=== PATIENT | female | born 1960 | race Caucasian/White ===

== ENCOUNTER 2016-07-17 14:18 | Emergency (ER) | payer OTHER ==
[2016-07-17 14:46] VITALS: BMI 25.0
--- NOTE | 2016-07-17 14:46 | PDOC ---
Attending Attestation - Medical Decision Making 07/17/16 15:02 Dr. Connell paged via phone answering service at 3:[address] Jones irrigation engineer for Dr. Connell. Dr. Jones responded to the page and the patients case was discussed at 3:[address] Jones <Lien Mascorro - Last Filed: 07/17/16 16:10> - Resident Resident Name: Saud Holland - ED Attending Attestation I have performed the following: I have examined & evaluated the patient, The case was reviewed & discussed with the resident, I agree w/resident's findings & plan, Exceptions are as noted - HPI HPI: 07/17/16 14:57 The patient is a 56-year-old female with a significant past medical history of diabetes, who presents to the emergency department with left eye pain. She was in her usual state of health until she "fell out of bed" last night." She states that she does not recall the details of the event, but woke up on the floor, with left eye pain. Since that time, the eye has been swollen and painful. The pain is of the eye itself and is worse with opening and closing. She states that she is unable to see out of that eye. She states that at best, she is able to differentiate between darkness and light. She denies any pain or suspected injury elsewhere. She denies headache, nausea/vomiting, focal weakness or paresthesias. 07/17/16 15:08 07/17/16 16:17 07/17/16 16:17 - Physicial Exam PE: 07/17/16 14:54 Vitals noted No facial bone tenderness The left eye has periorbital edema, but no evidence of proptosis There is considerable subconjunctival hemorrhage, especially inferior to the iris PERRLA, EOMI No hyphema Anterior chamber slightly cloudy Negative Kamar's sign Abrasion seen on Flourescein, overlying pupil and iris 07/17/16 15:06 07/17/16 15:08 07/17/16 16:17 - Medical Decision Making 07/17/16 15:00 The patient is well appearing and in no acute distress I am concerned for possible retrobulbar hematoma Paging ophthalmology Will CT head and facial bones 07/17/16 15:06 Case discussed with ophthalmology Will await CT scan and discuss with results 07/17/16 16:08 CT scans reviewed with radiologist, Dr. Dr. Kam No evidence of intracranial pathology No evidence of facial bone fracture, retrobulbar hematoma, optic nerve trauma The patient's pain has completely resolved She would like to go home Her daughter can assist her tonight and help her get to the naval inspector's office tomorrow Clinical impression: Facial contusion Corneal abrasion Case discussed with ophthalmology again He will see her in follow-up tomorrow morning I discussed the physical exam findings, ancillary test results and final diagnoses with the patient. I answered all of the patient's questions. The patient was satisfied with the care received and felt comfortable with the discharge plan and treatment plan. The patient will call their primary care physician within 24 hours to arrange follow-up and will return to the Emergency Department with any new, persistent or worsening symptoms. <Rickie Londono - Last Filed: 07/17/16 16:18> Discharge Disposition <Lien Mascorro - Last Filed: 07/17/16 16:10> - Discharge Dispostion Last Admission D/C Date: 01/27/16 <Rickie Londono - Last Filed: 07/17/16 16:18> - Diagnosis Facial contusion, Corneal abrasion, left - Discharge Dispostion Disposition: HOME Condition at time of disposition: Improved - Prescriptions Prescriptions: Erythromycin 0.5% Eye Ointment [Erythromycin 0.5% Eye Ointment -] 1 applic OD 5XD #1 tube Oxycodone HCl/Acetaminophen [Percocet 5-325 mg Tablet] 1 - 2 combo PO Q4H PRN # 9 tablet MDD 4 PRN Reason: Pain - Referrals Referrals: Flex Starr MD [Primary Care Provider] - Jaswant Jones MD [Staff Physician] - (See him tomorrow at either 9am or 1pm He is aware of your ER visit today) - Patient Instructions Printed Discharge Instructions: DI for Corneal Abrasion, DI for Closed Head Injury, DI for Contusion Additional Instructions: The pain in her left eye seems secondary to a scratch, which we call a corneal abrasion. It is important that you follow-up with the naval inspector tomorrow morning at 9 AM or tomorrow afternoon at 1 PM. He is aware of your emergency department visit and is expecting you. Use the medications as prescribed. Return to the emergency department immediately with ANY new, persistent or worsening symptoms. You MUST call and follow up with your doctor tomorrow. Please make sure your doctor reviews the results of your emergency department evaluation.
[2016-07-17] MEDS ORDERED: FLUORESCEIN NA 1 EA STRIP ONE (15:01)
[2016-07-17] MEDS ORDERED: TETRACAINE 0.5% OPHTH SOLN 2 ML BOTTLE ONE (15:02)
[2016-07-17 15:24] LABS: BASOPHIL 0.7 % (0-2.0); EOSINOPHIL 5.8 % (0-4.5); MCH 33.6 pg (25.7-33.7); MEAN CELL VOLUME 101.8 fl (80-96); MEAN PLT VOLUME 8.2 fl (7.5-11.1); NEUTROPHILS 65.3 % (42.8-82.8); PLATELET COUNT 286 K/MM3 (134-434); RDW 12.9 % (11.6-15.6); WHITE BLOOD COUNT 9.5 K/mm3 (4.0-10.0)
--- NOTE | 2016-07-17 15:47 | PDOC ---
History of Present Illness - General Chief Complaint: Injury Stated Complaint: EYE INJURY Time Seen by Provider: 07/17/16 14:46 - History of Present Illness Initial Comments: 07/17/16 15:07 56 yo F with significant PMHx of CAD (s/p stents on ASA and plavix),IDDM, and depression presents s/p fall and eye injury. She states that last night she fell out of bed unsure how. She remembers waking up and her son and daughter were there. She had eye pain and went back to sleep. When she woke she could not see out of eye and prompted trip to ED. She can not see out of left eye at all. Her right eye she is having difficulty see. Denies CP, SOB, abd. pain, N/V. Past History - Past Medical History Allergies/Adverse Reactions: Allergies Allergy/AdvReac Type Severity Reaction Status Date / Time No Known Drug Allergies Allergy Verified 07/17/16 14:32 Home Medications: Ambulatory Orders Aspirin [ASA -] 81 mg PO DAILY 01/23/16 Clopidogrel Bisulfate [Clopidogrel] 75 mg PO DAILY 01/23/16 Duloxetine HCl [Cymbalta -] 90 mg PO DAILY 01/23/16 Lovastatin [Altoprev] 40 mg PO BID 01/23/16 Insulin Sliding Scale [Novolog Vial Sliding Scale -] 1 vial SQ ACHS units 01/26 Erythromycin 0.5% Eye Ointment [Erythromycin 0.5% Eye Ointment -] 1 applic OD 5XD #1 tube 07/17/16 Insulin (Novolog 70/30) [Novolog Mix 70/30 Vial -] 32 units SQ BID 07/17/16 Oxycodone HCl/Acetaminophen [Percocet 5-325 mg Tablet] 1 - 2 combo PO Q4H PRN # 9 tablet MDD 4 07/17/16 Primidone [Mysoline] 750 mg PO DAILY 07/17/16 Anemia: No Asthma: No Cancer: Yes (VAGINAL/CERVICAL CANCER- S/P LASAR SURGERY) Cardiac Disorders: Yes (ASHD, TRIPLE BYPASS, S/P [place] X1 in 2004,STENT X'S 3) CVA: No COPD: No CHF: No Dementia: No Diabetes: Yes (IDDM) GI Disorders: No Disorders: No HTN: Yes Hypercholesterolemia: Yes Liver Disease: No Suicide Attempt (Hx): No Seizures: No Thyroid Disease: No - Surgical History Abdominal Surgery: No Appendectomy: No Cardiac Surgery: Yes (THREE STENTS 2006) Cholecystectomy: No Lung Surgery: No Neurologic Surgery: No Orthopedic Surgery: Yes (BILATERAL CTR) - Immunization History Td Vaccination: No TDAP Vaccination: No Immunization Up to Date: No - Psycho/Social/Smoking Cessation Hx Anxiety: No Suicidal Ideation: No Smoking Status: Yes Smoking History: Never smoked Years of Tobacco Use: 15 Have you smoked in the past 12 months: No Number of Cigarettes Smoked Daily: 4 Cigars Per Day: 10 Information on smoking cessation initiated: No 'Breaking Loose' booklet given: 01/24/16 Hx Alcohol Use: No Drug/Substance Use Hx: No Substance Use Type: None Hx Substance Use Treatment: No Review of Systems - Review of Systems HEENTM: Yes: Eye Pain, Blurred Vision, Tearing, Recent change in vision All Other Systems: Reviewed and Negative *Physical Exam - Vital Signs Last Vital Signs Temp Pulse Resp BP Pulse Ox 98.2 F 72 17 131/56 99 07/17/16 14:32 07/17/16 14:32 07/17/16 14:32 07/17/16 14:32 07/17/16 14:32 - Physical Exam General Appearance: Yes: Moderate Distress HEENT: positive: Photophobia, Lesions (left eye shows subconjuctival hemorrhage. Pupil is reactive. ) ED Treatment Course - LABORATORY CBC & Chemistry Diagram: 07/17/16 14:56 07/17/16 14:56 - RADIOLOGY Radiograph Interpretation: 07/17/16 16:47 EXAM#: TYPE/EXAM: RESULT: [id number] CT/HEAD CT WITHOUT CONTRAST [id number] CT/ FACIAL BONES CT W/O CONTRAST Status post trauma CT scan of the brain without intravenous contrast Since 06/07/2015, there remains mild volume loss, ventricular dilatation and probable minimal periventricular chronic microvascular ischemic changes. No mass lesion, focal acute infarct or intracranial hemorrhage is identified. There is no shift of the midline structures. The calvarium is intact. Mild mucosal thickening in the ethmoid air cells. Minimal mucosal thickening and probable tiny air-fluid level in the left maxillary antrum. Calcification of the cavernous carotid arteries are present. Mild left periorbital soft tissue swelling. IMPRESSION: Volume loss without evidence of acute intracranial pathology. Mild left periorbital soft tissue swelling. Correlate clinically. CT scan of the facial bones without intravenous contrast. Coronal and sagittal reconstruction images were obtained. No gross fracture is identified. Both orbits are intact . There is mild left periorbital soft tissue swelling. Both TM joints are intact. Mild mucosal thickening in the ethmoid air cells and minimal air-fluid level in the left maxillary antrum, posteriorly Mucosal thickening is obstructing the left maxillary ostium and ethmoid infundibulum. Bilateral upper neck and submandibular subcentimeter lymph nodes are present which are nonspecific Visualized intracranial contents appear unremarkable. IMPRESSION: Mild left periorbital soft tissue swelling. No gross fracture is identified. No retrobulbar abnormal attenuation is identified. Mild ethmoid chronic sinusitis and suggestion of minimal acute sinusitis in the left maxillary antrum. Obstruction of the left maxillary ostium and ethmoidal infundibulum. Reported By: Dafne Kam MD 07/17/16 1609 Medical Decision Making - Medical Decision Making 07/17/16 16:15 A:56 yo F with significant PMHx of CAD (s/p stents on ASA and plavix),IDDM, and depression presents s/p fall and eye injury. P: * CBC, CMP. * Fluorsciene test reveals corneal abrasion * Will consult Opthalmology *DC/Admit/Observation/Transfer Diagnosis at time of Disposition: Facial contusion Qualifiers: Encounter type: initial encounter Qualified Code(s): S00.83XA - Contusion of other part of head, initial encounter Corneal abrasion, left Qualifiers: Encounter type: initial encounter Qualified Code(s): S05.02XA - Injury of conjunctiva and corneal abrasion without foreign body, left eye, initial encounter - Discharge Dispostion Disposition: HOME Condition at time of disposition: Improved - Prescriptions Prescriptions: Erythromycin 0.5% Eye Ointment [Erythromycin 0.5% Eye Ointment -] 1 applic OD 5XD #1 tube Oxycodone HCl/Acetaminophen [Percocet 5-325 mg Tablet] 1 - 2 combo PO Q4H PRN # 9 tablet MDD 4 PRN Reason: Pain - Referrals Referrals: Flex Starr MD [Primary Care Provider] - Jaswant Jones MD [Staff Physician] - (See him tomorrow at either 9am or 1pm He is aware of your ER visit today) - Patient Instructions Printed Discharge Instructions: DI for Corneal Abrasion, DI for Contusion, DI for Closed Head Injury Additional Instructions: The pain in her left eye seems secondary to a scratch, which we call a corneal abrasion. It is important that you follow-up with the bingo caller tomorrow morning at 9 AM or tomorrow afternoon at 1 PM. He is aware of your emergency department visit and is expecting you. Use the medications as prescribed. Return to the emergency department immediately with ANY new, persistent or worsening symptoms. You MUST call and follow up with your doctor tomorrow. Please make sure your doctor reviews the results of your emergency department evaluation.
[2016-07-17 16:19] LABS: INR 0.94 (0.82-1.09); PROTHROMBIN TIME (PATIENT) 10.3 SEC (9.98-11.88)
[2016-07-17 16:21] LABS: ACTIVATED PTT 30.5 SECONDS (26.9-34.4)
[2016-07-17 17:07] VITALS: BP 126/58; PULSE 75; TEMP 98.6
== END 2016-07-17 17:07 | disposition home or self-care (01) ==
LOC: JER 14:18
DX: S00.83XA Contusion of other part of head, initial encounter (principal); S05.02XA Injury of conjunctiva and corneal abrasion without foreign body, left eye, initial encounter; H11.32 Conjunctival hemorrhage, left eye; I25.2 Old myocardial infarction; I25.10 Atherosclerotic heart disease of native coronary artery without angina pectoris; I10 Essential (primary) hypertension; Z95.5 Presence of coronary angioplasty implant and graft; E11.9 Type 2 diabetes mellitus without complications; Z79.4 Long term (current) use of insulin; E78.00 Pure hypercholesterolemia, unspecified; W06.XXXA Fall from bed, initial encounter; Y93.89 Activity, other specified; Y92.032 Bedroom in apartment as the place of occurrence of the external cause
CPT/HCPCS: 36415; 70450-TC; 70486-TC; 71010-TC; 85025; 85610; 85730; 99284-25

== ENCOUNTER 2016-07-27 05:45 | Emergency (ER) | payer OTHER ==
[2016-07-27 06:16] VITALS: BMI 23.3
[2016-07-27 07:30] LABS: BASOPHIL 0.4 % (0-2.0); EOSINOPHIL 0.8 % (0-4.5); MCH 33.7 pg (25.7-33.7); MCHC 33.1 g/dl (32.0-36.0); MEAN CELL VOLUME 101.7 fl (80-96); MEAN PLT VOLUME 7.9 fl (7.5-11.1); NEUTROPHILS 81.6 % (42.8-82.8); PLATELET COUNT 255 K/MM3 (134-434); WHITE BLOOD COUNT 12.9 K/mm3 (4.0-10.0)
[2016-07-27 08:09] LABS: ALBUMIN 3.5 g/dl (3.4-5.0); ANION GAP 7 (8-16); CALCIUM 8.7 mg/dL (8.5-10.1); CO2 28 mmol/L (21-32); CREATININE 0.8 mg/dL (0.55-1.02); SGOT/AST 42 U/L (15-37); SGPT/ALT 49 U/L (12-78); TOT PROT 6.7 g/dl (6.4-8.2)
[2016-07-27 08:13] LABS: ALK PHOS 102 U/L (45-117); BILIRUBIN,TOTAL 0.2 mg/dL (0.2-1.0)
--- NOTE | 2016-07-27 08:20 | PDOC ---
History of Present Illness - General Chief Complaint: Blood Sugar Problem Stated Complaint: BLOOD SUGAR PROBLEM Time Seen by Provider: 07/27/16 07:11 - History of Present Illness Initial Comments: 08/08/16 10:18 56 yo here with hypoglycemia, Past History - Past Medical History Allergies/Adverse Reactions: Allergies Allergy/AdvReac Type Severity Reaction Status Date / Time No Known Drug Allergies Allergy Verified 07/27/16 06:03 Home Medications: Ambulatory Orders Aspirin [ASA -] 81 mg PO DAILY 01/23/16 Clopidogrel Bisulfate [Clopidogrel] 75 mg PO DAILY 01/23/16 Duloxetine HCl [Cymbalta -] 90 mg PO DAILY 01/23/16 Lovastatin [Altoprev] 40 mg PO BID 01/23/16 Insulin Sliding Scale [Novolog Vial Sliding Scale -] 1 vial SQ ACHS units 01/26 Insulin (Novolog 70/30) [Novolog Mix 70/30 Vial -] 32 units SQ BID 07/17/16 Oxycodone HCl/Acetaminophen [Percocet 5-325 mg Tablet] 1 - 2 combo PO Q4H PRN # 9 tablet MDD 4 07/17/16 Primidone [Mysoline] 750 mg PO DAILY 07/17/16 Dextrose Tablet [Glucose Tablet -] 4 gm PO PRN PRN #30 tab.chew 07/27/16 Anemia: No Asthma: No Cancer: Yes (VAGINAL/CERVICAL CANCER- S/P LASAR SURGERY) Cardiac Disorders: Yes (ASHD, TRIPLE BYPASS, S/P CT X1 in 2004,STENT X'S 3) CVA: No COPD: No CHF: No Dementia: No Diabetes: Yes (IDDM) GI Disorders: No Disorders: No HTN: Yes Hypercholesterolemia: Yes Liver Disease: No Suicide Attempt (Hx): No Seizures: No Thyroid Disease: No - Surgical History Abdominal Surgery: No Appendectomy: No Cardiac Surgery: Yes (THREE STENTS 2006) Cholecystectomy: No Lung Surgery: No Neurologic Surgery: No Orthopedic Surgery: Yes (BILATERAL CTR) - Immunization History Td Vaccination: No TDAP Vaccination: No Immunization Up to Date: No - Psycho/Social/Smoking Cessation Hx Anxiety: No Suicidal Ideation: No Smoking Status: Yes Smoking History: Current every day smoker Years of Tobacco Use: 15 Have you smoked in the past 12 months: No Number of Cigarettes Smoked Daily: 4 Cigars Per Day: 10 Information on smoking cessation initiated: No 'Breaking Loose' booklet given: 01/24/16 Hx Alcohol Use: No Drug/Substance Use Hx: No Substance Use Type: None Hx Substance Use Treatment: No *Physical Exam - Vital Signs Last Vital Signs Temp Pulse Resp BP Pulse Ox 97.8 F 75 20 104/50 98 07/27/16 06:04 07/27/16 06:04 07/27/16 06:04 07/27/16 06:04 07/27/16 06:04 ED Treatment Course - LABORATORY CBC & Chemistry Diagram: 07/27/16 07:24 07/27/16 07:24 Medical Decision Making - Medical Decision Making 08/08/16 10:17 56 yo F here with episode of hypoglycemia, treated. now asymptomatic. no cp no sob. case discussed with PA and agree with assessement and plan. short observation , if remains normoglycemia dc home. ensure tolerating po. *DC/Admit/Observation/Transfer Diagnosis at time of Disposition: Hypoglycemia - Discharge Dispostion Disposition: HOME - Prescriptions Prescriptions: Dextrose Tablet [Glucose Tablet -] 4 gm PO PRN PRN #30 tab.chew PRN Reason: low blood sugar - Referrals Referrals: Flex Starr MD [Primary Care Provider] - - Patient Instructions Printed Discharge Instructions: DI for Hypoglycemia Additional Instructions: Continue all of your prescribed medications. Use glucose tablets as prescribed in a hypoglycemic (low blood sugar) emergency. Return here for low blood sugar, dizziness, lightheadedness, sweating, or any other concerning symptoms. Follow up with Dr. Starr as scheduled next week.
[2016-07-27 08:34] LABS: GLUCOSE,RANDOM 342 mg/dL (74-106)
--- NOTE | 2016-07-27 08:37 | PDOC ---
History of Present Illness - General Chief Complaint: Blood Sugar Problem Stated Complaint: BLOOD SUGAR PROBLEM Time Seen by Provider: 07/27/16 07:11 - History of Present Illness Initial Comments: 07/27/16 10:27 CHIEF COMPLAINT: Hypoglycemia HISTORY OF PRESENT ILLNESS: This is a 56 year old female with a history of CAD s /p CABG, COPD, and IDDM (on 70/30 32 units in morning and 12 in evening) brought in by ambulance for hypoglycemia. The patient reports that she gave herself 14 units instead of 12 last night after a big meal. This morning, her daughter had difficulty waking her up and activated EMS. Fingerstick on their arrival was reported to be 40. She was given oral glucose and then juice. On arrival to the ED, she is alert and oriented and denies all complaints. Vital signs are within normal limits. Fingerstick is 200. REVIEW OF SYSTEMS: GENERAL/CONSTITUTIONAL: No fever or chills. No weakness. No weight change. HEAD, EYES, EARS, NOSE AND THROAT: No change in vision. No ear pain or discharge. No sore throat. CARDIOVASCULAR: No chest pain or palpitations. RESPIRATORY: No cough, wheezing, or shortness of breath. GASTROINTESTINAL: No nausea, vomiting, diarrhea or constipation. GENITOURINARY: No dysuria, frequency, or change in urination. MUSCULOSKELETAL: No joint or muscle swelling or pain. No neck or back pain. SKIN: No rash or easy bruising. NEUROLOGIC: No headache, vertigo, loss of consciousness, or loss of sensation. PSYCHIATRIC: No depression or anxiety. ENDOCRINE: See HPI. HEMATOLOGIC/LYMPHATIC: No anemia, easy bleeding, or history of blood clots. ALLERGIC/IMMUNOLOGIC: No hives or skin allergy. No latex allergy. PHYSICAL EXAM: GENERAL: The patient is awake, alert, and fully oriented, in no acute distress. HEAD: Normal with no signs of trauma. ENT: Pupils equal, round and reactive to light, extraocular movements intact, sclera anicteric, conjunctiva clear. Neck supple. LUNGS: Clear to auscultation bilaterally. Normal excursion. No respiratory distress or use of accessory muscles. CV: RRR, S1/S2, no MRG. Cap refill < 2 sec. ABDOMEN: Soft, non-distended, non-tender. EXTREMITIES: Normal range of motion, no edema. NEUROLOGICAL: Normal speech, normal gait. CN II-XII grossly intact. Mild tremor (baseline per patient). PSYCH: Normal mood, normal affect. SKIN: Warm, dry, normal turgor, no rashes or lesions noted. Past History - Past Medical History Allergies/Adverse Reactions: Allergies Allergy/AdvReac Type Severity Reaction Status Date / Time No Known Drug Allergies Allergy Verified 07/27/16 06:03 Home Medications: Ambulatory Orders Aspirin [ASA -] 81 mg PO DAILY 01/23/16 Clopidogrel Bisulfate [Clopidogrel] 75 mg PO DAILY 01/23/16 Duloxetine HCl [Cymbalta -] 90 mg PO DAILY 01/23/16 Lovastatin [Altoprev] 40 mg PO BID 01/23/16 Insulin Sliding Scale [Novolog Vial Sliding Scale -] 1 vial SQ ACHS units 01/26 Insulin (Novolog 70/30) [Novolog Mix 70/30 Vial -] 32 units SQ BID 07/17/16 Oxycodone HCl/Acetaminophen [Percocet 5-325 mg Tablet] 1 - 2 combo PO Q4H PRN # 9 tablet MDD 4 07/17/16 Primidone [Mysoline] 750 mg PO DAILY 07/17/16 Dextrose Tablet [Glucose Tablet -] 4 gm PO PRN PRN #30 tab.chew 07/27/16 Anemia: No Asthma: No Cancer: Yes (VAGINAL/CERVICAL CANCER- S/P LASAR SURGERY) Cardiac Disorders: Yes (ASHD, TRIPLE BYPASS, S/P [place] X1 in 2004,STENT X'S 3) CVA: No COPD: No CHF: No Dementia: No Diabetes: Yes (IDDM) GI Disorders: No Disorders: No HTN: Yes Hypercholesterolemia: Yes Liver Disease: No Suicide Attempt (Hx): No Seizures: No Thyroid Disease: No - Surgical History Abdominal Surgery: No Appendectomy: No Cardiac Surgery: Yes (THREE STENTS 2006) Cholecystectomy: No Lung Surgery: No Neurologic Surgery: No Orthopedic Surgery: Yes (BILATERAL CTR) - Immunization History Td Vaccination: No TDAP Vaccination: No Immunization Up to Date: No - Psycho/Social/Smoking Cessation Hx Anxiety: No Suicidal Ideation: No Smoking Status: Yes Smoking History: Current every day smoker Years of Tobacco Use: 15 Have you smoked in the past 12 months: No Number of Cigarettes Smoked Daily: 4 Cigars Per Day: 10 Information on smoking cessation initiated: No 'Breaking Loose' booklet given: 01/24/16 Hx Alcohol Use: No Drug/Substance Use Hx: No Substance Use Type: None Hx Substance Use Treatment: No *Physical Exam - Vital Signs Last Vital Signs Temp Pulse Resp BP Pulse Ox 97.8 F 75 20 104/50 98 07/27/16 06:04 07/27/16 06:04 07/27/16 06:04 07/27/16 06:04 07/27/16 06:04 ED Treatment Course - LABORATORY CBC & Chemistry Diagram: 07/27/16 07:24 07/27/16 07:24 - ADDITIONAL ORDERS Additional order review: Laboratory Results 07/27/16 07:24 Sodium 137 Potassium 5.0 D Chloride 102 Carbon Dioxide 28 Anion Gap 7 L BUN 14 D Creatinine 0.8 D Creat Clearance w eGFR > 60 Random Glucose 342 H* D Calcium 8.7 Total Bilirubin 0.2 D AST 42 H D ALT 49 Alkaline Phosphatase 102 Total Protein 6.7 Albumin 3.5 D 07/27/16 07:24 RBC 4.04 MCV 101.7 H MCHC 33.1 RDW 13.0 MPV 7.9 Neutrophils % 81.6 D Lymphocytes % 12.0 D Monocytes % 5.2 Eosinophils % 0.8 D Basophils % 0.4 Medical Decision Making - Medical Decision Making 07/27/16 10:33 A/P: 56 year old female with hypoglycemic episode after self-administering additional insulin last night. -Basic labs sent; glucose is 342 without elevated AG -Patient re-evaluated and again denies all complaints -Has been observed for 4 hours in ED -Will dc home with followup instructions and return precautions *DC/Admit/Observation/Transfer Diagnosis at time of Disposition: Hypoglycemia - Discharge Dispostion Admit: No - Prescriptions Prescriptions: Dextrose Tablet [Glucose Tablet -] 4 gm PO PRN PRN #30 tab.chew PRN Reason: low blood sugar - Referrals Referrals: Flex Starr MD [Primary Care Provider] - - Patient Instructions Printed Discharge Instructions: DI for Hypoglycemia Additional Instructions: Continue all of your prescribed medications. Use glucose tablets as prescribed in a hypoglycemic (low blood sugar) emergency. Return here for low blood sugar, dizziness, lightheadedness, sweating, or any other concerning symptoms. Follow up with Dr. Starr as scheduled next week.
[2016-07-27 10:42] VITALS: BP 115/63; PULSE 76; TEMP 98.6
[2016-07-27 10:47] LABS: URINE APPEARANCE CLEAR; URINE BILIRUBIN NEGATIVE (NEGATIVE); URINE BLOOD NEGATIVE (NEGATIVE); URINE COLOR STRAW; URINE GLUCOSE (UA) 3+ (NEGATIVE); URINE KETONE NEGATIVE (NEGATIVE); URINE LEUK ESTERASE NEGATIVE (NEGATIVE); URINE NITRITE NEGATIVE (NEGATIVE); URINE PROTEIN NEGATIVE (NEGATIVE); URINE UROBILINOGEN NEGATIVE E.U./dl (0.2-1.0)
== END 2016-07-27 10:43 | disposition home or self-care (01) ==
LOC: JER 05:45
DX: E11.649 Type 2 diabetes mellitus with hypoglycemia without coma (principal); Z79.4 Long term (current) use of insulin; I25.10 Atherosclerotic heart disease of native coronary artery without angina pectoris; I10 Essential (primary) hypertension; F17.210 Nicotine dependence, cigarettes, uncomplicated; Z95.1 Presence of aortocoronary bypass graft; Z95.5 Presence of coronary angioplasty implant and graft; I25.2 Old myocardial infarction; E78.00 Pure hypercholesterolemia, unspecified
CPT/HCPCS: 36415; 80053; 81003; 85025; 99282-25

== ENCOUNTER 2016-08-24 18:06 | Emergency (ER) | payer OTHER ==
[2016-08-24 18:25] VITALS: TEMP 97.6; BMI 21.6
[2016-08-24 19:37] VITALS: BP 106/50; PULSE 64
--- NOTE | 2016-08-24 21:14 | PDOC ---
History of Present Illness - General History Source: Patient Exam Limitations: No Limitations - History of Present Illness Initial Comments: 08/24/16 21:37 The patient is a 56 year old female, with a significant past medical history of IDDM, CAD s/p CABG, COPD, previous head trauma with residual resting tremor and neuropathy, who presents to the emergency room today via ambulance after being found in her bed by her daughter unresponsive with a blood glucose of 11. Dextrose IV was administered in field and blood glucose marta to 151 upon arrival to the ER. The patient states that she was sleeping in bed when her daughter found her after 6:30pm. The patient notes that she usually makes sure she eats dinner around 6:00pm so that her sugar doesnt drop. The patient has no complaints at this time. Denies falling, head trauma. Denies chest pain, SOB, cough. Allergies: none reported Social Hx: tobacco use (3 packs every 9 or 10 days) PCP: Dr. Flex Starr <Mary Ring - Last Filed: 08/24/16 21:37> <Alice Barnett - Last Filed: 08/26/16 16:52> - General Chief Complaint: Blood Sugar Problem Stated Complaint: LOW SUGAR Time Seen by Provider: 08/24/16 18:36 Past History <Mary Ring - Last Filed: 08/24/16 21:37> - Past Medical History Anemia: No Asthma: No Cancer: Yes (VAGINAL/CERVICAL CANCER- S/P LASAR SURGERY) Cardiac Disorders: Yes (ASHD, TRIPLE BYPASS, S/P [place] X1 in 2004,STENT X'S 3) CVA: No COPD: No CHF: No Dementia: No Diabetes: Yes (IDDM) GI Disorders: No Disorders: No HTN: Yes Hypercholesterolemia: Yes Liver Disease: No Suicide Attempt (Hx): No Seizures: No Thyroid Disease: No - Surgical History Abdominal Surgery: No Appendectomy: No Cardiac Surgery: Yes (THREE STENTS 2006) Cholecystectomy: No Lung Surgery: No Neurologic Surgery: No Orthopedic Surgery: Yes (BILATERAL CTR) - Immunization History Td Vaccination: No TDAP Vaccination: No Immunization Up to Date: No - Psycho/Social/Smoking Cessation Hx Anxiety: No Suicidal Ideation: No Smoking Status: Yes Smoking History: Never smoked Years of Tobacco Use: 15 Have you smoked in the past 12 months: No Number of Cigarettes Smoked Daily: 4 Cigars Per Day: 10 Information on smoking cessation initiated: No 'Breaking Loose' booklet given: 01/24/16 Hx Alcohol Use: No Drug/Substance Use Hx: No Substance Use Type: None Hx Substance Use Treatment: No <Alice Barnett - Last Filed: 08/26/16 16:52> - Past Medical History Allergies/Adverse Reactions: Allergies Allergy/AdvReac Type Severity Reaction Status Date / Time No Known Drug Allergies Allergy Verified 08/24/16 18:24 Home Medications: Ambulatory Orders Aspirin [ASA -] 81 mg PO DAILY 01/23/16 Clopidogrel Bisulfate [Clopidogrel] 75 mg PO DAILY 01/23/16 Duloxetine HCl [Cymbalta -] 90 mg PO DAILY 01/23/16 Lovastatin [Altoprev] 40 mg PO BID 01/23/16 Insulin Sliding Scale [Novolog Vial Sliding Scale -] 1 vial SQ ACHS units 01/26 Insulin (Novolog 70/30) [Novolog Mix 70/30 Vial -] 32 units SQ BID 07/17/16 Oxycodone HCl/Acetaminophen [Percocet 5-325 mg Tablet] 1 - 2 combo PO Q4H PRN # 9 tablet MDD 4 07/17/16 Primidone [Mysoline] 750 mg PO DAILY 07/17/16 Dextrose Tablet [Glucose Tablet -] 4 gm PO PRN PRN #30 tab.chew 07/27/16 Review of Systems - Review of Systems Able to Perform ROS?: Yes Comments:: 08/24/16 21:38 CONSTITUTIONAL: Absent: fever, chills, diaphoresis, generalized weakness, malaise, loss of appetite HEENT: Absent: rhinorrhea, nasal congestion, throat pain, throat swelling, difficulty swallowing, mouth swelling, ear pain, eye pain, visual Changes CARDIOVASCULAR: Absent: chest pain, syncope, palpitations, irregular heart rate, lightheadedness , peripheral edema RESPIRATORY: Absent: cough, shortness of breath, dyspnea with exertion, orthopnea, wheezing, stridor, hemoptysis GASTROINTESTINAL: Absent: abdominal pain, abdominal distension, nausea, vomiting, diarrhea, constipation, melena, hematochezia GENITOURINARY: Absent: dysuria, frequency, urgency, hesitancy, hematuria, flank pain, genital pain MUSCULOSKELETAL: Absent: myalgia, arthralgia, joint swelling SKIN: Absent: rash, itching, pallor HEMATOLOGIC/IMMUNOLOGIC: Absent: easy bleeding, easy bruising, lymphadenopathy, frequent infections ENDOCRINE: Absent: unexplained weight gain, unexplained weight loss, heat intolerance, cold intolerance NEUROLOGIC: Absent: headache, focal weakness or paresthesias, dizziness, unsteady gait, seizure, mental status changes, bladder or bowel incontinence PSYCHIATRIC: Absent: anxiety, depression, suicidal or homicidal ideation, hallucinations. <Mary Ring - Last Filed: 08/24/16 21:37> *Physical Exam - Vital Signs Last Vital Signs Temp Pulse Resp BP Pulse Ox 97.6 F 64 17 106/50 100 08/24/16 18:22 08/24/16 19:36 08/24/16 19:36 08/24/16 19:36 08/24/16 19:36 - Physical Exam Comments: 08/24/16 21:38 GENERAL: Well developed, well nourished. Awake and alert. No acute distress. HEENT: Normocephalic, atraumatic. PERRLA, EOMI. No conjunctival pallor. Sclera are non- icteric. Moist mucous membranes. Oropharynx is clear. NECK: Supple. Full ROM. No JVD. Carotid pulses 2+ and symmetric, without bruits. No thyromegaly. No lymphadenopathy. CARDIOVASCULAR: Regular rate and rhythm. No murmurs, rubs, or gallops. Distal pulses are 2+ and symmetric. PULMONARY: No evidence of respiratory distress. Lungs clear to auscultation bilaterally. No wheezing, rales or rhonchi. ABDOMINAL: Soft. Non-tender. Non-distended. No rebound or guarding. No organomegaly. Normoactive bowel sounds. MUSCULOSKELETAL Normal range of motion at all joints. No bony deformities or tenderness. No CVA tenderness. EXTREMITIES: No cyanosis. No clubbing. No edema. No calf tenderness. SKIN: +scars from orthopedic surgery on the lateral to the front of the left leg. Warm and dry. Normal capillary refill. No rashes. No jaundice. NEUROLOGICAL: +resting tremor from previous head trauma. Alert, awake, appropriate. Cranial nerves 2-12 intact. No deficits to light touch and temperature in face, upper extremities and lower extremities. No motor deficits in the in face, upper extremities and lower extremities. Normoreflexic in the upper and lower extremities. Normal speech. Toes are down-going bilaterally. PSYCHIATRIC: Cooperative. Good eye contact. Appropriate mood and affect. <Mary Ring - Last Filed: 08/24/16 21:37> - Vital Signs Last Vital Signs Temp Pulse Resp BP Pulse Ox 97.6 F 64 17 106/50 100 08/24/16 18:22 08/24/16 19:36 08/24/16 19:36 08/24/16 19:36 08/24/16 19:36 <Alice Barnett - Last Filed: 08/26/16 16:52> ED Treatment Course - ADDITIONAL ORDERS Additional order review: Laboratory Results 08/24/16 18:57 POC Glucometer [id number] 08/24/16 18:57 POC Glucometer [id number] <Mary Ring - Last Filed: 08/24/16 21:37> - ADDITIONAL ORDERS Additional order review: Laboratory Results 08/24/16 18:57 POC Glucometer [id number] 08/24/16 18:57 POC Glucometer [id number] <Alice Barnett - Last Filed: 08/26/16 16:52> Medical Decision Making - Medical Decision Making 08/24/16 22:15 56-year-old female found to be hypoglycemic at home . She is insulin-dependent diabetic and had not had any supper when she was found unresponsive. After dextrose given an saline. She became alert. She has no gross focal neuro deficits that are new. 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 She is alert and oriented 3. She refused. Her blood work. She does have a significant history of coronary artery disease. An EKG was done that showed no changes from her prior. There is no signs of any acute ischemia and she denies any acute chest pain, shortness of breath, nausea or vomiting. She said that she felt well earlier in the day. She uses a walker because she had a severe fracture of her left leg about 8 months ago and has some persistent pain and difficulties ambulating. -sHe is afebrile, normotensive -pt refused blood work and wanted to take a cab home. repeat bgm>[id number] She lives w her daughter. She ate dinner in ER 08/26/16 16:51 <Alice Barnett - Last Filed: 08/26/16 16:52> *DC/Admit/Observation/Transfer - Attestations Scribe Attestion: 08/24/16 21:38 Documentation prepared by TED Knott, acting as pediatric medical assistant for Alice Barnett MD. <Mary Ring - Last Filed: 08/24/16 21:37> <Alice Barnett - Last Filed: 08/26/16 16:52> Diagnosis at time of Disposition: Essential tremor, Hypoglycemia - Discharge Dispostion Condition at time of disposition: Stable - Referrals Referrals: Flex Starr MD [Primary Care Provider] - - Patient Instructions Printed Discharge Instructions: DI for Hypoglycemia Additional Instructions: Please make sure you eat and check your blood sugar frequently tonight
--- NOTE | 2016-08-25 14:06 | EKG ---
Test Reason : Blood Pressure : / mmHG Vent. Rate : 068 BPM Atrial Rate : 068 BPM P-R Int : 156 ms QRS Dur : 068 ms QT Int : 408 ms P-R-T Axes : 072 056 049 degrees QTc Int : 433 ms NORMAL SINUS RHYTHM NORMAL ECG WHEN COMPARED WITH ECG OF 23-JAN-2016 19:02, NO SIGNIFICANT CHANGE WAS FOUND Confirmed by SAMI MUNROE MD ([id number]) on 08/25/2016 2:05:51 PM Referred By: Confirmed By:SAMI MUNROE MD
== END 2016-08-24 22:48 | disposition home or self-care (01) ==
LOC: JER 18:06
DX: E16.2 Hypoglycemia, unspecified (principal); E11.9 Type 2 diabetes mellitus without complications; G25.0 Essential tremor; E78.00 Pure hypercholesterolemia, unspecified; I10 Essential (primary) hypertension; I25.10 Atherosclerotic heart disease of native coronary artery without angina pectoris; I25.2 Old myocardial infarction; J44.9 Chronic obstructive pulmonary disease, unspecified; G62.9 Polyneuropathy, unspecified; Z95.1 Presence of aortocoronary bypass graft; Z95.5 Presence of coronary angioplasty implant and graft; Z79.4 Long term (current) use of insulin; Z79.82 Long term (current) use of aspirin; Z85.41 Personal history of malignant neoplasm of cervix uteri
CPT/HCPCS: 93005; 93010; 99281-25

== ENCOUNTER 2016-08-30 03:44 | Observation (INO) | payer OTHER ==
--- NOTE | 2016-08-30 03:51 | PDOC ---
History of Present Illness - General History Source: Patient Exam Limitations: No Limitations - History of Present Illness Initial Comments: 08/30/16 06:36 The patient is a 56 year old female, with a significant past medical history of HTN, HLD, IDDM, CAD s/p CABG, COPD, [place](2004), previous head trauma with residual resting tremor and neuropathy, who presents to the emergency department complaining of low blood glucose last night. The patient reports her blood glucose was 70 last night. However, per EMS the patients blood sugar was 40 when they arrived on scene. EMS administered D10, which elevated her sugar to 80. Patient reports she takes 14 units of BPH BID and she uses a novopen as needed. Patient reports she has been eating normally, and does not know why her blood sugar keeps dropping. Patient reports she lives at home with daughter. Patient states she feels fine now and is ready to go home. She denies any dysuria, hematuria, frequency, or urgency. She denies any abdominal pain, nausea , vomiting, diarrhea, or constipation. She denies any fever, chills, headache, or dizziness. Per records, the patient was here on 08/23/16 with similar symptoms. Past Surgical History: Cardiac Stents(X3), triple bypass, Social History: Current everyday smoker. No ETOH or drug use PCP: Dr. Flex Starr <Rd Santamaria - Last Filed: 08/30/16 07:01> <Roxie Hughes - Last Filed: 08/30/16 20:34> - General Stated Complaint: HIGH BLOOD SUGAR Time Seen by Provider: 08/30/16 03:50 Past History <Rd Santamaria - Last Filed: 08/30/16 07:01> - Past Medical History Anemia: No Asthma: No Cancer: Yes (VAGINAL/CERVICAL CANCER- S/P LASAR SURGERY) Cardiac Disorders: Yes (ASHD, TRIPLE BYPASS, S/P [place] X1 in 2004,STENT X'S 3) CVA: No COPD: No CHF: No Dementia: No Diabetes: Yes (IDDM) GI Disorders: No Disorders: No HTN: Yes Hypercholesterolemia: Yes Liver Disease: No Suicide Attempt (Hx): No Seizures: No Thyroid Disease: No - Surgical History Abdominal Surgery: No Appendectomy: No Cardiac Surgery: Yes (THREE STENTS 2006) Cholecystectomy: No Lung Surgery: No Neurologic Surgery: No Orthopedic Surgery: Yes (BILATERAL CTR) - Immunization History Td Vaccination: No TDAP Vaccination: No Immunization Up to Date: No - Psycho/Social/Smoking Cessation Hx Anxiety: No Suicidal Ideation: No Smoking Status: Yes Smoking History: Current every day smoker Years of Tobacco Use: 15 Have you smoked in the past 12 months: No Number of Cigarettes Smoked Daily: 4 Cigars Per Day: 10 'Breaking Loose' booklet given: 01/24/16 Hx Alcohol Use: No Drug/Substance Use Hx: No Substance Use Type: None Hx Substance Use Treatment: No <Roxie Hughes - Last Filed: 08/30/16 20:34> - Past Medical History Allergies/Adverse Reactions: Allergies Allergy/AdvReac Type Severity Reaction Status Date / Time No Known Drug Allergies Allergy Verified 08/30/16 03:53 Home Medications: Ambulatory Orders Aspirin [ASA -] 81 mg PO DAILY 01/23/16 Clopidogrel Bisulfate [Clopidogrel] 75 mg PO DAILY 01/23/16 Duloxetine HCl [Cymbalta -] 90 mg PO DAILY 01/23/16 Lovastatin [Altoprev] 40 mg PO BID 01/23/16 Insulin Sliding Scale [Novolog Vial Sliding Scale -] 1 vial SQ ACHS units 01/26 Insulin (Novolog 70/30) [Novolog Mix 70/30 Vial -] 32 units SQ AM 07/17/16 Primidone [Mysoline] 750 mg PO DAILY 07/17/16 Insulin (Novolog 70/30) [Novolog Mix 70/30 Flexpen -] 12 units SQ HS 08/30/16 Review of Systems - Review of Systems Able to Perform ROS?: Yes Comments:: 08/30/16 06:36 GENERAL/CONSTITUTIONAL: Yes: +low blood glucose. No fever or chills. No weakness. HEAD, EYES, EARS, NOSE AND THROAT: No change in vision. No ear pain or discharge. No sore throat. CARDIOVASCULAR: No chest pain or shortness of breath. RESPIRATORY: No cough, wheezing, or hemoptysis. GASTROINTESTINAL: No nausea, vomiting, diarrhea or constipation. GENITOURINARY: No dysuria, frequency, or change in urination. MUSCULOSKELETAL: No joint or muscle swelling or pain. No neck or back pain. SKIN: No rash NEUROLOGIC: No headache, vertigo, loss of consciousness, or change in strength/ sensation. ENDOCRINE: No increased thirst. No abnormal weight change. HEMATOLOGIC/LYMPHATIC: No anemia, easy bleeding, or history of blood clots. ALLERGIC/IMMUNOLOGIC: No hives or skin allergy. <RosalioDeisyjoseph - Last Filed: 08/30/16 07:01> *Physical Exam - Vital Signs Last Vital Signs Temp Pulse Resp BP Pulse Ox 98.1 F 74 18 157/69 100 08/30/16 03:50 08/30/16 03:50 08/30/16 03:50 08/30/16 03:50 08/30/16 03:50 - Physical Exam Comments: 08/30/16 06:36 GENERAL: Awake, alert, and fully oriented, in no acute distress HEAD: No signs of trauma EYES: PERRLA, EOMI, sclera anicteric, conjunctiva clear ENT: Auricles normal inspection, hearing grossly normal, nares patent, oropharynx clear without exudates. Moist mucosa NECK: Normal ROM, supple, no lymphadenopathy, JVD, or masses LUNGS: Breath sounds equal, clear to auscultation bilaterally. No wheezes, and no crackles HEART: Regular rate and rhythm, normal S1 and S2, no murmurs, rubs or gallops ABDOMEN: Soft, nontender, normoactive bowel sounds. No guarding, no rebound. No masses EXTREMITIES: Normal range of motion, no edema. No clubbing or cyanosis. No cords , erythema, or tenderness NEUROLOGICAL: Fine resting tremor. Cranial nerves II through XII grossly intact. Normal speech, normal gait SKIN: Warm, Dry, normal turgor, no rashes or lesions noted. <Rd Santamaria - Last Filed: 08/30/16 07:01> Heart Score/ECG Review - ECG Intrepretation Comment:: 08/30/16 07:01 Vent Rate: 71 bpm IMPRESSION: Normal Sinus rhythm <Rd Santamaria - Last Filed: 08/30/16 07:01> ED Treatment Course - LABORATORY CBC & Chemistry Diagram: 08/30/16 06:30 08/30/16 06:30 - ADDITIONAL ORDERS Additional order review: Laboratory Results 08/30/16 03:49 POC Glucometer [id number] 08/30/16 03:49 POC Glucometer [id number] <Rd Santamaria - Last Filed: 08/30/16 07:01> - LABORATORY CBC & Chemistry Diagram: 08/30/16 06:30 08/30/16 06:30 <Roxie Hughes - Last Filed: 08/30/16 20:34> Medical Decision Making - Medical Decision Making 08/30/16 06:22 First call placed to Dr. Flex Starr at 06:22. Awaiting call back. Case discussed with Dr. Starr at 06:30. <Rd Santamaria - Last Filed: 08/30/16 07:01> - Medical Decision Making 08/30/16 06:21 Pt states that her blood sugar dropped to 70 last night so she came to the ER. EMS brought her in and stated that she has a blood sugar of 40 and that they gave her D10 and it came up to 80 in the ER. SHe states that she takes 14 U of her insulin BID every day and that she has a novopen to use as needed. Yesterday, pt claims that she ate well. She doesn't know why her blood sugar fell. Pt lives with her daughter and she feels fine now. She wants to go home. We will check CBC and Comp chemistry. I will speak to her PMD Ro and discuss her plan. 08/30/16 06:28 Pt was here 6 days ago for a similar episode. At that time, she signed AMA and went home by cab. Today we will check labs. 08/30/16 06:40 Case d/w Dr. Starr and he wants us to admit the patient to observation status as she has been dangerously hypoglycemic twice in a 1 week period. Pt will be admitted. She is in agreement. <Roxie Hughes - Last Filed: 08/30/16 20:34> *DC/Admit/Observation/Transfer - Attestations Scribe Attestion: 08/30/16 06:37 [address]ation prepared by [address] Santamaria, acting as medical services assistant for Roxie Hughes MD. <Rd Santamaria - Last Filed: 08/30/16 07:01> - Discharge Dispostion Admit: Yes <Roxie Hughes - Last Filed: 08/30/16 20:34> Diagnosis at time of Disposition: Hypoglycemia due to insulin
--- NOTE | 2016-08-30 06:24 | PDOC ---
History of Present Illness - General Chief Complaint: Blood Sugar Problem Stated Complaint: HIGH BLOOD SUGAR Time Seen by Provider: 08/30/16 03:50 Past History - Past Medical History Allergies/Adverse Reactions: Allergies Allergy/AdvReac Type Severity Reaction Status Date / Time No Known Drug Allergies Allergy Verified 08/30/16 03:53 Home Medications: Ambulatory Orders Aspirin [ASA -] 81 mg PO DAILY 01/23/16 Clopidogrel Bisulfate [Clopidogrel] 75 mg PO DAILY 01/23/16 Duloxetine HCl [Cymbalta -] 90 mg PO DAILY 01/23/16 Lovastatin [Altoprev] 40 mg PO BID 01/23/16 Insulin Sliding Scale [Novolog Vial Sliding Scale -] 1 vial SQ ACHS units 01/26 Insulin (Novolog 70/30) [Novolog Mix 70/30 Vial -] 32 units SQ BID 07/17/16 Oxycodone HCl/Acetaminophen [Percocet 5-325 mg Tablet] 1 - 2 combo PO Q4H PRN # 9 tablet MDD 4 07/17/16 Primidone [Mysoline] 750 mg PO DAILY 07/17/16 Dextrose Tablet [Glucose Tablet -] 4 gm PO PRN PRN #30 tab.chew 07/27/16 Anemia: No Asthma: No Cancer: Yes (VAGINAL/CERVICAL CANCER- S/P LASAR SURGERY) Cardiac Disorders: Yes (ASHD, TRIPLE BYPASS, S/P CT X1 in 2004,STENT X'S 3) CVA: No COPD: No CHF: No Dementia: No Diabetes: Yes (IDDM) GI Disorders: No Disorders: No HTN: Yes Hypercholesterolemia: Yes Liver Disease: No Suicide Attempt (Hx): No Seizures: No Thyroid Disease: No - Surgical History Abdominal Surgery: No Appendectomy: No Cardiac Surgery: Yes (THREE STENTS 2006) Cholecystectomy: No Lung Surgery: No Neurologic Surgery: No Orthopedic Surgery: Yes (BILATERAL CTR) - Immunization History Td Vaccination: No TDAP Vaccination: No Immunization Up to Date: No - Psycho/Social/Smoking Cessation Hx Anxiety: No Suicidal Ideation: No Smoking Status: Yes Smoking History: Current every day smoker Years of Tobacco Use: 15 Have you smoked in the past 12 months: No Number of Cigarettes Smoked Daily: 4 Cigars Per Day: 10 Information on smoking cessation initiated: No 'Breaking Loose' booklet given: 01/24/16 Hx Alcohol Use: No Drug/Substance Use Hx: No Substance Use Type: None Hx Substance Use Treatment: No *Physical Exam - Vital Signs Last Vital Signs Temp Pulse Resp BP Pulse Ox 98.1 F 74 18 157/69 100 08/30/16 03:50 08/30/16 03:50 08/30/16 03:50 08/30/16 03:50 08/30/16 03:50 ED Treatment Course - ADDITIONAL ORDERS Additional order review: Laboratory Results 08/30/16 03:49 POC Glucometer [id number] 08/30/16 03:49 POC Glucometer [id number] Medical Decision Making - Medical Decision Making 08/30/16 06:21 Pt states that her blood sugar dropped to 70 last night so she came to the ER. EMS brought her in and stated that she has a blood sugar of 40 and that they gave her D10 and it came up to 80 in the ER. SHe states that she takes 14 U of her insulin BID every day and that she has a novopen to use as needed. Yesterday, pt claims that she ate well. She doesn't know why her blood sugar fell. Pt lives with her daughter and she feels fine now. She wants to go home. We will check CBC and Comp chemistry. I will speak to her PMD Ro and discuss her plan.
[2016-08-30] MEDS ORDERED: DEXTROSE 5%-NORMAL SALINE 500 ML IV ONE (06:37)
[2016-08-30 06:49] LABS: BASOPHIL 0.4 % (0-2.0); EOSINOPHIL 2.8 % (0-4.5); MCH 33.1 pg (25.7-33.7); MCHC 33.1 g/dl (32.0-36.0); MEAN CELL VOLUME 100.1 fl (80-96); MEAN PLT VOLUME 8.2 fl (7.5-11.1); PLATELET COUNT 305 K/MM3 (134-434)
[2016-08-30 07:13] LABS: ALBUMIN 3.2 g/dl (3.4-5.0); ANION GAP 8 (8-16); BILIRUBIN,TOTAL 0.3 mg/dL (0.2-1.0); CALCIUM 8.3 mg/dL (8.5-10.1); CO2 28 mmol/L (21-32); CREATININE 0.6 mg/dL (0.55-1.02); GLUCOSE,RANDOM 88 mg/dL (74-106); SGOT/AST 28 U/L (15-37); SGPT/ALT 37 U/L (12-78)
[2016-08-30 07:15] LABS: ALK PHOS 104 U/L (45-117); TOT PROT 6.4 g/dl (6.4-8.2)
--- NOTE | 2016-08-30 09:53 | EKG ---
Test Reason : Blood Pressure : / mmHG Vent. Rate : 071 BPM Atrial Rate : 071 BPM P-R Int : 152 ms QRS Dur : 070 ms QT Int : 396 ms P-R-T Axes : 061 051 050 degrees QTc Int : 430 ms NORMAL SINUS RHYTHM NORMAL ECG WHEN COMPARED WITH ECG OF 24-AUG-2016 22:10, NO SIGNIFICANT CHANGE WAS FOUND Confirmed by MARIAH CONDON MD ([id number]) on 08/30/2016 9:53:45 AM Referred By: Confirmed By:MARIAH CONDON MD
--- NOTE | 2016-08-30 11:07 | HP ---
Admitting History and Physical - Primary Care Physician PCP: Flex Starr - Admission Chief Complaint: unresponsive History of Present Illness: Pt. was BIBEMS for low glucose at home. Pt states that last night before dinner her glucose was 70, eat ice cream and sugar became 170; then gave her night insuline and had dinner, later she fell a sleep. She woke up with EMS around her. Pt signs of infection over the last few days.. 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 Hypoglicemia) - Past Surgical History Past Surgical History: Yes: CABG (3 stents) - Smoking History Smoking history: Current every day smoker Have you smoked in the past 12 months: No Aproximately how many cigarettes per day: 4 - Alcohol/Substance Use Hx Alcohol Use: No - Social History ADL: Independent History of Recent Travel: No Home Medications - Allergies Allergies/Adverse Reactions: Allergies Allergy/AdvReac Type Severity Reaction Status Date / Time No Known Drug Allergies Allergy Verified 08/30/16 03:53 - Home Medications Home Medications: Ambulatory Orders Aspirin [ASA -] 81 mg PO DAILY 01/23/16 Clopidogrel Bisulfate [Clopidogrel] 75 mg PO DAILY 01/23/16 Duloxetine HCl [Cymbalta -] 90 mg PO DAILY 01/23/16 Lovastatin [Altoprev] 40 mg PO BID 01/23/16 Insulin Sliding Scale [Novolog Vial Sliding Scale -] 1 vial SQ ACHS units 01/26 Insulin (Novolog 70/30) [Novolog Mix 70/30 Vial -] 32 units SQ AM 07/17/16 Primidone [Mysoline] 750 mg PO DAILY 07/17/16 Insulin (Novolog 70/30) [Novolog Mix 70/30 Flexpen -] 12 units SQ HS 08/30/16 Family Disease History - Family Disease History Family Disease History: Heart Disease: Mother, Respiratory: Sister (asthma), Other: Father (volvulus) Review of Systems - Review of Systems Constitutional: denies: Chills, Fever Eyes: denies: Blind Spots, Blurred Vision, Double Vision HENT: denies: Difficult Swallowing, Ear Discharge, Nasal Congestion, Throat Pain Neck: denies: Decreased ROM, Stiffness Cardiovascular: denies: Chest Pain, Edema, Palpitations, Shortness of Breath Respiratory: denies: Cough, SOB, SOB on Exertion, Wheezing Gastrointestinal: denies: Abdominal Pain, Diarrhea, Nausea, Vomiting Genitourinary: denies: Burning, Discharge, Dysuria, Flank Pain, Frequency, Incontinence Musculoskeletal: denies: Back Pain, Muscle Pain Integumentary: denies: Blister, Bruising, Eczema, Rash Neurological: denies: Change in Speech, Confusion, Dizziness, Incoordination, Unsteady Gait, Weakness Endocrine: denies: Excessive Sweating, Intolerance to Cold Hematology/Lymphatic: denies: Easily Bruised, Excessive Bleeding Psychiatric: denies: Anxiety, Depression Physical Examination Vital Signs: Vital Signs Temperature 98.4 F 08/30/16 11:04 Pulse Rate 80 08/30/16 11:04 Respiratory Rate 16 08/30/16 11:04 Blood Pressure 137/57 08/30/16 11:04 O2 Sat by Pulse Oximetry (%) 95 08/30/16 11:04 Constitutional: Yes: No Distress, Calm Eyes: Yes: Conjunctiva Clear, EOM Intact, PERRL HENT: Yes: Normocephalic. No: Epistaxis, Rhinnorhea Neck: Yes: Trachea Midline. No: Lymphadenopathy Cardiovascular: Yes: Regular Rate and Rhythm, S1, S2 Respiratory: Yes: Regular, CTA Bilaterally. No: Rales Gastrointestinal: Yes: Normal Bowel Sounds, Soft. No: Palpable Mass, Tenderness ...Rectal Exam: Yes: Deferred Breast(s): Yes: Other (deferred) Musculoskeletal: No: Back Pain, Joint Stiffness, Joint Swelling, Muscle Pain Extremities: No: Cold, Cool Edema: No Integumentary: No: Bruising, Erythema Neurological: Yes: Oriented, Tremors (chronic), Other (motor and sensory examination is symmetric in UE/ LE/ face) Psychiatric: Yes: Alert, Oriented Labs: reviewed Imaging - Results Chest X-ray: Report Reviewed Problem List - Problems (1) Hypoglycemia Code(s): E16.2 - HYPOGLYCEMIA, UNSPECIFIED (2) Diabetes Code(s): E11.9 - TYPE 2 DIABETES MELLITUS WITHOUT COMPLICATIONS Qualifiers: Diabetes mellitus type: type 2 Diabetes mellitus complication status: with hypoglycemia Diabetes mellitus complication detail: without coma (3) CAD (coronary artery disease) Code(s): I25.10 - ATHSCL HEART DISEASE OF [place] CORONARY ARTERY W/O ANG PCTRS (4) COPD (chronic obstructive pulmonary disease) Code(s): J44.9 - CHRONIC OBSTRUCTIVE PULMONARY DISEASE, UNSPECIFIED (5) History of [place] (myocardial infarction) Code(s): I25.2 - OLD MYOCARDIAL INFARCTION Assessment/Plan Monitor BGM Insuline 70/30 on hold resume other meds
[2016-08-30 11:53] LABS: URINE APPEARANCE CLEAR; URINE BILIRUBIN NEGATIVE (NEGATIVE); URINE COLOR STRAW; URINE GLUCOSE (UA) 3+ (NEGATIVE); URINE KETONE NEGATIVE (NEGATIVE); URINE LEUK ESTERASE NEGATIVE (NEGATIVE); URINE NITRITE NEGATIVE (NEGATIVE); URINE PROTEIN NEGATIVE (NEGATIVE); URINE UROBILINOGEN NEGATIVE E.U./dl (0.2-1.0)
[2016-08-30 11:55] LABS: URINE BLOOD 1+ (NEGATIVE)
[2016-08-30 11:56] LABS: URINE MUCUS RARE; URINE RBC 1 /hpf (0-3); URINE WBC 1 /hpf (3-5)
[2016-08-30 14:08] VITALS: BMI 22.6
[2016-08-30] MEDS: ASPIRIN 81 MG CHEWABLE TABLETS PO SCH (14:21)
[2016-08-30] MEDS: CLOPIDOGREL BISULFATE 75 MG TABLET (FP) PO SCH (14:21)
[2016-08-30] MEDS: DULoxetine HCL 30 MG CAPSULE.DR (FP) PO SCH (14:21)
[2016-08-30] MEDS: INSULIN SLIDING SCALE (NOVOLOG) 1 VIAL SQ SCH ×2 (17:27→21:11)
[2016-08-30] MEDS ORDERED: INSULIN (NOVOLOG MIX 70/30) 100 UNITS/ML MDV SQ SCH (18:00)
[2016-08-30] MEDS ORDERED: INSULIN (NOVOLOG) ASPART 100 UNITS/ML 10ML VIAL SQ ONE (18:00)
[2016-08-30] MEDS ORDERED: INSULIN (NOVOLOG) ASPART 100 UNITS/ML 10ML VIAL ONE (21:10)
[2016-08-30] MEDS: ATORVASTATIN CA 10 MG TABLET (FP) PO SCH (21:11)
[2016-08-30] MEDS ORDERED: LOVASTATIN 40 MG PO SCH (22:00)
[2016-08-30] MEDS ORDERED: DEXTROSE 50%-WATER 50 ML DISP.SYRIN ONE (23:34)
[2016-08-30] MEDS ORDERED: DEXTROSE 50%-WATER 50 ML DISP.SYRIN IVPUSH ONE (23:45)
[2016-08-31] MEDS: DEXTROSE 5%-NORMAL SALINE 1,000 ML IV SCH ×2 (02:25→18:02)
[2016-08-31] MEDS ORDERED: DEXTROSE 50%-WATER 50 ML VIAL IVPUSH PRN (03:00)
[2016-08-31] MEDS ORDERED: DEXTROSE 50%-WATER 50 ML DISP.SYRIN IVPUSH PRN (03:00)
[2016-08-31] MEDS: INSULIN SLIDING SCALE (NOVOLOG) 1 VIAL SQ SCH ×5 (06:17→21:20)
[2016-08-31] MEDS ORDERED: INSULIN (NOVOLOG) ASPART 100 UNITS/ML 10ML VIAL ONE ×3 (06:17→21:20)
[2016-08-31] MEDS ORDERED: INSULIN (NOVOLOG MIX 70/30) 100 UNITS/ML MDV SQ SCH (07:00)
[2016-08-31 07:49] LABS: MCH 33.8 pg (25.7-33.7); MCHC 33.7 g/dl (32.0-36.0); MEAN CELL VOLUME 100.1 fl (80-96); MEAN PLT VOLUME 7.9 fl (7.5-11.1); PLATELET COUNT 252 K/MM3 (134-434); RDW 12.9 % (11.6-15.6); WHITE BLOOD COUNT 8.2 K/mm3 (4.0-10.0)
[2016-08-31 08:18] LABS: ALBUMIN 2.8 g/dl (3.4-5.0); ANION GAP 7 (8-16); BILIRUBIN,TOTAL 0.3 mg/dL (0.2-1.0); CALCIUM 8.3 mg/dL (8.5-10.1); CO2 27 mmol/L (21-32); CREATININE 0.6 mg/dL (0.55-1.02); GLUCOSE,RANDOM 224 mg/dL (74-106); SGOT/AST 18 U/L (15-37); SGPT/ALT 30 U/L (12-78); TOT PROT 5.9 g/dl (6.4-8.2)
[2016-08-31 08:19] LABS: ALK PHOS 95 U/L (45-117)
[2016-08-31] MEDS ORDERED: PT OWN MED DRAWER 7, Y5N ONE (09:36)
[2016-08-31] MEDS: PRIMIDONE 250 MG TABLET PO SCH (09:39)
[2016-08-31] MEDS: ASPIRIN 81 MG CHEWABLE TABLETS PO SCH (09:39)
[2016-08-31] MEDS: DULoxetine HCL 30 MG CAPSULE.DR (FP) PO SCH (09:39)
[2016-08-31] MEDS: CLOPIDOGREL BISULFATE 75 MG TABLET (FP) PO SCH (09:39)
[2016-08-31] MEDS ORDERED: ARTIFICIAL TEARS (POLYVINYL ALCOHOL 1.4%) OPTH DROPS OU PRN (19:05)
--- NOTE | 2016-08-31 19:07 | PN ---
Progress Note, Physician History of Present Illness: Pt. w/o fever, chills, sore throat, cough, diarrhea, frequency, dysuria - Current Medication List Current Medications: Active Medications Artificial Tears (Artificial Tears) 1 drop OU QID PRN PRN Reason: DRY EYES Aspirin (Asa -) 81 mg PO DAILY [facility] Last Admin: 08/31/16 09:39 Dose: 81 mg Atorvastatin Calcium (Lipitor -) 10 mg PO HS [facility] Last Admin: 08/30/16 21:11 Dose: 10 mg Clopidogrel Bisulfate (Plavix -) 75 mg PO DAILY [facility] Last Admin: 08/31/16 09:39 Dose: 75 mg Dextrose (D50w (Syringe) -) 50 ml IVPUSH Q1H PRN PRN Reason: FOR BGM < 50 Dextrose (D50w (Vial) -) 25 ml IVPUSH Q1H PRN PRN Reason: FOR BGM 50-69 Duloxetine HCl (Cymbalta -) 90 mg PO DAILY [facility] Last Admin: 08/31/16 09:39 Dose: 90 mg Dextrose/Sodium Chloride (D5-Ns -) 1,000 mls @ 65 mls/hr IV ASDIR [facility] Last Admin: 08/31/16 18:02 Dose: 65 mls/hr Insulin Aspart (Novolog Vial Sliding Scale -) 1 vial SQ ACHS [facility] PRN Reason: Protocol Last Admin: 08/31/16 16:34 Dose: Not Given Insulin Aspart (Novolog Mix 70/30 Vial) 16 units SQ ACBK [facility] Primidone (Mysoline -) 750 mg PO DAILY [facility] Last Admin: 08/31/16 09:39 Dose: 750 mg - Objective Vital Signs: Vital Signs Temperature 98.4 F 08/31/16 18:00 Pulse Rate 77 08/31/16 18:00 Respiratory Rate 19 08/31/16 18:00 Blood Pressure 139/70 08/31/16 18:00 O2 Sat by Pulse Oximetry (%) 97 08/31/16 14:00 Constitutional: Yes: No Distress, Calm Cardiovascular: Yes: Regular Rate and Rhythm, S1, S2 Respiratory: Yes: Regular, CTA Bilaterally. No: Rales Gastrointestinal: Yes: Normal Bowel Sounds, Soft. No: Tenderness, Tenderness, Rebound Edema: No Neurological: Yes: Alert, Oriented (X 3) Labs: CBC, BMP 08/31/16 06:45 08/31/16 06:45 Problem List - Problems (1) Hypoglycemia Assessment/Plan: [place] source. I know about last night events (as I coordinated care) Code(s): E16.2 - HYPOGLYCEMIA, UNSPECIFIED (2) Diabetes Code(s): E11.9 - TYPE 2 DIABETES MELLITUS WITHOUT COMPLICATIONS Qualifiers: Diabetes mellitus type: type 2 Diabetes mellitus complication status: with hypoglycemia Diabetes mellitus complication detail: without coma (3) CAD (coronary artery disease) Code(s): I25.10 - ATHSCL HEART DISEASE OF [place] CORONARY ARTERY W/O ANG PCTRS (4) COPD (chronic obstructive pulmonary disease) Code(s): J44.9 - CHRONIC OBSTRUCTIVE PULMONARY DISEASE, UNSPECIFIED (5) History of [place] (myocardial infarction) Code(s): I25.2 - OLD MYOCARDIAL INFARCTION Assessment/Plan Monitor BGM Trial of Insuline 70/30, half dose only in AM Continue other medications
[2016-08-31] MEDS: ATORVASTATIN CA 10 MG TABLET (FP) PO SCH (21:20)
[2016-09-01] MEDS: DEXTROSE 5%-NORMAL SALINE 1,000 ML IV SCH ×3 (02:15→21:24)
[2016-09-01] MEDS: INSULIN SLIDING SCALE (NOVOLOG) 1 VIAL SQ SCH ×3 (06:39→21:24)
[2016-09-01] MEDS: INSULIN (NOVOLOG MIX 70/30) 100 UNITS/ML MDV SQ SCH (06:40)
[2016-09-01 08:07] LABS: MCH 34.1 pg (25.7-33.7); MCHC 33.8 g/dl (32.0-36.0); MEAN CELL VOLUME 100.8 fl (80-96); MEAN PLT VOLUME 8.1 fl (7.5-11.1); PLATELET COUNT 261 K/MM3 (134-434); RDW 12.9 % (11.6-15.6); WHITE BLOOD COUNT 8.7 K/mm3 (4.0-10.0)
[2016-09-01 08:31] LABS: ALBUMIN 2.9 g/dl (3.4-5.0); ANION GAP 8 (8-16); CALCIUM 8.6 mg/dL (8.5-10.1); CO2 27 mmol/L (21-32); CREATININE 0.8 mg/dL (0.55-1.02); GLUCOSE,RANDOM 273 mg/dL (74-106); SGOT/AST 17 U/L (15-37); SGPT/ALT 29 U/L (12-78)
[2016-09-01 08:33] LABS: ALK PHOS 95 U/L (45-117); BILIRUBIN,TOTAL 0.4 mg/dL (0.2-1.0); TOT PROT 5.7 g/dl (6.4-8.2)
[2016-09-01] MEDS ORDERED: PT OWN MED DRAWER 7, Y5N ONE (11:00)
[2016-09-01] MEDS ORDERED: INSULIN (NOVOLOG) ASPART 100 UNITS/ML 10ML VIAL ONE ×2 (11:00→21:23)
[2016-09-01] MEDS: DULoxetine HCL 30 MG CAPSULE.DR (FP) PO SCH (11:08)
[2016-09-01] MEDS: ASPIRIN 81 MG CHEWABLE TABLETS PO SCH (11:08)
[2016-09-01] MEDS: CLOPIDOGREL BISULFATE 75 MG TABLET (FP) PO SCH (11:08)
[2016-09-01] MEDS: PRIMIDONE 250 MG TABLET PO SCH (11:09)
[2016-09-01] MEDS: ATORVASTATIN CA 10 MG TABLET (FP) PO SCH (21:24)
--- NOTE | 2016-09-01 21:35 | PN ---
Progress Note, Physician History of Present Illness: Pt. w/o fever, chills, sore throat, cough, diarrhea, frequency, dysuria, syncope , pre-syncope. - Current Medication List Current Medications: Active Medications Artificial Tears (Artificial Tears) 1 drop OU QID PRN PRN Reason: DRY EYES Aspirin (Asa -) 81 mg PO DAILY [facility] Last Admin: 09/01/16 11:08 Dose: 81 mg Atorvastatin Calcium (Lipitor -) 10 mg PO HS [facility] Last Admin: 09/01/16 21:24 Dose: 10 mg Clopidogrel Bisulfate (Plavix -) 75 mg PO DAILY [facility] Last Admin: 09/01/16 11:08 Dose: 75 mg Dextrose (D50w (Syringe) -) 50 ml IVPUSH Q1H PRN PRN Reason: FOR BGM < 50 Dextrose (D50w (Vial) -) 25 ml IVPUSH Q1H PRN PRN Reason: FOR BGM 50-69 Duloxetine HCl (Cymbalta -) 90 mg PO DAILY [facility] Last Admin: 09/01/16 11:08 Dose: 90 mg Dextrose/Sodium Chloride (D5-Ns -) 1,000 mls @ 65 mls/hr IV ASDIR [facility] Last Admin: 09/01/16 21:24 Dose: 65 mls/hr Insulin Aspart (Novolog Vial Sliding Scale -) 1 vial SQ ACHS [facility] PRN Reason: Protocol Last Admin: 09/01/16 21:24 Dose: 10 units Insulin Aspart (Novolog Mix 70/30 Vial) 16 units SQ ACBK [facility] Last Admin: 09/01/16 06:40 Dose: 16 units Primidone (Mysoline -) 750 mg PO DAILY [facility] Last Admin: 09/01/16 11:09 Dose: 750 mg - Objective Vital Signs: Vital Signs Temperature 98.3 F 09/01/16 14:47 Pulse Rate 68 09/01/16 14:47 Respiratory Rate 20 09/01/16 09:00 Blood Pressure 127/54 09/01/16 14:47 O2 Sat by Pulse Oximetry (%) 97 09/01/16 09:00 Constitutional: Yes: No Distress, Calm Cardiovascular: Yes: Regular Rate and Rhythm, S1, S2 Respiratory: Yes: Regular, Other (coarse BS). No: Rales Gastrointestinal: Yes: Normal Bowel Sounds, Soft. No: Palpable Mass, Tenderness Edema: No Neurological: Yes: Alert, Oriented Labs: CBC, BMP 09/01/16 07:20 09/01/16 07:20 Problem List - Problems (1) Hypoglycemia Code(s): E16.2 - HYPOGLYCEMIA, UNSPECIFIED (2) Diabetes Code(s): E11.9 - TYPE 2 DIABETES MELLITUS WITHOUT COMPLICATIONS Qualifiers: Diabetes mellitus type: type 2 Diabetes mellitus complication status: with hypoglycemia Diabetes mellitus complication detail: without coma (3) CAD (coronary artery disease) Code(s): I25.10 - ATHSCL HEART DISEASE OF [place] CORONARY ARTERY W/O ANG PCTRS (4) COPD (chronic obstructive pulmonary disease) Code(s): J44.9 - CHRONIC OBSTRUCTIVE PULMONARY DISEASE, UNSPECIFIED (5) History of [place] (myocardial infarction) Code(s): I25.2 - OLD MYOCARDIAL INFARCTION Assessment/Plan Monitor BGM Trial of Insuline 70/30, half dose only (16 units) in AM; to monitor BGM early AM- to r/o hypoglicemia. was d/w pt.'s nurse. Continue other medications
[2016-09-02] MEDS: INSULIN SLIDING SCALE (NOVOLOG) 1 VIAL SQ SCH ×2 (06:05→12:00)
[2016-09-02] MEDS: INSULIN (NOVOLOG MIX 70/30) 100 UNITS/ML MDV SQ SCH (06:19)
[2016-09-02 08:12] LABS: ANION GAP 5 (8-16); CALCIUM 8.2 mg/dL (8.5-10.1); CO2 29 mmol/L (21-32); CREATININE 0.5 mg/dL (0.55-1.02); GLUCOSE,RANDOM 137 mg/dL (74-106)
[2016-09-02] MEDS ORDERED: PT OWN MED DRAWER 7, Y5N ONE (09:55)
[2016-09-02] MEDS: ASPIRIN 81 MG CHEWABLE TABLETS PO SCH (09:57)
[2016-09-02] MEDS: CLOPIDOGREL BISULFATE 75 MG TABLET (FP) PO SCH (09:57)
[2016-09-02] MEDS: DULoxetine HCL 30 MG CAPSULE.DR (FP) PO SCH (09:57)
[2016-09-02] MEDS: PRIMIDONE 250 MG TABLET PO SCH (09:58)
[2016-09-02 14:08] VITALS: BP 114/59; PULSE 72; TEMP 98.2
--- NOTE | 2016-09-02 14:56 | DS ---
Physical Examination Vital Signs: Vital Signs Temperature 98.2 F 09/02/16 14:07 Pulse Rate 72 09/02/16 14:07 Respiratory Rate 20 09/02/16 05:49 Blood Pressure 114/59 09/02/16 14:07 O2 Sat by Pulse Oximetry (%) 96 09/02/16 00:28 Findings/Remarks: Pt w/o weakness, syncope, pre-syncope, fever, chills, sore throat, nasal DC, cough, SOB, abd pain, dysuria, frequency. Constitutional: Yes: No Distress, Calm Cardiovascular: Yes: Regular Rate and Rhythm, S1, S2 Respiratory: Yes: Regular, CTA Bilaterally, Rales Gastrointestinal: Yes: Normal Bowel Sounds, Soft. No: Tenderness Edema: No Labs: CBC, BMP 09/01/16 07:20 09/02/16 06:35 Discharge Summary Reason For Visit: HYPOGLYCEMIA DUE TO INSULIN Current Active Problems Asthma (Acute) CAD (coronary artery disease) (Acute) Diabetic autonomic neuropathy associated with diabetes mellitus due to underlying condition (Acute) Elevated LFTs (Acute) Fever (Acute) Hypoglycemia due to insulin (Acute) Lethargy (Acute) Procedures: Principal: CXR Hospital Course: Pt was BIBEMS with severe hypoglicemia. Pt w/o source for hypoglicemia (blood work, urine test, CXR were negative for infection). Pt's insulin dose was changed. I spoke with pt about managing her BGM at home, change in insulin dose , the need for better monitoring of BGM at night for the next several nights, keeping a written record of BGM values and return them at next office visits. Pt agrees with the plan and to call me at any time if needed. Pt to be DC'ed home today. Condition: Good - Instructions Diet, Activity, Other Instructions: Resume ADA, low Cholesterol diet Keep BGM records all the time and return them at office visits. Check BGM at 10 or 11 PM and 2 or 3 AM untill next office visit. Call me any time if nedded. Return for office visit or Thursday (call for appointment). Referrals: Felx Starr MD [Primary Care Provider] - ( or Thursday- call for appointment) Kel Darden MD [Staff Physician] - (within a week- call for appointment) Disposition: HOME - Home Medications Comprehensive Discharge Medication List: Ambulatory Orders Aspirin [ASA -] 81 mg PO DAILY 01/23/16 Clopidogrel Bisulfate [Clopidogrel] 75 mg PO DAILY 01/23/16 Duloxetine HCl [Cymbalta -] 90 mg PO DAILY 01/23/16 Lovastatin [Altoprev] 40 mg PO BID 01/23/16 Insulin Sliding Scale [Novolog Vial Sliding Scale -] 1 vial SQ ACHS units 01/26 Insulin (Novolog 70/30) [Novolog Mix 70/30 Vial -] 32 units SQ AM 07/17/16 Primidone [Mysoline] 750 mg PO DAILY 07/17/16 Insulin (Novolog 70/30) [Novolog Mix 70/30 Flexpen -] 12 units SQ HS 08/30/16
== END 2016-09-02 18:46 | disposition home or self-care (01) ==
LOC: JER 03:44 → JERBED 06:38 → UNDOADMOB 06:42 → J6S 13:48
PROVIDERS: ADMIT Specialist; ATTEND Specialist
PROC: 3E0337Z Introduction of Electrolytic and Water Balance Substance into Peripheral Vein, Percutaneous Approach (ICD-10-PCS; principal; 2016-08-30)
PROC: 3E033VG Introduction of Insulin into Peripheral Vein, Percutaneous Approach (ICD-10-PCS; 2016-08-30)
DX: E11.649 Type 2 diabetes mellitus with hypoglycemia without coma (principal); E11.40 Type 2 diabetes mellitus with diabetic neuropathy, unspecified; Z79.4 Long term (current) use of insulin; I10 Essential (primary) hypertension; I25.2 Old myocardial infarction; I25.10 Atherosclerotic heart disease of native coronary artery without angina pectoris; E78.5 Hyperlipidemia, unspecified; G62.9 Polyneuropathy, unspecified; G25.0 Essential tremor; Z85.41 Personal history of malignant neoplasm of cervix uteri; Z95.1 Presence of aortocoronary bypass graft; Z95.5 Presence of coronary angioplasty implant and graft; Z79.82 Long term (current) use of aspirin; J45.909 Unspecified asthma, uncomplicated
CPT/HCPCS: 36415; 71010-TC; 80048; 80053; 81003; 81015; 82947; 85025; 85027; 93005; 93010; 99283-25; G0378

== ENCOUNTER 2017-01-16 15:26 | Inpatient (IN) | payer OTHER ==
[2017-01-16] MEDS ORDERED: morphine CARPU-JECT 4 MG/1 ML DISP.SYRIN IVPUSH ONE ×2 (16:21→20:51)
--- NOTE | 2017-01-16 16:21 | PDOC ---
Attending Attestation - Resident Resident Name: FragosoShekhar - ED Attending Attestation I have performed the following: I have examined & evaluated the patient, The case was reviewed & discussed with the resident, I agree w/resident's findings & plan, Exceptions are as noted - HPI HPI: 01/16/17 16:23 Chief complaint: Hip pain History of present illness: This is a 56-year-old woman with past medical history significant for essential tremor, coronary artery disease, [place] with stents, COPD, diabetes, presents to the emergency department after a fall on Thursday. Patient states she was bending over trying to pick something up fell landed on her left hip adamantly denies any head trauma it was no loss of consciousness no prodrome of dizziness lightheadedness chest pain shortness of breath prior to the fall. She has had significant difficulty ambulating since the fall and has been unable to get out of bed since the fall. - Physicial Exam PE: 01/16/17 16:23 Vitals: Triage Vital signs reviewed General Appearance: no acute distress, well nourished well developed, Head: Atraumatic, Eyes: Pupils equal reactive round, extraocular movement intact Neck: Supple;No Nucal rigidity Chest Wall: Nontender Cardiac: Regular rate and rhythym, no murmurs, no rubs, no gallops, Lungs: Clear to auscultation bilateral, good air movement bilaterally, Abdomen: Soft, non distended, normal bowel sounds, non tender to palpation Extremities: Tenderness to palpation over the left hip, neurovascularly intact distally Skin: Warm and dry, no rashes or lesions, no rash, no petechiae Neuro:Cranial Nerves 2-12 grossly intact, Strength intact to all extremities, Sensation intact to all extremities, Psych: normal mood, normal affect - Medical Decision Making 01/17/17 00:57 Mild distress patient with fall and left hip pain. X-ray demonstrates a left femoral neck fracture. Patient's primary care provider aware. He will consult orthopedics. Patient given morphine for pain and admitted further management.
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
[2017-01-16] MEDS ORDERED: morphine SULFATE 4 MG/ML VIAL ONE ×2 (16:48→20:54)
[2017-01-16 16:54] LABS: BASOPHIL 0.7 % (0-2.0); EOSINOPHIL 1.9 % (0-4.5); MCH 33.2 pg (25.7-33.7); MCHC 33.3 g/dl (32.0-36.0); MEAN CELL VOLUME 99.8 fl (80-96); MEAN PLT VOLUME 8.3 fl (7.5-11.1); NEUTROPHILS 79.1 % (42.8-82.8); PLATELET COUNT 313 K/MM3 (134-434); RDW 13.7 % (11.6-15.6)
[2017-01-16 17:08] LABS: INR 1.08 (0.82-1.09); PROTHROMBIN TIME (PATIENT) 12.2 SEC (9.98-11.88)
[2017-01-16 17:10] LABS: ACTIVATED PTT 26.1 SECONDS (26.9-34.4)
[2017-01-16 17:47] LABS: ALK PHOS 117 U/L (45-117); ANION GAP 10 (8-16); BILIRUBIN,TOTAL 0.4 mg/dL (0.2-1.0); CALCIUM 8.3 mg/dL (8.5-10.1); CO2 24 mmol/L (21-32); CREATININE 0.6 mg/dL (0.55-1.02); GLUCOSE,RANDOM 87 mg/dL (74-106); SGOT/AST 12 U/L (15-37); SGPT/ALT 20 U/L (12-78); TOT PROT 6.6 g/dl (6.4-8.2)
[2017-01-16] MEDS ORDERED: HEPARIN NA (PORCINE) 5,000 UNITS/ML 1ML VIAL SQ SCH (22:00)
[2017-01-16] MEDS ORDERED: INSULIN SLIDING SCALE (NOVOLOG) 1 VIAL SQ SCH (22:00)
[2017-01-16] MEDS ORDERED: DEXTROSE 50%-WATER 25 GM/50 ML DISP.SYRIN ONE (22:08)
[2017-01-16] MEDS: ATORVASTATIN CA 20 MG TABLET (FP) PO SCH (22:18)
[2017-01-16] MEDS ORDERED: DEXTROSE 5%-NORMAL SALINE 1,000 ML IV SCH (22:30)
[2017-01-16 23:49] VITALS: BMI 22.3
[2017-01-17] MEDS: INSULIN SLIDING SCALE (NOVOLOG) 1 VIAL SQ SCH ×5 (00:55→22:06)
--- NOTE | 2017-01-17 00:58 | HP ---
Admitting History and Physical - Primary Care Physician PCP: Flex Starr - Admission Chief Complaint: left hip pain History of Present Illness: I saw patient in ER ( after her hip XR, on 01/16/2017, but her disposition in the computer was not yet "admitted" at that time and I couldn't start the note) . Pt states that fell 2 days ago, at home, while bending forward; she states that lost her balance and fell on her left hip. Today I spoke with patient ( she called my office requesting refill for Insulin) and I recommended to her to come to ER for evaluation of fall, especially that on the phone she seems confused about her insulin dose (was asking her daughter about the dose and time of administration). Pt states that didn't hit her head and she even manage to walk on her left leg (with pain). 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 Hypoglicemia) - Past Surgical History Past Surgical History: Yes: CABG (3 stents) Additional Past Surgical History: Left leg surgery, after fall. - Smoking History Smoking history: Current every day smoker (5-10 ciggarets/day) Have you smoked in the past 12 months: No Aproximately how many cigarettes per day: 4 - Alcohol/Substance Use Hx Alcohol Use: No - Social History ADL: Independent History of Recent Travel: No Home Medications - Allergies Allergies/Adverse Reactions: Allergies Allergy/AdvReac Type Severity Reaction Status Date / Time No Known Drug Allergies Allergy Verified 01/16/17 16:18 - Home Medications Home Medications: Ambulatory Orders Aspirin [ASA -] 81 mg PO DAILY 01/23/16 Clopidogrel Bisulfate [Clopidogrel] 75 mg PO DAILY 01/23/16 Duloxetine HCl [Cymbalta -] 90 mg PO DAILY 01/23/16 Lovastatin [Altoprev] 40 mg PO BID 01/23/16 Primidone [Mysoline] 750 mg PO DAILY 07/17/16 Insulin (Novolog 70/30) [Novolog Mix 70/30 Vial -] 16 units SQ ACBK #1 vial NS MDD 1 09/02/16 Insulin Sliding Scale [Novolog Vial Sliding Scale -] 1 vial SQ ACHS units 09/02 Family Disease History - Family Disease History Family Disease History: Heart Disease: Mother, Respiratory: Sister (asthma), Other: Father (volvulus) Review of Systems Findings/Remarks: No head trauma. - Review of Systems Constitutional: denies: Chills, Fever Eyes: denies: Blind Spots, Blurred Vision, Double Vision HENT: denies: Ear Discharge, Ear Pain, Nasal Congestion, Throat Pain Neck: denies: Pain on Movement, Stiffness, Tenderness Cardiovascular: denies: Chest Pain, Edema, Palpitations, Shortness of Breath Respiratory: denies: Cough, SOB, SOB on Exertion, Wheezing Gastrointestinal: denies: Abdominal Pain, Diarrhea, Nausea, Vomiting Genitourinary: denies: Burning, Discharge, Dysuria, Flank Pain, Frequency Musculoskeletal: reports: Extremity Pain (left hip pain with walking). denies: Back Pain, Joint Swelling Integumentary: denies: Bruising, Rash Neurological: denies: Change in LOC, Change in Speech, Confusion, Dizziness Endocrine: denies: Excessive Sweating, Intolerance to Cold Hematology/Lymphatic: denies: Easily Bruised, Excessive Bleeding Psychiatric: denies: Anxiety, Depression Physical Examination Vital Signs: Vital Signs Temperature 98.7 F 01/16/17 19:37 Pulse Rate 87 01/16/17 20:50 Respiratory Rate 20 01/16/17 23:53 Blood Pressure 139/60 01/16/17 20:50 O2 Sat by Pulse Oximetry (%) 95 01/16/17 23:53 Constitutional: Yes: No Distress, Calm, Other (resting tremor- old) Eyes: Yes: Conjunctiva Clear, EOM Intact, PERRL HENT: No: Drooling, Epistaxis, Pharyngeal Erythema, Rhinnorhea Neck: Yes: Trachea Midline. No: Lymphadenopathy Cardiovascular: Yes: Regular Rate and Rhythm, S1, S2 Respiratory: Yes: Regular, CTA Bilaterally, Other (coarse bilat) Gastrointestinal: Yes: Normal Bowel Sounds, Soft. No: Tenderness ...Rectal Exam: Yes: Deferred Breast(s): Yes: Other (deferred) Musculoskeletal: Yes: Muscle Weakness (of left leg while trying to lifting it up in the bed.). No: Joint Stiffness, Joint Swelling Extremities: No: Cold, Cool Edema: No Neurological: Yes: Alert, Oriented, Other (motor and sensory is symmetric in UE / LE/ face except no motor in left leg-secondary to pain.) Psychiatric: Yes: Alert, Oriented Labs: reviewed. Imaging - Results X-ray: Image Reviewed (My interpretention: left neck femural fracture) Problem List - Problems (1) Closed left hip fracture Code(s): S72.002A - FRACTURE OF UNSP PART OF NECK OF LEFT FEMUR, INIT (2) CAD (coronary artery disease) Code(s): I25.10 - ATHSCL HEART DISEASE OF [place] CORONARY ARTERY W/O ANG PCTRS (3) Diabetes Code(s): E11.9 - TYPE 2 DIABETES MELLITUS WITHOUT COMPLICATIONS Qualifiers: Diabetes mellitus type: type 2 Diabetes mellitus complication status: with hypoglycemia Diabetes mellitus complication detail: without coma Assessment/Plan Pain control Ortho consult cardio consult AM labs
[2017-01-17] MEDS ORDERED: INSULIN (NOVOLOG) ASPART 100 UNITS/ML 10ML VIAL SQ ONE ×2 (01:15→02:30)
[2017-01-17] MEDS: morphine SULFATE 4 MG/ML VIAL IVPUSH PRN ×3 (02:19→19:09)
[2017-01-17] MEDS: PRIMIDONE 250 MG TABLET PO SCH ×3 (06:37→22:05)
--- NOTE | 2017-01-17 07:02 | CON.CARD ---
Consult Consult Specialty:: Cardiology for Dr. Mancia Referred by:: Dr. Starr Reason for Consultation:: Preop cardiac evaluation for likely hip surgery - History of Present Illness Chief Complaint: L hip pain History of Present Illness: 56 year old woman with a history of HTN, HLD, DMII, multivessel CAD s/p MARGARITO x 3 2005 LAD/RCA/LCx, mult episodes of hypoglycemia in the past admitted with a L hip fracture planned for likely surgery. Pt was seen and examined today in nad. States she has significant pain on and off from her hip fracture. Denies any chest pain or sob episodes recently. states that prior to her injury she would walk a lot without limitation to her exercise tolerance and without chest pain or sob either with rest or with exertion. Her last nuclear stress test was 2013 and showed no ischemia and last echo 04/2016 was reportedly overall normal. No palpitations, pnd, orthopnea, LE edema. no syncope or near syncope. 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 Hypoglicemia) Additional Medical History: neuropathy, tremors - Past Surgical History Past Surgical History: Yes: Stent - Alcohol/Substance Use Hx Alcohol Use: No - Smoking History Smoking history: Current every day smoker Have you smoked in the past 12 months: No Aproximately how many cigarettes per day: 4 - Social History Usual Living Arrangement: With Child ADL: Independent History of Recent Travel: No Home Medications - Allergies Allergies/Adverse Reactions: Allergies Allergy/AdvReac Type Severity Reaction Status Date / Time No Known Drug Allergies Allergy Verified 01/16/17 16:18 - Home Medications Home Medications: Ambulatory Orders Aspirin [ASA -] 81 mg PO DAILY 01/23/16 Clopidogrel Bisulfate [Clopidogrel] 75 mg PO DAILY 01/23/16 Duloxetine HCl [Cymbalta -] 90 mg PO DAILY 01/23/16 Lovastatin [Altoprev] 40 mg PO BID 01/23/16 Primidone [Mysoline] 750 mg PO DAILY 07/17/16 Insulin (Novolog 70/30) [Novolog Mix 70/30 Vial -] 16 units SQ ACBK #1 vial NS MDD 1 09/02/16 Insulin Sliding Scale [Novolog Vial Sliding Scale -] 1 vial SQ ACHS units 09/02 Family Disease History - Family Disease History Family Disease History: Heart Disease: Mother, Respiratory: Sister (asthma), Other: Father (volvulus) Review of Systems - Review of Systems Constitutional: denies: No Symptoms, Chills, Diaphoresis, Fever, Lethargy, Loss of Appetite, Malaise, Night Sweats, Unintentional Wgt. Loss, Weakness, Other Eyes: denies: No Symptoms, Blind Spots, Blurred Vision, Double Vision, Eye Pain , Floaters, Photophobia, Recent Change in Vision, Other HENT: denies: No Symptoms, Difficult Swallowing, Ear Discharge, Ear Pain, Epistaxis, Gingival Bleeding, Hearing Loss, Mouth Swelling, Nasal Congestion, Ocular Prosthesis, Throat Pain, Toothache, Ringing in Ears, Other Neck: denies: No Symptoms, Decreased ROM, Lumps, Pain on Movement, Stiffness, Swollen Glands, Tenderness, Other Cardiovascular: denies: No Symptoms, Chest Pain, Edema, Palpitations, Shortness of Breath, Other Respiratory: denies: No Symptoms, Cough, Exercise Intolerance, Hemoptysis, Orthopnea, PND, Snoring, SOB, SOB on Exertion, Wheezing, Other Gastrointestinal: denies: No Symptoms, Abdominal Pain, Bloating, Constipation, Diarrhea, Dysphagia, Indigestion, Melena, Nausea, Rectal Bleeding, Vomiting, Vomiting Blood, Other Genitourinary: denies: No Symptoms, Burning, Discharge, Dysuria, Flank Pain, Frequency, Hematuria, Incontinence, Lesions, Menses, Pain, Testicular Mass, Testicular Pain, Testicular Swelling, Urgency, Vaginal Bleeding, Other Breasts: denies: No Symptoms Reported, See HPI, Breast Implants, Discharge from Nipple, Lumps, Pain, Skin Changes, Other Musculoskeletal: reports: Extremity Pain, Joint Pain Integumentary: denies: No Symptoms, Blister, Bruising, Change in Color, Eczema, Erythema, Incision, Lesions, Lump, Pallor, Pruritis, Rash, Wound, Other Neurological: reports: Tremors Hematology/Lymphatic: reports: No Symptoms Psychiatric: reports: No Symptoms - Risk Factors Known Risk Factors: Yes: Diabetes Mellitus, Hypercholesterolemia, Hypertension Vital Signs: Vital Signs Temperature 98.9 F 01/17/17 06:00 Pulse Rate 83 11/04/17 06:00 Respiratory Rate 20 01/17/17 06:00 Blood Pressure 121/52 01/17/17 06:00 O2 Sat by Pulse Oximetry (%) 95 01/16/17 23:53 Constitutional: Yes: Well Nourished, No Distress, Calm Eyes: Yes: WNL, Conjunctiva Clear, EOM Intact, PERRL HENT: Yes: WNL, Atraumatic, Normocephalic Neck: Yes: WNL, Supple, Trachea Midline Respiratory: Yes: WNL, Regular, CTA Bilaterally. No: Rales, Rhonchi, Wheezes Gastrointestinal: Yes: WNL, Normal Bowel Sounds, Soft. No: Distention, Tenderness Renal/: Yes: WNL Cardiovascular: Yes: Regular Rate and Rhythm. No: Bradycardia, Tachycardia, Pulse Irregular, Gallop, Rub, Varicosities JVD: No Carotid Bruit: No PMI: Non-Displaced Heart Sounds: Yes: S1, S2. No: Split S2, S3, S4, Clicks, Gallop, Rub, Bruit Murmur: No: Systolic Murmur, Diastolic Murmur Musculoskeletal: Yes: Other (pain from L hip fracture) Extremities: Yes: Internal Rotation Edema: No Peripheral Pulses WNL: Yes Peripheral Pulses: 2+ Left Doralis Pedis, 2+ Right Dorsalis Pedis Integumentary: Yes: WNL Neurological: Yes: Alert, Oriented, Tremors Psychiatric: Yes: Alert, Oriented - Other Data Labs, Other Data: INR, PTT INR 1.08 (0.82-1.09) 01/16/17 16:40 EKG-NSR 87bpm, nonspecific ST abnl Prior Cardiac Procedures: PTCA with Stent Imaging - Results Chest X-ray: Report Reviewed, Image Reviewed EKG: Report Reviewed, Image Reviewed Other: Report Reviewed, Image Reviewed Assessment/Plan 56 year old woman with a history of HTN, HLD, DMII, multivessel CAD s/p MARGARITO x 3 2005 LAD/RCA/LCx, mult episodes of hypoglycemia in the past admitted with a L hip fracture planned for likely surgery. Pt was seen and examined today in nad. States she has significant pain on and off from her hip fracture. Denies any chest pain or sob episodes recently. states that prior to her injury she would walk a lot without limitation to her exercise tolerance and without chest pain or sob either with rest or with exertion. Her last nuclear stress test was 2013 and showed no ischemia and last echo 04/2016 was reportedly overall normal. No palpitations, pnd, orthopnea, LE edema. no syncope or near syncope. Perioperative cardiac risk assessment -at this time there is no cardiac contraindications to planned hip surgery -pt does have known multivessel CAD with multiple stents last in 2005 but denies any recent chest pain or sob. As per reports from outpatient office no ischemia on last nuclear stress test and overall normal structural heart on last echo. -surgery would be considered urgent due to pain and immobility and further risk if delayed thus would recc to proceed without delay for additional cardiac work up. -pt is on aspirin and plavix due to history of multivessel stents, would prefer to continue at least 1 anti-platelet throughout the perioperative period but if needed (at the discretion of the surgeon) 1 or both can be held until can be resumed todd post op. -cont statin -on review of prior admission, pt is not on a bblocker, will clarify why ( possibly due to history of mult episodes of hypoglycemia), would not start now given normal BP off meds and insufficient time prior to surgery to titrate to tolerated dose CAD-prior stents as above -cont ASA and Plavix for now -cont statin HTN-adequately controlled -does not require anti-htn meds at this time HLD -cont statin
[2017-01-17 07:37] LABS: ALBUMIN 2.8 g/dl (3.4-5.0); ALK PHOS 102 U/L (45-117); ANION GAP 9 (8-16); BILIRUBIN,TOTAL 0.2 mg/dL (0.2-1.0); CO2 25 mmol/L (21-32); CREATININE 0.7 mg/dL (0.55-1.02); GLUCOSE,RANDOM 128 mg/dL (74-106); SGOT/AST 11 U/L (15-37); SGPT/ALT 16 U/L (12-78); TOT PROT 5.9 g/dl (6.4-8.2)
[2017-01-17 08:06] LABS: MCH 33.9 pg (25.7-33.7); MCHC 34.2 g/dl (32.0-36.0); PLATELET COUNT 278 K/MM3 (134-434); RDW 13.1 % (11.6-15.6); WHITE BLOOD COUNT 9.7 K/mm3 (4.0-10.0)
[2017-01-17] MEDS ORDERED: CLOPIDOGREL BISULFATE 75 MG TABLET (FP) PO SCH (10:00)
[2017-01-17] MEDS ORDERED: ASPIRIN 81 MG CHEWABLE TABLETS PO SCH (10:00)
[2017-01-17] MEDS ORDERED: DULoxetine HCL 60 MG CAPSULE.DR PO SCH (10:00)
[2017-01-17] MEDS ORDERED: DULOXETINE HCL PO SCH (10:00)
[2017-01-17] MEDS ORDERED: POTASSIUM CHLORIDE TABS 20 MEQ TABLET.ER (FP) PO ONE (10:03)
[2017-01-17] MEDS: DULoxetine HCL 30 MG CAPSULE.DR (FP) PO SCH (10:45)
--- NOTE | 2017-01-17 11:54 | PN ---
Progress Note, Physician History of Present Illness: Pt with significant Hypoglicemia last night( I was in direct contact with pt's night nurse and directly involved in her care); hypoglicemia possible secondary to pt missing lunch and dinner. Pt w/o fever, chills, new/ change in cough (pt is a chronic smoker), CP, abd pain, N, V, dysuria. Pt tolerates food well. - Current Medication List Current Medications: Active Medications Aspirin (Asa -) 81 mg PO DAILY [facility] Last Admin: 01/17/17 10:28 Dose: 81 mg Atorvastatin Calcium (Lipitor -) 20 mg PO HS [facility] Last Admin: 01/16/17 22:18 Dose: 20 mg Clopidogrel Bisulfate (Plavix -) 75 mg PO DAILY [facility] Last Admin: 01/17/17 10:46 Dose: 75 mg Duloxetine HCl (Cymbalta -) 90 mg PO DAILY [facility] Last Admin: 01/17/17 10:45 Dose: 90 mg Insulin Aspart (Novolog Vial Sliding Scale -) 1 vial SQ ACHS [facility] PRN Reason: Protocol Last Admin: 01/17/17 06:36 Dose: Not Given Morphine Sulfate (Morphine Sulfate) 2 mg IVPUSH Q3H PRN PRN Reason: PAIN Last Admin: 01/17/17 10:28 Dose: 2 mg Primidone (Mysoline -) 250 mg PO TID [facility] Last Admin: 01/17/17 06:37 Dose: Not Given - Objective Vital Signs: Vital Signs Temperature 98.9 F 01/17/17 06:00 Pulse Rate 83 01/17/17 06:00 Respiratory Rate 20 01/17/17 06:00 Blood Pressure 121/52 01/17/17 06:00 O2 Sat by Pulse Oximetry (%) 95 01/16/17 23:53 Constitutional: Yes: No Distress, Calm Cardiovascular: Yes: Regular Rate and Rhythm, S1, S2 Respiratory: Yes: Regular, CTA Bilaterally, Other (coarse BS). No: Rales Gastrointestinal: Yes: Normal Bowel Sounds, Soft. No: Tenderness Edema: No Neurological: Yes: Alert, Oriented Labs: CBC, BMP 01/17/17 06:30 01/17/17 06:30 INR, PTT INR 1.08 (0.82-1.09) 01/16/17 16:40 Problem List - Problems (1) Closed left hip fracture Code(s): S72.002A - FRACTURE OF UNSP PART OF NECK OF LEFT FEMUR, INIT (2) CAD (coronary artery disease) Code(s): I25.10 - ATHSCL HEART DISEASE OF [place] CORONARY ARTERY W/O ANG PCTRS (3) Diabetes Code(s): E11.9 - TYPE 2 DIABETES MELLITUS WITHOUT COMPLICATIONS Qualifiers: Diabetes mellitus type: type 2 Diabetes mellitus complication status: with hypoglycemia Diabetes mellitus complication detail: without coma (4) Diabetic hypoglycemia Code(s): E11.649 - TYPE 2 DIABETES MELLITUS WITH HYPOGLYCEMIA WITHOUT COMA (5) Hypokalemia Code(s): E87.6 - HYPOKALEMIA Assessment/Plan Pain control Ortho consult Cardio consult appreciated; Pt is cleared for OR. pt on ASA and Plavix. Hypolglicemia improved; to add NPH starting tonight; monitor BGM. AM labs
--- NOTE | 2017-01-17 15:27 | PN ---
Progress Note (short form) - Note Progress Note: Pt seen and examined. She is 56 yo F with IDDM, and CAD who takes ASA and Plavix every day, and last took both today. She fell 1 day ago, c/o pain in the left hip. PE LLE held in flexion at the hip and the knee. LLE grossly NVI. No Diabetic neuropathy. Good ROM at the knee, ankle, foot, toes. + pain at the left hip with any motion of the LLE Xrays Show a nondisplaced Left Femoral neck fracture Imp L femoral neck fracture Rec Surgery, Hip ORIF with Cannulated Screws. Details of the surgery discussed with the patient. She last took both ASA and Plavix today, therefore the surgery is delayed until atleast Thursday. We will monitor and plan surgery with the PMD.
[2017-01-17] MEDS: ATORVASTATIN CA 20 MG TABLET (FP) PO SCH (22:05)
[2017-01-17 22:21] LABS: URINE APPEARANCE SLCLOUDY; URINE BILIRUBIN NEGATIVE (NEGATIVE); URINE BLOOD 1+ (NEGATIVE); URINE COLOR YELLOW; URINE GLUCOSE (UA) 3+ (NEGATIVE); URINE KETONE 1+ (NEGATIVE); URINE NITRITE NEGATIVE (NEGATIVE); URINE PROTEIN NEGATIVE (NEGATIVE); URINE UROBILINOGEN NEGATIVE mg/dL (0.2-1.0)
[2017-01-17 22:28] LABS: URINE BACTERIA RARE /hpf (NONE SEEN); URINE HYALINE CAST 5 /lpf; URINE MUCUS RARE; URINE RBC 9; URINE WBC 44
[2017-01-17 22:36] LABS: URINE MARIJUANA THC POSITIVE ng/ml (CUTOFF=50)
[2017-01-18] MEDS: PRIMIDONE 250 MG TABLET PO SCH ×3 (06:24→21:45)
[2017-01-18] MEDS: INSULIN SLIDING SCALE (NOVOLOG) 1 VIAL SQ SCH ×4 (06:24→21:46)
[2017-01-18] MEDS ORDERED: INSULIN (NOVOLOG) ASPART 100 UNITS/ML 10ML VIAL ONE (06:48)
[2017-01-18] MEDS ORDERED: PT OWN MED DRAWER 7, Y5N ONE ×2 (09:03→14:09)
[2017-01-18 09:07] LABS: MCH 33.2 pg (25.7-33.7); MCHC 33.3 g/dl (32.0-36.0); MEAN CELL VOLUME 99.7 fl (80-96); MEAN PLT VOLUME 9.1 fl (7.5-11.1); PLATELET COUNT 293 K/MM3 (134-434); RDW 13.1 % (11.6-15.6); WHITE BLOOD COUNT 9.3 K/mm3 (4.0-10.0)
[2017-01-18] MEDS: DULoxetine HCL 30 MG CAPSULE.DR (FP) PO SCH (09:25)
[2017-01-18 09:34] LABS: ALK PHOS 109 U/L (45-117); BILIRUBIN,TOTAL 0.3 mg/dL (0.2-1.0); CREATININE 0.5 mg/dL (0.55-1.02); SGOT/AST 12 U/L (15-37); SGPT/ALT 16 U/L (12-78)
[2017-01-18 09:41] LABS: ALBUMIN 2.6 g/dl (3.4-5.0); ANION GAP 11 (8-16); CALCIUM 8.5 mg/dL (8.5-10.1); CO2 23 mmol/L (21-32); GLUCOSE,RANDOM 222 mg/dL (74-106)
[2017-01-18 10:18] LABS: URINE LEUK ESTERASE 1+ (NEGATIVE)
--- NOTE | 2017-01-18 11:29 | PN ---
Progress Note, Physician History of Present Illness: seen and examined today in nad. pain adequately controlled currently. no new complaints. - Current Medication List Current Medications: Active Medications Atorvastatin Calcium (Lipitor -) 20 mg PO HS [facility] Last Admin: 01/17/17 22:05 Dose: 20 mg Duloxetine HCl (Cymbalta -) 90 mg PO DAILY [facility] Last Admin: 01/18/17 09:25 Dose: 90 mg Insulin Aspart (Novolog Vial Sliding Scale -) 1 vial SQ ACHS [facility] PRN Reason: Protocol Last Admin: 01/18/17 06:24 Dose: 6 units Morphine Sulfate (Morphine Sulfate) 2 mg IVPUSH Q3H PRN PRN Reason: PAIN Last Admin: 01/17/17 19:09 Dose: 2 mg Primidone (Mysoline -) 250 mg PO TID [facility] Last Admin: 01/18/17 06:24 Dose: 250 mg - Objective Vital Signs: Vital Signs Temperature 98.2 F 01/18/17 09:25 Pulse Rate 84 01/18/17 09:25 Respiratory Rate 17 01/18/17 09:25 Blood Pressure 108/52 01/18/17 09:25 O2 Sat by Pulse Oximetry (%) 96 01/17/17 21:00 Constitutional: Yes: No Distress, Calm Eyes: Yes: Conjunctiva Clear, EOM Intact, PERRL HENT: Yes: Atraumatic, Normocephalic Neck: Yes: Supple, Trachea Midline Cardiovascular: Yes: Regular Rate and Rhythm, S1, S2. No: Bradycardia, Tachycardia, Pulse Irregular, Bruit, JVD, Gallop, Murmur, Rub, S3, S4, Varicosities Respiratory: Yes: Regular, CTA Bilaterally. No: Rales, Rhonchi, Wheezes Gastrointestinal: Yes: Normal Bowel Sounds, Soft. No: Distention, Tenderness Musculoskeletal: Yes: Joint Stiffness Extremities: Yes: Internal Rotation Edema: No Peripheral Pulses WNL: Yes Peripheral Pulses: Left Doralis Pedis: 2+, Right Dorsalis Pedis: 2+ Neurological: Yes: Alert, Oriented Psychiatric: Yes: Alert, Oriented Labs: CBC, BMP 01/18/17 08:00 01/18/17 08:00 INR, PTT INR 1.08 (0.82-1.09) 01/16/17 16:40 - ....Imaging Chest X-ray: Report Reviewed, Image Reviewed EKG: Report Reviewed, Image Reviewed Other: Report Reviewed, Image Reviewed Assessment/Plan 56 year old woman with a history of HTN, HLD, DMII, multivessel CAD s/p MARGARITO x 3 2005 LAD/RCA/LCx, mult episodes of hypoglycemia in the past admitted with a L hip fracture planned for likely surgery. Pt was seen and examined today in nad. States she has significant pain on and off from her hip fracture. Denies any chest pain or sob episodes recently. states that prior to her injury she would walk a lot without limitation to her exercise tolerance and without chest pain or sob either with rest or with exertion. Her last nuclear stress test was 2013 and showed no ischemia and last echo 04/2016 was reportedly overall normal. No palpitations, pnd, orthopnea, LE edema. no syncope or near syncope. Perioperative cardiac risk assessment -see my note from yesterday for preop reccs -ortho saw pt yesterday, stated surgery would need to wait until at least thursday as she received ASA and Plavix yesterday -would clarify with ortho if both ASA and Plavix need to be held for procedure, if not would prefer to continue at least 1 of them -for now will dc both until this is clarified CAD-prior stents as above -resume ASA and Plavix as soon as possible -cont statin HTN-adequately controlled -does not require anti-htn meds at this time HLD -cont statin
--- NOTE | 2017-01-18 13:47 | PN ---
Progress Note, Physician History of Present Illness: Pt w/o fever, chills, cough, CP, abd pain, N, V, dysuria. Leg pain is well controlled with medication. Pt tolerates food well. - Current Medication List Current Medications: Active Medications Atorvastatin Calcium (Lipitor -) [address] [facility] Last Admin: 01/17/17 22:05 Dose: 20 mg Duloxetine HCl (Cymbalta -) [address] [facility] Last Admin: 01/18/17 09:25 Dose: 90 mg Insulin Aspart (Novolog Vial Sliding Scale -) [address] [facility] PRN Reason: Protocol Last Admin: 01/18/17 12:35 Dose: 6 units Morphine Sulfate (Morphine Sulfate) 2 mg IVPUSH Q3H PRN PRN Reason: PAIN Last Admin: 01/17/17 19:09 Dose: 2 mg Primidone (Mysoline -) [address] [facility] Last Admin: 01/18/17 06:24 Dose: 250 mg - Objective Vital Signs: Vital Signs Temperature 98.2 F 01/18/17 09:25 Pulse Rate 84 01/18/17 09:25 Respiratory Rate 17 01/18/17 09:25 Blood Pressure 108/52 01/18/17 09:25 O2 Sat by Pulse Oximetry (%) 96 01/17/17 21:00 Constitutional: Yes: No Distress, Calm Cardiovascular: Yes: Regular Rate and Rhythm, S1, S2 Respiratory: Yes: Regular, Other (coarse). No: Rales Gastrointestinal: Yes: Normal Bowel Sounds, Soft. No: Tenderness Edema: No Neurological: Yes: Alert, Oriented Labs: CBC, BMP 01/18/17 08:00 01/18/17 08:00 INR, PTT INR 1.08 (0.82-1.09) 01/16/17 16:40 Problem List - Problems (1) Closed left hip fracture Code(s): S72.002A - FRACTURE OF UNSP PART OF NECK OF LEFT FEMUR, INIT (2) CAD (coronary artery disease) Code(s): I25.10 - ATHSCL HEART DISEASE OF [place] CORONARY ARTERY W/O ANG PCTRS (3) Diabetes Code(s): E11.9 - TYPE 2 DIABETES MELLITUS WITHOUT COMPLICATIONS Qualifiers: Diabetes mellitus type: type 2 Diabetes mellitus complication status: with hypoglycemia Diabetes mellitus complication detail: without coma (4) Diabetic hypoglycemia Code(s): E11.649 - TYPE 2 DIABETES MELLITUS WITH HYPOGLYCEMIA WITHOUT COMA (5) Hypokalemia Code(s): E87.6 - HYPOKALEMIA Assessment/Plan Pain control Ortho consult appreciated; case was d/w Dr. Oates: pt needs to be art least 3 days off ASA and Plavix for ORIF Cardio consult appreciated AM labs DVT proph Consider restarting Insulin 70/30
[2017-01-18] MEDS: morphine SULFATE 4 MG/ML VIAL IVPUSH PRN (20:21)
[2017-01-18] MEDS: HEPARIN NA (PORCINE) 5,000 UNITS/ML 1ML VIAL SQ SCH (21:45)
[2017-01-18] MEDS: ATORVASTATIN CA 20 MG TABLET (FP) PO SCH (21:47)
[2017-01-19] MEDS ORDERED: PT OWN MED DRAWER 7, Y5N ONE ×3 (05:58→22:35)
[2017-01-19] MEDS: INSULIN SLIDING SCALE (NOVOLOG) 1 VIAL SQ SCH ×4 (06:24→22:38)
[2017-01-19] MEDS: PRIMIDONE 250 MG TABLET PO SCH ×3 (06:25→22:37)
[2017-01-19] MEDS ORDERED: INSULIN (NOVOLOG MIX 70/30) 100 UNITS/ML MDV SQ SCH (07:00)
[2017-01-19] MEDS: morphine SULFATE 4 MG/ML VIAL IVPUSH PRN ×2 (07:08→18:25)
[2017-01-19 07:42] LABS: MCH 33.3 pg (25.7-33.7); MCHC 33.5 g/dl (32.0-36.0); MEAN CELL VOLUME 99.4 fl (80-96); MEAN PLT VOLUME 9.1 fl (7.5-11.1); PLATELET COUNT 283 K/MM3 (134-434); WHITE BLOOD COUNT 7.2 K/mm3 (4.0-10.0)
[2017-01-19 08:28] LABS: ANION GAP 10 (8-16); CALCIUM 8.1 mg/dL (8.5-10.1); CO2 26 mmol/L (21-32); CREATININE 0.5 mg/dL (0.55-1.02); GLUCOSE,RANDOM 232 mg/dL (74-106)
[2017-01-19] MEDS: HEPARIN NA (PORCINE) 5,000 UNITS/ML 1ML VIAL SQ SCH ×2 (09:21→22:38)
[2017-01-19] MEDS: DULoxetine HCL 30 MG CAPSULE.DR (FP) PO SCH (09:21)
--- NOTE | 2017-01-19 10:33 | PN ---
Progress Note, Physician History of Present Illness: 56 year old woman with a history of HTN, HLD, DMII, multivessel CAD s/p MARGARITO x 3 2005 LAD/RCA/LCx, mult episodes of hypoglycemia in the past admitted with a L hip fracture planned for likely surgery. Pt was seen and examined today in [facility]. States she has significant pain on and off from her hip fracture. Denies any chest pain or sob episodes recently. states that prior to her injury she would walk a lot without limitation to her exercise tolerance and without chest pain or sob either with rest or with exertion. Her last nuclear stress test was 2013 and showed no ischemia and last echo 04/2016 was reportedly overall normal. No palpitations, pnd, orthopnea, LE edema. no syncope or near syncope. - Current Medication List Current Medications: Active Medications Atorvastatin Calcium (Lipitor -) 20 mg PO HS [facility]ES [facility] Last Admin: 01/18/17 21:47 Dose: 20 mg Duloxetine HCl (Cymbalta -) 90 mg PO DAILY [facility] Last Admin: 01/19/17 09:21 Dose: 90 mg Heparin Sodium (Porcine) (Heparin -) 5,000 unit SQ BID [facility] Last Admin: 01/19/17 09:21 Dose: 5,000 unit Insulin Aspart (Novolog Vial Sliding Scale -) 1 vial SQ ACHS COUNT INCLUDES [facility] PRN Reason: Protocol Last Admin: 01/19/17 06:24 Dose: 4 units Insulin Aspart (Novolog Mix 70/30 Vial) 7 units SQ ACBK COUNT [facility]CLUDES [facility] Last Admin: 01/19/17 06:25 Dose: 7 units Morphine Sulfate (Morphine Sulfate) 2 mg IVPUSH Q3H PRN PRN Reason: PAIN Last Admin: 01/19/17 07:08 Dose: 2 mg Primidone (Mysoline -) 250 mg PO TID [facility] Last Admin: 01/19/17 06:25 Dose: 250 mg - Objective Vital Signs: Vital Signs Temperature 97.6 F 01/19/17 05:44 Pulse Rate 75 01/19/17 05:44 Respiratory Rate 20 01/19/17 05:44 Blood Pressure 124/70 01/19/17 05:44 O2 Sat by Pulse Oximetry (%) 98 01/18/17 21:00 Eyes: Yes: WNL, Conjunctiva Clear, EOM Intact HENT: Yes: WNL, Atraumatic, Normocephalic Neck: Yes: WNL, Supple, Trachea Midline Cardiovascular: Yes: WNL, Regular Rate and Rhythm Respiratory: Yes: WNL, Regular, CTA Bilaterally Gastrointestinal: Yes: WNL, Normal Bowel Sounds Genitourinary: Yes: WNL Musculoskeletal: Yes: WNL Extremities: Yes: WNL Edema: No Integumentary: Yes: WNL Neurological: Yes: WNL, Alert, Oriented ...Motor Strength: WNL Psychiatric: Yes: WNL Labs: CBC, BMP 01/19/17 05:45 01/19/17 05:45 INR, PTT INR 1.08 (0.82-1.09) 01/16/17 16:40 Problem List - Problems (1) Asthma Code(s): J45.909 - UNSPECIFIED ASTHMA, UNCOMPLICATED (2) Closed left hip fracture Code(s): S72.002A - FRACTURE OF UNSP PART OF NECK OF LEFT FEMUR, INIT (3) Diabetic hypoglycemia Code(s): E11.649 - TYPE 2 DIABETES MELLITUS WITH HYPOGLYCEMIA WITHOUT COMA (4) Elevated LFTs Code(s): R79.89 - OTHER SPECIFIED ABNORMAL FINDINGS OF BLOOD CHEMISTRY (5) Fever Code(s): R50.9 - FEVER, UNSPECIFIED (6) Hypokalemia Code(s): E87.6 - HYPOKALEMIA (7) Lethargy Code(s): R53.83 - OTHER FATIGUE (8) CAD (coronary artery disease) Code(s): I25.10 - ATHSCL HEART DISEASE OF [place] CORONARY ARTERY W/O ANG PCTRS (9) Diabetic autonomic neuropathy associated with diabetes mellitus due to underlying condition Code(s): E08.43 - DIAB DUE TO UNDRL COND W DIABETIC AUTONM (POLY)NEUROPATHY (10) Anemia Code(s): D64.9 - ANEMIA, UNSPECIFIED (11) Corneal abrasion, left Code(s): S05.02XA - INJ CONJUNCTIVA AND CORNEAL ABRASION W/O FB, LEFT EYE, INIT Qualifiers: Encounter type: initial encounter Qualified Code(s): S05.02XA - Injury of conjunctiva and corneal abrasion without foreign body, left eye, initial encounter; S05.02XA - Injury of conjunctiva and corneal abrasion without foreign body, left eye, initial encounter (12) Diabetes Code(s): E11.9 - TYPE 2 DIABETES MELLITUS WITHOUT COMPLICATIONS Qualifiers: Diabetes mellitus type: type 2 Diabetes mellitus complication status: with hypoglycemia Diabetes mellitus complication detail: without coma (13) Diarrhea Code(s): R19.7 - DIARRHEA, UNSPECIFIED (14) Essential tremor Code(s): G25.0 - ESSENTIAL TREMOR (15) Facial contusion Code(s): S00.83XA - CONTUSION OF OTHER PART OF HEAD, INITIAL ENCOUNTER Qualifiers: Encounter type: initial encounter Qualified Code(s): S00.83XA - Contusion of other part of head, initial encounter; S00.83XA - Contusion of other part of head, initial encounter (16) Finger pain, left Code(s): M79.645 - PAIN IN LEFT FINGER(S) (17) Fracture of left tibia and fibula Code(s): S82.202A - UNSP FRACTURE OF SHAFT OF LEFT TIBIA, INIT FOR CLOS FX S82.402A - UNSP FRACTURE OF SHAFT OF LEFT FIBULA, INIT FOR CLOS FX Qualifiers : Encounter type: initial encounter Fracture type: closed Qualified Code(s): S82.202A - Unspecified fracture of shaft of left tibia, initial encounter for closed fracture; S82.202A - Unspecified fracture of shaft of left tibia, initial encounter for closed fracture; S82.402A - Unspecified fracture of shaft of left fibula, initial encounter for closed fracture; S82.402A - Unspecified fracture of shaft of left fibula, initial encounter for closed fracture (18) History of [place] (myocardial infarction) Code(s): I25.2 - OLD MYOCARDIAL INFARCTION (19) Hypoglycemia Code(s): E16.2 - HYPOGLYCEMIA, UNSPECIFIED (20) Hypoglycemia due to insulin Code(s): E16.0 - DRUG-INDUCED HYPOGLYCEMIA WITHOUT COMA T38.3X5A - ADVERSE EFFECT OF INSULIN AND ORAL HYPOGLYCEMIC DRUGS, INIT (21) Hypothermia Code(s): T68.XXXA - HYPOTHERMIA, INITIAL ENCOUNTER (22) Lactic acidosis Code(s): E87.2 - ACIDOSIS (23) Seizure Code(s): R56.9 - UNSPECIFIED CONVULSIONS (24) Systemic inflammatory response syndrome (SIRS) Code(s): R65.10 - SIRS OF NON-INFECTIOUS ORIGIN W/O ACUTE ORGAN DYSFUNCTION (25) UTI (urinary tract infection) Code(s): N39.0 - URINARY TRACT INFECTION, SITE NOT SPECIFIED Qualifiers: Urinary tract infection type: site unspecified Hematuria presence: without hematuria Qualified Code(s): N39.0 - Urinary tract infection, site not specified; N39.0 - Urinary tract infection, site not specified; R31.9 - Hematuria, unspecified; R31.9 - Hematuria, unspecified (26) COPD (chronic obstructive pulmonary disease) Code(s): J44.9 - CHRONIC OBSTRUCTIVE PULMONARY DISEASE, UNSPECIFIED (27) Humeral head fracture Code(s): S42.293A - OTH DISP FX OF UPPER END OF UNSP HUMERUS, INIT FOR CLOS FX (28) Knee fracture, left Code(s): [id number] - (29) Smoker Code(s): F17.200 - NICOTINE DEPENDENCE, UNSPECIFIED, UNCOMPLICATED Assessment/Plan Perioperative cardiac risk assessment -no absolute contraindications to ORIF cleared for the procedure, mild to moderate risks for perioperative complications due to coomorbidities, cardiac polanco optimized, needs to be monitor on telemetry post op -would clarify with ortho if both ASA and Plavix need to be held for procedure, if not would prefer to continue at least 1 of them -for now will dc both until this is clarified CAD-prior stents 2005 Neg stress MIBI 2013 asymptomatic normal echo and carotids 2016 -resume ASA and Plavix as soon as possible -cont statin HTN-adequately controlled -does not require anti-htn meds at this time HLD -cont statin not on bb due to severe hypoglycemic episodes.
[2017-01-19] MEDS ORDERED: INSULIN (NOVOLOG) ASPART 100 UNITS/ML 10ML VIAL ONE ×2 (11:45→22:36)
--- NOTE | 2017-01-19 11:50 | PN ---
Progress Note (short form) - Note Progress Note: Pt seen and examined. She last took ASA and Plavix 2 days ago, Thursday. Therefore the left hip surgery is delayed. I will put her on the OR schedule for Thursday 8am. NPO after midnight Thursday. Medical clearance.
--- NOTE | 2017-01-19 14:34 | PN ---
Progress Note, Physician History of Present Illness: Pt w/o fever, chills, cough, CP, abd pain, N, V, dysuria. - Current Medication List Current Medications: Active Medications Atorvastatin Calcium (Lipitor -) 20 mg PO HS [facility] Last Admin: 01/18/17 21:47 Dose: 20 mg Duloxetine HCl (Cymbalta -) 90 mg PO DAILY [facility] Last Admin: 01/19/17 09:21 Dose: 90 mg Heparin Sodium (Porcine) (Heparin -) 5,000 unit SQ BID [facility] Last Admin: 01/19/17 09:21 Dose: 5,000 unit Insulin Aspart (Novolog Vial Sliding Scale -) 1 vial SQ ACHS [facility] PRN Reason: Protocol Last Admin: 01/19/17 11:47 Dose: 10 units Insulin Aspart (Novolog Mix 70/30 Vial) 7 units SQ ACBK [facility] Last Admin: 01/19/17 06:25 Dose: 7 units Morphine Sulfate (Morphine Sulfate) 2 mg IVPUSH Q3H PRN PRN Reason: PAIN Last Admin: 01/19/17 07:08 Dose: 2 mg Primidone (Mysoline -) 250 mg PO TID [facility] Last Admin: 01/19/17 14:00 Dose: 250 mg - Objective Vital Signs: Vital Signs Temperature 98.6 F 01/19/17 10:00 Pulse Rate 70 01/19/17 10:00 Respiratory Rate 20 01/19/17 10:00 Blood Pressure 115/51 01/19/17 10:00 O2 Sat by Pulse Oximetry (%) 98 01/18/17 21:00 Constitutional: Yes: No Distress, Calm Cardiovascular: Yes: Regular Rate and Rhythm, S1, S2 Respiratory: Yes: Regular, CTA Bilaterally. No: Rales Gastrointestinal: Yes: Normal Bowel Sounds, Soft, Tenderness Edema: No Neurological: Yes: Alert, Oriented Labs: CBC, BMP 01/19/17 05:45 01/19/17 05:45 INR, PTT INR 1.08 (0.82-1.09) 01/16/17 16:40 Problem List - Problems (1) Closed left hip fracture Code(s): S72.002A - FRACTURE OF UNSP PART OF NECK OF LEFT FEMUR, INIT (2) CAD (coronary artery disease) Code(s): I25.10 - ATHSCL HEART DISEASE OF [place] CORONARY ARTERY W/O ANG PCTRS (3) Diabetes Code(s): E11.9 - TYPE 2 DIABETES MELLITUS WITHOUT COMPLICATIONS Qualifiers: Diabetes mellitus type: type 2 Diabetes mellitus complication status: with hypoglycemia Diabetes mellitus complication detail: without coma (4) Diabetic hypoglycemia Code(s): E11.649 - TYPE 2 DIABETES MELLITUS WITH HYPOGLYCEMIA WITHOUT COMA (5) Hypokalemia Code(s): E87.6 - HYPOKALEMIA Assessment/Plan Pain control Ortho consult appreciated; pt for OR on Thursday (waiting for ASA and Plavix effect to wear off) Cardio consult appreciated AM labs DVT proph Pt was restarted on Insulin 70/30. to monitor BGM.
[2017-01-19] MEDS: ATORVASTATIN CA 20 MG TABLET (FP) PO SCH (22:37)
[2017-01-20] MEDS: PRIMIDONE 250 MG TABLET PO SCH ×3 (06:27→21:47)
[2017-01-20] MEDS: INSULIN SLIDING SCALE (NOVOLOG) 1 VIAL SQ SCH ×4 (06:29→21:59)
[2017-01-20] MEDS ORDERED: INSULIN (NOVOLOG MIX 70/30) 100 UNITS/ML MDV SQ SCH (07:00)
--- NOTE | 2017-01-20 08:59 | EKG ---
Test Reason : Blood Pressure : / mmHG Vent. Rate : 087 BPM Atrial Rate : 087 BPM P-R Int : 140 ms QRS Dur : 070 ms QT Int : 432 ms P-R-T Axes : 071 062 048 degrees QTc Int : 519 ms POOR DATA QUALITY, INTERPRETATION MAY BE ADVERSELY AFFECTED NORMAL SINUS RHYTHM WHEN COMPARED WITH ECG OF 30-AUG-2016 06:58, NO SIGNIFICANT CHANGE WAS FOUND Confirmed by EMILEE HUTCHINS, ZOHRA (2016) on 01/20/2017 8:58:55 AM Referred By: Confirmed By:ZOHRA HEBERT MD
[2017-01-20] MEDS: DULoxetine HCL 30 MG CAPSULE.DR (FP) PO SCH (09:59)
[2017-01-20] MEDS: HEPARIN NA (PORCINE) 5,000 UNITS/ML 1ML VIAL SQ SCH ×2 (10:01→21:47)
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
[2017-01-20] MEDS ORDERED: PT OWN MED DRAWER 7, Y5N ONE ×2 (12:38→21:40)
[2017-01-20] MEDS: morphine SULFATE 4 MG/ML VIAL IVPUSH PRN ×3 (12:42→21:50)
--- NOTE | 2017-01-20 14:59 | PN ---
Progress Note (short form) - Note Progress Note: Pt to go to the OR tomorrow morning for left Hip surgery. Final Medical clearance NPO after midnight
--- NOTE | 2017-01-20 15:56 | PN ---
Progress Note, Physician History of Present Illness: Pt w/o fever, chills, cough, CP, abd pain, N, V, dysuria. - Current Medication List Current Medications: Active Medications Atorvastatin Calcium (Lipitor -) 20 mg PO HS [facility] Last Admin: 01/19/17 22:37 Dose: 20 mg Duloxetine HCl (Cymbalta -) 90 mg PO DAILY [facility] Last Admin: 01/20/17 09:59 Dose: 90 mg Heparin Sodium (Porcine) (Heparin -) 5,000 unit SQ BID [facility] Last Admin: 01/20/17 10:01 Dose: 5,000 unit Insulin Aspart (Novolog Vial Sliding Scale -) 1 vial SQ ACHS [facility] PRN Reason: Protocol Last Admin: 01/20/17 11:59 Dose: 2 units Insulin Aspart (Novolog Mix 70/30 Vial) 12 units SQ ACBK [facility] Last Admin: 01/20/17 06:27 Dose: 12 units Morphine Sulfate (Morphine Sulfate) 2 mg IVPUSH Q3H PRN PRN Reason: PAIN Last Admin: 01/20/17 12:42 Dose: 2 mg Primidone (Mysoline -) 250 mg PO TID [facility] Last Admin: 01/20/17 13:51 Dose: 250 mg - Objective Vital Signs: Vital Signs Temperature 97.9 F 01/20/17 15:00 Pulse Rate 73 01/20/17 15:00 Respiratory Rate 18 01/20/17 15:00 Blood Pressure 118/76 01/20/17 15:00 O2 Sat by Pulse Oximetry (%) 98 01/18/17 21:00 Constitutional: Yes: No Distress, Calm Neck: Yes: Trachea Midline Cardiovascular: Yes: Regular Rate and Rhythm, S1, S2 Respiratory: Yes: Regular, CTA Bilaterally. No: Rales Gastrointestinal: Yes: Normal Bowel Sounds, Soft. No: Tenderness Edema: No Neurological: Yes: Alert, Oriented Labs: CBC, BMP 01/19/17 05:45 01/19/17 05:45 INR, PTT INR 1.08 (0.82-1.09) 01/16/17 16:40 Problem List - Problems (1) Closed left hip fracture Code(s): S72.002A - FRACTURE OF UNSP PART OF NECK OF LEFT FEMUR, INIT (2) CAD (coronary artery disease) Code(s): I25.10 - ATHSCL HEART DISEASE OF [place] CORONARY ARTERY W/O ANG PCTRS (3) Diabetes Code(s): E11.9 - TYPE 2 DIABETES MELLITUS WITHOUT COMPLICATIONS Qualifiers: Diabetes mellitus type: type 2 Diabetes mellitus complication status: with hypoglycemia Diabetes mellitus complication detail: without coma (4) Diabetic hypoglycemia Code(s): E11.649 - TYPE 2 DIABETES MELLITUS WITH HYPOGLYCEMIA WITHOUT COMA (5) Hypokalemia Code(s): E87.6 - HYPOKALEMIA Assessment/Plan Pain control Ortho consult appreciated; pt for OR on Thursday (waiting for ASA and Plavix effect to wear off) Cardio consult appreciated, cleared for surgery. AM labs DVT proph Pt was restarted on Insulin 70/30. to monitor BGM. Pt is cleared for Surgery.
[2017-01-20] MEDS: ATORVASTATIN CA 20 MG TABLET (FP) PO SCH (21:48)
[2017-01-21] MEDS ORDERED: BUPIVACAINE HCL/PF 0.5% (5MG/ML) 10 ML VIAL ONE (07:00)
[2017-01-21] MEDS ORDERED: MIDAZOLAM HCL 2 MG/2 ML SINGLE DOSE VIAL ONE (07:12)
[2017-01-21] MEDS ORDERED: SUCCINYLCHOLINE CHLORIDE 200 MG/10 ML VIAL ONE (07:12)
[2017-01-21] MEDS ORDERED: PROPOFOL 20 ML ONE ×3 (07:12)
[2017-01-21] MEDS ORDERED: ePHEDrine SULFATE 50 MG/1 ML AMPULE ONE (07:12)
[2017-01-21] MEDS ORDERED: PHENYLEPHRINE HCL 10 MG/1 ML SINGLE DOSE VIAL ONE (07:12)
[2017-01-21 08:22] LABS: MCH 33.1 pg (25.7-33.7); MCHC 33.2 g/dl (32.0-36.0); MEAN CELL VOLUME 99.5 fl (80-96); MEAN PLT VOLUME 9.4 fl (7.5-11.1); PLATELET COUNT 285 K/MM3 (134-434); RDW 13.1 % (11.6-15.6); WHITE BLOOD COUNT 7.3 K/mm3 (4.0-10.0)
[2017-01-21] MEDS ORDERED: ceFAZolin SODIUM 1 GM VIAL IVPB ONE (08:38)
[2017-01-21] MEDS ORDERED: PT OWN MED DRAWER 7, Y5N ONE ×3 (09:19→20:50)
[2017-01-21 09:20] LABS: ANION GAP 16 (8-16); CO2 22 mmol/L (21-32); CREATININE 0.5 mg/dL (0.55-1.02)
--- NOTE | 2017-01-21 09:29 | OP ---
Operative Note - Note: Operative Date: 01/21/17 Pre-Operative Diagnosis: left femoral neck fracture Operation: left hip ORIF with cannulated screws Implants: Etta Asnis-III 6.0 cannulated screws x 3, 80mm Surgeon: Wilmar Oates Anesthesiologist/MACHINE STRIPER: Dmitry Clayton Anesthesia: General Estimated Blood Loss (mls): 10 Blood Volume Replaced (mls): 0 Fluid Volume Replaced (mls): 500 Operative Report Dictated: Yes
--- NOTE | 2017-01-21 10:38 | PN ---
Progress Note, Physician History of Present Illness: 56 year old woman with a history of HTN, HLD, DMII, multivessel CAD s/p MARGARITO x 3 2005 LAD/RCA/LCx, mult episodes of hypoglycemia in the past admitted with a L hip fracture planned for likely surgery. Pt was seen and examined today in [facility]. States she has significant pain on and off from her hip fracture. Denies any chest pain or sob episodes recently. states that prior to her injury she would walk a lot without limitation to her exercise tolerance and without chest pain or sob either with rest or with exertion. Her last nuclear stress test was 2013 and showed no ischemia and last echo 04/2016 was reportedly overall normal. No palpitations, pnd, orthopnea, LE edema. no syncope or near syncope. - Current Medication List Current Medications: Active Medications Atorvastatin Calcium (Lipitor -) 20 mg PO HS [facility] Duloxetine HCl (Cymbalta -) 90 mg PO DAILY [facility] Heparin Sodium (Porcine) (Heparin -) 5,000 unit SQ BID [facility] Insulin Aspart (Novolog Mix 70/30 Vial) 12 units SQ ACBK [facility] Insulin Aspart (Novolog Vial Sliding Scale -) 1 vial SQ ACHS [facility] PRN Reason: Protocol Morphine Sulfate (Morphine Sulfate) 2 mg IVPUSH Q3H PRN PRN Reason: PAIN Primidone (Mysoline -) 250 mg PO TID [facility] - Objective Vital Signs: Vital Signs Temperature 98.3 F 01/21/17 09:39 Pulse Rate 86 01/21/17 10:20 Respiratory Rate 16 01/21/17 10:20 Blood Pressure 101/52 01/21/17 10:20 O2 Sat by Pulse Oximetry (%) 98 01/21/17 10:20 Eyes: Yes: WNL, Conjunctiva Clear, EOM Intact HENT: Yes: WNL, Atraumatic, Normocephalic Neck: Yes: WNL, Supple, Trachea Midline Cardiovascular: Yes: WNL, Regular Rate and Rhythm Respiratory: Yes: WNL, Regular, CTA Bilaterally Gastrointestinal: Yes: WNL, Normal Bowel Sounds Genitourinary: Yes: WNL Musculoskeletal: Yes: WNL Extremities: Yes: WNL Edema: No Integumentary: Yes: WNL Neurological: Yes: WNL, Alert, Oriented ...Motor Strength: WNL Psychiatric: Yes: WNL Labs: CBC, BMP 01/21/17 06:20 INR, PTT INR 1.08 (0.82-1.09) 01/16/17 16:40 Problem List - Problems (1) Seizure Code(s): R56.9 - UNSPECIFIED CONVULSIONS (2) Hypoglycemia Code(s): E16.2 - HYPOGLYCEMIA, UNSPECIFIED (3) Hypothermia Code(s): T68.XXXA - HYPOTHERMIA, INITIAL ENCOUNTER (4) Lactic acidosis Code(s): E87.2 - ACIDOSIS (5) Systemic inflammatory response syndrome (SIRS) Code(s): R65.10 - SIRS OF NON-INFECTIOUS ORIGIN W/O ACUTE ORGAN DYSFUNCTION (6) Diabetes Code(s): E11.9 - TYPE 2 DIABETES MELLITUS WITHOUT COMPLICATIONS Qualifiers: Diabetes mellitus type: type 2 Diabetes mellitus complication status: with hypoglycemia Diabetes mellitus complication detail: without coma (7) Humeral head fracture Code(s): S42.293A - OTH DISP FX OF UPPER END OF UNSP HUMERUS, INIT FOR CLOS FX (8) CAD (coronary artery disease) Code(s): I25.10 - ATHSCL HEART DISEASE OF [place] CORONARY ARTERY W/O ANG PCTRS (9) Asthma Code(s): J45.909 - UNSPECIFIED ASTHMA, UNCOMPLICATED (10) Diabetic autonomic neuropathy associated with diabetes mellitus due to underlying condition Code(s): E08.43 - DIAB DUE TO UNDRL COND W DIABETIC AUTONM (POLY)NEUROPATHY (11) Elevated LFTs Code(s): R79.89 - OTHER SPECIFIED ABNORMAL FINDINGS OF BLOOD CHEMISTRY (12) Lethargy Code(s): R53.83 - OTHER FATIGUE (13) Fever Code(s): R50.9 - FEVER, UNSPECIFIED (14) Fracture of left tibia and fibula Code(s): S82.202A - UNSP FRACTURE OF SHAFT OF LEFT TIBIA, INIT FOR CLOS FX; S82.402A - UNSP FRACTURE OF SHAFT OF LEFT FIBULA, INIT FOR CLOS FX Qualifiers: Encounter type: initial encounter Fracture type: closed Qualified Code(s) : S82.202A - Unspecified fracture of shaft of left tibia, initial encounter for closed fracture (15) Knee fracture, left Code(s): [id number] - (16) Finger pain, left Code(s): M79.645 - PAIN IN LEFT FINGER(S) (17) Anemia Code(s): D64.9 - ANEMIA, UNSPECIFIED (18) History of [place] (myocardial infarction) Code(s): I25.2 - OLD MYOCARDIAL INFARCTION (19) COPD (chronic obstructive pulmonary disease) Code(s): J44.9 - CHRONIC OBSTRUCTIVE PULMONARY DISEASE, UNSPECIFIED (20) Smoker Code(s): F17.200 - NICOTINE DEPENDENCE, UNSPECIFIED, UNCOMPLICATED (21) Essential tremor Code(s): G25.0 - ESSENTIAL TREMOR (22) UTI (urinary tract infection) Code(s): N39.0 - URINARY TRACT INFECTION, SITE NOT SPECIFIED Qualifiers: Urinary tract infection type: site unspecified Hematuria presence: without hematuria Qualified Code(s): N39.0 - Urinary tract infection, site not specified (23) Diarrhea Code(s): R19.7 - DIARRHEA, UNSPECIFIED (24) Facial contusion Code(s): S00.83XA - CONTUSION OF OTHER PART OF HEAD, INITIAL ENCOUNTER Qualifiers: Encounter type: initial encounter Qualified Code(s): S00.83XA - Contusion of other part of head, initial encounter (25) Corneal abrasion, left Code(s): S05.02XA - INJ CONJUNCTIVA AND CORNEAL ABRASION W/O FB, LEFT EYE, INIT Qualifiers: Encounter type: initial encounter Qualified Code(s): S05.02XA - Injury of conjunctiva and corneal abrasion without foreign body, left eye, initial encounter (26) Hypoglycemia due to insulin Code(s): E16.0 - DRUG-INDUCED HYPOGLYCEMIA WITHOUT COMA; T38.3X5A - ADVERSE EFFECT OF INSULIN AND ORAL HYPOGLYCEMIC DRUGS, INIT (27) Closed left hip fracture Code(s): S72.002A - FRACTURE OF UNSP PART OF NECK OF LEFT FEMUR, INIT (28) Diabetic hypoglycemia Code(s): E11.649 - TYPE 2 DIABETES MELLITUS WITH HYPOGLYCEMIA WITHOUT COMA (29) Hypokalemia Code(s): E87.6 - HYPOKALEMIA Assessment/Plan CAD-prior stents 2005 Neg stress MIBI 2013 asymptomatic normal echo and carotids 2017 -resume ASA and Plavix as soon as possible -cont statin HTN-adequately controlled -does not require anti-htn meds at this time HLD -cont statin not on bb due to severe hypoglycemic episodes. stable post op restart asa/plavix as soon as possible and cleared by ortho
--- NOTE | 2017-01-21 10:52 | OP ---
DATE OF OPERATION: 01/21/2017 PREOPERATIVE DIAGNOSIS: Left femoral neck fracture. POSTOPERATIVE DIAGNOSIS: Left femoral neck fracture. PROCEDURE: Left hip cannulated screws. SURGEON: Miguelito Cardoza MD LIVESTOCK FEEDER: None. ANESTHESIA: Dmitry Clayton MD, general anesthesia. DRAINS: None. COMPLICATIONS: None. SPECIMEN: None. BLOOD LOSS: 10 mL. BLOOD GIVEN: None. FLUID REPLACEMENT: 500 mL. INDICATIONS: This patient is a 56-year-old female who is a marginal household ambulator who fell and broke her left hip. She sustained a nondisplaced left femoral neck fracture. After understanding the potential risks, complications, alternatives, and benefits to surgery versus nonsurgical treatment, the patient elected to undergo this procedure. DESCRIPTION OF PROCEDURE: The patient was brought to the operating room. Peripheral IV placed. IV sedation given. Then 1 g of IV Ancef was given. Ample Webril was placed around both ankles and the perineal post. She was placed onto the fracture table in a stable position. X-rays were taken showing anatomic reduction of the femoral neck fracture. The left lower extremity was prepped and draped in the usual sterile fashion. C-arm was used to determine the starting point. Lateral incision was made with a No. 10 scalpel blade. Subcutaneous hemostasis was achieved with a Bovie cautery. Dissection was done down through the lateral fascia. Weitlaner retractor was placed into the wound. A partially threaded guidewire was placed into the femoral neck slightly posterior slightly inferior. X-rays were taken in the AP and lateral planes. Next, the triangulating guide was used to put in 2 other guidewires making it a triangular configuration. X-rays were taken in the AP and lateral planes documenting excellent position of the femoral neck. Next, I just overdrove the lateral cortex and under hand power put in three 80-mm 6.0 cannulated Anis 3 [place] stainless steel screws. Got good fixation. Tension had been taken off. It looked to be in anatomic reduction. The area was copiously irrigated and washed out. The guidewire was removed. The final x-rays were taken. The deep fascia was closed with 0 Vicryl suture, the deep dermal layer closed with 2-0 Vicryl suture, and final skin reapproximation was done with eulogio. The area was then washed and dried, covered with a 6-inch Aquacel dressing. She was taken down out of the fracture table onto the stretcher. There were no complications during the case. She was stable throughout the case. Total operative time was about 40 minutes. She was brought to the regular recovery room in stable condition. MIGUELITO CARDOZA M.D. [id number]
[2017-01-21 11:09] LABS: GLUCOSE,RANDOM 353 mg/dL (74-106)
[2017-01-21] MEDS ORDERED: INSULIN (NOVOLOG) ASPART 100 UNITS/ML 10ML VIAL ONE ×2 (11:16→21:04)
--- NOTE | 2017-01-21 11:19 | PN ---
Progress Note, Physician History of Present Illness: Pt w/o fever, chills, cough, CP, abd pain, N, V, dysuria. Pt just return from post op. - Current Medication List Current Medications: Active Medications Atorvastatin Calcium (Lipitor -) 20 mg PO HS [facility] Duloxetine HCl (Cymbalta -) 90 mg PO DAILY [facility] Heparin Sodium (Porcine) (Heparin -) 5,000 unit SQ BID [facility] Insulin Aspart (Novolog Mix 70/30 Vial) 12 units SQ ACBK [facility] Insulin Aspart (Novolog Vial Sliding Scale -) 1 vial SQ ACHS [facility] PRN Reason: Protocol Morphine Sulfate (Morphine Sulfate) 2 mg IVPUSH Q3H PRN PRN Reason: PAIN Primidone (Mysoline -) 250 mg PO TID [facility]AY[facility] - Objective Vital Signs: Vital Signs Temperature 97.8 F 01/21/17 10:35 Pulse Rate 92 H 01/21/17 10:35 Respiratory Rate 15 01/21/17 10:35 Blood Pressure 104/46 01/21/17 10:35 O2 Sat by Pulse Oximetry (%) 98 01/21/17 10:20 Constitutional: Yes: No Distress, Calm Cardiovascular: Yes: Regular Rate and Rhythm, S1, S2 Respiratory: Yes: Regular, CTA Bilaterally. No: Rales Gastrointestinal: Yes: Normal Bowel Sounds, Soft. No: Tenderness Edema: No Neurological: Yes: Alert, Oriented Labs: CBC, BMP 01/21/17 06:20 01/21/17 06:20 INR, PTT INR 1.08 (0.82-1.09) 01/16/17 16:40 Problem List - Problems (1) Diabetes Code(s): E11.9 - TYPE 2 DIABETES MELLITUS WITHOUT COMPLICATIONS Qualifiers: Diabetes mellitus type: type 2 Diabetes mellitus complication status: with hypoglycemia Diabetes mellitus complication detail: without coma (2) CAD (coronary artery disease) Code(s): I25.10 - ATHSCL HEART DISEASE OF [place] CORONARY ARTERY W/O ANG PCTRS (3) Closed left hip fracture Code(s): S72.002A - FRACTURE OF UNSP PART OF NECK OF LEFT FEMUR, INIT (4) Diabetic hypoglycemia Code(s): E11.649 - TYPE 2 DIABETES MELLITUS WITH HYPOGLYCEMIA WITHOUT COMA (5) Hypokalemia Code(s): E87.6 - HYPOKALEMIA Assessment/Plan Pain control Ortho consult appreciated; s/o ORIF today Cardio consult appreciated, cleared for surgery. AM labs DVT proph Pt was restarted on Insulin 70/30. To monitor BGM.
[2017-01-21] MEDS: INSULIN SLIDING SCALE (NOVOLOG) 1 VIAL SQ SCH ×3 (11:38→21:11)
[2017-01-21] MEDS: HEPARIN NA (PORCINE) 5,000 UNITS/ML 1ML VIAL SQ SCH ×2 (11:46→21:11)
[2017-01-21] MEDS: DULoxetine HCL 30 MG CAPSULE.DR (FP) PO SCH (11:46)
[2017-01-21] MEDS: PRIMIDONE 250 MG TABLET PO SCH ×2 (14:45→21:11)
[2017-01-21] MEDS: morphine SULFATE 4 MG/ML VIAL IVPUSH PRN ×4 (14:45→23:53)
[2017-01-21] MEDS: ATORVASTATIN CA 20 MG TABLET (FP) PO SCH (21:11)
[2017-01-22] MEDS: morphine SULFATE 4 MG/ML VIAL IVPUSH PRN ×3 (03:54→15:51)
[2017-01-22] MEDS ORDERED: PT OWN MED DRAWER 7, Y5N ONE ×4 (05:06→23:18)
[2017-01-22] MEDS: PRIMIDONE 250 MG TABLET PO SCH ×3 (06:05→21:18)
[2017-01-22] MEDS: INSULIN SLIDING SCALE (NOVOLOG) 1 VIAL SQ SCH ×4 (06:38→21:19)
[2017-01-22] MEDS ORDERED: INSULIN (NOVOLOG MIX 70/30) 100 UNITS/ML MDV SQ SCH ×2 (07:00→22:00)
[2017-01-22] MEDS: DULoxetine HCL 30 MG CAPSULE.DR (FP) PO SCH (09:18)
[2017-01-22] MEDS: HEPARIN NA (PORCINE) 5,000 UNITS/ML 1ML VIAL SQ SCH ×2 (09:18→21:18)
[2017-01-22 09:46] LABS: MCH 33.5 pg (25.7-33.7); MCHC 33.4 g/dl (32.0-36.0); MEAN CELL VOLUME 100.3 fl (80-96); MEAN PLT VOLUME 9.4 fl (7.5-11.1); PLATELET COUNT 325 K/MM3 (134-434); RDW 13.3 % (11.6-15.6); WHITE BLOOD COUNT 10.6 K/mm3 (4.0-10.0)
--- NOTE | 2017-01-22 10:15 | PN ---
Progress Note, Physician History of Present Illness: Pt w/o fever, chills, cough, CP, abd pain, dysuria. Pt states that she vomited twice and is nauseated- pt's nurse not aware as pt didn't report it. - Current Medication List Current Medications: Active Medications Atorvastatin Calcium (Lipitor -) 20 mg PO HS [facility] Last Admin: 01/21/17 21:11 Dose: 20 mg Duloxetine HCl (Cymbalta -) 90 mg PO DAILY [facility] Last Admin: 01/22/17 09:18 Dose: 90 mg Heparin Sodium (Porcine) (Heparin -) 5,000 unit SQ BID [facility] Last Admin: 01/22/17 09:18 Dose: 5,000 unit Insulin Aspart (Novolog Vial Sliding Scale -) 1 vial SQ ACHS [facility] PRN Reason: Protocol Last Admin: 01/22/17 06:38 Dose: 10 units Morphine Sulfate (Morphine Sulfate) 2 mg IVPUSH Q3H PRN PRN Reason: PAIN Last Admin: 01/22/17 09:18 Dose: 2 mg Ondansetron HCl (Zofran Injection) 4 mg IVPUSH ONCE ONE Stop: 01/22/17 09:27 Primidone (Mysoline -) 250 mg PO TID [facility] Last Admin: 01/22/17 06:05 Dose: 250 mg - Objective Vital Signs: Vital Signs Temperature 97.9 F 01/22/17 08:00 Pulse Rate 94 H 01/22/17 08:00 Respiratory Rate 18 01/22/17 08:00 Blood Pressure 129/54 01/22/17 08:00 O2 Sat by Pulse Oximetry (%) 99 01/21/17 20:38 Constitutional: Yes: No Distress, Calm Cardiovascular: Yes: Regular Rate and Rhythm, S1, S2 Respiratory: Yes: Regular, CTA Bilaterally Gastrointestinal: Yes: Normal Bowel Sounds, Soft. No: Tenderness Edema: No Neurological: Yes: Alert, Oriented Labs: CBC, BMP 01/22/17 06:00 01/21/17 06:20 INR, PTT INR 1.08 (0.82-1.09) 01/16/17 16:40 Problem List - Problems (1) Diabetes Code(s): E11.9 - TYPE 2 DIABETES MELLITUS WITHOUT COMPLICATIONS Qualifiers: Diabetes mellitus type: type 2 Diabetes mellitus complication status: with hypoglycemia Diabetes mellitus complication detail: without coma (2) CAD (coronary artery disease) Code(s): I25.10 - ATHSCL HEART DISEASE OF [place] CORONARY ARTERY W/O ANG PCTRS (3) Closed left hip fracture Code(s): S72.002A - FRACTURE OF UNSP PART OF NECK OF LEFT FEMUR, INIT (4) Diabetic hypoglycemia Code(s): E11.649 - TYPE 2 DIABETES MELLITUS WITH HYPOGLYCEMIA WITHOUT COMA (5) Hypokalemia Code(s): E87.6 - HYPOKALEMIA Assessment/Plan Pain control. Ortho consult appreciated; s/o ORIF yesterday Cardio consult appreciated. Zofran PRN; to monitor for further episodes of vomiting. Case was d/w pt's nurse. AM labs DVT proph Insulin 70/30 in AM only for now. To monitor BGM.
[2017-01-22] MEDS ORDERED: ONDANSETRON 4 MG/2 ML VIAL IVPUSH ONE (10:45)
--- NOTE | 2017-01-22 10:56 | PN ---
Progress Note (short form) - Note Progress Note: Pt doing wellon POD #1 s/p hip screws. AVSS H/H stable LLE NVI Rec P.T. for ambulation, TTWB if possible for 3 weeks, then PWB. PT with assistance and walker. Can DC/transfer from an ortho pov.
[2017-01-22] MEDS ORDERED: INSULIN (NOVOLOG) ASPART 100 UNITS/ML 10ML VIAL ONE (11:04)
[2017-01-22] MEDS: POLYETHYLENE GLYCOL 3350 119 GM BTL PO SCH (11:07)
[2017-01-22 11:26] LABS: ALBUMIN 2.7 g/dl (3.4-5.0); ALK PHOS 123 U/L (45-117); ANION GAP 19 (8-16); BILIRUBIN,TOTAL 0.4 mg/dL (0.2-1.0); CALCIUM 8.2 mg/dL (8.5-10.1); CO2 18 mmol/L (21-32); CREATININE 0.8 mg/dL (0.55-1.02); GLUCOSE,RANDOM 276 mg/dL (74-106); SGOT/AST 13 U/L (15-37); SGPT/ALT 19 U/L (12-78); TOT PROT 6.3 g/dl (6.4-8.2)
[2017-01-22] MEDS ORDERED: ONDANSETRON 4 MG/2 ML VIAL IVPUSH PRN ×2 (12:23→13:39)
--- NOTE | 2017-01-22 13:06 | PN ---
Progress Note (short form) - Note Progress Note: ANESTHESIOLOGY POST-OP CHECK 56F S/P left hip cannulated screws under general anesthesia POD #1. C/o nausea and dec appetite. Pain 8/10 down to 5/10 with pain meds. Vital Signs Temperature 97.9 F 01/22/17 08:00 Pulse Rate 94 H 01/22/17 08:00 Respiratory Rate 18 01/22/17 08:00 Blood Pressure 129/54 01/22/17 08:00 O2 Sat by Pulse Oximetry (%) 96 01/22/17 09:00 Active Medications Atorvastatin Calcium (Lipitor -) 20 mg PO HS [facility] Last Admin: 01/21/17 21:11 Dose: 20 mg Duloxetine HCl (Cymbalta -) 90 mg PO DAILY [facility] Last Admin: 01/22/17 09:18 Dose: 90 mg Heparin Sodium (Porcine) (Heparin -) 5,000 unit SQ BID [facility] Last Admin: 01/22/17 09:18 Dose: 5,000 unit Insulin Aspart (Novolog Vial Sliding Scale -) 1 vial SQ ACHS [facility] PRN Reason: Protocol Last Admin: 01/22/17 11:11 Dose: 6 units Insulin Aspart (Novolog Mix 70/30 Vial) 4 units SQ HS [facility] Insulin Aspart (Novolog Mix 70/30 Vial) 18 units SQ ACBK [facility] Morphine Sulfate (Morphine Sulfate) 2 mg IVPUSH Q3H PRN PRN Reason: PAIN Last Admin: 01/22/17 09:18 Dose: 2 mg Ondansetron HCl (Zofran Injection) 4 mg IVPUSH Q6H PRN PRN Reason: NAUSEA Polyethylene Glycol (Miralax (For Daily Use) -) 17 gm PO DAILY [facility] Last Admin: 01/22/17 11:07 Dose: 17 grams Primidone (Mysoline -) 250 mg PO TID [facility] Last Admin: 01/22/17 06:05 Dose: 250 mg Gen: Awake ,alert Pt with post-op N/V. Ordered zofran and communicated to nurse. Pain controlled. Continue management as per primary team.
--- NOTE | 2017-01-22 14:41 | PN ---
Progress Note (short form) - Note Progress Note: ID Consult dictated RLL pneumonia Possible sepsis secondary to pneumonia UTI Azotemia Uncontrolled DM
--- NOTE | 2017-01-22 15:09 | CONS ---
INFECTIOUS DISEASE CONSULTATION DATE OF CONSULTATION: DATE OF DICTATION: 01/22/2017 REASON FOR CONSULTATION: The patient is a 56-year-old diabetic female who was evaluated for pneumonia. HISTORY OF PRESENT ILLNESS: She was admitted from the skilled nursing with failure to thrive. According to the note, she had had worsening oral intake over the past several days to weeks. She was noted at the skilled nursing to have elevated blood sugars as well as worsening azotemia and leukocytosis. She had apparently been treated with ciprofloxacin for a urinary tract infection at the skilled nursing. She was evaluated in the emergency room where her blood sugar was over 600. Chest x-ray shows a right lower lobe pneumonia. She is awake and alert. She denies any chest pain, shortness of breath, cough, or sputum production. She denies any dysuria or hematuria. PAST MEDICAL HISTORY: Positive for diabetes mellitus, coronary artery disease, congestive heart failure, hypertension, chronic kidney disease, hyperlipidemia, pulmonary hypertension, asthma, osteoarthritis, hypothyroidism, history of methicillin-sensitive Staphylococcus aureus bacteremia in May of 2015. ALLERGIES: KAYEXALATE. MEDICATIONS: Plavix, Synthroid, Namenda, Norvasc, Coreg, Colace, Levemir, aspirin, hydrochlorothiazide, insulin. SOCIAL HISTORY: She is a skilled nursing resident. She is a nonsmoker, nondrinker. SYSTEMS REVIEW: Neurologic: No loss of consciousness, seizure activity, or focal weakness. Cardiac: Negative chest pain and palpitations. Respiratory: As per HPI. Gastrointestinal: Negative vomiting or diarrhea. Genitourinary: Positive for urinary tract infection. LABORATORY DATA: White count on admission 15.1, hematocrit 26.6, platelet count 152. BUN 35, creatinine 3.5, glucose 407. Urinalysis: White cells 5-10. Chest x-ray shows a right lower lobe infiltrate. PHYSICAL EXAMINATION: General: She is awake and alert. She is not acutely toxic appearing. Vital Signs: Temperature 97.8; blood pressure 145/70; pulse 67, regular; respirations 18 per minute. HEENT: Sclerae are anicteric. Heart: Sounds S1, S2 with a 2/6 pansystolic murmur. Lungs: Scattered rhonchi bilaterally. Abdomen: Obese, soft. No tenderness elicited. No mass, rebound, or rigidity. Extremities: Positive for edema. IMPRESSION: 1. Right lower lobe pneumonia. 2. Possible sepsis secondary to pneumonia. 3. Urinary tract infection. 4. Azotemia. 5. Uncontrolled diabetes mellitus. PLAN: Pending cultures, empiric antibiotic coverage with ceftriaxone and Zithromax. I will obtain sputum culture, urine legionella and pneumococcal antigen. Will follow. Thank you for the kind referral. MARIAH SYLVESTER M.D. [id number]
[2017-01-22] MEDS: ATORVASTATIN CA 20 MG TABLET (FP) PO SCH (21:18)
[2017-01-23] MEDS: morphine SULFATE 4 MG/ML VIAL IVPUSH PRN (01:11)
[2017-01-23] MEDS: PRIMIDONE 250 MG TABLET PO SCH ×3 (06:06→21:16)
[2017-01-23] MEDS: INSULIN (NOVOLOG MIX 70/30) 100 UNITS/ML MDV SQ SCH (06:37)
[2017-01-23] MEDS: INSULIN SLIDING SCALE (NOVOLOG) 1 VIAL SQ SCH ×4 (06:37→21:15)
[2017-01-23] MEDS ORDERED: INSULIN (NOVOLOG) ASPART 100 UNITS/ML 10ML VIAL ONE ×2 (06:42→21:03)
[2017-01-23 07:02] LABS: MCH 33.3 pg (25.7-33.7); MCHC 33.2 g/dl (32.0-36.0); MEAN CELL VOLUME 100.3 fl (80-96); MEAN PLT VOLUME 9.1 fl (7.5-11.1); PLATELET COUNT 302 K/MM3 (134-434); RDW 13.4 % (11.6-15.6); WHITE BLOOD COUNT 10.4 K/mm3 (4.0-10.0)
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
[2017-01-23 07:58] LABS: ALBUMIN 2.6 g/dl (3.4-5.0); ANION GAP 23 (8-16); CALCIUM 8.2 mg/dL (8.5-10.1); CO2 13 mmol/L (21-32)
[2017-01-23 08:00] LABS: ALK PHOS 112 U/L (45-117); BILIRUBIN,TOTAL 0.5 mg/dL (0.2-1.0); CREATININE 0.7 mg/dL (0.55-1.02); SGOT/AST 12 U/L (15-37); SGPT/ALT 14 U/L (12-78)
[2017-01-23 08:23] LABS: GLUCOSE,RANDOM 366 mg/dL (74-106)
[2017-01-23] MEDS ORDERED: SODIUM POLYSTYRENE SULFONATE 15 GM/60 ML BOTTLE PO ONE (10:28)
--- NOTE | 2017-01-23 10:29 | PN ---
Progress Note, Physician History of Present Illness: Pt w/o fever, chills, cough, CP, abd pain, dysuria. Pt still nauseated, no V; decreased PO intake.. - Current Medication List Current Medications: Active Medications Atorvastatin Calcium (Lipitor -) 20 mg PO HS [facility] Last Admin: 01/22/17 21:18 Dose: 20 mg Duloxetine HCl (Cymbalta -) 90 mg PO DAILY [facility] Last Admin: 01/22/17 09:18 Dose: 90 mg Heparin Sodium (Porcine) (Heparin -) 5,000 unit SQ BID [facility] Last Admin: 01/22/17 21:18 Dose: 5,000 unit Hydromorphone HCl (Dilaudid -) 2 mg PO Q6H PRN PRN Reason: PAIN Insulin Aspart (Novolog Vial Sliding Scale -) 1 vial SQ ACHS [facility] PRN Reason: Protocol Last Admin: 01/23/17 06:37 Dose: 8 units Insulin Aspart (Novolog Mix 70/30 Vial) 18 units SQ ACBK [facility] Last Admin: 01/23/17 06:37 Dose: 18 units Lisinopril (Prinivil) 2.5 mg PO DAILY [facility] Ondansetron HCl (Zofran -) 4 mg PO TID ONE Stop: 01/23/17 10:28 Polyethylene Glycol (Miralax (For Daily Use) -) 17 gm PO DAILY [facility] Last Admin: 01/22/17 11:07 Dose: 17 grams Primidone (Mysoline -) 250 mg PO TID [facility] Last Admin: 01/23/17 06:06 Dose: 250 mg Sodium Polystyrene Sulfonate (Kayexalate -) 15 gm PO ONCE ONE Stop: 01/23/17 10:29 - Objective Vital Signs: Vital Signs Temperature 98.3 F 01/23/17 08:43 Pulse Rate 97 H 01/23/17 08:43 Respiratory Rate 18 01/23/17 08:43 Blood Pressure 134/87 01/23/17 08:43 O2 Sat by Pulse Oximetry (%) 96 01/22/17 21:00 Constitutional: Yes: No Distress, Calm Cardiovascular: Yes: Regular Rate and Rhythm, S1, S2 Respiratory: Yes: Regular, CTA Bilaterally. No: Rales Gastrointestinal: Yes: Normal Bowel Sounds, Soft. No: Tenderness Edema: No Neurological: Yes: Alert, Oriented Labs: CBC, BMP 01/23/17 06:10 01/23/17 06:10 INR, PTT INR 1.08 (0.82-1.09) 01/16/17 16:40 Problem List - Problems (1) Diabetes Code(s): E11.9 - TYPE 2 DIABETES MELLITUS WITHOUT COMPLICATIONS Qualifiers: Diabetes mellitus type: type 2 Diabetes mellitus complication status: with hypoglycemia Diabetes mellitus complication detail: without coma (2) CAD (coronary artery disease) Code(s): I25.10 - ATHSCL HEART DISEASE OF [place] CORONARY ARTERY W/O ANG PCTRS (3) Closed left hip fracture Code(s): S72.002A - FRACTURE OF UNSP PART OF NECK OF LEFT FEMUR, INIT (4) Diabetic hypoglycemia Code(s): E11.649 - TYPE 2 DIABETES MELLITUS WITH HYPOGLYCEMIA WITHOUT COMA (5) Hypokalemia Code(s): E87.6 - HYPOKALEMIA (6) Hyperkalemia Code(s): E87.5 - HYPERKALEMIA Assessment/Plan Pain control. Ortho consult appreciated; s/o ORIF of left hip. Cardio consult appreciated. Trial of Zofran TAYLA; to monitor for further episodes of vomiting. Pt used IVP Morphine 4 times in the last 24 hours. Morphine might contibute to nausea. Change Pain medication to PO. Kayexalate DVT proph Insulin 70/30 in AM only for now. To monitor BGM. Case was d/w pt's nurse. AM labs
[2017-01-23] MEDS ORDERED: PT OWN MED DRAWER 7, Y5N ONE ×2 (10:44→21:04)
[2017-01-23] MEDS: ONDANSETRON 4 MG TABLET PO SCH ×2 (11:00→21:16)
[2017-01-23] MEDS: HYDROmorphone HCL 2 MG TABLET PO PRN ×2 (11:00→18:00)
[2017-01-23] MEDS: LISINOPRIL 5 MG TABLET (FP) PO SCH (11:04)
[2017-01-23] MEDS: DULoxetine HCL 30 MG CAPSULE.DR (FP) PO SCH (11:04)
[2017-01-23] MEDS: HEPARIN NA (PORCINE) 5,000 UNITS/ML 1ML VIAL SQ SCH ×2 (11:05→21:15)
[2017-01-23] MEDS: POLYETHYLENE GLYCOL 3350 119 GM BTL PO SCH (11:09)
--- NOTE | 2017-01-23 15:14 | PN ---
Progress Note, Physician History of Present Illness: 56 year old woman with a history of HTN, HLD, DMII, multivessel CAD s/p MARGARITO x 3 2005 LAD/RCA/LCx, mult episodes of hypoglycemia in the past admitted with a L hip fracture planned for likely surgery. Pt was seen and examined today in [facility]. States she has significant pain on and off from her hip fracture. Denies any chest pain or sob episodes recently. states that prior to her injury she would walk a lot without limitation to her exercise tolerance and without chest pain or sob either with rest or with exertion. Her last nuclear stress test was 2013 and showed no ischemia and last echo 04/2016 was reportedly overall normal. No palpitations, pnd, orthopnea, LE edema. no syncope or near syncope. - Current Medication List Current Medications: Active Medications Atorvastatin Calcium (Lipitor -) 20 mg PO HS [facility] Last Admin: 01/22/17 21:18 Dose: 20 mg Duloxetine HCl (Cymbalta -) 90 mg PO DAILY [facility] Last Admin: 01/23/17 11:04 Dose: 90 mg Heparin Sodium (Porcine) (Heparin -) 5,000 unit SQ BID [facility] Last Admin: 01/23/17 11:05 Dose: 5,000 unit Hydromorphone HCl (Dilaudid -) 2 mg PO Q6H PRN PRN Reason: PAIN Last Admin: 01/23/17 11:00 Dose: 2 mg Insulin Aspart (Novolog Vial Sliding Scale -) 1 vial SQ ACHS [facility] PRN Reason: Protocol Last Admin: 01/23/17 12:27 Dose: Not Given Insulin Aspart (Novolog Mix 70/30 Vial) 18 units SQ ACBK [facility] Last Admin: 01/23/17 06:37 Dose: 18 units Lisinopril (Prinivil) 2.5 mg PO DAILY [facility] Last Admin: 01/23/17 11:04 Dose: 2.5 mg Ondansetron HCl (Zofran -) 4 mg PO TID [facility] Last Admin: 01/23/17 11:00 Dose: 4 mg Polyethylene Glycol (Miralax (For Daily Use) -) 17 gm PO DAILY [facility] Last Admin: 01/23/17 11:09 Dose: 17 grams Primidone (Mysoline -) 250 mg PO TID [facility] Last Admin: 01/23/17 13:48 Dose: 250 mg - Objective Vital Signs: Vital Signs Temperature 97.6 F 11/10/17 14:55 Pulse Rate 81 01/23/17 14:55 Respiratory Rate 18 01/23/17 14:55 Blood Pressure 135/61 01/23/17 14:55 O2 Sat by Pulse Oximetry (%) 96 01/23/17 09:00 Eyes: Yes: WNL, Conjunctiva Clear, EOM Intact HENT: Yes: WNL, Atraumatic, Normocephalic Neck: Yes: WNL, Supple, Trachea Midline Cardiovascular: Yes: WNL, Regular Rate and Rhythm Respiratory: Yes: WNL, Regular, CTA Bilaterally Gastrointestinal: Yes: WNL, Normal Bowel Sounds Genitourinary: Yes: WNL Musculoskeletal: Yes: WNL Extremities: Yes: WNL Edema: No Integumentary: Yes: WNL Neurological: Yes: WNL, Alert, Oriented ...Motor Strength: WNL Psychiatric: Yes: WNL Labs: CBC, BMP 01/23/17 06:10 01/23/17 06:10 INR, PTT INR 1.08 (0.82-1.09) 01/16/17 16:40 Problem List - Problems (1) Seizure Code(s): R56.9 - UNSPECIFIED CONVULSIONS (2) Hypoglycemia Code(s): E16.2 - HYPOGLYCEMIA, UNSPECIFIED (3) Hypothermia Code(s): T68.XXXA - HYPOTHERMIA, INITIAL ENCOUNTER (4) Lactic acidosis Code(s): E87.2 - ACIDOSIS (5) Systemic inflammatory response syndrome (SIRS) Code(s): R65.10 - SIRS OF NON-INFECTIOUS ORIGIN W/O ACUTE ORGAN DYSFUNCTION (6) Diabetes Code(s): E11.9 - TYPE 2 DIABETES MELLITUS WITHOUT COMPLICATIONS Qualifiers: Diabetes mellitus type: type 2 Diabetes mellitus complication status: with hypoglycemia Diabetes mellitus complication detail: without coma (7) Humeral head fracture Code(s): S42.293A - OTH DISP FX OF UPPER END OF UNSP HUMERUS, INIT FOR CLOS FX (8) CAD (coronary artery disease) Code(s): I25.10 - ATHSCL HEART DISEASE OF [place] CORONARY ARTERY W/O ANG PCTRS (9) Asthma Code(s): J45.909 - UNSPECIFIED ASTHMA, UNCOMPLICATED (10) Diabetic autonomic neuropathy associated with diabetes mellitus due to underlying condition Code(s): E08.43 - DIAB DUE TO UNDRL COND W DIABETIC AUTONM (POLY)NEUROPATHY (11) Elevated LFTs Code(s): R79.89 - OTHER SPECIFIED ABNORMAL FINDINGS OF BLOOD CHEMISTRY (12) Lethargy Code(s): R53.83 - OTHER FATIGUE (13) Fever Code(s): R50.9 - FEVER, UNSPECIFIED (14) Fracture of left tibia and fibula Code(s): S82.202A - UNSP FRACTURE OF SHAFT OF LEFT TIBIA, INIT FOR CLOS FX; S82.402A - UNSP FRACTURE OF SHAFT OF LEFT FIBULA, INIT FOR CLOS FX Qualifiers: Encounter type: initial encounter Fracture type: closed Qualified Code(s) : S82.202A - Unspecified fracture of shaft of left tibia, initial encounter for closed fracture (15) Knee fracture, left Code(s): [id number] - (16) Finger pain, left Code(s): M79.645 - PAIN IN LEFT FINGER(S) (17) Anemia Code(s): D64.9 - ANEMIA, UNSPECIFIED (18) History of [place] (myocardial infarction) Code(s): I25.2 - OLD MYOCARDIAL INFARCTION (19) COPD (chronic obstructive pulmonary disease) Code(s): J44.9 - CHRONIC OBSTRUCTIVE PULMONARY DISEASE, UNSPECIFIED (20) Smoker Code(s): F17.200 - NICOTINE DEPENDENCE, UNSPECIFIED, UNCOMPLICATED (21) Essential tremor Code(s): G25.0 - ESSENTIAL TREMOR (22) UTI (urinary tract infection) Code(s): N39.0 - URINARY TRACT INFECTION, SITE NOT SPECIFIED Qualifiers: Urinary tract infection type: site unspecified Hematuria presence: without hematuria Qualified Code(s): N39.0 - Urinary tract infection, site not specified (23) Diarrhea Code(s): R19.7 - DIARRHEA, UNSPECIFIED (24) Facial contusion Code(s): S00.83XA - CONTUSION OF OTHER PART OF HEAD, INITIAL ENCOUNTER Qualifiers: Encounter type: initial encounter Qualified Code(s): S00.83XA - Contusion of other part of head, initial encounter (25) Corneal abrasion, left Code(s): S05.02XA - INJ CONJUNCTIVA AND CORNEAL ABRASION W/O FB, LEFT EYE, INIT Qualifiers: Encounter type: initial encounter Qualified Code(s): S05.02XA - Injury of conjunctiva and corneal abrasion without foreign body, left eye, initial encounter (26) Hypoglycemia due to insulin Code(s): E16.0 - DRUG-INDUCED HYPOGLYCEMIA WITHOUT COMA; T38.3X5A - ADVERSE EFFECT OF INSULIN AND ORAL HYPOGLYCEMIC DRUGS, INIT (27) Closed left hip fracture Code(s): S72.002A - FRACTURE OF UNSP PART OF NECK OF LEFT FEMUR, INIT (28) Diabetic hypoglycemia Code(s): E11.649 - TYPE 2 DIABETES MELLITUS WITH HYPOGLYCEMIA WITHOUT COMA (29) Hypokalemia Code(s): E87.6 - HYPOKALEMIA Assessment/Plan CAD-prior stents 2005 Neg stress MIBI 2013 asymptomatic normal echo and carotids 2017 -resume ASA and Plavix as soon as possible -cont statin HTN-adequately controlled -does not require anti-htn meds at this time HLD -cont statin not on bb due to severe hypoglycemic episodes. stable post op restart asa/plavix as soon as possible and cleared by ortho
[2017-01-23] MEDS: ACETAMINOPHEN 325 MG TABLET (FP) PO PRN (20:40)
[2017-01-23] MEDS: ATORVASTATIN CA 20 MG TABLET (FP) PO SCH (21:16)
[2017-01-24] MEDS ORDERED: PT OWN MED DRAWER 7, Y5N ONE ×2 (06:07→13:19)
[2017-01-24] MEDS: PRIMIDONE 250 MG TABLET PO SCH ×3 (06:14→21:26)
[2017-01-24] MEDS: INSULIN (NOVOLOG MIX 70/30) 100 UNITS/ML MDV SQ SCH (06:14)
[2017-01-24] MEDS: HYDROmorphone HCL 2 MG TABLET PO PRN ×3 (06:14→18:44)
[2017-01-24] MEDS: ONDANSETRON 4 MG TABLET PO SCH ×3 (06:14→21:26)
[2017-01-24] MEDS: INSULIN SLIDING SCALE (NOVOLOG) 1 VIAL SQ SCH ×4 (06:15→21:26)
[2017-01-24 08:31] LABS: MCH 33.1 pg (25.7-33.7); MCHC 33.2 g/dl (32.0-36.0); MEAN PLT VOLUME 8.7 fl (7.5-11.1); PLATELET COUNT 321 K/MM3 (134-434); RDW 13.2 % (11.6-15.6); WHITE BLOOD COUNT 7.7 K/mm3 (4.0-10.0)
[2017-01-24 08:54] LABS: ANION GAP 18 (8-16); CO2 18 mmol/L (21-32); CREATININE 0.7 mg/dL (0.55-1.02); GLUCOSE,RANDOM 206 mg/dL (74-106)
--- NOTE | 2017-01-24 08:56 | PN ---
Progress Note, Physician Chief Complaint: no chest pain or SOB - Current Medication List Current Medications: Active Medications Acetaminophen (Tylenol -) 650 mg PO Q6H PRN PRN Reason: PAIN Last Admin: 01/23/17 20:40 Dose: 650 mg Atorvastatin Calcium (Lipitor -) 20 mg PO HS [facility] Last Admin: 01/23/17 21:16 Dose: 20 mg Duloxetine HCl (Cymbalta -) 90 mg PO DAILY [facility] Last Admin: 01/23/17 11:04 Dose: 90 mg Heparin Sodium (Porcine) (Heparin -) 5,000 unit SQ BID [facility] Last Admin: 01/23/17 21:15 Dose: 5,000 unit Hydromorphone HCl (Dilaudid -) 2 mg PO Q6H PRN PRN Reason: PAIN Last Admin: 01/24/17 06:14 Dose: 2 mg Insulin Aspart (Novolog Vial Sliding Scale -) 1 vial SQ ACHS [facility] PRN Reason: Protocol Last Admin: 01/24/17 06:15 Dose: 6 units Insulin Aspart (Novolog Mix 70/30 Vial) 18 units SQ ACBK [facility] Last Admin: 01/24/17 06:14 Dose: 18 units Lisinopril (Prinivil) 2.5 mg PO DAILY [facility] Last Admin: 01/23/17 11:04 Dose: 2.5 mg Ondansetron HCl (Zofran -) 4 mg PO TID [facility] Last Admin: 01/24/17 06:14 Dose: 4 mg Polyethylene Glycol (Miralax (For Daily Use) -) 17 gm PO DAILY [facility] Last Admin: 01/23/17 11:09 Dose: 17 grams Primidone (Mysoline -) 250 mg PO TID [facility] Last Admin: 01/24/17 06:14 Dose: 250 mg - Objective Vital Signs: Vital Signs Temperature 98.7 F 01/24/17 05:43 Pulse Rate 88 01/24/17 05:43 Respiratory Rate 18 01/24/17 05:43 Blood Pressure 115/58 01/24/17 05:43 O2 Sat by Pulse Oximetry (%) 96 01/23/17 09:00 Constitutional: Yes: No Distress Cardiovascular: Yes: Regular Rate and Rhythm Respiratory: Yes: CTA Bilaterally Gastrointestinal: Yes: Soft Edema: No Neurological: Yes: Alert, Oriented, Tremors Labs: CBC, BMP 01/24/17 07:00 INR, PTT INR 1.08 (0.82-1.09) 01/16/17 16:40 Laboratory Tests 01/24/17 01/24/17 07:00 07:00 WBC 7.7 Hgb 10.2 L Plt Count 321 Sodium Pending Potassium Pending Chloride Pending Carbon Dioxide Pending Anion Gap Pending BUN Pending Creatinine Pending Assessment/Plan Assessment/Plan CAD-prior stents 2005 Neg stress MIBI 2013 asymptomatic normal echo and carotids 2016 -resume ASA and Plavix as soon as possible -cont statin HTN-adequately controlled -does not require anti-htn meds at this time HLD -cont statin not on bb due to severe hypoglycemic episodes. stable post op restart asa/plavix as soon as possible and cleared by ortho
[2017-01-24] MEDS: LISINOPRIL 5 MG TABLET (FP) PO SCH (10:02)
[2017-01-24] MEDS: POLYETHYLENE GLYCOL 3350 119 GM BTL PO SCH ×2 (10:02→10:14)
[2017-01-24] MEDS: HEPARIN NA (PORCINE) 5,000 UNITS/ML 1ML VIAL SQ SCH ×2 (10:03→21:26)
[2017-01-24] MEDS: DULoxetine HCL 30 MG CAPSULE.DR (FP) PO SCH (10:03)
[2017-01-24] MEDS ORDERED: INSULIN (NOVOLOG) ASPART 100 UNITS/ML 10ML VIAL ONE (11:47)
--- NOTE | 2017-01-24 13:03 | PN ---
Progress Note, Physician History of Present Illness: Pt w/o fever, chills, cough, CP, abd pain, dysuria. Pt nausea improved, no V; better PO intake.. - Current Medication List Current Medications: Active Medications Acetaminophen (Tylenol -) 650 mg PO Q6H PRN PRN Reason: PAIN Last Admin: 01/23/17 20:40 Dose: 650 mg Atorvastatin Calcium (Lipitor -) 20 mg PO HS [facility] Last Admin: 01/23/17 21:16 Dose: 20 mg Duloxetine HCl (Cymbalta -) 90 mg PO DAILY [facility] Last Admin: 01/24/17 10:03 Dose: 90 mg Heparin Sodium (Porcine) (Heparin -) 5,000 unit SQ BID [facility] Last Admin: 01/24/17 10:03 Dose: 5,000 unit Hydromorphone HCl (Dilaudid -) 2 mg PO Q6H PRN PRN Reason: PAIN Last Admin: 01/24/17 11:49 Dose: 2 mg Insulin Aspart (Novolog Vial Sliding Scale -) 1 vial SQ ACHS [facility] PRN Reason: Protocol Last Admin: 01/24/17 11:49 Dose: 8 units Insulin Aspart (Novolog Mix 70/30 Vial) 18 units SQ ACBK [facility] Last Admin: 01/24/17 06:14 Dose: 18 units Lisinopril (Prinivil) 2.5 mg PO DAILY [facility] Last Admin: 01/24/17 10:02 Dose: 2.5 mg Ondansetron HCl (Zofran -) 4 mg PO TID [facility] Last Admin: 01/24/17 06:14 Dose: 4 mg Polyethylene Glycol (Miralax (For Daily Use) -) 17 gm PO DAILY [facility] Last Admin: 01/24/17 10:14 Dose: Not Given Primidone (Mysoline -) 250 mg PO TID [facility] Last Admin: 01/24/17 06:14 Dose: 250 mg - Objective Vital Signs: Vital Signs Temperature 98.7 F 01/24/17 09:00 Pulse Rate 88 01/24/17 09:00 Respiratory Rate 18 01/24/17 09:00 Blood Pressure 120/70 01/24/17 09:00 O2 Sat by Pulse Oximetry (%) 97 01/24/17 09:00 Constitutional: Yes: No Distress, Calm Cardiovascular: Yes: Regular Rate and Rhythm, S1, S2 Respiratory: Yes: Regular, CTA Bilaterally Gastrointestinal: Yes: Normal Bowel Sounds, Soft. No: Tenderness Edema: No Neurological: Yes: Alert, Oriented Labs: CBC, BMP 01/24/17 07:00 01/24/17 07:00 INR, PTT INR 1.08 (0.82-1.09) 01/16/17 16:40 Problem List - Problems (1) Diabetes Code(s): E11.9 - TYPE 2 DIABETES MELLITUS WITHOUT COMPLICATIONS Qualifiers: Diabetes mellitus type: type 2 Diabetes mellitus complication status: with hypoglycemia Diabetes mellitus complication detail: without coma (2) CAD (coronary artery disease) Code(s): I25.10 - ATHSCL HEART DISEASE OF [place] CORONARY ARTERY W/O ANG PCTRS (3) Closed left hip fracture Code(s): S72.002A - FRACTURE OF UNSP PART OF NECK OF LEFT FEMUR, INIT (4) Diabetic hypoglycemia Code(s): E11.649 - TYPE 2 DIABETES MELLITUS WITH HYPOGLYCEMIA WITHOUT COMA (5) Hypokalemia Code(s): E87.6 - HYPOKALEMIA (6) Hyperkalemia Code(s): E87.5 - HYPERKALEMIA Assessment/Plan Pain control. Ortho consult appreciated; s/o ORIF of left hip. Cardio consult appreciated. Trial of Zofran TAYLA; to monitor for further episodes of vomiting. Pt used IVP Morphine 4 times in the last 24 hours. Morphine might contibute to nausea. Change Pain medication to PO -per pt is better. Kayexalate DVT proph Insulin 70/30 in AM only for now. To monitor BGM. Case was d/w pt's nurse. AM labs
[2017-01-24] MEDS: ATORVASTATIN CA 20 MG TABLET (FP) PO SCH (21:26)
[2017-01-25] MEDS: INSULIN SLIDING SCALE (NOVOLOG) 1 VIAL SQ SCH ×4 (06:34→21:40)
[2017-01-25] MEDS: INSULIN (NOVOLOG MIX 70/30) 100 UNITS/ML MDV SQ SCH (06:34)
[2017-01-25] MEDS: PRIMIDONE 250 MG TABLET PO SCH ×3 (06:34→21:40)
[2017-01-25] MEDS: ONDANSETRON 4 MG TABLET PO SCH ×3 (06:34→21:40)
[2017-01-25] MEDS ORDERED: INSULIN (NOVOLOG) ASPART 100 UNITS/ML 10ML VIAL ONE ×3 (06:58→21:19)
[2017-01-25] MEDS: HEPARIN NA (PORCINE) 5,000 UNITS/ML 1ML VIAL SQ SCH ×2 (09:25→21:40)
[2017-01-25] MEDS: DULoxetine HCL 30 MG CAPSULE.DR (FP) PO SCH (09:25)
[2017-01-25] MEDS: POLYETHYLENE GLYCOL 3350 119 GM BTL PO SCH (09:29)
[2017-01-25] MEDS: LISINOPRIL 5 MG TABLET (FP) PO SCH (09:30)
[2017-01-25] MEDS: HYDROmorphone HCL 2 MG TABLET PO PRN ×3 (09:31→23:28)
[2017-01-25] MEDS ORDERED: INSULIN (NOVOLOG MIX 70/30) 100 UNITS/ML MDV SQ SCH ×2 (10:00→12:31)
[2017-01-25 10:09] LABS: CREATININE 0.7 mg/dL (0.55-1.02); GLUCOSE,RANDOM 219 mg/dL (74-106)
[2017-01-25 10:20] LABS: ANION GAP 8 (8-16); CALCIUM 8.1 mg/dL (8.5-10.1); CO2 26 mmol/L (21-32)
[2017-01-25] MEDS: ASPIRIN 81 MG CHEWABLE TABLETS PO SCH (11:52)
--- NOTE | 2017-01-25 12:11 | PN ---
Progress Note, Physician History of Present Illness: Pt w/o fever, chills, cough, CP, abd pain, dysuria. Pt nausea improved, no V; better PO intake. - Current Medication List Current Medications: Active Medications Acetaminophen (Tylenol -) 650 mg PO Q6H PRN PRN Reason: PAIN Last Admin: 01/23/17 20:40 Dose: 650 mg Aspirin (Asa -) 81 mg PO DAILY [facility] Last Admin: 01/25/17 11:52 Dose: 81 mg Atorvastatin Calcium (Lipitor -) 20 mg PO HS [facility] Last Admin: 01/24/17 21:26 Dose: 20 mg Duloxetine HCl (Cymbalta -) 90 mg PO DAILY [facility] Last Admin: 01/25/17 09:25 Dose: 90 mg Heparin Sodium (Porcine) (Heparin -) 5,000 unit SQ BID [facility] Last Admin: 01/25/17 09:25 Dose: 5,000 unit Hydromorphone HCl (Dilaudid -) 2 mg PO Q6H PRN PRN Reason: PAIN Last Admin: 01/25/17 09:31 Dose: 2 mg Insulin Aspart (Novolog Vial Sliding Scale -) 1 vial SQ ACHS [facility] PRN Reason: Protocol Last Admin: 01/25/17 11:51 Dose: 4 units Insulin Aspart (Novolog Mix 70/30 Vial) 18 units SQ ACBK [facility] Last Admin: 01/25/17 06:34 Dose: 18 units Insulin Aspart (Novolog Mix 70/30 Vial) 5 units SQ DAILY [facility] Last Admin: 01/25/17 09:26 Dose: 5 units Lisinopril (Prinivil) 2.5 mg PO DAILY [facility] Last Admin: 01/25/17 09:30 Dose: 2.5 mg Ondansetron HCl (Zofran -) 4 mg PO TID [facility] Last Admin: 01/25/17 06:34 Dose: 4 mg Polyethylene Glycol (Miralax (For Daily Use) -) 17 gm PO DAILY [facility] Last Admin: 01/25/17 09:29 Dose: Not Given Primidone (Mysoline -) 250 mg PO TID [facility] Last Admin: 01/25/17 06:34 Dose: 250 mg - Objective Vital Signs: Vital Signs Temperature 96.8 F L 01/25/17 05:42 Pulse Rate 86 01/25/17 05:42 Respiratory Rate 20 01/25/17 05:42 Blood Pressure 118/54 01/25/17 05:42 O2 Sat by Pulse Oximetry (%) 97 01/24/17 21:00 Constitutional: Yes: No Distress, Calm Cardiovascular: Yes: Regular Rate and Rhythm, S1, S2 Respiratory: Yes: Regular, CTA Bilaterally. No: Rales Gastrointestinal: Yes: Normal Bowel Sounds, Soft. No: Tenderness Edema: No Labs: CBC, BMP 01/24/17 07:00 01/25/17 09:00 INR, PTT INR 1.08 (0.82-1.09) 01/16/17 16:40 Problem List - Problems (1) Closed left hip fracture Code(s): S72.002A - FRACTURE OF UNSP PART OF NECK OF LEFT FEMUR, INIT (2) Diabetes Code(s): E11.9 - TYPE 2 DIABETES MELLITUS WITHOUT COMPLICATIONS Qualifiers: Diabetes mellitus type: type 2 Diabetes mellitus complication status: with hypoglycemia Diabetes mellitus complication detail: without coma (3) CAD (coronary artery disease) Code(s): I25.10 - ATHSCL HEART DISEASE OF [place] CORONARY ARTERY W/O ANG PCTRS (4) Diabetic hypoglycemia Code(s): E11.649 - TYPE 2 DIABETES MELLITUS WITH HYPOGLYCEMIA WITHOUT COMA (5) Hypokalemia Code(s): E87.6 - HYPOKALEMIA (6) Hyperkalemia Code(s): E87.5 - HYPERKALEMIA Assessment/Plan Pain control. Ortho consult appreciated; s/o ORIF of left hip. Cardio consult appreciated. Trial of Zofran TAYLA improved PO intake, no nausea; to change it to PRN. Pt states that PO Diluadid is better than Morphine; Change Pain medication to PO -per pt is better. DVT proph Insulin 70/30 in AM and PM; I d/w pt's nurse. To monitor BGM. AM labs
[2017-01-25] MEDS ORDERED: PT OWN MED DRAWER 7, Y5N ONE ×3 (14:27→21:19)
[2017-01-25] MEDS ORDERED: INSULIN (NOVOLOG MIX 70/30) 100 UNITS/ML MDV SQ ONE (18:07)
[2017-01-25] MEDS: ATORVASTATIN CA 20 MG TABLET (FP) PO SCH (21:40)
[2017-01-26] MEDS: ONDANSETRON 4 MG TABLET PO SCH ×3 (06:33→21:00)
[2017-01-26] MEDS: PRIMIDONE 250 MG TABLET PO SCH ×3 (06:34→21:00)
[2017-01-26] MEDS: INSULIN (NOVOLOG MIX 70/30) 100 UNITS/ML MDV SQ SCH (06:34)
[2017-01-26] MEDS: INSULIN SLIDING SCALE (NOVOLOG) 1 VIAL SQ SCH ×4 (06:34→21:00)
[2017-01-26] MEDS ORDERED: INSULIN (NOVOLOG) ASPART 100 UNITS/ML 10ML VIAL ONE ×2 (06:43→12:18)
--- NOTE | 2017-01-26 08:08 | PN ---
Progress Note (short form) - Note Progress Note: Ortho Pt seen and examined s/p left hip cannulated screws Selected Entries 01/26/17 06:00 Temperature 97.9 F Pulse Rate 79 Respiratory 16 Rate Blood Pressure 121/53 Laboratory Tests 01/24/17 07:00 WBC 7.7 Hgb 10.2 L Hct 30.6 L Plt Count 321 dressing with slight drainage but not to borders, decr ttp, nvi a/p PT TTWB dvt ppx pain control d/c planning
[2017-01-26 08:22] LABS: ANION GAP 16 (8-16); CO2 21 mmol/L (21-32); CREATININE 0.5 mg/dL (0.55-1.02)
[2017-01-26 09:08] LABS: GLUCOSE,RANDOM 319 mg/dL (74-106)
[2017-01-26] MEDS ORDERED: PT OWN MED DRAWER 7, Y5N ONE ×2 (09:58→23:54)
[2017-01-26] MEDS: HYDROmorphone HCL 2 MG TABLET PO PRN (10:22)
[2017-01-26] MEDS: DULoxetine HCL 30 MG CAPSULE.DR (FP) PO SCH (10:23)
[2017-01-26] MEDS: ASPIRIN 81 MG CHEWABLE TABLETS PO SCH (10:23)
[2017-01-26] MEDS: LISINOPRIL 5 MG TABLET (FP) PO SCH (10:23)
[2017-01-26] MEDS: HEPARIN NA (PORCINE) 5,000 UNITS/ML 1ML VIAL SQ SCH ×2 (10:23→21:00)
[2017-01-26] MEDS: POLYETHYLENE GLYCOL 3350 119 GM BTL PO SCH (10:27)
[2017-01-26] MEDS ORDERED: INSULIN (NOVOLOG MIX 70/30) 100 UNITS/ML MDV SQ SCH ×2 (10:31→16:30)
[2017-01-26] MEDS ORDERED: SENNOSIDES/DOCUSATE COMBO (SENNA PLUS) TABLET (UD) PO ONE (11:05)
--- NOTE | 2017-01-26 13:07 | PN ---
Progress Note, Physician History of Present Illness: 56 year old woman with a history of HTN, HLD, DMII, multivessel CAD s/p MARGARITO x 3 2005 LAD/RCA/LCx, mult episodes of hypoglycemia in the past admitted with a L hip fracture planned for likely surgery. Pt was seen and examined today in [facility]. States she has significant pain on and off from her hip fracture. Denies any chest pain or sob episodes recently. states that prior to her injury she would walk a lot without limitation to her exercise tolerance and without chest pain or sob either with rest or with exertion. Her last nuclear stress test was 2013 and showed no ischemia and last echo 04/2016 was reportedly overall normal. No palpitations, pnd, orthopnea, LE edema. no syncope or near syncope. - Current Medication List Current Medications: Active Medications Acetaminophen (Tylenol -) 650 mg PO Q6H PRN PRN Reason: PAIN Last Admin: 01/23/17 20:40 Dose: 650 mg Aspirin (Asa -) 81 mg PO DAILY [facility] Last Admin: 01/26/17 10:23 Dose: 81 mg Atorvastatin Calcium (Lipitor -) 20 mg PO HS [facility] Last Admin: 01/25/17 21:40 Dose: 20 mg Duloxetine HCl (Cymbalta -) 90 mg PO DAILY [facility] Last Admin: 01/26/17 10:23 Dose: 90 mg Heparin Sodium (Porcine) (Heparin -) 5,000 unit SQ BID [facility] Last Admin: 01/26/17 10:23 Dose: 5,000 unit Insulin Aspart (Novolog Vial Sliding Scale -) 1 vial SQ ACHS [facility] PRN Reason: Protocol Last Admin: 01/26/17 12:19 Dose: 6 units Insulin Aspart (Novolog Mix 70/30 Vial) 22 units SQ ACBK [facility] Insulin Aspart (Novolog Mix 70/30 Vial) 8 units SQ ACDIN [facility] Lisinopril (Prinivil) 2.5 mg PO DAILY [facility] Last Admin: 01/26/17 10:23 Dose: 2.5 mg Ondansetron HCl (Zofran -) 4 mg PO TID [facility] Last Admin: 01/26/17 06:33 Dose: 4 mg Polyethylene Glycol (Miralax (For Daily Use) -) 17 gm PO DAILY [facility] Last Admin: 01/26/17 10:27 Dose: Not Given Primidone (Mysoline -) 250 mg PO TID [facility] Last Admin: 01/26/17 06:34 Dose: 250 mg - Objective Vital Signs: Vital Signs Temperature 98.0 F 01/26/17 08:18 Pulse Rate 85 01/26/17 08:18 Respiratory Rate 18 01/26/17 08:18 Blood Pressure 100/60 01/26/17 08:18 O2 Sat by Pulse Oximetry (%) 96 01/26/17 08:48 Eyes: Yes: WNL, Conjunctiva Clear, EOM Intact HENT: Yes: WNL, Atraumatic, Normocephalic Neck: Yes: WNL, Supple, Trachea Midline Cardiovascular: Yes: WNL, Regular Rate and Rhythm Respiratory: Yes: WNL, Regular, CTA Bilaterally Gastrointestinal: Yes: WNL, Normal Bowel Sounds Genitourinary: Yes: WNL Musculoskeletal: Yes: WNL Extremities: Yes: WNL Edema: No Integumentary: Yes: WNL Neurological: Yes: WNL, Alert, Oriented ...Motor Strength: WNL Psychiatric: Yes: WNL Labs: CBC, BMP 01/24/17 07:00 01/26/17 06:20 INR, PTT INR 1.08 (0.82-1.09) 01/16/17 16:40 Problem List - Problems (1) Seizure Code(s): R56.9 - UNSPECIFIED CONVULSIONS (2) Hypoglycemia Code(s): E16.2 - HYPOGLYCEMIA, UNSPECIFIED (3) Hypothermia Code(s): T68.XXXA - HYPOTHERMIA, INITIAL ENCOUNTER (4) Lactic acidosis Code(s): E87.2 - ACIDOSIS (5) Systemic inflammatory response syndrome (SIRS) Code(s): R65.10 - SIRS OF NON-INFECTIOUS ORIGIN W/O ACUTE ORGAN DYSFUNCTION (6) Diabetes Code(s): E11.9 - TYPE 2 DIABETES MELLITUS WITHOUT COMPLICATIONS Qualifiers: Diabetes mellitus type: type 2 Diabetes mellitus complication status: with hypoglycemia Diabetes mellitus complication detail: without coma (7) Humeral head fracture Code(s): S42.293A - OTH DISP FX OF UPPER END OF UNSP HUMERUS, INIT FOR CLOS FX (8) CAD (coronary artery disease) Code(s): I25.10 - ATHSCL HEART DISEASE OF [place] CORONARY ARTERY W/O ANG PCTRS (9) Asthma Code(s): J45.909 - UNSPECIFIED ASTHMA, UNCOMPLICATED (10) Diabetic autonomic neuropathy associated with diabetes mellitus due to underlying condition Code(s): E08.43 - DIAB DUE TO UNDRL COND W DIABETIC AUTONM (POLY)NEUROPATHY (11) Elevated LFTs Code(s): R79.89 - OTHER SPECIFIED ABNORMAL FINDINGS OF BLOOD CHEMISTRY (12) Lethargy Code(s): R53.83 - OTHER FATIGUE (13) Fever Code(s): R50.9 - FEVER, UNSPECIFIED (14) Fracture of left tibia and fibula Code(s): S82.202A - UNSP FRACTURE OF SHAFT OF LEFT TIBIA, INIT FOR CLOS FX; S82.402A - UNSP FRACTURE OF SHAFT OF LEFT FIBULA, INIT FOR CLOS FX Qualifiers: Encounter type: initial encounter Fracture type: closed Qualified Code(s) : S82.202A - Unspecified fracture of shaft of left tibia, initial encounter for closed fracture (15) Knee fracture, left Code(s): [id number] - (16) Finger pain, left Code(s): M79.645 - PAIN IN LEFT FINGER(S) (17) Anemia Code(s): D64.9 - ANEMIA, UNSPECIFIED (18) History of [place] (myocardial infarction) Code(s): I25.2 - OLD MYOCARDIAL INFARCTION (19) COPD (chronic obstructive pulmonary disease) Code(s): J44.9 - CHRONIC OBSTRUCTIVE PULMONARY DISEASE, UNSPECIFIED (20) Smoker Code(s): F17.200 - NICOTINE DEPENDENCE, UNSPECIFIED, UNCOMPLICATED (21) Essential tremor Code(s): G25.0 - ESSENTIAL TREMOR (22) UTI (urinary tract infection) Code(s): N39.0 - URINARY TRACT INFECTION, SITE NOT SPECIFIED Qualifiers: Urinary tract infection type: site unspecified Hematuria presence: without hematuria Qualified Code(s): N39.0 - Urinary tract infection, site not specified (23) Diarrhea Code(s): R19.7 - DIARRHEA, UNSPECIFIED (24) Facial contusion Code(s): S00.83XA - CONTUSION OF OTHER PART OF HEAD, INITIAL ENCOUNTER Qualifiers: Encounter type: initial encounter Qualified Code(s): S00.83XA - Contusion of other part of head, initial encounter (25) Corneal abrasion, left Code(s): S05.02XA - INJ CONJUNCTIVA AND CORNEAL ABRASION W/O FB, LEFT EYE, INIT Qualifiers: Encounter type: initial encounter Qualified Code(s): S05.02XA - Injury of conjunctiva and corneal abrasion without foreign body, left eye, initial encounter (26) Hypoglycemia due to insulin Code(s): E16.0 - DRUG-INDUCED HYPOGLYCEMIA WITHOUT COMA; T38.3X5A - ADVERSE EFFECT OF INSULIN AND ORAL HYPOGLYCEMIC DRUGS, INIT (27) Closed left hip fracture Code(s): S72.002A - FRACTURE OF UNSP PART OF NECK OF LEFT FEMUR, INIT (28) Diabetic hypoglycemia Code(s): E11.649 - TYPE 2 DIABETES MELLITUS WITH HYPOGLYCEMIA WITHOUT COMA (29) Hypokalemia Code(s): E87.6 - HYPOKALEMIA Assessment/Plan CAD-prior stents 2005 Neg stress MIBI 2013 asymptomatic normal echo and carotids 2017 -resume ASA and Plavix as soon as possible -cont statin HTN-adequately controlled -does not require anti-htn meds at this time HLD -cont statin not on bb due to severe hypoglycemic episodes. stable post op restart asa/plavix as soon as possible and cleared by ortho
--- NOTE | 2017-01-26 13:16 | PN ---
Progress Note, Physician History of Present Illness: Pt w/o fever, chills, cough, CP, abd pain, dysuria. Pt nausea improved, no V; better PO intake. Pt wants to go home not to rehab although she admits that is nobody home to help her; instead she would try to help her daughter that is in wheelchair. - Current Medication List Current Medications: Active Medications Acetaminophen (Tylenol -) 650 mg PO Q6H PRN PRN Reason: PAIN Last Admin: 01/23/17 20:40 Dose: 650 mg Aspirin (Asa -) 81 mg PO DAILY [facility] Last Admin: 01/26/17 10:23 Dose: 81 mg Atorvastatin Calcium (Lipitor -) 20 mg PO HS [facility] Last Admin: 01/25/17 21:40 Dose: 20 mg Duloxetine HCl (Cymbalta -) 90 mg PO DAILY [facility] Last Admin: 01/26/17 10:23 Dose: 90 mg Heparin Sodium (Porcine) (Heparin -) 5,000 unit SQ BID [facility] Last Admin: 01/26/17 10:23 Dose: 5,000 unit Insulin Aspart (Novolog Vial Sliding Scale -) 1 vial SQ ACHS [facility] PRN Reason: Protocol Last Admin: 01/26/17 12:19 Dose: 6 units Insulin Aspart (Novolog Mix 70/30 Vial) 22 units SQ ACBK [facility] Insulin Aspart (Novolog Mix 70/30 Vial) 8 units SQ ACDIN [facility] Lisinopril (Prinivil) 2.5 mg PO DAILY [facility] Last Admin: 01/26/17 10:23 Dose: 2.5 mg Ondansetron HCl (Zofran -) 4 mg PO TID [facility] Last Admin: 01/26/17 06:33 Dose: 4 mg Polyethylene Glycol (Miralax (For Daily Use) -) 17 gm PO DAILY [facility] Last Admin: 01/26/17 10:27 Dose: Not Given Primidone (Mysoline -) 250 mg PO TID [facility] Last Admin: 01/26/17 06:34 Dose: 250 mg - Objective Vital Signs: Vital Signs Temperature 98.0 F 01/26/17 08:18 Pulse Rate 85 01/26/17 08:18 Respiratory Rate 18 01/26/17 08:18 Blood Pressure 100/60 01/26/17 08:18 O2 Sat by Pulse Oximetry (%) 96 01/26/17 08:48 Constitutional: Yes: No Distress, Calm Cardiovascular: Yes: Regular Rate and Rhythm, S1, S2 Respiratory: Yes: Regular, CTA Bilaterally. No: Rales Gastrointestinal: Yes: Normal Bowel Sounds, Soft. No: Tenderness Neurological: Yes: Alert, Oriented, Other (generalizer tremor) Labs: CBC, BMP 01/24/17 07:00 01/26/17 06:20 INR, PTT INR 1.08 (0.82-1.09) 01/16/17 16:40 Problem List - Problems (1) Closed left hip fracture Code(s): S72.002A - FRACTURE OF UNSP PART OF NECK OF LEFT FEMUR, INIT (2) Diabetes Code(s): E11.9 - TYPE 2 DIABETES MELLITUS WITHOUT COMPLICATIONS Qualifiers: Diabetes mellitus type: type 2 Diabetes mellitus complication status: with hypoglycemia Diabetes mellitus complication detail: without coma (3) CAD (coronary artery disease) Code(s): I25.10 - ATHSCL HEART DISEASE OF [place] CORONARY ARTERY W/O ANG PCTRS (4) Diabetic hypoglycemia Code(s): E11.649 - TYPE 2 DIABETES MELLITUS WITH HYPOGLYCEMIA WITHOUT COMA (5) Hypokalemia Code(s): E87.6 - HYPOKALEMIA (6) Hyperkalemia Code(s): E87.5 - HYPERKALEMIA Assessment/Plan Pain control. Ortho consult appreciated; s/o ORIF of left hip. Cardio consult appreciated. Trial of Zofran TAYLA improved PO intake, no nausea; to change it to PRN. Pt states that PO Diluadid is better than Morphine; Change Pain medication to PO -per pt is better. DVT proph Insulin 70/30 in AM and PM; I d/w pt's nurse. To monitor BGM. AM labs. I explained to pt (pt's nurse, Latrice, at bedside) that to be DC'ed home she needs to be independent in the minimum activities required by PT. I made again pt aware of risks of falling and possible new fracture (and possible bed bound for the rest of her life). I spoke with CM and 6-th floor inpatient nursing aide.
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
[2017-01-26] MEDS: ACETAMINOPHEN 325 MG TABLET (FP) PO PRN (20:45)
[2017-01-26] MEDS: ATORVASTATIN CA 20 MG TABLET (FP) PO SCH (21:00)
[2017-01-27 05:52] VITALS: TEMP 98.8
[2017-01-27] MEDS: PRIMIDONE 250 MG TABLET PO SCH ×2 (05:52→15:03)
[2017-01-27] MEDS: ONDANSETRON 4 MG TABLET PO SCH ×2 (05:52→15:04)
[2017-01-27] MEDS: INSULIN SLIDING SCALE (NOVOLOG) 1 VIAL SQ SCH ×2 (06:40→11:31)
[2017-01-27 06:43] VITALS: BP 110/61; PULSE 90
[2017-01-27] MEDS ORDERED: INSULIN (NOVOLOG MIX 70/30) 100 UNITS/ML MDV SQ ONE (06:58)
[2017-01-27] MEDS ORDERED: INSULIN (NOVOLOG) ASPART 100 UNITS/ML 10ML VIAL ONE ×2 (06:59→11:29)
[2017-01-27] MEDS: ASPIRIN 81 MG CHEWABLE TABLETS PO SCH (09:49)
[2017-01-27] MEDS: LISINOPRIL 5 MG TABLET (FP) PO SCH (09:49)
[2017-01-27] MEDS: DULoxetine HCL 30 MG CAPSULE.DR (FP) PO SCH (09:49)
[2017-01-27] MEDS: HEPARIN NA (PORCINE) 5,000 UNITS/ML 1ML VIAL SQ SCH (09:50)
--- NOTE | 2017-01-27 09:52 | PN ---
Progress Note, Physician History of Present Illness: I am aware off last night event (pt fell). Pt w/o fever, chills, cough, CP, abd pain, dysuria. PT at bedside; pt cannot function independently, needs at least one person help.. Pt still wants to go home not to rehab although she admits that is nobody home to help her. - Current Medication List Current Medications: Active Medications Acetaminophen (Tylenol -) 650 mg PO Q6H PRN PRN Reason: PAIN Last Admin: 01/26/17 20:45 Dose: 650 mg Aspirin (Asa -) 81 mg PO DAILY [facility] Last Admin: 01/27/17 09:49 Dose: 81 mg Atorvastatin Calcium (Lipitor -) 20 mg PO HS [facility] Last Admin: 01/26/17 21:00 Dose: 20 mg Duloxetine HCl (Cymbalta -) 90 mg PO DAILY [facility] Last Admin: 01/27/17 09:49 Dose: 90 mg Heparin Sodium (Porcine) (Heparin -) 5,000 unit SQ BID [facility] Last Admin: 01/27/17 09:50 Dose: 5,000 unit Insulin Aspart (Novolog Vial Sliding Scale -) 1 vial SQ ACHS [facility] PRN Reason: Protocol Last Admin: 01/27/17 06:40 Dose: 6 units Insulin Aspart (Novolog Mix 70/30 Vial) 22 units SQ ACBK [facility] Last Admin: 01/27/17 06:39 Dose: 22 units Insulin Aspart (Novolog Mix 70/30 Vial) 8 units SQ ACDIN [facility] Last Admin: 01/26/17 17:11 Dose: 8 units Lisinopril (Prinivil) 2.5 mg PO DAILY [facility] Last Admin: 01/27/17 09:49 Dose: 2.5 mg Ondansetron HCl (Zofran -) 4 mg PO TID [facility] Last Admin: 01/27/17 05:52 Dose: 4 mg Polyethylene Glycol (Miralax (For Daily Use) -) 17 gm PO DAILY [facility] Last Admin: 01/26/17 10:27 Dose: Not Given Primidone (Mysoline -) 250 mg PO TID [facility] Last Admin: 01/27/17 05:52 Dose: 250 mg - Objective Vital Signs: Vital Signs Temperature 98.8 F 01/27/17 05:55 Pulse Rate 90 01/27/17 05:55 Respiratory Rate 20 01/27/17 05:55 Blood Pressure 110/61 01/27/17 05:55 O2 Sat by Pulse Oximetry (%) 98 01/26/17 21:00 Constitutional: Yes: No Distress, Calm Cardiovascular: Yes: Regular Rate and Rhythm, S1, S2 Respiratory: Yes: Regular, CTA Bilaterally. No: Rales Gastrointestinal: Yes: Normal Bowel Sounds, Soft. No: Tenderness Edema: No Neurological: Yes: Alert, Oriented Labs: CBC, BMP 01/24/17 07:00 01/26/17 06:20 INR, PTT INR 1.08 (0.82-1.09) 01/16/17 16:40 Problem List - Problems (1) Closed left hip fracture Code(s): S72.002A - FRACTURE OF UNSP PART OF NECK OF LEFT FEMUR, INIT (2) Diabetes Code(s): E11.9 - TYPE 2 DIABETES MELLITUS WITHOUT COMPLICATIONS Qualifiers: Diabetes mellitus type: type 2 Diabetes mellitus complication status: with hypoglycemia Diabetes mellitus complication detail: without coma (3) CAD (coronary artery disease) Code(s): I25.10 - ATHSCL HEART DISEASE OF [place] CORONARY ARTERY W/O ANG PCTRS (4) Diabetic hypoglycemia Code(s): E11.649 - TYPE 2 DIABETES MELLITUS WITH HYPOGLYCEMIA WITHOUT COMA (5) Hypokalemia Code(s): E87.6 - HYPOKALEMIA (6) Hyperkalemia Code(s): E87.5 - HYPERKALEMIA (7) Fall Assessment/Plan: secondary to weakness. Code(s): W19.XXXA - UNSPECIFIED FALL, INITIAL ENCOUNTER Assessment/Plan Pain control. Ortho consult appreciated; s/o ORIF of left hip. Cardio consult appreciated. Trial of Zofran TAYLA improved PO intake, no nausea; to change it to PRN. Pt states that PO Diluadid is better than Morphine; Change Pain medication to PO -per pt is better. DVT proph Insulin 70/30 in AM and PM; I d/w pt's nurse. To monitor BGM. AM labs. I recommended to pt to strongly consider Rehab (last night fall shows that she needs to get stronger, to prevent further injuries). Case was d/w pt's nurse and 6 S professional nursing assistant.
[2017-01-27] MEDS: POLYETHYLENE GLYCOL 3350 119 GM BTL PO SCH (09:57)
[2017-01-27] MEDS: ACETAMINOPHEN 325 MG TABLET (FP) PO PRN (10:42)
--- NOTE | 2017-01-27 11:47 | PN ---
Progress Note, Physician History of Present Illness: 56 year old woman with a history of HTN, HLD, DMII, multivessel CAD s/p MARGARITO x 3 2005 LAD/RCA/LCx, mult episodes of hypoglycemia in the past admitted with a L hip fracture planned for likely surgery. Pt was seen and examined today in nad. States she has significant pain on and off from her hip fracture. Denies any chest pain or sob episodes recently. states that prior to her injury she would walk a lot without limitation to her exercise tolerance and without chest pain or sob either with rest or with exertion. Her last nuclear stress test was 2013 and showed no ischemia and last echo 04/2016 was reportedly overall normal. No palpitations, pnd, orthopnea, LE edema. no syncope or near syncope. - Current Medication List Current Medications: Active Medications Acetaminophen (Tylenol -) 650 mg PO Q6H PRN PRN Reason: PAIN Last Admin: 01/27/17 10:42 Dose: 650 mg Aspirin (Asa -) 81 mg PO DAILY [facility] Last Admin: 01/27/17 09:49 Dose: 81 mg Atorvastatin Calcium (Lipitor -) 20 mg PO HS [facility] Last Admin: 01/26/17 21:00 Dose: 20 mg Duloxetine HCl (Cymbalta -) 90 mg PO DAILY [facility] Last Admin: 01/27/17 09:49 Dose: 90 mg Heparin Sodium (Porcine) (Heparin -) 5,000 unit SQ BID [facility] Last Admin: 01/27/17 09:50 Dose: 5,000 unit Insulin Aspart (Novolog Vial Sliding Scale -) 1 vial SQ ACHS [facility] PRN Reason: Protocol Last Admin: 01/27/17 11:31 Dose: 4 units Insulin Aspart (Novolog Mix 70/30 Vial) 22 units SQ ACBK [facility] Last Admin: 01/27/17 06:39 Dose: 22 units Insulin Aspart (Novolog Mix 70/30 Vial) 8 units SQ ACDIN [facility] Last Admin: 01/26/17 17:11 Dose: 8 units Lisinopril (Prinivil) 2.5 mg PO DAILY [facility] Last Admin: 01/27/17 09:49 Dose: 2.5 mg Ondansetron HCl (Zofran -) 4 mg PO TID [facility] Last Admin: 01/27/17 05:52 Dose: 4 mg Polyethylene Glycol (Miralax (For Daily Use) -) 17 gm PO DAILY [facility] Last Admin: 01/27/17 09:57 Dose: 17 grams Primidone (Mysoline -) 250 mg PO TID [facility] Last Admin: 01/27/17 05:52 Dose: 250 mg - Objective Vital Signs: Vital Signs Temperature 98.8 F 01/27/17 05:55 Pulse Rate 90 01/27/17 05:55 Respiratory Rate 20 01/27/17 05:55 Blood Pressure 110/61 01/27/17 05:55 O2 Sat by Pulse Oximetry (%) 98 01/26/17 21:00 Eyes: Yes: WNL, Conjunctiva Clear, EOM Intact HENT: Yes: WNL, Atraumatic, Normocephalic Neck: Yes: WNL, Supple, Trachea Midline Cardiovascular: Yes: WNL, Regular Rate and Rhythm Respiratory: Yes: WNL, Regular, CTA Bilaterally Gastrointestinal: Yes: WNL, Normal Bowel Sounds Genitourinary: Yes: WNL Musculoskeletal: Yes: WNL Extremities: Yes: WNL Edema: No Integumentary: Yes: WNL Neurological: Yes: Alert, Oriented, Tremors ...Motor Strength: WNL Psychiatric: Yes: WNL Labs: CBC, BMP 01/24/17 07:00 01/26/17 06:20 INR, PTT INR 1.08 (0.82-1.09) 01/16/17 16:40 Problem List - Problems (1) Seizure Code(s): R56.9 - UNSPECIFIED CONVULSIONS (2) Hypoglycemia Code(s): E16.2 - HYPOGLYCEMIA, UNSPECIFIED (3) Hypothermia Code(s): T68.XXXA - HYPOTHERMIA, INITIAL ENCOUNTER (4) Lactic acidosis Code(s): E87.2 - ACIDOSIS (5) Systemic inflammatory response syndrome (SIRS) Code(s): R65.10 - SIRS OF NON-INFECTIOUS ORIGIN W/O ACUTE ORGAN DYSFUNCTION (6) Diabetes Code(s): E11.9 - TYPE 2 DIABETES MELLITUS WITHOUT COMPLICATIONS Qualifiers: Diabetes mellitus type: type 2 Diabetes mellitus complication status: with hypoglycemia Diabetes mellitus complication detail: without coma (7) Humeral head fracture Code(s): S42.293A - OTH DISP FX OF UPPER END OF UNSP HUMERUS, INIT FOR CLOS FX (8) CAD (coronary artery disease) Code(s): I25.10 - ATHSCL HEART DISEASE OF [place] CORONARY ARTERY W/O ANG PCTRS (9) Asthma Code(s): J45.909 - UNSPECIFIED ASTHMA, UNCOMPLICATED (10) Diabetic autonomic neuropathy associated with diabetes mellitus due to underlying condition Code(s): E08.43 - DIAB DUE TO UNDRL COND W DIABETIC AUTONM (POLY)NEUROPATHY (11) Elevated LFTs Code(s): R79.89 - OTHER SPECIFIED ABNORMAL FINDINGS OF BLOOD CHEMISTRY (12) Lethargy Code(s): R53.83 - OTHER FATIGUE (13) Fever Code(s): R50.9 - FEVER, UNSPECIFIED (14) Fracture of left tibia and fibula Code(s): S82.202A - UNSP FRACTURE OF SHAFT OF LEFT TIBIA, INIT FOR CLOS FX; S82.402A - UNSP FRACTURE OF SHAFT OF LEFT FIBULA, INIT FOR CLOS FX Qualifiers: Encounter type: initial encounter Fracture type: closed Qualified Code(s) : S82.202A - Unspecified fracture of shaft of left tibia, initial encounter for closed fracture (15) Knee fracture, left Code(s): BSS3203 - (16) Finger pain, left Code(s): M79.645 - PAIN IN LEFT FINGER(S) (17) Anemia Code(s): D64.9 - ANEMIA, UNSPECIFIED (18) History of ID (myocardial infarction) Code(s): I25.2 - OLD MYOCARDIAL INFARCTION (19) COPD (chronic obstructive pulmonary disease) Code(s): J44.9 - CHRONIC OBSTRUCTIVE PULMONARY DISEASE, UNSPECIFIED (20) Smoker Code(s): F17.200 - NICOTINE DEPENDENCE, UNSPECIFIED, UNCOMPLICATED (21) Essential tremor Code(s): G25.0 - ESSENTIAL TREMOR (22) UTI (urinary tract infection) Code(s): N39.0 - URINARY TRACT INFECTION, SITE NOT SPECIFIED Qualifiers: Urinary tract infection type: site unspecified Hematuria presence: without hematuria Qualified Code(s): N39.0 - Urinary tract infection, site not specified (23) Diarrhea Code(s): R19.7 - DIARRHEA, UNSPECIFIED (24) Facial contusion Code(s): S00.83XA - CONTUSION OF OTHER PART OF HEAD, INITIAL ENCOUNTER Qualifiers: Encounter type: initial encounter Qualified Code(s): S00.83XA - Contusion of other part of head, initial encounter (25) Corneal abrasion, left Code(s): S05.02XA - INJ CONJUNCTIVA AND CORNEAL ABRASION W/O FB, LEFT EYE, INIT Qualifiers: Encounter type: initial encounter Qualified Code(s): S05.02XA - Injury of conjunctiva and corneal abrasion without foreign body, left eye, initial encounter (26) Hypoglycemia due to insulin Code(s): E16.0 - DRUG-INDUCED HYPOGLYCEMIA WITHOUT COMA; T38.3X5A - ADVERSE EFFECT OF INSULIN AND ORAL HYPOGLYCEMIC DRUGS, INIT (27) Closed left hip fracture Code(s): S72.002A - FRACTURE OF UNSP PART OF NECK OF LEFT FEMUR, INIT (28) Diabetic hypoglycemia Code(s): E11.649 - TYPE 2 DIABETES MELLITUS WITH HYPOGLYCEMIA WITHOUT COMA (29) Hypokalemia Code(s): E87.6 - HYPOKALEMIA Assessment/Plan CAD-prior stents 2005 Neg stress MIBI 2013 asymptomatic normal echo and carotids 2017 -resume ASA and Plavix as soon as possible -cont statin HTN-adequately controlled -does not require anti-htn meds at this time HLD -cont statin not on bb due to severe hypoglycemic episodes. stable post op restart asa/plavix as soon as possible and cleared by ortho
[2017-01-27] MEDS ORDERED: ONDANSETRON 4 MG TABLET PO PRN (14:59)
[2017-01-27] MEDS ORDERED: PT OWN MED DRAWER 7, Y5N ONE (14:59)
[2017-01-27] MEDS ORDERED: SENNOSIDES/DOCUSATE COMBO (SENNA PLUS) TABLET (UD) PO SCH (15:00)
--- NOTE | 2017-01-27 15:10 | DS ---
Physical Examination Vital Signs: Vital Signs Temperature 98.8 F 01/27/17 05:55 Pulse Rate 90 01/27/17 05:55 Respiratory Rate 20 01/27/17 05:55 Blood Pressure 110/61 01/27/17 05:55 O2 Sat by Pulse Oximetry (%) 98 01/26/17 21:00 Findings/Remarks: See today progress note for HPI and PE and Dg. Labs: CBC, BMP 01/24/17 07:00 01/26/17 06:20 Discharge Summary Reason For Visit: LEFT HIP FRACTURE Current Active Problems Closed left hip fracture (Acute) Diabetic hypoglycemia (Acute) Fall (Acute) Hyperkalemia (Acute) Hypokalemia (Acute) Hypothyroid (Acute) Hospital Course: Pt came to ER after a mechanical fall at home (2 days prior to ER visit); in ER it was noticed to have left hip FX. Pt was seen by Cardio ( Blanche) for clearance, Ortho ( Dr. Underwood). Pt went to OR, had ORIF to left hip. Pt with decreased appetite and vomiting after surgery, Insulin dose was decreased to prevent hypoglycemia. Pt was noticed to have low sodium, improving. Pt had a fall (assisted to the floor by her nurse) last night, without body injury. Pt to be DC'ed to Rehab; to repeat labs every week, readjust Insulin dose for glucose control. Condition: Fair - Instructions Diet, Activity, Other Instructions: Diet: ADA, low cholesterol. TTWB for 3 weeks, then PWB Referrals: Flex Starr MD [Primary Care Provider] - (in 1-2 weeks after DC from Rehab.) Wilmar Oates MD [Staff Physician] - (with in 1 week after rehab DC) Disposition: ALF FACILITY - Home Medications Comprehensive Discharge Medication List: Ambulatory Orders this list might NOT be accurate. Aspirin [ASA -] 81 mg PO DAILY 01/23/16 Clopidogrel Bisulfate [Clopidogrel] 75 mg PO DAILY 01/23/16 Duloxetine HCl [Cymbalta -] 90 mg PO DAILY 01/23/16 Lovastatin [Altoprev] 40 mg PO BID 01/23/16 Primidone [Mysoline] 750 mg PO DAILY 07/17/16 Insulin (Novolog 70/30) [Novolog Mix 70/30 Vial -] 16 units SQ ACBK #1 vial NS MDD 1 06/20/17 Insulin Sliding Scale [Novolog Vial Sliding Scale -] 1 vial SQ ACHS units 09/02
--- NOTE | 2017-01-27 16:15 | PN ---
Progress Note (short form) - Note Progress Note: Ortho Pt seen and examined s/p left hip cannulated screws Selected Entries 01/27/17 05:55 Temperature 98.8 F Pulse Rate 90 Respiratory 20 Rate Blood Pressure 110/61 Laboratory Tests 01/24/17 07:00 WBC 7.7 Hgb 10.2 L Hct 30.6 L Plt Count 321 dressing with slight drainage but not to borders, decr ttp, nvi a/p PT TTWB for 3 weeks then transition to PWB dvt ppx pain control d/c to snf today
[2017-01-28] MEDS ORDERED: CLOPIDOGREL BISULFATE 75 MG TABLET (FP) PO SCH (10:00)
== END 2017-01-27 18:26 | DRG 481 ==
LOC: JER 15:26 → JERBED 19:37 → J6S 21:19
PROVIDERS: ADMIT Specialist; ATTEND Specialist
PROC: 0QS704Z Reposition Left Upper Femur with Internal Fixation Device, Open Approach (ICD-10-PCS; principal; 2017-01-21 08:00)
DX: S72.002A Fracture of unspecified part of neck of left femur, initial encounter for closed fracture (principal); E87.1 Hypo-osmolality and hyponatremia; W19.XXXA Unspecified fall, initial encounter; Y93.9 Activity, unspecified; Y92.098 Other place in other non-institutional residence as the place of occurrence of the external cause; Y99.9 Unspecified external cause status; E03.9 Hypothyroidism, unspecified; E11.649 Type 2 diabetes mellitus with hypoglycemia without coma; E78.5 Hyperlipidemia, unspecified; I25.10 Atherosclerotic heart disease of native coronary artery without angina pectoris; Z98.61 Coronary angioplasty status; F17.210 Nicotine dependence, cigarettes, uncomplicated; E87.6 Hypokalemia; E87.5 Hyperkalemia
CPT/HCPCS: 36415; 70450-TC; 71010-TC; 73523-TC; 74020-TC; 76000-TC; 80048; 80053; 80061; 80307; 81003; 81015; 82947; 83721; 84439; 84443; 85025; 85027; 85610; 85730; 93005; 93010; 93306-TC; 94760; 97116-GP; 97162-GP; 99284-25; J1644

== ENCOUNTER 2017-02-16 17:46 | Inpatient (IN) | payer OTHER ==
[2017-02-16] MEDS ORDERED: SODIUM CHLORIDE 1,000 ML IV STA ×2 (18:08→21:33)
[2017-02-16] MEDS ORDERED: ONDANSETRON 4 MG/2 ML VIAL IVPUSH ONE (18:26)
[2017-02-16 18:32] LABS: ARTERIAL BLD GAS O2 SATURATION 97.5 % (90-98.9); ARTERIAL BLOOD GAS BASE EXCESS -13.6 meq/l (-2-2); ARTERIAL BLOOD GAS PCO2 24.8 mmHg (35-45); ARTERIAL BLOOD GAS pH 7.29 (7.35-7.45)
[2017-02-16 18:35] LABS: ALLENS TEST POSITIVE
[2017-02-16 18:37] LABS: CARBOXYHEMOGLOBIN 2.2 gm% (0.5-2.0)
[2017-02-16 19:10] LABS: BASO % 0.5 % (0-2.0); EOS % 0.4 % (0-4.5); HEMATOCRIT 39.5 % (32.4-45.2); HEMOGLOBIN 12.6 GM/dL (10.7-15.3); LYMPH % 10.8 % (8-40); MCH 33.7 pg (25.7-33.7); MCHC 31.8 g/dl (32.0-36.0); MEAN CELL VOLUME 106.1 fl (80-96); MEAN PLT VOLUME 8.8 fl (7.5-11.1); MONO % 4.6 % (3.8-10.2); NEUT % 83.7 % (42.8-82.8); PLATELET COUNT 389 K/MM3 (134-434); RBC 3.73 M/mm3 (3.60-5.2); RDW 14.5 % (11.6-15.6); WHITE BLOOD COUNT 13.4 K/mm3 (4.0-10.0)
[2017-02-16 19:28] LABS: INR 1.11 (0.82-1.09); PROTHROMBIN TIME (PATIENT) 12.5 SEC (9.98-11.88)
--- NOTE | 2017-02-16 20:02 | PDOC ---
History of Present Illness - General History Source: Patient Exam Limitations: No Limitations - History of Present Illness Initial Comments: 02/16/17 20:09 The patient is a 56 year old female, with a significant past medical history of essential tremor s/p traumatic brain injury, coronary artery disease, [place] with stents, COPD, diabetes who presents to the emergency department with elevated blood glucose today. Patient reports sudden onset of nausea and vomiting with associated diffuse abdominal cramping. Patient reports she is unable to eat however took her daily insulin today. Patient reports her insulin medications recently changed last week. Patient called EMS and upon arrival BG was 399. Patient was recently admitted to [facility] for L hip fracture and was discharged on 01/27/2017. Patient denies chest pain, headache or dizziness. Patient denies fever, chills, diarrhea or constipation. Patient denies dysuria, frequency, urgency or hematuria. Patient denies sick contacts or recent travel. PCP: Dr. Mae Starr Endo: Katalina. <Lien Mascorro - Last Filed: 02/16/17 22:58> <Alice Barnett - Last Filed: 02/18/17 01:13> - General Chief Complaint: Blood Sugar Problem Stated Complaint: Blood Sugar Problem Time Seen by Provider: 02/16/17 18:03 Past History <Lien Mascorro - Last Filed: 02/16/17 22:58> - Past Medical History Anemia: No Asthma: No Cancer: Yes (VAGINAL/CERVICAL CANCER- S/P LASAR SURGERY) Cardiac Disorders: Yes (ASHD, TRIPLE BYPASS, S/P [place] X1 in 2004,STENT X'S 3) CVA: No COPD: No CHF: No Dementia: No Diabetes: Yes (IDDM) GI Disorders: No Disorders: No HTN: Yes Hypercholesterolemia: Yes Liver Disease: No Seizures: No Thyroid Disease: No - Surgical History Abdominal Surgery: No Appendectomy: No Cardiac Surgery: Yes (THREE STENTS 2006) Cholecystectomy: No Lung Surgery: No Neurologic Surgery: No Orthopedic Surgery: Yes (BILATERAL CTR) - Immunization History Td Vaccination: No TDAP Vaccination: No Immunization Up to Date: No - Suicide/Smoking/Psychosocial Hx Smoking Status: Yes Smoking History: Unknown if ever smoked Years of Tobacco Use: 15 Have you smoked in the past 12 months: No Number of Cigarettes Smoked Daily: 4 Cigars Per Day: 10 Information on smoking cessation initiated: No 'Breaking Loose' booklet given: 01/24/16 Hx Alcohol Use: No Drug/Substance Use Hx: No Substance Use Type: None Hx Substance Use Treatment: No <Alice Barnett - Last Filed: 02/18/17 01:13> - Past Medical History Allergies/Adverse Reactions: Allergies Allergy/AdvReac Type Severity Reaction Status Date / Time No Known Drug Allergies Allergy Verified 02/16/17 19:59 Home Medications: Ambulatory Orders Aspirin [ASA -] 81 mg PO DAILY 01/23/16 Clopidogrel Bisulfate [Clopidogrel] 75 mg PO DAILY 01/23/16 Primidone [Mysoline] 750 mg PO DAILY 07/17/16 Acetaminophen [Tylenol .Regular Strength -] 650 mg PO Q6H PRN tablet 01/27/17 Hydromorphone [Dilaudid -] 2 mg PO Q6H PRN #28 tablet MDD 4 01/27/17 Insulin (Novolog 70/30) [Novolog Mix 70/30 Vial -] 8 units SQ ACDIN vial Lisinopril [Prinivil] 2.5 mg PO DAILY tablet 01/27/17 Insulin (Novolog 70/30) [Novolog Mix 70/30 Vial -] 28 units SQ ACBK 02/16/17 Review of Systems - Review of Systems Able to Perform ROS?: Yes Comments:: 02/16/17 20:09 CONSTITUTIONAL: Absent: fever, chills, diaphoresis, generalized weakness, malaise, loss of appetite HEENT: Absent: rhinorrhea, nasal congestion, throat pain, throat swelling, difficulty swallowing, mouth swelling, ear pain, eye pain, visual Changes CARDIOVASCULAR: Absent: chest pain, syncope, palpitations, irregular heart rate, lightheadedness , peripheral edema RESPIRATORY: Absent: cough, shortness of breath, dyspnea with exertion, orthopnea, wheezing, stridor, hemoptysis GASTROINTESTINAL: + nausea, vomiting, abdominal pain. Absent: abdominal distension,, diarrhea, constipation, melena, hematochezia GENITOURINARY: Absent: dysuria, frequency, urgency, hesitancy, hematuria, flank pain, genital pain MUSCULOSKELETAL: Absent: myalgia, arthralgia, joint swelling SKIN: Absent: rash, itching, pallor HEMATOLOGIC/IMMUNOLOGIC: Absent: easy bleeding, easy bruising, lymphadenopathy, frequent infections ENDOCRINE: Absent: unexplained weight gain, unexplained weight loss, heat intolerance, cold intolerance NEUROLOGIC: Absent: headache, focal weakness or paresthesias, dizziness, unsteady gait, seizure, mental status changes, bladder or bowel incontinence PSYCHIATRIC: Absent: anxiety, depression, suicidal or homicidal ideation, hallucinations. <Lien Mascorro - Last Filed: 02/16/17 22:58> *Physical Exam - Vital Signs Last Vital Signs Temp Pulse Resp BP Pulse Ox 98.7 F 80 18 146/63 99 02/16/17 17:46 02/16/17 17:46 02/16/17 17:46 02/16/17 17:46 02/16/17 17:46 - Physical Exam Comments: 02/16/17 20:09 GENERAL: + Resting tremor Well developed, well nourished. Awake and alert. No acute distress. HEENT: Normocephalic, atraumatic. PERRLA, EOMI. No conjunctival pallor. Sclera are non- icteric. Moist mucous membranes. Oropharynx is clear. NECK: Supple. Full ROM. No JVD. Carotid pulses 2+ and symmetric, without bruits. No thyromegaly. No lymphadenopathy. CARDIOVASCULAR: Regular rate and rhythm. No murmurs, rubs, or gallops. Distal pulses are 2+ and symmetric. PULMONARY: No evidence of respiratory distress. Lungs clear to auscultation bilaterally. No wheezing, rales or rhonchi. ABDOMINAL: Soft. Non-tender. Non-distended. No rebound or guarding. No organomegaly. Normoactive bowel sounds. MUSCULOSKELETAL Normal range of motion at all joints. No bony deformities or tenderness. No CVA tenderness. EXTREMITIES: No cyanosis. No clubbing. No edema. No calf tenderness. SKIN: Dry skin. Warm. Normal capillary refill. No rashes. No jaundice. NEUROLOGICAL: +Cogwheeling. Alert, awake, appropriate. Cranial nerves 2-12 intact. No deficits to light touch and temperature in face, upper extremities and lower extremities. No motor deficits in the in face, upper extremities and lower extremities. Normoreflexic in the upper and lower extremities. Normal speech. Toes are down-going bilaterally. Gait is normal without ataxia. PSYCHIATRIC: Cooperative. Good eye contact. Appropriate mood and affect. <Lien Mascorro - Last Filed: 02/16/17 22:58> - Vital Signs Last Vital Signs Temp Pulse Resp BP Pulse Ox 98.7 F 80 18 146/63 99 02/16/17 17:46 02/16/17 17:46 02/16/17 17:46 02/16/17 17:46 02/16/17 17:46 <Alice Barnett - Last Filed: 02/18/17 01:13> ED Treatment Course - LABORATORY CBC & Chemistry Diagram: 02/16/17 18:50 02/16/17 18:50 - ADDITIONAL ORDERS Additional order review: Laboratory Results 02/16/17 02/16/17 02/16/17 18:50 18:22 18:22 PT with INR 12.50 H INR 1.11 Puncture Site Right radial ABG pH 7.29 L ABG pCO2 at Pt Temp 24.8 L ABG pO2 at Pt Temp 97.0 D ABG HCO3 11.4 L* ABG O2 Sat (Measured) 97.5 ABG O2 Content 16.1 ABG Base Excess -13.6 L* You Test Positive Carboxyhemoglobin 2.2 H Methemoglobin 1.0 O2 Delivery Device Room air 02/16/17 18:50 RBC 3.73 D MCV 106.1 H D MCHC 31.8 L RDW 14.5 MPV 8.8 Neutrophils % 83.7 H Lymphocytes % 10.8 Monocytes % 4.6 Eosinophils % 0.4 Basophils % 0.5 <Lien Mascorro - Last Filed: 02/16/17 22:58> - LABORATORY CBC & Chemistry Diagram: 02/17/17 05:00 02/17/17 20:20 - ADDITIONAL ORDERS Additional order review: Laboratory Results 02/16/17 02/16/17 02/16/17 18:50 18:22 18:22 PT with INR 12.50 H INR 1.11 Puncture Site Right radial ABG pH 7.29 L ABG pCO2 at Pt Temp 24.8 L ABG pO2 at Pt Temp 97.0 D ABG HCO3 11.4 L* ABG O2 Sat (Measured) 97.5 ABG O2 Content 16.1 ABG Base Excess -13.6 L* You Test Positive Carboxyhemoglobin 2.2 H Methemoglobin 1.0 O2 Delivery Device Room air 02/16/17 18:50 RBC 3.73 D MCV 106.1 H D MCHC 31.8 L RDW 14.5 MPV 8.8 Neutrophils % 83.7 H Lymphocytes % 10.8 Monocytes % 4.6 Eosinophils % 0.4 Basophils % 0.5 <Alice Barnett - Last Filed: 02/18/17 01:13> Medical Decision Making - Medical Decision Making 02/16/17 21:39 Dr. Darden paged via phone answering service Awaiting call back. 02/16/17 21:48 Dr. Mae Starr paged. Awaiting called back. 02/16/17 21:56 Mae Starr returned the page and the patients case was discussed. 02/16/17 22:50 Patient vomitted coffee ground emesis. <Lien Mascorro - Last Filed: 02/16/17 22:58> - Medical Decision Making this pt admitted for DKA, pt is IDDM and p/w nausea and vomiting, she denies any abdominal pain + large ketones , glucose>400 pt started on insulin gtt and went to ICU <Alice Barnett - Last Filed: 02/18/17 01:13> *DC/Admit/Observation/Transfer - Attestations Scribe Attestion: 02/16/17 20:10 Documentation prepared by Lien Mascorro, acting as paramedical aide for Alice Barnett MD <Lien Mascorro - Last Filed: 02/16/17 22:58> - Discharge Dispostion Admit: Yes <Alice Barnett - Last Filed: 02/18/17 01:13> Diagnosis at time of Disposition: Hyperkalemia, Lactic acidosis DKA (diabetic ketoacidoses) Qualifiers: Diabetes mellitus type: type 1 Diabetes mellitus complication detail: without coma Qualified Code(s): E10.10 - Type 1 diabetes mellitus with ketoacidosis without coma
[2017-02-16 20:23] LABS: ALBUMIN 3.3 g/dl (3.4-5.0); ANION GAP 25 (8-16); BLOOD UREA NITROGEN 16 mg/dL (7-18); CALCIUM 9.7 mg/dL (8.5-10.1); CHLORIDE 92 mmol/L (98-107); CO2 15 mmol/L (21-32); CREATININE 0.9 mg/dL (0.55-1.02); POTASSIUM 5.7 mmol/L (3.5-5.1); SGOT/AST 17 U/L (15-37); SODIUM 132 mmol/L (136-145); TOT PROT 7.3 g/dl (6.4-8.2)
[2017-02-16 20:37] LABS: ALK PHOS 209 U/L (45-117); BILIRUBIN,TOTAL 0.6 mg/dL (0.2-1.0); SGPT/ALT 20 U/L (12-78)
[2017-02-16 20:40] LABS: GLUCOSE,RANDOM 432 mg/dL (74-106)
[2017-02-16 21:37] LABS: URINE APPEARANCE SLCLOUDY; URINE BILIRUBIN NEGATIVE (NEGATIVE); URINE BLOOD 1+ (NEGATIVE); URINE COLOR STRAW; URINE GLUCOSE (UA) 3+ (NEGATIVE); URINE KETONE 2+ (NEGATIVE); URINE NITRITE NEGATIVE (NEGATIVE); URINE PROTEIN NEGATIVE (NEGATIVE); URINE UROBILINOGEN NEGATIVE mg/dL (0.2-1.0)
[2017-02-16 21:44] LABS: EPI CELLS RARE /HPF (FEW); URINE BACTERIA RARE /hpf (NONE SEEN); URINE MUCUS RARE
[2017-02-16] MEDS ORDERED: INSULIN REGULAR 100 UNITS in SODIUM CHLORIDE 99 ML IVPB SCH (21:45)
[2017-02-16] MEDS ORDERED: INSULIN REGULAR HUMAN 100 UNITS/ML *VIAL IVPUSH STA (23:09)
[2017-02-16] MEDS ORDERED: INSULIN REGULAR HUMAN 100 UNITS/ML *VIAL ONE (23:32)
[2017-02-17] MEDS ORDERED: ACETAMINOPHEN 1000 MG/100 ML VIAL (NON FORMULARY) IVPB ONE (00:21)
[2017-02-17] MEDS ORDERED: HYDROmorphone HCL CARPU-JECT 1 MG/1 ML DISP.SYRIN IVPB ONE (00:41)
[2017-02-17 01:37] VITALS: BMI 20.8
--- NOTE | 2017-02-17 02:00 | CONSULT ---
Consult Consult Specialty:: PULM/CCM Reason for Consultation:: DKA - History of Present Illness Chief Complaint: DKA History of Present Illness: Ms. Mendoza is a 56 y/o woman, w/ CAD, [place] (w/ stents), COPD, DM, & essential tremor s/p TBI. Pt presents to the ED c/o sudden onset N/V w/ assoc diffuse abd cramping & decreased PO intake. Of note: Pt was most recently admitted to [facility] for L hip fracture and was (wa'ed on 01/27/2017). Also to note: the reports that her insulin meds recently changed last week. Patient denies chest pain, headache or dizziness. Patient denies fever, chills, diarrhea or constipation. Patient denies dysuria, frequency, urgency or hematuria. Patient denies sick contacts or recent travel. In ED pt remark for a BGL > 400, a GAP of 25, & + ketones in urine. Pt admitted to the ICU for DKA. - History Source History Provided By: Patient, Medical Record Limitations to Obtaining History: No Limitations - Past Medical History [employer]: Yes: Other (Essential tremor) Cardio/Vascular: Yes: CAD (with stents), [place] Pulmonary: Yes: COPD, Other (Smoker) Endocrine: Yes: Diabetes Mellitus (since age 3), Other (DKA. Hypoglicemia) Additional Medical History: neuropathy, tremors - Past Surgical History Past Surgical History: Yes: CABG (3 stents) - Alcohol/Substance Use Hx Alcohol Use: No - Smoking History Smoking history: Unknown if ever smoked Have you smoked in the past 12 months: No Aproximately how many cigarettes per day: 4 - Social History Usual Living Arrangement: With Child ADL: Independent History of Recent Travel: No Home Medications - Allergies Allergies/Adverse Reactions: Allergies Allergy/AdvReac Type Severity Reaction Status Date / Time No Known Drug Allergies Allergy Verified 02/16/17 19:59 - Home Medications Home Medications: Ambulatory Orders Aspirin [ASA -] 81 mg PO DAILY 01/23/16 Clopidogrel Bisulfate [Clopidogrel] 75 mg PO DAILY 01/23/16 Primidone [Mysoline] 750 mg PO DAILY 07/17/16 Acetaminophen [Tylenol .Regular Strength -] 650 mg PO Q6H PRN tablet 01/27/17 Hydromorphone [Dilaudid -] 2 mg PO Q6H PRN #28 tablet MDD 4 01/27/17 Insulin (Novolog 70/30) [Novolog Mix 70/30 Vial -] 8 units SQ ACDIN vial Lisinopril [Prinivil] 2.5 mg PO DAILY tablet 01/27/17 Insulin (Novolog 70/30) [Novolog Mix 70/30 Vial -] 28 units SQ ACBK 02/16/17 Family Disease History - Family Disease History Family Disease History: Heart Disease: Mother, Respiratory: Sister (asthma), Other: Father (volvulus) Review of Systems - Review of Systems Constitutional: reports: No Symptoms Eyes: reports: No Symptoms HENT: reports: No Symptoms Neck: reports: No Symptoms Cardiovascular: reports: No Symptoms Gastrointestinal: reports: Abdominal Pain, Diarrhea, Nausea, Vomiting Genitourinary: reports: No Symptoms Breasts: reports: No Symptoms Reported Musculoskeletal: reports: No Symptoms Integumentary: reports: No Symptoms Neurological: reports: No Symptoms Endocrine: reports: No Symptoms Hematology/Lymphatic: reports: No Symptoms Psychiatric: reports: No Symptoms Pain Intensity: 9 Physical Exam Vital Signs: Vital Signs Temperature 98.9 F 02/16/17 21:47 Pulse Rate 111 H 02/16/17 21:47 Respiratory Rate 20 02/16/17 21:47 Blood Pressure 146/63 02/16/17 17:46 O2 Sat by Pulse Oximetry (%) 99 02/16/17 17:46 Constitutional: Yes: Well Nourished, No Distress, Calm Eyes: Yes: WNL, Conjunctiva Clear, EOM Intact HENT: Yes: WNL, Atraumatic, Normocephalic Neck: Yes: WNL, Supple, Trachea Midline Cardiovascular: Yes: WNL, Regular Rate and Rhythm Respiratory: Yes: WNL, Regular, CTA Bilaterally Gastrointestinal: Yes: WNL ...Rectal Exam: Yes: Deferred Renal/: Yes: WNL Breast(s): Yes: WNL Musculoskeletal: Yes: WNL Extremities: Yes: WNL Edema: No Peripheral Pulses WNL: Yes Integumentary: Yes: WNL Neurological: Yes: WNL, Alert, Oriented Psychiatric: Yes: WNL, Alert, Oriented Labs: CBC, BMP 02/16/17 18:50 02/16/17 18:50 Abnormal Lab Results 02/16/17 02/16/17 02/16/17 18:22 18:22 18:50 WBC 13.4 H D MCV 106.1 H D MCHC 31.8 L Neutrophils % 83.7 H PT with INR ABG pH 7.29 L ABG pCO2 at Pt Temp 24.8 L ABG HCO3 11.4 L* ABG Base Excess -13.6 L* Carboxyhemoglobin 2.2 H Sodium Potassium Chloride Carbon Dioxide Anion Gap Random Glucose Alkaline Phosphatase Albumin Urine Glucose (UA) Urine Ketones Urine Blood Acetone, Qual 02/16/17 02/16/17 02/16/17 18:50 18:50 18:50 WBC MCV MCHC Neutrophils % PT with INR 12.50 H ABG pH ABG pCO2 at Pt Temp ABG HCO3 ABG Base Excess Carboxyhemoglobin Sodium 132 L Potassium 5.7 H D Chloride 92 L Carbon Dioxide 15 L D Anion Gap 25 H Random Glucose 432 H* D Alkaline Phosphatase 209 H D Albumin 3.3 L D Urine Glucose (UA) Urine Ketones Urine Blood Acetone, Qual Positive large 3+ H 02/16/17 21:40 WBC MCV MCHC Neutrophils % PT with INR ABG pH ABG pCO2 at Pt Temp ABG HCO3 ABG Base Excess Carboxyhemoglobin Sodium Potassium Chloride Carbon Dioxide Anion Gap Random Glucose Alkaline Phosphatase Albumin Urine Glucose (UA) 3+ H Urine Ketones 2+ H Urine Blood 1+ H Acetone, Qual Imaging - Results Chest X-ray: Image Reviewed (Clear (My Read).) Problem List - Problems (1) DKA (diabetic ketoacidoses) Code(s): E13.10 - OTH DIABETES MELLITUS WITH KETOACIDOSIS WITHOUT COMA Qualifiers: Diabetes mellitus type: type 1 Diabetes mellitus complication detail: without coma Qualified Code(s): E10.10 - Type 1 diabetes mellitus with ketoacidosis without coma (2) Diabetes Code(s): E11.9 - TYPE 2 DIABETES MELLITUS WITHOUT COMPLICATIONS Qualifiers: Diabetes mellitus type: type 2 Diabetes mellitus complication status: with hypoglycemia Diabetes mellitus complication detail: without coma Assessment/Plan ASSESS: This is a 56 y/o woman, w/ CAD, [place] (w/ stents), COPD, DM, & essential tremor s/p TBI who presents now w/ DKA in the setting of changing her DM meds. PLAN: -[facility] Clxr -Insulin gtt (DKA protocol) -DO NOT shut off gtt until pt has resumed eating -Start D5 prn -ENDO -IVFs -Strict I's & O's -Replete e-lytes prn -Transfer to Med Surg as soon as pt resumes eating. DGL, ACNP-BC [facility] ICU PULM/CCM
[2017-02-17] MEDS ORDERED: SODIUM CHLORIDE 1,000 ML IV ONE (03:00)
[2017-02-17 06:07] LABS: BASO % 0.5 % (0-2.0); EOS % 0.3 % (0-4.5); HEMATOCRIT 29.5 % (32.4-45.2); HEMOGLOBIN 9.9 GM/dL (10.7-15.3); LYMPH % 19.3 % (8-40); MCH 34.3 pg (25.7-33.7); MCHC 33.7 g/dl (32.0-36.0); MEAN CELL VOLUME 101.9 fl (80-96); MEAN PLT VOLUME 8.5 fl (7.5-11.1); MONO % 7.8 % (3.8-10.2); NEUT % 72.1 % (42.8-82.8); PLATELET COUNT 321 K/MM3 (134-434); RBC 2.89 M/mm3 (3.60-5.2); RDW 13.9 % (11.6-15.6); WHITE BLOOD COUNT 14.4 K/mm3 (4.0-10.0)
[2017-02-17 06:26] LABS: ALBUMIN 2.4 g/dl (3.4-5.0); ANION GAP 14 (8-16); BLOOD UREA NITROGEN 15 mg/dL (7-18); CALCIUM 8.2 mg/dL (8.5-10.1); CHLORIDE 106 mmol/L (98-107); CO2 18 mmol/L (21-32); GLUCOSE,RANDOM 152 mg/dL (74-106); MAGNESIUM 1.7 mg/dL (1.8-2.4); POTASSIUM 4.2 mmol/L (3.5-5.1); SODIUM 138 mmol/L (136-145)
[2017-02-17 06:29] LABS: ALK PHOS 144 U/L (45-117); BILIRUBIN,TOTAL 0.4 mg/dL (0.2-1.0); CREATININE 0.8 mg/dL (0.55-1.02); PHOSPHOROUS 1.6 mg/dL (2.5-4.9); SGOT/AST 8 U/L (15-37); SGPT/ALT 16 U/L (12-78); TOT PROT 5.3 g/dl (6.4-8.2)
[2017-02-17] MEDS ORDERED: SODIUM CHLORIDE 0.9% 1000 ML INFUS.BAG IV ONE ×3 (06:29→09:25)
[2017-02-17] MEDS ORDERED: DEXTROSE 5%-0.45% SALINE 1,000 ML IV SCH ×2 (06:30→18:16)
[2017-02-17] MEDS ORDERED: FLU VACCINE QUAD 60 MCG/0.5 ML (MDV 17-18) IM ONE (09:00)
[2017-02-17] MEDS ORDERED: SODIUM CHLORIDE 500 ML IV STA (09:24)
--- NOTE | 2017-02-17 10:06 | HP ---
Admitting History and Physical - Primary Care Physician PCP: Flex Starr - Admission Chief Complaint: High Glucose History of Present Illness: Pt came to ER with high glucose on BGM at home. Pt states that BGM at home varies from 300 to 500, for the last couple of days; pt also developed nausea and yesterday couldn't eat much and vomited twice. Pt also reports that she self adjusted her Insulin 70/30 to: 38 units AC breakfast (from 28 units) and 20 units AC dinner(from 8 units). 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 Hypoglicemia) Additional Past Medical History: Gastroparesis, Diabetic Neuropathy. DKA Hypoglicemic State - Past Surgical History Past Surgical History: Yes: CABG (3 stents) Additional Past Surgical History: Left Knee FX Left hip FX, s/p ORIF - Smoking History Smoking history: Unknown if ever smoked Have you smoked in the past 12 months: No Aproximately how many cigarettes per day: 4 - Alcohol/Substance Use Hx Alcohol Use: No - Social History ADL: Independent History of Recent Travel: No Home Medications - Allergies Allergies/Adverse Reactions: Allergies Allergy/AdvReac Type Severity Reaction Status Date / Time No Known Drug Allergies Allergy Verified 02/16/17 19:59 - Home Medications Home Medications: Ambulatory Orders RX: Aspirin [ASA -] 81 mg PO DAILY 01/23/16 RX: Clopidogrel Bisulfate [Clopidogrel] 75 mg PO DAILY 01/23/16 RX: Primidone [Mysoline] 750 mg PO DAILY 07/17/16 RX: Acetaminophen [Tylenol .Regular Strength -] 650 mg PO Q6H PRN tablet RX: Hydromorphone [Dilaudid -] 2 mg PO Q6H PRN #28 tablet MDD 4 01/27/17 RX: Insulin (Novolog 70/30) [Novolog Mix 70/30 Vial -] 8 units SQ ACDIN vial RX: Lisinopril [Prinivil] 2.5 mg PO DAILY tablet 01/27/17 RX: Insulin (Novolog 70/30) [Novolog Mix 70/30 Vial -] 28 units SQ ACBK Family Disease History - Family Disease History Family Disease History: Heart Disease: Mother, Respiratory: Sister (asthma), Other: Father (volvulus) Review of Systems - Review of Systems Constitutional: denies: Chills, Fever Eyes: denies: Blurred Vision, Recent Change in Vision HENT: denies: Difficult Swallowing, Ear Discharge, Ear Pain, Nasal Congestion, Throat Pain Neck: denies: Decreased ROM, Stiffness Cardiovascular: reports: Edema, Palpitations. denies: Chest Pain Respiratory: denies: Cough, Hemoptysis, SOB, Wheezing Gastrointestinal: reports: Nausea. denies: Abdominal Pain, Diarrhea Genitourinary: denies: Burning, Discharge, Dysuria, Frequency Musculoskeletal: denies: Back Pain, Joint Swelling, Muscle Pain Integumentary: denies: Blister, Eczema, Rash Neurological: denies: Change in Speech, Confusion, Numbness Endocrine: denies: Excessive Sweating, Intolerance to Cold Hematology/Lymphatic: denies: Easily Bruised, Excessive Bleeding Psychiatric: denies: Anxiety, Hallucinations Physical Examination Vital Signs: Vital Signs Temperature 99.7 F H 02/17/17 07:25 Pulse Rate 92 H 02/17/17 09:45 Respiratory Rate 20 02/17/17 09:45 Blood Pressure 108/47 02/17/17 09:45 O2 Sat by Pulse Oximetry (%) 97 02/17/17 07:48 Constitutional: Yes: No Distress, Calm Eyes: Yes: Conjunctiva Clear, EOM Intact, PERRL HENT: Yes: Normocephalic. No: Epistaxis, Pharyngeal Erythema, Rhinnorhea, Thrush Neck: Yes: Trachea Midline. No: Lymphadenopathy Cardiovascular: Yes: Regular Rate and Rhythm, S1, S2 Respiratory: Yes: Regular, Other (coarse BS). No: Rales Gastrointestinal: Yes: Normal Bowel Sounds, Soft. No: Palpable Mass, Tenderness ...Rectal Exam: Yes: Deferred Breast(s): Yes: Other (deferred) Musculoskeletal: No: Back Pain, Joint Swelling Edema: No Neurological: Yes: Alert, Oriented, Tremors (of head, extremities- old), Other Psychiatric: Yes: Alert, Oriented Labs: CBC, BMP 02/17/17 05:00 02/17/17 05:00 Imaging - Results Chest X-ray: Report Reviewed Problem List - Problems (1) DKA (diabetic ketoacidoses) Code(s): E13.10 - OTH DIABETES MELLITUS WITH KETOACIDOSIS WITHOUT COMA Qualifiers: Diabetes mellitus type: type 1 Diabetes mellitus complication detail: without coma Qualified Code(s): E10.10 - Type 1 diabetes mellitus with ketoacidosis without coma (2) Nausea and vomiting Code(s): R11.2 - NAUSEA WITH VOMITING, UNSPECIFIED (3) Diabetes mellitus Code(s): E11.9 - TYPE 2 DIABETES MELLITUS WITHOUT COMPLICATIONS (4) Diabetic gastroparesis Code(s): E11.43 - TYPE 2 DIABETES W DIABETIC AUTONOMIC (POLY)NEUROPATHY; K31.84 - GASTROPARESIS (5) Leukocytosis Code(s): D72.829 - ELEVATED WHITE BLOOD CELL COUNT, UNSPECIFIED (6) Hypomagnesemia Code(s): E83.42 - HYPOMAGNESEMIA (7) Hypophosphatasia Code(s): E83.39 - OTHER DISORDERS OF PHOSPHORUS METABOLISM (8) Essential tremor Code(s): G25.0 - ESSENTIAL TREMOR (9) CAD (coronary artery disease) Code(s): I25.10 - ATHSCL HEART DISEASE OF [place] CORONARY ARTERY W/O ANG PCTRS (10) COPD (chronic obstructive pulmonary disease) Code(s): J44.9 - CHRONIC OBSTRUCTIVE PULMONARY DISEASE, UNSPECIFIED Assessment/Plan Admit to ICU Insulin Drip, now off (secondary to decrease in Glc level) IVF (NS) Monitor BGM DKA protocol CCM Comsult Endo Consult Replete electrolytes Repeat labs Case was d/w pt's nurse. AM labs Prognosis: reserved. Time spent for managing pt's care: 55 minutes.
[2017-02-17] MEDS ORDERED: ONDANSETRON 4 MG/2 ML VIAL IVPB PRN ×2 (10:26→18:16)
[2017-02-17] MEDS ORDERED: INSULIN (NOVOLOG) ASPART 100 UNITS/ML 10ML VIAL ONE (10:36)
[2017-02-17] MEDS: INSULIN SLIDING SCALE (NOVOLOG) 1 VIAL SQ SCH ×3 (10:37→21:31)
[2017-02-17 11:18] LABS: URINE LEUK ESTERASE TRACE (NEGATIVE)
[2017-02-17 11:33] LABS: ANION GAP 13 (8-16); BLOOD UREA NITROGEN 11 mg/dL (7-18); CALCIUM 7.5 mg/dL (8.5-10.1); CHLORIDE 105 mmol/L (98-107); CO2 19 mmol/L (21-32); CREATININE 0.8 mg/dL (0.55-1.02); GLUCOSE,RANDOM 250 mg/dL (74-106); MAGNESIUM 1.7 mg/dL (1.8-2.4); POTASSIUM 4.2 mmol/L (3.5-5.1); SODIUM 137 mmol/L (136-145)
[2017-02-17] MEDS ORDERED: METOCLOPRAMIDE HCL INJECTION 10 MG/2 ML VIAL IVPUSH PRN ×2 (12:19→18:16)
--- NOTE | 2017-02-17 13:41 | PN ---
Physical Exam: SUBJECTIVE: The patient is a 56F with a PMH of DM, CAD, MS s/p stents, and essential tremor s/p TBI who presented to the ER with nausea, vomiting, with associated abdominal pain. The aptient was found to be in DKA with a BG >400, AG of 25, and positive ketones in her urine. She was started on fluids and an insulin drip. The patient has no acute events overnight. She became hypoglycemic to 66 this morning and insulin was d/c-ed and continues to be discontinued. Fluids are continuous. The patient denies fever, chills, nausea, vomiting, CP, SOB. OBJECTIVE: Vital Signs Period Temp Pulse Resp BP Sys/Chen Pulse Ox Last 24 Hr 98.7 F-99.7 F 80-111 16-22 97-146/33-73 96-99 GENERAL: The patient is awake, alert, and fully oriented, in no acute distress. HEAD: Normal with no signs of trauma. EYES: PERRL, extraocular movements intact, sclera anicteric, conjunctiva clear. No ptosis. NECK: Trachea midline, full range of motion, supple. LUNGS: Breath sounds equal, clear to auscultation bilaterally, no wheezes, no crackles, no accessory muscle use. HEART: Regular rate and rhythm, S1, S2 without murmur, rub or gallop. ABDOMEN: Soft, nontender, nondistended, normoactive bowel sounds, no guarding, no rebound, no hepatosplenomegaly, no masses. EXTREMITIES: 2+ pulses, warm, well-perfused, no edema. NEUROLOGICAL: Cranial nerves II through XII grossly intact. Normal speech, gait not observed. PSYCH: Normal mood, normal affect. SKIN: Warm, dry, normal turgor, no rashes or lesions noted Laboratory Results - last 24 hr 02/16/17 02/16/17 02/16/17 18:22 18:22 18:50 WBC 13.4 H D RBC 3.73 D Hgb 12.6 D Hct 39.5 D MCV 106.1 H D MCH 33.7 MCHC 31.8 L RDW 14.5 Plt Count 389 D MPV 8.8 Neutrophils % 83.7 H Lymphocytes % 10.8 Monocytes % 4.6 Eosinophils % 0.4 Basophils % 0.5 PT with INR INR Puncture Site Right radial ABG pH 7.29 L ABG pCO2 at Pt Temp 24.8 L ABG pO2 at Pt Temp 97.0 D ABG HCO3 11.4 L* ABG O2 Sat (Measured) 97.5 ABG O2 Content 16.1 ABG Base Excess -13.6 L* You Test Positive Carboxyhemoglobin 2.2 H Methemoglobin 1.0 O2 Delivery Device Room air Sodium Potassium Chloride Carbon Dioxide Anion Gap BUN Creatinine Creat Clearance w eGFR POC Glucometer Random Glucose Calcium Phosphorus Magnesium Total Bilirubin AST ALT Alkaline Phosphatase Total Protein Albumin Urine Color Urine Appearance Urine pH Ur Specific [place] Urine Protein Urine Glucose (UA) Urine Ketones Urine Blood Urine Nitrite Urine Bilirubin Urine Urobilinogen Ur Leukocyte Esterase Urine WBC (Auto) Urine RBC (Auto) Ur Epithelial Cells Urine Bacteria Urine Mucus Acetone, Qual 02/16/17 02/16/17 02/16/17 18:50 18:50 18:50 WBC RBC Hgb Hct MCV MCH MCHC RDW Plt Count MPV Neutrophils % Lymphocytes % Monocytes % Eosinophils % Basophils % PT with INR 12.50 H INR 1.11 Puncture Site ABG pH ABG pCO2 at Pt Temp ABG pO2 at Pt Temp ABG HCO3 ABG O2 Sat (Measured) ABG O2 Content ABG Base Excess You Test Carboxyhemoglobin Methemoglobin O2 Delivery Device Sodium 132 L Potassium 5.7 H D Chloride 92 L Carbon Dioxide 15 L D Anion Gap 25 H BUN 16 D Creatinine 0.9 D Creat Clearance w eGFR > 60 POC Glucometer Random Glucose 432 H* D Calcium 9.7 D Phosphorus Magnesium Total Bilirubin 0.6 AST 17 D ALT 20 D Alkaline Phosphatase 209 H D Total Protein 7.3 D Albumin 3.3 L D Urine Color Urine Appearance Urine pH Ur Specific [place] Urine Protein Urine Glucose (UA) Urine Ketones Urine Blood Urine Nitrite Urine Bilirubin Urine Urobilinogen Ur Leukocyte Esterase Urine WBC (Auto) Urine RBC (Auto) Ur Epithelial Cells Urine Bacteria Urine Mucus Acetone, Qual Positive large 3+ H 02/16/17 02/17/17 02/17/17 21:40 01:15 02:35 WBC RBC Hgb Hct MCV MCH MCHC RDW Plt Count MPV Neutrophils % Lymphocytes % Monocytes % Eosinophils % Basophils % PT with INR INR Puncture Site ABG pH ABG pCO2 at Pt Temp ABG pO2 at Pt Temp ABG HCO3 ABG O2 Sat (Measured) ABG O2 Content ABG Base Excess You Test Carboxyhemoglobin Methemoglobin O2 Delivery Device Sodium Potassium Chloride Carbon Dioxide Anion Gap BUN Creatinine Creat Clearance w eGFR POC Glucometer 310.67283 269.06234 Random Glucose Calcium Phosphorus Magnesium Total Bilirubin AST ALT Alkaline Phosphatase Total Protein Albumin Urine Color Straw Urine Appearance Slcloudy Urine pH 5.0 Ur Specific [place] 1.021 Urine Protein Negative Urine Glucose (UA) 3+ H Urine Ketones 2+ H Urine Blood 1+ H Urine Nitrite Negative Urine Bilirubin Negative Urine Urobilinogen Negative Ur Leukocyte Esterase Trace H Urine WBC (Auto) 9 Urine RBC (Auto) 1 Ur Epithelial Cells Rare Urine Bacteria Rare Urine Mucus Rare Acetone, Qual 02/17/17 02/17/17 02/17/17 04:06 05:00 05:00 WBC 14.4 H RBC 2.89 L D Hgb 9.9 L D Hct 29.5 L D MCV 101.9 H MCH 34.3 H MCHC 33.7 RDW 13.9 Plt Count 321 MPV 8.5 Neutrophils % 72.1 Lymphocytes % 19.3 D Monocytes % 7.8 Eosinophils % 0.3 Basophils % 0.5 PT with INR INR Puncture Site ABG pH ABG pCO2 at Pt Temp ABG pO2 at Pt Temp ABG HCO3 ABG O2 Sat (Measured) ABG O2 Content ABG Base Excess You Test Carboxyhemoglobin Methemoglobin O2 Delivery Device Sodium 138 Potassium 4.2 D Chloride 106 D Carbon Dioxide 18 L Anion Gap 14 BUN 15 Creatinine 0.8 Creat Clearance w eGFR > 60 POC Glucometer 133.00913 Random Glucose 152 H D Calcium 8.2 L Phosphorus 1.6 L D Magnesium 1.7 L D Total Bilirubin 0.4 D AST 8 L D ALT 16 Alkaline Phosphatase 144 H D Total Protein 5.3 L D Albumin 2.4 L D Urine Color Urine Appearance Urine pH Ur Specific [place] Urine Protein Urine Glucose (UA) Urine Ketones Urine Blood Urine Nitrite Urine Bilirubin Urine Urobilinogen Ur Leukocyte Esterase Urine WBC (Auto) Urine RBC (Auto) Ur Epithelial Cells Urine Bacteria Urine Mucus Acetone, Qual 02/17/17 02/17/17 02/17/17 05:25 06:50 07:55 WBC RBC Hgb Hct MCV MCH MCHC RDW Plt Count MPV Neutrophils % Lymphocytes % Monocytes % Eosinophils % Basophils % PT with INR INR Puncture Site ABG pH ABG pCO2 at Pt Temp ABG pO2 at Pt Temp ABG HCO3 ABG O2 Sat (Measured) ABG O2 Content ABG Base Excess You Test Carboxyhemoglobin Methemoglobin O2 Delivery Device Sodium Potassium Chloride Carbon Dioxide Anion Gap BUN Creatinine Creat Clearance w eGFR POC Glucometer 162.11891 113.89400 62.98750 Random Glucose Calcium Phosphorus Magnesium Total Bilirubin AST ALT Alkaline Phosphatase Total Protein Albumin Urine Color Urine Appearance Urine pH Ur Specific [place] Urine Protein Urine Glucose (UA) Urine Ketones Urine Blood Urine Nitrite Urine Bilirubin Urine Urobilinogen Ur Leukocyte Esterase Urine WBC (Auto) Urine RBC (Auto) Ur Epithelial Cells Urine Bacteria Urine Mucus Acetone, Qual 02/17/17 02/17/17 02/17/17 08:33 10:17 10:55 WBC RBC Hgb Hct MCV MCH MCHC RDW Plt Count MPV Neutrophils % Lymphocytes % Monocytes % Eosinophils % Basophils % PT with INR INR Puncture Site ABG pH ABG pCO2 at Pt Temp ABG pO2 at Pt Temp ABG HCO3 ABG O2 Sat (Measured) ABG O2 Content ABG Base Excess You Test Carboxyhemoglobin Methemoglobin O2 Delivery Device Sodium 137 Potassium 4.2 Chloride 105 Carbon Dioxide 19 L Anion Gap 13 BUN 11 D Creatinine 0.8 Creat Clearance w eGFR POC Glucometer 119.02122 255.82995 Random Glucose 250 H D Calcium 7.5 L Phosphorus 2.0 L D Magnesium 1.7 L Total Bilirubin AST ALT Alkaline Phosphatase Total Protein Albumin Urine Color Urine Appearance Urine pH Ur Specific [place] Urine Protein Urine Glucose (UA) Urine Ketones Urine Blood Urine Nitrite Urine Bilirubin Urine Urobilinogen Ur Leukocyte Esterase Urine WBC (Auto) Urine RBC (Auto) Ur Epithelial Cells Urine Bacteria Urine Mucus Acetone, Qual 02/17/17 12:05 WBC RBC Hgb Hct MCV MCH MCHC RDW Plt Count MPV Neutrophils % Lymphocytes % Monocytes % Eosinophils % Basophils % PT with INR INR Puncture Site ABG pH ABG pCO2 at Pt Temp ABG pO2 at Pt Temp ABG HCO3 ABG O2 Sat (Measured) ABG O2 Content ABG Base Excess You Test Carboxyhemoglobin Methemoglobin O2 Delivery Device Sodium Potassium Chloride Carbon Dioxide Anion Gap BUN Creatinine Creat Clearance w eGFR POC Glucometer 232.95036 Random Glucose Calcium Phosphorus Magnesium Total Bilirubin AST ALT Alkaline Phosphatase Total Protein Albumin Urine Color Urine Appearance Urine pH Ur Specific [place] Urine Protein Urine Glucose (UA) Urine Ketones Urine Blood Urine Nitrite Urine Bilirubin Urine Urobilinogen Ur Leukocyte Esterase Urine WBC (Auto) Urine RBC (Auto) Ur Epithelial Cells Urine Bacteria Urine Mucus Acetone, Qual Active Medications Generic Name Dose Route Start Last Admin Trade Name Freq PRN Reason Stop Dose Admin Heparin Sodium (Porcine) 5,000 unit 02/17/17 12:30 Heparin - SQ BID TAYLA Dextrose/Sodium Chloride 1,000 mls @ 42 mls/hr 02/17/17 06:30 02/17/17 06:51 D5-1/2ns - IV 42 mls/hr ASDIR TAYLA Administration Insulin Aspart 1 vial 02/17/17 14:00 Novolog Vial Sliding Scale - SQ Q2H TAYLA Protocol Metoclopramide HCl 10 mg 02/17/17 12:19 Reglan Injection - IVPUSH Q6H PRN NAUSEA AND/OR VOMITING Ondansetron HCl 4 mg 02/17/17 10:26 02/17/17 10:41 Zofran Injection IVPB 4 mg Q6H PRN Administration NAUSEA ASSESSMENT/PLAN: The patient is a 56F with a PMH of DM, CAD, MS w/ stents who presented to the ED in DKA and is now stable. Neuro: - Essential tremors s/p TBI - At baseline CV: CAD - ASA and Plavix now on board Pulm: COPD - Will add PRN nebs Renal: - : - GI: - ID: - Hem/Onc: - Endocrine: - MSK: - PPX: - FEN (Fluids, electrolytes, nutrition): - Dispo: - Visit type - Emergency Visit Emergency Visit: Yes ED Registration Date: 02/16/17 Care time: The patient presented to the Emergency Department on the above date and was hospitalized for further evaluation of their emergent condition. - New Patient This patient is new to me today: Yes Date on this admission: 02/17/17 - Critical Care Critical Care patient: Yes Total Critical Care Time (in minutes): 45 Critical Care Statement: The care of this patient involved high complexity decision making to prevent further life threatening deterioration of the patient 's condition and/or to evaluate & treat vital organ system(s) failure or risk of failure.
[2017-02-17] MEDS: HEPARIN NA (PORCINE) 5,000 UNITS/ML 1ML VIAL SQ SCH ×2 (13:46→14:30)
[2017-02-17] MEDS ORDERED: MAGNESIUM SULF 50% (8.12 MEQ/2 ML-1 GM VIAL) IVPB ONE (13:48)
[2017-02-17] MEDS ORDERED: ALBUTEROL SO4 2.5/IPRATROPIUM 0.5 INH SOL 3 ML VIAL.NEB. NEB PRN ×2 (13:48→18:16)
[2017-02-17] MEDS ORDERED: MAGNESIUM SULF 50% (8.12 MEQ/2 ML-1 GM VIAL) ONE (13:52)
[2017-02-17] MEDS ORDERED: CLOPIDOGREL BISULFATE 75 MG TABLET (FP) PO SCH (14:00)
[2017-02-17] MEDS ORDERED: INSULIN SLIDING SCALE (NOVOLOG) 1 VIAL SQ SCH ×2 (14:00→18:00)
[2017-02-17] MEDS ORDERED: ASPIRIN COATED 81 MG TABLET.EC PO SCH (14:00)
[2017-02-17] MEDS: CALCIUM ACETATE 667 MG CAPSULE (FP) PO SCH ×2 (14:56→16:43)
[2017-02-17] MEDS ORDERED: INSULIN DETEMIR 100 UNITS/ML MDV SQ ONE (19:00)
[2017-02-17 21:05] LABS: URINE APPEARANCE CLEAR; URINE BILIRUBIN NEGATIVE (NEGATIVE); URINE BLOOD 1+ (NEGATIVE); URINE COLOR LTYELLOW; URINE GLUCOSE (UA) 3+ (NEGATIVE); URINE KETONE 1+ (NEGATIVE); URINE NITRITE NEGATIVE (NEGATIVE); URINE PROTEIN NEGATIVE (NEGATIVE); URINE UROBILINOGEN NEGATIVE mg/dL (0.2-1.0)
[2017-02-17 21:08] LABS: EPI CELLS RARE /HPF (FEW); URINE MUCUS RARE
[2017-02-17 21:22] LABS: ANION GAP 11 (8-16); BLOOD UREA NITROGEN 8 mg/dL (7-18); CALCIUM 7.5 mg/dL (8.5-10.1); CHLORIDE 105 mmol/L (98-107); CO2 20 mmol/L (21-32); CREATININE 0.6 mg/dL (0.55-1.02); GLUCOSE,RANDOM 225 mg/dL (74-106); POTASSIUM 4.3 mmol/L (3.5-5.1); SODIUM 136 mmol/L (136-145)
[2017-02-17] MEDS ORDERED: HEPARIN NA (PORCINE) 5,000 UNITS/ML 1ML VIAL SQ SCH (22:00)
[2017-02-17 22:58] LABS: URINE LEUK ESTERASE Negative (NEGATIVE)
[2017-02-17] MEDS ORDERED: PANTOPRAZOLE SODIUM 40 MG VIAL IVPUSH ONE (23:00)
[2017-02-17] MEDS: NAPH,MB-DB/K PH,MBDB POWDER PACKET PO SCH (23:02)
[2017-02-18] MEDS: INSULIN SLIDING SCALE (NOVOLOG) 1 VIAL SQ SCH ×3 (01:37→13:12)
[2017-02-18] MEDS ORDERED: PANTOPRAZOLE SODIUM 40 MG VIAL IVPUSH SCH (06:00)
[2017-02-18 07:30] LABS: BASO % 0.6 % (0-2.0); EOS % 4.2 % (0-4.5); HEMATOCRIT 31.9 % (32.4-45.2); HEMOGLOBIN 10.5 GM/dL (10.7-15.3); LYMPH % 37.7 % (8-40); MCH 33.4 pg (25.7-33.7); MCHC 32.9 g/dl (32.0-36.0); MEAN CELL VOLUME 101.7 fl (80-96); MEAN PLT VOLUME 8.3 fl (7.5-11.1); MONO % 5.4 % (3.8-10.2); NEUT % 52.1 % (42.8-82.8); PLATELET COUNT 288 K/MM3 (134-434); RBC 3.14 M/mm3 (3.60-5.2); RDW 13.9 % (11.6-15.6); WHITE BLOOD COUNT 9.4 K/mm3 (4.0-10.0)
[2017-02-18 07:48] LABS: ALBUMIN 2.2 g/dl (3.4-5.0); ANION GAP 8 (8-16); BILIRUBIN,TOTAL 0.2 mg/dL (0.2-1.0); BLOOD UREA NITROGEN 4 mg/dL (7-18); CALCIUM 8.2 mg/dL (8.5-10.1); CHLORIDE 108 mmol/L (98-107); CO2 25 mmol/L (21-32); CREATININE 0.6 mg/dL (0.55-1.02); GLUCOSE,RANDOM 94 mg/dL (74-106); MAGNESIUM 2.1 mg/dL (1.8-2.4); PHOSPHOROUS 2.4 mg/dL (2.5-4.9); POTASSIUM 3.8 mmol/L (3.5-5.1); SGOT/AST 13 U/L (15-37); SGPT/ALT 14 U/L (12-78); SODIUM 141 mmol/L (136-145); TOT PROT 5.3 g/dl (6.4-8.2)
[2017-02-18 07:49] LABS: ALK PHOS 137 U/L (45-117)
--- NOTE | 2017-02-18 07:52 | EKG ---
Test Reason : Blood Pressure : / mmHG Vent. Rate : 097 BPM Atrial Rate : 097 BPM P-R Int : 176 ms QRS Dur : 070 ms QT Int : 404 ms P-R-T Axes : 076 046 068 degrees QTc Int : 513 ms POOR DATA QUALITY, INTERPRETATION MAY BE ADVERSELY AFFECTED Poor baseline Probably NORMAL SINUS RHYTHM NONSPECIFIC ST ABNORMALITY PROLONGED QT ABNORMAL ECG WHEN COMPARED WITH ECG OF 16-JAN-2017 16:58, ST NO LONGER DEPRESSED IN LATERAL LEADS Confirmed by MD Lazcano Daniel ([id number]) on 02/17/2017 2:52:22 PM Also confirmed by MD Lazcano Daniel ([id number]), website/blog editor NYA LIGHT ([id number]) on 02/18/2017 7:52:20 AM Referred By: Confirmed By:Nya Lazcano MD
[2017-02-18] MEDS ORDERED: CALCIUM ACETATE 667 MG CAPSULE (FP) PO SCH (08:00)
[2017-02-18] MEDS ORDERED: INSULIN (NOVOLOG MIX 70/30) 100 UNITS/ML MDV SQ ONE (09:00)
[2017-02-18] MEDS ORDERED: INSULIN (NOVOLOG) ASPART 100 UNITS/ML 10ML VIAL SQ ONE ×2 (09:00→11:30)
[2017-02-18] MEDS ORDERED: CLOPIDOGREL BISULFATE 75 MG TABLET (FP) PO SCH (10:00)
[2017-02-18] MEDS ORDERED: ASPIRIN COATED 81 MG TABLET.EC PO SCH (10:00)
[2017-02-18] MEDS: NAPH,MB-DB/K PH,MBDB POWDER PACKET PO SCH (10:30)
[2017-02-18 11:37] VITALS: BP 119/61
--- NOTE | 2017-02-18 11:50 | PN ---
Progress Note, Physician History of Present Illness: Pt w/o fever, chills, cough, sore throat, abd pain, discomfort with urination. - Current Medication List Current Medications: Active Medications Albuterol/Ipratropium (Duoneb -) 1 amp NEB Q4H PRN PRN Reason: SHORTNESS OF BREATH Aspirin (Ecotrin -) 81 mg PO DAILY [facility] Last Admin: 02/18/17 10:30 Dose: 81 mg Calcium Acetate (Phoslo -) 667 mg PO TIDCM [facility] Last Admin: 02/18/17 08:51 Dose: 667 mg Clopidogrel Bisulfate (Plavix -) 75 mg PO DAILY [facility] Last Admin: 02/18/17 10:30 Dose: 75 mg Heparin Sodium (Porcine) (Heparin -) 5,000 unit SQ BID [facility] Last Admin: 02/17/17 21:28 Dose: 5,000 unit Dextrose/Sodium Chloride (D5-1/2ns -) 1,000 mls @ 42 mls/hr IV ASDIR [facility] Last Admin: 02/17/17 21:26 Dose: Not Given Insulin Aspart (Novolog Vial Sliding Scale -) 1 vial SQ Q4HPO [facility] PRN Reason: Protocol Last Admin: 02/18/17 06:00 Dose: Not Given Metoclopramide HCl (Reglan Injection -) 10 mg IVPUSH Q6H PRN PRN Reason: NAUSEA AND/OR VOMITING Ondansetron HCl (Zofran Injection) 4 mg IVPB Q6H PRN PRN Reason: NAUSEA Pantoprazole Sodium (Protonix Iv) 40 mg IVPUSH DAILY@0600 [facility] Last Admin: 02/18/17 05:23 Dose: 40 mg Potassium Phos/Sodium Phos (Phos-Nak Packet -) 1 packet PO BID [facility] Last Admin: 02/18/17 10:30 Dose: 1 packet - Objective Vital Signs: Vital Signs Temperature 98.3 F 02/18/17 09:00 Pulse Rate 78 02/18/17 09:00 Respiratory Rate 20 02/18/17 09:00 Blood Pressure 119/61 02/18/17 09:00 O2 Sat by Pulse Oximetry (%) 97 02/18/17 09:00 Constitutional: Yes: No Distress, Calm Cardiovascular: Yes: Regular Rate and Rhythm, S1, S2 Respiratory: Yes: Regular, CTA Bilaterally, Other (coarse BS) Gastrointestinal: Yes: Normal Bowel Sounds, Soft. No: Tenderness Edema: No Neurological: Yes: Alert, Oriented Labs: CBC, BMP 02/18/17 06:00 02/18/17 06:00 INR, PTT INR 1.11 (0.82-1.09) 02/16/17 18:50 Problem List - Problems (1) DKA (diabetic ketoacidoses) Code(s): E13.10 - OTH DIABETES MELLITUS WITH KETOACIDOSIS WITHOUT COMA Qualifiers: Diabetes mellitus type: type 1 Diabetes mellitus complication detail: without coma Qualified Code(s): E10.10 - Type 1 diabetes mellitus with ketoacidosis without coma (2) Nausea and vomiting Code(s): R11.2 - NAUSEA WITH VOMITING, UNSPECIFIED (3) Diabetes mellitus Code(s): E11.9 - TYPE 2 DIABETES MELLITUS WITHOUT COMPLICATIONS (4) Diabetic gastroparesis Code(s): E11.43 - TYPE 2 DIABETES W DIABETIC AUTONOMIC (POLY)NEUROPATHY; K31.84 - GASTROPARESIS (5) Leukocytosis Code(s): D72.829 - ELEVATED WHITE BLOOD CELL COUNT, UNSPECIFIED (6) Hypomagnesemia Code(s): E83.42 - HYPOMAGNESEMIA (7) Hypophosphatasia Code(s): E83.39 - OTHER DISORDERS OF PHOSPHORUS METABOLISM (8) Essential tremor Code(s): G25.0 - ESSENTIAL TREMOR (9) CAD (coronary artery disease) Code(s): I25.10 - ATHSCL HEART DISEASE OF [place] CORONARY ARTERY W/O ANG PCTRS (10) COPD (chronic obstructive pulmonary disease) Code(s): J44.9 - CHRONIC OBSTRUCTIVE PULMONARY DISEASE, UNSPECIFIED Assessment/Plan Admitted to ICU, now transferred to medical floor Off Insulin Drip. IVF (NS) Monitor BGM CCM Consult appreciated Endo Consult appreciated- Insulin per Dr. Darden Replete electrolytes Case was d/w pt's nurse. AM labs Prognosis: improved.
[2017-02-18 15:20] VITALS: PULSE 85; TEMP 99.2
== END 2017-02-18 15:21 | disposition left against medical advice (07) | DRG 639 ==
LOC: JER 17:46 → JERBED 21:47 → JICU 02-17 01:19 → J7W 02-18 00:14
PROVIDERS: ADMIT Specialist; ATTEND Specialist
DX: E10.10 Type 1 diabetes mellitus with ketoacidosis without coma (principal); I25.10 Atherosclerotic heart disease of native coronary artery without angina pectoris; I25.2 Old myocardial infarction; J44.9 Chronic obstructive pulmonary disease, unspecified; E10.43 Type 1 diabetes mellitus with diabetic autonomic (poly)neuropathy; K31.84 Gastroparesis; E78.00 Pure hypercholesterolemia, unspecified; G25.0 Essential tremor; E83.39 Other disorders of phosphorus metabolism; D72.829 Elevated white blood cell count, unspecified; F17.210 Nicotine dependence, cigarettes, uncomplicated; Z85.41 Personal history of malignant neoplasm of cervix uteri; Z95.1 Presence of aortocoronary bypass graft; Z95.5 Presence of coronary angioplasty implant and graft
CPT/HCPCS: 36415; 36600; 71010-TC; 80048; 80053; 81003; 81015; 82009; 82375; 82803; 83050; 83735; 84100; 85025; 85610; 90688; 93005; 93010; 97116-GP; 97161-GP; 99284-25; G0008; J1644

== ENCOUNTER 2017-03-06 17:37 | Inpatient (IN) | payer OTHER ==
--- NOTE | 2017-03-06 19:32 | PDOC ---
History of Present Illness - General History Source: Patient Exam Limitations: No Limitations - History of Present Illness Initial Comments: 03/06/17 20:51 The patient is a 56-year-old female living at home with daughter, with a significant past medical history of coronary artery disease, MS with stents, COPD, insulin-dependent diabetes, who presents to the ED s/p fall today. Pt states that was trying to get up using her walker to balance herself but the brakes were not on. She slid onto the floor and landed on her left shoulder. She denies any loss of consciousness or head trauma. Pt was able to call the ambulance. She is now complaining of left shoulder pain. She denies having any other injuries or symptoms. PCP: Dr. Flex Starr <Becca Raya - Last Filed: 03/06/17 20:51> <Roxie Hughes - Last Filed: 03/07/17 01:32> - General Chief Complaint: Pain, Acute Stated Complaint: SHOULDER PAIN Time Seen by Provider: 03/06/17 19:03 Past History <Becca Raya - Last Filed: 03/06/17 20:51> - Past Medical History Anemia: No Asthma: No Cancer: Yes (VAGINAL/CERVICAL CANCER- S/P LASAR SURGERY) Cardiac Disorders: Yes (ASHD, TRIPLE BYPASS, S/P MS X1 in 2004,STENT X'S 3) CVA: No COPD: No CHF: No Dementia: No Diabetes: Yes (IDDM) GI Disorders: No Disorders: No HTN: Yes Hypercholesterolemia: Yes Liver Disease: No Seizures: No Thyroid Disease: No - Surgical History Abdominal Surgery: No Appendectomy: No Cardiac Surgery: Yes (THREE STENTS 2006) Cholecystectomy: No Lung Surgery: No Neurologic Surgery: No Orthopedic Surgery: Yes (BILATERAL CTR) - Immunization History Td Vaccination: No TDAP Vaccination: No Immunization Up to Date: No - Suicide/Smoking/Psychosocial Hx Smoking Status: Yes Smoking History: Unknown if ever smoked Years of Tobacco Use: 15 Have you smoked in the past 12 months: No Number of Cigarettes Smoked Daily: 4 Cigars Per Day: 10 'Breaking Loose' booklet given: 01/24/16 Hx Alcohol Use: No Drug/Substance Use Hx: No Substance Use Type: None Hx Substance Use Treatment: No <Roxie Hughes - Last Filed: 03/07/17 01:32> - Past Medical History Allergies/Adverse Reactions: Allergies Allergy/AdvReac Type Severity Reaction Status Date / Time No Known Drug Allergies Allergy Verified 02/16/17 19:59 Home Medications: Ambulatory Orders Aspirin [ASA -] 81 mg PO DAILY 01/23/16 Clopidogrel Bisulfate [Clopidogrel] 75 mg PO DAILY 01/23/16 Primidone [Mysoline] 750 mg PO DAILY 07/17/16 Acetaminophen [Tylenol .Regular Strength -] 650 mg PO Q6H PRN tablet 01/27/17 Hydromorphone [Dilaudid -] 2 mg PO Q6H PRN #28 tablet MDD 4 01/27/17 Insulin (Novolog 70/30) [Novolog Mix 70/30 Vial -] 8 units SQ ACDIN vial Lisinopril [Prinivil] 2.5 mg PO DAILY tablet 01/27/17 Insulin (Novolog 70/30) [Novolog Mix 70/30 Vial -] 28 units SQ ACBK 02/16/17 Review of Systems - Review of Systems Able to Perform ROS?: Yes Comments:: 03/06/17 20:53 CONSTITUTIONAL: Absent: fever, no chills, no fatigue EYES: Absent: visual changes ENT: Absent: ear pain, no sore throat CARDIOVASCULAR: Absent: chest pain, no palpitations RESPIRATORY: Absent: cough, no SOB GI: Absent: abdominal pain, no nausea, no vomiting, no constipation, no diarrhea GENITOURINARY: Absent: dysuria, no frequency, no hematuria MUSKULOSKELETAL: Present: left shoulder pain Absent: back pain, no arthralgia SKIN: Absent: rash NEURO: Absent: headache <Becca Raya - Last Filed: 03/06/17 20:51> *Physical Exam - Vital Signs Last Vital Signs Temp Pulse Resp BP Pulse Ox 98.5 F 83 18 122/87 100 03/06/17 17:54 03/06/17 17:54 03/06/17 17:54 03/06/17 17:54 03/06/17 17:54 - Physical Exam Comments: 03/06/17 20:55 GENERAL: Well developed, well nourished. Awake and alert. No acute distress. Afebrile HEENT: (+)Tongue appears to be dry. Normocephalic, atraumatic. PERRLA, EOMI. No conjunctival pallor. Sclera are non-icteric. Moist mucous membranes. Oropharynx is clear. NECK: Supple. Full ROM. No JVD. Carotid pulses 2+ and symmetric, without bruits. No thyromegaly. No lymphadenopathy. CARDIOVASCULAR: Regular rate and rhythm. No murmurs, rubs, or gallops. Distal pulses are 2+ and symmetric. PULMONARY: No evidence of respiratory distress. Lungs clear to auscultation bilaterally. No wheezing, rales or rhonchi. ABDOMINAL: Soft. Non-tender. Non-distended. No rebound or guarding. No organomegaly. Normoactive bowel sounds. MUSCULOSKELETAL Normal range of motion at all joints. No bony deformities or tenderness. No CVA tenderness. EXTREMITIES: (+)Lt shoulder ecchymosis and swelling, tenderness at the proximal humerus, unable to reach across to other shoulder, Resting tremors of her upper body, wasting of her legs bilaterally. Pt was able to able to supinate and pronate her left arm. No cyanosis. No clubbing. No edema. No calf tenderness. SKIN: (+)Strength 4/5 in the lower extremities, strength 3+ in the upper extremities. Reflexes good throughout. Warm and dry. Normal capillary refill. No rashes. No jaundice. NEUROLOGICAL: Alert, awake, appropriate. PSYCHIATRIC: Cooperative. Good eye contact. Appropriate mood and affect. <Becca Raya - Last Filed: 03/06/17 20:51> - Vital Signs Last Vital Signs Temp Pulse Resp BP Pulse Ox 98.5 F 83 18 122/87 100 03/06/17 17:54 03/06/17 17:54 03/06/17 17:54 03/06/17 17:54 03/06/17 17:54 <Roxie Hughes - Last Filed: 03/07/17 01:32> ED Treatment Course - Medications Given in the ED: ED Medications Discontinued Medications Generic Name Dose Route Start Last Admin Trade Name Freq PRN Reason Stop Dose Admin Oxycodone/Acetaminophen 2 combo 03/06/17 19:32 03/06/17 19:45 Percocet 5/325 - PO 03/06/17 19:33 2 combo ONCE ONE Administration <Becca Raya - Last Filed: 03/06/17 20:51> - LABORATORY CBC & Chemistry Diagram: 03/06/17 22:34 03/06/17 22:34 <Roxie Hughes - Last Filed: 03/07/17 01:32> Medical Decision Making - Medical Decision Making 03/06/17 20:47 Dr. Flex Starr was paged and notified via phone service. <Becca Raya - Last Filed: 03/06/17 20:51> - Medical Decision Making 03/06/17 22:37 Pt has an impacterd fracture of the left proximal humerus. Pt has a normal EKG Labs are pending. Pt agrees that she cannot walk at home with her walker as she has one broken arms now, and she will be admitted to the hospital and will ultimately require NH placement <Roxie Hughes - Last Filed: 03/07/17 01:32> *DC/Admit/Observation/Transfer - Attestations Scribe Attestion: 03/06/17 21:01 Documentation prepared by Becca Raya, acting as senior medical billing specialist for Roxie Hughes MD. <Becca Raya - Last Filed: 03/06/17 20:51> - Discharge Dispostion Admit: Yes <Roxie Hughes - Last Filed: 03/07/17 01:32> Diagnosis at time of Disposition: Unable to ambulate, Proximal humerus fracture - Discharge Dispostion Disposition: LEFT BEFORE [facility] Condition at time of disposition: Guarded
[2017-03-06 23:45] LABS: BASO # 0.1 # (0.1-1); BASO % 0.5 % (0-2.0); EOS # 0.1 # (0-4.5); EOS % 1.2 % (0-4.5); MCHC 32.9 g/dl (32.0-36.0); MEAN CELL VOLUME 100.1 fl (80-96); MEAN PLT VOLUME 8.1 fl (7.5-11.1); MONO # 0.8 # (3.8-10.2); NEUT # 8.4 # (42.8-82.8); NEUT % 73.1 % (42.8-82.8); PLATELET COUNT 375 K/MM3 (134-434); RDW 13.5 % (11.6-15.6); WHITE BLOOD COUNT 11.4 K/mm3 (4.0-10.0)
[2017-03-07 00:15] LABS: ALK PHOS 151 U/L (45-117); ANION GAP 13 (8-16); BILIRUBIN,TOTAL 0.4 mg/dL (0.2-1.0); CALCIUM 8.8 mg/dL (8.5-10.1); CO2 23 mmol/L (21-32); CREATININE 0.7 mg/dL (0.55-1.02); GLUCOSE,RANDOM 192 mg/dL (74-106); SGPT/ALT 22 U/L (12-78)
[2017-03-07 00:29] LABS: SGOT/AST 28 U/L (15-37)
[2017-03-07] MEDS: oxyCODONE HCL 5 MG TABLET PO PRN ×3 (03:07→18:40)
[2017-03-07] MEDS: ACETAMINOPHEN 325 MG TABLET (FP) PO PRN ×3 (03:07→18:39)
[2017-03-07 03:55] VITALS: BMI 19.8
[2017-03-07] MEDS ORDERED: INSULIN (NOVOLOG) ASPART 100 UNITS/ML 10ML VIAL ONE ×2 (06:20→16:37)
[2017-03-07] MEDS: INSULIN (NOVOLOG MIX 70/30) 100 UNITS/ML MDV SQ SCH ×2 (06:29→16:42)
[2017-03-07] MEDS: INSULIN SLIDING SCALE (NOVOLOG) 1 VIAL SQ SCH ×4 (06:30→21:31)
--- NOTE | 2017-03-07 07:27 | HP ---
Admitting History and Physical - Primary Care Physician PCP: Katarzyna Starr S - Admission Chief Complaint: L shoulder pain History of Present Illness: The patient is a 56-year-old female living at home with daughter, with a significant past medical history of coronary artery disease, [place] with stents, COPD, insulin-dependent diabetes, who presents to the ED s/p fall today. Pt states that was trying to get up using her walker to balance herself but the brakes were not on. She slid onto the floor and landed on her left shoulder. She denies any loss of consciousness or head trauma. Pt was able to call the ambulance. She is complaining of left shoulder pain. She denies having any other injuries or symptoms. pt is seen outpt by neurology for tremors and endocrine for diabetes, was supposed to see ortho for L hip surgery f/u but did not, will call in consult here History Source: Patient, Medical Record Limitations to Obtaining History: Clinical Condition - Past Medical History PAYABLE PROCESSOR: Yes: Seizure, Other (Essential tremor) Cardiovascular: Yes: CAD (with stents), [place] Pulmonary: Yes: COPD, Other (Smoker) Endocrine: Yes: Diabetes Mellitus (since age 3), Other (DKA. Hypoglicemia) - Past Surgical History Past Surgical History: Yes: CABG (3 stents) - Smoking History Smoking history: Unknown if ever smoked Have you smoked in the past 12 months: No Aproximately how many cigarettes per day: 4 - Alcohol/Substance Use Hx Alcohol Use: No History of Substance Use: reports: Marijuana - Social History Usual Living Arrangement: Yes: With Child ADL: Independent History of Recent Travel: No Home Medications - Allergies Allergies/Adverse Reactions: Allergies Allergy/AdvReac Type Severity Reaction Status Date / Time No Known Drug Allergies Allergy Verified 02/16/17 19:59 - Home Medications Home Medications: Ambulatory Orders Aspirin [ASA -] 81 mg PO DAILY 01/23/16 Clopidogrel Bisulfate [Clopidogrel] 75 mg PO DAILY 01/23/16 Primidone [Mysoline] 750 mg PO DAILY 07/17/16 Acetaminophen [Tylenol .Regular Strength -] 650 mg PO Q6H PRN tablet 01/27/17 Hydromorphone [Dilaudid -] 2 mg PO Q6H PRN #28 tablet MDD 4 01/27/17 Insulin (Novolog 70/30) [Novolog Mix 70/30 Vial -] 8 units SQ ACDIN vial 11/14/ 17 Lisinopril [Prinivil] 2.5 mg PO DAILY tablet 01/27/17 Insulin (Novolog 70/30) [Novolog Mix 70/30 Vial -] 28 units SQ ACBK 02/16/17 Family Disease History - Family Disease History Family Disease History: Heart Disease: Mother, Respiratory: Sister (asthma), Other: Father (volvulus) Review of Systems - Review of Systems Constitutional: denies: Chills, Fever Eyes: denies: Blind Spots, Recent Change in Vision HENT: denies: Difficult Swallowing, Epistaxis Neck: denies: Stiffness, Tenderness Cardiovascular: denies: Chest Pain, Shortness of Breath Respiratory: denies: Cough, SOB Gastrointestinal: denies: Abdominal Pain, Constipation, Rectal Bleeding, Vomiting Genitourinary: denies: Dysuria, Flank Pain Musculoskeletal: reports: Extremity Pain (L shoulder). denies: Back Pain Neurological: reports: Tremors (chronic), Unsteady Gait. denies: Change in LOC , Change in Speech, Confusion Hematology/Lymphatic: denies: Easily Bruised, Excessive Bleeding Psychiatric: denies: Anxiety, Depression, Suicidal Physical Examination Vital Signs: Vital Signs Temperature 98.1 F 03/07/17 06:00 Pulse Rate 94 H 03/07/17 06:00 Respiratory Rate 18 03/07/17 06:00 Blood Pressure 116/66 03/07/17 06:00 O2 Sat by Pulse Oximetry (%) 99 03/07/17 03:26 Constitutional: Yes: No Distress, Calm Eyes: Yes: Conjunctiva Clear HENT: Yes: Atraumatic Neck: Yes: Supple Cardiovascular: Yes: Regular Rate and Rhythm Respiratory: Yes: CTA Bilaterally Gastrointestinal: Yes: Soft. No: Distention Renal/: No: CVA Tenderness - Left, CVA Tenderness - Right Musculoskeletal: Yes: Other (LUE in sling) Edema: No Integumentary: No: Rash, Venous Stasis Changes Neurological: Yes: WNL, Alert, Oriented ...Motor Strength: WNL Psychiatric: Yes: WNL, Alert, Oriented. No: Agitated, Suicidal Ideation Labs: CBC, BMP 03/06/17 22:34 03/06/17 22:34 Imaging - Results X-ray: Report Reviewed Other: Report Reviewed Assessment/Plan The patient is a 56-year-old female living at home with daughter, with a significant past medical history of coronary artery disease, [place] with stents, COPD, insulin-dependent diabetes, who presents to the ED s/p fall today (no LOC no dizziness) and landed on her left shoulder. Found to have acute L shoulder fracture on xrays. Pt is s/p recent L hip fracture also after a mechanical fall and had surgery, then went to [facility] but left AMA. Has h/o poorly controlled diabetes sec to noncompliance ortho eval admitted for further treatment and management pain meds DVT falls PFX d/w pt will need endocrine and neurology f/u outpt, also d/w pt about health maintenance pap B[employer] TR[employer] W[employer]ER mammogram GI colonoscopy to be done after this acute episode resolves; she understands and is aware of possible consequences of noncompliance
[2017-03-07 07:41] LABS: MCH 33.6 pg (25.7-33.7); MCHC 33.6 g/dl (32.0-36.0); MEAN CELL VOLUME 100.2 fl (80-96); PLATELET COUNT 361 K/MM3 (134-434); RDW 13.7 % (11.6-15.6); WHITE BLOOD COUNT 9.3 K/mm3 (4.0-10.0)
[2017-03-07 08:09] LABS: ANION GAP 17 (8-16); CALCIUM 8.2 mg/dL (8.5-10.1); CO2 18 mmol/L (21-32); CREATININE 0.5 mg/dL (0.55-1.02); GLUCOSE,RANDOM 225 mg/dL (74-106)
[2017-03-07] MEDS: ASPIRIN 81 MG CHEWABLE TABLETS PO SCH (09:13)
[2017-03-07] MEDS: LISINOPRIL 5 MG TABLET (FP) PO SCH (09:16)
[2017-03-07] MEDS ORDERED: CLOPIDOGREL BISULFATE 75 MG TABLET (FP) PO SCH (10:00)
--- NOTE | 2017-03-07 16:29 | EKG ---
Test Reason : Blood Pressure : / mmHG Vent. Rate : 091 BPM Atrial Rate : 091 BPM P-R Int : 146 ms QRS Dur : 072 ms QT Int : 336 ms P-R-T Axes : 074 072 065 degrees QTc Int : 413 ms NORMAL SINUS RHYTHM NORMAL ECG WHEN COMPARED WITH ECG OF 16-FEB-2017 18:06, QT HAS SHORTENED Confirmed by DEMETRIS CALLAHAN MD ([id number]) on 03/07/2017 4:29:21 PM Referred By: Confirmed By:DEMETRIS CALLAHAN MD
[2017-03-08] MEDS: oxyCODONE HCL 5 MG TABLET PO PRN ×2 (03:39→23:07)
[2017-03-08] MEDS: ACETAMINOPHEN 325 MG TABLET (FP) PO PRN ×3 (03:40→23:07)
[2017-03-08] MEDS: INSULIN (NOVOLOG MIX 70/30) 100 UNITS/ML MDV SQ SCH ×2 (06:35→16:48)
[2017-03-08] MEDS: INSULIN SLIDING SCALE (NOVOLOG) 1 VIAL SQ SCH ×4 (06:36→22:24)
--- NOTE | 2017-03-08 07:00 | PN ---
Progress Note, Physician Chief Complaint: in bed NAD no new c/o L shoulder pain on/off seen by orhto, will need SNF placement - Current Medication List Current Medications: Active Medications Acetaminophen (Tylenol -) 650 mg PO Q6H PRN PRN Reason: PAIN LEVEL 1-5 Last Admin: 03/08/17 03:40 Dose: 650 mg Acetaminophen (Tylenol -) 650 mg PO Q6H PRN PRN Reason: PAIN Last Admin: 03/07/17 03:07 Dose: 650 mg Aspirin (Asa -) 81 mg PO DAILY [facility] Last Admin: 03/07/17 09:13 Dose: 81 mg Insulin Aspart (Novolog Mix 70/30 Vial) 8 units SQ ACDIN [facility] Last Admin: 03/07/17 16:42 Dose: 8 units Insulin Aspart (Novolog Mix 70/30 Vial) 28 units SQ ACBK [facility] Last Admin: 03/08/17 06:35 Dose: 28 units Insulin Aspart (Novolog Vial Sliding Scale -) 1 vial SQ ACHS [facility] PRN Reason: Protocol Last Admin: 03/08/17 06:36 Dose: 2 units Lisinopril (Prinivil) 2.5 mg PO DAILY [facility] Last Admin: 03/07/17 09:16 Dose: 2.5 mg Oxycodone HCl (Roxicodone -) 10 mg PO Q6H PRN PRN Reason: PAIN 6-10 Last Admin: 03/08/17 03:39 Dose: 10 mg - Objective Vital Signs: Vital Signs Temperature 99.7 F H 03/08/17 06:00 Pulse Rate 104 H 03/08/17 06:00 Respiratory Rate 20 03/08/17 06:00 Blood Pressure 120/68 03/08/17 06:00 O2 Sat by Pulse Oximetry (%) 98 03/07/17 21:00 Constitutional: Yes: No Distress, Calm Eyes: Yes: Conjunctiva Clear HENT: Yes: Atraumatic Neck: Yes: Supple Cardiovascular: Yes: Regular Rate and Rhythm Respiratory: Yes: CTA Bilaterally Gastrointestinal: Yes: Soft. No: Distention, Tenderness Genitourinary: No: CVA Tenderness - Left, CVA Tenderness - Right Musculoskeletal: No: Joint Stiffness, Joint Swelling Extremities: Yes: Other (LUE sling). No: Cold, Cool, Cyanosis Edema: No Integumentary: Yes: Venous Stasis Changes. No: Rash, Skin Tear Neurological: Yes: WNL, Alert, Oriented, Tremors ...Motor Strength: WNL Psychiatric: Yes: WNL, Alert, Oriented. No: Agitated, Suicidal Ideation Labs: CBC, BMP 03/07/17 07:05 03/07/17 07:05 - ....Imaging Other: Report Reviewed Assessment/Plan The patient is a 56-year-old female living at home with daughter, with a significant past medical history of coronary artery disease, [place] with stents, COPD, insulin-dependent diabetes, who presents to the ED s/p fall today (no LOC no dizziness) and landed on her left shoulder. Found to have acute L shoulder fracture on xrays. Pt is s/p recent L hip fracture also after a mechanical fall and had surgery, then went to [facility] SNF but left AMA. Has h/o poorly controlled diabetes sec to noncompliance ortho eval admitted for further treatment and management pain meds DVT falls PFX d/w pt and staff
[2017-03-08 08:22] LABS: BASO # 0.1 # (0.1-1); BASO % 0.6 % (0-2.0); EOS # 0.3 # (0-4.5); EOS % 3.1 % (0-4.5); LYMPH # 2.3 (8-40); MCHC 32.8 g/dl (32.0-36.0); MEAN CELL VOLUME 100.8 fl (80-96); MEAN PLT VOLUME 8.2 fl (7.5-11.1); MONO # 0.6 # (3.8-10.2); NEUT # 5.5 # (42.8-82.8); NEUT % 63.2 % (42.8-82.8); PLATELET COUNT 331 K/MM3 (134-434); RDW 13.8 % (11.6-15.6); WHITE BLOOD COUNT 8.6 K/mm3 (4.0-10.0)
[2017-03-08 08:55] LABS: ALBUMIN 2.6 g/dl (3.4-5.0); ALK PHOS 117 U/L (45-117); ANION GAP 12 (8-16); BILIRUBIN,TOTAL 0.4 mg/dL (0.2-1.0); CALCIUM 8.6 mg/dL (8.5-10.1); CO2 24 mmol/L (21-32); CREATININE 0.5 mg/dL (0.55-1.02); GLUCOSE,RANDOM 167 mg/dL (74-106); SGOT/AST 11 U/L (15-37); SGPT/ALT 16 U/L (12-78)
[2017-03-08] MEDS: ASPIRIN 81 MG CHEWABLE TABLETS PO SCH (09:50)
[2017-03-08] MEDS: LISINOPRIL 5 MG TABLET (FP) PO SCH (09:50)
--- NOTE | 2017-03-08 15:59 | CONSULT ---
Consult - text type - Consultation Consultation Note: FULL CONSULT DICTATED IMP: LEFT PROXIMAL HUMERUS FX AND S/P CANNULATED SCREWS LEFT HIP PLAN: SLING TO GEOVANNA LUCAS PWB LLE, FELI PLANNING
[2017-03-08 17:15] LABS: URINE APPEARANCE CLEAR; URINE BILIRUBIN NEGATIVE (NEGATIVE); URINE BLOOD 1+ (NEGATIVE); URINE COLOR LTYELLOW; URINE GLUCOSE (UA) 3+ (NEGATIVE); URINE KETONE 1+ (NEGATIVE); URINE NITRITE NEGATIVE (NEGATIVE); URINE PROTEIN NEGATIVE (NEGATIVE); URINE UROBILINOGEN NEGATIVE mg/dL (0.2-1.0)
[2017-03-08 17:20] LABS: URINE LEUK ESTERASE 1+ (NEGATIVE)
[2017-03-08 17:24] LABS: URINE BACTERIA RARE /hpf (NONE SEEN); URINE MUCUS RARE; URINE RBC 7 /hpf (0-3); URINE WBC 9 /hpf (3-5)
[2017-03-08 17:37] LABS: URINE MARIJUANA THC POSITIVE ng/ml (CUTOFF=50)
[2017-03-08 20:11] LABS: URINE LEUK ESTERASE TRACE (NEGATIVE)
--- NOTE | 2017-03-08 23:34 | CONS ---
DATE OF CONSULTATION: 03/08/2017 ORTHOPEDIC CONSULTATION: Patient is a 56-year-old female, well-known to me. We did a cannulated screw to her left hip on January 21, 2017. Now, she is here status post a new fall and complaining of pain to her left shoulder. She was found in the emergency room to have a fracture and admitted to the hospital for evaluation. PHYSICAL EXAMINATION: She has a new splint on her left upper arm. She has increased pain with range of motion of her shoulder, otherwise neurovascularly intact. Calf is soft and nontender. Good motion of her hip. Incision is well-healed with eulogio, which I removed today. IMAGING: X-rays of her shoulder show a left impacted proximal humerus fracture. No x-rays are available of her hip. IMPRESSION: Left impacted proximal humerus fracture. PLAN: Sling to the left upper extremity. No x-rays to her left hip. Nonweightbearing to the left shoulder for now. Partial weightbearing to the left lower extremity until I get a new x-ray. ESTER HANKS M.D. [id number]
[2017-03-09] MEDS: INSULIN (NOVOLOG MIX 70/30) 100 UNITS/ML MDV SQ SCH ×2 (06:43→16:57)
[2017-03-09] MEDS: INSULIN SLIDING SCALE (NOVOLOG) 1 VIAL SQ SCH ×4 (06:43→22:36)
[2017-03-09] MEDS: oxyCODONE HCL 5 MG TABLET PO PRN ×3 (06:54→20:16)
[2017-03-09] MEDS: ACETAMINOPHEN 325 MG TABLET (FP) PO PRN ×3 (06:55→20:16)
[2017-03-09 08:17] LABS: BASO % 0.5 % (0-2.0); EOS # 0.4 # (0-4.5); EOS % 4.5 % (0-4.5); LYMPH # 2.5 (8-40); MCH 32.7 pg (25.7-33.7); MCHC 32.6 g/dl (32.0-36.0); MEAN CELL VOLUME 100.3 fl (80-96); MEAN PLT VOLUME 8.8 fl (7.5-11.1); MONO # 0.6 # (3.8-10.2); NEUT # 5.5 # (42.8-82.8); NEUT % 60.4 % (42.8-82.8); PLATELET COUNT 334 K/MM3 (134-434); RDW 13.2 % (11.6-15.6)
[2017-03-09 08:21] LABS: ANION GAP 7 (8-16); CALCIUM 8.3 mg/dL (8.5-10.1); CO2 27 mmol/L (21-32); GLUCOSE,RANDOM 182 mg/dL (74-106)
[2017-03-09 08:22] LABS: CREATININE 0.4 mg/dL (0.55-1.02)
--- NOTE | 2017-03-09 08:26 | PN ---
Progress Note, Physician Chief Complaint: in bed no new c/o wants to go home; her daughter is also disabled can not help her much; to be seen by case preparer and liner and PT rehab d/w pt about tox screen + marijuana strongly advised to stop using it - Current Medication List Current Medications: Active Medications Acetaminophen (Tylenol -) 650 mg PO Q6H PRN PRN Reason: PAIN LEVEL 1-5 Last Admin: 03/08/17 15:11 Dose: 650 mg Acetaminophen (Tylenol -) 650 mg PO Q6H PRN PRN Reason: PAIN Last Admin: 03/09/17 06:55 Dose: 650 mg Aspirin (Asa -) 81 mg PO DAILY [facility] Last Admin: 03/08/17 09:50 Dose: 81 mg Insulin Aspart (Novolog Mix 70/30 Vial) 8 units SQ ACDIN [facility] Last Admin: 03/08/17 16:48 Dose: 8 units Insulin Aspart (Novolog Mix 70/30 Vial) 28 units SQ ACBK [facility] Last Admin: 03/09/17 06:43 Dose: 28 units Insulin Aspart (Novolog Vial Sliding Scale -) 1 vial SQ ACHS [facility] PRN Reason: Protocol Last Admin: 03/09/17 06:43 Dose: 2 units Lisinopril (Prinivil) 2.5 mg PO DAILY [facility] Last Admin: 03/08/17 09:50 Dose: 2.5 mg Oxycodone HCl (Roxicodone -) 10 mg PO Q6H PRN PRN Reason: PAIN 6-10 Last Admin: 03/09/17 06:54 Dose: 10 mg - Objective Vital Signs: Vital Signs Temperature 98.2 F 03/09/17 06:00 Pulse Rate 84 03/09/17 06:00 Respiratory Rate 20 03/09/17 06:00 Blood Pressure 130/56 03/09/17 06:00 O2 Sat by Pulse Oximetry (%) 96 03/08/17 21:00 Constitutional: No: No Distress, Calm Eyes: No: Conjunctiva Clear HENT: No: Atraumatic Neck: No: Supple Cardiovascular: No: Regular Rate and Rhythm Respiratory: Yes: CTA Bilaterally Gastrointestinal: Yes: Soft. No: Distention, Tenderness Genitourinary: No: CVA Tenderness - Left, CVA Tenderness - Right Musculoskeletal: No: Joint Stiffness, Joint Swelling Extremities: No: Cold, Cool Edema: No Integumentary: No: Rash, Skin Tear, Venous Stasis Changes Neurological: Yes: WNL, Alert, Oriented, Tremors ...Motor Strength: WNL Psychiatric: Yes: WNL, Alert, Oriented. No: Agitated, Suicidal Ideation Labs: CBC, BMP 03/09/17 06:30 - ....Imaging Other: Report Reviewed Assessment/Plan The patient is a 56-year-old female living at home with daughter, with a significant past medical history of coronary artery disease, [place] with stents, COPD, insulin-dependent diabetes, who presents to the ED s/p fall today (no LOC no dizziness) and landed on her left shoulder. Found to have acute L shoulder fracture on xrays. Pt is s/p recent L hip fracture also after a mechanical fall and had surgery, then went to [facility] SNF but left AMA. Has h/o poorly controlled diabetes sec to noncompliance ortho eval admitted for further treatment and management; CM and PT eval pain meds DVT falls PFX d/w pt and staff
[2017-03-09] MEDS: LISINOPRIL 5 MG TABLET (FP) PO SCH (11:04)
[2017-03-09] MEDS: ASPIRIN 81 MG CHEWABLE TABLETS PO SCH (11:04)
[2017-03-10] MEDS: INSULIN SLIDING SCALE (NOVOLOG) 1 VIAL SQ SCH ×4 (06:42→21:48)
[2017-03-10] MEDS: INSULIN (NOVOLOG MIX 70/30) 100 UNITS/ML MDV SQ SCH ×2 (06:43→16:31)
[2017-03-10] MEDS ORDERED: PT OWN MED DRAWER 7, Y5N ONE (06:50)
[2017-03-10] MEDS: ACETAMINOPHEN 325 MG TABLET (FP) PO PRN ×3 (07:02→20:03)
[2017-03-10] MEDS: oxyCODONE HCL 5 MG TABLET PO PRN ×3 (07:02→20:06)
[2017-03-10] MEDS: LISINOPRIL 5 MG TABLET (FP) PO SCH (10:15)
[2017-03-10] MEDS: ASPIRIN 81 MG CHEWABLE TABLETS PO SCH (10:15)
--- NOTE | 2017-03-10 12:46 | PN ---
Progress Note, Physician Chief Complaint: has pain L shoulder, asked for more pain meds; dw pt possible risks and SE with opiates (falls tolerance dependence constipation, respiratory depression etc) to use as needed only should go to SNF rehab pt agrred and asked for Cabrini or Edlon - Current Medication List Current Medications: Active Medications Acetaminophen (Tylenol -) 650 mg PO Q6H PRN PRN Reason: PAIN LEVEL 1-5 Last Admin: 03/09/17 20:16 Dose: 650 mg Acetaminophen (Tylenol -) 650 mg PO Q6H PRN PRN Reason: PAIN Last Admin: 03/10/17 07:02 Dose: 650 mg Aspirin (Asa -) 81 mg PO DAILY [facility] Last Admin: 03/10/17 10:15 Dose: 81 mg Insulin Aspart (Novolog Mix 70/30 Vial) 8 units SQ ACDIN [facility] Last Admin: 03/09/17 16:57 Dose: 8 units Insulin Aspart (Novolog Mix 70/30 Vial) 28 units SQ ACBK [facility] Last Admin: 03/10/17 06:43 Dose: 28 units Insulin Aspart (Novolog Vial Sliding Scale -) 1 vial SQ ACHS [facility] PRN Reason: Protocol Last Admin: 03/10/17 11:17 Dose: 2 units Lisinopril (Prinivil) 2.5 mg PO DAILY [facility] Last Admin: 03/10/17 10:15 Dose: 2.5 mg Oxycodone HCl (Roxicodone -) 10 mg PO Q6H PRN PRN Reason: PAIN 6-10 Last Admin: 03/10/17 07:02 Dose: 10 mg - Objective Vital Signs: Vital Signs Temperature 99 F 03/10/17 06:00 Pulse Rate 87 03/10/17 06:00 Respiratory Rate 18 03/10/17 06:00 Blood Pressure 112/57 03/10/17 06:00 O2 Sat by Pulse Oximetry (%) 96 03/09/17 21:00 Constitutional: Yes: No Distress, Calm Eyes: Yes: Conjunctiva Clear HENT: Yes: Atraumatic Neck: Yes: Supple Cardiovascular: Yes: Regular Rate and Rhythm Respiratory: Yes: CTA Bilaterally Gastrointestinal: Yes: Soft. No: Distention, Tenderness Genitourinary: No: CVA Tenderness - Left, CVA Tenderness - Right Musculoskeletal: No: Joint Stiffness, Joint Swelling Extremities: No: Calf Tenderness, Cold, Cool Edema: No Integumentary: No: Rash, Venous Stasis Changes Neurological: Yes: WNL, Alert, Oriented, Tremors ...Motor Strength: WNL Psychiatric: Yes: WNL, Alert, Oriented. No: Agitated Labs: CBC, BMP 03/09/17 06:30 03/09/17 06:30 - ....Imaging Other: Report Reviewed Assessment/Plan The patient is a 56-year-old female living at home with daughter, with a significant past medical history of coronary artery disease, [place] with stents, COPD, insulin-dependent diabetes, who presents to the ED s/p fall today (no LOC no dizziness) and landed on her left shoulder. Found to have acute L shoulder fracture on xrays. Pt is s/p recent L hip fracture also after a mechanical fall and had surgery, then went to [facility] but left AMA. 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
[2017-03-10] MEDS: HEPARIN NA (PORCINE) 5,000 UNITS/ML 1ML VIAL SQ SCH ×2 (13:04→21:46)
[2017-03-10] MEDS ORDERED: INSULIN (NOVOLOG) ASPART 100 UNITS/ML 10ML VIAL ONE (21:51)
[2017-03-11] MEDS: INSULIN (NOVOLOG MIX 70/30) 100 UNITS/ML MDV SQ SCH (06:22)
[2017-03-11] MEDS: INSULIN SLIDING SCALE (NOVOLOG) 1 VIAL SQ SCH ×4 (06:23→17:39)
[2017-03-11 08:32] VITALS: PULSE 84
[2017-03-11] MEDS: oxyCODONE HCL 5 MG TABLET PO PRN ×2 (09:17→16:39)
[2017-03-11] MEDS: ASPIRIN 81 MG CHEWABLE TABLETS PO SCH (09:18)
[2017-03-11] MEDS: LISINOPRIL 5 MG TABLET (FP) PO SCH (09:18)
[2017-03-11] MEDS: HEPARIN NA (PORCINE) 5,000 UNITS/ML 1ML VIAL SQ SCH (09:18)
--- NOTE | 2017-03-11 10:58 | DS ---
Physical Examination Vital Signs: Vital Signs Temperature 98.4 F 03/11/17 08:31 Pulse Rate 84 03/11/17 08:31 Respiratory Rate 20 03/11/17 08:43 Blood Pressure 112/61 03/11/17 08:31 O2 Sat by Pulse Oximetry (%) 96 03/11/17 08:43 Findings/Remarks: in better spirits, less shoulder pain had BGM 40 on her usual doses of insulin - will cut down doses and close f/u BGM d/w pt DC planning to SNF rehab, she agreed; will need f/u after DC home as advised: ortho, endocrine and neurology f/u; eval for microscopic hematuria, also X RAY INSPECTOR pap mammogram GI colonoscopy for screening and health maintenance; d/w pt about being compliant with meds diet and visits as advised and as precribed, she understood. Falls PFX. Stop all non-prescribed drugs use. d/w CM and pt and staff t time 45 min Constitutional: Yes: No Distress, Calm Eyes: Yes: Conjunctiva Clear HENT: Yes: Atraumatic Neck: Yes: Supple Cardiovascular: Yes: Regular Rate and Rhythm Respiratory: Yes: CTA Bilaterally Gastrointestinal: Yes: Soft. No: Distention, Tenderness Renal/: No: CVA Tenderness - Left, CVA Tenderness - Right Musculoskeletal: No: Joint Stiffness, Joint Swelling Extremities: No: Cold, Cool, Cyanosis Edema: No Peripheral Pulses WNL: Yes Integumentary: No: Rash, Skin Tear, Venous Stasis Changes Neurological: Yes: WNL, Alert, Oriented, Tremors ...Motor Strength: WNL Psychiatric: Yes: WNL, Alert, Oriented. No: Agitated, Suicidal Ideation Labs: CBC, BMP 03/09/17 06:30 03/09/17 06:30 Discharge Summary Reason For Visit: FRACTURE OF HEAD OF HUMERUS,UNABLE TO WALK Current Active Problems Proximal humerus fracture (Acute) Unable to ambulate (Acute) Procedures: Principal: s/p mechanical fall; L shoulder fracture Other Procedures: seen by ortho; pain meds prn; needs CM PT rehab Hospital Course: improved with above; to go to SNF; f/u as advised d/w pt Condition: Guarded - Instructions Diet, Activity, Other Instructions: f/u PCP and orhto in 1-2 weeks of DC from SNF [place] f/u endocrine dr and neurology dr within 2-3 weeks of DC from [place] also to see for microscopic hematuria w/u, renal pelvic US and cytology urine , possible cystoscopy r.o malignancy; to go for pap X RAY INSPECTOR BDT mammogram GI colonoscopy as outpt within few weeks of DC from [place] stop all drug use falls PFX d/w pt all the above Referrals: Flex Starr MD [Primary Care Provider] - Disposition: [facility] - Home Medications Comprehensive Discharge Medication List: Ambulatory Orders Aspirin [ASA -] 81 mg PO DAILY 01/23/16 Clopidogrel Bisulfate [Clopidogrel] 75 mg PO DAILY 01/23/16 Primidone [Mysoline] 750 mg PO DAILY 07/17/16 Acetaminophen [Tylenol .Regular Strength -] 650 mg PO Q6H PRN tablet 01/27/17 Hydromorphone [Dilaudid -] 2 mg PO Q6H PRN #28 tablet MDD 4 01/27/17 Insulin (Novolog 70/30) [Novolog Mix 70/30 Vial -] 8 units SQ ACDIN vial Lisinopril [Prinivil] 2.5 mg PO DAILY tablet 01/27/17 Insulin (Novolog 70/30) [Novolog Mix 70/30 Vial -] 28 units SQ ACBK 02/16/17
[2017-03-11] MEDS ORDERED: CLOPIDOGREL BISULFATE 75 MG TABLET (FP) PO SCH (13:15)
[2017-03-11 14:12] VITALS: BP 129/94; TEMP 97.9
[2017-03-11] MEDS ORDERED: INSULIN (NOVOLOG MIX 70/30) 100 UNITS/ML MDV SQ SCH (16:30)
[2017-03-11] MEDS ORDERED: INSULIN (NOVOLOG) ASPART 100 UNITS/ML 10ML VIAL ONE (17:36)
[2017-03-12] MEDS ORDERED: INSULIN (NOVOLOG MIX 70/30) 100 UNITS/ML MDV SQ SCH (07:00)
== END 2017-03-11 18:52 | DRG 563 ==
LOC: JER 17:37 → JERBED 03-07 00:14 → J6S 03-07 02:51
PROVIDERS: ADMIT Specialist; ATTEND Specialist
PROC: 2W3BX1Z Immobilization of Left Upper Arm using Splint (ICD-10-PCS; principal; 2017-03-08)
DX: S42.292A Other displaced fracture of upper end of left humerus, initial encounter for closed fracture (principal); G40.89 Other seizures; I25.10 Atherosclerotic heart disease of native coronary artery without angina pectoris; I25.2 Old myocardial infarction; J44.9 Chronic obstructive pulmonary disease, unspecified; E11.9 Type 2 diabetes mellitus without complications; F17.200 Nicotine dependence, unspecified, uncomplicated; Z79.4 Long term (current) use of insulin; Z95.1 Presence of aortocoronary bypass graft; Z95.5 Presence of coronary angioplasty implant and graft; Z91.14 Patient's other noncompliance with medication regimen; W01.0XXA Fall on same level from slipping, tripping and stumbling without subsequent striking against object, initial encounter; Y93.89 Activity, other specified; Y92.098 Other place in other non-institutional residence as the place of occurrence of the external cause
CPT/HCPCS: 36415; 73030-TC-LT; 73060-TC-LT; 73502-TC-LT; 80048; 80053; 80307; 81003; 81015; 85025; 85027; 87086; 93005; 93010; 97116-GP; 99285-25; J1644

== ENCOUNTER 2017-03-12 15:47 | Emergency (ER) | payer OTHER ==
[2017-03-12 16:14] VITALS: BMI 26.6
[2017-03-12] MEDS ORDERED: SODIUM CHLORIDE 500 ML IV ONE (16:47)
--- NOTE | 2017-03-12 17:29 | PDOC ---
History of Present Illness - General History Source: Patient Exam Limitations: No Limitations - History of Present Illness Initial Comments: 03/12/17 17:45 Patient is a 56 year old female with a significant past medical history who presents to the ED with complaints of coronary artery disease, DE with stents, COPD, insulin-dependent diabetes who presents to the ED with complaints of urinary retention that began this morning while at home. Patient reports being unable to urinate since this morning. She reports being unable to urinate by herself and experiences intense urinary urgency. She reports being in the hospital yesterday afternoon and was given a catheter which extracted less than 1 liter of urine. She reports experiencing intense superpubic pain secondary to urinary retention. Patient states her last urinary episode was this morning at 8am and has not urinated since. Patient states her blood sugar level this morning was 300 and 556 this afternoon. She reports experiencing left shoulder pain and states it is currently in a sling. Denies fever, chills. Denies nausea, vomiting. Denies chest pain, SOB. Denies diarrhea, constipation. Denies contact with sick individuals, out of state travel. Denies any other symptoms. Allergies: None Social history: Lives with child. No smoking. No alcohol. Current Marijuana use. Surgical history: None PMD: Dr. Katarzyna Starr <Molina Fair - Last Filed: 03/12/17 17:45> <Jacob Ram - Last Filed: 03/12/17 21:54> - General Chief Complaint: Urinary Problem Stated Complaint: URINARY RETENTION Time Seen by Provider: 03/12/17 16:32 Past History <Molina Fair - Last Filed: 03/12/17 17:45> - Past Medical History Anemia: No Asthma: No Cancer: Yes (VAGINAL/CERVICAL CANCER- S/P LASAR SURGERY) Cardiac Disorders: Yes (ASHD, TRIPLE BYPASS, S/P [place] X1 in 2004,STENT X'S 3) CVA: No COPD: No CHF: No Dementia: No Diabetes: Yes (IDDM) GI Disorders: No Disorders: No HTN: Yes Hypercholesterolemia: Yes Liver Disease: No Seizures: No Thyroid Disease: No - Surgical History Abdominal Surgery: No Appendectomy: No Cardiac Surgery: Yes (THREE STENTS 2006) Cholecystectomy: No Lung Surgery: No Neurologic Surgery: No Orthopedic Surgery: Yes (BILATERAL CTR) - Immunization History Td Vaccination: No TDAP Vaccination: No Immunization Up to Date: No - Suicide/Smoking/Psychosocial Hx Smoking Status: Yes Smoking History: Former smoker Years of Tobacco Use: 15 Have you smoked in the past 12 months: No Number of Cigarettes Smoked Daily: 4 If you are a former smoker, when did you quit?: 2014 Cigars Per Day: 10 Information on smoking cessation initiated: No 'Breaking Loose' booklet given: 01/24/16 Hx Alcohol Use: No Drug/Substance Use Hx: No Substance Use Type: None Hx Substance Use Treatment: No <Jacob Ram - Last Filed: 03/12/17 21:54> - Past Medical History Allergies/Adverse Reactions: Allergies Allergy/AdvReac Type Severity Reaction Status Date / Time No Known Drug Allergies Allergy Verified 02/16/17 19:59 Home Medications: Ambulatory Orders Aspirin 81 mg PO DAILY 03/12/17 Clopidogrel Bisulfate [Plavix] 75 mg PO DAILY 03/12/17 Collagenase Clostridium Hist. [Santyl] 1 applic TP DAILY 03/12/17 Heparin - 5,000 units SQ BID 03/12/17 Insulin (Novolog 70/30) [Novolog Mix 70/30 Flexpen -] 5 units SQ DAILY 03/12/17 Lisinopril [Zestril] 2.5 mg PO DAILY 03/12/17 Oxycodone HCl [Oxycontin] 10 mg PO Q6H PRN 03/12/17 Primidone [Mysoline] 3 tab PO DAILY 03/12/17 Review of Systems - Review of Systems Constitutional: No: Chills, Fever Respiratory: No: Cough, Shortness of Breath Cardiac (ROS): No: Chest Pain ABD/GI: No: Diarrhea, Vomiting : Yes: See HPI Musculoskeletal: Yes: Joint Pain (recent L humeral fx) Neurological: No: Headache All Other Systems: Reviewed and Negative <Jacob Ram - Last Filed: 03/12/17 21:54> *Physical Exam - Vital Signs Last Vital Signs Temp Pulse Resp BP Pulse Ox 98.4 F 99 H 20 154/105 100 03/12/17 16:09 03/12/17 16:09 03/12/17 16:09 03/12/17 16:09 03/12/17 16:09 - Physical Exam Comments: 03/12/17 17:46 MY NORMAL EXAM GENERAL: Resting tremor at baseline. The patient is awake, alert, and fully oriented, in no acute distress. HEAD: Normal with no signs of trauma. EYES: Pupils equal, round and reactive to light, extraocular movements intact, sclera anicteric, conjunctiva clear with no pallor. ENT: Ears normal, nares patent, oropharynx clear without exudates. Moist mucous membranes. NECK: Normal range of motion, supple without lymphadenopathy, JVD, or masses. LUNGS: Breath sounds equal, clear to auscultation bilaterally. No wheeze/ crackles. HEART: Regular rate and rhythm, normal S1 and S2 without murmur or rub. ABDOMEN: +Distended bladder. +palpable enlarged bladder just below umbilicus. No CVA tenderness. Soft/nontender/nondistended. BS wnl. No guarding or rebound. No palpable masses. No hepatosplenomegaly. EXTREMITIES: +Left arm sling, s/p femoral fracture. +Neuro intact. +Scattered healing to lower extremities, without new laceration or bruising. No edema. Normal range of motion, no edema. No clubbing or cyanosis. No cords, erythema, or tenderness. NEUROLOGICAL: Cranial nerves II through XII grossly intact. Normal speech, normal gait. PSYCH: Normal mood, normal affect. SKIN: Warm, Dry, normal turgor, no rashes or lesions noted. <Molina Fair - Last Filed: 03/12/17 17:45> - Vital Signs Last Vital Signs Temp Pulse Resp BP Pulse Ox 98.4 F 99 H 20 154/105 100 03/12/17 16:09 03/12/17 16:09 03/12/17 16:09 03/12/17 16:09 03/12/17 16:09 <Jacob Ram - Last Filed: 03/12/17 21:54> Heart Score/ECG Review #1 ECG reviewed & interpreted by me at: 18:34 General ECG Interpretation: Sinus Rhythm, Normal Rate (98), Normal Intervals ( qtc 408), No acute ischemic changes <Jacob Ram - Last Filed: 03/12/17 21:54> ED Treatment Course - LABORATORY CBC & Chemistry Diagram: 03/12/17 17:10 03/12/17 17:10 - ADDITIONAL ORDERS Additional order review: Laboratory Results 03/12/17 16:01 POC Glucometer [id number] 03/12/17 16:01 POC Glucometer [id number] <Ramos Fairew - Last Filed: 03/12/17 17:45> - LABORATORY CBC & Chemistry Diagram: 03/12/17 17:10 03/12/17 19:15 - ADDITIONAL ORDERS Additional order review: Laboratory Results 03/12/17 16:01 POC Glucometer [id number] 03/12/17 16:01 POC Glucometer [id number] <Jacob Ram - Last Filed: 03/12/17 21:54> Medical Decision Making - Medical Decision Making 03/12/17 17:08 56y/o F recent admission for humeral fracture, IDDM with decreased insulin doses 2/2 hypoglycemia on date of discharge, discharged to SNF yesterday now p/ w urine retention and elevated glucose levels today. no infectious source, discomfort to pelvis 2/2 pressure, but no flank pain. afebrile distended bladder palpable to umbilicus, no cvat or edema 56y/o F with urinary retention and elevated glucose. hyperglycemia ? 2/2 recently decreased insulin doses, r/o electrolyte abnormality or DKA. Urine retention ? 2/2 UTI, has h/o microscopic hematuria scheduled to see but no h/ o retention. labs Foster, UA/cx IVF reassess 03/12/17 20:30 normal wbc, normal Hgb. chem notable for some dehydration with low Na/Cl, slightly elevated K. no ekg changes. Cr normal. Received IV fluids in ED. Foster catheter with 1300cc total output consistent with retention. Will leave indwelling cathether awaiting f/u. Will discuss dispo with Dr. Starr, anticipate can return to [facility] for continued rehab. 03/12/17 21:[address] Starr, agrees with d/c plan back to [facility] with leg bag. Can have urology consult there. Glucose levels improved. 03/12/17 21:53 urine micro without evidence of infection. <Jacob Ram - Last Filed: 03/12/17 21:54> *DC/Admit/Observation/Transfer - Attestations Scribe Attestion: 03/12/17 17:46 Documentation prepared by Molina Fair, acting as medical translator for Jacob Ram MD, /DO. <Molina Fair - Last Filed: 03/12/17 17:45> <Jacob Ram - Last Filed: 03/12/17 21:54> Diagnosis at time of Disposition: IDDM (insulin dependent diabetes mellitus), Urinary retention - Discharge Dispostion Condition at time of disposition: Improved - Referrals Referrals: Katarzyna Starr [Staff Physician] - Neftaly Green MD [Staff Physician] - - Patient Instructions Printed Discharge Instructions: DI for Urinary Retention in Women Additional Instructions: Activity as tolerated. Stay hydrated. Blood tests today showed slightly elevated blood sugar levels but otherwise normal. A foster catheter was placed because your bladder was filled with urine. There is no evidence of a urine infection at this time. Foster Catheter maintenance as per [facility] team. YOU SHOULD SEE A UROLOGIST during your stay there. Continue your medications as previously prescribed by your physician. You should follow up with Dr. Starr as soon as possible regarding today's emergency department visit. Return to the emergency department for any new or concerning symptoms, particularly fever/chills, abdominal or flank pain, vomiting.
[2017-03-12 17:47] LABS: BASO % 0.8 % (0-2.0); EOS % 1.9 % (0-4.5); HEMATOCRIT 34.7 % (32.4-45.2); HEMOGLOBIN 11.6 GM/dL (10.7-15.3); LYMPH % 20.1 % (8-40); MCH 33.9 pg (25.7-33.7); MCHC 33.5 g/dl (32.0-36.0); MEAN CELL VOLUME 101.1 fl (80-96); MEAN PLT VOLUME 9.2 fl (7.5-11.1); MONO % 7.6 % (3.8-10.2); NEUT % 69.6 % (42.8-82.8); PLATELET COUNT 259 K/MM3 (134-434); RBC 3.44 M/mm3 (3.60-5.2); RDW 13.4 % (11.6-15.6); WHITE BLOOD COUNT 8.1 K/mm3 (4.0-10.0)
[2017-03-12 18:20] LABS: URINE APPEARANCE CLEAR; URINE BILIRUBIN NEGATIVE (NEGATIVE); URINE BLOOD 1+ (NEGATIVE); URINE COLOR LTYELLOW; URINE GLUCOSE (UA) 3+ (NEGATIVE); URINE KETONE 1+ (NEGATIVE); URINE LEUK ESTERASE NEGATIVE (NEGATIVE); URINE NITRITE NEGATIVE (NEGATIVE); URINE PROTEIN NEGATIVE (NEGATIVE); URINE UROBILINOGEN NEGATIVE mg/dL (0.2-1.0)
[2017-03-12 20:03] LABS: ALBUMIN 2.6 g/dl (3.4-5.0); ALK PHOS 132 U/L (45-117); ANION GAP 10 (8-16); BILIRUBIN,TOTAL 0.3 mg/dL (0.2-1.0); BLOOD UREA NITROGEN 14 mg/dL (7-18); CALCIUM 8.5 mg/dL (8.5-10.1); CHLORIDE 95 mmol/L (98-107); CO2 25 mmol/L (21-32); CREATININE 0.6 mg/dL (0.55-1.02); GLUCOSE,RANDOM 287 mg/dL (74-106); LIPASE 42 U/L (73-393); MAGNESIUM 2.2 mg/dL (1.8-2.4); POTASSIUM 5.5 mmol/L (3.5-5.1); SGOT/AST 17 U/L (15-37); SGPT/ALT 21 U/L (12-78); SODIUM 130 mmol/L (136-145); TOT PROT 6.6 g/dl (6.4-8.2)
[2017-03-12 21:35] LABS: EPI CELLS RARE /HPF (FEW)
[2017-03-12 22:42] VITALS: BP 152/95; PULSE 88; TEMP 98.6
--- NOTE | 2017-03-16 09:18 | PDOC ---
Patient Follow-up (Call Back) - Post ED Follow - Up Condition at time of discharge: Improved Disposition at time of original discharge: NURSING HOME FACILITY Reason for Call Back: Abnwl. Microbiology (Pseudomonas on ucx, sen to levaquin and IV abx Pt not on abx Called and l/m for pt to call back)
--- NOTE | 2017-03-18 07:31 | PDOC ---
Patient Follow-up (Call Back) - Post ED Follow - Up Condition at time of discharge: Improved Disposition at time of original discharge: PENITENTIARY FACILITY Reason for Call Back: Abnwl. Microbiology (Pt's urine cx shows pseudomonas. Spoke to the daughter and states patient was transferred to [facility] for rehabilitation. CAlled [id number] and spoke to Jonah LEWIS and faxed results to [id number])
== END 2017-03-12 22:42 ==
LOC: JER 15:47
PROC: 0T9B70Z Drainage of Bladder with Drainage Device, Via Natural or Artificial Opening (ICD-10-PCS; principal; 2017-03-12)
PROC: 3E0337Z Introduction of Electrolytic and Water Balance Substance into Peripheral Vein, Percutaneous Approach (ICD-10-PCS; 2017-03-12)
DX: R33.8 Other retention of urine (principal); E10.9 Type 1 diabetes mellitus without complications; Z79.4 Long term (current) use of insulin; I25.10 Atherosclerotic heart disease of native coronary artery without angina pectoris; I10 Essential (primary) hypertension; Z95.1 Presence of aortocoronary bypass graft; Z95.5 Presence of coronary angioplasty implant and graft; I25.2 Old myocardial infarction; Z85.41 Personal history of malignant neoplasm of cervix uteri
CPT/HCPCS: 36415; 80053; 81003; 81015; 83690; 83735; 85025; 87086; 87186; 99284-25

== ENCOUNTER 2017-03-31 14:25 | Emergency (ER) | payer OTHER ==
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
[2017-03-31 15:05] VITALS: TEMP 97; BMI 25.2
[2017-03-31] MEDS ORDERED: HYDROmorphone HCL CARPU-JECT 1 MG/1 ML DISP.SYRIN IM ONE ×2 (15:11→15:17)
[2017-03-31] MEDS ORDERED: HYDROmorphone HCL CARPU-JECT 1 MG/1 ML DISP.SYRIN ONE (15:16)
--- NOTE | 2017-03-31 15:46 | PDOC ---
Attending Attestation - Resident Resident Name: FragosoShekhar - ED Attending Attestation I have performed the following: I have examined & evaluated the patient, The case was reviewed & discussed with the resident, I agree w/resident's findings & plan, Exceptions are as noted - HPI HPI: 03/31/17 15:43 56-year-old female with baseline tremors and recent left humeral fracture presents from rehabilitation session with acute atraumatic pain to her left arm while ambulating with a walker. No fall or secondary injury, complaining of numbness and tingling to the arm but no motor deficit. - Physicial Exam PE: 03/31/17 15:44 afebrile, blood pressure normal. Alert, exam is atraumatic except for left arm: Resolving ecchymosis, tenderness to palpation, subjectively decreased sensation but intact motor function, 2+ distal pulses are palpable with brisk cap refill - Medical Decision Making 03/31/17 15:44 Patient seen and evaluated with the resident. I agree with the overall evaluation, assessment, and management with the following summary of visit: 56-year-old female with recent left humeral fracture presents with acute recurrence of pain to the left arm and associated sensory deficit, but no motor or vascular deficit. Likely reaggravated her injury while weightbearing, no other fall or injury. Chest x-ray, EKG Repeat left humeral x-ray Pain control Reassess Heart Score/ECG Review #1 ECG reviewed & interpreted by me at: 14:43 General ECG Interpretation: Sinus Rhythm (baseline artifact 2/2 resting tremor, slight tachy to 100), Normal Intervals, No acute ischemic changes (nonspecific t wave changes)
[2017-03-31 20:21] VITALS: BP 138/74; PULSE 88
--- NOTE | 2017-04-01 10:53 | EKG ---
Test Reason : Blood Pressure : / mmHG Vent. Rate : 100 BPM Atrial Rate : 100 BPM P-R Int : 132 ms QRS Dur : 058 ms QT Int : 406 ms P-R-T Axes : 060 031 033 degrees QTc Int : 523 ms tds tremmor artifacts LOW VOLTAGE QRS NONSPECIFIC ST AND T WAVE ABNORMALITY ABNORMAL ECG WHEN COMPARED WITH ECG OF 12-MAR-2017 18:34, NONSPECIFIC T WAVE ABNORMALITY, IMPROVED IN INFERIOR LEADS NONSPECIFIC T WAVE ABNORMALITY, WORSE IN LATERAL LEADS QT HAS LENGTHENED Confirmed by JOE HUTCHINS, DEENA ([id number]) on 04/01/2017 10:52:57 AM Referred By: Confirmed By:DEENA DIAZ MD
== END 2017-03-31 20:22 | disposition home or self-care (01) ==
LOC: JER 14:25
PROC: 3E023NZ Introduction of Analgesics, Hypnotics, Sedatives into Muscle, Percutaneous Approach (ICD-10-PCS; principal; 2017-03-31)
DX: M25.512 Pain in left shoulder (principal); Z87.891 Personal history of nicotine dependence; E78.00 Pure hypercholesterolemia, unspecified; I10 Essential (primary) hypertension; Z95.5 Presence of coronary angioplasty implant and graft; E11.9 Type 2 diabetes mellitus without complications; A15.9 Respiratory tuberculosis unspecified; Z91.81 History of falling
CPT/HCPCS: 71045-TC; 73030-TC-LT; 93005; 93010; 96372; 99283-25

== ENCOUNTER 2017-11-22 02:58 | Inpatient (IN) | payer OTHER ==
--- NOTE | 2017-11-22 03:41 | PDOC ---
Attending Attestation - Resident Resident Name: Christina Garcia - ED Attending Attestation I have performed the following: I have examined & evaluated the patient, The case was reviewed & discussed with the resident, I agree w/resident's findings & plan - HPI HPI: 11/22/17 05:12 Pt comes with high blood sugar. She has a resting tremor, neuropathy, and she lives with her daughter but with no HHAide and she is unable to care for herself. Pt is thin and unkempt. She is afebrile. She may or may not be compliant with her meds. Pt is slightly confused. She thinks it is 2006. - Physicial Exam PE: 11/28/17 05:20 Agree with resident exam. Pt has no complaints; she is just concerned that her blood sugars are high and uncontrollable at home. SHe is dehydrated, and appears uncared for. She has been taking care of herself at home, despite her physical limitations; she lives with daughter, but daughter works and is not available to cook and clean for her and care for her. - Medical Decision Making 11/28/17 05:21 Pt will be hydrated and she will be admitted. Labs and XR and EKG done. Admitted to her PMD Keven Starr.
[2017-11-22] MEDS ORDERED: SODIUM CHLORIDE 0.9% 500 ML INFUS.BAG IV ONE (04:04)
[2017-11-22] MEDS ORDERED: INSULIN REGULAR HUMAN 100 UNITS/ML *VIAL IVPUSH ONE (04:04)
--- NOTE | 2017-11-22 04:36 | PDOC ---
History of Present Illness - General Chief Complaint: Blood Sugar Problem Stated Complaint: HYPERGLYCEMIA Time Seen by Provider: 11/22/17 03:40 - History of Present Illness Initial Comments: Radha Mendoza is a 57yo woman with a PMH of CAD s/p TN s/p stent, asthma/COPD , tremor, hypothyroidism, and IDDM who presents today with hyperglycemia and general malaise. She called an ambulance tonight because her glucometer read "high." However, she reports that she has been feeling generally unwell for days, with lower abdominal vs suprapubic pain as well as b/l shoulder pain. She does not have any other specific complaints and denies urinary symptoms, fever/chills, nausea/ vomiting. She has been eating less than normal but has been drinking plenty of fluids. She has been taking her regular medications as prescribed. She has had episodes of DKA previously and was worried about the glucose reading, so she wanted to be evaluated in the ED. Past History - Past Medical History Allergies/Adverse Reactions: Allergies Allergy/AdvReac Type Severity Reaction Status Date / Time No Known Drug Allergies Allergy Verified 11/22/17 03:22 Home Medications: Ambulatory Orders Aspirin 81 mg PO DAILY 03/12/17 Clopidogrel Bisulfate [Plavix] 75 mg PO DAILY 03/12/17 Collagenase Clostridium Hist. [Santyl] 1 applic TP DAILY 03/12/17 Heparin - 5,000 units SQ BID 03/12/17 Insulin (Novolog 70/30) [Novolog Mix 70/30 Flexpen -] 5 units SQ DAILY 03/12/17 Lisinopril [Zestril] 2.5 mg PO DAILY 03/12/17 Oxycodone HCl [Oxycontin] 10 mg PO Q6H PRN 03/12/17 Primidone [Mysoline] 3 tab PO DAILY 03/12/17 Anemia: No Asthma: No Cancer: Yes (VAGINAL/CERVICAL CANCER- S/P LASAR SURGERY) Cardiac Disorders: Yes (ASHD, TRIPLE BYPASS, S/P [place] X1 in 2004,STENT X'S 3) CVA: No COPD: No CHF: No Dementia: No Diabetes: Yes (IDDM) GI Disorders: No Disorders: No HTN: Yes Hypercholesterolemia: Yes Liver Disease: No Seizures: No Thyroid Disease: No - Surgical History Abdominal Surgery: No Appendectomy: No Cardiac Surgery: Yes (THREE STENTS 2006) Cholecystectomy: No Lung Surgery: No Neurologic Surgery: No Orthopedic Surgery: Yes (BILATERAL CTR) - Immunization History Td Vaccination: No TDAP Vaccination: No Immunization Up to Date: No - Suicide/Smoking/Psychosocial Hx Smoking Status: Yes Smoking History: Never smoked Years of Tobacco Use: 15 Have you smoked in the past 12 months: No Number of Cigarettes Smoked Daily: 4 If you are a former smoker, when did you quit?: 2014 Cigars Per Day: 10 'Breaking Loose' booklet given: 01/24/16 Hx Alcohol Use: No Drug/Substance Use Hx: No Substance Use Type: None Hx Substance Use Treatment: No Review of Systems - Review of Systems Comments:: General: No fevers, no chills, no weight loss. +Poor appetite, +malaise HEENT: No changes in vision, no changes in hearing, no congestion, no sore throat CV: No chest pain, no palpitations, +BLE edema Pulm: No SOB, no cough, no wheezing GI: No nausea, vomiting, no change in bowel habits, no melena : No frequency, no urgency, no dysuria Musc: +Shoulder pain. No joint swelling, no recent injury Skin: No rash, no lesions, no erythema Endo: No excessive thirst, no heat/cold intolerance Heme: No unusual bruising or bleeding, no swollen glands Neuro: No syncope, no numbness/tingling, no focal weakness. +Tremor Vasc: No claudication Psych: No recent change in mood, no SI or HI *Physical Exam - Vital Signs Last Vital Signs Temp Pulse Resp BP Pulse Ox 97.9 F 87 22 113/68 95 11/22/17 03:23 11/22/17 03:23 11/22/17 03:23 11/22/17 03:11/22/17 03:23 - Physical Exam Comments: General: Frail, uncomfortable, diffuse tremor HEENT: PERRL, EOMI, MMM, voice normal, normal neck ROM, no LAD Cards: RRR, no murmur appreciated Pulm: Comfortable on room air, clear to auscultation bilaterally Abd: Soft, non-distended, suprapubic TTP Ext: Moves all extremities. Dried blood from anterior tyler wound on LLE. BLE pitting edema, L>R. ROM intact. Strength equal bilaterally Vasc: Extremities WWP. Neuro: A&Ox3, CN grossly intact, minimal speech, motor/sensory grossly intact and symmetric, persistent b/l tremor especially in hands Psych: Mood appropriate to situation ED Treatment Course - LABORATORY CBC & Chemistry Diagram: 11/22/17 05:37 11/22/17 05:37 Medical Decision Making - Medical Decision Making 11/22/17 04:39 Radha Mendoza is a 57yo woman with a h/o INND, CAD s/p TN s/p stent, asthma/ COPD, tremor, hypothyroidism who presents with 3 days of general malaise, suprapubic discomfort, and a blood glucose reading of "high" this evening. - h/o DKA. Will treat hyperglycemia prior to additional workup - Finger stick glucose followed by 10u regular insulin - 1L Normal saline given by EMS. Additional 1L ordered - Concern for underlying infection causing hyperglycemia given report of general malaise recently. - CBC, CMP, UA, trop, EKG - Concern that Ms Mendoza is not able to care for herself at home, she reports that she has not been eating well and has been feeling sick for days, bleeding wound on her tyler that has not been cleaned. 11/22/17 05:48 - CBC not concerning. Glucose 304 following approximately 1.5L fluids given. Chemistry pending, still need to send urine sample. - Spoke to Dr Mae Starr regarding admission - will admit for additional management Patient endorsed to Dr Westbrook for additional management. Discussed with Dr Hughes. *DC/Admit/Observation/Transfer Diagnosis at time of Disposition: Hyperglycemia - Discharge Dispostion Condition at time of disposition: Stable Decision to Admit order: Yes - Referrals - Patient Instructions - Post Discharge Activity
[2017-11-22] MEDS ORDERED: INSULIN REGULAR HUMAN 100 UNITS/ML *VIAL ONE (05:23)
[2017-11-22 05:44] LABS: BASO % 0.6 % (0-2.0); EOS % 1.2 % (0-4.5); HEMATOCRIT 29.6 % (32.4-45.2); HEMOGLOBIN 10.1 GM/dL (10.7-15.3); LYMPH % 23.9 % (8-40); MCH 33.4 pg (25.7-33.7); MCHC 34.2 g/dl (32.0-36.0); MEAN CELL VOLUME 97.6 fl (80-96); MEAN PLT VOLUME 8.4 fl (7.5-11.1); MONO % 8.6 % (3.8-10.2); NEUT % 65.7 % (42.8-82.8); PLATELET COUNT 322 K/MM3 (134-434); RBC 3.03 M/mm3 (3.60-5.2); RDW 14.4 % (11.6-15.6); WHITE BLOOD COUNT 8.8 K/mm3 (4.0-10.0)
[2017-11-22 06:08] LABS: ALBUMIN 2.6 g/dl (3.4-5.0); ANION GAP 9 MMOL/L (8-16); BILIRUBIN,TOTAL 0.2 mg/dL (0.2-1.0); BLOOD UREA NITROGEN 11 mg/dL (7-18); CHLORIDE 101 mmol/L (98-107); CO2 25 mmol/L (21-32); CREATININE 1.1 mg/dL (0.55-1.02); GLUCOSE,RANDOM 271 mg/dL (74-106); POTASSIUM 4.2 mmol/L (3.5-5.1); SGOT/AST 10 U/L (15-37); SGPT/ALT 14 U/L (12-78); SODIUM 135 mmol/L (136-145)
[2017-11-22 06:11] LABS: ALK PHOS 122 U/L (45-117)
[2017-11-22 09:19] LABS: URINE APPEARANCE CLEAR; URINE BILIRUBIN NEGATIVE (<2.0 mg/dL); URINE COLOR STRAW; URINE GLUCOSE (UA) 3+ (NEGATIVE); URINE KETONE 1+ (NEGATIVE); URINE LEUK ESTERASE NEGATIVE (NEGATIVE); URINE NITRITE NEGATIVE (NEGATIVE); URINE PROTEIN NEGATIVE (NEGATIVE); URINE UROBILINOGEN NEGATIVE mg/dL (0.2-1.0)
[2017-11-22 09:26] LABS: EPI CELLS RARE /HPF (FEW)
[2017-11-22] MEDS ORDERED: SODIUM CHLORIDE 1,000 ML IV SCH (10:00)
[2017-11-22] MEDS ORDERED: CLOPIDOGREL BISULFATE 75 MG TABLET (FP) ONE (10:27)
[2017-11-22] MEDS ORDERED: ASPIRIN 81 MG CHEWABLE TABLETS ONE (10:27)
[2017-11-22] MEDS ORDERED: LISINOPRIL 5 MG TABLET (FP) ONE (10:27)
[2017-11-22] MEDS: ASPIRIN 81 MG CHEWABLE TABLETS PO SCH (10:30)
[2017-11-22] MEDS: LISINOPRIL 5 MG TABLET (FP) PO SCH (10:30)
[2017-11-22] MEDS: CLOPIDOGREL BISULFATE 75 MG TABLET (FP) PO SCH (10:30)
[2017-11-22] MEDS: INSULIN SLIDING SCALE (NOVOLOG) 1 VIAL SQ SCH ×3 (10:46→22:18)
--- NOTE | 2017-11-22 12:12 | HP ---
Admitting History and Physical - Primary Care Physician PCP: Flex Starr - Admission Chief Complaint: High sugar History of Present Illness: Pt states that for the last 3-4 days her BGM was constantly 350 to 450 and didn' t feel well; last night her BGM was read as "high" ( per her machine over 500); pt called 911. EMS checked her BGM ( unclear finding and coverage) and started her on IVF. - Past Medical History SPECIALIZED DEVELOPER: Yes: Seizure, Other (Essential tremor) Cardiovascular: Yes: CAD (with stents), [place] Pulmonary: Yes: COPD Endocrine: Yes: Diabetes Mellitus (since age 3), Other (DKA Hypoglicemia) - Past Surgical History Past Surgical History: Yes: CABG (3 stents) - Smoking History Smoking history: Former smoker Have you smoked in the past 12 months: No Aproximately how many cigarettes per day: 4 If you are a former smoker, when did you quit?: 2014 - Alcohol/Substance Use Hx Alcohol Use: No History of Substance Use: reports: Marijuana - Social History ADL: Independent History of Recent Travel: No Home Medications - Allergies Allergies/Adverse Reactions: Allergies Allergy/AdvReac Type Severity Reaction Status Date / Time No Known Drug Allergies Allergy Verified 11/22/17 03:22 - Home Medications Home Medications: Ambulatory Orders Aspirin 81 mg PO DAILY 03/12/17 Clopidogrel Bisulfate [Plavix] 75 mg PO DAILY 03/12/17 Insulin (Novolog 70/30) [Novolog Mix 70/30 Flexpen -] 5 units SQ DAILY 03/12/17 Lisinopril [Zestril] 2.5 mg PO DAILY 03/12/17 Oxycodone HCl [Oxycontin] 10 mg PO Q6H PRN 03/12/17 Primidone [Mysoline] 2 tab PO BID 03/12/17 Unobtainable 11/22/17 Family Disease History - Family Disease History Family Disease History: Heart Disease: Mother, Respiratory: Sister (asthma), Other: Father (volvulus) Review of Systems - Review of Systems Constitutional: denies: Chills, Fever Eyes: denies: Blurred Vision, Double Vision HENT: denies: Ear Discharge, Ear Pain, Nasal Congestion, Throat Pain Neck: denies: Decreased ROM, Pain on Movement, Stiffness Cardiovascular: denies: Chest Pain, Edema, Palpitations Respiratory: reports: SOB. denies: Cough, Wheezing Gastrointestinal: denies: Abdominal Pain, Diarrhea, Nausea, Vomiting Genitourinary: denies: Burning, Discharge, Dysuria Musculoskeletal: denies: Back Pain, Extremity Pain, Muscle Weakness Integumentary: denies: Blister, Pruritis, Rash Neurological: reports: Weakness. denies: Change in LOC, Change in Speech, Incoordination, Numbness, Unsteady Gait Endocrine: denies: Excessive Sweating, Intolerance to Cold Hematology/Lymphatic: denies: Easily Bruised, Excessive Bleeding Psychiatric: denies: Anxiety, Depression Physical Examination Vital Signs: Vital Signs Temperature 97.6 F 11/22/17 10:18 Pulse Rate 77 11/22/17 10:18 Respiratory Rate 18 11/22/17 10:18 Blood Pressure 120/58 11/22/17 10:18 O2 Sat by Pulse Oximetry (%) 99 11/22/17 10:18 Constitutional: Yes: No Distress, Calm Eyes: Yes: Conjunctiva Clear, EOM Intact, PERRL HENT: Yes: Normocephalic, Pharyngeal Erythema, Other (dry oral mucosa). No: Epistaxis, Rhinnorhea Neck: Yes: Trachea Midline. No: Lymphadenopathy Cardiovascular: Yes: Regular Rate and Rhythm, S1, S2 Respiratory: Yes: Regular, Other (coarse BS bilat) Gastrointestinal: Yes: Normal Bowel Sounds, Soft. No: Hepatomegaly, Tenderness ...Rectal Exam: Yes: Deferred Breast(s): Yes: Other (deferred) Musculoskeletal: No: Back Pain, Joint Swelling Edema: No Neurological: Yes: Alert, Oriented, Other (sensory ans motor examination is symmeteric in UE/ LE/ face) Psychiatric: Yes: Alert, Oriented Labs: CBC, BMP 11/22/17 05:37 11/22/17 05:37 Imaging - Results Chest X-ray: Report Reviewed Problem List - Problems (1) Hyperglycemia Code(s): R73.9 - HYPERGLYCEMIA, UNSPECIFIED (2) Weakness Code(s): R53.1 - WEAKNESS (3) Dehydration Code(s): E86.0 - DEHYDRATION (4) Diabetes mellitus Code(s): E11.9 - TYPE 2 DIABETES MELLITUS WITHOUT COMPLICATIONS (5) DKA (diabetic ketoacidoses) Code(s): E13.10 - OTH DIABETES MELLITUS WITH KETOACIDOSIS WITHOUT COMA Qualifiers: Diabetes mellitus type: type 1 Diabetes mellitus complication detail: without coma Qualified Code(s): E10.10 - Type 1 diabetes mellitus with ketoacidosis without coma (6) Anemia Code(s): D64.9 - ANEMIA, UNSPECIFIED (7) Diabetic gastroparesis Code(s): E11.43 - TYPE 2 DIABETES W DIABETIC AUTONOMIC (POLY)NEUROPATHY; K31.84 - GASTROPARESIS Assessment/Plan Serial BGM with Novolog coverage IVF Continue home meds AM labs PT eval. Case was d/w ER nurse
[2017-11-22] MEDS ORDERED: INSULIN NPH 100 UNITS/ML *VIAL ONE (16:42)
[2017-11-22] MEDS ORDERED: INSULIN (LEVEMIR) 100 UNITS/ML UNITS SQ ONE ×2 (22:52→23:21)
[2017-11-22] MEDS: PRIMIDONE 250 MG TABLET PO SCH (23:24)
[2017-11-23] MEDS: INSULIN SLIDING SCALE (NOVOLOG) 1 VIAL SQ SCH ×4 (06:44→22:32)
[2017-11-23 08:02] LABS: HEMATOCRIT 30.9 % (32.4-45.2); HEMOGLOBIN 10.4 GM/dL (10.7-15.3); MCHC 33.8 g/dl (32.0-36.0); MEAN CELL VOLUME 97.6 fl (80-96); MEAN PLT VOLUME 8.4 fl (7.5-11.1); PLATELET COUNT 293 K/MM3 (134-434); RBC 3.16 M/mm3 (3.60-5.2); RDW 14.3 % (11.6-15.6); WHITE BLOOD COUNT 7.5 K/mm3 (4.0-10.0)
[2017-11-23 08:09] LABS: ALBUMIN 2.5 g/dl (3.4-5.0); ANION GAP 10 MMOL/L (8-16); BILIRUBIN,TOTAL 0.2 mg/dL (0.2-1.0); BLOOD UREA NITROGEN 4 mg/dL (7-18); CALCIUM 8.1 mg/dL (8.5-10.1); CHLORIDE 107 mmol/L (98-107); CO2 24 mmol/L (21-32); GLUCOSE,RANDOM 149 mg/dL (74-106); POTASSIUM 3.6 mmol/L (3.5-5.1); SODIUM 141 mmol/L (136-145)
[2017-11-23 08:10] LABS: ALK PHOS 104 U/L (45-117); CREATININE 0.4 mg/dL (0.55-1.02); SGOT/AST 13 U/L (15-37); SGPT/ALT 12 U/L (12-78); TOT PROT 5.6 g/dl (6.4-8.2)
[2017-11-23] MEDS ORDERED: PT OWN MED DRAWER 7, Y5N ONE ×3 (09:51→21:50)
[2017-11-23] MEDS: CLOPIDOGREL BISULFATE 75 MG TABLET (FP) PO SCH (09:52)
[2017-11-23] MEDS: LISINOPRIL 5 MG TABLET (FP) PO SCH (09:52)
[2017-11-23] MEDS: ASPIRIN 81 MG CHEWABLE TABLETS PO SCH (09:53)
--- NOTE | 2017-11-23 10:36 | EKG ---
Test Reason : Blood Pressure : / mmHG Vent. Rate : 081 BPM Atrial Rate : 081 BPM P-R Int : 148 ms QRS Dur : 072 ms QT Int : 370 ms P-R-T Axes : 077 058 037 degrees QTc Int : 429 ms NORMAL SINUS RHYTHM BASELINE ARTIFACT WHEN COMPARED WITH ECG OF 31-MAR-2017 14:43, LIKELY NO SIGNIFICANT CHANGES Confirmed by SAMI MUNROE MD ([id number]) on 11/23/2017 10:36:13 AM Referred By: Confirmed By:SAMI MUNROE MD
[2017-11-23] MEDS: PRIMIDONE 250 MG TABLET PO SCH ×2 (13:12→22:19)
[2017-11-23] MEDS ORDERED: INSULIN (NOVOLOG) ASPART 100 UNITS/ML 10ML VIAL ONE ×2 (17:01→22:31)
--- NOTE | 2017-11-23 19:14 | PN ---
Progress Note, Physician History of Present Illness: Pt states that she is felling better, tolerated PO intake better, no N/V/ dysuria/ frequency. Pt w/o SOB, CP, palpitations - Current Medication List Current Medications: Active Medications Aspirin (Asa -) 81 mg PO DAILY [facility] Last Admin: 11/23/17 09:53 Dose: 81 mg Clopidogrel Bisulfate (Plavix -) 75 mg PO DAILY [facility] Last Admin: 11/23/17 09:52 Dose: 75 mg Insulin Aspart (Novolog Vial Sliding Scale -) 1 vial SQ ACHS [facility]; Protocol Last Admin: 11/23/17 17:06 Dose: 4 units Lisinopril (Prinivil) 2.5 mg PO DAILY [facility] Last Admin: 11/23/17 09:52 Dose: 2.5 mg Primidone (Mysoline -) 250 mg PO BID [facility] Last Admin: 11/23/17 13:12 Dose: 250 mg - Objective Vital Signs: Vital Signs Temperature 98.1 F 11/23/17 14:15 Pulse Rate 84 11/23/17 14:15 Respiratory Rate 19 11/23/17 14:15 Blood Pressure 133/60 11/23/17 14:15 O2 Sat by Pulse Oximetry (%) 97 11/22/17 21:00 Constitutional: Yes: No Distress, Calm Cardiovascular: Yes: Regular Rate and Rhythm, S1, S2 Respiratory: Yes: Regular, CTA Bilaterally, Poor Air Entry. No: Rales Gastrointestinal: Yes: Normal Bowel Sounds, Soft. No: Tenderness Edema: No Neurological: Yes: Alert, Oriented Labs: CBC, BMP 11/23/17 07:30 11/23/17 07:30 Problem List - Problems (1) Hyperglycemia Code(s): R73.9 - HYPERGLYCEMIA, UNSPECIFIED (2) Weakness Code(s): R53.1 - WEAKNESS (3) Dehydration Code(s): E86.0 - DEHYDRATION (4) Diabetes mellitus Code(s): E11.9 - TYPE 2 DIABETES MELLITUS WITHOUT COMPLICATIONS (5) DKA (diabetic ketoacidoses) Code(s): E13.10 - OTH DIABETES MELLITUS WITH KETOACIDOSIS WITHOUT COMA Qualifiers: Diabetes mellitus type: type 1 Diabetes mellitus complication detail: without coma Qualified Code(s): E10.10 - Type 1 diabetes mellitus with ketoacidosis without coma (6) Anemia Code(s): D64.9 - ANEMIA, UNSPECIFIED (7) Diabetic gastroparesis Code(s): E11.43 - TYPE 2 DIABETES W DIABETIC AUTONOMIC (POLY)NEUROPATHY; K31.84 - GASTROPARESIS (8) Hypoglycemia Code(s): E16.2 - HYPOGLYCEMIA, UNSPECIFIED Assessment/Plan Serial BGM with Novolog coverage Levermir was added; to adjust again off IVF Continue home meds AM labs PT eval appreciated Case was d/w pt's nurse
[2017-11-23] MEDS: HEPARIN NA (PORCINE) 5,000 UNITS/ML 1ML VIAL SQ SCH (22:19)
[2017-11-23] MEDS: INSULIN (LEVEMIR) 100 UNITS/ML UNITS SQ SCH (22:19)
[2017-11-24] MEDS: INSULIN SLIDING SCALE (NOVOLOG) 1 VIAL SQ SCH ×4 (06:15→21:44)
[2017-11-24] MEDS ORDERED: PT OWN MED DRAWER 7, Y5N ONE ×2 (06:59→21:32)
[2017-11-24 07:37] LABS: ANION GAP 9 MMOL/L (8-16); BLOOD UREA NITROGEN 6 mg/dL (7-18); CALCIUM 8.2 mg/dL (8.5-10.1); CHLORIDE 106 mmol/L (98-107); CO2 24 mmol/L (21-32); CREATININE 0.3 mg/dL (0.55-1.02); GLUCOSE,RANDOM 100 mg/dL (74-106); SODIUM 139 mmol/L (136-145)
[2017-11-24] MEDS: LISINOPRIL 5 MG TABLET (FP) PO SCH (12:20)
[2017-11-24] MEDS: ASPIRIN 81 MG CHEWABLE TABLETS PO SCH (12:21)
[2017-11-24] MEDS: CLOPIDOGREL BISULFATE 75 MG TABLET (FP) PO SCH (12:21)
[2017-11-24] MEDS: HEPARIN NA (PORCINE) 5,000 UNITS/ML 1ML VIAL SQ SCH ×2 (12:21→21:41)
[2017-11-24] MEDS: PRIMIDONE 250 MG TABLET PO SCH ×2 (12:21→21:41)
[2017-11-24] MEDS ORDERED: INSULIN (NOVOLOG) ASPART 100 UNITS/ML 10ML VIAL ONE (12:23)
[2017-11-24 15:30] VITALS: BMI 19.6
[2017-11-24] MEDS ORDERED: ACETAMINOPHEN 325 MG TABLET (FP) ONE (16:24)
[2017-11-24] MEDS: INSULIN (LEVEMIR) 100 UNITS/ML UNITS SQ SCH (21:42)
--- NOTE | 2017-11-24 23:04 | PN ---
Progress Note, Physician History of Present Illness: Pt states that she is felling better, tolerated PO intake better, no N/V/ dysuria/ frequency. Pt w/o SOB, CP, palpitations. Pt doesn't know what insulin is taking home, names the insulin by color (I tried yesterday with her nurse to identify the type of insulin; it is unreliable ) - Current Medication List Current Medications: Active Medications Aspirin (Asa -) 81 mg PO DAILY [facility] Last Admin: 11/24/17 12:21 Dose: 81 mg Clopidogrel Bisulfate (Plavix -) 75 mg PO DAILY [facility] Last Admin: 11/24/17 12:21 Dose: 75 mg Heparin Sodium (Porcine) (Heparin -) 5,000 unit SQ BID [facility] Last Admin: 11/24/17 21:41 Dose: 5,000 unit Insulin Aspart (Novolog Vial Sliding Scale -) 1 vial SQ ACHS [facility]; Protocol Last Admin: 11/24/17 21:44 Dose: 2 units Insulin Detemir (Levemir Vial) 6 units SQ HS [facility] Last Admin: 11/24/17 21:42 Dose: 6 units Lisinopril (Prinivil) 2.5 mg PO DAILY [facility] Last Admin: 11/24/17 12:20 Dose: 2.5 mg Primidone (Mysoline -) 250 mg PO BID [facility] Last Admin: 11/24/17 21:41 Dose: 250 mg - Objective Vital Signs: Vital Signs Temperature 98.3 F 11/24/17 18:25 Pulse Rate 72 11/24/17 18:25 Respiratory Rate 18 11/24/17 18:25 Blood Pressure 140/63 11/24/17 18:25 O2 Sat by Pulse Oximetry (%) 100 11/24/17 09:00 Constitutional: Yes: No Distress, Calm Cardiovascular: Yes: Regular Rate and Rhythm, S1, S2 Respiratory: Yes: Regular, CTA Bilaterally. No: Rales Gastrointestinal: Yes: Normal Bowel Sounds, Soft. No: Tenderness Edema: No Neurological: Yes: Alert, Oriented Labs: CBC, BMP 11/23/17 07:30 11/24/17 06:30 Problem List - Problems (1) Hyperglycemia Code(s): R73.9 - HYPERGLYCEMIA, UNSPECIFIED (2) Weakness Code(s): R53.1 - WEAKNESS (3) Dehydration Code(s): E86.0 - DEHYDRATION (4) Diabetes mellitus Code(s): E11.9 - TYPE 2 DIABETES MELLITUS WITHOUT COMPLICATIONS (5) DKA (diabetic ketoacidoses) Code(s): E13.10 - OTH DIABETES MELLITUS WITH KETOACIDOSIS WITHOUT COMA Qualifiers: Diabetes mellitus type: type 1 Diabetes mellitus complication detail: without coma Qualified Code(s): E10.10 - Type 1 diabetes mellitus with ketoacidosis without coma (6) Anemia Code(s): D64.9 - ANEMIA, UNSPECIFIED (7) Diabetic gastroparesis Code(s): E11.43 - TYPE 2 DIABETES W DIABETIC AUTONOMIC (POLY)NEUROPATHY; K31.84 - GASTROPARESIS (8) Hypoglycemia Code(s): E16.2 - HYPOGLYCEMIA, UNSPECIFIED (9) Malnutrition Code(s): E46 - UNSPECIFIED PROTEIN-CALORIE MALNUTRITION (10) Hypoproteinemia Code(s): E77.8 - OTHER DISORDERS OF GLYCOPROTEIN METABOLISM Assessment/Plan Serial BGM with Novolog coverage Levermir was added; ACBK BGM better controlled. Pt with history of hypoglicemia, with several hospitalizations for BGM below 40. To favor day coverage with regular or NPH insulin. Any Insulin adjustment needs to be done in small steps off IVF Continue home meds AM labs To f/u with CM for possible VALVE GRINDER at home. DC planning
[2017-11-25] MEDS ORDERED: DEXTROSE 50%-WATER - 25 GM/50 ML VIAL ONE (06:48)
[2017-11-25] MEDS ORDERED: DEXTROSE 50%-WATER - 25 GM/50 ML VIAL IVPUSH PRN (06:55)
[2017-11-25] MEDS ORDERED: DEXTROSE 50%-WATER 25 GM/50 ML DISP.SYRIN IVPUSH PRN (06:56)
[2017-11-25] MEDS: INSULIN SLIDING SCALE (NOVOLOG) 1 VIAL SQ SCH (07:03)
[2017-11-25] MEDS ORDERED: PT OWN MED DRAWER 7, Y5N ONE (09:02)
[2017-11-25] MEDS: HEPARIN NA (PORCINE) 5,000 UNITS/ML 1ML VIAL SQ SCH (09:10)
[2017-11-25] MEDS: PRIMIDONE 250 MG TABLET PO SCH (09:10)
[2017-11-25] MEDS: ASPIRIN 81 MG CHEWABLE TABLETS PO SCH (09:10)
[2017-11-25] MEDS: CLOPIDOGREL BISULFATE 75 MG TABLET (FP) PO SCH (09:10)
[2017-11-25] MEDS: LISINOPRIL 5 MG TABLET (FP) PO SCH (09:10)
[2017-11-25 09:49] VITALS: PULSE 69; TEMP 98.3
[2017-11-25] MEDS ORDERED: INSULIN SLIDING SCALE (NOVOLOG) 1 VIAL SQ SCH ×2 (10:41→11:03)
--- NOTE | 2017-11-25 11:10 | DS ---
Physical Examination Vital Signs: Vital Signs Temperature 98.3 F 11/25/17 09:00 Pulse Rate 69 11/25/17 09:00 Respiratory Rate 17 11/25/17 09:00 Blood Pressure 116/52 11/25/17 09:00 O2 Sat by Pulse Oximetry (%) 100 11/24/17 21:00 Findings/Remarks: AM BGM was d/w pt's nurse. Pt w/o anxiety palpitation, swetting, SOB, CP when BGM was 67. Pt w/o fever, chills, SOB, CP, palp, abd apin, N, V, diarrhea, dysuria, frequency. Pt wants to go home. I spoke with pt's nurse, SW and community development specialist about pt's condition and management and need for outpatient support. I reviewed with DM management; all questions were answered; pt understands it.. Time spent for managing pt's care: over 50 minutes. Constitutional: Yes: No Distress, Calm Cardiovascular: Yes: Regular Rate and Rhythm, S1, S2 Respiratory: Yes: Regular, CTA Bilaterally. No: Rales Gastrointestinal: Yes: Normal Bowel Sounds, Soft. No: Tenderness Edema: No Neurological: Yes: Alert, Oriented Labs: CBC, BMP 11/23/17 07:30 11/24/17 06:30 Discharge Summary Reason For Visit: HYPERGLYCEMIA Current Active Problems Dehydration (Acute) Hyperglycemia (Acute) Weakness (Acute) Hospital Course: Pt with significant Hx/ DM, DKA, Hypoglicemia, came to ER because not feeling well, high BGM ( above 300) for couple of days and high above glucometer ability to provide a reading the day of ER visit. Infection was R/O, Insulin management was changed with acceptable control of glucose level. Pt to be DC' ed home with VNS. Condition: Stable - Instructions Diet, Activity, Other Instructions: ADA, low cholesterol. Referrals: Flex Starr MD [Staff Physician] - (next week) Disposition: HOME - Home Medications Comprehensive Discharge Medication List: Ambulatory Orders
[2017-11-25 14:32] VITALS: BP 139/62
[2017-11-25] MEDS ORDERED: INSULIN (LEVEMIR) 100 UNITS/ML UNITS SQ SCH (22:00)
== END 2017-11-25 15:06 | disposition home or self-care (01) | DRG 638 ==
LOC: JER 02:58 → JERBED 06:06 → J5S 18:56
PROVIDERS: ADMIT Internal Medicine; ATTEND Internal Medicine
DX: E11.10 Type 2 diabetes mellitus with ketoacidosis without coma (principal); E46 Unspecified protein-calorie malnutrition; Z68.1 Body mass index [BMI] 19.9 or less, adult; R53.1 Weakness; E86.0 Dehydration; D64.9 Anemia, unspecified; E11.43 Type 2 diabetes mellitus with diabetic autonomic (poly)neuropathy; K31.84 Gastroparesis; E16.2 Hypoglycemia, unspecified; I25.10 Atherosclerotic heart disease of native coronary artery without angina pectoris; I25.2 Old myocardial infarction; J44.9 Chronic obstructive pulmonary disease, unspecified; R25.1 Tremor, unspecified; Z79.4 Long term (current) use of insulin; Z95.5 Presence of coronary angioplasty implant and graft; Z95.1 Presence of aortocoronary bypass graft; Z87.891 Personal history of nicotine dependence
CPT/HCPCS: 36415; 71045-TC-FY; 80048; 80053; 81003; 81015; 82009; 82550; 82962; 84484; 85025; 85027; 93005; 93010; 97116-GP; 97161-GP; 99285-25; J1644; J7030

== ENCOUNTER 2017-12-30 01:55 | Inpatient (IN) | payer OTHER ==
[2017-12-30] MEDS ORDERED: SODIUM CHLORIDE 1,000 ML IV STA (02:07)
--- NOTE | 2017-12-30 02:09 | PDOC ---
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 There is no increased redness at the site and no fever was reported at home. patient was send home on cephalexin yesterday . Patient denies any fevers/chills reports not being able to eat yesterday. Denies nausea, vomiting, abdominal pain, chest pain,. Past History - Past Medical History Allergies/Adverse Reactions: Allergies Allergy/AdvReac Type Severity Reaction Status Date / Time No Known Drug Allergies Allergy Verified 12/30/17 02:22 Home Medications: Ambulatory Orders Aspirin 81 mg PO DAILY 03/12/17 Clopidogrel Bisulfate [Plavix] 75 mg PO DAILY 03/12/17 Lisinopril [Zestril] 2.5 mg PO DAILY 03/12/17 Primidone [Mysoline] 2 tab PO BID 03/12/17 Insulin Aspart [Novolog Flexpen] 0 - 10 unit SQ ACHS 30 Days #2 insuln.pen MDD 4 11/25/17 Insulin Detemir [Levemir Flextouch] 5 unit SQ HS #1 insuln.pen MDD 1 11/25/17 Anemia: No Asthma: No Cancer: Yes (VAGINAL/CERVICAL CANCER- S/P LASAR SURGERY) Cardiac Disorders: Yes (ASHD, TRIPLE BYPASS, S/P [place] X1 in 2004,STENT X'S 3) CVA: No COPD: No CHF: No Dementia: No Diabetes: Yes (IDDM) GI Disorders: No Disorders: No HTN: Yes Hypercholesterolemia: Yes Liver Disease: No Seizures: No Thyroid Disease: No - Surgical History Abdominal Surgery: No Appendectomy: No Cardiac Surgery: Yes (THREE STENTS 2006) Cholecystectomy: No Lung Surgery: No Neurologic Surgery: No Orthopedic Surgery: Yes (BILATERAL CTR, carpal tunnel, shoulder) - Immunization History Td Vaccination: No TDAP Vaccination: No Immunization Up to Date: No - Suicide/Smoking/Psychosocial Hx Smoking Status: Yes Smoking History: Never smoked Years of Tobacco Use: 15 Have you smoked in the past 12 months: No Number of Cigarettes Smoked Daily: 4 If you are a former smoker, when did you quit?: 2014 Cigars Per Day: 10 'Breaking Loose' booklet given: 01/24/16 Hx Alcohol Use: No Drug/Substance Use Hx: No Substance Use Type: None Hx Substance Use Treatment: No Review of Systems - Review of Systems Able to Perform ROS?: Yes Is the patient limited Slovak proficient: No Constitutional: Yes: Loss of Appetite, Malaise, Weakness. No: Symptoms Reported , See HPI, Chills, Diaphoresis, Fever, Night Sweats, Weight Stable, Unintentional Wgt. Loss, Unexplained wgt Loss, Other Respiratory: No: Symptoms reported, See HPI, Cough, Orthopnea, Shortness of Breath, SOB with Exertion, SOB at Rest, Stridor, Wheezing, Productive cough, Hemoptysis, Other Cardiac (ROS): No: Symptoms Reported, See HPI, Chest Pain, Edema, Irregular Heart Rate, Lightheadedness, Palpitations, Syncope, Chest Tightness, Other ABD/GI: No: Symptoms Reported, See HPI, Abdominal Distended, Abd. Pain w/ defecation, Blood Streaked Bowels, Constipated, Diarrhea, Difficulty Swallowing , Nausea, Poor Appetite, Poor Fluid Intake, Rectal Bleeding, Vomiting, Indigestion, Abdominal cramping, Tarry Stools, Other Integumentary: No: Symptoms Reported, See HPI, Bruising, Change in Color, Change in Hair/Nails, Dryness, Erythema, Flushing, Lesions, Lumps, Pallor, Pruritus, Rash, Sweating, Other *Physical Exam - Vital Signs 12/30/17 04:49 Last Vital Signs Temp Pulse Resp BP Pulse Ox 98.4 F 98 H 16 109/51 L 95 12/30/17 01:55 12/30/17 01:55 12/30/17 01:55 12/30/17 01:55 12/30/17 03:53 - Physical Exam General Appearance: Yes: Mild Distress Respiratory/Chest: positive: Lungs Clear, Normal Breath Sounds Integumentary: positive: Other (left tyler wound with draiage) Neurologic: positive: Fully Oriented, Alert ED Treatment Course - LABORATORY CBC & Chemistry Diagram: 12/30/17 03:18 12/30/17 05:05 Medical Decision Making - Medical Decision Making A: DKA? P: cbc cmp Lactic acid 12/30/17 05:[address] Clement Starr patient to be admitted for further management of care. 12/30/17 05:40 12/30/17 06:07 12/30/17 06:[address] Wilkes ICU . pending chemistry. VBG Ph 7.15. she may need IV insulin drip if with DKA 12/30/17 07:03 Patient to be admitted to the ICU. need insulin drip. will corrrect hypokalemia prior to starting drip *DC/Admit/Observation/Transfer Diagnosis at time of Disposition: Lactic acidosis, Hyperglycemia DKA (diabetic ketoacidoses) Qualifiers: Diabetes mellitus type: type 1 Diabetes mellitus complication detail: without coma Qualified Code(s): E10.10 - Type 1 diabetes mellitus with ketoacidosis without coma Wound infection complicating hardware Qualifiers: Encounter type: initial encounter Qualified Code(s): T84.7XXA - Infection and inflammatory reaction due to other internal orthopedic prosthetic devices, implants and grafts, initial encounter - Discharge Dispostion Condition at time of disposition: Fair - Referrals - Patient Instructions - Post Discharge Activity
--- NOTE | 2017-12-30 02:24 | PDOC ---
*Physical Exam - Vital Signs Last Vital Signs Temp Pulse Resp BP Pulse Ox 98.4 F 98 H 16 109/51 L 95 12/30/17 01:55 12/30/17 01:55 12/30/17 01:55 12/30/17 01:55 12/30/17 01:55 ED Treatment Course - LABORATORY CBC & Chemistry Diagram: 12/30/17 03:18 12/31/17 00:05 Medical Decision Making - Critical Care Time Total Critical Care Time (minutes): 90 Critical Care Statement: The care of this patient involved high complexity decision making to prevent further life threatening deterioration of the patient 's condition and/or to evaluate & treat vital organ system(s) failure or risk of failure. - Medical Decision Making 12/30/17 02:24 Ms Mendoza presents to the ER with a complaint of weakness and dehydration Pt seen by yesterday due to ulcer which is not worse, no surrounding erythema Labs reveal: DKA Dehydration Laboratory Tests 12/30/17 12/30/17 12/30/17 03:18 03:18 03:18 WBC 15.7 H Hgb 10.4 L Hct 33.5 Plt Count 280 VBG pH 7.15 L* POC VBG pCO2 26.3 L D POC VBG pO2 45.8 D Mixed VBG HCO3 8.7 L* Sodium Potassium Chloride Carbon Dioxide Anion Gap BUN Creatinine Random Glucose Lactic Acid 4.3 H* Urine Blood Urine Nitrite Ur Leukocyte Esterase Acetone, Qual 12/30/17 12/30/17 12/30/17 03:18 05:05 05:45 WBC Hgb Hct Plt Count VBG pH POC VBG pCO2 POC VBG pO2 Mixed VBG HCO3 Sodium 146 H Potassium 2.8 L* Chloride 119 H Carbon Dioxide 5 L Anion Gap 22 H BUN 8 Creatinine 0.3 L Random Glucose 316 H* Lactic Acid Urine Blood 1+ H Urine Nitrite Negative Ur Leukocyte Esterase Negative Acetone, Qual Positive large 3+ H pt is hypokalemic will replete this prior to insulin drip Pt is very dehydrated and is being hydrated Pt seen by Midlevel Provider under my direct supervision Pt interviewed and examined Ancillary studies reviewed Pt is critically ill and is best served in the ICU EKG:NSR rate of 96 bpm, axis nml, no st elevation or depression, t wave inversion v3, v4 I agree with plan as outlined by Midlevel Provider *DC/Admit/Observation/Transfer Diagnosis at time of Disposition: DKA (diabetic ketoacidoses), Wound infection complicating hardware, Lactic acidosis, Hyperglycemia - Discharge Dispostion Condition at time of disposition: Fair - Referrals - Patient Instructions - Post Discharge Activity
[2017-12-30 03:46] LABS: BASO % 0.2 % (0-2.0); HEMATOCRIT 33.5 % (32.4-45.2); HEMOGLOBIN 10.4 GM/dL (10.7-15.3); LYMPH % 6.1 % (8-40); MCH 31.3 pg (25.7-33.7); MCHC 31.1 g/dl (32.0-36.0); MEAN CELL VOLUME 100.4 fl (80-96); MEAN PLT VOLUME 9.3 fl (7.5-11.1); MONO % 6.9 % (3.8-10.2); NEUT % 86.8 % (42.8-82.8); PLATELET COUNT 280 K/MM3 (134-434); RBC 3.34 M/mm3 (3.60-5.2); RDW 14.6 % (11.6-15.6); WHITE BLOOD COUNT 15.7 K/mm3 (4.0-10.0)
[2017-12-30] MEDS ORDERED: SODIUM CHLORIDE 500 ML IV STA (04:12)
[2017-12-30] MEDS ORDERED: PIPERACILLIN/TAZOB 3.375 GM 3.375 GM in DEXTROSE 5%-WATER - 50 ML IVPB ONE (04:31)
[2017-12-30] MEDS ORDERED: VANCOMYCIN 1 GRAM (PRE-DOCKED) 1,000 MG/250 ML BAG IVPB ONE ×2 (04:50→05:25)
[2017-12-30] MEDS ORDERED: PIPERACILLIN/TAZOB 3.375 GM 3.375 GM/50 ML BAG IVPB ONE (05:25)
[2017-12-30 05:42] LABS: INR 1.16 (0.83-1.09); PROTHROMBIN TIME (PATIENT) 13.7 SEC (9.7-13.0)
[2017-12-30 05:44] LABS: ACTIVATED PTT 17.6 SECONDS (25.2-36.5)
[2017-12-30] MEDS ORDERED: SODIUM CHLORIDE 1,000 ML IV SCH ×3 (05:45→14:54)
[2017-12-30 05:47] LABS: VENOUS PC02 26.3 mmHg (38-52); VENOUS PH 7.15 (7.32-7.42); VENOUS PO2 45.8 mmHg (28-48)
[2017-12-30 06:52] LABS: URINE APPEARANCE CLEAR; URINE BILIRUBIN NEGATIVE (<2.0 mg/dL); URINE COLOR LTYELLOW; URINE GLUCOSE (UA) 3+ (NEGATIVE); URINE KETONE 2+ (NEGATIVE); URINE LEUK ESTERASE NEGATIVE (NEGATIVE); URINE NITRITE NEGATIVE (NEGATIVE); URINE PROTEIN NEGATIVE (NEGATIVE); URINE UROBILINOGEN NEGATIVE mg/dL (0.2-1.0)
[2017-12-30] MEDS ORDERED: POTASSIUM CHLORIDE 20 MEQ PREMIX IVPB 100 ML IVPB ONE ×2 (06:53→06:54)
[2017-12-30 06:55] LABS: ALBUMIN 1.3 g/dl (3.4-5.0); ALK PHOS 71 U/L (45-117); ANION GAP 22 MMOL/L (8-16); BILIRUBIN,TOTAL 0.5 mg/dL (0.2-1); BLOOD UREA NITROGEN 8 mg/dL (7-18); CHLORIDE 119 mmol/L (98-107); CO2 5 mmol/L (21-32); CREATININE 0.3 mg/dL (0.55-1.3); SGOT/AST 5 U/L (15-37); SGPT/ALT < 6 U/L (13-61); SODIUM 146 mmol/L (136-145); TOT PROT 3.3 g/dl (6.4-8.2)
[2017-12-30] MEDS ORDERED: POTASSIUM CHLORIDE ORAL LIQUID 20 MEQ/15 ML PO ONE (07:06)
[2017-12-30 07:16] LABS: GLUCOSE,RANDOM 316 mg/dL (74-106); POTASSIUM 2.8 mmol/L (3.5-5.1)
[2017-12-30 07:27] LABS: EPI CELLS RARE /HPF (FEW); URINE BACTERIA RARE /hpf (NONE SEEN); URINE HYALINE CAST 4 /lpf; URINE MUCUS RARE
[2017-12-30 07:47] LABS: CALCIUM 5.1 mg/dL (8.5-10.1)
[2017-12-30] MEDS: KCL 10 MEQ IVPB 10 MEQ/100 ML INFUS.BAG IVPB SCH ×4 (07:57→10:34)
[2017-12-30] MEDS ORDERED: POTASSIUM CHLORIDE ORAL LIQUID 20 MEQ/15 ML ONE (07:58)
[2017-12-30] MEDS ORDERED: KCL 10 MEQ IVPB 10 MEQ/100 ML INFUS.BAG IVPB ONE (07:58)
[2017-12-30] MEDS ORDERED: SODIUM CHLORIDE 0.9%/KCL 20 MEQ/1,000 ML INFUS.BAG IV SCH (08:15)
[2017-12-30] MEDS ORDERED: KCL 10 MEQ IVPB 20 MEQ/200 ML INFUS.BAG IVPB ONE (09:35)
[2017-12-30 10:18] LABS: VENOUS PC02 7.4 mmHg (38-52)
[2017-12-30 10:19] LABS: VENOUS PH 7.18 (7.32-7.42)
--- NOTE | 2017-12-30 10:28 | EKG ---
Test Reason : Blood Pressure : / mmHG Vent. Rate : 096 BPM Atrial Rate : 096 BPM P-R Int : 152 ms QRS Dur : 076 ms QT Int : 358 ms P-R-T Axes : 077 070 -71 degrees QTc Int : 452 ms NORMAL SINUS RHYTHM NONSPECIFIC ST AND T WAVE ABNORMALITY ABNORMAL ECG WHEN COMPARED WITH ECG OF 22-NOV-2017 05:09, NONSPECIFIC T WAVE ABNORMALITY NOW EVIDENT IN LATERAL LEADS Confirmed by JOE HUTCHINS, DEENA ([id number]) on 12/30/2017 10:28:15 AM Referred By: Confirmed By:DEENA DIAZ MD
[2017-12-30 10:59] LABS: ALBUMIN 2.4 g/dl (3.4-5.0); ALK PHOS 131 U/L (45-117); ANION GAP 29 MMOL/L (8-16); BILIRUBIN,TOTAL 0.6 mg/dL (0.2-1); BLOOD UREA NITROGEN 14 mg/dL (7-18); CALCIUM 8.3 mg/dL (8.5-10.1); CHLORIDE 99 mmol/L (98-107); CO2 4 mmol/L (21-32); CREATININE 0.8 mg/dL (0.55-1.3); POTASSIUM 5.2 mmol/L (3.5-5.1); SGOT/AST 11 U/L (15-37); SGPT/ALT 9 U/L (13-61); SODIUM 133 mmol/L (136-145); TOT PROT 5.8 g/dl (6.4-8.2)
[2017-12-30 11:11] LABS: GLUCOSE,RANDOM 535 mg/dL (74-106)
[2017-12-30 11:11] LABS: ARTERIAL BLD GAS O2 SATURATION 97.5 % (90-98.9); ARTERIAL BLOOD GAS BASE EXCESS -25.9 meq/l (-2-2)
[2017-12-30] MEDS ORDERED: INSULIN REGULAR 100 UNITS in SODIUM CHLORIDE 99 ML IVPB SCH ×2 (11:15→22:36)
[2017-12-30 11:16] LABS: ARTERIAL BLOOD GAS pH 7.14 (7.35-7.45)
[2017-12-30] MEDS ORDERED: INSULIN (NOVOLOG) ASPART 100 UNITS/ML 10ML VIAL SQ ONE (11:46)
--- NOTE | 2017-12-30 11:54 | HP ---
Admitting History and Physical - Primary Care Physician PCP: Flex Starr - Admission Chief Complaint: High sugar History of Present Illness: Pt with significant Hx/o DM, CAD, [place], CABG admissions for DKA, admissions for hypoglicemia, left tibia and fibula Fx (in 2016) and s/p ORIF ( at [facility]) come from home to ER because of high sugar (glucose above 400). In ER she was found to be in DKA and was started on IV Insulin drip and admitted to ICU. 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, Other (Essential tremor) Cardiovascular: Yes: CAD (with stents), [place] Pulmonary: Yes: COPD Endocrine: Yes: Diabetes Mellitus (since age 3), Other (DKA, Hypoglicemia) - Past Surgical History Past Surgical History: Yes: CABG (3 stents) Additional Past Surgical History: left tibia, fibula ORIF (at [facility]; in 2015) - Smoking History Smoking history: Former smoker Have you smoked in the past 12 months: No Aproximately how many cigarettes per day: 4 If you are a former smoker, when did you quit?: 2014 - Alcohol/Substance Use Hx Alcohol Use: No History of Substance Use: reports: Marijuana - Social History ADL: Independent History of Recent Travel: No Home Medications - Allergies Allergies/Adverse Reactions: Allergies Allergy/AdvReac Type Severity Reaction Status Date / Time No Known Drug Allergies Allergy Verified 12/30/17 02:22 - Home Medications Home Medications: Ambulatory Orders Aspirin 81 mg PO DAILY 03/12/17 Clopidogrel Bisulfate [Plavix] 75 mg PO DAILY 03/12/17 Lisinopril [Zestril] 2.5 mg PO DAILY 03/12/17 Primidone [Mysoline] 2 tab PO BID 03/12/17 Insulin Aspart [Novolog Flexpen] 0 - 10 unit SQ ACHS 30 Days #2 insuln.pen MDD 4 11/25/17 Insulin Detemir [Levemir Flextouch] 5 unit SQ HS #1 insuln.pen MDD 1 11/25/17 Family Disease History - Family Disease History Family Disease History: Heart Disease: Mother, Respiratory: Sister (asthma), Other: Father (volvulus) Review of Systems - Review of Systems Constitutional: denies: Chills, Fever Eyes: denies: Blurred Vision, Eye Pain HENT: denies: Difficult Swallowing, Ear Discharge, Ear Pain, Nasal Congestion, Throat Pain Neck: denies: Pain on Movement, Stiffness Cardiovascular: reports: Chest Pain (last night). denies: Edema, Palpitations Respiratory: denies: SOB, Wheezing Gastrointestinal: reports: Abdominal Pain (last night), Nausea, Vomiting (last night) Genitourinary: denies: Burning, Dysuria, Hematuria Musculoskeletal: denies: Back Pain, Extremity Pain Neurological: reports: Change in LOC, Weakness. denies: Change in Speech, Numbness Endocrine: denies: Excessive Sweating, Intolerance to Cold Hematology/Lymphatic: denies: Easily Bruised, Excessive Bleeding Psychiatric: denies: Anxiety, Depression Physical Examination Vital Signs: Vital Signs Temperature 97.6 F 12/30/17 10:17 Pulse Rate 89 12/30/17 10:17 Respiratory Rate 14 12/30/17 10:17 Blood Pressure 107/62 12/30/17 10:17 O2 Sat by Pulse Oximetry (%) 100 12/30/17 09:12 Constitutional: Yes: No Distress, Calm Eyes: Yes: Conjunctiva Clear, EOM Intact, PERRL HENT: Yes: Normocephalic, Other (dry oral mucosa). No: Pharyngeal Erythema, Rhinnorhea Cardiovascular: Yes: Regular Rate and Rhythm, S1, S2 Respiratory: Yes: Regular, CTA Bilaterally. No: Rales (decreased inspiratory effort) Gastrointestinal: Yes: Normal Bowel Sounds, Soft. No: Tenderness, Tenderness, Epigastrium, Tenderness, Rebound, Vomiting ...Rectal Exam: Yes: Deferred Renal/: No: CVA Tenderness - Left, CVA Tenderness - Right Breast(s): Yes: Other (deferred) Musculoskeletal: No: Back Pain, Joint Swelling Edema: No Wound/Incision: Yes: Other (left simone-lateral below knee: two 1 cm ulcers, minimal surrounding reythema, no calor, no discharge, no bleed) Neurological: Yes: Alert, Confusion, Weakness, Other (motor and sensory examination symmetric (limited secondary to decreased pt participation) in UE/ LE/ face) Psychiatric: Yes: Alert Labs: CBC, BMP 12/30/17 03:18 12/30/17 09:56 Imaging - Results Chest X-ray: Report Reviewed, Image Reviewed Problem List - Problems (1) DKA (diabetic ketoacidoses) Code(s): E13.10 - OTH DIABETES MELLITUS WITH KETOACIDOSIS WITHOUT COMA Qualifiers: Diabetes mellitus type: type 1 Diabetes mellitus complication detail: without coma Qualified Code(s): E10.10 - Type 1 diabetes mellitus with ketoacidosis without coma (2) Lactic acidosis Code(s): E87.2 - ACIDOSIS (3) Diabetes mellitus Code(s): E11.9 - TYPE 2 DIABETES MELLITUS WITHOUT COMPLICATIONS (4) Hyperkalemia Code(s): E87.5 - HYPERKALEMIA (5) Hypokalemia Code(s): E87.6 - HYPOKALEMIA (6) CAD (coronary artery disease) Code(s): I25.10 - ATHSCL HEART DISEASE OF [place] CORONARY ARTERY W/O ANG PCTRS (7) COPD (chronic obstructive pulmonary disease) Code(s): J44.9 - CHRONIC OBSTRUCTIVE PULMONARY DISEASE, UNSPECIFIED (8) Leg ulcer, left Code(s): L97.929 - NON-PRS CHRONIC ULC UNSP PRT OF L LOW LEG W UNSP SEVERITY (9) Dehydration Code(s): E86.0 - DEHYDRATION (10) Essential tremor Code(s): G25.0 - ESSENTIAL TREMOR Assessment/Plan Admit to ICU. Insulin drip per protocol CCM, ID , Cardio, Endo consults Case was d/w Dr. Licea. IV abtx DVT proph GI proph Case was d/w pt's dg; all questions were answered Prognostic : reserved AM labs Case was d/w pt's nurse. Time spent for coordinating pt's care: 90 minutes
--- NOTE | 2017-12-30 12:00 | PN ---
Teaching Attending Note Name of Resident: Christina Garcia ATTENDING PHYSICIAN STATEMENT I saw and evaluated the patient. I reviewed the resident's note and discussed the case with the resident. I agree with the resident's findings and plan as documented. SUBJECTIVE: Pt seen and examined in the ICU. Briefly, 57yo female with h/o TBI with paraplegia, IDDM, CAD s/p CABG, sacral ulcers who was admitted with hyperglycemia on fingersticks. Found to be in DKA with anion gap 22. States compliance with insulin although pt poor historian. No fevers, chills. No cough or chest pain. +polyuria but without dysuria. OBJECTIVE: Vital Signs Period Temp Pulse Resp BP Sys/Chen Pulse Ox Last 24 Hr 97.6 F-99.1 F 89-98 14-20 105-111/51-62 95-100 Intake & Output 12/27/17 12/28/17 12/29/17 12/30/17 23:59 23:59 23:59 23:59 Intake Total 1725 Balance 1725 Weight 50.802 kg Gen: tremulous Heart: RRR Lung: decreased breath sounds at the bases Abd: soft, nontender Ext: +contracted CBC, BMP 12/30/17 03:18 12/30/17 09:56 Active Medications Chlorhexidine Gluconate (Hibiclens For Decolonization -) 1 applic TP HS TAYLA Heparin Sodium (Porcine) (Heparin -) 5,000 unit SQ TID TAYLA Insulin Human Regular 100 (units/ Sodium Chloride) 100 mls @ 5.08 mls/hr IVPB TITR TAYLA; Protocol Last Admin: 12/30/17 11:38 Dose: 0.1 units/kg/hr, 5.08 mls/hr Sodium Chloride (Normal Saline -) 1,000 mls @ 200 mls/hr IV ASDIR TAYLA Last Admin: 12/30/17 11:00 Dose: 200 mls/hr Insulin Aspart (Novolog Vial) 5 units SQ ONCE ONE; Protocol Stop: 12/30/17 11:47 Last Admin: 12/30/17 11:54 Dose: 5 units Mupirocin (Bactroban Ointment (For Decolonization) -) 1 applic NS BID TAYLA Stop: 01/04/18 21:59 ASSESSMENT AND PLAN: Diabetic Ketoacidosis Lactic Acidosis r/o Sepsis CAD s/p CABG h/o TBI Paraplegia - insulin gtt - monitor BGM, BMP, anion gap - IVF resuscitation - monitor lytes - empiric antibiotics - f/u cultures - can d/c antibiotics if cultures negative - aspiration precautions - O2 to keep SpO2 >90% - DVT prophylaxis - ICU monitoring while on insulin gtt
--- NOTE | 2017-12-30 12:33 | CON.CARD ---
Consult Consult Specialty:: Cardiology - History of Present Illness History of Present Illness: Pt seen and examined in the ICU. Briefly, 57yo female with h/o TBI with paraplegia, IDDM, CAD s/p CABG, sacral ulcers who was admitted with hyperglycemia on fingersticks. Found to be in DKA with anion gap 22. States compliance with insulin although pt poor historian. No fevers, chills. No cough or chest pain. +polyuria but without dysuria. 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, Other (Essential tremor) Cardio/Vascular: Yes: CAD (with stents), [place] Pulmonary: Yes: COPD Endocrine: Yes: Diabetes Mellitus (since age 3), Other (DKA Hypoglicemia) Additional Medical History: neuropathy, tremors - Past Surgical History Past Surgical History: Yes: CABG (3 stents) - Alcohol/Substance Use Hx Alcohol Use: No History of Substance Use: reports: Marijuana - Smoking History Smoking history: Never smoked Have you smoked in the past 12 months: No Aproximately how many cigarettes per day: 4 If you are a former smoker, when did you quit?: 2015 - Social History Usual Living Arrangement: With Child ADL: Independent History of Recent Travel: No Home Medications - Allergies Allergies/Adverse Reactions: Allergies Allergy/AdvReac Type Severity Reaction Status Date / Time No Known Drug Allergies Allergy Verified 12/30/17 02:22 - Home Medications Home Medications: Ambulatory Orders Aspirin 81 mg PO DAILY 03/12/17 Clopidogrel Bisulfate [Plavix] 75 mg PO DAILY 03/12/17 Lisinopril [Zestril] 2.5 mg PO DAILY 03/12/17 Primidone [Mysoline] 2 tab PO BID 03/12/17 Insulin Aspart [Novolog Flexpen] 0 - 10 unit SQ ACHS 30 Days #2 insuln.pen MDD 4 11/25/17 Insulin Detemir [Levemir Flextouch] 5 unit SQ HS #1 insuln.pen MDD 1 11/25/17 Family Disease History - Family Disease History Family Disease History: Heart Disease: Mother, Respiratory: Sister (asthma), Other: Father (volvulus) Review of Systems - Review of Systems Constitutional: reports: Weakness Eyes: reports: No Symptoms HENT: reports: No Symptoms Neck: reports: No Symptoms Cardiovascular: reports: No Symptoms Gastrointestinal: reports: No Symptoms Genitourinary: reports: No Symptoms Breasts: reports: No Symptoms Reported Musculoskeletal: reports: No Symptoms Integumentary: reports: No Symptoms Neurological: reports: No Symptoms Endocrine: reports: No Symptoms Hematology/Lymphatic: reports: No Symptoms Psychiatric: reports: No Symptoms Vital Signs: Vital Signs Temperature 97.6 F 12/30/17 10:17 Pulse Rate 98 H 12/30/17 12:00 Respiratory Rate 22 H 12/30/17 12:00 Blood Pressure 122/50 L 12/30/17 12:00 O2 Sat by Pulse Oximetry (%) 100 12/30/17 09:12 Constitutional: Yes: Well Nourished, No Distress, Calm Eyes: Yes: WNL, Conjunctiva Clear, EOM Intact HENT: Yes: WNL, Atraumatic, Normocephalic Neck: Yes: WNL, Supple, Trachea Midline Respiratory: Yes: WNL, Regular, CTA Bilaterally Gastrointestinal: Yes: WNL, Normal Bowel Sounds Renal/: Yes: WNL Cardiovascular: Yes: WNL, Regular Rate and Rhythm Musculoskeletal: Yes: WNL Extremities: Yes: WNL Integumentary: Yes: WNL ...Motor Strength: WNL Psychiatric: Yes: WNL, Alert, Oriented - Other Data Labs, Other Data: CBC, BMP 12/30/17 03:18 12/30/17 09:56 INR, PTT INR 1.16 (0.83-1.09) H 12/30/17 05:05 Troponin, BNP 12/30/17 12/30/17 12/30/17 03:18 05:05 09:56 Troponin I Cancelled 0.03 0.03 Troponin, BNP 12/30/17 12/30/17 12/30/17 03:18 05:05 09:56 Troponin I Cancelled 0.03 0.03 Imaging - Results Chest X-ray: Image Reviewed (no i/e) EKG: Image Reviewed (sr nonspec rep abn) Problem List - Problems (1) DKA (diabetic ketoacidoses) Code(s): E13.10 - OTH DIABETES MELLITUS WITH KETOACIDOSIS WITHOUT COMA Qualifiers: Diabetes mellitus type: type 1 Diabetes mellitus complication detail: without coma Qualified Code(s): E10.10 - Type 1 diabetes mellitus with ketoacidosis without coma (2) Hyperglycemia Code(s): R73.9 - HYPERGLYCEMIA, UNSPECIFIED (3) Lactic acidosis Code(s): E87.2 - ACIDOSIS (4) Wound infection complicating hardware Code(s): T84.7XXA - INFECT/INFLM REACT DUE TO OTH INT ORTH PROSTH DEV/GRFT, INIT Qualifiers: Encounter type: initial encounter Qualified Code(s): T84.7XXA - Infection and inflammatory reaction due to other internal orthopedic prosthetic devices, implants and grafts, initial encounter (5) Anemia Code(s): D64.9 - ANEMIA, UNSPECIFIED (6) Asthma Code(s): J45.909 - UNSPECIFIED ASTHMA, UNCOMPLICATED (7) Closed left hip fracture Code(s): S72.002A - FRACTURE OF UNSP PART OF NECK OF LEFT FEMUR, INIT (8) Corneal abrasion, left Code(s): S05.02XA - INJ CONJUNCTIVA AND CORNEAL ABRASION W/O FB, LEFT EYE, INIT Qualifiers: Encounter type: initial encounter Qualified Code(s): S05.02XA - Injury of conjunctiva and corneal abrasion without foreign body, left eye, initial encounter (9) Dehydration Code(s): E86.0 - DEHYDRATION (10) Diabetes mellitus Code(s): E11.9 - TYPE 2 DIABETES MELLITUS WITHOUT COMPLICATIONS (11) Diabetic gastroparesis Code(s): E11.43 - TYPE 2 DIABETES W DIABETIC AUTONOMIC (POLY)NEUROPATHY; K31.84 - GASTROPARESIS (12) Diabetic hypoglycemia Code(s): E11.649 - TYPE 2 DIABETES MELLITUS WITH HYPOGLYCEMIA WITHOUT COMA (13) Diarrhea Code(s): R19.7 - DIARRHEA, UNSPECIFIED (14) Essential tremor Code(s): G25.0 - ESSENTIAL TREMOR (15) Facial contusion Code(s): S00.83XA - CONTUSION OF OTHER PART OF HEAD, INITIAL ENCOUNTER Qualifiers: Encounter type: initial encounter Qualified Code(s): S00.83XA - Contusion of other part of head, initial encounter (16) Fall Code(s): W19.XXXA - UNSPECIFIED FALL, INITIAL ENCOUNTER (17) Fever Code(s): R50.9 - FEVER, UNSPECIFIED (18) Finger pain, left Code(s): M79.645 - PAIN IN LEFT FINGER(S) (19) Fracture of left tibia and fibula Code(s): S82.202A - UNSP FRACTURE OF SHAFT OF LEFT TIBIA, INIT FOR CLOS FX; S82.402A - UNSP FRACTURE OF SHAFT OF LEFT FIBULA, INIT FOR CLOS FX Qualifiers: Encounter type: initial encounter Fracture type: closed Qualified Code(s) : S82.202A - Unspecified fracture of shaft of left tibia, initial encounter for closed fracture (20) History of [place] (myocardial infarction) Code(s): I25.2 - OLD MYOCARDIAL INFARCTION (21) Hyperkalemia Code(s): E87.5 - HYPERKALEMIA (22) Hypoglycemia Code(s): E16.2 - HYPOGLYCEMIA, UNSPECIFIED (23) Hypoglycemia due to insulin Code(s): E16.0 - DRUG-INDUCED HYPOGLYCEMIA WITHOUT COMA; T38.3X5A - ADVERSE EFFECT OF INSULIN AND ORAL HYPOGLYCEMIC DRUGS, INIT (24) Hypokalemia Code(s): E87.6 - HYPOKALEMIA (25) Hypomagnesemia Code(s): E83.42 - HYPOMAGNESEMIA (26) Hypophosphatasia Code(s): E83.39 - OTHER DISORDERS OF PHOSPHORUS METABOLISM (27) Hypoproteinemia Code(s): E77.8 - OTHER DISORDERS OF GLYCOPROTEIN METABOLISM (28) Hypothermia Code(s): T68.XXXA - HYPOTHERMIA, INITIAL ENCOUNTER (29) Hypothyroid Code(s): E03.9 - HYPOTHYROIDISM, UNSPECIFIED (30) IDDM (insulin dependent diabetes mellitus) Code(s): E11.9 - TYPE 2 DIABETES MELLITUS WITHOUT COMPLICATIONS; Z79.4 - CRISIS THERAPIST (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 OF INSULIN (31) Lethargy Code(s): R53.83 - OTHER FATIGUE (32) Leukocytosis Code(s): D72.829 - ELEVATED WHITE BLOOD CELL COUNT, UNSPECIFIED (33) Malnutrition Code(s): E46 - UNSPECIFIED PROTEIN-CALORIE MALNUTRITION (34) Nausea and vomiting Code(s): R11.2 - NAUSEA WITH VOMITING, UNSPECIFIED (35) Proximal humerus fracture Code(s): S42.209A - UNSP FRACTURE OF UPPER END OF UNSP HUMERUS, INIT FOR CLOS FX (36) Seizure Code(s): R56.9 - UNSPECIFIED CONVULSIONS (37) Shoulder pain, acute Code(s): M25.519 - PAIN IN UNSPECIFIED SHOULDER (38) Systemic inflammatory response syndrome (SIRS) Code(s): R65.10 - SIRS OF NON-INFECTIOUS ORIGIN W/O ACUTE ORGAN DYSFUNCTION (39) UTI (urinary tract infection) Code(s): N39.0 - URINARY TRACT INFECTION, SITE NOT SPECIFIED Qualifiers: Urinary tract infection type: acute cystitis Hematuria presence: with hematuria Qualified Code(s): N30.01 - Acute cystitis with hematuria (40) Unable to ambulate Code(s): R26.2 - DIFFICULTY IN WALKING, NOT ELSEWHERE CLASSIFIED (41) Urinary retention Code(s): R33.9 - RETENTION OF URINE, UNSPECIFIED (42) Weakness Code(s): R53.1 - WEAKNESS (43) CAD (coronary artery disease) Code(s): I25.10 - ATHSCL HEART DISEASE OF [place] CORONARY ARTERY W/O ANG PCTRS (44) COPD (chronic obstructive pulmonary disease) Code(s): J44.9 - CHRONIC OBSTRUCTIVE PULMONARY DISEASE, UNSPECIFIED (45) Diabetic autonomic neuropathy associated with diabetes mellitus due to underlying condition Code(s): E08.43 - DIAB DUE TO UNDRL COND W DIABETIC AUTONM (POLY)NEUROPATHY (46) Humeral head fracture Code(s): S42.293A - OTH DISP FX OF UPPER END OF UNSP HUMERUS, INIT FOR CLOS FX (47) Knee fracture, left Code(s): [id number] - (48) Smoker Code(s): F17.200 - NICOTINE DEPENDENCE, UNSPECIFIED, UNCOMPLICATED Assessment/Plan 57yo female with h/o TBI with paraplegia, IDDM, CAD s/p CABG, sacral ulcers who was admitted with hyperglycemia on fingersticks. Found to be in DKA with anion gap 22. States compliance with insulin although pt poor historian. No fevers, chills. No cough or chest pain. +polyuria but without dysuria. Plan IVF Insulin icu monitoring echo r/o mi cc time spent 70 min
--- NOTE | 2017-12-30 14:38 | CON.ID ---
Consult Consult Specialty:: infectious disease Referred by:: dr rdz Reason for Consultation:: drainage from the leg - History of Present Illness Chief Complaint: 57 pietro female with brittle DM admitted with DKA History of Present Illness: 57 yo female with brittle DM admitted for DKA seen in ED on 12/28 for drainage and pain left leg unclear how long this has been going on no fevers apparently uses a walker at home lives with her daughter has a sacral ulcer history from patient, daughter at bedside, and daughter on cell phone (who lives with her)-all poor historians - History Source History Provided By: Family Member Limitations to Obtaining History: Poor Historian (family are very poor historians) - 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, Other (Essential tremor) Cardio/Vascular: Yes: CAD (with stents), [place] Pulmonary: Yes: COPD Endocrine: Yes: Diabetes Mellitus (since age 3), Other (DKA, Hypoglicemia) Dermatology: Yes: Other (sacral ulcer) Additional Medical History: neuropathy, tremors - Past Surgical History Past Surgical History: Yes: CABG (3 stents) Additional Surgical History: left tib /fib fracture 2016 s/p orif ([facility]) - Alcohol/Substance Use Hx Alcohol Use: No History of Substance Use: reports: Marijuana - Smoking History Smoking history: Former smoker Have you smoked in the past 12 months: No Aproximately how many cigarettes per day: 4 If you are a former smoker, when did you quit?: 2014 - Social History Usual Living Arrangement: With Child ADL: Independent History of Recent Travel: No Home Medications - Allergies Allergies/Adverse Reactions: Allergies Allergy/AdvReac Type Severity Reaction Status Date / Time No Known Drug Allergies Allergy Verified 12/30/17 02:22 - Home Medications Home Medications: Ambulatory Orders Aspirin 81 mg PO DAILY 03/12/17 Clopidogrel Bisulfate [Plavix] 75 mg PO DAILY 03/12/17 Lisinopril [Zestril] 2.5 mg PO DAILY 03/12/17 Primidone [Mysoline] 2 tab PO BID 03/12/17 Insulin Aspart [Novolog Flexpen] 0 - 10 unit SQ ACHS 30 Days #2 insuln.pen MDD 4 11/25/17 Insulin Detemir [Levemir Flextouch] 5 unit SQ HS #1 insuln.pen MDD 1 11/25/17 Family Disease History - Family Disease History Family Disease History: Heart Disease: Mother, Respiratory: Sister (asthma), Other: Father (volvulus) Review of Systems - Review of Systems Constitutional: denies: Fever Eyes: reports: No Symptoms HENT: reports: No Symptoms Cardiovascular: reports: No Symptoms Respiratory: reports: No Symptoms Gastrointestinal: reports: No Symptoms Physical Exam Vital Signs: Vital Signs Temperature 97.6 F 12/30/17 10:17 Pulse Rate 98 H 12/30/17 12:00 Respiratory Rate 22 H 12/30/17 12:00 Blood Pressure 122/50 L 12/30/17 12:00 O2 Sat by Pulse Oximetry (%) 100 12/30/17 09:12 Constitutional: Yes: Thin Eyes: Yes: Conjunctiva Clear HENT: Yes: Atraumatic, Normocephalic Neck: Yes: Supple Cardiovascular: Yes: Regular Rate and Rhythm Respiratory: Yes: CTA Bilaterally Gastrointestinal: Yes: Normal Bowel Sounds, Soft. No: Tenderness ...Rectal Exam: Yes: Deferred Extremities: Yes: Other (2 1 cm masses with seropurulent drainage) Edema: No Wound/Incision: Yes: Other (stage 2 sacral ulcer, with surrounding erythema, no purulence) Neurological: Yes: Other (rigid all over) Psychiatric: Yes: Alert Labs: CBC, BMP 12/30/17 03:18 12/30/17 09:56 Microbiology 12/30/17 05:48 Abscess Gram Stain - Final Imaging - Results Chest X-ray: Report Reviewed, Image Reviewed Problem List - Problems (1) DKA (diabetic ketoacidoses) Code(s): E13.10 - OTH DIABETES MELLITUS WITH KETOACIDOSIS WITHOUT COMA Qualifiers: Diabetes mellitus type: type 1 Diabetes mellitus complication detail: without coma Qualified Code(s): E10.10 - Type 1 diabetes mellitus with ketoacidosis without coma (2) Wound infection complicating hardware Code(s): T84.7XXA - INFECT/INFLM REACT DUE TO OTH INT ORTH PROSTH DEV/GRFT, INIT Qualifiers: Encounter type: initial encounter Qualified Code(s): T84.7XXA - Infection and inflammatory reaction due to other internal orthopedic prosthetic devices, implants and grafts, initial encounter Assessment/Plan suspected hardware infection with drainage from the left leg- cultures pending check esr/crp vanco/zosyn ortho evaluation treat DKA d/w Dr Rdz d/w ICU team
--- NOTE | 2017-12-30 14:41 | ECHO ---
Version: 1 Name: DONOVAN LEE Exam: Adult Echocardiogram Study Date: 12/30/2017, 1:39 PM Age: 57 Years MMode/2D Measurements & Calculations IVSd: 0.73 cm LVIDs: 2.33 cm LVIDd: 3.8 cm LVPWd: 0.67 cm Ao root diam: 2.14 cm LA dimension: 2.5 cm Doppler Measurements & Calculations MV E max mahendra: 76.0 cm/sec Med E/e': 8.0 MV A max mahendra: 68.6 cm/sec Med Peak E' Mahendra: 9.5 cm/sec MV E/A: 1.11 Lat E/e': 6.1 Lat Peak E' Mahednra: 12.4 cm/sec Ao max P.5 mmHg Ao V2 max: 154.2 cm/sec Procedure The study was technically difficult with many images being suboptimal in quality. Left Ventricle The left ventricular size, thickness and function are normal. The left ventricle is not well visuali zed. The left ventricular ejection fraction is normal. Left Ventricular Filling pattern is normal for age. Re gional wall motion abnormalities cannot be excluded due to limited visualization. Right Ventricle The right ventricle is not well visualized. Atria Normal left and right atrial size and function. Mitral Valve There is mild mitral valve thickening. There is no mitral valve stenosis. There is trace to mild gordy ral regurgitation. Tricuspid Valve The tricuspid valve is not well visualized. There is no tricuspid stenosis. There was insufficient T R detected to calculate RV systolic pressure. Aortic Valve The aortic valve is not well visualized. No hemodynamically significant valvular aortic stenosis. No aortic regurgitation is present. Pulmonic Valve The pulmonic valve is not well visualized. There is no pulmonic valvular stenosis. There is no pulmo imani valvular regurgitation. Great Vessels The aortic root is normal size. Pericardium/Pleura There is no pericardial effusion. Summary Statements The study was technically difficult with many images being suboptimal in quality. The left ventricular size, thickness and function are normal The left ventricular ejection fraction is normal. Left Ventricular Filling pattern is normal for age. Regional wall motion abnormalities cannot be excluded due to limited visualization. The left ventricle is not well visualized. There is trace to mild mitral regurgitation. There was insufficient TR detected to calculate RV systolic pressure. MD Philip Mancia 12/30/2017, 2:41 PM Ordering Physician: Philip Mancia Referring Physician: SHIREEN BERG Performed By: Tania Jarrett
[2017-12-30] MEDS ORDERED: PIPERACILLIN/TAZOBACTAM 3.375 GM VIAL IVPB ONE ×2 (14:57→18:15)
[2017-12-30] MEDS ORDERED: DEXTROSE 5%-WATER - 50 ML IVPB ONE ×2 (14:58→18:15)
[2017-12-30] MEDS: ASPIRIN 81 MG CHEWABLE TABLETS PO SCH (14:59)
[2017-12-30] MEDS: CLOPIDOGREL BISULFATE 75 MG TABLET (FP) PO SCH (14:59)
[2017-12-30] MEDS: PIPERACILLIN/TAZOB 3.375 GM 3.375 GM in DEXTROSE 5%-WATER - 50 ML IVPB SCH ×2 (14:59→18:21)
[2017-12-30] MEDS: HEPARIN NA (PORCINE) 5,000 UNITS/ML 1ML VIAL SQ SCH ×2 (14:59→22:34)
--- NOTE | 2017-12-30 15:38 | CONSULT ---
Consultation: REQUESTING PROVIDER: Dr Flores CONSULT REQUEST: We have been asked to medically evaluate this patient for ICU admission. HISTORY OF PRESENT ILLNESS: Radha Mendoza is a 57yo woman with a PMH of CAD s/p RI (2004) s/p stent, asthma, COPD, tremor, hypothyroidism, L tib/fib fx s/p ORIF (2015), known left knee wound, and IDDM. She presented to the ED today reporting a blood glucose reading of "high" at home, so she presented to the ED. Ms Mendoza had a similar hospital admission approximately 1 month ago. Initially in the ED, she was unable to provide much history. However, her daughter (via phone) who cares for her reported that Ms Mendoza does not like needle sticks, so she does not always check her blood sugars or take her insulin. It is unclear how frequently this is normally done at home. The daughter also reports that they are unsure what she should be eating with her diabetes. Ms Mendoza and her daughters are unable to provide a history about her left knee wound. Ms Mendoza states both that the wound has been present one day and that it has been chronic. Her daughter, similarly, states that she had no wounds yesterday but later said the wound has been present for two years. However, Ms Mendoza was seen in the ED two days ago reporting increased pain in her left leg. Her ED course was notable for leukocytosis to 15.7, VBG with pH 7.15, K+ 2.8, lactate 3.16, glucose 316, UA positive for ketones. She was given 1.5L NS, vanc/ zosyn, and 20mEq of IV potassium. ICU was called to evaluate for admission for DKA. REVIEW OF SYSTEMS: Patient unable to provide full ROS - No frequent headaches + chronic abdominal pain. No nausea, vomiting No SOB or chest pain. + Increased thirst and urination + Poor appetite + Leg pain + Weakness (states cannot move legs or L arm) + Chronic wounds PHYSICAL EXAMINATION Vital Signs - 24 hr 12/30/17 12/30/17 12/30/17 01:55 03:53 05:18 Temperature 98.4 F Pulse Rate 98 H Pulse Rate [ 91 H Left] Respiratory 16 20 Rate Blood Pressure 109/51 L Blood Pressure 111/55 L [Right Arm] O2 Sat by Pulse 95 95 96 Oximetry (%) 10/17/18 10/17/18 10/17/18 06:00 08:42 09:12 Temperature 99.1 F 98.6 F 98.6 F Pulse Rate Pulse Rate [ 93 H 90 Left] Respiratory 16 16 Rate Blood Pressure Blood Pressure 105/57 L 105/58 L [Right Arm] O2 Sat by Pulse 100 100 Oximetry (%) 12/30/17 12/30/17: 12:00 Temperature 97.6 F Pulse Rate 89 98 H Pulse Rate [ Left] Respiratory 14 22 H Rate Blood Pressure 107/62 122/50 L Blood Pressure [Right Arm] O2 Sat by Pulse Oximetry (%) General: Uncomfortable, tremulous HEENT: PERRL, EOMI, very dry mouth and lips Cards: RRR, no murmur appreciated Pulm: Comfortable on room air, clear to auscultation bilaterally Abd: Soft, nontender, nondistended Ext: No LE edema. 2x dime sized, round wounds on left lateral knee. No surrounding erythema or edema. Clean dry gauze covering. Does not move left arm or BLE. Limbs nontender to palpation. No gross deformity. Neuro: A&Ox3 (but gives contradictory information), CN grossly intact, Continuous tremors Psych: Mood appropriate to situation Laboratory Results - last 24 hr 12/30/17 12/30/17 12/30/17 03:18 03:18 03:18 WBC 15.7 H RBC 3.34 L Hgb 10.4 L Hct 33.5 MCV 100.4 H MCH 31.3 MCHC 31.1 L RDW 14.6 Plt Count 280 MPV 9.3 D Absolute Neuts (auto) 13.6 H Neutrophils % 86.8 H D Lymphocytes % 6.1 L D Monocytes % 6.9 Eosinophils % 0.0 D Basophils % 0.2 Nucleated RBC % 0 PT with INR Cancelled INR Cancelled PTT (Actin FS) Cancelled ABG pH ABG pCO2 at Pt Temp ABG pO2 at Pt Temp ABG HCO3 ABG O2 Sat (Measured) ABG O2 Content ABG Base Excess VBG pH POC VBG pCO2 POC VBG pO2 Mixed VBG HCO3 Sodium Cancelled Potassium Cancelled Chloride Cancelled Carbon Dioxide Cancelled Anion Gap Cancelled BUN Cancelled Creatinine Cancelled Creat Clearance w eGFR Cancelled Random Glucose Cancelled Serum Osmolality Lactic Acid Calcium Cancelled Total Bilirubin Cancelled AST Cancelled ALT Cancelled Alkaline Phosphatase Cancelled Creatine Kinase Cancelled Troponin I Cancelled Total Protein Cancelled Albumin Cancelled Urine Color Urine Appearance Urine pH Ur Specific Douglas Urine Protein Urine Glucose (UA) Urine Ketones Urine Blood Urine Nitrite Urine Bilirubin Urine Urobilinogen Ur Leukocyte Esterase Urine WBC (Auto) Urine RBC (Auto) Ur Epithelial Cells Urine Bacteria Hyaline Casts Urine Mucus Acetone, Qual 12/30/17 12/30/17 12/30/17 03:18 03:18 03:18 WBC RBC Hgb Hct MCV MCH MCHC RDW Plt Count MPV Absolute Neuts (auto) Neutrophils % Lymphocytes % Monocytes % Eosinophils % Basophils % Nucleated RBC % PT with INR INR PTT (Actin FS) ABG pH ABG pCO2 at Pt Temp ABG pO2 at Pt Temp ABG HCO3 ABG O2 Sat (Measured) ABG O2 Content ABG Base Excess VBG pH 7.15 L* POC VBG pCO2 26.3 L D POC VBG pO2 45.8 D Mixed VBG HCO3 8.7 L* Sodium Potassium Chloride Carbon Dioxide Anion Gap BUN Creatinine Creat Clearance w eGFR Random Glucose Serum Osmolality Lactic Acid 4.3 H* Calcium Total Bilirubin AST ALT Alkaline Phosphatase Creatine Kinase Troponin I Total Protein Albumin Urine Color Urine Appearance Urine pH Ur Specific Douglas Urine Protein Urine Glucose (UA) Urine Ketones Urine Blood Urine Nitrite Urine Bilirubin Urine Urobilinogen Ur Leukocyte Esterase Urine WBC (Auto) Urine RBC (Auto) Ur Epithelial Cells Urine Bacteria Hyaline Casts Urine Mucus Acetone, Qual Positive large 3+ H 12/30/17 12/30/17 12/30/17 05:05 05:05 05:05 WBC RBC Hgb Hct MCV MCH MCHC RDW Plt Count MPV Absolute Neuts (auto) Neutrophils % Lymphocytes % Monocytes % Eosinophils % Basophils % Nucleated RBC % PT with INR 13.70 H INR 1.16 H PTT (Actin FS) 17.6 L ABG pH ABG pCO2 at Pt Temp ABG pO2 at Pt Temp ABG HCO3 ABG O2 Sat (Measured) ABG O2 Content ABG Base Excess VBG pH POC VBG pCO2 POC VBG pO2 Mixed VBG HCO3 Sodium 146 H Potassium 2.8 L* Chloride 119 H Carbon Dioxide 5 L Anion Gap 22 H BUN 8 Creatinine 0.3 L Creat Clearance w eGFR > 60 Random Glucose 316 H* Serum Osmolality Lactic Acid 2.6 H* Calcium 5.1 L* Total Bilirubin 0.5 AST 5 L ALT < 6 L Alkaline Phosphatase 71 Creatine Kinase Troponin I 0.03 Total Protein 3.3 L Albumin 1.3 L Urine Color Urine Appearance Urine pH Ur Specific Douglas Urine Protein Urine Glucose (UA) Urine Ketones Urine Blood Urine Nitrite Urine Bilirubin Urine Urobilinogen Ur Leukocyte Esterase Urine WBC (Auto) Urine RBC (Auto) Ur Epithelial Cells Urine Bacteria Hyaline Casts Urine Mucus Acetone, Qual 12/30/17 12/30/17 12/30/17 05:45 09:56 09:56 WBC RBC Hgb Hct MCV MCH MCHC RDW Plt Count MPV Absolute Neuts (auto) Neutrophils % Lymphocytes % Monocytes % Eosinophils % Basophils % Nucleated RBC % PT with INR INR PTT (Actin FS) ABG pH ABG pCO2 at Pt Temp ABG pO2 at Pt Temp ABG HCO3 ABG O2 Sat (Measured) ABG O2 Content ABG Base Excess VBG pH POC VBG pCO2 POC VBG pO2 Mixed VBG HCO3 Sodium 133 L Potassium 5.2 H Chloride 99 Carbon Dioxide 4 L Anion Gap 29 H BUN 14 Creatinine 0.8 Creat Clearance w eGFR > 60 Random Glucose 535 H* Serum Osmolality Lactic Acid Calcium 8.3 L Total Bilirubin 0.6 AST 11 L ALT 9 L Alkaline Phosphatase 131 H Creatine Kinase Troponin I 0.03 Total Protein 5.8 L Albumin 2.4 L Urine Color Ltyellow Urine Appearance Clear Urine pH 5.0 Ur Specific Douglas 1.015 Urine Protein Negative Urine Glucose (UA) 3+ H Urine Ketones 2+ H Urine Blood 1+ H Urine Nitrite Negative Urine Bilirubin Negative Urine Urobilinogen Negative Ur Leukocyte Esterase Negative Urine WBC (Auto) 1 Urine RBC (Auto) <1 Ur Epithelial Cells Rare Urine Bacteria Rare Hyaline Casts 4 Urine Mucus Rare Acetone, Qual 12/30/17 12/30/17 12/30/17 09:56 09:56 10:00 WBC RBC Hgb Hct MCV MCH MCHC RDW Plt Count MPV Absolute Neuts (auto) Neutrophils % Lymphocytes % Monocytes % Eosinophils % Basophils % Nucleated RBC % PT with INR INR PTT (Actin FS) ABG pH ABG pCO2 at Pt Temp ABG pO2 at Pt Temp ABG HCO3 ABG O2 Sat (Measured) ABG O2 Content ABG Base Excess VBG pH 7.18 L* POC VBG pCO2 7.4 L* D POC VBG pO2 183.0 H* D Mixed VBG HCO3 2.7 L* Sodium Potassium Chloride Carbon Dioxide Anion Gap BUN Creatinine Creat Clearance w eGFR Random Glucose Serum Osmolality 319 H Lactic Acid 2.6 H* Calcium Total Bilirubin AST ALT Alkaline Phosphatase Creatine Kinase Troponin I Total Protein Albumin Urine Color Urine Appearance Urine pH Ur Specific Douglas Urine Protein Urine Glucose (UA) Urine Ketones Urine Blood Urine Nitrite Urine Bilirubin Urine Urobilinogen Ur Leukocyte Esterase Urine WBC (Auto) Urine RBC (Auto) Ur Epithelial Cells Urine Bacteria Hyaline Casts Urine Mucus Acetone, Qual 12/30/17 11:00 WBC RBC Hgb Hct MCV MCH MCHC RDW Plt Count MPV Absolute Neuts (auto) Neutrophils % Lymphocytes % Monocytes % Eosinophils % Basophils % Nucleated RBC % PT with INR INR PTT (Actin FS) ABG pH 7.14 L* D ABG pCO2 at Pt Temp 8.0 L* D ABG pO2 at Pt Temp 145.0 H D ABG HCO3 2.6 L* ABG O2 Sat (Measured) 97.5 ABG O2 Content 12.9 L ABG Base Excess -25.9 L* VBG pH POC VBG pCO2 POC VBG pO2 Mixed VBG HCO3 Sodium Potassium Chloride Carbon Dioxide Anion Gap BUN Creatinine Creat Clearance w eGFR Random Glucose Serum Osmolality Lactic Acid Calcium Total Bilirubin AST ALT Alkaline Phosphatase Creatine Kinase Troponin I Total Protein Albumin Urine Color Urine Appearance Urine pH Ur Specific [place] Urine Protein Urine Glucose (UA) Urine Ketones Urine Blood Urine Nitrite Urine Bilirubin Urine Urobilinogen Ur Leukocyte Esterase Urine WBC (Auto) Urine RBC (Auto) Ur Epithelial Cells Urine Bacteria Hyaline Casts Urine Mucus Acetone, Qual Active Medications Generic Name Dose Route Start Last Admin Trade Name Edwin PRN Reason Stop Dose Admin Aspirin 81 mg 12/30/17 13:00 12/30/17 14:59 Asa - PO 81 mg DAILY [facility] Administration Chlorhexidine Gluconate 1 applic 12/30/17 22:00 Hibiclens For Decolonization - TP HS [facility] Clopidogrel Bisulfate 75 mg 12/30/17 13:00 12/30/17 14:59 Plavix - PO 75 mg DAILY [facility] Administration Heparin Sodium (Porcine) 5,000 unit 12/30/17 14:00 12/30/17 14:59 Heparin - SQ 5,000 unit TID [facility] Administration Insulin Human Regular 100 100 mls @ 5.08 mls/hr 12/30/17 11:15 12/30/17 11:38 units/ Sodium Chloride IVPB 0.1 units/kg/hr TITR [facility] 5.08 mls/hr Administration Protocol 0.1 UNITS/KG/HR Vancomycin HCl 750 mg/ 250 mls @ 150 mls/hr 12/30/17 18:00 Dextrose IVPB BID@0600,1800 [facility] Protocol Piperacillin Sod/Tazobactam 50 mls @ 100 mls/hr 12/30/17 14:35 12/30/17 14:59 Sod 3.375 gm/ Dextrose IVPB 100 mls/hr Q8H-IV [facility] Administration Protocol Sodium Chloride 1,000 mls @ 250 mls/hr 12/30/17 14:54 12/30/17 15:00 Normal Saline - IV 250 mls/hr ASDIR [facility]LA Administration Mupirocin 1 applic 12/30/17 22:00 Bactroban Ointment (For Decolonization) - NS 01/04/18 21:59 BID TAYLA Primidone 500 mg 12/30/17 13:00 Mysoline - PO BID [facility] ASSESSMENT/PLAN: Radha Mendoza is a 57yo woman with a PMH of CAD, previous RI, asthma/COPD, tremor, hypothyroidism, IDDM who presented to the ED today in DKA. She was admitted to the ICU for management. Neuro: - Chronic tremor - Continue home primidone - Giving conflicting information; monitor mental status CV: - Significant cardiac history - Echo today; no significant abnormalities - Continue home ASA and plavix - Holding lisinopril during acute illness Pulm: - h/o COPD v asthma. No home meds known - Currently no issues. May add nebs if necessary - IS 10x per hour Heme: - Antiplatelet therapy with ASA/plavis - Monitor daily CBC GI: - NPO Renal: - Monitor I/O ID: - Concern for infection of L knee wound. - Dr Plummer following - expressed purulent fluid from knee wound. May have infected LLE hardware; will discuss with Dr Starr regarding ortho consult - Wound and blood cultures pending - Continue empiric vanc/zosyn Endo: - Presents in DKA - Initial pH 7.14 on VBG, 7.15 on ABG. +urine ketones, bicarb 5, glucose initially 316 increased to 535 on repeat - Hypokalemic to 2.8 on presentation, repleted prior to insulin drip - Continue insulin drip with IVF at 250cc/hr - Q1hr fingersticks - Q4 BMP to monitor lytes Musc: - Stage 2 sacral ulcer - Turn and reposition Q2hr PPx: - SQH - No indication for GI ppx FEN: - General diet - SLIV - Replete lytes PRN Dispo: - Monitor in ICU Discussed with ICU team. Christina Garcia PGy1 Visit type - Emergency Visit Emergency Visit: Yes ED Registration Date: 12/30/17 Care time: The patient presented to the Emergency Department on the above date and was hospitalized for further evaluation of their emergent condition. - New Patient This patient is new to me today: Yes Date on this admission: 12/30/17 - Critical Care Critical Care patient: Yes Total Critical Care Time (in minutes): 45 Critical Care Statement: The care of this patient involved high complexity decision making to prevent further life threatening deterioration of the patient 's condition and/or to evaluate & treat vital organ system(s) failure or risk of failure.
[2017-12-30 17:47] LABS: ANION GAP 20 MMOL/L (8-16); BLOOD UREA NITROGEN 12 mg/dL (7-18); CALCIUM 8.4 mg/dL (8.5-10.1); CHLORIDE 108 mmol/L (98-107); CO2 12 mmol/L (21-32); CREATININE 0.9 mg/dL (0.55-1.3); GLUCOSE,RANDOM 262 mg/dL (74-106); POTASSIUM 4.4 mmol/L (3.5-5.1); SODIUM 140 mmol/L (136-145)
[2017-12-30] MEDS ORDERED: PT OWN MED DRAWER 7, Y5N ONE ×3 (18:16→20:19)
[2017-12-30] MEDS: VANCOMYCIN 750 MG in DEXTROSE 5%-WATER - 250 ML IVPB SCH (18:22)
[2017-12-30] MEDS ORDERED: HEMOQUE TEST 1 EACH EACH ONE (18:57)
[2017-12-30] MEDS ORDERED: DEXTROSE 5%-0.45% SALINE 1,000 ML IV SCH (22:30)
[2017-12-30] MEDS: MUPIROCIN 2% TOPICAL OINTMENT FOR DECOLONIZATION NS SCH (22:33)
[2017-12-30] MEDS: PRIMIDONE 250 MG TABLET PO SCH (22:33)
[2017-12-30] MEDS: CHLORHEXIDINE GLUCONATE 4% CLEANSER FOR DECOLONIZATION TP SCH (22:34)
[2017-12-30 23:04] LABS: CREATININE 0.9 mg/dL (0.55-1.3)
[2017-12-30] MEDS ORDERED: INSULIN REGULAR HUMAN 100 UNITS/ML *VIAL IVPUSH ONE (23:04)
[2017-12-30 23:17] LABS: ANION GAP 13 MMOL/L (8-16); BLOOD UREA NITROGEN 12 mg/dL (7-18); CALCIUM 7.8 mg/dL (8.5-10.1); CHLORIDE 111 mmol/L (98-107); CO2 17 mmol/L (21-32); GLUCOSE,RANDOM 122 mg/dL (74-106); POTASSIUM 4.3 mmol/L (3.5-5.1); SODIUM 141 mmol/L (136-145)
[2017-12-31] MEDS ORDERED: PIPERACILLIN/TAZOBACTAM 3.375 GM VIAL IVPB ONE ×2 (00:04→09:29)
[2017-12-31] MEDS ORDERED: DEXTROSE 5%-WATER - 50 ML IVPB ONE ×2 (00:04→09:29)
[2017-12-31 00:41] LABS: ANION GAP 10 MMOL/L (8-16); BLOOD UREA NITROGEN 11 mg/dL (7-18); CALCIUM 7.7 mg/dL (8.5-10.1); CHLORIDE 111 mmol/L (98-107); CO2 21 mmol/L (21-32); CREATININE 0.9 mg/dL (0.55-1.3); GLUCOSE,RANDOM 126 mg/dL (74-106); POTASSIUM 4.2 mmol/L (3.5-5.1); SODIUM 141 mmol/L (136-145)
[2017-12-31] MEDS: INSULIN (LEVEMIR) 100 UNITS/ML UNITS SQ SCH ×3 (00:56→21:26)
[2017-12-31] MEDS: PIPERACILLIN/TAZOB 3.375 GM 3.375 GM in DEXTROSE 5%-WATER - 50 ML IVPB SCH ×2 (01:49→09:33)
[2017-12-31] MEDS: VANCOMYCIN 750 MG in DEXTROSE 5%-WATER - 250 ML IVPB SCH ×2 (05:42→17:25)
[2017-12-31] MEDS: HEPARIN NA (PORCINE) 5,000 UNITS/ML 1ML VIAL SQ SCH ×3 (05:43→21:32)
[2017-12-31 07:06] LABS: ALK PHOS 102 U/L (45-117); ANION GAP 8 MMOL/L (8-16); BILIRUBIN,TOTAL 0.2 mg/dL (0.2-1); BLOOD UREA NITROGEN 9 mg/dL (7-18); CALCIUM 7.5 mg/dL (8.5-10.1); CHLORIDE 110 mmol/L (98-107); CO2 20 mmol/L (21-32); CREATININE 0.7 mg/dL (0.55-1.3); GLUCOSE,RANDOM 94 mg/dL (74-106); MAGNESIUM 1.8 mg/dL (1.8-2.4); PHOSPHOROUS 1.7 mg/dL (2.5-4.9); POTASSIUM 4.1 mmol/L (3.5-5.1); SGOT/AST 23 U/L (15-37); SGPT/ALT 8 U/L (13-61); SODIUM 138 mmol/L (136-145)
[2017-12-31 08:13] LABS: BASO % 0.2 % (0-2.0); EOS % 0.3 % (0-4.5); HEMATOCRIT 27.3 % (32.4-45.2); HEMOGLOBIN 8.9 GM/dL (10.7-15.3); LYMPH % 8.6 % (8-40); MCH 31.5 pg (25.7-33.7); MCHC 32.6 g/dl (32.0-36.0); MEAN CELL VOLUME 96.8 fl (80-96); MEAN PLT VOLUME 8.4 fl (7.5-11.1); MONO % 7.7 % (3.8-10.2); NEUT % 83.2 % (42.8-82.8); PLATELET COUNT 350 K/MM3 (134-434); RBC 2.82 M/mm3 (3.60-5.2); RDW 14.5 % (11.6-15.6); WHITE BLOOD COUNT 13.7 K/mm3 (4.0-10.0)
[2017-12-31] MEDS ORDERED: MAGNESIUM 2GM/50ML STERILE WATER IVPB IVPB ONE (08:45)
[2017-12-31] MEDS ORDERED: POTASSIUM PHOSPHATE 21 MM in SODIUM CHLORIDE 250 ML IVPB ONE (09:00)
[2017-12-31] MEDS: ASPIRIN 81 MG CHEWABLE TABLETS PO SCH (09:33)
[2017-12-31] MEDS: PRIMIDONE 250 MG TABLET PO SCH ×4 (09:33→21:25)
[2017-12-31] MEDS: CLOPIDOGREL BISULFATE 75 MG TABLET (FP) PO SCH (09:33)
[2017-12-31] MEDS: MUPIROCIN 2% TOPICAL OINTMENT FOR DECOLONIZATION NS SCH ×2 (09:34→21:15)
--- NOTE | 2017-12-31 09:41 | PN ---
Progress Note, Physician Chief Complaint: Pt A&O; no chest pain or dyspnea. History of Present Illness: 57-year-old white female with history of insulin-dependent diabetes, paraplegia , CAD with 3VD-->multiple stents, chronic wound to the left tyler brought in by ambulance for hyperglycemia with home fingerstick greater than 400.Patient was seen earlier in week by MD and was sent home on Keflex for localized tyler chronic wound. There is no increased redness at the site and no fever was reported at home. patient was send home on cephalexin . Patient denies any fevers/chills reports not being able to eat yesterday. Denies nausea, vomiting, abdominal pain, chest pain,. - Current Medication List Current Medications: Active Medications Aspirin (Asa -) 81 mg PO DAILY [facility] Last Admin: 12/31/17 09:33 Dose: 81 mg Chlorhexidine Gluconate (Hibiclens For Decolonization -) 1 applic TP HS [facility] Last Admin: 12/30/17 22:34 Dose: 1 applic Clopidogrel Bisulfate (Plavix -) 75 mg PO DAILY [facility] Last Admin: 12/31/17 09:33 Dose: 75 mg Heparin Sodium (Porcine) (Heparin -) 5,000 unit SQ TID [facility] Last Admin: 12/31/17 05:43 Dose: 5,000 unit Vancomycin HCl 750 mg/ (Dextrose) 250 mls @ 150 mls/hr IVPB BID@0600,1800 [facility]; Protocol Last Admin: 12/31/17 05:42 Dose: 150 mls/hr Piperacillin Sod/Tazobactam (Sod 3.375 gm/ Dextrose) 50 mls @ 100 mls/hr IVPB Q8H-IV [facility]; Protocol Last Admin: 12/31/17 09:33 Dose: 100 mls/hr Potassium Phosphate 21 mm/ (Sodium Chloride) 257 mls @ 51.4 mls/hr IVPB ONCE ONE Stop: 12/31/17 13:59 Last Admin: 12/31/17 09:33 Dose: 51.4 mls/hr Insulin Detemir (Levemir Vial) 10 units SQ BID@0700,2200 [facility] Last Admin: 12/31/17 00:56 Dose: 10 units Mupirocin (Bactroban Ointment (For Decolonization) -) 1 applic NS BID [facility] Stop: 01/04/18 21:59 Last Admin: 10/18/18 09:34 Dose: 1 applic Primidone (Mysoline -) 500 mg PO BID [facility] Last Admin: 12/30/17 22:33 Dose: 500 mg - Objective Vital Signs: Vital Signs Temperature 97.8 F 12/31/17 02:00 Pulse Rate 88 12/31/17 08:00 Respiratory Rate 18 12/31/17 08:00 Blood Pressure 150/45 L 12/31/17 08:00 O2 Sat by Pulse Oximetry (%) 100 12/30/17 19:51 Constitutional: Yes: Anxious, Thin Eyes: Yes: WNL HENT: Yes: WNL Neck: Yes: WNL Cardiovascular: Yes: S1, S2 Respiratory: Yes: Regular Gastrointestinal: Yes: Soft ...Rectal Exam: Yes: Deferred Genitourinary: No: Anuria Breast(s): Yes: WNL Musculoskeletal: Yes: Muscle Weakness Extremities: Yes: Cool Edema: No Peripheral Pulses WNL: Yes Integumentary: Yes: WNL Neurological: Yes: Alert, Oriented, Weakness Psychiatric: Yes: Other Labs: CBC, BMP 12/31/17 05:30 12/31/17 05:30 INR, PTT INR 1.16 (0.83-1.09) H 12/30/17 05:05 Problem List - Problems (1) DKA (diabetic ketoacidoses) Assessment/Plan: On insulin, fluids. Keep Mg 2-2.4, PO4 2.5-4.9, and K 4-4.5. Consider ACEI or ARB (e.g. losartan 25 mg daily) if BP allows; pt has normal creatine clearance, low K, and agent would aid in renal protection with DM. Code(s): E13.10 - OTH DIABETES MELLITUS WITH KETOACIDOSIS WITHOUT COMA Qualifiers: Diabetes mellitus type: type 1 Diabetes mellitus complication detail: without coma Qualified Code(s): E10.10 - Type 1 diabetes mellitus with ketoacidosis without coma (2) Lactic acidosis Code(s): E87.2 - ACIDOSIS (3) Leg ulcer, left Code(s): L97.929 - NON-PRS CHRONIC ULC UNSP PRT OF L LOW LEG W UNSP SEVERITY (4) Wound infection complicating hardware Code(s): T84.7XXA - INFECT/INFLM REACT DUE TO OTH INT ORTH PROSTH DEV/GRFT, INIT Qualifiers: Encounter type: initial encounter Qualified Code(s): T84.7XXA - Infection and inflammatory reaction due to other internal orthopedic prosthetic devices, implants and grafts, initial encounter (5) Closed left hip fracture Code(s): S72.002A - FRACTURE OF UNSP PART OF NECK OF LEFT FEMUR, INIT (6) CAD (coronary artery disease) Assessment/Plan: Hx 3VD-->coronary stents (pt says she had an AK and CABG, but neither is apparently true). Code(s): I25.10 - ATHSCL HEART DISEASE OF [place] CORONARY ARTERY W/O ANG PCTRS (7) Depression Code(s): F32.9 - MAJOR DEPRESSIVE DISORDER, SINGLE EPISODE, UNSPECIFIED
[2017-12-31] MEDS ORDERED: LOSARTAN POTASSIUM 50 MG TABLET (FP) PO SCH (10:00)
--- NOTE | 2017-12-31 10:55 | CON.ORTH ---
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: Seizure, Other (Essential tremor) Cardio/Vascular: Yes: CAD (with stents), [place] Pulmonary: Yes: COPD Endocrine: Yes: Diabetes Mellitus (since age 3), Other (DKA, Hypoglicemia) Dermatology: Yes: Other (sacral ulcer) Additional Medical History: neuropathy, tremors - Past Surgical History Past Surgical History: Yes: CABG (3 stents) Additional Surgical History: left tib /fib fracture 2016 s/p orif ([facility]SS) - Alcohol/Substance Use Hx Alcohol Use: No History of Substance Use: reports: Marijuana - Smoking History Smoking history: Former smoker Have you smoked in the past 12 months: No Aproximately how many cigarettes per day: 4 If you are a former smoker, when did you quit?: 2014 - Social History Usual Living Arrangement: With Child ADL: Independent History of Recent Travel: No Home Medications - Allergies Allergies/Adverse Reactions: Allergies Allergy/AdvReac Type Severity Reaction Status Date / Time No Known Drug Allergies Allergy Verified 12/30/17 02:22 - Home Medications Home Medications: Ambulatory Orders Aspirin 81 mg PO DAILY 03/12/17 Clopidogrel Bisulfate [Plavix] 75 mg PO DAILY 03/12/17 Lisinopril [Zestril] 2.5 mg PO DAILY 03/12/17 Primidone [Mysoline] 2 tab PO BID 03/12/17 Insulin Aspart [Novolog Flexpen] 0 - 10 unit SQ ACHS 30 Days #2 insuln.pen MDD 4 11/25/17 Insulin Detemir [Levemir Flextouch] 5 unit SQ HS #1 insuln.pen MDD 1 11/25/17 Family Disease History - Family Disease History Family Disease History: Heart Disease: Mother, Respiratory: Sister (asthma), Other: Father (volvulus) Physical Exam for Ortho Vital Signs: Vital Signs Temperature 98.5 F 12/31/17 09:47 Pulse Rate 86 12/31/17 09:47 Respiratory Rate 18 12/31/17 09:47 Blood Pressure 150/45 L 12/31/17 08:00 O2 Sat by Pulse Oximetry (%) 100 12/30/17 19:51 Labs: CBC, BMP 12/31/17 05:30 12/31/17 05:30 INR, PTT INR 1.16 (0.83-1.09) H 12/30/17 05:05 - Lower Extremity Knee: Yes: Left, Other (2 samll ulcerations over lateral incision, minimal drainage noted from ulcers, no pus, no erythema or streaking, nontender, ROM 0- 60 with no pain, nvi) Imaging - Results X-ray: Report Reviewed, Image Reviewed Assessment/Plan 57yo woman with a PMH of CAD s/p [place] (2004) s/p stent, asthma, COPD, tremor, hypothyroidism, L tib/fib fx s/p ORIF (2015), known left knee wound, and IDDM. Pt has had chronic wound. Pt currently denies any pain at that site. a/p s/p left tib ORIF at [facility] with chronic wound admitted for DKA f/u cultures IV abx as per ID Ulceration may also be from pressure of screw heads in plate would not recommend to remove hardware at this time If condition does not improve or worsens, pt will need to go back to her surgeon at [facility] for removal will follow d/w Dr. Oates
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
--- NOTE | 2017-12-31 11:19 | PN ---
Physical Exam: SUBJECTIVE/EVENTS: - Off insulin drip in evening - IVF stopped this morning - Bedside swallow w/o cough. Diet started OBJECTIVE: Vital Signs Period Temp Pulse Resp BP Sys/Chen Pulse Ox Last 24 Hr 97.4 F-98.5 F 81-98 18-22 85-150/41-72 100-100 General: Comfortable, tremulous HEENT: PERRL, EOMI, very dry mouth and lips Cards: RRR, no murmur appreciated Pulm: Comfortable on room air, clear to auscultation bilaterally Abd: Soft, nontender, nondistended Ext: No LE edema. 2x dime sized, round wounds on left lateral knee. No surrounding erythema or edema. Gauze covering saturated. Weak but moves all extremities. Limbs nontender to palpation. No gross deformity. Neuro: A&Ox3 (but gives contradictory information), CN grossly intact, Continuous tremors Psych: Mood appropriate to situation Laboratory Results - last 24 hr 12/30/17 12/30/17 12/30/17 03:02 09:05 09:56 WBC RBC Hgb Hct MCV MCH MCHC RDW Plt Count MPV Absolute Neuts (auto) Neutrophils % Lymphocytes % Monocytes % Eosinophils % Basophils % Nucleated RBC % Sodium Potassium Chloride Carbon Dioxide Anion Gap BUN Creatinine Creat Clearance w eGFR POC Glucometer > 400 > 400 Random Glucose Hemoglobin A1c % Serum Osmolality 319 H Lactic Acid Calcium Phosphorus Magnesium Total Bilirubin AST ALT Alkaline Phosphatase C-Reactive Protein Total Protein Albumin 12/30/17 12/30/17 12/30/17 10:14 12:30 14:02 WBC RBC Hgb Hct MCV MCH MCHC RDW Plt Count MPV Absolute Neuts (auto) Neutrophils % Lymphocytes % Monocytes % Eosinophils % Basophils % Nucleated RBC % Sodium Potassium Chloride Carbon Dioxide Anion Gap BUN Creatinine Creat Clearance w eGFR POC Glucometer > 400 > [phone] Random Glucose Hemoglobin A1c % Serum Osmolality Lactic Acid Calcium Phosphorus Magnesium Total Bilirubin AST ALT Alkaline Phosphatase C-Reactive Protein Total Protein Albumin 12/30/17 12/30/17 12/30/17 15:54 16:00 17:43 WBC RBC Hgb Hct MCV MCH MCHC RDW Plt Count MPV Absolute Neuts (auto) Neutrophils % Lymphocytes % Monocytes % Eosinophils % Basophils % Nucleated RBC % Sodium 140 Potassium 4.4 Chloride 108 H Carbon Dioxide 12 L Anion Gap 20 H BUN 12 Creatinine 0.9 Creat Clearance w eGFR > 60 POC Glucometer 343.70485 299.06787 Random Glucose 262 H Hemoglobin A1c % Serum Osmolality Lactic Acid Calcium 8.4 L Phosphorus Magnesium Total Bilirubin AST ALT Alkaline Phosphatase C-Reactive Protein Total Protein Albumin 12/30/17 12/30/17 12/30/17 19:00 20:30 21:26 WBC RBC Hgb Hct MCV MCH MCHC RDW Plt Count MPV Absolute Neuts (auto) Neutrophils % Lymphocytes % Monocytes % Eosinophils % Basophils % Nucleated RBC % Sodium Potassium Chloride Carbon Dioxide Anion Gap BUN Creatinine Creat Clearance w eGFR POC Glucometer 231.00541 188.83861 160.86121 Random Glucose Hemoglobin A1c % Serum Osmolality Lactic Acid Calcium Phosphorus Magnesium Total Bilirubin AST ALT Alkaline Phosphatase C-Reactive Protein Total Protein Albumin 12/30/17 12/30/17 12/30/17 21:40 21:51 23:53 WBC RBC Hgb Hct MCV MCH MCHC RDW Plt Count MPV Absolute Neuts (auto) Neutrophils % Lymphocytes % Monocytes % Eosinophils % Basophils % Nucleated RBC % Sodium 141 Potassium 4.3 Chloride 111 H Carbon Dioxide 17 L Anion Gap 13 BUN 12 Creatinine 0.9 Creat Clearance w eGFR > 60 POC Glucometer 140.53899 159.63475 Random Glucose 122 H Hemoglobin A1c % Serum Osmolality Lactic Acid Calcium 7.8 L Phosphorus Magnesium Total Bilirubin AST ALT Alkaline Phosphatase C-Reactive Protein Total Protein Albumin 12/31/17 12/31/17 12/31/17 00:05 03:00 03:31 WBC RBC Hgb Hct MCV MCH MCHC RDW Plt Count MPV Absolute Neuts (auto) Neutrophils % Lymphocytes % Monocytes % Eosinophils % Basophils % Nucleated RBC % Sodium 141 Potassium 4.2 Chloride 111 H Carbon Dioxide 21 Anion Gap 10 BUN 11 Creatinine 0.9 Creat Clearance w eGFR > 60 POC Glucometer 82.39801 73.92235 Random Glucose 126 H Hemoglobin A1c % Serum Osmolality Lactic Acid Calcium 7.7 L Phosphorus Magnesium Total Bilirubin AST ALT Alkaline Phosphatase C-Reactive Protein Total Protein Albumin 12/31/17 12/31/17 12/31/17 05:30 05:30 05:30 WBC 13.7 H RBC 2.82 L Hgb 8.9 L Hct 27.3 L D MCV 96.8 H MCH 31.5 MCHC 32.6 RDW 14.5 Plt Count 350 D MPV 8.4 Absolute Neuts (auto) 11.4 H Neutrophils % 83.2 H Lymphocytes % 8.6 D Monocytes % 7.7 Eosinophils % 0.3 D Basophils % 0.2 Nucleated RBC % 0 Sodium 138 Potassium 4.1 Chloride 110 H Carbon Dioxide 20 L Anion Gap 8 BUN 9 Creatinine 0.7 Creat Clearance w eGFR > 60 POC Glucometer Random Glucose 94 Hemoglobin A1c % 9.5 H Serum Osmolality Lactic Acid Calcium 7.5 L Phosphorus 1.7 L Magnesium 1.8 Total Bilirubin 0.2 AST 23 ALT 8 L Alkaline Phosphatase 102 C-Reactive Protein 14.6 H Total Protein 5.0 L Albumin 2.0 L 12/31/17 12/31/17 12/31/17 05:30 05:30 10:09 WBC RBC Hgb Hct MCV MCH MCHC RDW Plt Count MPV Absolute Neuts (auto) Neutrophils % Lymphocytes % Monocytes % Eosinophils % Basophils % Nucleated RBC % Sodium Potassium Chloride Carbon Dioxide Anion Gap BUN Creatinine Creat Clearance w eGFR POC Glucometer 107.54010 164.40355 Random Glucose Hemoglobin A1c % Serum Osmolality Lactic Acid 0.9 Calcium Phosphorus Magnesium Total Bilirubin AST ALT Alkaline Phosphatase C-Reactive Protein Total Protein Albumin Active Medications Generic Name Dose Route Start Last Admin Trade Name Freq PRN Reason Stop Dose Admin Aspirin 81 mg 12/30/17 13:00 12/31/17 09:33 Asa - PO 81 mg DAILY TAYLA Administration Chlorhexidine Gluconate 1 applic 12/30/17 22:00 12/30/17 22:34 Hibiclens For Decolonization - TP 1 applic HS TAYLA Administration Clopidogrel Bisulfate 75 mg 12/30/17 13:00 12/31/17 09:33 Plavix - PO 75 mg DAILY TAYLA Administration Heparin Sodium (Porcine) 5,000 unit 12/30/17 14:00 12/31/17 05:43 Heparin - SQ 5,000 unit TID TAYLA Administration Vancomycin HCl 750 mg/ 250 mls @ 150 mls/hr 12/30/17 18:00 12/31/17 05:42 Dextrose IVPB 150 mls/hr BID@0600,1800 TAYLA Administration Protocol Piperacillin Sod/Tazobactam 50 mls @ 100 mls/hr 12/30/17 14:35 12/31/17 09:33 Sod 3.375 gm/ Dextrose IVPB 100 mls/hr Q8H-IV TAYLA Administration Protocol Potassium Phosphate 21 mm/ 257 mls @ 51.4 mls/hr 12/31/17 09:00 12/31/17 09: 33 Sodium Chloride IVPB 12/31/17 13:59 51.4 mls/hr ONCE ONE Administration Insulin Detemir 10 units 12/31/17 01:00 12/31/17 09:40 Levemir Vial SQ 10 units BID@0700,2200 TAYLA Administration Mupirocin 1 applic 12/30/17 22:00 12/31/17 09:34 Bactroban Ointment (For Decolonization) - NS 01/04/18 21:59 1 applic BID TAYLA Administration Non-Formulary Medication 2.5 mg 12/31/17 11:00 Lisinopril [Zestril] PO DAILY TAYLA Primidone 500 mg 12/30/17 13:00 12/31/17 09:40 Mysoline - PO 500 mg BID TAYLA Administration ASSESSMENT/PLAN: Radha Mendoza is a 57yo woman with a PMH of CAD, previous [place], asthma/COPD, tremor, hypothyroidism, IDDM who presented to the ED yesterday in DKA. She was admitted to the ICU for management. Today, her DKA has resolved and mental status improved. Ms Mendoza is ready for transfer to the floor today. Neuro: - Chronic tremor - Continue home primidone - Mental status improved; alert and conversational. CV: - Significant cardiac history - Echo completed, no significant abnormalities noted - Continue home ASA and plavix - Restart home lisinopril as mildly hypertensive this morning Pulm: - h/o COPD v asthma. No home meds known - Currently no issues. May add nebs if necessary - IS 10x per hour Heme: - Antiplatelet therapy with ASA/plavis - Monitor daily CBC GI: - Unofficial bedside swallow without coughing - Diabetic/low sodium diet started - Formal swallow eval pending Renal: - Monitor I/O ID: - Concern for infection of L knee wound. - Dr Plummer following - expressed purulent fluid from knee wound. May have infected LLE hardware - Seen by ortho - no acute intervention. Should follow up with surgeon at [facility] if hardware removal is warranted - Wound and blood cultures pending - Continue empiric antibiotics - vanc/zosyn Endo: - Presented in DKA, now resolved - Insulin drip discontinued. Started levemir 10 BID and ISS - Continue close glucose monitoring - family life educator consulted; per daughter Musc: - Stage 2 sacral ulcer, no sign of infection - Local wound care for sacral ulcer and left knee wounds - Turn and reposition Q2hr PPx: - SQH - No indication for GI ppx FEN: - Diabetic/low sodium diet - SLIV - Replete lytes PRN Dispo: - Transfer to med/surg Seen and discussed with Dr Licea. Christina Garcia PGy1 Visit type - Emergency Visit Emergency Visit: No - New Patient This patient is new to me today: No - Critical Care Critical Care patient: Yes Total Critical Care Time (in minutes): 45 Critical Care Statement: The care of this patient involved high complexity decision making to prevent further life threatening deterioration of the patient 's condition and/or to evaluate & treat vital organ system(s) failure or risk of failure.
[2017-12-31] MEDS ORDERED: LISINOPRIL 5 MG TABLET (FP) PO SCH (11:30)
--- NOTE | 2017-12-31 11:41 | PN ---
Teaching Attending Note Name of Resident: Christina Garcia ATTENDING PHYSICIAN STATEMENT I saw and evaluated the patient. I reviewed the resident's note and discussed the case with the resident. I agree with the resident's findings and plan as documented. SUBJECTIVE: Pt seen and examined in the ICU. Anion gap closed now off insulin gtt. Tolerating PO. No fevers or chills. OBJECTIVE: Vital Signs Period Temp Pulse Resp BP Sys/Chen Pulse Ox Last 24 Hr 97.4 F-98.5 F 81-98 18-22 85-150/41-72 100-100 Intake & Output 12/28/17 12/29/17 12/30/17 12/31/17 23:59 23:59 23:59 23:59 Intake Total 5250 1260 Output Total 0 Balance 5250 1260 Weight 49.9 kg 48.489 kg Gen: more alert, awake Heart: RRR Lung: decreased breath sounds at the bases Abd: soft, nontender Ext: no edema CBC, BMP 12/31/17 05:30 12/31/17 05:30 Active Medications Aspirin (Asa -) 81 mg PO DAILY [facility] Last Admin: 12/31/17 09:33 Dose: 81 mg Chlorhexidine Gluconate (Hibiclens For Decolonization -) 1 applic TP HS [facility] Last Admin: 12/30/17 22:34 Dose: 1 applic Clopidogrel Bisulfate (Plavix -) 75 mg PO DAILY [facility] Last Admin: 12/31/17 09:33 Dose: 75 mg Heparin Sodium (Porcine) (Heparin -) 5,000 unit SQ TID [facility] Last Admin: 12/31/17 05:43 Dose: 5,000 unit Vancomycin HCl 750 mg/ (Dextrose) 250 mls @ 150 mls/hr IVPB BID@0600,1800 [facility]; Protocol Last Admin: 12/31/17 05:42 Dose: 150 mls/hr Piperacillin Sod/Tazobactam (Sod 3.375 gm/ Dextrose) 50 mls @ 100 mls/hr IVPB Q8H-IV TAYLA; Protocol Last Admin: 12/31/17 09:33 Dose: 100 mls/hr Potassium Phosphate 21 mm/ (Sodium Chloride) 257 mls @ 51.4 mls/hr IVPB ONCE ONE Stop: 12/31/17 13:59 Last Admin: 12/31/17 09:33 Dose: 51.4 mls/hr Insulin Detemir (Levemir Vial) 10 units SQ BID@0700,2200 [facility] Last Admin: 12/31/17 09:40 Dose: 10 units Lisinopril (Prinivil) 2.5 mg PO DAILY [facility] Mupirocin (Bactroban Ointment (For Decolonization) -) 1 applic NS BID [facility] Stop: 01/04/18 21:59 Last Admin: 12/31/17 09:34 Dose: 1 applic Primidone (Mysoline -) 500 mg PO BID [facility] Last Admin: 12/31/17 09:40 Dose: 500 mg ASSESSMENT AND PLAN: Diabetic Ketoacidosis resolved Lactic Acidosis r/o Infected Hardware Sepsis CAD s/p CABG h/o TBI Paraplegia - glucose control - monitor lytes - continue antibiotics - f/u cultures - PO as tolerated - aspiration precautions - O2 to keep SpO2 >90% - DVT prophylaxis
[2017-12-31 12:56] VITALS: BMI 17.6
--- NOTE | 2017-12-31 13:49 | PN ---
Progress Note (short form) - Note Progress Note: reports left leg pain is improved continues to have copious serous drainage frorm the left leg Vital Signs Period Temp Pulse Resp BP Sys/Chen Pulse Ox Last 24 Hr 97.4 F-98.5 F 81-88 18-18 85-150/41-72 100-100 cor-rrr lungs clear abd soft,nt ext 2 small wounds LLE with serous drainage CBC, BMP 12/31/17 05:30 12/31/17 05:30 Microbiology 12/30/17 15:30 Leg - Left Lower Wound Culture - Preliminary Staphylococcus Latex Coag Pos 12/30/17 05:48 Abscess Gram Stain - Final 12/30/17 05:48 Abscess Wound Culture - Preliminary Staphylococcus Latex Coag Pos 12/30/17 05:05 Blood - Peripheral Venous Blood Culture - Preliminary NO GROWTH OBTAINED AFTER 24 HOURS, INCUBATION TO CONTINUE FOR 4 DAYS. 12/30/17 05:05 Blood - Peripheral Venous Blood Culture - Preliminary NO GROWTH OBTAINED AFTER 24 HOURS, INCUBATION TO CONTINUE FOR 4 DAYS. Laboratory Tests 12/31/17 05:30 C-Reactive Protein 14.6 H a/p DKA resolving suspected infected hardware- d/c zosyn, continue vancomycin pending culture results Problem List - Problems (1) DKA (diabetic ketoacidoses) Code(s): E13.10 - OTH DIABETES MELLITUS WITH KETOACIDOSIS WITHOUT COMA Qualifiers: Diabetes mellitus type: type 1 Diabetes mellitus complication detail: without coma Qualified Code(s): E10.10 - Type 1 diabetes mellitus with ketoacidosis without coma (2) Wound infection complicating hardware Code(s): T84.7XXA - INFECT/INFLM REACT DUE TO OTH INT ORTH PROSTH DEV/GRFT, INIT Qualifiers: Encounter type: initial encounter Qualified Code(s): T84.7XXA - Infection and inflammatory reaction due to other internal orthopedic prosthetic devices, implants and grafts, initial encounter
--- NOTE | 2017-12-31 14:13 | PN ---
Progress Note, Physician History of Present Illness: Pt is awake, alert, recognized me Pt w/o fever, chills, sore throat, nasal DC, CP, cg, SOB, abd pain, leg pain. Pt was seen and examined in ICU - Current Medication List Current Medications: Active Medications Aspirin (Asa -) 81 mg PO DAILY [facility] Last Admin: 12/31/17 09:33 Dose: 81 mg Chlorhexidine Gluconate (Hibiclens For Decolonization -) 1 applic TP HS [facility] Last Admin: 12/30/17 22:34 Dose: 1 applic Clopidogrel Bisulfate (Plavix -) 75 mg PO DAILY [facility] Last Admin: 12/31/17 09:33 Dose: 75 mg Heparin Sodium (Porcine) (Heparin -) 5,000 unit SQ TID [facility] Last Admin: 12/31/17 05:43 Dose: 5,000 unit Vancomycin HCl 750 mg/ (Dextrose) 250 mls @ 150 mls/hr IVPB BID@0600,1800 [facility]; Protocol Last Admin: 12/31/17 05:42 Dose: 150 mls/hr Insulin Detemir (Levemir Vial) 10 units SQ BID@0700,2200 [facility] Last Admin: 12/31/17 09:40 Dose: 10 units Lisinopril (Prinivil) 2.5 mg PO DAILY [facility] Last Admin: 12/31/17 11:45 Dose: 2.5 mg Mupirocin (Bactroban Ointment (For Decolonization) -) 1 applic NS BID [facility] Stop: 01/04/18 21:59 Last Admin: 12/31/17 09:34 Dose: 1 applic Primidone (Mysoline -) 500 mg PO BID [facility] Last Admin: 12/31/17 09:40 Dose: 500 mg - Objective Vital Signs: Vital Signs Temperature 98.3 F 12/31/17 13:29 Pulse Rate 84 12/31/17 13:29 Respiratory Rate 18 12/31/17 13:29 Blood Pressure 95/49 L 12/31/17 13:29 O2 Sat by Pulse Oximetry (%) 100 12/31/17 09:00 Constitutional: Yes: No Distress, Calm Cardiovascular: Yes: Regular Rate and Rhythm, S1, S2 Respiratory: Yes: Regular, Other (coarse BS at bases). No: Rales Gastrointestinal: Yes: Normal Bowel Sounds, Soft. No: Tenderness Edema: No Integumentary: Yes: Other (left leg wound with drainage) Neurological: Yes: Alert, Oriented Labs: CBC, BMP 12/31/17 05:30 12/31/17 05:30 INR, PTT INR 1.16 (0.83-1.09) H 12/30/17 05:05 Problem List - Problems (1) DKA (diabetic ketoacidoses) Assessment/Plan: off Insulin drip Code(s): E13.10 - OTH DIABETES MELLITUS WITH KETOACIDOSIS WITHOUT COMA Qualifiers: Diabetes mellitus type: type 1 Diabetes mellitus complication detail: without coma Qualified Code(s): E10.10 - Type 1 diabetes mellitus with ketoacidosis without coma (2) Lactic acidosis Assessment/Plan: resolved Code(s): E87.2 - ACIDOSIS (3) Diabetes mellitus Code(s): E11.9 - TYPE 2 DIABETES MELLITUS WITHOUT COMPLICATIONS (4) Hyperkalemia Code(s): E87.5 - HYPERKALEMIA (5) Hypokalemia Code(s): E87.6 - HYPOKALEMIA (6) CAD (coronary artery disease) Code(s): I25.10 - ATHSCL HEART DISEASE OF [place] CORONARY ARTERY W/O ANG PCTRS (7) COPD (chronic obstructive pulmonary disease) Code(s): J44.9 - CHRONIC OBSTRUCTIVE PULMONARY DISEASE, UNSPECIFIED (8) Leg ulcer, left Code(s): L97.929 - NON-PRS CHRONIC ULC UNSP PRT OF L LOW LEG W UNSP SEVERITY (9) Wound infection complicating hardware Code(s): T84.7XXA - INFECT/INFLM REACT DUE TO OTH INT ORTH PROSTH DEV/GRFT, INIT Qualifiers: Encounter type: initial encounter Qualified Code(s): T84.7XXA - Infection and inflammatory reaction due to other internal orthopedic prosthetic devices, implants and grafts, initial encounter (10) Dehydration Code(s): E86.0 - DEHYDRATION (11) Essential tremor Code(s): G25.0 - ESSENTIAL TREMOR (12) Diabetic gastroparesis Code(s): E11.43 - TYPE 2 DIABETES W DIABETIC AUTONOMIC (POLY)NEUROPATHY; K31.84 - GASTROPARESIS (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 Off Insulin drip Replete electolytes CCM, ID , Cardio consults are appreciated Endo, Ortho consults. IV abtx DVT proph GI proph PT eval Prognostic : improved AM labs Case was d/w pt's nurse Time spent fro managing pt's care: 40 minutes
[2017-12-31] MEDS: INSULIN (NOVOLOG) ASPART 100 UNITS/ML 10ML VIAL SQ SCH (17:24)
[2017-12-31] MEDS ORDERED: PT OWN MED DRAWER 7, Y5N ONE ×2 (17:25→20:36)
[2017-12-31] MEDS: INSULIN SLIDING SCALE (NOVOLOG) 1 VIAL SQ SCH ×2 (17:54→21:27)
[2017-12-31] MEDS: CHLORHEXIDINE GLUCONATE 4% CLEANSER FOR DECOLONIZATION TP SCH (21:29)
[2018-01-01] MEDS: VANCOMYCIN 750 MG in DEXTROSE 5%-WATER - 250 ML IVPB SCH ×2 (05:20→17:03)
[2018-01-01] MEDS: HEPARIN NA (PORCINE) 5,000 UNITS/ML 1ML VIAL SQ SCH ×3 (06:16→22:18)
[2018-01-01] MEDS: INSULIN (NOVOLOG) ASPART 100 UNITS/ML 10ML VIAL SQ SCH ×3 (06:52→17:01)
[2018-01-01 07:34] LABS: BASO % 0.4 % (0-2.0); EOS % 0.2 % (0-4.5); HEMATOCRIT 33.4 % (32.4-45.2); HEMOGLOBIN 10.9 GM/dL (10.7-15.3); MCH 31.7 pg (25.7-33.7); MCHC 32.6 g/dl (32.0-36.0); MEAN CELL VOLUME 97.3 fl (80-96); MEAN PLT VOLUME 7.8 fl (7.5-11.1); MONO % 3.4 % (3.8-10.2); PLATELET COUNT 336 K/MM3 (134-434); RBC 3.43 M/mm3 (3.60-5.2); RDW 14.2 % (11.6-15.6)
[2018-01-01 08:42] LABS: ANION GAP 8 MMOL/L (8-16); BLOOD UREA NITROGEN 6 mg/dL (7-18); CALCIUM 7.8 mg/dL (8.5-10.1); CHLORIDE 104 mmol/L (98-107); CO2 24 mmol/L (21-32); CREATININE 0.4 mg/dL (0.55-1.3); GLUCOSE,RANDOM 97 mg/dL (74-106); MAGNESIUM 2.2 mg/dL (1.8-2.4); PHOSPHOROUS 2.7 mg/dL (2.5-4.9); POTASSIUM 4.2 mmol/L (3.5-5.1); SODIUM 137 mmol/L (136-145)
--- NOTE | 2018-01-01 09:53 | PN ---
Progress Note (short form) - Note Progress Note: Ortho Pt seen and examined- Pt denies any pain in left knee Selected Entries 01/01/18 06:55 Temperature 97.4 F L Pulse Rate 88 Respiratory 18 Rate Blood Pressure 139/56 L Laboratory Tests 01/01/18 07:08 WBC 10.0 Hgb 10.9 Hct 33.4 D Plt Count 336 less drainage today, no pus, no erythema, good ROM nvi a/p Abx as per ID PT eval wbat dvt ppx orthopedically stable re-consult prn d/w Dr. Underwood
[2018-01-01] MEDS: INSULIN (LEVEMIR) 100 UNITS/ML UNITS SQ SCH ×2 (10:02→22:18)
[2018-01-01] MEDS: INSULIN SLIDING SCALE (NOVOLOG) 1 VIAL SQ SCH ×4 (10:05→22:18)
--- NOTE | 2018-01-01 10:49 | PN ---
Progress Note, Physician History of Present Illness: Pt w/o fever, CP, cg, SOB, abd pain, leg pain. - Current Medication List Current Medications: Active Medications Aspirin (Asa -) 81 mg PO DAILY [facility] Clopidogrel Bisulfate (Plavix -) 75 mg PO DAILY [facility] Heparin Sodium (Porcine) (Heparin -) 5,000 unit SQ TID [facility] Last Admin: 01/01/18 06:16 Dose: 5,000 unit Vancomycin HCl 750 mg/ (Dextrose) 250 mls @ 150 mls/hr IVPB BID@0600,1800 [facility]; Protocol Last Admin: 01/01/18 05:20 Dose: 150 mls/hr Insulin Aspart (Novolog Vial) 2 units SQ TIDAC [facility]; Protocol Last Admin: 01/01/18 06:52 Dose: Not Given Insulin Aspart (Novolog Vial Sliding Scale -) 1 vial SQ PCHS [facility]; Protocol Last Admin: 01/01/18 10:05 Dose: 3 units Insulin Detemir (Levemir Vial) 10 units SQ BID@0700,2200 [facility] Last Admin: 01/01/18 10:02 Dose: 10 units Lisinopril (Prinivil) 2.5 mg PO DAILY [facility] Primidone (Mysoline -) 500 mg PO BID [facility] - Objective Vital Signs: Vital Signs Temperature 98.5 F 01/01/18 10:00 Pulse Rate 85 01/01/18 10:00 Respiratory Rate 18 01/01/18 10:00 Blood Pressure 112/62 01/01/18 10:00 O2 Sat by Pulse Oximetry (%) 100 12/31/17 19:49 Constitutional: Yes: No Distress, Calm Cardiovascular: Yes: Regular Rate and Rhythm, S1, S2 Respiratory: Yes: Regular, CTA Bilaterally. No: Rales Gastrointestinal: Yes: Normal Bowel Sounds, Soft. No: Tenderness Edema: No Neurological: Yes: Alert, Oriented Labs: CBC, BMP 01/01/18 07:08 01/01/18 07:08 INR, PTT INR 1.16 (0.83-1.09) H 12/30/17 05:05 Problem List - Problems (1) DKA (diabetic ketoacidoses) Code(s): E13.10 - OTH DIABETES MELLITUS WITH KETOACIDOSIS WITHOUT COMA Qualifiers: Diabetes mellitus type: type 1 Diabetes mellitus complication detail: without coma Qualified Code(s): E10.10 - Type 1 diabetes mellitus with ketoacidosis without coma (2) Lactic acidosis Code(s): E87.2 - ACIDOSIS (3) Diabetes mellitus Code(s): E11.9 - TYPE 2 DIABETES MELLITUS WITHOUT COMPLICATIONS (4) Hyperkalemia Code(s): E87.5 - HYPERKALEMIA (5) Hypokalemia Code(s): E87.6 - HYPOKALEMIA (6) CAD (coronary artery disease) Code(s): I25.10 - ATHSCL HEART DISEASE OF [place] CORONARY ARTERY W/O ANG PCTRS (7) COPD (chronic obstructive pulmonary disease) Code(s): J44.9 - CHRONIC OBSTRUCTIVE PULMONARY DISEASE, UNSPECIFIED (8) Leg ulcer, left Code(s): L97.929 - NON-PRS CHRONIC ULC UNSP PRT OF L LOW LEG W UNSP SEVERITY (9) Wound infection complicating hardware Code(s): T84.7XXA - INFECT/INFLM REACT DUE TO OTH INT ORTH PROSTH DEV/GRFT, INIT Qualifiers: Encounter type: initial encounter Qualified Code(s): T84.7XXA - Infection and inflammatory reaction due to other internal orthopedic prosthetic devices, implants and grafts, initial encounter (10) Dehydration Code(s): E86.0 - DEHYDRATION (11) Essential tremor Code(s): G25.0 - ESSENTIAL TREMOR (12) Diabetic gastroparesis Code(s): E11.43 - TYPE 2 DIABETES W DIABETIC AUTONOMIC (POLY)NEUROPATHY; K31.84 - GASTROPARESIS (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 Off Insulin drip CCM, ID , Cardio, ortho consults are appreciated Endo consults. IV abtx -to f/u with ID DVT proph GI proph PT eval Prognostic : improved AM labs Case was d/w pt's nurse
[2018-01-01] MEDS ORDERED: PT OWN MED DRAWER 7, Y5N ONE ×2 (11:41→21:52)
[2018-01-01] MEDS: PRIMIDONE 250 MG TABLET PO SCH ×2 (11:49→22:58)
[2018-01-01] MEDS: ASPIRIN 81 MG CHEWABLE TABLETS PO SCH (11:49)
[2018-01-01] MEDS: LISINOPRIL 5 MG TABLET (FP) PO SCH (11:49)
[2018-01-01] MEDS: CLOPIDOGREL BISULFATE 75 MG TABLET (FP) PO SCH (11:50)
--- NOTE | 2018-01-01 12:26 | PN ---
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
--- NOTE | 2018-01-01 15:10 | PN ---
Progress Note, Physician Chief Complaint: Pt A&O; no complaints. History of Present Illness: 57-year-old white female with history of insulin-dependent diabetes, paraplegia , CAD with 3VD-->multiple stents, chronic wound to the left tyler brought in by ambulance for hyperglycemia with home fingerstick greater than 400.Patient was seen earlier in week by MD and was sent home on Keflex for localized tyler chronic wound. There is no increased redness at the site and no fever was reported at home. patient was send home on cephalexin . Patient denies any fevers/chills reports not being able to eat yesterday. Denies nausea, vomiting, abdominal pain, chest pain,. - Current Medication List Current Medications: Active Medications Aspirin (Asa -) 81 mg PO DAILY [facility] Last Admin: 01/01/18 11:49 Dose: 81 mg Clopidogrel Bisulfate (Plavix -) 75 mg PO DAILY [facility] Last Admin: 01/01/18 11:50 Dose: 75 mg Heparin Sodium (Porcine) (Heparin -) 5,000 unit SQ TID [facility] Last Admin: 01/01/18 06:16 Dose: 5,000 unit Vancomycin HCl 750 mg/ (Dextrose) 250 mls @ 150 mls/hr IVPB BID@0600,1800 [facility]; Protocol Last Admin: 01/01/18 05:20 Dose: 150 mls/hr Insulin Aspart (Novolog Vial) 2 units SQ TIDAC [facility]; Protocol Last Admin: 01/01/18 11:53 Dose: Not Given Insulin Aspart (Novolog Vial Sliding Scale -) 1 vial SQ [facility]; Protocol Last Admin: 01/01/18 10:05 Dose: 3 units Insulin Detemir (Levemir Vial) 10 units SQ BID@0700,2200 [facility] Last Admin: 01/01/18 10:02 Dose: 10 units Lisinopril (Prinivil) 2.5 mg PO DAILY [facility] Last Admin: 01/01/18 11:49 Dose: 2.5 mg Primidone (Mysoline -) 500 mg PO BID [facility] Last Admin: 01/01/18 11:49 Dose: 500 mg - Objective Vital Signs: Vital Signs Temperature 98.5 F 01/01/18 10:00 Pulse Rate 85 01/01/18 10:00 Respiratory Rate 18 01/01/18 10:00 Blood Pressure 112/62 01/01/18 10:00 O2 Sat by Pulse Oximetry (%) 100 12/31/17 19:49 Constitutional: Yes: Calm, Thin, Other (chronic ttremors (head)) Eyes: Yes: WNL HENT: Yes: WNL Neck: Yes: WNL Cardiovascular: Yes: Regular Rate and Rhythm, S1, S2 Respiratory: Yes: WNL Gastrointestinal: Yes: Soft ...Rectal Exam: Yes: Deferred Genitourinary: No: Anuria Breast(s): Yes: WNL Musculoskeletal: Yes: Muscle Weakness Extremities: Yes: WNL Edema: No Peripheral Pulses WNL: Yes Integumentary: Yes: WNL Neurological: Yes: Alert, Oriented, Tremors, Weakness Psychiatric: Yes: Alert, Oriented, Other Labs: CBC, BMP 01/01/18 07:08 01/01/18 07:08 INR, PTT INR 1.16 (0.83-1.09) H 12/30/17 05:05 Abnormal Lab Results 12/30/17 01/01/18 01/01/18 09:56 07:08 07:08 RBC 3.43 L MCV 97.3 H Absolute Neuts (auto) 8.2 H Monocytes % 3.4 L BUN 6 L Creatinine 0.4 L Calcium 7.8 L B-Hydroxybutyrate 133.00 H - ....Imaging EKG: Image Reviewed (NSR; nonspeicfic STT changes) Problem List - Problems (1) DKA (diabetic ketoacidoses) Assessment/Plan: On insulin, fluids; glucose better-controlled. Keep Mg 2-2.4, PO4 2.5-4.9, and K 4-4.5. Consider ACEI or ARB (e.g. losartan 25 mg daily) if BP allows; pt has normal creatine clearance, low K, and agent would aid in renal protection with DM. Code(s): E13.10 - OTH DIABETES MELLITUS WITH KETOACIDOSIS WITHOUT COMA Qualifiers: Diabetes mellitus type: type 1 Diabetes mellitus complication detail: without coma Qualified Code(s): E10.10 - Type 1 diabetes mellitus with ketoacidosis without coma (2) Lactic acidosis Assessment/Plan: on Vancomycin. Code(s): E87.2 - ACIDOSIS (3) Leg ulcer, left Assessment/Plan: f/u with vascular team. Code(s): L97.929 - NON-PRS CHRONIC ULC UNSP PRT OF L LOW LEG W UNSP SEVERITY (4) Wound infection complicating hardware Code(s): T84.7XXA - INFECT/INFLM REACT DUE TO OTH INT ORTH PROSTH DEV/GRFT, INIT Qualifiers: Encounter type: initial encounter Qualified Code(s): T84.7XXA - Infection and inflammatory reaction due to other internal orthopedic prosthetic devices, implants and grafts, initial encounter (5) Closed left hip fracture Code(s): S72.002A - FRACTURE OF UNSP PART OF NECK OF LEFT FEMUR, INIT (6) CAD (coronary artery disease) Assessment/Plan: Hx 3VD-->coronary stents (pt says she had an NH and CABG, but neither is apparently true). F/u lipid panel; aggressively lower LDL with statin, diet, exercise. Code(s): I25.10 - ATHSCL HEART DISEASE OF [place] CORONARY ARTERY W/O ANG PCTRS (7) Depression Code(s): F32.9 - MAJOR DEPRESSIVE DISORDER, SINGLE EPISODE, UNSPECIFIED (8) Diabetes mellitus Assessment/Plan: On PO meds and insulin. On lisinopril (HTN; DM; diastolic CHF). Code(s): E11.9 - TYPE 2 DIABETES MELLITUS WITHOUT COMPLICATIONS (9) Hyperlipidemia Assessment/Plan: LDL 149 mg/dL. Start atorvastatin 40 mg daily. LFTS presently WNL. Code(s): E78.5 - HYPERLIPIDEMIA, UNSPECIFIED
[2018-01-01 17:57] LABS: CHOLESTEROL 223 mg/dL (50-200); HDL CHOLESTEROL 38 mg/dL (40-60); TRIGLYCERIDES 123 mg/dL (0-150)
[2018-01-02] MEDS ORDERED: PT OWN MED DRAWER 7, Y5N ONE (05:45)
[2018-01-02] MEDS: VANCOMYCIN 750 MG in DEXTROSE 5%-WATER - 250 ML IVPB SCH (05:52)
[2018-01-02] MEDS: HEPARIN NA (PORCINE) 5,000 UNITS/ML 1ML VIAL SQ SCH ×3 (05:53→22:42)
[2018-01-02] MEDS: INSULIN (LEVEMIR) 100 UNITS/ML UNITS SQ SCH ×2 (06:05→22:40)
[2018-01-02] MEDS: INSULIN (NOVOLOG) ASPART 100 UNITS/ML 10ML VIAL SQ SCH ×2 (06:05→11:55)
[2018-01-02] MEDS ORDERED: DEXTROSE 50%-WATER 25 GM/50 ML DISP.SYRIN ONE ×2 (06:46→16:33)
[2018-01-02] MEDS ORDERED: DEXTROSE 50%-WATER 25 GM/50 ML DISP.SYRIN IVPUSH ONE (07:00)
[2018-01-02] MEDS ORDERED: INSULIN (NOVOLOG) ASPART 100 UNITS/ML 10ML VIAL ONE ×2 (08:58→21:31)
[2018-01-02] MEDS: INSULIN SLIDING SCALE (NOVOLOG) 1 VIAL SQ SCH ×3 (09:11→22:41)
[2018-01-02] MEDS: LISINOPRIL 5 MG TABLET (FP) PO SCH (09:13)
[2018-01-02] MEDS: CLOPIDOGREL BISULFATE 75 MG TABLET (FP) PO SCH (09:13)
[2018-01-02] MEDS: ASPIRIN 81 MG CHEWABLE TABLETS PO SCH (09:13)
[2018-01-02 09:17] LABS: HEMATOCRIT 31.4 % (32.4-45.2); HEMOGLOBIN 10.2 GM/dL (10.7-15.3); MCH 31.3 pg (25.7-33.7); MCHC 32.6 g/dl (32.0-36.0); MEAN CELL VOLUME 96.2 fl (80-96); MEAN PLT VOLUME 8.1 fl (7.5-11.1); PLATELET COUNT 295 K/MM3 (134-434); RBC 3.27 M/mm3 (3.60-5.2); RDW 13.9 % (11.6-15.6); WHITE BLOOD COUNT 7.6 K/mm3 (4.0-10.0)
[2018-01-02] MEDS: PRIMIDONE 250 MG TABLET PO SCH ×2 (09:23→22:43)
[2018-01-02 09:29] LABS: ANION GAP 8 MMOL/L (8-16); BLOOD UREA NITROGEN 7 mg/dL (7-18); CALCIUM 7.5 mg/dL (8.5-10.1); CHLORIDE 103 mmol/L (98-107); CO2 23 mmol/L (21-32); CREATININE 0.3 mg/dL (0.55-1.3); GLUCOSE,RANDOM 183 mg/dL (74-106); POTASSIUM 4.6 mmol/L (3.5-5.1); SODIUM 134 mmol/L (136-145)
--- NOTE | 2018-01-02 11:12 | CON.ENT ---
Consult Consult Specialty:: endocrine Reason for Consultation:: type 1 DM - History of Present Illness Chief Complaint: DKA History of Present Illness: type 1 DM age 3, very brittle, has been on many routines, now on levemir 10 hs plus avi 2 at ,eals, has CAD, retinopathy, neuropathy - History Source History Provided By: Patient, Medical Record Limitations to Obtaining History: Clinical Condition - Past Medical History [place]ER[employer]: Yes: Seizure, Other (Essential tremor) Cardio/Vascular: Yes: CAD (with stents), DC Pulmonary: Yes: COPD Endocrine: Yes: Diabetes Mellitus (since age 3), Other (DKA, Hypoglicemia) Dermatology: Yes: Other (sacral ulcer) Additional Medical History: neuropathy, tremors - Past Surgical History Past Surgical History: Yes: CABG (3 stents) Additional Surgical History: left tib /fib fracture 2016 s/p orif ([facility]) - Alcohol/Substance Use Hx Alcohol Use: No History of Substance Use: reports: Marijuana - Smoking History Smoking history: Former smoker Have you smoked in the past 12 months: No Aproximately how many cigarettes per day: 4 If you are a former smoker, when did you quit?: 2015 - Social History Usual Living Arrangement: With Child ADL: Independent History of Recent Travel: No Home Medications - Allergies Allergies/Adverse Reactions: Allergies Allergy/AdvReac Type Severity Reaction Status Date / Time No Known Drug Allergies Allergy Verified 12/30/17 02:22 - Home Medications Home Medications: Ambulatory Orders Aspirin 81 mg PO DAILY 03/12/17 Clopidogrel Bisulfate [Plavix] 75 mg PO DAILY 03/12/17 Lisinopril [Zestril] 2.5 mg PO DAILY 03/12/17 Primidone [Mysoline] 2 tab PO BID 03/12/17 Insulin Aspart [Novolog Flexpen] 0 - 10 unit SQ ACHS 30 Days #2 insuln.pen MDD 4 11/25/17 Insulin Detemir [Levemir Flextouch] 5 unit SQ HS #1 insuln.pen MDD 1 11/25/17 Family Disease History - Family Disease History Family Disease History: Heart Disease: Mother, Respiratory: Sister (asthma), Other: Father (volvulus) Review of Systems - Review of Systems Constitutional: reports: Weakness Eyes: reports: Other Neck: reports: No Symptoms Cardiovascular: reports: No Symptoms Respiratory: reports: Cough, SOB Gastrointestinal: reports: No Symptoms Genitourinary: reports: No Symptoms Physical Exam-ENT Vital Signs: Vital Signs Temperature 97.2 F L 01/02/18 09:00 Pulse Rate 92 H 01/02/18 09:00 Respiratory Rate 18 01/02/18 09:00 Blood Pressure 105/60 01/02/18 09:00 O2 Sat by Pulse Oximetry (%) 100 01/01/18 21:00 Constitutional: Yes: Thin Head: Yes: WNL Problem List - Problems (1) CAD (coronary artery disease) Code(s): I25.10 - ATHSCL HEART DISEASE OF [place] CORONARY ARTERY W/O ANG PCTRS (2) DKA (diabetic ketoacidoses) Assessment/Plan: very brittle, may need slight reduction levemir, doubt ability to self manage, same novolog Code(s): E13.10 - OTH DIABETES MELLITUS WITH KETOACIDOSIS WITHOUT COMA Qualifiers: Diabetes mellitus type: type 1 Diabetes mellitus complication detail: without coma Qualified Code(s): E10.10 - Type 1 diabetes mellitus with ketoacidosis without coma (3) Hyperglycemia Code(s): R73.9 - HYPERGLYCEMIA, UNSPECIFIED
--- NOTE | 2018-01-02 12:06 | PN ---
Progress Note (short form) - Note Progress Note: reports left leg pain is improved Vital Signs Period Temp Pulse Resp BP Sys/Chen Pulse Ox Last 24 Hr 97.2 F-99.9 F 68-92 18-18 92-111/50-74 100 +tremor cor-rrr lungs clear abd soft,nt ext - +pus on the drainage, +erythema CBC, BMP 01/02/18 08:50 01/02/18 08:50 Microbiology 12/30/17 05:05 Blood - Peripheral Venous Blood Culture - Preliminary NO GROWTH OBTAINED AFTER 72 HOURS, INCUBATION TO CONTINUE FOR 2 DAYS. 12/30/17 05:05 Blood - Peripheral Venous Blood Culture - Preliminary NO GROWTH OBTAINED AFTER 72 HOURS, INCUBATION TO CONTINUE FOR 2 DAYS. 12/30/17 15:30 Leg - Left Lower Gram Stain - Final 12/30/17 15:30 Leg - Left Lower Wound Culture - Preliminary Staphylococcus Aureus 12/30/17 05:48 Abscess Gram Stain - Final 12/30/17 05:48 Abscess Wound Culture - Preliminary Staphylococcus Aureus Laboratory Tests 12/31/17 05:30 C-Reactive Protein 14.6 H a/p DKA resolved suspected infected hardware-MSSA- switch to cefazolin consider MRI of the leg if hardware is compatible would contact ortho at [facility] d/w Dr Starr Problem List - Problems (1) DKA (diabetic ketoacidoses) Code(s): E13.10 - OTH DIABETES MELLITUS WITH KETOACIDOSIS WITHOUT COMA Qualifiers: Diabetes mellitus type: type 1 Diabetes mellitus complication detail: without coma Qualified Code(s): E10.10 - Type 1 diabetes mellitus with ketoacidosis without coma (2) Wound infection complicating hardware Code(s): T84.7XXA - INFECT/INFLM REACT DUE TO OTH INT ORTH PROSTH DEV/GRFT, INIT Qualifiers: Encounter type: initial encounter Qualified Code(s): T84.7XXA - Infection and inflammatory reaction due to other internal orthopedic prosthetic devices, implants and grafts, initial encounter
--- NOTE | 2018-01-02 12:08 | PN ---
Progress Note, Physician History of Present Illness: Pt w/o fever, CP, cg, SOB, abd pain, leg pain. Hypoglycemia event noticed, treated. - Current Medication List Current Medications: Active Medications Aspirin (Asa -) 81 mg PO DAILY [facility] Last Admin: 01/02/18 09:13 Dose: 81 mg Atorvastatin Calcium (Lipitor -) 40 mg PO HS [facility] 234 [facility]S [facility] Clopidogrel Bisulfate (Plavix -) 75 mg PO DAILY [facility] Last Admin: 01/02/18 09:13 Dose: 75 mg Heparin Sodium (Porcine) (Heparin -) 5,000 unit SQ TID [facility] Last Admin: 01/02/18 05:53 Dose: 5,000 unit Insulin Aspart (Novolog Vial) 2 units SQ TIDAC [facility]; Protocol Last Admin: 01/02/18 11:55 Dose: 2 units Insulin Aspart (Novolog Vial Sliding Scale -) 1 vial SQ PCHS [facility]; Protocol Last Admin: 01/02/18 09:11 Dose: 3 units Insulin Detemir (Levemir Vial) 10 units SQ BID@0700,2200 [facility] Last Admin: 01/02/18 06:05 Dose: Not Given Lisinopril (Prinivil) 2.5 mg PO DAILY [facility] Last Admin: 01/02/18 09:13 Dose: 2.5 mg Primidone (Mysoline -) 500 mg PO BID [facility] Last Admin: 01/02/18 09:23 Dose: 500 mg - Objective Vital Signs: Vital Signs Temperature 97.2 F L 01/02/18 09:00 Pulse Rate 92 H 01/02/18 09:00 Respiratory Rate 18 01/02/18 09:00 Blood Pressure 105/60 01/02/18 09:00 O2 Sat by Pulse Oximetry (%) 100 01/01/18 21:00 Constitutional: Yes: No Distress, Calm Cardiovascular: Yes: Regular Rate and Rhythm, S1, S2 Respiratory: Yes: Regular, CTA Bilaterally. No: Rales Gastrointestinal: Yes: Normal Bowel Sounds, Soft. No: Tenderness Edema: No Integumentary: Yes: Other (left knee with drainage) Labs: CBC, BMP 01/02/18 08:50 01/02/18 08:50 INR, PTT INR 1.16 (0.83-1.09) H 12/30/17 05:05 Problem List - Problems (1) DKA (diabetic ketoacidoses) Code(s): E13.10 - OTH DIABETES MELLITUS WITH KETOACIDOSIS WITHOUT COMA Qualifiers: Diabetes mellitus type: type 1 Diabetes mellitus complication detail: without coma Qualified Code(s): E10.10 - Type 1 diabetes mellitus with ketoacidosis without coma (2) Lactic acidosis Code(s): E87.2 - ACIDOSIS (3) Diabetes mellitus Code(s): E11.9 - TYPE 2 DIABETES MELLITUS WITHOUT COMPLICATIONS (4) Hyperkalemia Code(s): E87.5 - HYPERKALEMIA (5) Hypokalemia Code(s): E87.6 - HYPOKALEMIA (6) CAD (coronary artery disease) Code(s): I25.10 - ATHSCL HEART DISEASE OF [place] CORONARY ARTERY W/O ANG PCTRS (7) COPD (chronic obstructive pulmonary disease) Code(s): J44.9 - CHRONIC OBSTRUCTIVE PULMONARY DISEASE, UNSPECIFIED (8) Leg ulcer, left Code(s): L97.929 - NON-PRS CHRONIC ULC UNSP PRT OF L LOW LEG W UNSP SEVERITY (9) Wound infection complicating hardware Code(s): T84.7XXA - INFECT/INFLM REACT DUE TO OTH INT ORTH PROSTH DEV/GRFT, INIT Qualifiers: Encounter type: initial encounter Qualified Code(s): T84.7XXA - Infection and inflammatory reaction due to other internal orthopedic prosthetic devices, implants and grafts, initial encounter (10) Dehydration Code(s): E86.0 - DEHYDRATION (11) Essential tremor Code(s): G25.0 - ESSENTIAL TREMOR (12) Diabetic gastroparesis Code(s): E11.43 - TYPE 2 DIABETES W DIABETIC AUTONOMIC (POLY)NEUROPATHY; K31.84 - GASTROPARESIS (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 Off Insulin drip CCM, ID , Cardio, Ortho, Endo consults are appreciated. Case was d/w Dr. Plummer. I tried to get in touch with Ortho surgeon at [facility], Dr. Andino -per patient; [facility] told us to call on Thursday. Novolog SS was changed. DVT proph PT eval Prognostic : improved AM labs Case was d/w pt's nurse. Time spent for managing pt's care: over 40 minutes
[2018-01-02] MEDS ORDERED: CEFAZOLIN 2 GM in SODIUM CHLORIDE 100 ML IVPB SCH (12:30)
[2018-01-02] MEDS: CEFAZOLIN 2 GM in SODIUM CHLORIDE 100 ML IVPB SCH ×2 (14:15→17:38)
--- NOTE | 2018-01-02 18:06 | EKG ---
Test Reason : Blood Pressure : / mmHG Vent. Rate : 089 BPM Atrial Rate : 089 BPM P-R Int : 122 ms QRS Dur : 070 ms QT Int : 376 ms P-R-T Axes : 063 077 082 degrees QTc Int : 457 ms NORMAL SINUS RHYTHM CANNOT RULE OUT ANTERIOR INFARCT , AGE UNDETERMINED ABNORMAL ECG WHEN COMPARED WITH ECG OF 01-JAN-2018 10:01, PREVIOUS ECG HAS UNDETERMINED RHYTHM, NEEDS REVIEW Confirmed by GODWIN HUTCHINS, JIMMY ([id number]) on 01/02/2018 6:06:05 PM Referred By: Confirmed By:JIMMY CONNELLY MD
[2018-01-02] MEDS: ACETAMINOPHEN 325 MG TABLET (FP) PO PRN (19:45)
[2018-01-02] MEDS ORDERED: INSULIN (LEVEMIR) 100 UNITS/ML UNITS SQ ONE (21:31)
[2018-01-02] MEDS: ATORVASTATIN CA 40 MG TABLET (FP) PO SCH (22:42)
[2018-01-02] MEDS: SILVER SULFADIAZINE 1% TOP CREAM 50 GM JAR TP SCH (22:43)
[2018-01-03] MEDS ORDERED: PT OWN MED DRAWER 7, Y5N ONE ×2 (01:23→21:13)
[2018-01-03] MEDS: CEFAZOLIN 2 GM in SODIUM CHLORIDE 100 ML IVPB SCH ×3 (01:36→17:48)
[2018-01-03] MEDS: SILVER SULFADIAZINE 1% TOP CREAM 50 GM JAR TP SCH ×2 (06:25→14:54)
[2018-01-03] MEDS: HEPARIN NA (PORCINE) 5,000 UNITS/ML 1ML VIAL SQ SCH ×3 (06:34→22:59)
[2018-01-03] MEDS: INSULIN SLIDING SCALE (NOVOLOG) 1 VIAL SQ SCH ×4 (06:35→22:50)
[2018-01-03 07:25] LABS: HEMATOCRIT 30.9 % (32.4-45.2); MCH 31.3 pg (25.7-33.7); MCHC 32.2 g/dl (32.0-36.0); MEAN CELL VOLUME 97.1 fl (80-96); MEAN PLT VOLUME 8.3 fl (7.5-11.1); PLATELET COUNT 284 K/MM3 (134-434); RBC 3.19 M/mm3 (3.60-5.2); RDW 14.4 % (11.6-15.6); WHITE BLOOD COUNT 5.8 K/mm3 (4.0-10.0)
[2018-01-03 07:59] LABS: ANION GAP 7 MMOL/L (8-16); BLOOD UREA NITROGEN 8 mg/dL (7-18); CALCIUM 7.6 mg/dL (8.5-10.1); CHLORIDE 103 mmol/L (98-107); CO2 26 mmol/L (21-32); CREATININE 0.4 mg/dL (0.55-1.3); GLUCOSE,RANDOM 85 mg/dL (74-106); POTASSIUM 4.4 mmol/L (3.5-5.1); SODIUM 136 mmol/L (136-145)
--- NOTE | 2018-01-03 08:39 | PN ---
Progress Note, Physician Chief Complaint: in bed NAD borderline low BP hold zestril if SBP<100 pt said he BP is usually low at home, she is not symptomatic no other c/o chart consults reviewed - Current Medication List Current Medications: Active Medications Acetaminophen (Tylenol -) 650 mg PO Q6H PRN PRN Reason: PAIN 1-3 Last Admin: 01/02/18 19:45 Dose: 650 mg Aspirin (Asa -) 81 mg PO DAILY [facility] Last Admin: 01/02/18 09:13 Dose: 81 mg Atorvastatin Calcium (Lipitor -) 40 mg PO HS [facility] Last Admin: 01/02/18 22:42 Dose: 40 mg Clopidogrel Bisulfate (Plavix -) 75 mg PO DAILY [facility] Last Admin: 01/02/18 09:13 Dose: 75 mg Heparin Sodium (Porcine) (Heparin -) 5,000 unit SQ TID [facility] Last Admin: 01/03/18 06:34 Dose: 5,000 unit Cefazolin Sodium 2 gm/ Sodium (Chloride) 100 mls @ 200 mls/hr IVPB Q8H-IV [facility] Last Admin: 01/03/18 01:36 Dose: 200 mls/hr Insulin Aspart (Novolog Vial Sliding Scale -) 0 - 10 vial SQ ACHS [facility]; Protocol Last Admin: 01/03/18 06:35 Dose: Not Given Insulin Detemir (Levemir Vial) 10 units SQ BID@0700,2200 [facility] Last Admin: 01/02/18 22:40 Dose: 10 units Lisinopril (Prinivil) 2.5 mg PO DAILY [facility] Last Admin: 01/02/18 09:13 Dose: 2.5 mg Primidone (Mysoline -) 500 mg PO BID [facility] Last Admin: 01/02/18 22:43 Dose: 500 mg Silver Sulfadiazine (Silvadene -) 1 applic TP DAILY [facility] Last Admin: 01/03/18 06:25 Dose: Not Given - Objective Vital Signs: Vital Signs Temperature 98.4 F 01/03/18 06:00 Pulse Rate 79 01/03/18 06:00 Respiratory Rate 18 01/03/18 06:00 Blood Pressure 86/46 L 01/03/18 06:00 O2 Sat by Pulse Oximetry (%) 98 01/02/18 21:00 Constitutional: Yes: No Distress, Calm Eyes: Yes: Conjunctiva Clear HENT: Yes: Atraumatic Neck: Yes: Supple Cardiovascular: Yes: Regular Rate and Rhythm Respiratory: Yes: CTA Bilaterally Gastrointestinal: Yes: Soft. No: Distention Musculoskeletal: Yes: Other (L knee 2 small wounds) Extremities: No: Calf Tenderness, Cold, Cool, Cyanosis Edema: No Wound/Incision: Yes: Other (no drainage) Neurological: Yes: WNL, Alert, Oriented, Tremors ...Motor Strength: WNL Psychiatric: Yes: WNL, Alert, Oriented. No: Agitated Labs: CBC, BMP 01/03/18 06:00 01/03/18 06:00 INR, PTT INR 1.16 (0.83-1.09) H 12/30/17 05:05 - ....Imaging Other: Report Reviewed Assessment/Plan 57 YOF DM DKA tremors s/p L knee surgery hardware r/o infection IV antibiotics per ID ortho f/u GLU control continue previous meds DVT PFX falls decubs pfx d/w pt and staff
[2018-01-03] MEDS: INSULIN (LEVEMIR) 100 UNITS/ML UNITS SQ SCH ×2 (09:02→22:59)
[2018-01-03] MEDS: ASPIRIN 81 MG CHEWABLE TABLETS PO SCH (09:02)
[2018-01-03] MEDS: CLOPIDOGREL BISULFATE 75 MG TABLET (FP) PO SCH (09:02)
[2018-01-03] MEDS: LISINOPRIL 5 MG TABLET (FP) PO SCH ×2 (09:15→11:12)
[2018-01-03] MEDS: PRIMIDONE 250 MG TABLET PO SCH ×2 (14:52→23:02)
[2018-01-03] MEDS: ACETAMINOPHEN 325 MG TABLET (FP) PO PRN (22:58)
[2018-01-03] MEDS: ATORVASTATIN CA 40 MG TABLET (FP) PO SCH (22:58)
[2018-01-04] MEDS ORDERED: PT OWN MED DRAWER 7, Y5N ONE ×4 (01:20→22:38)
[2018-01-04] MEDS: CEFAZOLIN 2 GM in SODIUM CHLORIDE 100 ML IVPB SCH ×4 (02:18→21:18)
[2018-01-04] MEDS: HEPARIN NA (PORCINE) 5,000 UNITS/ML 1ML VIAL SQ SCH ×3 (06:30→23:16)
[2018-01-04] MEDS: INSULIN SLIDING SCALE (NOVOLOG) 1 VIAL SQ SCH ×4 (06:32→23:17)
[2018-01-04] MEDS: INSULIN (LEVEMIR) 100 UNITS/ML UNITS SQ SCH ×2 (06:32→23:15)
[2018-01-04] MEDS ORDERED: DEXTROSE 50%-WATER 25 GM/50 ML DISP.SYRIN ONE (06:33)
[2018-01-04 07:20] LABS: BASO % 0.6 % (0-2.0); EOS % 1.3 % (0-4.5); HEMATOCRIT 31.5 % (32.4-45.2); HEMOGLOBIN 10.2 GM/dL (10.7-15.3); LYMPH % 29.7 % (8-40); MCH 31.4 pg (25.7-33.7); MCHC 32.4 g/dl (32.0-36.0); MEAN CELL VOLUME 96.7 fl (80-96); MEAN PLT VOLUME 7.9 fl (7.5-11.1); MONO % 10.7 % (3.8-10.2); NEUT % 57.7 % (42.8-82.8); PLATELET COUNT 387 K/MM3 (134-434); RBC 3.25 M/mm3 (3.60-5.2); RDW 14.5 % (11.6-15.6); WHITE BLOOD COUNT 6.7 K/mm3 (4.0-10.0)
[2018-01-04] MEDS ORDERED: DEXTROSE 50%-WATER 25 GM/50 ML DISP.SYRIN IVPUSH ONE (08:30)
--- NOTE | 2018-01-04 08:51 | PN ---
Progress Note, Physician History of Present Illness: Pt seen and examined in the ICU. Briefly, 57yo female with h/o TBI with paraplegia, IDDM, CAD s/p CABG, sacral ulcers who was admitted with hyperglycemia on fingersticks. Found to be in DKA with anion gap 22. States compliance with insulin although pt poor historian. No fevers, chills. No cough or chest pain. +polyuria but without dysuria. PMH ASHD s/p 3 2005 HTN Hyperlipidemia IDDM - Current Medication List Current Medications: Active Medications Acetaminophen (Tylenol -) 650 mg PO Q6H PRN PRN Reason: PAIN 1-3 Last Admin: 01/03/18 22:58 Dose: 650 mg Aspirin (Asa -) 81 mg PO DAILY [facility] Last Admin: 01/03/18 09:02 Dose: 81 mg Atorvastatin Calcium (Lipitor -) 40 mg PO HS [facility] Last Admin: 01/03/18 22:58 Dose: 40 mg Clopidogrel Bisulfate (Plavix -) 75 mg PO DAILY [facility] Last Admin: 01/03/18 09:02 Dose: 75 mg Heparin Sodium (Porcine) (Heparin -) 5,000 unit SQ TID [facility] Last Admin: 01/04/18 06:30 Dose: 5,000 unit Cefazolin Sodium 2 gm/ Sodium (Chloride) 100 mls @ 200 mls/hr IVPB Q8H-IV [facility] Last Admin: 01/04/18 02:18 Dose: 200 mls/hr Insulin Aspart (Novolog Vial Sliding Scale -) 0 - 10 vial SQ ACHS [facility]; Protocol Last Admin: 01/04/18 06:32 Dose: Not Given Insulin Detemir (Levemir Vial) 10 units SQ BID@0700,2200 [facility] Last Admin: 01/04/18 06:32 Dose: Not Given Lisinopril (Prinivil) 2.5 mg PO DAILY [facility] Last Admin: 01/03/18 11:12 Dose: Not Given Primidone (Mysoline -) 500 mg PO BID [facility] Last Admin: 01/03/18 23:02 Dose: 500 mg Silver Sulfadiazine (Silvadene -) 1 applic TP DAILY [facility] Last Admin: 01/03/18 14:54 Dose: 1 applic - Objective Vital Signs: Vital Signs Temperature 97.6 F 01/04/18 06:29 Pulse Rate 74 01/04/18 06:29 Respiratory Rate 20 01/04/18 06:29 Blood Pressure 100/50 L 01/04/18 06:29 O2 Sat by Pulse Oximetry (%) 96 01/03/18 21:00 Eyes: Yes: WNL, Conjunctiva Clear, EOM Intact HENT: Yes: WNL, Atraumatic, Normocephalic Neck: Yes: WNL, Supple, Trachea Midline Cardiovascular: Yes: WNL, Regular Rate and Rhythm Respiratory: Yes: WNL, Regular, CTA Bilaterally Gastrointestinal: Yes: WNL, Normal Bowel Sounds Genitourinary: Yes: WNL Musculoskeletal: Yes: WNL Extremities: Yes: WNL Edema: No Integumentary: Yes: WNL Neurological: Yes: Alert, Oriented ...Motor Strength: WNL Psychiatric: Yes: WNL Labs: CBC, BMP 01/04/18 06:00 INR, PTT INR 1.16 (0.83-1.09) H 12/30/17 05:05 Problem List - Problems (1) DKA (diabetic ketoacidoses) Code(s): E13.10 - OTH DIABETES MELLITUS WITH KETOACIDOSIS WITHOUT COMA Qualifiers: Diabetes mellitus type: type 1 Diabetes mellitus complication detail: without coma Qualified Code(s): E10.10 - Type 1 diabetes mellitus with ketoacidosis without coma (2) Hyperglycemia Code(s): R73.9 - HYPERGLYCEMIA, UNSPECIFIED (3) Lactic acidosis Code(s): E87.2 - ACIDOSIS (4) Wound infection complicating hardware Code(s): T84.7XXA - INFECT/INFLM REACT DUE TO OTH INT ORTH PROSTH DEV/GRFT, INIT Qualifiers: Encounter type: initial encounter Qualified Code(s): T84.7XXA - Infection and inflammatory reaction due to other internal orthopedic prosthetic devices, implants and grafts, initial encounter (5) Anemia Code(s): D64.9 - ANEMIA, UNSPECIFIED (6) Asthma Code(s): J45.909 - UNSPECIFIED ASTHMA, UNCOMPLICATED (7) Closed left hip fracture Code(s): S72.002A - FRACTURE OF UNSP PART OF NECK OF LEFT FEMUR, INIT (8) Corneal abrasion, left Code(s): S05.02XA - INJ CONJUNCTIVA AND CORNEAL ABRASION W/O FB, LEFT EYE, INIT Qualifiers: Encounter type: initial encounter Qualified Code(s): S05.02XA - Injury of conjunctiva and corneal abrasion without foreign body, left eye, initial encounter (9) Dehydration Code(s): E86.0 - DEHYDRATION (10) Diabetes mellitus Code(s): E11.9 - TYPE 2 DIABETES MELLITUS WITHOUT COMPLICATIONS (11) Diabetic gastroparesis Code(s): E11.43 - TYPE 2 DIABETES W DIABETIC AUTONOMIC (POLY)NEUROPATHY; K31.84 - GASTROPARESIS (12) Diabetic hypoglycemia Code(s): E11.649 - TYPE 2 DIABETES MELLITUS WITH HYPOGLYCEMIA WITHOUT COMA (13) Diarrhea Code(s): R19.7 - DIARRHEA, UNSPECIFIED (14) Essential tremor Code(s): G25.0 - ESSENTIAL TREMOR (15) Facial contusion Code(s): S00.83XA - CONTUSION OF OTHER PART OF HEAD, INITIAL ENCOUNTER Qualifiers: Encounter type: initial encounter Qualified Code(s): S00.83XA - Contusion of other part of head, initial encounter (16) Fall Code(s): W19.XXXA - UNSPECIFIED FALL, INITIAL ENCOUNTER (17) Fever Code(s): R50.9 - FEVER, UNSPECIFIED (18) Finger pain, left Code(s): M79.645 - PAIN IN LEFT FINGER(S) (19) Fracture of left tibia and fibula Code(s): S82.202A - UNSP FRACTURE OF SHAFT OF LEFT TIBIA, INIT FOR CLOS FX; S82.402A - UNSP FRACTURE OF SHAFT OF LEFT FIBULA, INIT FOR CLOS FX Qualifiers: Encounter type: initial encounter Fracture type: closed Qualified Code(s) : S82.202A - Unspecified fracture of shaft of left tibia, initial encounter for closed fracture (20) History of ND (myocardial infarction) Code(s): I25.2 - OLD MYOCARDIAL INFARCTION (21) Hyperkalemia Code(s): E87.5 - HYPERKALEMIA (22) Hypoglycemia Code(s): E16.2 - HYPOGLYCEMIA, UNSPECIFIED (23) Hypoglycemia due to insulin Code(s): E16.0 - DRUG-INDUCED HYPOGLYCEMIA WITHOUT COMA; T38.3X5A - ADVERSE EFFECT OF INSULIN AND ORAL HYPOGLYCEMIC DRUGS, INIT (24) Hypokalemia Code(s): E87.6 - HYPOKALEMIA (25) Hypomagnesemia Code(s): E83.42 - HYPOMAGNESEMIA (26) Hypophosphatasia Code(s): E83.39 - OTHER DISORDERS OF PHOSPHORUS METABOLISM (27) Hypoproteinemia Code(s): E77.8 - OTHER DISORDERS OF GLYCOPROTEIN METABOLISM (28) Hypothermia Code(s): T68.XXXA - HYPOTHERMIA, INITIAL ENCOUNTER (29) Hypothyroid Code(s): E03.9 - HYPOTHYROIDISM, UNSPECIFIED (30) IDDM (insulin dependent diabetes mellitus) Code(s): E11.9 - TYPE 2 DIABETES MELLITUS WITHOUT COMPLICATIONS; Z79.4 - [facility]CI (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 OF INSULIN (31) Lethargy Code(s): R53.83 - OTHER FATIGUE (32) Leukocytosis Code(s): D72.829 - ELEVATED WHITE BLOOD CELL COUNT, UNSPECIFIED (33) Malnutrition Code(s): E46 - UNSPECIFIED PROTEIN-CALORIE MALNUTRITION (34) Nausea and vomiting Code(s): R11.2 - NAUSEA WITH VOMITING, UNSPECIFIED (35) Proximal humerus fracture Code(s): S42.209A - UNSP FRACTURE OF UPPER END OF UNSP HUMERUS, INIT FOR CLOS FX (36) Seizure Code(s): R56.9 - UNSPECIFIED CONVULSIONS (37) Shoulder pain, acute Code(s): M25.519 - PAIN IN UNSPECIFIED SHOULDER (38) Systemic inflammatory response syndrome (SIRS) Code(s): R65.10 - SIRS OF NON-INFECTIOUS ORIGIN W/O ACUTE ORGAN DYSFUNCTION (39) UTI (urinary tract infection) Code(s): N39.0 - URINARY TRACT INFECTION, SITE NOT SPECIFIED Qualifiers: Urinary tract infection type: acute cystitis Hematuria presence: with hematuria Qualified Code(s): N30.01 - Acute cystitis with hematuria (40) Unable to ambulate Code(s): R26.2 - DIFFICULTY IN WALKING, NOT ELSEWHERE CLASSIFIED (41) Urinary retention Code(s): R33.9 - RETENTION OF URINE, UNSPECIFIED (42) Weakness Code(s): R53.1 - WEAKNESS (43) CAD (coronary artery disease) Code(s): I25.10 - ATHSCL HEART DISEASE OF [place] CORONARY ARTERY W/O ANG PCTRS (44) COPD (chronic obstructive pulmonary disease) Code(s): J44.9 - CHRONIC OBSTRUCTIVE PULMONARY DISEASE, UNSPECIFIED (45) Diabetic autonomic neuropathy associated with diabetes mellitus due to underlying condition Code(s): E08.43 - DIAB DUE TO UNDRL COND W DIABETIC AUTONM (POLY)NEUROPATHY (46) Humeral head fracture Code(s): S42.293A - OTH DISP FX OF UPPER END OF UNSP HUMERUS, INIT FOR CLOS FX (47) Knee fracture, left Code(s): TEE3464 - (48) Smoker Code(s): F17.200 - NICOTINE DEPENDENCE, UNSPECIFIED, UNCOMPLICATED Assessment/Plan - Problems (1) DKA (diabetic ketoacidoses) Assessment/Plan: On insulin, fluids; glucose better-controlled. Keep Mg 2-2.4, PO4 2.5-4.9, and K 4-4.5. Consider ACEI or ARB (e.g. losartan 25 mg daily) if BP allows; pt has normal creatine clearance, low K, and agent would aid in renal protection with DM. Code(s): E13.10 - OTH DIABETES MELLITUS WITH KETOACIDOSIS WITHOUT COMA Qualifiers: Diabetes mellitus type: type 1 Diabetes mellitus complication detail: without coma Qualified Code(s): E10.10 - Type 1 diabetes mellitus with ketoacidosis without coma (2) Lactic acidosis Assessment/Plan: on Vancomycin. Code(s): E87.2 - ACIDOSIS (3) Leg ulcer, left Assessment/Plan: f/u with vascular team. Code(s): L97.929 - NON-PRS CHRONIC ULC UNSP PRT OF L LOW LEG W UNSP SEVERITY (4) Wound infection complicating hardware Code(s): T84.7XXA - INFECT/INFLM REACT DUE TO OTH INT ORTH PROSTH DEV/GRFT, INIT Qualifiers: Encounter type: initial encounter Qualified Code(s): T84.7XXA - Infection and inflammatory reaction due to other internal orthopedic prosthetic devices, implants and grafts, initial encounter (5) Closed left hip fracture Code(s): S72.002A - FRACTURE OF UNSP PART OF NECK OF LEFT FEMUR, INIT (6) CAD (coronary artery disease) Assessment/Plan: Hx 3VD-->coronary stents (pt says she had an ND and CABG, but neither is apparently true). F/u lipid panel; aggressively lower LDL with statin, diet, exercise. Code(s): I25.10 - ATHSCL HEART DISEASE OF [place] CORONARY ARTERY W/O ANG PCTRS (7) Depression Code(s): F32.9 - MAJOR DEPRESSIVE DISORDER, SINGLE EPISODE, UNSPECIFIED (8) Diabetes mellitus Assessment/Plan: On PO meds and insulin. On lisinopril (HTN; DM; diastolic CHF). Code(s): E11.9 - TYPE 2 DIABETES MELLITUS WITHOUT COMPLICATIONS (9) Hyperlipidemia Assessment/Plan: LDL 149 mg/dL. Start atorvastatin 40 mg daily. LFTS presently WNL. Code(s): E78.5 - HYPERLIPIDEMIA, UNSPECIFIED
[2018-01-04 08:52] LABS: ALK PHOS 106 U/L (45-117); ANION GAP 8 MMOL/L (8-16); BILIRUBIN,TOTAL 0.6 mg/dL (0.2-1); BLOOD UREA NITROGEN 9 mg/dL (7-18); CALCIUM 7.8 mg/dL (8.5-10.1); CHLORIDE 104 mmol/L (98-107); CO2 28 mmol/L (21-32); CREATININE 0.3 mg/dL (0.55-1.3); POTASSIUM 4.4 mmol/L (3.5-5.1); SGOT/AST 16 U/L (15-37); SGPT/ALT 8 U/L (13-61); SODIUM 140 mmol/L (136-145); TOT PROT 5.5 g/dl (6.4-8.2)
[2018-01-04 08:53] LABS: GLUCOSE,RANDOM 22 mg/dL (74-106)
--- NOTE | 2018-01-04 08:58 | PN ---
Progress Note (short form) - Note Progress Note: Ortho Pt seen and examined- No pain at this time Selected Entries 01/04/18 06:29 Temperature 97.6 F Pulse Rate 74 Respiratory 20 Rate Blood Pressure 100/50 L Laboratory Tests 01/04/18 06:00 WBC 6.7 Hgb 10.2 L Hct 31.5 L Plt Count 387 D 2 small ulcerations- not increasing in size,+ serous drainage, no pus, no erythema, good ROM nvi a/p Abx as per ID PT eval wbat dvt ppx orthopedically stable f/u with orthopedic at [facility] when stable re-consult prn d/w Иван
--- NOTE | 2018-01-04 09:47 | PN ---
Progress Note, Physician History of Present Illness: Pt w/o fever, CP, cg, SOB, abd pain, leg pain. Hypoglycemia event noticed, treated. Pt now having breakfast - Current Medication List Current Medications: Active Medications Acetaminophen (Tylenol -) 650 mg PO Q6H PRN PRN Reason: PAIN 1-3 Last Admin: 01/03/18 22:58 Dose: 650 mg Aspirin (Asa -) 81 mg PO DAILY [facility] Last Admin: 01/03/18 09:02 Dose: 81 mg Atorvastatin Calcium (Lipitor -) 40 mg PO HS [facility] Last Admin: 01/03/18 22:58 Dose: 40 mg Clopidogrel Bisulfate (Plavix -) 75 mg PO DAILY [facility] Last Admin: 01/03/18 09:02 Dose: 75 mg Heparin Sodium (Porcine) (Heparin -) 5,000 unit SQ TID [facility] Last Admin: 01/04/18 06:30 Dose: 5,000 unit Cefazolin Sodium 2 gm/ Sodium (Chloride) 100 mls @ 200 mls/hr IVPB Q8H-IV [facility] Last Admin: 01/04/18 02:18 Dose: 200 mls/hr Insulin Aspart (Novolog Vial Sliding Scale -) 0 - 10 vial SQ ACHS [facility]; Protocol Last Admin: 01/04/18 06:32 Dose: Not Given Insulin Detemir (Levemir Vial) 5 units SQ BID@0700,2200 [facility] Lisinopril (Prinivil) 2.5 mg PO DAILY [facility] Last Admin: 01/03/18 11:12 Dose: Not Given Primidone (Mysoline -) 500 mg PO BID [facility] Last Admin: 01/03/18 23:02 Dose: 500 mg Silver Sulfadiazine (Silvadene -) 1 applic TP DAILY [facility] Last Admin: 01/03/18 14:54 Dose: 1 applic - Objective Vital Signs: Vital Signs Temperature 97.6 F 01/04/18 06:29 Pulse Rate 74 01/04/18 06:29 Respiratory Rate 20 01/04/18 06:29 Blood Pressure 100/50 L 01/04/18 06:29 O2 Sat by Pulse Oximetry (%) 96 01/03/18 21:00 Constitutional: Yes: No Distress, Calm Cardiovascular: Yes: Regular Rate and Rhythm, S1, S2 Respiratory: Yes: Regular, CTA Bilaterally. No: Rales Gastrointestinal: Yes: Normal Bowel Sounds, Soft. No: Tenderness Extremities: Yes: Other (left knee discharge) Edema: No Neurological: Yes: Alert, Oriented Labs: CBC, BMP 01/04/18 06:00 01/04/18 06:00 INR, PTT INR 1.16 (0.83-1.09) H 12/30/17 05:05 Problem List - Problems (1) DKA (diabetic ketoacidoses) Code(s): E13.10 - OTH DIABETES MELLITUS WITH KETOACIDOSIS WITHOUT COMA Qualifiers: Diabetes mellitus type: type 1 Diabetes mellitus complication detail: without coma Qualified Code(s): E10.10 - Type 1 diabetes mellitus with ketoacidosis without coma (2) Lactic acidosis Code(s): E87.2 - ACIDOSIS (3) Diabetes mellitus Code(s): E11.9 - TYPE 2 DIABETES MELLITUS WITHOUT COMPLICATIONS (4) Hyperkalemia Code(s): E87.5 - HYPERKALEMIA (5) Hypokalemia Code(s): E87.6 - HYPOKALEMIA (6) CAD (coronary artery disease) Code(s): I25.10 - ATHSCL HEART DISEASE OF [place] CORONARY ARTERY W/O ANG PCTRS (7) COPD (chronic obstructive pulmonary disease) Code(s): J44.9 - CHRONIC OBSTRUCTIVE PULMONARY DISEASE, UNSPECIFIED (8) Leg ulcer, left Code(s): L97.929 - NON-PRS CHRONIC ULC UNSP PRT OF L LOW LEG W UNSP SEVERITY (9) Wound infection complicating hardware Code(s): T84.7XXA - INFECT/INFLM REACT DUE TO OTH INT ORTH PROSTH DEV/GRFT, INIT Qualifiers: Encounter type: initial encounter Qualified Code(s): T84.7XXA - Infection and inflammatory reaction due to other internal orthopedic prosthetic devices, implants and grafts, initial encounter (10) Dehydration Code(s): E86.0 - DEHYDRATION (11) Essential tremor Code(s): G25.0 - ESSENTIAL TREMOR (12) Diabetic gastroparesis Code(s): E11.43 - TYPE 2 DIABETES W DIABETIC AUTONOMIC (POLY)NEUROPATHY; K31.84 - GASTROPARESIS (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 Off Insulin drip CCM, ID , Cardio, Ortho, Endo consults are appreciated. I called Dr. Underwood office and obtained [facility] Ortho surgeon's name: Dr. Wellington. The [facility] was called and obtained Dr. Wellington's office phone #: [phone]. I called Dr. Wellington office and spoke with his police department secretary (he would be in OR for most part of the day) and have him paged ( my cell phone number was provided). Levemir dose was changed; to f/u BGM values. DVT proph PT eval Prognostic : improved AM labs Case was d/w pt's nurse. Time spent for managing pt's care: over 35 minutes
[2018-01-04] MEDS: ASPIRIN 81 MG CHEWABLE TABLETS PO SCH (10:47)
[2018-01-04] MEDS: CLOPIDOGREL BISULFATE 75 MG TABLET (FP) PO SCH (10:47)
[2018-01-04] MEDS: PRIMIDONE 250 MG TABLET PO SCH ×2 (10:52→23:16)
[2018-01-04] MEDS: LISINOPRIL 5 MG TABLET (FP) PO SCH ×2 (10:55→12:16)
[2018-01-04] MEDS ORDERED: INSULIN (NOVOLOG) ASPART 100 UNITS/ML 10ML VIAL ONE (11:43)
--- NOTE | 2018-01-04 16:07 | PN ---
Progress Note (short form) - Note Progress Note: reports left leg pain is improved Vital Signs Period Temp Pulse Resp BP Sys/Chen Pulse Ox Last 24 Hr 97.5 F-98.7 F 72-93 18-20 100-126/45-60 96 cor-rrr lungs clear abd soft,nt ext- still with drainage from the two pin sites LLE CBC, BMP 01/04/18 06:00 01/04/18 06:00 Microbiology 12/30/17 05:05 Blood - Peripheral Venous Blood Culture - Final NO GROWTH AFTER 5 DAYS INCUBATION 12/30/17 05:05 Blood - Peripheral Venous Blood Culture - Final NO GROWTH AFTER 5 DAYS INCUBATION 12/30/17 15:30 Leg - Left Lower Gram Stain - Final 12/30/17 15:30 Leg - Left Lower Wound Culture - Final Staphylococcus Aureus 12/30/17 05:48 Abscess Gram Stain - Final 12/30/17 05:48 Abscess Wound Culture - Final Staphylococcus Aureus Laboratory Tests 12/31/17 05:30 C-Reactive Protein 14.6 H a/p DKA resolved brittle DM suspected infected hardware-MSSA- switch to cefazolin d/w radiology, will get noncontrast ct scan of the LLE d/w Dr Starr- he is trying to speak the orthopaedist at [facility] continue cefazolin, repeat crp in am Problem List - Problems (1) DKA (diabetic ketoacidoses) Code(s): E13.10 - OTH DIABETES MELLITUS WITH KETOACIDOSIS WITHOUT COMA Qualifiers: Diabetes mellitus type: type 1 Diabetes mellitus complication detail: without coma Qualified Code(s): E10.10 - Type 1 diabetes mellitus with ketoacidosis without coma (2) Wound infection complicating hardware Code(s): T84.7XXA - INFECT/INFLM REACT DUE TO OTH INT ORTH PROSTH DEV/GRFT, INIT Qualifiers: Encounter type: initial encounter Qualified Code(s): T84.7XXA - Infection and inflammatory reaction due to other internal orthopedic prosthetic devices, implants and grafts, initial encounter
[2018-01-04] MEDS: SILVER SULFADIAZINE 1% TOP CREAM 50 GM JAR TP SCH (16:53)
[2018-01-04] MEDS: ATORVASTATIN CA 40 MG TABLET (FP) PO SCH (23:17)
[2018-01-04] MEDS: ACETAMINOPHEN 325 MG TABLET (FP) PO PRN (23:26)
[2018-01-05] MEDS: CEFAZOLIN 2 GM in SODIUM CHLORIDE 100 ML IVPB SCH ×3 (03:15→17:06)
[2018-01-05] MEDS: INSULIN SLIDING SCALE (NOVOLOG) 1 VIAL SQ SCH ×4 (06:44→21:56)
[2018-01-05] MEDS: HEPARIN NA (PORCINE) 5,000 UNITS/ML 1ML VIAL SQ SCH ×3 (06:45→21:55)
[2018-01-05] MEDS: INSULIN (LEVEMIR) 100 UNITS/ML UNITS SQ SCH ×2 (06:45→21:55)
[2018-01-05] MEDS: PRIMIDONE 250 MG TABLET PO SCH ×3 (07:10→21:56)
[2018-01-05 08:30] LABS: HEMATOCRIT 28.3 % (32.4-45.2); HEMOGLOBIN 9.1 GM/dL (10.7-15.3); MCH 31.1 pg (25.7-33.7); MCHC 32.2 g/dl (32.0-36.0); MEAN CELL VOLUME 96.7 fl (80-96); MEAN PLT VOLUME 8.1 fl (7.5-11.1); PLATELET COUNT 389 K/MM3 (134-434); RBC 2.93 M/mm3 (3.60-5.2); RDW 14.3 % (11.6-15.6); WHITE BLOOD COUNT 5.4 K/mm3 (4.0-10.0)
[2018-01-05 08:44] LABS: ANION GAP 6 MMOL/L (8-16); BLOOD UREA NITROGEN 14 mg/dL (7-18); CALCIUM 7.6 mg/dL (8.5-10.1); CHLORIDE 105 mmol/L (98-107); CO2 29 mmol/L (21-32); CREATININE 0.3 mg/dL (0.55-1.3); GLUCOSE,RANDOM 54 mg/dL (74-106); POTASSIUM 4.9 mmol/L (3.5-5.1); SODIUM 139 mmol/L (136-145)
[2018-01-05] MEDS ORDERED: PT OWN MED DRAWER 7, Y5N ONE ×2 (09:54→23:06)
[2018-01-05] MEDS: ASPIRIN 81 MG CHEWABLE TABLETS PO SCH (10:36)
[2018-01-05] MEDS: CLOPIDOGREL BISULFATE 75 MG TABLET (FP) PO SCH (10:36)
[2018-01-05] MEDS: LISINOPRIL 5 MG TABLET (FP) PO SCH (10:37)
--- NOTE | 2018-01-05 10:45 | PN ---
Progress Note, SYSTEM TECHNOLOGIST - Note Progress Note: Verbal. Tolerating diet well with good appetite. Selected Entries 01/04/18 01/04/18 01/05/18 10:50 21:00 06:00 Temperature 98.5 F O2 Sat by Pulse 97 97 Oximetry (%) 01/05/18 09:50 Temperature 97.9 F O2 Sat by Pulse Oximetry (%) Laboratory Tests 01/04/18 01/05/18 06:00 07:20 WBC 6.7 5.4 No further f/u indicated at this time.
--- NOTE | 2018-01-05 13:06 | PN ---
Progress Note, Physician Chief Complaint: Pt A&Ox3; lying in bed (says she had to retrun from sitting in the chair because she becomes nauseous when she sits up for too long). Now wants to eat becasue she is afarid her blood sugar will otherwise fall too low. History of Present Illness: 57-year-old white female with history of insulin-dependent diabetes, paraplegia , CAD with 3VD-->multiple stents, chronic wound to the left tyler brought in by ambulance for hyperglycemia with home fingerstick greater than 400.Patient was seen earlier in week by MD and was sent home on Keflex for localized tyler chronic wound. There is no increased redness at the site and no fever was reported at home. patient was send home on cephalexin . Patient denies any fevers/chills reports not being able to eat yesterday. Denies nausea, vomiting, abdominal pain, chest pain,. - Current Medication List Current Medications: Active Medications Acetaminophen (Tylenol -) 650 mg PO Q6H PRN PRN Reason: PAIN 1-3 Last Admin: 01/04/18 23:26 Dose: 650 mg Aspirin (Asa -) 81 mg PO DAILY [facility] Last Admin: 01/05/18 10:36 Dose: 81 mg Atorvastatin Calcium (Lipitor -) 40 mg PO HS [facility] Last Admin: 01/04/18 23:17 Dose: 40 mg Clopidogrel Bisulfate (Plavix -) 75 mg PO DAILY [facility] Last Admin: 01/05/18 10:36 Dose: 75 mg Heparin Sodium (Porcine) (Heparin -) 5,000 unit SQ TID [facility] Last Admin: 01/05/18 06:45 Dose: 5,000 unit Cefazolin Sodium 2 gm/ Sodium (Chloride) 100 mls @ 200 mls/hr IVPB Q8H-IV [facility] Last Admin: 01/05/18 12:29 Dose: 200 mls/hr Insulin Aspart (Novolog Vial Sliding Scale -) 0 - 10 vial SQ ACHS [facility]; Protocol Last Admin: 01/05/18 12:34 Dose: Not Given Insulin Detemir (Levemir Vial) 5 units SQ BID@0700,2200 [facility] Last Admin: 01/05/18 06:45 Dose: 5 units Lisinopril (Prinivil) 2.5 mg PO DAILY [facility] Last Admin: 01/05/18 10:37 Dose: 2.5 mg Primidone (Mysoline -) 500 mg PO BID [facility] Last Admin: 01/05/18 10:38 Dose: 500 mg Silver Sulfadiazine (Silvadene -) 1 applic TP DAILY [facility] Last Admin: 01/04/18 16:53 Dose: 1 applic - Objective Vital Signs: Vital Signs Temperature 97.9 F 01/05/18 09:50 Pulse Rate 79 01/05/18 09:50 Respiratory Rate 18 01/05/18 09:50 Blood Pressure 116/55 L 01/05/18 09:50 O2 Sat by Pulse Oximetry (%) 97 01/04/18 21:00 Constitutional: Yes: Calm Eyes: Yes: WNL HENT: Yes: WNL Neck: Yes: WNL Cardiovascular: Yes: Regular Rate and Rhythm Respiratory: Yes: WNL Gastrointestinal: Yes: Soft ...Rectal Exam: Yes: Deferred Genitourinary: No: Anuria Musculoskeletal: Yes: Muscle Weakness Extremities: Yes: Cool Edema: No Peripheral Pulses WNL: Yes Integumentary: Yes: WNL Neurological: Yes: Alert, Oriented, Weakness Psychiatric: Yes: Other Labs: CBC, BMP 01/05/18 07:20 01/05/18 07:20 INR, PTT INR 1.16 (0.83-1.09) H 12/30/17 05:05 Abnormal Lab Results 01/05/18 01/05/18 07:20 07:20 RBC 2.93 L Hgb 9.1 L Hct 28.3 L MCV 96.7 H Anion Gap 6 L Creatinine 0.3 L Random Glucose 54 L Calcium 7.6 L C-Reactive Protein 3.9 H Problem List - Problems (1) DKA (diabetic ketoacidoses) Assessment/Plan: On insulin, fluids; glucose better-controlled. Lisinopril 2.5 mg daily added. Keep Mg 2-2.4, PO4 2.5-4.9, and K 4-4.5. Code(s): E13.10 - OTH DIABETES MELLITUS WITH KETOACIDOSIS WITHOUT COMA Qualifiers: Diabetes mellitus type: type 1 Diabetes mellitus complication detail: without coma Qualified Code(s): E10.10 - Type 1 diabetes mellitus with ketoacidosis without coma (2) Lactic acidosis Assessment/Plan: On Ancef Code(s): E87.2 - ACIDOSIS (3) Leg ulcer, left Assessment/Plan: CTA LEs: results pending. f/u with vascular team. Code(s): L97.929 - NON-PRS CHRONIC ULC UNSP PRT OF L LOW LEG W UNSP SEVERITY (4) Wound infection complicating hardware Assessment/Plan: f/u with orthopedics, vascular . Code(s): T84.7XXA - INFECT/INFLM REACT DUE TO OTH INT ORTH PROSTH DEV/GRFT, INIT Qualifiers: Encounter type: initial encounter Qualified Code(s): T84.7XXA - Infection and inflammatory reaction due to other internal orthopedic prosthetic devices, implants and grafts, initial encounter (5) Closed left hip fracture Code(s): S72.002A - FRACTURE OF UNSP PART OF NECK OF LEFT FEMUR, INIT (6) CAD (coronary artery disease) Assessment/Plan: Hx 3VD-->coronary stents (pt says she had an AL and CABG, but neither is apparently true). LDL cholesterol >140 mg/dL; will increase atorvastatin to 80 mg daily; keep LDL cholestereol < 70 mg/dL. Code(s): I25.10 - ATHSCL HEART DISEASE OF [place] CORONARY ARTERY W/O ANG PCTRS (7) Depression Code(s): F32.9 - MAJOR DEPRESSIVE DISORDER, SINGLE EPISODE, UNSPECIFIED (8) Diabetes mellitus Assessment/Plan: Consider SGLP2 inhibitor because of potential benefit in lower risk for cardiac events (though caution with Jardience if PAD, due to possible increased sid for amputation). On lisinopril (HTN; DM; diastolic CHF). Code(s): E11.9 - TYPE 2 DIABETES MELLITUS WITHOUT COMPLICATIONS (9) Hyperlipidemia Code(s): E78.5 - HYPERLIPIDEMIA, UNSPECIFIED
--- NOTE | 2018-01-05 13:18 | PN ---
Progress Note (short form) - Note Progress Note: reports left leg pain is improved eating lunch Vital Signs Period Temp Pulse Resp BP Sys/Chen Pulse Ox Last 24 Hr 97.9 F-98.9 F 79-93 18-18 93-126/45-55 97 still with purulent drainage from the sinus tracts, with erythema LLE Laboratory Tests 12/31/17 01/05/18 05:30 07:20 C-Reactive Protein 14.6 H 3.9 H CBC, BMP 01/05/18 07:20 01/05/18 07:20 ct scan reviewed with dr culp- no bony erosion a/p DKA resolved brittle DM suspected infected hardware-MSSA- switch to cefazolin ct scan no obvius bony erosion radiologist reccd bone scan - will order Problem List - Problems (1) DKA (diabetic ketoacidoses) Code(s): E13.10 - OTH DIABETES MELLITUS WITH KETOACIDOSIS WITHOUT COMA Qualifiers: Diabetes mellitus type: type 1 Diabetes mellitus complication detail: without coma Qualified Code(s): E10.10 - Type 1 diabetes mellitus with ketoacidosis without coma (2) Wound infection complicating hardware Code(s): T84.7XXA - INFECT/INFLM REACT DUE TO OTH INT ORTH PROSTH DEV/GRFT, INIT Qualifiers: Encounter type: initial encounter Qualified Code(s): T84.7XXA - Infection and inflammatory reaction due to other internal orthopedic prosthetic devices, implants and grafts, initial encounter
[2018-01-05] MEDS ORDERED: ONDANSETRON 4 MG/2 ML VIAL IVPUSH PRN (13:19)
--- NOTE | 2018-01-05 13:38 | PN ---
Progress Note, Physician History of Present Illness: Pt w/o fever, CP, cg, SOB, abd pain, leg pain. Pt with nausea, no vomiting, better now; pt had BM today - Current Medication List Current Medications: Active Medications Acetaminophen (Tylenol -) 650 mg PO Q6H PRN PRN Reason: PAIN 1-3 Last Admin: 01/04/18 23:26 Dose: 650 mg Aspirin (Asa -) 81 mg PO DAILY [facility] Last Admin: 01/05/18 10:36 Dose: 81 mg Atorvastatin Calcium (Lipitor -) 80 mg PO HS [facility] Clopidogrel Bisulfate (Plavix -) 75 mg PO DAILY [facility] Last Admin: 01/05/18 10:36 Dose: 75 mg Heparin Sodium (Porcine) (Heparin -) 5,000 unit SQ TID [facility] Last Admin: 01/05/18 06:45 Dose: 5,000 unit Cefazolin Sodium 2 gm/ Sodium (Chloride) 100 mls @ 200 mls/hr IVPB Q8H-IV [facility] Last Admin: 01/05/18 12:29 Dose: 200 mls/hr Insulin Aspart (Novolog Vial Sliding Scale -) 0 - 10 vial SQ ACHS [facility]; Protocol Last Admin: 01/05/18 12:34 Dose: Not Given Insulin Detemir (Levemir Vial) 5 units SQ BID@0700,2200 [facility] Last Admin: 01/05/18 06:45 Dose: 5 units Lisinopril (Prinivil) 2.5 mg PO DAILY [facility] Last Admin: 01/05/18 10:37 Dose: 2.5 mg Ondansetron HCl (Zofran Injection) 4 mg IVPUSH Q8H PRN PRN Reason: NAUSEA Primidone (Mysoline -) 500 mg PO BID [facility] Last Admin: 01/05/18 10:38 Dose: 500 mg Silver Sulfadiazine (Silvadene -) 1 applic TP DAILY [facility] Last Admin: 01/04/18 16:53 Dose: 1 applic - Objective Vital Signs: Vital Signs Temperature 97.9 F 01/05/18 09:50 Pulse Rate 79 01/05/18 09:50 Respiratory Rate 18 01/05/18 09:50 Blood Pressure 116/55 L 01/05/18 09:50 O2 Sat by Pulse Oximetry (%) 97 01/04/18 21:00 Constitutional: Yes: No Distress, Calm Cardiovascular: Yes: Regular Rate and Rhythm, S1, S2 Respiratory: Yes: Regular, CTA Bilaterally. No: Rales Gastrointestinal: Yes: Normal Bowel Sounds, Soft. No: Tenderness Extremities: Yes: Other (left wound with purulent drainage) Edema: No Labs: CBC, BMP 01/05/18 07:20 01/05/18 07:20 INR, PTT INR 1.16 (0.83-1.09) H 12/30/17 05:05 Problem List - Problems (1) DKA (diabetic ketoacidoses) Code(s): E13.10 - OTH DIABETES MELLITUS WITH KETOACIDOSIS WITHOUT COMA Qualifiers: Diabetes mellitus type: type 1 Diabetes mellitus complication detail: without coma Qualified Code(s): E10.10 - Type 1 diabetes mellitus with ketoacidosis without coma (2) Lactic acidosis Code(s): E87.2 - ACIDOSIS (3) Diabetes mellitus Code(s): E11.9 - TYPE 2 DIABETES MELLITUS WITHOUT COMPLICATIONS (4) Hyperkalemia Code(s): E87.5 - HYPERKALEMIA (5) Hypokalemia Code(s): E87.6 - HYPOKALEMIA (6) CAD (coronary artery disease) Code(s): I25.10 - ATHSCL HEART DISEASE OF [place] CORONARY ARTERY W/O ANG PCTRS (7) COPD (chronic obstructive pulmonary disease) Code(s): J44.9 - CHRONIC OBSTRUCTIVE PULMONARY DISEASE, UNSPECIFIED (8) Leg ulcer, left Code(s): L97.929 - NON-PRS CHRONIC ULC UNSP PRT OF L LOW LEG W UNSP SEVERITY (9) Wound infection complicating hardware Code(s): T84.7XXA - INFECT/INFLM REACT DUE TO OTH INT ORTH PROSTH DEV/GRFT, INIT Qualifiers: Encounter type: initial encounter Qualified Code(s): T84.7XXA - Infection and inflammatory reaction due to other internal orthopedic prosthetic devices, implants and grafts, initial encounter (10) Dehydration Code(s): E86.0 - DEHYDRATION (11) Essential tremor Code(s): G25.0 - ESSENTIAL TREMOR (12) Diabetic gastroparesis Code(s): E11.43 - TYPE 2 DIABETES W DIABETIC AUTONOMIC (POLY)NEUROPATHY; K31.84 - GASTROPARESIS (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 Off Insulin drip CCM, ID , Cardio, Ortho, Endo consults are appreciated. Dr. Wellington called me today, states that hardware is MRI compatible. He wants to be kept up to date and if needed would remove the hardware. Levemir dose was changed; to f/u BGM values. DVT proph PT eval AM labs; to f/u H/H Case was d/w pt's nurse.
[2018-01-05] MEDS: SILVER SULFADIAZINE 1% TOP CREAM 50 GM JAR TP SCH (17:06)
[2018-01-05] MEDS ORDERED: INSULIN (NOVOLOG) ASPART 100 UNITS/ML 10ML VIAL ONE (21:53)
[2018-01-05] MEDS: ATORVASTATIN CA 80 MG TABLET (FP) PO SCH (21:56)
[2018-01-06] MEDS: CEFAZOLIN 2 GM in SODIUM CHLORIDE 100 ML IVPB SCH ×3 (02:24→19:07)
[2018-01-06] MEDS: INSULIN SLIDING SCALE (NOVOLOG) 1 VIAL SQ SCH ×4 (06:48→21:31)
[2018-01-06] MEDS: INSULIN (LEVEMIR) 100 UNITS/ML UNITS SQ SCH ×2 (06:48→21:47)
[2018-01-06] MEDS: HEPARIN NA (PORCINE) 5,000 UNITS/ML 1ML VIAL SQ SCH ×4 (06:49→21:47)
[2018-01-06] MEDS ORDERED: INSULIN (NOVOLOG) ASPART 100 UNITS/ML 10ML VIAL ONE ×3 (07:05→18:20)
[2018-01-06 07:57] LABS: HEMATOCRIT 26.8 % (32.4-45.2); HEMOGLOBIN 8.6 GM/dL (10.7-15.3); MCH 30.9 pg (25.7-33.7); MCHC 32.1 g/dl (32.0-36.0); MEAN CELL VOLUME 96.4 fl (80-96); MEAN PLT VOLUME 7.9 fl (7.5-11.1); PLATELET COUNT 381 K/MM3 (134-434); RBC 2.78 M/mm3 (3.60-5.2); RDW 13.9 % (11.6-15.6); WHITE BLOOD COUNT 6.2 K/mm3 (4.0-10.0)
[2018-01-06 08:26] LABS: ALBUMIN 1.7 g/dl (3.4-5.0); ALK PHOS 93 U/L (45-117); ANION GAP 6 MMOL/L (8-16); BILIRUBIN,TOTAL 0.1 mg/dL (0.2-1); BLOOD UREA NITROGEN 14 mg/dL (7-18); CALCIUM 7.4 mg/dL (8.5-10.1); CHLORIDE 101 mmol/L (98-107); CO2 27 mmol/L (21-32); CREATININE 0.5 mg/dL (0.55-1.3); GLUCOSE,RANDOM 192 mg/dL (74-106); POTASSIUM 4.9 mmol/L (3.5-5.1); SGOT/AST 37 U/L (15-37); SGPT/ALT 12 U/L (13-61); SODIUM 134 mmol/L (136-145); TOT PROT 4.7 g/dl (6.4-8.2)
[2018-01-06] MEDS ORDERED: PT OWN MED DRAWER 7, Y5N ONE ×5 (10:44→21:04)
[2018-01-06] MEDS: CLOPIDOGREL BISULFATE 75 MG TABLET (FP) PO SCH (10:46)
[2018-01-06] MEDS: PRIMIDONE 250 MG TABLET PO SCH ×2 (10:46→21:46)
[2018-01-06] MEDS: ASPIRIN 81 MG CHEWABLE TABLETS PO SCH (10:46)
--- NOTE | 2018-01-06 10:49 | PN ---
Progress Note, Physician History of Present Illness: Pt seen and examined in the ICU. Briefly, 57yo female with h/o TBI with paraplegia, IDDM, CAD s/p CABG, sacral ulcers who was admitted with hyperglycemia on fingersticks. Found to be in DKA with anion gap 22. States compliance with insulin although pt poor historian. No fevers, chills. No cough or chest pain. +polyuria but without dysuria. PMH ASHD s/p 3 MARGARITO 2005 HTN Hyperlipidemia IDDM - Current Medication List Current Medications: Active Medications Acetaminophen (Tylenol -) 650 mg PO Q6H PRN PRN Reason: PAIN 1-3 Last Admin: 01/04/18 23:26 Dose: 650 mg Aspirin (Asa -) 81 mg PO DAILY [facility] Last Admin: 01/06/18 10:46 Dose: 81 mg Atorvastatin Calcium (Lipitor -) 80 mg PO HS [facility] Last Admin: 01/05/18 21:56 Dose: 80 mg Clopidogrel Bisulfate (Plavix -) 75 mg PO DAILY [facility] Last Admin: 01/06/18 10:46 Dose: 75 mg Heparin Sodium (Porcine) (Heparin -) 5,000 unit SQ TID [facility] Last Admin: 01/06/18 06:49 Dose: 5,000 unit Cefazolin Sodium 2 gm/ Sodium (Chloride) 100 mls @ 200 mls/hr IVPB Q8H-IV [facility] Last Admin: 01/06/18 02:24 Dose: 200 mls/hr Insulin Aspart (Novolog Vial Sliding Scale -) 0 - 10 vial SQ ACHS [facility]; Protocol Last Admin: 01/06/18 06:48 Dose: 4 units Insulin Detemir (Levemir Vial) 5 units SQ BID@0700,2200 [facility] Last Admin: 01/06/18 06:48 Dose: 5 units Lisinopril (Prinivil) 2.5 mg PO DAILY [facility] Last Admin: 01/05/18 10:37 Dose: 2.5 mg Ondansetron HCl (Zofran Injection) 4 mg IVPUSH Q8H PRN PRN Reason: NAUSEA Last Admin: 01/05/18 16:23 Dose: 4 mg Primidone (Mysoline -) 500 mg PO BID [facility] Last Admin: 01/06/18 10:46 Dose: 500 mg Silver Sulfadiazine (Silvadene -) 1 applic TP DAILY [facility] Last Admin: 01/05/18 17:06 Dose: 1 applic - Objective Vital Signs: Vital Signs Temperature 99.2 F 01/06/18 10:40 Pulse Rate 80 01/06/18 10:40 Respiratory Rate 20 01/06/18 10:40 Blood Pressure 92/41 L 01/06/18 10:40 O2 Sat by Pulse Oximetry (%) 97 01/05/18 21:00 Eyes: Yes: WNL, Conjunctiva Clear, EOM Intact HENT: Yes: WNL, Atraumatic, Normocephalic Neck: Yes: WNL, Supple, Trachea Midline Cardiovascular: Yes: WNL, Regular Rate and Rhythm Respiratory: Yes: WNL, Regular, CTA Bilaterally Gastrointestinal: Yes: WNL, Normal Bowel Sounds Genitourinary: Yes: WNL Musculoskeletal: Yes: WNL Extremities: Yes: WNL Edema: No Integumentary: Yes: WNL Neurological: Yes: WNL, Alert, Oriented ...Motor Strength: WNL Psychiatric: Yes: WNL Labs: CBC, BMP 01/06/18 06:50 01/06/18 06:50 INR, PTT INR 1.16 (0.83-1.09) H 12/30/17 05:05 Problem List - Problems (1) DKA (diabetic ketoacidoses) Code(s): E13.10 - OTH DIABETES MELLITUS WITH KETOACIDOSIS WITHOUT COMA Qualifiers: Diabetes mellitus type: type 1 Diabetes mellitus complication detail: without coma Qualified Code(s): E10.10 - Type 1 diabetes mellitus with ketoacidosis without coma (2) Hyperglycemia Code(s): R73.9 - HYPERGLYCEMIA, UNSPECIFIED (3) Lactic acidosis Code(s): E87.2 - ACIDOSIS (4) Wound infection complicating hardware Code(s): T84.7XXA - INFECT/INFLM REACT DUE TO OTH INT ORTH PROSTH DEV/GRFT, INIT Qualifiers: Encounter type: initial encounter Qualified Code(s): T84.7XXA - Infection and inflammatory reaction due to other internal orthopedic prosthetic devices, implants and grafts, initial encounter (5) Anemia Code(s): D64.9 - ANEMIA, UNSPECIFIED (6) Asthma Code(s): J45.909 - UNSPECIFIED ASTHMA, UNCOMPLICATED (7) Closed left hip fracture Code(s): S72.002A - FRACTURE OF UNSP PART OF NECK OF LEFT FEMUR, INIT (8) Corneal abrasion, left Code(s): S05.02XA - INJ CONJUNCTIVA AND CORNEAL ABRASION W/O FB, LEFT EYE, INIT Qualifiers: Encounter type: initial encounter Qualified Code(s): S05.02XA - Injury of conjunctiva and corneal abrasion without foreign body, left eye, initial encounter (9) Dehydration Code(s): E86.0 - DEHYDRATION (10) Diabetes mellitus Code(s): E11.9 - TYPE 2 DIABETES MELLITUS WITHOUT COMPLICATIONS (11) Diabetic gastroparesis Code(s): E11.43 - TYPE 2 DIABETES W DIABETIC AUTONOMIC (POLY)NEUROPATHY; K31.84 - GASTROPARESIS (12) Diabetic hypoglycemia Code(s): E11.649 - TYPE 2 DIABETES MELLITUS WITH HYPOGLYCEMIA WITHOUT COMA (13) Diarrhea Code(s): R19.7 - DIARRHEA, UNSPECIFIED (14) Essential tremor Code(s): G25.0 - ESSENTIAL TREMOR (15) Facial contusion Code(s): S00.83XA - CONTUSION OF OTHER PART OF HEAD, INITIAL ENCOUNTER Qualifiers: Encounter type: initial encounter Qualified Code(s): S00.83XA - Contusion of other part of head, initial encounter (16) Fall Code(s): W19.XXXA - UNSPECIFIED FALL, INITIAL ENCOUNTER (17) Fever Code(s): R50.9 - FEVER, UNSPECIFIED (18) Finger pain, left Code(s): M79.645 - PAIN IN LEFT FINGER(S) (19) Fracture of left tibia and fibula Code(s): S82.202A - UNSP FRACTURE OF SHAFT OF LEFT TIBIA, INIT FOR CLOS FX; S82.402A - UNSP FRACTURE OF SHAFT OF LEFT FIBULA, INIT FOR CLOS FX Qualifiers: Encounter type: initial encounter Fracture type: closed Qualified Code(s) : S82.202A - Unspecified fracture of shaft of left tibia, initial encounter for closed fracture (20) History of VT (myocardial infarction) Code(s): I25.2 - OLD MYOCARDIAL INFARCTION (21) Hyperkalemia Code(s): E87.5 - HYPERKALEMIA (22) Hypoglycemia Code(s): E16.2 - HYPOGLYCEMIA, UNSPECIFIED (23) Hypoglycemia due to insulin Code(s): E16.0 - DRUG-INDUCED HYPOGLYCEMIA WITHOUT COMA; T38.3X5A - ADVERSE EFFECT OF INSULIN AND ORAL HYPOGLYCEMIC DRUGS, INIT (24) Hypokalemia Code(s): E87.6 - HYPOKALEMIA (25) Hypomagnesemia Code(s): E83.42 - HYPOMAGNESEMIA (26) Hypophosphatasia Code(s): E83.39 - OTHER DISORDERS OF PHOSPHORUS METABOLISM (27) Hypoproteinemia Code(s): E77.8 - OTHER DISORDERS OF GLYCOPROTEIN METABOLISM (28) Hypothermia Code(s): T68.XXXA - HYPOTHERMIA, INITIAL ENCOUNTER (29) Hypothyroid Code(s): E03.9 - HYPOTHYROIDISM, UNSPECIFIED (30) IDDM (insulin dependent diabetes mellitus) Code(s): E11.9 - TYPE 2 DIABETES MELLITUS WITHOUT COMPLICATIONS; Z79.4 - PICKER TENDER (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 OF INSULIN (31) Lethargy Code(s): R53.83 - OTHER FATIGUE (32) Leukocytosis Code(s): D72.829 - ELEVATED WHITE BLOOD CELL COUNT, UNSPECIFIED (33) Malnutrition Code(s): E46 - UNSPECIFIED PROTEIN-CALORIE MALNUTRITION (34) Nausea and vomiting Code(s): R11.2 - NAUSEA WITH VOMITING, UNSPECIFIED (35) Proximal humerus fracture Code(s): S42.209A - UNSP FRACTURE OF UPPER END OF UNSP HUMERUS, INIT FOR CLOS FX (36) Seizure Code(s): R56.9 - UNSPECIFIED CONVULSIONS (37) Shoulder pain, acute Code(s): M25.519 - PAIN IN UNSPECIFIED SHOULDER (38) Systemic inflammatory response syndrome (SIRS) Code(s): R65.10 - SIRS OF NON-INFECTIOUS ORIGIN W/O ACUTE ORGAN DYSFUNCTION (39) UTI (urinary tract infection) Code(s): N39.0 - URINARY TRACT INFECTION, SITE NOT SPECIFIED Qualifiers: Urinary tract infection type: acute cystitis Hematuria presence: with hematuria Qualified Code(s): N30.01 - Acute cystitis with hematuria (40) Unable to ambulate Code(s): R26.2 - DIFFICULTY IN WALKING, NOT ELSEWHERE CLASSIFIED (41) Urinary retention Code(s): R33.9 - RETENTION OF URINE, UNSPECIFIED (42) Weakness Code(s): R53.1 - WEAKNESS (43) CAD (coronary artery disease) Code(s): I25.10 - ATHSCL HEART DISEASE OF [place] CORONARY ARTERY W/O ANG PCTRS (44) COPD (chronic obstructive pulmonary disease) Code(s): J44.9 - CHRONIC OBSTRUCTIVE PULMONARY DISEASE, UNSPECIFIED (45) Diabetic autonomic neuropathy associated with diabetes mellitus due to underlying condition Code(s): E08.43 - DIAB DUE TO UNDRL COND W DIABETIC AUTONM (POLY)NEUROPATHY (46) Humeral head fracture Code(s): S42.293A - OTH DISP FX OF UPPER END OF UNSP HUMERUS, INIT FOR CLOS FX (47) Knee fracture, left Code(s): PVN6358 - (48) Smoker Code(s): F17.200 - NICOTINE DEPENDENCE, UNSPECIFIED, UNCOMPLICATED Assessment/Plan - Problems - Problems (1) DKA (diabetic ketoacidoses) Assessment/Plan: On insulin, fluids; glucose better-controlled. Lisinopril 2.5 mg daily added. Keep Mg 2-2.4, PO4 2.5-4.9, and K 4-4.5. Code(s): E13.10 - OTH DIABETES MELLITUS WITH KETOACIDOSIS WITHOUT COMA Qualifiers: Diabetes mellitus type: type 1 Diabetes mellitus complication detail: without coma Qualified Code(s): E10.10 - Type 1 diabetes mellitus with ketoacidosis without coma (2) Lactic acidosis Assessment/Plan: On Ancef Code(s): E87.2 - ACIDOSIS (3) Leg ulcer, left Assessment/Plan: CTA LEs: results pending. f/u with vascular team. Code(s): L97.929 - NON-PRS CHRONIC ULC UNSP PRT OF L LOW LEG W UNSP SEVERITY (4) Wound infection complicating hardware Assessment/Plan: f/u with orthopedics, vascular . Code(s): T84.7XXA - INFECT/INFLM REACT DUE TO OTH INT ORTH PROSTH DEV/GRFT, INIT Qualifiers: Encounter type: initial encounter Qualified Code(s): T84.7XXA - Infection and inflammatory reaction due to other internal orthopedic prosthetic devices, implants and grafts, initial encounter (5) Closed left hip fracture Code(s): S72.002A - FRACTURE OF UNSP PART OF NECK OF LEFT FEMUR, INIT (6) CAD (coronary artery disease) Assessment/Plan: Hx 3VD-->coronary stents (pt says she had an VT and CABG, but neither is apparently true). LDL cholesterol >140 mg/dL; will increase atorvastatin to 80 mg daily; keep LDL cholestereol < 70 mg/dL. Code(s): I25.10 - ATHSCL HEART DISEASE OF [place] CORONARY ARTERY W/O ANG PCTRS (7) Depression Code(s): F32.9 - MAJOR DEPRESSIVE DISORDER, SINGLE EPISODE, UNSPECIFIED (8) Diabetes mellitus Assessment/Plan: Consider SGLP2 inhibitor because of potential benefit in lower risk for cardiac events (though caution with Jardience if PAD, due to possible increased sid for amputation). On lisinopril (HTN; DM; diastolic CHF). Code(s): E11.9 - TYPE 2 DIABETES MELLITUS WITHOUT COMPLICATIONS (9) Hyperlipidemia Code(s): E78.5 - HYPERLIPIDEMIA, UNSPECIFIED
[2018-01-06] MEDS: LISINOPRIL 5 MG TABLET (FP) PO SCH (10:50)
--- NOTE | 2018-01-06 14:25 | PN ---
Progress Note, Physician History of Present Illness: Pt w/o fever, CP, cg, SOB, abd pain, leg pain. Hypeglycemia was noticed. Pt undergoing bone scan - Current Medication List Current Medications: Active Medications Acetaminophen (Tylenol -) 650 mg PO Q6H PRN PRN Reason: PAIN 1-3 Last Admin: 01/04/18 23:26 Dose: 650 mg Aspirin (Asa -) 81 mg PO DAILY [facility] Last Admin: 01/06/18 10:46 Dose: 81 mg Atorvastatin Calcium (Lipitor -) 80 mg PO HS [facility] Last Admin: 01/05/18 21:56 Dose: 80 mg Clopidogrel Bisulfate (Plavix -) 75 mg PO DAILY [facility] Last Admin: 01/06/18 10:46 Dose: 75 mg Heparin Sodium (Porcine) (Heparin -) 5,000 unit SQ TID [facility] Last Admin: 01/06/18 06:49 Dose: 5,000 unit Cefazolin Sodium 2 gm/ Sodium (Chloride) 100 mls @ 200 mls/hr IVPB Q8H-IV [facility] Last Admin: 01/06/18 12:03 Dose: 200 mls/hr Insulin Aspart (Novolog Vial Sliding Scale -) 0 - 10 vial SQ ACHS [facility]; Protocol Last Admin: 01/06/18 12:23 Dose: 10 units Insulin Detemir (Levemir Vial) 5 units SQ BID@0700,2200 [facility] Last Admin: 01/06/18 06:48 Dose: 5 units Lisinopril (Prinivil) 2.5 mg PO DAILY [facility] Last Admin: 01/06/18 10:50 Dose: Not Given Ondansetron HCl (Zofran Injection) 4 mg IVPUSH Q8H PRN PRN Reason: NAUSEA Last Admin: 01/05/18 16:23 Dose: 4 mg Primidone (Mysoline -) 500 mg PO BID [facility] Last Admin: 01/06/18 10:46 Dose: 500 mg Silver Sulfadiazine (Silvadene -) 1 applic TP DAILY [facility] Last Admin: 01/05/18 17:06 Dose: 1 applic - Objective Vital Signs: Vital Signs Temperature 99.2 F 01/06/18 10:40 Pulse Rate 80 01/06/18 10:40 Respiratory Rate 20 01/06/18 10:40 Blood Pressure 92/41 L 01/06/18 10:40 O2 Sat by Pulse Oximetry (%) 97 01/05/18 21:00 Constitutional: Yes: No Distress, Calm Cardiovascular: Yes: Regular Rate and Rhythm, S1, S2 Respiratory: Yes: Regular, CTA Bilaterally. No: Rales Gastrointestinal: Yes: Normal Bowel Sounds, Soft. No: Tenderness Edema: No Neurological: Yes: Alert, Oriented Labs: CBC, BMP 01/06/18 06:50 01/06/18 06:50 INR, PTT INR 1.16 (0.83-1.09) H 12/30/17 05:05 Problem List - Problems (1) DKA (diabetic ketoacidoses) Code(s): E13.10 - OTH DIABETES MELLITUS WITH KETOACIDOSIS WITHOUT COMA Qualifiers: Diabetes mellitus type: type 1 Diabetes mellitus complication detail: without coma Qualified Code(s): E10.10 - Type 1 diabetes mellitus with ketoacidosis without coma (2) Lactic acidosis Code(s): E87.2 - ACIDOSIS (3) Diabetes mellitus Code(s): E11.9 - TYPE 2 DIABETES MELLITUS WITHOUT COMPLICATIONS (4) Hyperkalemia Code(s): E87.5 - HYPERKALEMIA (5) Hypokalemia Code(s): E87.6 - HYPOKALEMIA (6) CAD (coronary artery disease) Code(s): I25.10 - ATHSCL HEART DISEASE OF [place] CORONARY ARTERY W/O ANG PCTRS (7) COPD (chronic obstructive pulmonary disease) Code(s): J44.9 - CHRONIC OBSTRUCTIVE PULMONARY DISEASE, UNSPECIFIED (8) Leg ulcer, left Code(s): L97.929 - NON-PRS CHRONIC ULC UNSP PRT OF L LOW LEG W UNSP SEVERITY (9) Wound infection complicating hardware Code(s): T84.7XXA - INFECT/INFLM REACT DUE TO OTH INT ORTH PROSTH DEV/GRFT, INIT Qualifiers: Encounter type: initial encounter Qualified Code(s): T84.7XXA - Infection and inflammatory reaction due to other internal orthopedic prosthetic devices, implants and grafts, initial encounter (10) Dehydration Code(s): E86.0 - DEHYDRATION (11) Essential tremor Code(s): G25.0 - ESSENTIAL TREMOR (12) Diabetic gastroparesis Code(s): E11.43 - TYPE 2 DIABETES W DIABETIC AUTONOMIC (POLY)NEUROPATHY; K31.84 - GASTROPARESIS (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 Off Insulin drip CCM, ID , Cardio, Ortho, Endo consults are appreciated. To monitor H/H ( is trending down) Levemir dose was increased; to f/u BGM values. To f/u Bone Scan report DVT proph PT eval AM labs Case was d/w Dr. Plummer. Case was d/w pt's nurse.
[2018-01-06] MEDS: SILVER SULFADIAZINE 1% TOP CREAM 50 GM JAR TP SCH ×3 (15:00→17:00)
[2018-01-06] MEDS: ACETAMINOPHEN 325 MG TABLET (FP) PO PRN (21:40)
[2018-01-06] MEDS: ATORVASTATIN CA 80 MG TABLET (FP) PO SCH (21:46)
[2018-01-07] MEDS ORDERED: PT OWN MED DRAWER 7, Y5N ONE ×5 (01:27→21:55)
[2018-01-07] MEDS: CEFAZOLIN 2 GM in SODIUM CHLORIDE 100 ML IVPB SCH ×3 (02:05→19:53)
[2018-01-07] MEDS: INSULIN (LEVEMIR) 100 UNITS/ML UNITS SQ SCH ×2 (06:01→22:09)
[2018-01-07] MEDS: HEPARIN NA (PORCINE) 5,000 UNITS/ML 1ML VIAL SQ SCH ×3 (06:01→22:09)
[2018-01-07] MEDS: INSULIN SLIDING SCALE (NOVOLOG) 1 VIAL SQ SCH ×4 (06:01→22:10)
[2018-01-07] MEDS ORDERED: DEXTROSE 50%-WATER 25 GM/50 ML DISP.SYRIN ONE (06:03)
[2018-01-07] MEDS ORDERED: DEXTROSE 50%-WATER 25 GM/50 ML DISP.SYRIN IVPUSH ONE (06:30)
[2018-01-07 07:33] LABS: HEMATOCRIT 27.2 % (32.4-45.2); HEMOGLOBIN 8.9 GM/dL (10.7-15.3); MCH 31.7 pg (25.7-33.7); MCHC 32.6 g/dl (32.0-36.0); MEAN CELL VOLUME 97.1 fl (80-96); MEAN PLT VOLUME 7.8 fl (7.5-11.1); PLATELET COUNT 430 K/MM3 (134-434); RDW 14.1 % (11.6-15.6); WHITE BLOOD COUNT 5.6 K/mm3 (4.0-10.0)
[2018-01-07 07:51] LABS: ANION GAP 7 MMOL/L (8-16); BLOOD UREA NITROGEN 11 mg/dL (7-18); CALCIUM 7.8 mg/dL (8.5-10.1); CHLORIDE 103 mmol/L (98-107); CO2 29 mmol/L (21-32); CREATININE 0.4 mg/dL (0.55-1.3); GLUCOSE,RANDOM 116 mg/dL (74-106); LDH 190 U/L (84-246); POTASSIUM 4.9 mmol/L (3.5-5.1); SODIUM 138 mmol/L (136-145)
[2018-01-07] MEDS: ASPIRIN 81 MG CHEWABLE TABLETS PO SCH (10:39)
[2018-01-07] MEDS: LISINOPRIL 5 MG TABLET (FP) PO SCH (10:39)
[2018-01-07] MEDS: CLOPIDOGREL BISULFATE 75 MG TABLET (FP) PO SCH (10:39)
[2018-01-07] MEDS: PRIMIDONE 250 MG TABLET PO SCH ×2 (10:40→22:10)
--- NOTE | 2018-01-07 13:49 | PN ---
Progress Note, Physician History of Present Illness: Pt w/o fever, CP, cg, SOB, abd pain, leg pain. Pt with lose BM today - Current Medication List Current Medications: Active Medications Acetaminophen (Tylenol -) 650 mg PO Q6H PRN PRN Reason: PAIN 1-3 Last Admin: 01/06/18 21:40 Dose: 650 mg Aspirin (Asa -) 81 mg PO DAILY [facility] Last Admin: 01/07/18 10:39 Dose: 81 mg Atorvastatin Calcium (Lipitor -) 80 mg PO HS [facility] Last Admin: 01/06/18 21:46 Dose: 80 mg Clopidogrel Bisulfate (Plavix -) 75 mg PO DAILY [facility] Last Admin: 01/07/18 10:39 Dose: 75 mg Heparin Sodium (Porcine) (Heparin -) 5,000 unit SQ TID [facility] Last Admin: 01/07/18 06:01 Dose: Not Given Cefazolin Sodium 2 gm/ Sodium (Chloride) 100 mls @ 200 mls/hr IVPB Q8H-IV [facility] Last Admin: 01/07/18 10:44 Dose: 200 mls/hr Insulin Aspart (Novolog Vial Sliding Scale -) 0 - 10 vial SQ ACHS [facility]; Protocol Last Admin: 01/07/18 12:10 Dose: Not Given Insulin Detemir (Levemir Vial) 8 units SQ BID@0700,2200 [facility] Last Admin: 01/07/18 06:01 Dose: Not Given Lisinopril (Prinivil) 2.5 mg PO DAILY [facility] Last Admin: 01/07/18 10:39 Dose: 2.5 mg Ondansetron HCl (Zofran Injection) 4 mg IVPUSH Q8H PRN PRN Reason: NAUSEA Last Admin: 01/05/18 16:23 Dose: 4 mg Primidone (Mysoline -) 500 mg PO BID [facility] Last Admin: 01/07/18 10:40 Dose: 500 mg Silver Sulfadiazine (Silvadene -) 1 applic TP DAILY [facility] Last Admin: 01/06/18 15:48 Dose: 1 applic Silver Sulfadiazine (Silvadene -) 1 applic TP DAILY [facility]; Protocol Last Admin: 01/06/18 17:00 Dose: 1 applic - Objective Vital Signs: Vital Signs Temperature 98.7 F 01/07/18 09:05 Pulse Rate 74 01/07/18 09:05 Respiratory Rate 20 01/07/18 09:05 Blood Pressure 118/54 L 01/07/18 09:05 O2 Sat by Pulse Oximetry (%) 97 01/06/18 21:00 Constitutional: Yes: No Distress, Calm Cardiovascular: Yes: Regular Rate and Rhythm, S1, S2 Respiratory: Yes: Regular, CTA Bilaterally. No: Rales Gastrointestinal: Yes: Normal Bowel Sounds, Soft. No: Tenderness Extremities: Yes: Other (left knee woundwith serous drainage) Edema: No Neurological: Yes: Alert, Oriented Labs: CBC, BMP 01/07/18 06:50 01/07/18 06:50 INR, PTT INR 1.16 (0.83-1.09) H 12/30/17 05:05 - ....Imaging Other: Report Reviewed (Bone Scan) Problem List - Problems (1) DKA (diabetic ketoacidoses) Code(s): E13.10 - OTH DIABETES MELLITUS WITH KETOACIDOSIS WITHOUT COMA Qualifiers: Diabetes mellitus type: type 1 Diabetes mellitus complication detail: without coma Qualified Code(s): E10.10 - Type 1 diabetes mellitus with ketoacidosis without coma (2) Lactic acidosis Code(s): E87.2 - ACIDOSIS (3) Diabetes mellitus Code(s): E11.9 - TYPE 2 DIABETES MELLITUS WITHOUT COMPLICATIONS (4) Hyperkalemia Code(s): E87.5 - HYPERKALEMIA (5) Hypokalemia Code(s): E87.6 - HYPOKALEMIA (6) CAD (coronary artery disease) Code(s): I25.10 - ATHSCL HEART DISEASE OF [place] CORONARY ARTERY W/O ANG PCTRS (7) COPD (chronic obstructive pulmonary disease) Code(s): J44.9 - CHRONIC OBSTRUCTIVE PULMONARY DISEASE, UNSPECIFIED (8) Leg ulcer, left Code(s): L97.929 - NON-PRS CHRONIC ULC UNSP PRT OF L LOW LEG W UNSP SEVERITY (9) Wound infection complicating hardware Code(s): T84.7XXA - INFECT/INFLM REACT DUE TO OTH INT ORTH PROSTH DEV/GRFT, INIT Qualifiers: Encounter type: initial encounter Qualified Code(s): T84.7XXA - Infection and inflammatory reaction due to other internal orthopedic prosthetic devices, implants and grafts, initial encounter (10) Dehydration Code(s): E86.0 - DEHYDRATION (11) Essential tremor Code(s): G25.0 - ESSENTIAL TREMOR (12) Diabetic gastroparesis Code(s): E11.43 - TYPE 2 DIABETES W DIABETIC AUTONOMIC (POLY)NEUROPATHY; K31.84 - GASTROPARESIS (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 Off Insulin drip CCM, ID , Cardio, Ortho, Endo consults are appreciated. To monitor H/H ( is trending down) To f/u BGM values. Bone Scan report ( was reviewed with Dr. Plummer) is c/w septic arthritis. I called Dr. Wellington (from [facility]) to discussed pt's transfer to [facility] and left message to call me back. DVT proph PT eval AM labs Case was d/w Dr. Plummer. Case was d/w pt's nurse.
--- NOTE | 2018-01-07 16:56 | PN ---
Progress Note (short form) - Note Progress Note: reports left leg pain is improved eating lunch Vital Signs Period Temp Pulse Resp BP Sys/Chen Pulse Ox Last 24 Hr 98.4 F-100 F 74-81 18-20 93-127/41-61 97 continues with drainage- 2 lesions are on the surgical sutre line and medial to the leg CBC, BMP 01/07/18 06:50 01/07/18 06:50 Microbiology 12/30/17 05:05 Blood - Peripheral Venous Blood Culture - Final NO GROWTH AFTER 5 DAYS INCUBATION 12/30/17 05:05 Blood - Peripheral Venous Blood Culture - Final NO GROWTH AFTER 5 DAYS INCUBATION 12/30/17 15:30 Leg - Left Lower Gram Stain - Final 12/30/17 15:30 Leg - Left Lower Wound Culture - Final Staphylococcus Aureus 12/30/17 05:48 Abscess Gram Stain - Final 12/30/17 05:48 Abscess Wound Culture - Final Staphylococcus Aureus a/p DKA resolved brittle DM suspected infected hardware-MSSA- continue cefazolin ct scan no obvius bony erosion bone scan reviewed d/w dr Starr Problem List - Problems (1) DKA (diabetic ketoacidoses) Code(s): E13.10 - OTH DIABETES MELLITUS WITH KETOACIDOSIS WITHOUT COMA Qualifiers: Diabetes mellitus type: type 1 Diabetes mellitus complication detail: without coma Qualified Code(s): E10.10 - Type 1 diabetes mellitus with ketoacidosis without coma (2) Wound infection complicating hardware Code(s): T84.7XXA - INFECT/INFLM REACT DUE TO OTH INT ORTH PROSTH DEV/GRFT, INIT Qualifiers: Encounter type: initial encounter Qualified Code(s): T84.7XXA - Infection and inflammatory reaction due to other internal orthopedic prosthetic devices, implants and grafts, initial encounter
[2018-01-07] MEDS: SILVER SULFADIAZINE 1% TOP CREAM 50 GM JAR TP SCH ×2 (17:00)
[2018-01-07] MEDS ORDERED: INSULIN (NOVOLOG) ASPART 100 UNITS/ML 10ML VIAL ONE (22:03)
[2018-01-07] MEDS: ATORVASTATIN CA 80 MG TABLET (FP) PO SCH (22:09)
[2018-01-07] MEDS: POLYETHYLENE GLYCOL 3350 119 GM BTL PO SCH (22:10)
[2018-01-07] MEDS: ACETAMINOPHEN 325 MG TABLET (FP) PO PRN (22:16)
[2018-01-08] MEDS: CEFAZOLIN 2 GM in SODIUM CHLORIDE 100 ML IVPB SCH ×3 (02:14→18:54)
[2018-01-08] MEDS: INSULIN SLIDING SCALE (NOVOLOG) 1 VIAL SQ SCH ×4 (06:56→21:50)
[2018-01-08] MEDS: HEPARIN NA (PORCINE) 5,000 UNITS/ML 1ML VIAL SQ SCH ×3 (06:58→21:52)
[2018-01-08] MEDS ORDERED: PT OWN MED DRAWER 7, Y5N ONE ×2 (07:06→10:01)
[2018-01-08 08:08] LABS: HEMATOCRIT 28.4 % (32.4-45.2); HEMOGLOBIN 9.2 GM/dL (10.7-15.3); MCH 31.4 pg (25.7-33.7); MCHC 32.6 g/dl (32.0-36.0); MEAN CELL VOLUME 96.4 fl (80-96); PLATELET COUNT 480 K/MM3 (134-434); RBC 2.95 M/mm3 (3.60-5.2); RDW 14.3 % (11.6-15.6)
[2018-01-08 08:43] LABS: ANION GAP 8 MMOL/L (8-16); BLOOD UREA NITROGEN 15 mg/dL (7-18); CALCIUM 7.3 mg/dL (8.5-10.1); CHLORIDE 101 mmol/L (98-107); CO2 27 mmol/L (21-32); CREATININE 0.3 mg/dL (0.55-1.3); GLUCOSE,RANDOM 97 mg/dL (74-106); POTASSIUM 5.1 mmol/L (3.5-5.1); SODIUM 135 mmol/L (136-145)
[2018-01-08] MEDS: LISINOPRIL 5 MG TABLET (FP) PO SCH (10:07)
[2018-01-08] MEDS: ASPIRIN 81 MG CHEWABLE TABLETS PO SCH (10:07)
[2018-01-08] MEDS: CLOPIDOGREL BISULFATE 75 MG TABLET (FP) PO SCH (10:07)
[2018-01-08] MEDS: INSULIN (LEVEMIR) 100 UNITS/ML UNITS SQ SCH ×2 (10:07→22:00)
[2018-01-08] MEDS: PRIMIDONE 250 MG TABLET PO SCH ×2 (10:09→21:51)
[2018-01-08] MEDS: SILVER SULFADIAZINE 1% TOP CREAM 50 GM JAR TP SCH ×2 (10:09)
[2018-01-08] MEDS: POLYETHYLENE GLYCOL 3350 119 GM BTL PO SCH ×2 (10:20→21:52)
--- NOTE | 2018-01-08 11:12 | PN ---
Progress Note, Physician History of Present Illness: Pt w/o fever, CP, cg, SOB, abd pain, leg pain. Pt with BM last night after enema and this AM - Current Medication List Current Medications: Active Medications Acetaminophen (Tylenol -) 650 mg PO Q6H PRN PRN Reason: PAIN 1-3 Last Admin: 01/07/18 22:16 Dose: 650 mg Aspirin (Asa -) 81 mg PO DAILY [facility] Last Admin: 01/08/18 10:07 Dose: 81 mg Atorvastatin Calcium (Lipitor -) 80 mg PO HS [facility] Last Admin: 01/07/18 22:09 Dose: 80 mg Clopidogrel Bisulfate (Plavix -) 75 mg PO DAILY [facility] Last Admin: 01/08/18 10:07 Dose: 75 mg Heparin Sodium (Porcine) (Heparin -) 5,000 unit SQ TID [facility] Last Admin: 01/08/18 06:58 Dose: 5,000 unit Cefazolin Sodium 2 gm/ Sodium (Chloride) 100 mls @ 200 mls/hr IVPB Q8H-IV [facility] Last Admin: 01/08/18 10:08 Dose: 200 mls/hr Insulin Aspart (Novolog Vial Sliding Scale -) 0 - 10 vial SQ ACHS [facility]; Protocol Last Admin: 01/08/18 06:56 Dose: Not Given Insulin Detemir (Levemir Vial) 7 units SQ BID@0700,2200 [facility] Last Admin: 01/08/18 10:07 Dose: Not Given Lisinopril (Prinivil) 2.5 mg PO DAILY [facility] Last Admin: 01/08/18 10:07 Dose: 2.5 mg Ondansetron HCl (Zofran Injection) 4 mg IVPUSH Q8H PRN PRN Reason: NAUSEA Last Admin: 01/05/18 16:23 Dose: 4 mg Polyethylene Glycol (Miralax (For Daily Use) -) 17 gm PO BID [facility] Last Admin: 01/08/18 10:20 Dose: 17 grams Primidone (Mysoline -) 500 mg PO BID [facility] Last Admin: 01/08/18 10:09 Dose: 500 mg Silver Sulfadiazine (Silvadene -) 1 applic TP DAILY [facility] Last Admin: 01/08/18 10:09 Dose: 1 applic Silver Sulfadiazine (Silvadene -) 1 applic TP DAILY [facility]; Protocol Last Admin: 01/08/18 10:09 Dose: 1 applic - Objective Vital Signs: Vital Signs Temperature 98.0 F 01/08/18 09:10 Pulse Rate 76 01/08/18 09:10 Respiratory Rate 18 01/08/18 09:10 Blood Pressure 110/52 L 01/08/18 09:10 O2 Sat by Pulse Oximetry (%) 97 01/07/18 21:00 Constitutional: Yes: No Distress, Calm Respiratory: Yes: Regular, CTA Bilaterally. No: Rales Gastrointestinal: Yes: Normal Bowel Sounds, Soft. No: Tenderness Edema: No Wound/Incision: Yes: Draining (from left leg wound) Neurological: Yes: Alert, Oriented Labs: CBC, BMP 01/08/18 06:00 01/08/18 06:00 INR, PTT INR 1.16 (0.83-1.09) H 12/30/17 05:05 Problem List - Problems (1) DKA (diabetic ketoacidoses) Code(s): E13.10 - OTH DIABETES MELLITUS WITH KETOACIDOSIS WITHOUT COMA Qualifiers: Diabetes mellitus type: type 1 Diabetes mellitus complication detail: without coma Qualified Code(s): E10.10 - Type 1 diabetes mellitus with ketoacidosis without coma (2) Lactic acidosis Code(s): E87.2 - ACIDOSIS (3) Diabetes mellitus Code(s): E11.9 - TYPE 2 DIABETES MELLITUS WITHOUT COMPLICATIONS (4) Hyperkalemia Code(s): E87.5 - HYPERKALEMIA (5) Hypokalemia Code(s): E87.6 - HYPOKALEMIA (6) CAD (coronary artery disease) Code(s): I25.10 - ATHSCL HEART DISEASE OF [place] CORONARY ARTERY W/O ANG PCTRS (7) COPD (chronic obstructive pulmonary disease) Code(s): J44.9 - CHRONIC OBSTRUCTIVE PULMONARY DISEASE, UNSPECIFIED (8) Leg ulcer, left Code(s): L97.929 - NON-PRS CHRONIC ULC UNSP PRT OF L LOW LEG W UNSP SEVERITY (9) Wound infection complicating hardware Code(s): T84.7XXA - INFECT/INFLM REACT DUE TO OTH INT ORTH PROSTH DEV/GRFT, INIT Qualifiers: Encounter type: initial encounter Qualified Code(s): T84.7XXA - Infection and inflammatory reaction due to other internal orthopedic prosthetic devices, implants and grafts, initial encounter (10) Dehydration Code(s): E86.0 - DEHYDRATION (11) Essential tremor Code(s): G25.0 - ESSENTIAL TREMOR (12) Diabetic gastroparesis Code(s): E11.43 - TYPE 2 DIABETES W DIABETIC AUTONOMIC (POLY)NEUROPATHY; K31.84 - GASTROPARESIS (13) Hypophosphatasia Code(s): E83.39 - OTHER DISORDERS OF PHOSPHORUS METABOLISM (14) Hypoalbuminemia Code(s): E88.09 - OTH DISORDERS OF PLASMA-PROTEIN METABOLISM, NEC (15) Anemia Code(s): D64.9 - ANEMIA, UNSPECIFIED (16) Fecal retention Assessment/Plan: Pr received warm a]water enema last night On MIralax BID repeate abd XR. Code(s): K59.00 - CONSTIPATION, UNSPECIFIED Assessment/Plan Admitted to ICU, transferred to medical floor. Off Insulin drip CCM, ID , Cardio, Ortho, Endo consults are appreciated. To monitor H/H ( is trending down) To f/u BGM values. Yesterday bone Scan report ( was reviewed with Dr. Plummer) is c/w septic arthritis. I called Dr. Wellington (from [facility]) to discussed pt's transfer to [facility] and left message to call me back. Today in AM 5S unit secretary (Sunita) called Dr. Wellington office and left message. DVT proph PT eval AM labs Case was d/w pt's nurse.
[2018-01-08] MEDS ORDERED: INSULIN (NOVOLOG) ASPART 100 UNITS/ML 10ML VIAL ONE (17:31)
[2018-01-08] MEDS: ATORVASTATIN CA 80 MG TABLET (FP) PO SCH (21:51)
[2018-01-09] MEDS: CEFAZOLIN 2 GM in SODIUM CHLORIDE 100 ML IVPB SCH ×3 (02:11→17:10)
[2018-01-09] MEDS: HEPARIN NA (PORCINE) 5,000 UNITS/ML 1ML VIAL SQ SCH ×3 (06:11→22:03)
[2018-01-09] MEDS: INSULIN SLIDING SCALE (NOVOLOG) 1 VIAL SQ SCH ×4 (06:11→22:02)
[2018-01-09] MEDS: INSULIN (LEVEMIR) 100 UNITS/ML UNITS SQ SCH ×2 (06:58→22:02)
[2018-01-09 08:32] LABS: HEMATOCRIT 26.4 % (32.4-45.2); HEMOGLOBIN 8.9 GM/dL (10.7-15.3); MCH 32.3 pg (25.7-33.7); MCHC 33.7 g/dl (32.0-36.0); MEAN PLT VOLUME 7.8 fl (7.5-11.1); PLATELET COUNT 563 K/MM3 (134-434); RBC 2.75 M/mm3 (3.60-5.2); RDW 14.5 % (11.6-15.6); WHITE BLOOD COUNT 7.1 K/mm3 (4.0-10.0)
[2018-01-09 09:08] LABS: ANION GAP 5 MMOL/L (8-16); BLOOD UREA NITROGEN 15 mg/dL (7-18); CALCIUM 7.5 mg/dL (8.5-10.1); CHLORIDE 102 mmol/L (98-107); CO2 28 mmol/L (21-32); CREATININE 0.4 mg/dL (0.55-1.3); GLUCOSE,RANDOM 85 mg/dL (74-106); POTASSIUM 4.5 mmol/L (3.5-5.1); SODIUM 135 mmol/L (136-145)
[2018-01-09] MEDS: ASPIRIN 81 MG CHEWABLE TABLETS PO SCH (10:43)
[2018-01-09] MEDS: PRIMIDONE 250 MG TABLET PO SCH ×2 (10:43→22:03)
[2018-01-09] MEDS: POLYETHYLENE GLYCOL 3350 119 GM BTL PO SCH ×2 (10:43→22:03)
[2018-01-09] MEDS: CLOPIDOGREL BISULFATE 75 MG TABLET (FP) PO SCH (10:44)
[2018-01-09] MEDS: LISINOPRIL 5 MG TABLET (FP) PO SCH (10:44)
[2018-01-09] MEDS: SILVER SULFADIAZINE 1% TOP CREAM 50 GM JAR TP SCH ×2 (10:45)
--- NOTE | 2018-01-09 14:20 | PN ---
Progress Note, Physician Chief Complaint: in bed awake alert NAD afebrile no pain BGMs noted - Current Medication List Current Medications: Active Medications Acetaminophen (Tylenol -) 650 mg PO Q6H PRN PRN Reason: PAIN 1-3 Last Admin: 01/07/18 22:16 Dose: 650 mg Aspirin (Asa -) 81 mg PO DAILY [facility] Last Admin: 01/09/18 10:43 Dose: 81 mg Atorvastatin Calcium (Lipitor -) 80 mg PO HS [facility] Last Admin: 01/08/18 21:51 Dose: 80 mg Clopidogrel Bisulfate (Plavix -) 75 mg PO DAILY [facility] Last Admin: 01/09/18 10:44 Dose: 75 mg Heparin Sodium (Porcine) (Heparin -) 5,000 unit SQ TID [facility] Last Admin: 01/09/18 06:11 Dose: 5,000 unit Cefazolin Sodium 2 gm/ Sodium (Chloride) 100 mls @ 200 mls/hr IVPB Q8H-IV [facility] Last Admin: 01/09/18 10:42 Dose: 200 mls/hr Insulin Aspart (Novolog Vial Sliding Scale -) 0 - 10 vial SQ ACHS [facility]; Protocol Last Admin: 01/09/18 11:25 Dose: 4 units Insulin Detemir (Levemir Vial) 7 units SQ BID@0700,2200 [facility] Last Admin: 01/09/18 06:58 Dose: Not Given Lisinopril (Prinivil) 2.5 mg PO DAILY [facility] Last Admin: 01/09/18 10:44 Dose: 2.5 mg Ondansetron HCl (Zofran Injection) 4 mg IVPUSH Q8H PRN PRN Reason: NAUSEA Last Admin: 01/05/18 16:23 Dose: 4 mg Polyethylene Glycol (Miralax (For Daily Use) -) 17 gm PO BID [facility] Last Admin: 01/09/18 10:43 Dose: 17 grams Primidone (Mysoline -) 500 mg PO BID [facility] Last Admin: 01/09/18 10:43 Dose: 500 mg Silver Sulfadiazine (Silvadene -) 1 applic TP DAILY [facility] Last Admin: 01/09/18 10:45 Dose: 1 applic Silver Sulfadiazine (Silvadene -) 1 applic TP DAILY [facility]; Protocol Last Admin: 01/09/18 10:45 Dose: 1 applic - Objective Vital Signs: Vital Signs Temperature 99.4 F 01/09/18 10:00 Pulse Rate 84 01/09/18 10:00 Respiratory Rate 18 01/09/18 10:00 Blood Pressure 104/50 L 01/09/18 10:00 O2 Sat by Pulse Oximetry (%) 94 L 01/09/18 09:00 Constitutional: Yes: No Distress, Calm Eyes: Yes: Conjunctiva Clear HENT: Yes: Atraumatic Neck: Yes: Supple Cardiovascular: Yes: Regular Rate and Rhythm Respiratory: Yes: CTA Bilaterally Gastrointestinal: Yes: Soft. No: Distention Genitourinary: No: CVA Tenderness - Left, CVA Tenderness - Right Musculoskeletal: No: Joint Stiffness, Joint Swelling Extremities: No: Cold, Cool, Cyanosis Edema: No Integumentary: No: Rash, Venous Stasis Changes Wound/Incision: Yes: Dressing Dry and Intact (L knee) Neurological: Yes: Alert, Oriented, Tremors Psychiatric: Yes: Alert, Oriented. No: Agitated, Suicidal Ideation Labs: CBC, BMP 01/09/18 08:15 01/09/18 08:15 INR, PTT INR 1.16 (0.83-1.09) H 12/30/17 05:05 - ....Imaging Other: Report Reviewed Assessment/Plan 57 YOF DM DKA tremors s/p L knee surgery hardware, infection IV antibiotics per ID ortho f/u awaiting transfer inter-hospital GLU control continue previous meds DVT PFX falls decubs pfx d/w pt and staff pt agreed with plan
[2018-01-09] MEDS ORDERED: INSULIN (NOVOLOG) ASPART 100 UNITS/ML 10ML VIAL ONE (16:54)
[2018-01-09] MEDS ORDERED: PT OWN MED DRAWER 7, Y5N ONE (20:59)
[2018-01-09] MEDS: ATORVASTATIN CA 80 MG TABLET (FP) PO SCH (22:03)
[2018-01-10] MEDS: CEFAZOLIN 2 GM in SODIUM CHLORIDE 100 ML IVPB SCH ×3 (01:54→17:33)
[2018-01-10] MEDS: INSULIN (LEVEMIR) 100 UNITS/ML UNITS SQ SCH ×2 (06:06→21:40)
[2018-01-10] MEDS: HEPARIN NA (PORCINE) 5,000 UNITS/ML 1ML VIAL SQ SCH ×3 (06:06→21:41)
[2018-01-10] MEDS: INSULIN SLIDING SCALE (NOVOLOG) 1 VIAL SQ SCH ×4 (06:06→21:42)
[2018-01-10] MEDS ORDERED: INSULIN (NOVOLOG) ASPART 100 UNITS/ML 10ML VIAL ONE ×2 (07:28→21:13)
[2018-01-10 07:52] LABS: BASO % 0.5 % (0-2.0); HEMATOCRIT 26.9 % (32.4-45.2); LYMPH % 22.1 % (8-40); MCH 32.2 pg (25.7-33.7); MCHC 33.3 g/dl (32.0-36.0); MEAN CELL VOLUME 96.7 fl (80-96); MEAN PLT VOLUME 8.1 fl (7.5-11.1); MONO % 4.9 % (3.8-10.2); NEUT % 70.5 % (42.8-82.8); PLATELET COUNT 549 K/MM3 (134-434); RBC 2.78 M/mm3 (3.60-5.2); RDW 14.4 % (11.6-15.6); WHITE BLOOD COUNT 7.7 K/mm3 (4.0-10.0)
--- NOTE | 2018-01-10 08:18 | PN ---
Progress Note, Physician Chief Complaint: had constipation but better after enema borderline low BP afebrile; visited by family today no new c/o - Current Medication List Current Medications: Active Medications Acetaminophen (Tylenol -) 650 mg PO Q6H PRN PRN Reason: PAIN 1-3 Last Admin: 01/07/18 22:16 Dose: 650 mg Aspirin (Asa -) 81 mg PO DAILY [facility] Last Admin: 01/09/18 10:43 Dose: 81 mg Atorvastatin Calcium (Lipitor -) 80 mg PO HS [facility] Last Admin: 01/09/18 22:03 Dose: 80 mg Clopidogrel Bisulfate (Plavix -) 75 mg PO DAILY [facility] Last Admin: 01/09/18 10:44 Dose: 75 mg Heparin Sodium (Porcine) (Heparin -) 5,000 unit SQ TID [facility] Last Admin: 01/10/18 06:06 Dose: 5,000 unit Cefazolin Sodium 2 gm/ Sodium (Chloride) 100 mls @ 200 mls/hr IVPB Q8H-IV [facility] Last Admin: 01/10/18 01:54 Dose: 200 mls/hr Insulin Aspart (Novolog Vial Sliding Scale -) 0 - 10 vial SQ ACHS [facility]; Protocol Last Admin: 01/10/18 06:06 Dose: 2 units Insulin Detemir (Levemir Vial) 7 units SQ BID@0700,2200 [facility] Last Admin: 01/10/18 06:06 Dose: 7 units Lisinopril (Prinivil) 2.5 mg PO DAILY [facility] Last Admin: 01/09/18 10:44 Dose: 2.5 mg Ondansetron HCl (Zofran Injection) 4 mg IVPUSH Q8H PRN PRN Reason: NAUSEA Last Admin: 01/05/18 16:23 Dose: 4 mg Polyethylene Glycol (Miralax (For Daily Use) -) 17 gm PO BID [facility] Last Admin: 01/09/18 22:03 Dose: Not Given Primidone (Mysoline -) 500 mg PO BID [facility] Last Admin: 01/09/18 22:03 Dose: 500 mg Silver Sulfadiazine (Silvadene -) 1 applic TP DAILY [facility] Last Admin: 01/09/18 10:45 Dose: 1 applic Silver Sulfadiazine (Silvadene -) 1 applic TP DAILY [facility]; Protocol Last Admin: 01/09/18 10:45 Dose: 1 applic - Objective Vital Signs: Vital Signs Temperature 98 F 01/10/18 05:28 Pulse Rate 72 01/10/18 05:28 Respiratory Rate 18 01/10/18 05:28 Blood Pressure 110/46 L 01/10/18 05:28 O2 Sat by Pulse Oximetry (%) 94 L 01/09/18 21:00 Constitutional: Yes: No Distress, Calm Eyes: Yes: Conjunctiva Clear HENT: Yes: Atraumatic Neck: Yes: Supple Cardiovascular: Yes: Regular Rate and Rhythm Respiratory: Yes: CTA Bilaterally Gastrointestinal: Yes: Soft. No: Distention Genitourinary: No: CVA Tenderness - Left, CVA Tenderness - Right, Hematuria Musculoskeletal: No: Joint Stiffness, Joint Swelling Extremities: No: Calf Tenderness, Cold, Cool, Cyanosis Edema: No Integumentary: No: Rash, Venous Stasis Changes Neurological: Yes: Alert, Tremors Psychiatric: Yes: Alert. No: Oriented, Agitated Labs: CBC, BMP 01/10/18 07:15 INR, PTT INR 1.16 (0.83-1.09) H 12/30/17 05:05 - ....Imaging Other: Report Reviewed Assessment/Plan 57 YOF DM DKA tremors s/p L knee surgery hardware, infection IV antibiotics per ID ortho f/u awaiting transfer inter-hospital GLU control stools softeners continue previous meds DVT PFX falls decubs pfx d/w pt and staff pt agreed with plan
[2018-01-10 08:57] LABS: ALBUMIN 1.7 g/dl (3.4-5.0); ALK PHOS 93 U/L (45-117); ANION GAP 7 MMOL/L (8-16); BILIRUBIN,TOTAL 0.1 mg/dL (0.2-1); BLOOD UREA NITROGEN 12 mg/dL (7-18); CALCIUM 7.6 mg/dL (8.5-10.1); CHLORIDE 102 mmol/L (98-107); CO2 27 mmol/L (21-32); CREATININE 0.4 mg/dL (0.55-1.3); GLUCOSE,RANDOM 116 mg/dL (74-106); POTASSIUM 4.5 mmol/L (3.5-5.1); SGOT/AST 58 U/L (15-37); SGPT/ALT 21 U/L (13-61); SODIUM 136 mmol/L (136-145); TOT PROT 4.9 g/dl (6.4-8.2)
[2018-01-10] MEDS ORDERED: PT OWN MED DRAWER 7, Y5N ONE ×2 (09:18→21:13)
[2018-01-10] MEDS: SILVER SULFADIAZINE 1% TOP CREAM 50 GM JAR TP SCH ×2 (09:22→09:23)
[2018-01-10] MEDS: CLOPIDOGREL BISULFATE 75 MG TABLET (FP) PO SCH (09:22)
[2018-01-10] MEDS: POLYETHYLENE GLYCOL 3350 119 GM BTL PO SCH ×2 (09:22→21:41)
[2018-01-10] MEDS: PRIMIDONE 250 MG TABLET PO SCH ×2 (09:22→21:41)
[2018-01-10] MEDS: ASPIRIN 81 MG CHEWABLE TABLETS PO SCH (09:22)
[2018-01-10] MEDS: ACETAMINOPHEN 325 MG TABLET (FP) PO PRN ×3 (09:28→21:50)
[2018-01-10] MEDS: LISINOPRIL 5 MG TABLET (FP) PO SCH (09:28)
[2018-01-10] MEDS: ATORVASTATIN CA 80 MG TABLET (FP) PO SCH (21:40)
--- NOTE | 2018-01-10 23:01 | PN ---
Progress Note, Physician Chief Complaint: Pt denies chest pain or dyspnea; pain at site of left leg surgery if moves on that side History of Present Illness: 57-year-old white female with history of insulin-dependent diabetes, paraplegia , CAD with 3VD-->multiple stents, chronic wound to the left tyler brought in by ambulance for hyperglycemia with home fingerstick greater than 400.Patient was seen earlier in week by MD and was sent home on Keflex for localized tyler chronic wound. There is no increased redness at the site and no fever was reported at home. patient was send home on cephalexin . Patient denies any fevers/chills reports not being able to eat yesterday. Denies nausea, vomiting, abdominal pain, chest pain,. - Current Medication List Current Medications: Active Medications Acetaminophen (Tylenol -) 650 mg PO Q6H PRN PRN Reason: PAIN 1-3 Last Admin: 01/10/18 21:50 Dose: 650 mg Aspirin (Asa -) 81 mg PO DAILY [facility] Last Admin: 01/10/18 09:22 Dose: 81 mg Atorvastatin Calcium (Lipitor -) 80 mg PO HS [facility] Last Admin: 01/10/18 21:40 Dose: 80 mg Clopidogrel Bisulfate (Plavix -) 75 mg PO DAILY [facility] Last Admin: 01/10/18 09:22 Dose: 75 mg Heparin Sodium (Porcine) (Heparin -) 5,000 unit SQ TID [facility] Last Admin: 01/10/18 21:41 Dose: 5,000 unit Cefazolin Sodium 2 gm/ Sodium (Chloride) 100 mls @ 200 mls/hr IVPB Q8H-IV [facility] Last Admin: 01/10/18 17:33 Dose: 200 mls/hr Insulin Aspart (Novolog Vial Sliding Scale -) 0 - 10 vial SQ ACHS [facility]; Protocol Last Admin: 01/10/18 21:42 Dose: 2 units Insulin Detemir (Levemir Vial) 7 units SQ BID@0700,2200 [facility] Last Admin: 01/10/18 21:40 Dose: 7 units Lisinopril (Prinivil) 2.5 mg PO DAILY [facility] Last Admin: 01/10/18 09:28 Dose: Not Given Ondansetron HCl (Zofran Injection) 4 mg IVPUSH Q8H PRN PRN Reason: NAUSEA Last Admin: 01/05/18 16:23 Dose: 4 mg Polyethylene Glycol (Miralax (For Daily Use) -) 17 gm PO BID [facility] Last Admin: 01/10/18 21:41 Dose: Not Given Primidone (Mysoline -) 500 mg PO BID [facility] Last Admin: 01/10/18 21:41 Dose: 500 mg Silver Sulfadiazine (Silvadene -) 1 applic TP DAILY [facility] Last Admin: 01/10/18 09:23 Dose: 1 applic Silver Sulfadiazine (Silvadene -) 1 applic TP DAILY [facility]; Protocol Last Admin: 01/10/18 09:22 Dose: 1 applic - Objective Vital Signs: Vital Signs Temperature 98.7 F 01/10/18 18:54 Pulse Rate 74 01/10/18 18:54 Respiratory Rate 18 01/10/18 18:54 Blood Pressure 102/53 L 01/10/18 18:54 O2 Sat by Pulse Oximetry (%) 95 01/10/18 09:00 Constitutional: Yes: No Distress, Calm, Thin Eyes: Yes: WNL HENT: Yes: WNL Neck: Yes: WNL Cardiovascular: Yes: S1, S2 Respiratory: Yes: Regular Gastrointestinal: Yes: Soft ...Rectal Exam: Yes: Deferred Genitourinary: No: Anuria Musculoskeletal: Yes: Muscle Weakness Extremities: Yes: Other Edema: Yes Edema: LLE: 1+ Peripheral Pulses WNL: Yes Integumentary: Yes: WNL Neurological: Yes: Alert, Oriented, Weakness Psychiatric: Yes: Alert, Oriented Labs: CBC, BMP 01/10/18 07:15 01/10/18 07:15 INR, PTT INR 1.16 (0.83-1.09) H 12/30/17 05:05 Problem List - Problems (1) DKA (diabetic ketoacidoses) Assessment/Plan: On insulin, fluids; glucose better-controlled. Lisinopril 2.5 mg daily added. Keep Mg 2-2.4, PO4 2.5-4.9, and K 4-4.5. Code(s): E13.10 - OTH DIABETES MELLITUS WITH KETOACIDOSIS WITHOUT COMA Qualifiers: Diabetes mellitus type: type 1 Diabetes mellitus complication detail: without coma Qualified Code(s): E10.10 - Type 1 diabetes mellitus with ketoacidosis without coma (2) Lactic acidosis Assessment/Plan: On Ancef Code(s): E87.2 - ACIDOSIS (3) Leg ulcer, left Assessment/Plan: CTA LEs: results noted. f/u with vascular team, ID. Code(s): L97.929 - NON-PRS CHRONIC ULC UNSP PRT OF L LOW LEG W UNSP SEVERITY (4) Wound infection complicating hardware Assessment/Plan: f/u with orthopedics, vascular, ID . Code(s): T84.7XXA - INFECT/INFLM REACT DUE TO OTH INT ORTH PROSTH DEV/GRFT, INIT Qualifiers: Encounter type: initial encounter Qualified Code(s): T84.7XXA - Infection and inflammatory reaction due to other internal orthopedic prosthetic devices, implants and grafts, initial encounter (5) Closed left hip fracture Code(s): S72.002A - FRACTURE OF UNSP PART OF NECK OF LEFT FEMUR, INIT (6) CAD (coronary artery disease) Assessment/Plan: Hx 3VD-->coronary stents (pt says she had an NV and CABG, but neither is apparently true). LDL cholesterol >140 mg/dL; increased atorvastatin to 80 mg daily; keep LDL cholestereol < 70 mg/dL. Code(s): I25.10 - ATHSCL HEART DISEASE OF [place] CORONARY ARTERY W/O ANG PCTRS (7) Depression Code(s): F32.9 - MAJOR DEPRESSIVE DISORDER, SINGLE EPISODE, UNSPECIFIED (8) Diabetes mellitus Assessment/Plan: Consider SGLP2 inhibitor because of potential benefit in lower risk for cardiac events (though caution with Jardience if PAD, due to possible increased risk for amputation). On lisinopril (HTN; DM; diastolic CHF). Code(s): E11.9 - TYPE 2 DIABETES MELLITUS WITHOUT COMPLICATIONS (9) Hyperlipidemia Assessment/Plan: LDL 149 mg/dL. Started atorvastatin 80 mg daily. LFTS presently WNL. Code(s): E78.5 - HYPERLIPIDEMIA, UNSPECIFIED
--- NOTE | 2018-01-10 23:13 | PN ---
Progress Note, Physician Chief Complaint: Pt alert; no complaints. History of Present Illness: 57-year-old white female with history of insulin-dependent diabetes, paraplegia , CAD with 3VD-->multiple stents, chronic wound to the left tyler brought in by ambulance for hyperglycemia with home fingerstick greater than 400.Patient was seen earlier in week by and was sent home on Keflex for localized tyler chronic wound. There is no increased redness at the site and no fever was reported at home. patient was send home on cephalexin . Patient denies any fevers/chills reports not being able to eat yesterday. Denies nausea, vomiting, abdominal pain, chest pain,. - Current Medication List Current Medications: Active Medications Acetaminophen (Tylenol -) 650 mg PO Q6H PRN PRN Reason: PAIN 1-3 Last Admin: 01/10/18 21:50 Dose: 650 mg Aspirin (Asa -) 81 mg PO DAILY [facility] Last Admin: 01/10/18 09:22 Dose: 81 mg Atorvastatin Calcium (Lipitor -) 80 mg PO HS [facility] Last Admin: 01/10/18 21:40 Dose: 80 mg Clopidogrel Bisulfate (Plavix -) 75 mg PO DAILY [facility] Last Admin: 01/10/18 09:22 Dose: 75 mg Heparin Sodium (Porcine) (Heparin -) 5,000 unit SQ TID [facility] Last Admin: 01/10/18 21:41 Dose: 5,000 unit Cefazolin Sodium 2 gm/ Sodium (Chloride) 100 mls @ 200 mls/hr IVPB Q8H-IV [facility] Last Admin: 01/10/18 17:33 Dose: 200 mls/hr Insulin Aspart (Novolog Vial Sliding Scale -) 0 - 10 vial SQ ACHS [facility]; Protocol Last Admin: 01/10/18 21:42 Dose: 2 units Insulin Detemir (Levemir Vial) 7 units SQ BID@0700,2200 [facility] Last Admin: 01/10/18 21:40 Dose: 7 units Lisinopril (Prinivil) 2.5 mg PO DAILY [facility] Last Admin: 01/10/18 09:28 Dose: Not Given Ondansetron HCl (Zofran Injection) 4 mg IVPUSH Q8H PRN PRN Reason: NAUSEA Last Admin: 01/05/18 16:23 Dose: 4 mg Polyethylene Glycol (Miralax (For Daily Use) -) 17 gm PO BID [facility] Last Admin: 01/10/18 21:41 Dose: Not Given Primidone (Mysoline -) 500 mg PO BID [facility] Last Admin: 01/10/18 21:41 Dose: 500 mg Silver Sulfadiazine (Silvadene -) 1 applic TP DAILY [facility] Last Admin: 01/10/18 09:23 Dose: 1 applic Silver Sulfadiazine (Silvadene -) 1 applic TP DAILY [facility]; Protocol Last Admin: 01/10/18 09:22 Dose: 1 applic - Objective Vital Signs: Vital Signs Temperature 98.7 F 01/10/18 18:54 Pulse Rate 74 01/10/18 18:54 Respiratory Rate 18 01/10/18 18:54 Blood Pressure 102/53 L 01/10/18 18:54 O2 Sat by Pulse Oximetry (%) 95 01/10/18 09:00 Constitutional: Yes: No Distress, Thin Eyes: Yes: WNL HENT: Yes: WNL Neck: Yes: WNL Cardiovascular: Yes: S1, S2 Respiratory: Yes: Regular Labs: CBC, BMP 01/10/18 07:15 01/10/18 07:15 INR, PTT INR 1.16 (0.83-1.09) H 12/30/17 05:05 Problem List - Problems (1) DKA (diabetic ketoacidoses) Code(s): E13.10 - OTH DIABETES MELLITUS WITH KETOACIDOSIS WITHOUT COMA Qualifiers: Diabetes mellitus type: type 1 Diabetes mellitus complication detail: without coma Qualified Code(s): E10.10 - Type 1 diabetes mellitus with ketoacidosis without coma (2) Lactic acidosis Code(s): E87.2 - ACIDOSIS (3) Leg ulcer, left Code(s): L97.929 - NON-PRS CHRONIC ULC UNSP PRT OF L LOW LEG W UNSP SEVERITY (4) Wound infection complicating hardware Code(s): T84.7XXA - INFECT/INFLM REACT DUE TO OTH INT ORTH PROSTH DEV/GRFT, INIT Qualifiers: Encounter type: initial encounter Qualified Code(s): T84.7XXA - Infection and inflammatory reaction due to other internal orthopedic prosthetic devices, implants and grafts, initial encounter (5) Closed left hip fracture Code(s): S72.002A - FRACTURE OF UNSP PART OF NECK OF LEFT FEMUR, INIT (6) CAD (coronary artery disease) Code(s): I25.10 - ATHSCL HEART DISEASE OF [place] CORONARY ARTERY W/O ANG PCTRS (7) Depression Code(s): F32.9 - MAJOR DEPRESSIVE DISORDER, SINGLE EPISODE, UNSPECIFIED (8) Diabetes mellitus Code(s): E11.9 - TYPE 2 DIABETES MELLITUS WITHOUT COMPLICATIONS (9) Hyperlipidemia Code(s): E78.5 - HYPERLIPIDEMIA, UNSPECIFIED
[2018-01-11] MEDS: CEFAZOLIN 2 GM in SODIUM CHLORIDE 100 ML IVPB SCH ×3 (01:34→17:38)
[2018-01-11] MEDS: INSULIN SLIDING SCALE (NOVOLOG) 1 VIAL SQ SCH ×4 (06:49→22:21)
[2018-01-11] MEDS: INSULIN (LEVEMIR) 100 UNITS/ML UNITS SQ SCH ×2 (06:54→22:20)
[2018-01-11] MEDS: HEPARIN NA (PORCINE) 5,000 UNITS/ML 1ML VIAL SQ SCH ×3 (06:54→22:20)
--- NOTE | 2018-01-11 09:49 | PN ---
Progress Note, Physician History of Present Illness: Pt w/o fever, CP, cg, SOB, abd pain, leg pain. Pt with left knee pain, on and off. - Current Medication List Current Medications: Active Medications Acetaminophen (Tylenol -) 650 mg PO Q6H PRN PRN Reason: PAIN 1-3 Last Admin: 01/10/18 21:50 Dose: 650 mg Aspirin (Asa -) 81 mg PO DAILY [facility] Last Admin: 01/10/18 09:22 Dose: 81 mg Atorvastatin Calcium (Lipitor -) 80 mg PO HS [facility] Last Admin: 01/10/18 21:40 Dose: 80 mg Clopidogrel Bisulfate (Plavix -) 75 mg PO DAILY [facility] Last Admin: 01/10/18 09:22 Dose: 75 mg Heparin Sodium (Porcine) (Heparin -) 5,000 unit SQ TID [facility] Last Admin: 01/11/18 06:54 Dose: 5,000 unit Cefazolin Sodium 2 gm/ Sodium (Chloride) 100 mls @ 200 mls/hr IVPB Q8H-IV [facility] Last Admin: 01/11/18 01:34 Dose: 200 mls/hr Insulin Aspart (Novolog Vial Sliding Scale -) 0 - 10 vial SQ ACHS [facility]; Protocol Last Admin: 01/11/18 06:49 Dose: Not Given Insulin Detemir (Levemir Vial) 7 units SQ BID@0700,2200 [facility] Last Admin: 01/11/18 06:54 Dose: 7 units Lisinopril (Prinivil) 2.5 mg PO DAILY [facility] Last Admin: 01/10/18 09:28 Dose: Not Given Ondansetron HCl (Zofran Injection) 4 mg IVPUSH Q8H PRN PRN Reason: NAUSEA Last Admin: 01/05/18 16:23 Dose: 4 mg Polyethylene Glycol (Miralax (For Daily Use) -) 17 gm PO BID [facility] Last Admin: 01/10/18 21:41 Dose: Not Given Primidone (Mysoline -) 500 mg PO BID [facility] Last Admin: 01/10/18 21:41 Dose: 500 mg Silver Sulfadiazine (Silvadene -) 1 applic TP DAILY [facility] Last Admin: 01/10/18 09:23 Dose: 1 applic Silver Sulfadiazine (Silvadene -) 1 applic TP DAILY [facility]; Protocol Last Admin: 10/28/18 09:22 Dose: 1 applic - Objective Vital Signs: Vital Signs Temperature 98.6 F 01/11/18 06:00 Pulse Rate 77 01/11/18 06:00 Respiratory Rate 18 01/11/18 06:00 Blood Pressure 119/58 L 01/11/18 06:00 O2 Sat by Pulse Oximetry (%) 95 01/10/18 09:00 Cardiovascular: Yes: Regular Rate and Rhythm, S1, S2 Respiratory: Yes: Regular, CTA Bilaterally. No: Rales Gastrointestinal: Yes: Normal Bowel Sounds, Soft. No: Tenderness Extremities: Yes: Other (left knee drainage) Edema: No Neurological: Yes: Alert, Oriented Labs: CBC, BMP 01/10/18 07:15 01/10/18 07:15 INR, PTT INR 1.16 (0.83-1.09) H 12/30/17 05:05 Problem List - Problems (1) DKA (diabetic ketoacidoses) Code(s): E13.10 - OTH DIABETES MELLITUS WITH KETOACIDOSIS WITHOUT COMA Qualifiers: Diabetes mellitus type: type 1 Diabetes mellitus complication detail: without coma Qualified Code(s): E10.10 - Type 1 diabetes mellitus with ketoacidosis without coma (2) Lactic acidosis Code(s): E87.2 - ACIDOSIS (3) Diabetes mellitus Code(s): E11.9 - TYPE 2 DIABETES MELLITUS WITHOUT COMPLICATIONS (4) Hyperkalemia Code(s): E87.5 - HYPERKALEMIA (5) Hypokalemia Code(s): E87.6 - HYPOKALEMIA (6) CAD (coronary artery disease) Code(s): I25.10 - ATHSCL HEART DISEASE OF [place] CORONARY ARTERY W/O ANG PCTRS (7) COPD (chronic obstructive pulmonary disease) Code(s): J44.9 - CHRONIC OBSTRUCTIVE PULMONARY DISEASE, UNSPECIFIED (8) Leg ulcer, left Code(s): L97.929 - NON-PRS CHRONIC ULC UNSP PRT OF L LOW LEG W UNSP SEVERITY (9) Wound infection complicating hardware Code(s): T84.7XXA - INFECT/INFLM REACT DUE TO OTH INT ORTH PROSTH DEV/GRFT, INIT Qualifiers: Encounter type: initial encounter Qualified Code(s): T84.7XXA - Infection and inflammatory reaction due to other internal orthopedic prosthetic devices, implants and grafts, initial encounter (10) Dehydration Code(s): E86.0 - DEHYDRATION (11) Essential tremor Code(s): G25.0 - ESSENTIAL TREMOR (12) Diabetic gastroparesis Code(s): E11.43 - TYPE 2 DIABETES W DIABETIC AUTONOMIC (POLY)NEUROPATHY; K31.84 - GASTROPARESIS (13) Hypophosphatasia Code(s): E83.39 - OTHER DISORDERS OF PHOSPHORUS METABOLISM (14) Hypoalbuminemia Code(s): E88.09 - OTH DISORDERS OF PLASMA-PROTEIN METABOLISM, NEC (15) Anemia Code(s): D64.9 - ANEMIA, UNSPECIFIED (16) Fecal retention Code(s): K59.00 - CONSTIPATION, UNSPECIFIED (17) Malnutrition of moderate degree Code(s): E44.0 - MODERATE PROTEIN-CALORIE MALNUTRITION Assessment/Plan Admitted to ICU, transferred to medical floor. Off Insulin drip CCM, ID , Cardio, Ortho, Endo consults are appreciated. To monitor H/H ( is trending down) To f/u BGM values. Bone Scan report ( was reviewed with Dr. Plummer) is c/w septic arthritis. Our community health specialist, Celeste, called Dr. Wellington (from [facility]) tremainein left message with his company secretary to call me back. DVT proph PT eval AM labs Case was d/w pt's nurse.
[2018-01-11] MEDS ORDERED: PT OWN MED DRAWER 7, Y5N ONE ×3 (09:52→17:37)
[2018-01-11] MEDS: CLOPIDOGREL BISULFATE 75 MG TABLET (FP) PO SCH (11:00)
[2018-01-11] MEDS: LISINOPRIL 5 MG TABLET (FP) PO SCH (11:00)
[2018-01-11] MEDS: ASPIRIN 81 MG CHEWABLE TABLETS PO SCH (11:00)
[2018-01-11] MEDS: ACETAMINOPHEN 325 MG TABLET (FP) PO PRN (11:01)
[2018-01-11] MEDS: POLYETHYLENE GLYCOL 3350 119 GM BTL PO SCH ×2 (11:02→22:21)
[2018-01-11] MEDS: PRIMIDONE 250 MG TABLET PO SCH ×2 (11:03→22:20)
[2018-01-11] MEDS: SILVER SULFADIAZINE 1% TOP CREAM 50 GM JAR TP SCH ×2 (11:04→11:05)
--- NOTE | 2018-01-11 13:11 | PN ---
Progress Note, Physician History of Present Illness: Pt seen and examined in the ICU. Briefly, 57yo female with h/o TBI with paraplegia, IDDM, CAD s/p CABG, sacral ulcers who was admitted with hyperglycemia on fingersticks. Found to be in DKA with anion gap 22. States compliance with insulin although pt poor historian. No fevers, chills. No cough or chest pain. +polyuria but without dysuria. PMH ASHD s/p 3 2005 HTN Hyperlipidemia IDDM - Current Medication List Current Medications: Active Medications Acetaminophen (Tylenol -) 650 mg PO Q6H PRN PRN Reason: PAIN 1-3 Last Admin: 01/11/18 11:01 Dose: 650 mg Aspirin (Asa -) 81 mg PO DAILY [facility] Last Admin: 01/11/18 11:00 Dose: 81 mg Atorvastatin Calcium (Lipitor -) 80 mg PO HS [facility] Last Admin: 01/10/18 21:40 Dose: 80 mg Clopidogrel Bisulfate (Plavix -) 75 mg PO DAILY [facility] Last Admin: 01/11/18 11:00 Dose: 75 mg Heparin Sodium (Porcine) (Heparin -) 5,000 unit SQ TID [facility] Last Admin: 01/11/18 06:54 Dose: 5,000 unit Cefazolin Sodium 2 gm/ Sodium (Chloride) 100 mls @ 200 mls/hr IVPB Q8H-IV [facility] Last Admin: 01/11/18 11:02 Dose: 200 mls/hr Insulin Aspart (Novolog Vial Sliding Scale -) 0 - 10 vial SQ ACHS [facility]; Protocol Last Admin: 01/11/18 11:12 Dose: Not Given Insulin Detemir (Levemir Vial) 7 units SQ BID@0700,2200 [facility] Last Admin: 01/11/18 06:54 Dose: 7 units Lisinopril (Prinivil) 2.5 mg PO DAILY [facility] Last Admin: 01/11/18 11:00 Dose: 2.5 mg Ondansetron HCl (Zofran Injection) 4 mg IVPUSH Q8H PRN PRN Reason: NAUSEA Last Admin: 01/05/18 16:23 Dose: 4 mg Polyethylene Glycol (Miralax (For Daily Use) -) 17 gm PO BID [facility] Last Admin: 01/11/18 11:02 Dose: Not Given Primidone (Mysoline -) 500 mg PO BID [facility] Last Admin: 01/11/18 11:03 Dose: 500 mg Silver Sulfadiazine (Silvadene -) 1 applic TP DAILY [facility] Last Admin: 01/11/18 11:05 Dose: 1 applic Silver Sulfadiazine (Silvadene -) 1 applic TP DAILY [facility]; Protocol Last Admin: 01/11/18 11:04 Dose: 1 applic - Objective Vital Signs: Vital Signs Temperature 98 F 01/11/18 10:00 Pulse Rate 82 01/11/18 10:00 Respiratory Rate 18 01/11/18 10:00 Blood Pressure 113/52 L 01/11/18 10:00 O2 Sat by Pulse Oximetry (%) 95 01/10/18 09:00 Eyes: Yes: WNL, Conjunctiva Clear, EOM Intact HENT: Yes: WNL, Atraumatic, Normocephalic Neck: Yes: WNL, Supple, Trachea Midline Cardiovascular: Yes: WNL, Regular Rate and Rhythm Respiratory: Yes: WNL, Regular, CTA Bilaterally Gastrointestinal: Yes: WNL, Normal Bowel Sounds Genitourinary: Yes: WNL Musculoskeletal: Yes: WNL Extremities: Yes: WNL Edema: No Integumentary: Yes: WNL Neurological: Yes: WNL, Alert, Oriented ...Motor Strength: WNL Psychiatric: Yes: WNL Labs: CBC, BMP 01/10/18 07:15 01/10/18 07:15 INR, PTT INR 1.16 (0.83-1.09) H 12/30/17 05:05 Problem List - Problems (1) DKA (diabetic ketoacidoses) Code(s): E13.10 - OTH DIABETES MELLITUS WITH KETOACIDOSIS WITHOUT COMA Qualifiers: Diabetes mellitus type: type 1 Diabetes mellitus complication detail: without coma Qualified Code(s): E10.10 - Type 1 diabetes mellitus with ketoacidosis without coma (2) Hyperglycemia Code(s): R73.9 - HYPERGLYCEMIA, UNSPECIFIED (3) Lactic acidosis Code(s): E87.2 - ACIDOSIS (4) Wound infection complicating hardware Code(s): T84.7XXA - INFECT/INFLM REACT DUE TO OTH INT ORTH PROSTH DEV/GRFT, INIT Qualifiers: Encounter type: initial encounter Qualified Code(s): T84.7XXA - Infection and inflammatory reaction due to other internal orthopedic prosthetic devices, implants and grafts, initial encounter (5) Anemia Code(s): D64.9 - ANEMIA, UNSPECIFIED (6) Asthma Code(s): J45.909 - UNSPECIFIED ASTHMA, UNCOMPLICATED (7) Closed left hip fracture Code(s): S72.002A - FRACTURE OF UNSP PART OF NECK OF LEFT FEMUR, INIT (8) Corneal abrasion, left Code(s): S05.02XA - INJ CONJUNCTIVA AND CORNEAL ABRASION W/O FB, LEFT EYE, INIT Qualifiers: Encounter type: initial encounter Qualified Code(s): S05.02XA - Injury of conjunctiva and corneal abrasion without foreign body, left eye, initial encounter (9) Dehydration Code(s): E86.0 - DEHYDRATION (10) Diabetes mellitus Code(s): E11.9 - TYPE 2 DIABETES MELLITUS WITHOUT COMPLICATIONS (11) Diabetic gastroparesis Code(s): E11.43 - TYPE 2 DIABETES W DIABETIC AUTONOMIC (POLY)NEUROPATHY; K31.84 - GASTROPARESIS (12) Diabetic hypoglycemia Code(s): E11.649 - TYPE 2 DIABETES MELLITUS WITH HYPOGLYCEMIA WITHOUT COMA (13) Diarrhea Code(s): R19.7 - DIARRHEA, UNSPECIFIED (14) Essential tremor Code(s): G25.0 - ESSENTIAL TREMOR (15) Facial contusion Code(s): S00.83XA - CONTUSION OF OTHER PART OF HEAD, INITIAL ENCOUNTER Qualifiers: Encounter type: initial encounter Qualified Code(s): S00.83XA - Contusion of other part of head, initial encounter (16) Fall Code(s): W19.XXXA - UNSPECIFIED FALL, INITIAL ENCOUNTER (17) Fever Code(s): R50.9 - FEVER, UNSPECIFIED (18) Finger pain, left Code(s): M79.645 - PAIN IN LEFT FINGER(S) (19) Fracture of left tibia and fibula Code(s): S82.202A - UNSP FRACTURE OF SHAFT OF LEFT TIBIA, INIT FOR CLOS FX; S82.402A - UNSP FRACTURE OF SHAFT OF LEFT FIBULA, INIT FOR CLOS FX Qualifiers: Encounter type: initial encounter Fracture type: closed Qualified Code(s) : S82.202A - Unspecified fracture of shaft of left tibia, initial encounter for closed fracture (20) History of OH (myocardial infarction) Code(s): I25.2 - OLD MYOCARDIAL INFARCTION (21) Hyperkalemia Code(s): E87.5 - HYPERKALEMIA (22) Hypoglycemia Code(s): E16.2 - HYPOGLYCEMIA, UNSPECIFIED (23) Hypoglycemia due to insulin Code(s): E16.0 - DRUG-INDUCED HYPOGLYCEMIA WITHOUT COMA; T38.3X5A - ADVERSE EFFECT OF INSULIN AND ORAL HYPOGLYCEMIC DRUGS, INIT (24) Hypokalemia Code(s): E87.6 - HYPOKALEMIA (25) Hypomagnesemia Code(s): E83.42 - HYPOMAGNESEMIA (26) Hypophosphatasia Code(s): E83.39 - OTHER DISORDERS OF PHOSPHORUS METABOLISM (27) Hypoproteinemia Code(s): E77.8 - OTHER DISORDERS OF GLYCOPROTEIN METABOLISM (28) Hypothermia Code(s): T68.XXXA - HYPOTHERMIA, INITIAL ENCOUNTER (29) Hypothyroid Code(s): E03.9 - HYPOTHYROIDISM, UNSPECIFIED (30) IDDM (insulin dependent diabetes mellitus) Code(s): E11.9 - TYPE 2 DIABETES MELLITUS WITHOUT COMPLICATIONS; Z79.4 - INTERMEDIATE (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 OF INSULIN (31) Lethargy Code(s): R53.83 - OTHER FATIGUE (32) Leukocytosis Code(s): D72.829 - ELEVATED WHITE BLOOD CELL COUNT, UNSPECIFIED (33) Malnutrition Code(s): E46 - UNSPECIFIED PROTEIN-CALORIE MALNUTRITION (34) Nausea and vomiting Code(s): R11.2 - NAUSEA WITH VOMITING, UNSPECIFIED (35) Proximal humerus fracture Code(s): S42.209A - UNSP FRACTURE OF UPPER END OF UNSP HUMERUS, INIT FOR CLOS FX (36) Seizure Code(s): R56.9 - UNSPECIFIED CONVULSIONS (37) Shoulder pain, acute Code(s): M25.519 - PAIN IN UNSPECIFIED SHOULDER (38) Systemic inflammatory response syndrome (SIRS) Code(s): R65.10 - SIRS OF NON-INFECTIOUS ORIGIN W/O ACUTE ORGAN DYSFUNCTION (39) UTI (urinary tract infection) Code(s): N39.0 - URINARY TRACT INFECTION, SITE NOT SPECIFIED Qualifiers: Urinary tract infection type: acute cystitis Hematuria presence: with hematuria Qualified Code(s): N30.01 - Acute cystitis with hematuria (40) Unable to ambulate Code(s): R26.2 - DIFFICULTY IN WALKING, NOT ELSEWHERE CLASSIFIED (41) Urinary retention Code(s): R33.9 - RETENTION OF URINE, UNSPECIFIED (42) Weakness Code(s): R53.1 - WEAKNESS (43) CAD (coronary artery disease) Code(s): I25.10 - ATHSCL HEART DISEASE OF [place] CORONARY ARTERY W/O ANG PCTRS (44) COPD (chronic obstructive pulmonary disease) Code(s): J44.9 - CHRONIC OBSTRUCTIVE PULMONARY DISEASE, UNSPECIFIED (45) Diabetic autonomic neuropathy associated with diabetes mellitus due to underlying condition Code(s): E08.43 - DIAB DUE TO UNDRL COND W DIABETIC AUTONM (POLY)NEUROPATHY (46) Humeral head fracture Code(s): S42.293A - OTH DISP FX OF UPPER END OF UNSP HUMERUS, INIT FOR CLOS FX (47) Knee fracture, left Code(s): IHQ5459 - (48) Smoker Code(s): F17.200 - NICOTINE DEPENDENCE, UNSPECIFIED, UNCOMPLICATED Assessment/Plan - Problems (1) DKA (diabetic ketoacidoses) Assessment/Plan: On insulin, fluids; glucose better-controlled. Lisinopril 2.5 mg daily added. Keep Mg 2-2.4, PO4 2.5-4.9, and K 4-4.5. Code(s): E13.10 - OTH DIABETES MELLITUS WITH KETOACIDOSIS WITHOUT COMA Qualifiers: Diabetes mellitus type: type 1 Diabetes mellitus complication detail: without coma Qualified Code(s): E10.10 - Type 1 diabetes mellitus with ketoacidosis without coma (2) Lactic acidosis Assessment/Plan: On Ancef Code(s): E87.2 - ACIDOSIS (3) Leg ulcer, left Assessment/Plan: CTA LEs: results noted. f/u with vascular team, ID. Code(s): L97.929 - NON-PRS CHRONIC ULC UNSP PRT OF L LOW LEG W UNSP SEVERITY (4) Wound infection complicating hardware Assessment/Plan: f/u with orthopedics, vascular, ID . Code(s): T84.7XXA - INFECT/INFLM REACT DUE TO OTH INT ORTH PROSTH DEV/GRFT, INIT Qualifiers: Encounter type: initial encounter Qualified Code(s): T84.7XXA - Infection and inflammatory reaction due to other internal orthopedic prosthetic devices, implants and grafts, initial encounter (5) Closed left hip fracture Code(s): S72.002A - FRACTURE OF UNSP PART OF NECK OF LEFT FEMUR, INIT (6) CAD (coronary artery disease) Assessment/Plan: Hx 3VD-->coronary stents (pt says she had an OH and CABG, but neither is apparently true). LDL cholesterol >140 mg/dL; increased atorvastatin to 80 mg daily; keep LDL cholestereol < 70 mg/dL. Code(s): I25.10 - ATHSCL HEART DISEASE OF [place] CORONARY ARTERY W/O ANG PCTRS (7) Depression Code(s): F32.9 - MAJOR DEPRESSIVE DISORDER, SINGLE EPISODE, UNSPECIFIED (8) Diabetes mellitus Assessment/Plan: Consider SGLP2 inhibitor because of potential benefit in lower risk for cardiac events (though caution with Jardience if PAD, due to possible increased risk for amputation). On lisinopril (HTN; DM; diastolic CHF). Code(s): E11.9 - TYPE 2 DIABETES MELLITUS WITHOUT COMPLICATIONS (9) Hyperlipidemia Assessment/Plan: LDL 149 mg/dL. Started atorvastatin 80 mg daily. LFTS presently WNL. Code(s): E78.5 - HYPERLIPIDEMIA, UNSPECIFIED
[2018-01-11] MEDS: DOCUSATE SODIUM 100 MG CAPSULE (FP) PO SCH (14:27)
[2018-01-11] MEDS: ACETAMINOPHEN WITH CODEINE 300MG/30MG TABLET PO PRN (17:27)
[2018-01-11] MEDS: ATORVASTATIN CA 80 MG TABLET (FP) PO SCH (22:20)
[2018-01-12] MEDS: CEFAZOLIN 2 GM/D5W 2 GM/50 ML ML IVPB SCH ×3 (02:46→17:38)
[2018-01-12] MEDS: CEFAZOLIN 2 GM in SODIUM CHLORIDE 100 ML IVPB SCH (02:47)
[2018-01-12] MEDS ORDERED: DEXTROSE 50%-WATER 25 GM/50 ML DISP.SYRIN ONE (06:39)
[2018-01-12] MEDS: DEXTROSE 50%-WATER 25 GM/50 ML DISP.SYRIN IVPUSH ONE ×2 (06:45→08:05)
[2018-01-12] MEDS: HEPARIN NA (PORCINE) 5,000 UNITS/ML 1ML VIAL SQ SCH ×3 (06:52→23:06)
[2018-01-12] MEDS: INSULIN (LEVEMIR) 100 UNITS/ML UNITS SQ SCH ×2 (06:53→23:12)
[2018-01-12] MEDS: INSULIN SLIDING SCALE (NOVOLOG) 1 VIAL SQ SCH ×4 (06:53→23:13)
[2018-01-12 08:07] LABS: HEMATOCRIT 29.5 % (32.4-45.2); HEMOGLOBIN 9.6 GM/dL (10.7-15.3); MCH 31.8 pg (25.7-33.7); MCHC 32.5 g/dl (32.0-36.0); MEAN CELL VOLUME 97.9 fl (80-96); PLATELET COUNT 574 K/MM3 (134-434); RBC 3.01 M/mm3 (3.60-5.2); RDW 15.2 % (11.6-15.6); WHITE BLOOD COUNT 7.2 K/mm3 (4.0-10.0)
[2018-01-12 08:32] LABS: ALK PHOS 122 U/L (45-117); ANION GAP 12 MMOL/L (8-16); BILIRUBIN,TOTAL 0.2 mg/dL (0.2-1); BLOOD UREA NITROGEN 11 mg/dL (7-18); CALCIUM 7.8 mg/dL (8.5-10.1); CHLORIDE 103 mmol/L (98-107); CO2 24 mmol/L (21-32); CREATININE 0.4 mg/dL (0.55-1.3); GLUCOSE,RANDOM 104 mg/dL (74-106); POTASSIUM 4.9 mmol/L (3.5-5.1); SGOT/AST 84 U/L (15-37); SGPT/ALT 28 U/L (13-61); SODIUM 139 mmol/L (136-145); TOT PROT 5.6 g/dl (6.4-8.2)
[2018-01-12] MEDS ORDERED: PT OWN MED DRAWER 7, Y5N ONE ×3 (09:02→21:26)
[2018-01-12] MEDS: LISINOPRIL 5 MG TABLET (FP) PO SCH (09:42)
[2018-01-12] MEDS: ASPIRIN 81 MG CHEWABLE TABLETS PO SCH (09:43)
[2018-01-12] MEDS: PRIMIDONE 250 MG TABLET PO SCH ×2 (09:43→23:06)
[2018-01-12] MEDS: DOCUSATE SODIUM 100 MG CAPSULE (FP) PO SCH (09:43)
[2018-01-12] MEDS: CLOPIDOGREL BISULFATE 75 MG TABLET (FP) PO SCH (09:43)
[2018-01-12] MEDS: SILVER SULFADIAZINE 1% TOP CREAM 50 GM JAR TP SCH ×2 (09:44→09:45)
[2018-01-12] MEDS: POLYETHYLENE GLYCOL 3350 119 GM BTL PO SCH ×2 (09:45→23:06)
[2018-01-12] MEDS ORDERED: INSULIN (NOVOLOG) ASPART 100 UNITS/ML 10ML VIAL ONE (11:44)
[2018-01-12] MEDS: ACETAMINOPHEN WITH CODEINE 300MG/30MG TABLET PO PRN (11:53)
--- NOTE | 2018-01-12 14:25 | DS ---
Physical Examination Vital Signs: Vital Signs Temperature 97.9 F 01/12/18 06:00 Pulse Rate 73 01/12/18 06:00 Respiratory Rate 20 01/12/18 06:00 Blood Pressure 98/47 L 01/12/18 06:00 O2 Sat by Pulse Oximetry (%) 97 01/11/18 21:00 Findings/Remarks: Pt w/o SOB, CP, abd pain,N, V. Pt with left knee pain, on and off, more when walking on it (with PT). We called again Dr. Wellington office and I spoke with 'harinder Wellington Business Analytics Intern (MAID HOUSEKEEPER) ; case was reviewed (including left knee drainage culture report, left knee CT scan and Bone scan) and I recommended transfer for evaluation and treatment for septic arthritis ( in this pt with left knee hardware). He want to run the case by Dr. Wellington and would call us back. Pt is aware about about and she agrees with transfer to [facility] for further evaluation and treatment. Time spent for coordination of patient's care: over 50 minutes. Constitutional: Yes: No Distress, Calm Cardiovascular: Yes: Regular Rate and Rhythm, Murmur, S1, S2 Respiratory: Yes: Regular, CTA Bilaterally. No: Rales Gastrointestinal: Yes: Normal Bowel Sounds, Soft. No: Tenderness Extremities: Yes: Other (left knee with drainage) Edema: No Neurological: Yes: Alert, Oriented Labs: CBC, BMP 01/12/18 07:40 01/12/18 07:40 Discharge Summary Reason For Visit: DIABETIC KETOACIDOSIS Current Active Problems CAD (coronary artery disease) (Acute) DKA (diabetic ketoacidoses) (Acute) Depression (Acute) Fecal retention (Acute) Hyperglycemia (Acute) Hyperlipidemia (Acute) Hypoalbuminemia (Acute) Lactic acidosis (Acute) Leg ulcer, left (Acute) Wound infection complicating hardware (Acute) Procedures: Principal: Left leg CT scan. Bone scan. Abd XR. CXR Hospital Course: Pt came to ER with high glucose ( over 400), found to be in DKA, admitted to ICU ; patient was noticed to have left knee purulent drainage. Pt wa sstarted on IV abtx, local culture was + for MSSA. Pt had Left leg CT Scan, then Bone scan ( consistent with left knee septic arthritis). Pt was seen in consult by Pulm/ CCM (Dr. Licea), ID( Dr. Plummer), Cardio (Dr. Shaver/ Blanche), Ortho ( Dr. Underwood/ Иван). Pt to be transferred to [facility] under Dr. Wellington care for further evaluation and treatment). Condition: Fair - Instructions Diet, Activity, Other Instructions: DIet: ADA, Low salt, Low cholesterol Disposition: TRANSFER ACUTE CARE/OTHER HOSP - Home Medications Comprehensive Discharge Medication List: Ambulatory Orders
[2018-01-12] MEDS: ATORVASTATIN CA 80 MG TABLET (FP) PO SCH (23:06)
[2018-01-13] MEDS: CEFAZOLIN 2 GM/D5W 2 GM/50 ML ML IVPB SCH ×2 (02:47→09:29)
[2018-01-13] MEDS: ACETAMINOPHEN WITH CODEINE 300MG/30MG TABLET PO PRN ×2 (05:13→09:35)
[2018-01-13] MEDS: HEPARIN NA (PORCINE) 5,000 UNITS/ML 1ML VIAL SQ SCH ×2 (06:12→14:30)
[2018-01-13] MEDS: INSULIN SLIDING SCALE (NOVOLOG) 1 VIAL SQ SCH ×2 (06:12→12:35)
[2018-01-13] MEDS: INSULIN (LEVEMIR) 100 UNITS/ML UNITS SQ SCH (06:35)
[2018-01-13] MEDS ORDERED: PT OWN MED DRAWER 7, Y5N ONE (09:20)
--- NOTE | 2018-01-13 09:21 | PN ---
Progress Note, Physician Chief Complaint: Pt alert & oriented x3; good appetite; has no complaints. History of Present Illness: 57-year-old white female with history of insulin-dependent diabetes, paraplegia , CAD with 3VD-->multiple stents, chronic wound to the left tyler brought in by ambulance for hyperglycemia with home fingerstick greater than 400.Patient was seen earlier in week by MD and was sent home on Keflex for localized tyler chronic wound. There is no increased redness at the site and no fever was reported at home. patient was send home on cephalexin . Patient denies any fevers/chills reports not being able to eat yesterday. Denies nausea, vomiting, abdominal pain, chest pain,. - Current Medication List Current Medications: Active Medications Acetaminophen (Tylenol -) 650 mg PO Q6H PRN PRN Reason: PAIN 1-3 Last Admin: 01/11/18 11:01 Dose: 650 mg Acetaminophen/Codeine Phosphate (Tylenol # 3 -) 1 tab PO Q4H PRN PRN Reason: PAIN LEVEL 6-10 Last Admin: 01/13/18 05:13 Dose: 1 tab Aspirin (Asa -) 81 mg PO DAILY [facility] Last Admin: 01/12/18 09:43 Dose: 81 mg Atorvastatin Calcium (Lipitor -) 80 mg PO HS [facility] Last Admin: 01/12/18 23:06 Dose: 80 mg Clopidogrel Bisulfate (Plavix -) 75 mg PO DAILY [facility] Last Admin: 01/12/18 09:43 Dose: 75 mg Docusate Sodium (Colace -) 200 mg PO DAILY [facility] Last Admin: 01/12/18 09:43 Dose: 200 mg Heparin Sodium (Porcine) (Heparin -) 5,000 unit SQ TID [facility] Last Admin: 01/13/18 06:12 Dose: Not Given Cefazolin Sodium/Dextrose (Ancef 2 Gm Premixed Ivpb -) 2 gm in 50 mls @ 100 mls /hr IVPB Q8H-IV [facility] Stop: 01/15/18 02:29 Last Admin: 01/13/18 02:47 Dose: 100 mls/hr Insulin Aspart (Novolog Vial Sliding Scale -) 0 - 10 vial SQ ACHS [facility]; Protocol Last Admin: 01/13/18 06:12 Dose: Not Given Insulin Detemir (Levemir Vial) 7 units SQ BID@0700,2200 [facility] Last Admin: 01/13/18 06:35 Dose: Not Given Lisinopril (Prinivil) 2.5 mg PO DAILY [facility] Last Admin: 01/12/18 09:42 Dose: 2.5 mg Ondansetron HCl (Zofran Injection) 4 mg IVPUSH Q8H PRN PRN Reason: NAUSEA Last Admin: 01/05/18 16:23 Dose: 4 mg Polyethylene Glycol (Miralax (For Daily Use) -) 17 gm PO BID [facility] Last Admin: 01/12/18 23:06 Dose: Not Given Primidone (Mysoline -) 500 mg PO BID [facility] Last Admin: 01/12/18 23:06 Dose: 500 mg Silver Sulfadiazine (Silvadene -) 1 applic TP DAILY [facility] Last Admin: 01/12/18 09:44 Dose: 1 applic Silver Sulfadiazine (Silvadene -) 1 applic TP DAILY [facility]; Protocol Last Admin: 01/12/18 09:45 Dose: 1 applic - Objective Vital Signs: Vital Signs Temperature 98.6 F 01/13/18 07:00 Pulse Rate 71 01/13/18 07:00 Respiratory Rate 18 01/13/18 07:00 Blood Pressure 99/42 L 01/13/18 07:00 O2 Sat by Pulse Oximetry (%) 97 01/12/18 21:00 Labs: CBC, BMP 01/12/18 07:40 01/12/18 07:40 INR, PTT INR 1.16 (0.83-1.09) H 12/30/17 05:05 Problem List - Problems (1) DKA (diabetic ketoacidoses) Assessment/Plan: On insulin, fluids; glucose better-controlled. Lisinopril 2.5 mg daily added. Keep Mg 2-2.4, PO4 2.5-4.9, and K 4-4.5. Code(s): E13.10 - OTH DIABETES MELLITUS WITH KETOACIDOSIS WITHOUT COMA Qualifiers: Diabetes mellitus type: type 1 Diabetes mellitus complication detail: without coma Qualified Code(s): E10.10 - Type 1 diabetes mellitus with ketoacidosis without coma (2) Lactic acidosis Assessment/Plan: On Ancef Code(s): E87.2 - ACIDOSIS (3) Leg ulcer, left Assessment/Plan: CTA LEs: results noted. f/u with vascular team, ID. Code(s): L97.929 - NON-PRS CHRONIC ULC UNSP PRT OF L LOW LEG W UNSP SEVERITY (4) Wound infection complicating hardware Assessment/Plan: f/u with orthopedics, vascular, ID . Code(s): T84.7XXA - INFECT/INFLM REACT DUE TO OTH INT ORTH PROSTH DEV/GRFT, INIT Qualifiers: Encounter type: initial encounter Qualified Code(s): T84.7XXA - Infection and inflammatory reaction due to other internal orthopedic prosthetic devices, implants and grafts, initial encounter (5) Closed left hip fracture Code(s): S72.002A - FRACTURE OF UNSP PART OF NECK OF LEFT FEMUR, INIT (6) CAD (coronary artery disease) Assessment/Plan: Hx 3VD-->coronary stents (pt says she had an SD and CABG, but neither is apparently true). LDL cholesterol >140 mg/dL; increased atorvastatin to 80 mg daily; keep LDL cholestereol < 70 mg/dL. Code(s): I25.10 - ATHSCL HEART DISEASE OF [place] CORONARY ARTERY W/O ANG PCTRS (7) Depression Code(s): F32.9 - MAJOR DEPRESSIVE DISORDER, SINGLE EPISODE, UNSPECIFIED (8) Diabetes mellitus Assessment/Plan: Consider SGLP2 inhibitor because of potential benefit in lower risk for cardiac events (though caution with Jardience if PAD, due to possible increased risk for amputation). On lisinopril (HTN; DM; diastolic CHF). Code(s): E11.9 - TYPE 2 DIABETES MELLITUS WITHOUT COMPLICATIONS (9) Hyperlipidemia Assessment/Plan: LDL 149 mg/dL. Started atorvastatin 80 mg daily. LFTS presently WNL. Code(s): E78.5 - HYPERLIPIDEMIA, UNSPECIFIED
[2018-01-13] MEDS: ASPIRIN 81 MG CHEWABLE TABLETS PO SCH (09:30)
[2018-01-13] MEDS: CLOPIDOGREL BISULFATE 75 MG TABLET (FP) PO SCH (09:30)
[2018-01-13] MEDS: LISINOPRIL 5 MG TABLET (FP) PO SCH (09:30)
[2018-01-13] MEDS: POLYETHYLENE GLYCOL 3350 119 GM BTL PO SCH (09:30)
[2018-01-13] MEDS: DOCUSATE SODIUM 100 MG CAPSULE (FP) PO SCH (09:30)
[2018-01-13] MEDS: PRIMIDONE 250 MG TABLET PO SCH (09:30)
[2018-01-13] MEDS: SILVER SULFADIAZINE 1% TOP CREAM 50 GM JAR TP SCH ×2 (09:31)
--- NOTE | 2018-01-13 10:53 | PN ---
Progress Note, Physician History of Present Illness: Pt w/o fever, CP, cg, SOB, abd pain. Pt with left knee pain, on and off. - Current Medication List Current Medications: Active Medications Acetaminophen (Tylenol -) 650 mg PO Q6H PRN PRN Reason: PAIN 1-3 Last Admin: 01/11/18 11:01 Dose: 650 mg Acetaminophen/Codeine Phosphate (Tylenol # 3 -) 1 tab PO Q4H PRN PRN Reason: PAIN LEVEL 6-10 Last Admin: 01/13/18 09:35 Dose: 1 tab Aspirin (Asa -) 81 mg PO DAILY [facility] Last Admin: 01/13/18 09:30 Dose: 81 mg Atorvastatin Calcium (Lipitor -) 80 mg PO HS [facility] Last Admin: 01/12/18 23:06 Dose: 80 mg Clopidogrel Bisulfate (Plavix -) 75 mg PO DAILY [facility] Last Admin: 01/13/18 09:30 Dose: 75 mg Docusate Sodium (Colace -) 200 mg PO DAILY [facility] Last Admin: 01/13/18 09:30 Dose: 200 mg Heparin Sodium (Porcine) (Heparin -) 5,000 unit SQ TID [facility] Last Admin: 01/13/18 06:12 Dose: Not Given Cefazolin Sodium/Dextrose (Ancef 2 Gm Premixed Ivpb -) 2 gm in 50 mls @ 100 mls /hr IVPB Q8H-IV [facility] Stop: 01/15/18 02:29 Last Admin: 01/13/18 09:29 Dose: 100 mls/hr Insulin Aspart (Novolog Vial Sliding Scale -) 0 - 10 vial SQ ACHS [facility]; Protocol Last Admin: 01/13/18 06:12 Dose: Not Given Insulin Detemir (Levemir Vial) 7 units SQ BID@0700,2200 [facility] Last Admin: 01/13/18 06:35 Dose: Not Given Lisinopril (Prinivil) 2.5 mg PO DAILY [facility] Last Admin: 01/13/18 09:30 Dose: Not Given Ondansetron HCl (Zofran Injection) 4 mg IVPUSH Q8H PRN PRN Reason: NAUSEA Last Admin: 01/05/18 16:23 Dose: 4 mg Polyethylene Glycol (Miralax (For Daily Use) -) 17 gm PO BID [facility] Last Admin: 01/13/18 09:30 Dose: 17 grams Primidone (Mysoline -) 500 mg PO BID [facility] Last Admin: 01/13/18 09:30 Dose: 500 mg Silver Sulfadiazine (Silvadene -) 1 applic TP DAILY [facility] Last Admin: 01/13/18 09:31 Dose: 1 applic Silver Sulfadiazine (Silvadene -) 1 applic TP DAILY [facility]; Protocol Last Admin: 01/13/18 09:31 Dose: 1 applic - Objective Vital Signs: Vital Signs Temperature 98.6 F 01/13/18 07:00 Pulse Rate 71 01/13/18 07:00 Respiratory Rate 18 01/13/18 07:00 Blood Pressure 99/42 L 01/13/18 07:00 O2 Sat by Pulse Oximetry (%) 97 01/12/18 21:00 Constitutional: Yes: No Distress, Calm Cardiovascular: Yes: Regular Rate and Rhythm, S1, S2 Respiratory: Yes: Regular, CTA Bilaterally. No: Rales Gastrointestinal: Yes: Normal Bowel Sounds, Soft. No: Tenderness Edema: No Neurological: Yes: Alert, Oriented Labs: CBC, BMP 01/12/18 07:40 01/12/18 07:40 INR, PTT INR 1.16 (0.83-1.09) H 12/30/17 05:05 Problem List - Problems (1) DKA (diabetic ketoacidoses) Code(s): E13.10 - OTH DIABETES MELLITUS WITH KETOACIDOSIS WITHOUT COMA Qualifiers: Diabetes mellitus type: type 1 Diabetes mellitus complication detail: without coma Qualified Code(s): E10.10 - Type 1 diabetes mellitus with ketoacidosis without coma (2) Lactic acidosis Code(s): E87.2 - ACIDOSIS (3) Diabetes mellitus Code(s): E11.9 - TYPE 2 DIABETES MELLITUS WITHOUT COMPLICATIONS (4) Hyperkalemia Code(s): E87.5 - HYPERKALEMIA (5) Hypokalemia Code(s): E87.6 - HYPOKALEMIA (6) CAD (coronary artery disease) Code(s): I25.10 - ATHSCL HEART DISEASE OF [place] CORONARY ARTERY W/O ANG PCTRS (7) COPD (chronic obstructive pulmonary disease) Code(s): J44.9 - CHRONIC OBSTRUCTIVE PULMONARY DISEASE, UNSPECIFIED (8) Leg ulcer, left Code(s): L97.929 - NON-PRS CHRONIC ULC UNSP PRT OF L LOW LEG W UNSP SEVERITY (9) Wound infection complicating hardware Code(s): T84.7XXA - INFECT/INFLM REACT DUE TO OTH INT ORTH PROSTH DEV/GRFT, INIT Qualifiers: Encounter type: initial encounter Qualified Code(s): T84.7XXA - Infection and inflammatory reaction due to other internal orthopedic prosthetic devices, implants and grafts, initial encounter (10) Dehydration Code(s): E86.0 - DEHYDRATION (11) Essential tremor Code(s): G25.0 - ESSENTIAL TREMOR (12) Diabetic gastroparesis Code(s): E11.43 - TYPE 2 DIABETES W DIABETIC AUTONOMIC (POLY)NEUROPATHY; K31.84 - GASTROPARESIS (13) Hypophosphatasia Code(s): E83.39 - OTHER DISORDERS OF PHOSPHORUS METABOLISM (14) Hypoalbuminemia Code(s): E88.09 - OTH DISORDERS OF PLASMA-PROTEIN METABOLISM, NEC (15) Anemia Code(s): D64.9 - ANEMIA, UNSPECIFIED (16) Fecal retention Code(s): K59.00 - CONSTIPATION, UNSPECIFIED (17) Malnutrition of moderate degree Code(s): E44.0 - MODERATE PROTEIN-CALORIE MALNUTRITION Assessment/Plan Admitted to ICU for DKA, transferred to medical floor. Off Insulin drip CCM, ID , Cardio, Ortho, Endo consults are appreciated. To monitor H/H ( is trending down) To f/u BGM values. Bone Scan report ( was reviewed with Dr. Plummer) is c/w septic arthritis. Pending bed available at [facility] for transfer. Cont IV abtx Pain control. DVT proph PT eval Case was d/w pt's nurse.
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
[2018-01-13 14:51] VITALS: BP 94/45; PULSE 74; TEMP 98.8
== END 2018-01-13 14:30 | disposition short-term general hospital (02) | DRG 638 ==
LOC: JER 01:55 → JERBED 05:34 → UNDOADMIN 06:08 → JERBED 06:08 → JICU 10:22 → J5S 01-01 00:20
PROVIDERS: ADMIT Internal Medicine; ATTEND Internal Medicine
DX: E10.10 Type 1 diabetes mellitus with ketoacidosis without coma (principal); E87.2 Acidosis; G82.20 Paraplegia, unspecified; T84.7XXA Infection and inflammatory reaction due to other internal orthopedic prosthetic devices, implants and grafts, initial encounter; E44.0 Moderate protein-calorie malnutrition; Z68.1 Body mass index [BMI] 19.9 or less, adult; I50.30 Unspecified diastolic (congestive) heart failure; M00.9 Pyogenic arthritis, unspecified; L97.828 Non-pressure chronic ulcer of other part of left lower leg with other specified severity; I25.10 Atherosclerotic heart disease of native coronary artery without angina pectoris; Z95.1 Presence of aortocoronary bypass graft; E03.9 Hypothyroidism, unspecified; I25.2 Old myocardial infarction; R56.9 Unspecified convulsions; J44.9 Chronic obstructive pulmonary disease, unspecified; E87.5 Hyperkalemia; E87.6 Hypokalemia; E86.0 Dehydration; G25.0 Essential tremor; Z87.820 Personal history of traumatic brain injury; E10.40 Type 1 diabetes mellitus with diabetic neuropathy, unspecified; L89.152 Pressure ulcer of sacral region, stage 2; F32.9 Major depressive disorder, single episode, unspecified; E10.43 Type 1 diabetes mellitus with diabetic autonomic (poly)neuropathy; K31.84 Gastroparesis; E83.39 Other disorders of phosphorus metabolism; E78.5 Hyperlipidemia, unspecified; D64.9 Anemia, unspecified; K59.00 Constipation, unspecified; I11.0 Hypertensive heart disease with heart failure; Z87.891 Personal history of nicotine dependence; Z79.4 Long term (current) use of insulin
CPT/HCPCS: 36415; 36600; 71045-TC-FY; 73590-TC-LT-FY; 73700-TC-RT; 74018-TC-FY; 78315-TC; 80048; 80053; 80061; 81003; 81015; 82009; 82010; 82803; 82962; 83036; 83605; 83615; 83721; 83735; 83930; 84100; 84443; 84484; 85025; 85027; 85044; 85610; 85651; 85730; 86140; 87040; 87070; 87086; 87186; 87205; 93005; 93010; 93306-TC; 97116-GP; 97161-GP; 99283-25; 99285-25; A9503; J1644; J7030

== ENCOUNTER 2018-02-26 19:37 | Emergency (ER) | payer OTHER ==
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
[2018-02-26] MEDS ORDERED: SODIUM CHLORIDE 0.9% 500 ML INFUS.BAG IV ONE (19:48)
[2018-02-26 20:05] VITALS: BMI 26.5
[2018-02-26 20:55] LABS: BASO % 0.8 % (0-2.0); EOS % 0.9 % (0-4.5); HEMATOCRIT 30.3 % (32.4-45.2); HEMOGLOBIN 10.6 GM/dL (10.7-15.3); LYMPH % 26.5 % (8-40); MCH 35.9 pg (25.7-33.7); MCHC 35.1 g/dl (32.0-36.0); MEAN CELL VOLUME 102.4 fl (80-96); MEAN PLT VOLUME 6.8 fl (7.5-11.1); MONO % 6.1 % (3.8-10.2); NEUT % 65.7 % (42.8-82.8); PLATELET COUNT 444 K/MM3 (134-434); RBC 2.96 M/mm3 (3.60-5.2); RDW 20.3 % (11.6-15.6); WHITE BLOOD COUNT 6.9 K/mm3 (4.0-10.0)
[2018-02-26 21:19] LABS: ALBUMIN 1.4 g/dl (3.4-5.0); ALK PHOS 124 U/L (45-117); ANION GAP 9 MMOL/L (8-16); BILIRUBIN,TOTAL 0.2 mg/dL (0.2-1); BLOOD UREA NITROGEN 24 mg/dL (7-18); CALCIUM 7.3 mg/dL (8.5-10.1); CHLORIDE 103 mmol/L (98-107); CO2 24 mmol/L (21-32); CREATININE 0.7 mg/dL (0.55-1.3); GLUCOSE,RANDOM 282 mg/dL (74-106); SGOT/AST 25 U/L (15-37); SGPT/ALT 18 U/L (13-61); SODIUM 136 mmol/L (136-145); TOT PROT 4.1 g/dl (6.4-8.2)
[2018-02-26] MEDS ORDERED: NYSTATIN POWDER 100,000 UNITS/GM - 15 GM TOPICAL POWDER TP ONE (22:22)
[2018-02-26] MEDS ORDERED: BACITRACIN 15 GM TUBE TOPICAL OINTMENT TP ONE (22:23)
[2018-02-27] MEDS ORDERED: BACITRACIN 0.9 GM PACKET ONE ×2 (00:41→01:35)
[2018-02-27 06:10] VITALS: BP 156/82; PULSE 84; TEMP 97.9
== END 2018-02-27 06:21 | disposition home or self-care (01) ==
LOC: JER 19:37
PROC: 3E0337Z Introduction of Electrolytic and Water Balance Substance into Peripheral Vein, Percutaneous Approach (ICD-10-PCS; principal; 2018-02-26)
DX: R05 Cough (principal); E77.8 Other disorders of glycoprotein metabolism; E46 Unspecified protein-calorie malnutrition; B49 Unspecified mycosis; Z87.891 Personal history of nicotine dependence; Z95.5 Presence of coronary angioplasty implant and graft; E11.9 Type 2 diabetes mellitus without complications; I10 Essential (primary) hypertension; E78.00 Pure hypercholesterolemia, unspecified
CPT/HCPCS: 36415; 80053; 82009; 85025; 93970-TC; 99282-25

== ENCOUNTER 2018-04-22 12:03 | Inpatient (IN) | payer OTHER ==
[2018-04-22] MEDS ORDERED: ACETAMINOPHEN 1000 MG/100 ML VIAL (NON FORMULARY) IVPB ONE (12:21)
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
[2018-04-22] MEDS ORDERED: ACETAMINOPHEN INJECTION 100 ML IVPB ONE (12:34)
--- NOTE | 2018-04-22 12:39 | PDOC ---
Attending Attestation - HPI HPI: 04/22/18 13:28 The patient is a 58 year old female with a significant past medical history of IDDM, left tib/fib fracture s/p ORIF 2015, prior admission for DKA 12/2017 - sent to surgeon at [facility] where bone scan displayed left knee septic arthritis, CAD , COPD, who presents to the emergency department today complaining of a fall one day ago. The patient states she slipped in the bathtub a day ago and was there until her mobile home installer came and found her there. She denies LOC. She reports pain to her left shoulder and that she hit her right side of her head, where there is now dry blood. The patient also explains that she has had a productive cough well before the fall. The patient denies chest pain, shortness of breath, headache and dizziness. Denies fever, chills, nausea, vomit, diarrhea and constipation. Denies dysuria, frequency, urgency and hematuria. Allergies: NKA Past surgical history: 3 2006 Social history: Past smoker. - Physicial Exam PE: 04/22/18 13:28 GENERAL: The patient is in no acute distress. HEAD: (+) Dry blood to right temporal. EYES: (+)2cm laceration with bruising at lateral right eyebrow. PERRLA, EOMI, sclera anicteric, conjunctiva clear. ENT: (+) Dry blood to right external auditory canal.Ears normal, nares patent, oropharynx clear without exudates. Moist mucous membranes. NECK: Normal range of motion, supple without lymphadenopathy, JVD, or masses. LUNGS: (+) Bilateral rhonchi. No wheezes, and no crackles. HEART:Regular rate and rhythm, normal S1 and S2 without murmur, rub or gallop. ABDOMEN: Soft, nontender, normoactive bowel sounds. No guarding, no rebound. No masses palpable. EXTREMITIES: (+) left knee surgical scar healing, no swelling. Normal range of motion, no edema. No clubbing or cyanosis. No erythema, or tenderness. NEUROLOGICAL: Cranial nerves II through XII grossly intact. Normal speech. No focal neurological deficits. MUSCULOSKELETAL: Back non-tender to palpation, no CVA tenderness SKIN: Warm, Dry, normal turgor, no rashes or lesions noted. - Medical Decision Making 04/22/18 17:[address] Starr, awaiting call back. <Queta Barbosa - Last Filed: 04/22/18 17:09> - Resident Resident Name: Janusz Lux - ED Attending Attestation I have performed the following: I have examined & evaluated the patient, The case was reviewed & discussed with the resident, I agree w/resident's findings & plan, Exceptions are as noted - Medical Decision Making 04/22/18 13:17 Laboratory Tests 02/26/18 04/22/18 20:39 12:00 WBC 6.9 7.6 Hgb 10.6 L 11.6 Hct 30.3 L 33.6 Plt Count 444 H D 225 D EKG - NSR rate of 84 bpm, axis nml, no st elevation or depression, t waves upright 04/22/18 13:39 Laboratory Tests 04/22/18 04/22/18 12:00 12:00 VBG pH 7.43 H D POC VBG pCO2 37.4 L D POC VBG pO2 45.6 D Mixed VBG HCO3 24.2 Sodium 136 Potassium 3.9 Chloride 100 Carbon Dioxide 26 BUN 28 H Creatinine 0.8 Random Glucose 290 H AST 464 H ALT 480 H CK-MB (CK-2) < 1.0 Troponin I < 0.02 04/22/18 14:24 Laboratory Tests 04/22/18 04/22/18 12:00 12:50 Lactic Acid 2.4 H* Acetone, Qual Negative L 04/22/18 17:[address] Gato Starr Case reviewed with ICU resident Clinical IMpression: Influenza, initial presentation Pneumonia, initial presentation Sepsis, initial presentation <Michaelle Flores - Last Filed: 04/22/18 17:44> *DC/Admit/Observation/Transfer <Queta Barbosa - Last Filed: 04/22/18 17:09> - Discharge Dispostion Decision to Admit order: Yes <Michaelle Flores - Last Filed: 04/22/18 17:44> Diagnosis at time of Disposition: Sepsis Qualifiers: Sepsis type: sepsis due to unspecified organism Qualified Code(s): A41.9 - Sepsis, unspecified organism - Discharge Dispostion Condition at time of disposition: Guarded Attestations - Attestations 04/22/18 13:28 Documentation prepared by Queta Barbosa, acting as director biomedical engineering for Michaelle Flores MD. <Queta Barbosa - Last Filed: 04/22/18 17:09>
[2018-04-22] MEDS ORDERED: SODIUM CHLORIDE 1,000 ML IV STA ×2 (13:02→13:53)
[2018-04-22 13:11] LABS: VENOUS PC02 37.4 mmHg (38-52); VENOUS PH 7.43 (7.32-7.42); VENOUS PO2 45.6 mmHg (28-48)
[2018-04-22 13:12] LABS: BASO % 0.2 % (0-2.0); EOS % 0.1 % (0-4.5); HEMATOCRIT 33.6 % (32.4-45.2); HEMOGLOBIN 11.6 GM/dL (10.7-15.3); LYMPH % 16.4 % (8-40); MCH 35.6 pg (25.7-33.7); MCHC 34.6 g/dl (32.0-36.0); MEAN PLT VOLUME 9.2 fl (7.5-11.1); MONO % 4.9 % (3.8-10.2); NEUT % 78.4 % (42.8-82.8); PLATELET COUNT 225 K/MM3 (134-434); RBC 3.27 M/mm3 (3.60-5.2); RDW 13.2 % (11.6-15.6); WHITE BLOOD COUNT 7.6 K/mm3 (4.0-10.0)
[2018-04-22 13:35] LABS: ALBUMIN 2.5 g/dl (3.4-5.0); ALK PHOS 372 U/L (45-117); ANION GAP 10 MMOL/L (8-16); BILIRUBIN,TOTAL 0.7 mg/dL (0.2-1); BLOOD UREA NITROGEN 28 mg/dL (7-18); CALCIUM 7.7 mg/dL (8.5-10.1); CHLORIDE 100 mmol/L (98-107); CO2 26 mmol/L (21-32); CREATININE 0.8 mg/dL (0.55-1.3); GLUCOSE,RANDOM 290 mg/dL (74-106); POTASSIUM 3.9 mmol/L (3.5-5.1); SGOT/AST 464 U/L (15-37); SGPT/ALT 480 U/L (13-61); SODIUM 136 mmol/L (136-145); TOT PROT 6.2 g/dl (6.4-8.2)
[2018-04-22 14:09] LABS: INR 1.26 (0.83-1.09); PROTHROMBIN TIME (PATIENT) 14.9 SEC (9.7-13.0)
[2018-04-22 14:12] LABS: ACTIVATED PTT 31.7 SECONDS (25.2-36.5)
[2018-04-22] MEDS ORDERED: VANCOMYCIN 1 GM in D5W (PRE-DOCKED) 1,000 MG/250 ML IVPB ONE (15:02)
[2018-04-22] MEDS ORDERED: PIPERACILLIN/TAZOB 3.375 GM 3.375 GM in DEXTROSE 5%-WATER - 50 ML IVPB ONE (15:02)
[2018-04-22 15:29] LABS: ANISOCYTOSIS 1+; MACROCYTOSIS 1+
[2018-04-22] MEDS ORDERED: PIPERACILLIN/TAZOB 3.375 GM 3.375 GM/50 ML BAG IVPB ONE (15:46)
[2018-04-22] MEDS ORDERED: VANCOMYCIN 1 GRAM (PRE-DOCKED) 1,000 MG/250 ML BAG IVPB ONE (15:46)
[2018-04-22 16:52] LABS: URINE APPEARANCE CLOUDY; URINE BILIRUBIN NEGATIVE (<2.0 mg/dL); URINE COLOR AMBER; URINE GLUCOSE (UA) 3+ (NEGATIVE); URINE KETONE NEGATIVE (NEGATIVE); URINE LEUK ESTERASE NEGATIVE (NEGATIVE); URINE NITRITE NEGATIVE (NEGATIVE); URINE PROTEIN 1+ (NEGATIVE)
[2018-04-22 17:16] LABS: EPI CELLS RARE /HPF (FEW); URINE HYALINE CAST 4 /lpf; URINE MUCUS RARE
[2018-04-22] MEDS ORDERED: NOREPINEPHRINE BITARTRATE 4 MG/4 ML ML IV ONE (19:08)
[2018-04-22] MEDS: NOREPINEPHRINE BITARTRATE 4,000 MCG in DEXTROSE 5%-WATER - 496 ML IV SCH (19:22)
--- NOTE | 2018-04-22 20:56 | HP ---
Admitting History and Physical - Primary Care Physician PCP: Flex Starr - Admission Chief Complaint: Fall History of Present Illness: Pt with significant PMHx/o CAD, [place] and s/p CABG, IDDM with episodes of DKA or Hypoglicemia, , Left leg (tibia and fibula) fracture s/p ORIF then hardware infection that required removal (at [facility]), unsteady gait came in for fall. Pt slipped and fell yesterday in the bathroom and was found today by her SUPERVISOR [employer] W[employer]. Pt also with dry cough for 5 days that got worse, associated with SOB for the last two days. History Source: Patient - Past Medical History LITERACY COORDINATOR: Yes: Seizure, Other (Essential tremor) Cardiovascular: Yes: CAD (with stents), [place] Pulmonary: Yes: COPD Gastrointestinal: Yes: Other (Vaginal Cancer) Heme/Onc: Yes: Anemia Endocrine: Yes: Diabetes Mellitus, Other (DKA, Hypoglicemia) Dermatology: Yes: Other (sacral ulcer) - Past Surgical History Past Surgical History: Yes: CABG (3 stents) - Smoking History Smoking history: Former smoker Have you smoked in the past 12 months: No Aproximately how many cigarettes per day: 4 If you are a former smoker, when did you quit?: 2015 - Alcohol/Substance Use Hx Alcohol Use: No History of Substance Use: reports: Marijuana - Social History ADL: Independent History of Recent Travel: No Home Medications - Allergies Allergies/Adverse Reactions: Allergies Allergy/AdvReac Type Severity Reaction Status Date / Time No Known Drug Allergies Allergy Verified 04/22/18 12:24 - Home Medications Home Medications: Ambulatory Orders Aspirin 81 mg PO DAILY 03/12/17 Clopidogrel Bisulfate [Plavix] 75 mg PO DAILY 03/12/17 Primidone [Mysoline] 250 mg PO BID 03/12/17 Insulin (Levemir) [Levemir Vial] 7 units SQ BID@0700,2200 units 01/12/18 Insulin Sliding Scale [Novolog Vial Sliding Scale -] 0 - 10 vial SQ ACHS units 01/12/18 Silver Sulfadiazine 1% Top Cr [Silvadene -] 1 applic TP DAILY jar 01/12/18 Acetaminophen [Tylenol .Regular Strength -] 975 mg PO Q6H PRN 02/27/18 Ascorbate Calcium [Vitamin C] 500 mg PO DAILY 02/27/18 Atorvastatin Ca [Lipitor] 20 mg PO HS 12/15/18 Capsaicin/Menthol [Salonpas Gel-Patch Hot] 1 each TP DAILY 02/27/18 Nystatin Ointment [Mycostatin Ointment -] 1 applic TP TID 02/27/18 Oxycodone HCl 10 mg PO Q4H PRN 02/27/18 Pantoprazole Sodium 40 mg PO DAILY 02/27/18 Sennosides [Senna] 17.2 mg PO DAILY 02/27/18 Triamcinolone 0.1% Cream [Aristocort] 1 applic TP BID 02/27/18 Family Disease History - Family Disease History Family Disease History: Heart Disease: Mother, Respiratory: Sister (asthma), Other: Father (volvulus) Review of Systems - Review of Systems Constitutional: reports: Chills. denies: Fever Eyes: denies: Blurred Vision, Eye Pain, Recent Change in Vision HENT: denies: Difficult Swallowing, Ear Discharge, Ear Pain, Epistaxis, Nasal Congestion, Throat Pain Neck: denies: Pain on Movement, Stiffness Cardiovascular: denies: Chest Pain, Edema, Palpitations Respiratory: reports: Cough (Dry), SOB. denies: Hemoptysis, Wheezing Gastrointestinal: denies: Abdominal Pain, Diarrhea, Nausea, Vomiting Genitourinary: denies: Burning, Discharge, Dysuria, Frequency Musculoskeletal: reports: Joint Pain (Left Shoulder- after the fall). denies: Back Pain Integumentary: denies: Bruising, Eczema, Rash Neurological: reports: Tremors (old), Unsteady Gait (old). denies: Change in LOC, Change in Speech, Numbness Endocrine: denies: Excessive Sweating, Intolerance to Cold Hematology/Lymphatic: denies: Easily Bruised, Excessive Bleeding Psychiatric: denies: Altered Sleep Pattern, Anxiety Physical Examination Vital Signs: Vital Signs Temperature 98.0 F 04/22/18 19:55 Pulse Rate 61 04/22/18 19:55 Respiratory Rate 28 H 04/22/18 19:55 Blood Pressure 87/61 L 04/22/18 19:55 O2 Sat by Pulse Oximetry (%) 88 L 04/22/18 19:55 Constitutional: Yes: No Distress, Calm Eyes: Yes: Conjunctiva Clear, EOM Intact HENT: Yes: Normocephalic, Other (Right eyebrow laceration and bruise. Dry oral mucosa.). No: Epistaxis, Rhinnorhea, Thrush Neck: Yes: Supple. No: Lymphadenopathy Cardiovascular: Yes: Regular Rate and Rhythm, S1, S2 Respiratory: Yes: Regular, Rhonchi (at bases). No: Wheezes Gastrointestinal: Yes: Normal Bowel Sounds, Soft. No: Tenderness ...Rectal Exam: Yes: Deferred Breast(s): Yes: Other (deferred) Extremities: No: Calf Tenderness, Cool, Cyanosis Edema: No Neurological: Yes: Alert, Oriented, Other (and sensory examination is symmetric in UE/L/ face) Psychiatric: Yes: Alert, Oriented Labs: CBC, BMP 04/22/18 12:00 04/22/18 12:00 Lactic Acid 2.4 Imaging - Results Chest X-ray: Report Reviewed Cat Scan: Report Reviewed Problem List - Problems (1) Sepsis Code(s): A41.9 - SEPSIS, UNSPECIFIED ORGANISM Qualifiers: Sepsis type: sepsis due to unspecified organism Qualified Code(s): A41.9 - Sepsis, unspecified organism (2) Septic shock Code(s): A41.9 - SEPSIS, UNSPECIFIED ORGANISM; R65.21 - SEVERE SEPSIS WITH SEPTIC SHOCK (3) PNA (pneumonia) Code(s): J18.9 - PNEUMONIA, UNSPECIFIED ORGANISM (4) Influenza A Code(s): J10.1 - FLU DUE TO OTH IDENT INFLUENZA VIRUS W OTH RESP MANIFEST (5) Elevated LFTs Code(s): R94.5 - ABNORMAL RESULTS OF LIVER FUNCTION STUDIES (6) CAD (coronary artery disease) Code(s): I25.10 - ATHSCL HEART DISEASE OF [place] CORONARY ARTERY W/O ANG PCTRS (7) Hx of CABG Code(s): Z95.1 - PRESENCE OF AORTOCORONARY BYPASS GRAFT (8) IDDM (insulin dependent diabetes mellitus) Code(s): E11.9 - TYPE 2 DIABETES MELLITUS WITHOUT COMPLICATIONS; Z79.4 - ELECTROPHYSIOLOGY TECH (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 OF INSULIN (9) Impaired gait Code(s): R26.9 - UNSPECIFIED ABNORMALITIES OF GAIT AND MOBILITY (10) Weakness Code(s): R53.1 - WEAKNESS (11) Humeral head fracture Code(s): S42.293A - OTH DISP FX OF UPPER END OF UNSP HUMERUS, INIT FOR CLOS FX (12) Knee fracture, left Code(s): GOC3279 - (13) Wound infection complicating hardware Code(s): T84.7XXA - INFECT/INFLM REACT DUE TO OTH INT ORTH PROSTH DEV/GRFT, INIT Qualifiers: Encounter type: initial encounter Qualified Code(s): T84.7XXA - Infection and inflammatory reaction due to other internal orthopedic prosthetic devices, implants and grafts, initial encounter (14) Essential tremor Code(s): G25.0 - ESSENTIAL TREMOR (15) Asthma Code(s): J45.909 - UNSPECIFIED ASTHMA, UNCOMPLICATED (16) COPD (chronic obstructive pulmonary disease) Code(s): J44.9 - CHRONIC OBSTRUCTIVE PULMONARY DISEASE, UNSPECIFIED Assessment/Plan Pt with hypotension, failed fluid resuscitation, Central line was placed in ER and pt to be started on Levophed. Pt to be admitted to ICU. CCM consult. IV abtx Tamiflu ID consult GI consult. IVF AM labs Case was d/w ER attending few times. Case was d/w pt's ER nurse. Prognosis: reserved. Time spent for managing pt's care: over 80 minutes
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
[2018-04-22] MEDS ORDERED: SODIUM CHLORIDE 1,000 ML IV SCH (21:45)
[2018-04-22] MEDS ORDERED: PT OWN MED DRAWER 7, Y5N ONE (22:13)
[2018-04-22] MEDS ORDERED: ALBUTEROL SO4 2.5/IPRATROPIUM 0.5 INH SOL 3 ML VIAL.NEB. NEB ONE (22:46)
[2018-04-22] MEDS ORDERED: SODIUM CHLORIDE 500 ML IV STA (22:54)
[2018-04-22] MEDS ORDERED: DEXTROSE 50%-WATER 25 GM/50 ML DISP.SYRIN ONE (23:36)
[2018-04-22] MEDS: OSELTAMIVIR PHOSPHATE 75 MG CAPSULE PO SCH (23:48)
[2018-04-22] MEDS: INSULIN SLIDING SCALE (NOVOLOG) 1 VIAL SQ SCH (23:48)
[2018-04-22] MEDS: PRIMIDONE 250 MG TABLET PO SCH (23:48)
[2018-04-23] MEDS ORDERED: ACETAMINOPHEN 1000 MG/100 ML VIAL (NON FORMULARY) IVPB ONE (03:56)
[2018-04-23] MEDS: INSULIN SLIDING SCALE (NOVOLOG) 1 VIAL SQ SCH ×4 (06:02→22:59)
[2018-04-23 06:26] LABS: BASO % 0.1 % (0-2.0); EOS % 0.1 % (0-4.5); HEMATOCRIT 28.7 % (32.4-45.2); HEMOGLOBIN 9.9 GM/dL (10.7-15.3); LYMPH % 12.8 % (8-40); MCH 35.8 pg (25.7-33.7); MCHC 34.6 g/dl (32.0-36.0); MEAN CELL VOLUME 103.5 fl (80-96); MEAN PLT VOLUME 8.8 fl (7.5-11.1); MONO % 2.5 % (3.8-10.2); NEUT % 84.5 % (42.8-82.8); PLATELET COUNT 202 K/MM3 (134-434); RBC 2.77 M/mm3 (3.60-5.2); RDW 12.7 % (11.6-15.6); WHITE BLOOD COUNT 5.1 K/mm3 (4.0-10.0)
[2018-04-23 07:16] LABS: ALK PHOS 265 U/L (45-117); ANION GAP 7 MMOL/L (8-16); BILIRUBIN,TOTAL 0.7 mg/dL (0.2-1); BLOOD UREA NITROGEN 17 mg/dL (7-18); CHLORIDE 106 mmol/L (98-107); CO2 23 mmol/L (21-32); CREATININE 0.4 mg/dL (0.55-1.3); GAMMA GLUTAMYL TRANSPEPTIDASE 923 U/L (5-85); GLUCOSE,RANDOM 77 mg/dL (74-106); POTASSIUM 3.4 mmol/L (3.5-5.1); SGOT/AST 207 U/L (15-37); SGPT/ALT 283 U/L (13-61); SODIUM 136 mmol/L (136-145)
[2018-04-23] MEDS ORDERED: NOREPINEPHRINE BITARTRATE 4 MG/4 ML ML IV ONE (07:33)
[2018-04-23] MEDS: NOREPINEPHRINE BITARTRATE 4,000 MCG in DEXTROSE 5%-WATER - 496 ML IV SCH ×2 (07:40→21:41)
[2018-04-23] MEDS ORDERED: SODIUM CHLORIDE 1,000 ML IV SCH (08:50)
--- NOTE | 2018-04-23 08:57 | CON.ID ---
Consult Consult Specialty:: infectious disease Referred by:: kendell Reason for Consultation:: fever, influenza A - History of Present Illness Chief Complaint: s/p fall at home History of Present Illness: 58 yo brittle diabetic s/p recent admission in December 2017 to [facility] with DKA, noted to have draining sinus from site of pror tib/fib fracture LLE with MSSA she was transferred to [facility] where she reports she had the hardware removed and was treated for 6 weeks with IV antibiotics she was discharged home from [facility] about a month ago she reports seeing her orthopaedist in f/u and reports leg has healed well has had cough and fever for a week no nausea or vomiting no diarrhea fell in bathtub and found by [facility] who called ambulance ct scans in ED no fractures/bleeds now febrile to 102 influenza A positive (reports getting influenza vaccine) cxray on admission negative, this am bilateral infiltrates left greater then right on pressors - History Source History Provided By: Patient, Medical Record Limitations to Obtaining History: Poor Historian - 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, Other (Essential tremor) Cardio/Vascular: Yes: CAD (with stents), [place] Pulmonary: Yes: COPD Gastrointestinal: Yes: Other (Vaginal Cancer) Endocrine: Yes: Diabetes Mellitus (since age 3), Other (DKA, Hypoglicemia) Dermatology: Yes: Other (sacral ulcer) Additional Medical History: neuropathy, tremors - Past Surgical History Past Surgical History: Yes: CABG (3 stents) Additional Surgical History: left tib/fib fracture with plate that was removed 12/31 for MSSA infection - Alcohol/Substance Use Hx Alcohol Use: No History of Substance Use: reports: Marijuana - Smoking History Smoking history: Former smoker Have you smoked in the past 12 months: No Aproximately how many cigarettes per day: 4 If you are a former smoker, when did you quit?: 2014 - Social History Usual Living Arrangement: With Child ADL: Support Services ([facility]) Occupation: not working Place of : [employer] [facility] History of Recent Travel: No Home Medications - Allergies Allergies/Adverse Reactions: Allergies Allergy/AdvReac Type Severity Reaction Status Date / Time No Known Drug Allergies Allergy Verified 04/22/18 12:24 - Home Medications Home Medications: Ambulatory Orders Aspirin 81 mg PO DAILY 03/12/17 Clopidogrel Bisulfate [Plavix] 75 mg PO DAILY 03/12/17 Primidone [Mysoline] 250 mg PO BID 03/12/17 Insulin (Levemir) [Levemir Vial] 7 units SQ BID@0700,2200 units 01/12/18 Insulin Sliding Scale [Novolog Vial Sliding Scale -] 0 - 10 vial SQ ACHS units 01/12/18 Silver Sulfadiazine 1% Top Cr [Silvadene -] 1 applic TP DAILY jar 01/12/18 Acetaminophen [Tylenol .Regular Strength -] 975 mg PO Q6H PRN 02/27/18 Ascorbate Calcium [Vitamin C] 500 mg PO DAILY 02/27/18 Atorvastatin Ca [Lipitor] 20 mg PO HS 02/27/18 Capsaicin/Menthol [Salonpas Gel-Patch Hot] 1 each TP DAILY 02/27/18 Nystatin Ointment [Mycostatin Ointment -] 1 applic TP TID 02/27/18 Oxycodone HCl 10 mg PO Q4H PRN 02/27/18 Pantoprazole Sodium 40 mg PO DAILY 02/27/18 Sennosides [Senna] 17.2 mg PO DAILY 02/27/18 Triamcinolone 0.1% Cream [Aristocort] 1 applic TP BID 02/27/18 Family Disease History - Family Disease History Family Disease History: Heart Disease: Mother, Respiratory: Sister (asthma), Other: Father (volvulus) Review of Systems - Review of Systems Constitutional: reports: Chills, Fever Eyes: reports: No Symptoms HENT: reports: No Symptoms Neck: reports: No Symptoms Cardiovascular: reports: No Symptoms Respiratory: reports: Cough Gastrointestinal: reports: No Symptoms. denies: Abdominal Pain, Nausea, Vomiting Genitourinary: reports: No Symptoms Physical Exam Vital Signs: Vital Signs Temperature 102 F H 04/23/18 08:02 Pulse Rate 80 04/23/18 08:02 Respiratory Rate 22 H 04/23/18 08:02 Blood Pressure 108/87 04/23/18 08:02 O2 Sat by Pulse Oximetry (%) 100 04/23/18 08:04 Constitutional: Yes: Thin Eyes: Yes: WNL HENT: No: Thrush Neck: Yes: Supple Cardiovascular: Yes: Regular Rate and Rhythm Respiratory: Yes: Diminished (at both bases) Gastrointestinal: Yes: Normal Bowel Sounds, Soft ...Rectal Exam: Yes: Deferred Musculoskeletal: Yes: WNL Extremities: Yes: WNL, Other (well healed incision RLE) Neurological: Yes: Tremors Psychiatric: Yes: Alert Labs: CBC, BMP 04/23/18 05:30 04/23/18 05:30 cultures pending Imaging - Results Chest X-ray: Report Reviewed, Image Reviewed (cxray yesterday no infiltrate, this am bilateral infiltrates right greater then left) Cat Scan: Report Reviewed (abd/pelvis) Problem List - Problems (1) Septic shock Code(s): A41.9 - SEPSIS, UNSPECIFIED ORGANISM; R65.21 - SEVERE SEPSIS WITH SEPTIC SHOCK (2) Influenza A Code(s): J10.1 - FLU DUE TO OTH IDENT INFLUENZA VIRUS W OTH RESP MANIFEST (3) PNA (pneumonia) Code(s): J18.9 - PNEUMONIA, UNSPECIFIED ORGANISM (4) Elevated LFTs Code(s): R94.5 - ABNORMAL RESULTS OF LIVER FUNCTION STUDIES Assessment/Plan septic shock s/p ivf on pressors influenza A cannot r/o pneumonia would cover for HCAP with vancomycin and zosyn legionella urinary antigen sputum culture nares for MRSA suspect abnl lfts due to hypotension-ct scan abd/pelvis no biliary pathology brittle DM poor nutritional status with albumin of 2 over 40 minutes spent in the care of this critically ill ICU patient prior records reviewed d/w ICU resident overall prognosis is guarded
[2018-04-23] MEDS ORDERED: VANCOMYCIN 1,000 MG in DEXTROSE 5%-WATER - 250 ML IVPB SCH (09:15)
[2018-04-23 09:21] LABS: ERYTHROCYTE SEDIMENTATION RATE 48 mm/hr (0-30)
--- NOTE | 2018-04-23 09:36 | PN ---
Progress Note, Physician History of Present Illness: Pt in ICU, still on Levophed and IVF (rate was decreased). Pt is feeling better; no chills, fever, cough, CP, palpitations, nausea, vomiting, abd pain. Pt tolerated breakfast well. - Current Medication List Current Medications: Active Medications Aspirin (Asa -) 81 mg PO DAILY [facility] Clopidogrel Bisulfate (Plavix -) 75 mg PO DAILY [facility] Norepinephrine Bitartrate 4, (000 mcg/ Dextrose) 500 mls @ 22.5 mls/hr IV TITR TAYLA; Protocol Last Admin: 04/23/18 07:40 Dose: 6 mcg/min, 45 mls/hr Sodium Chloride (Normal Saline -) 1,000 mls @ 50 mls/hr IV ASDIR TAYLA Last Admin: 04/23/18 09:20 Dose: 50 mls/hr Vancomycin HCl 750 mg/ (Dextrose) 250 mls @ 250 mls/hr IVPB Q12H TAYLA; Protocol Piperacillin Sod/Tazobactam (Sod 3.375 gm/ Dextrose) 50 mls @ 100 mls/hr IVPB Q8H-IV TAYLA; Protocol Insulin Aspart (Novolog Vial Sliding Scale -) 1 vial SQ ACHS [facility]; Protocol Last Admin: 04/23/18 06:02 Dose: Not Given Oseltamivir Phosphate (Tamiflu -) 75 mg PO BID [facility] Stop: 04/27/18 21:59 Last Admin: 04/22/18 23:48 Dose: 75 mg Pantoprazole Sodium (Protonix -) 40 mg PO DAILY [facility] Primidone (Mysoline -) 250 mg PO BID [facility] Last Admin: 04/22/18 23:48 Dose: 250 mg Senna (Senna -) 2 tab PO DAILY [facility] Silver Sulfadiazine (Silvadene -) 1 applic TP DAILY [facility] - Objective Vital Signs: Vital Signs Temperature 102 F H 04/23/18 08:02 Pulse Rate 80 04/23/18 08:02 Respiratory Rate 22 H 04/23/18 08:02 Blood Pressure 108/87 04/23/18 08:02 O2 Sat by Pulse Oximetry (%) 100 04/23/18 08:04 Constitutional: Yes: No Distress, Calm, Other Cardiovascular: Yes: Regular Rate and Rhythm, S1, S2 Respiratory: Yes: Regular, Rhonchi (scattered bilat., more at bases) Gastrointestinal: Yes: Normal Bowel Sounds, Soft. No: Hepatomegaly, Tenderness Edema: No Neurological: Yes: Alert, Oriented, Other (motor and sensory are symmeteric in UE/ LE/ face) Labs: CBC, BMP 04/23/18 05:30 04/23/18 05:30 INR, PTT INR 1.26 (0.83-1.09) H 04/22/18 12:00 Problem List - Problems (1) Septic shock Code(s): A41.9 - SEPSIS, UNSPECIFIED ORGANISM; R65.21 - SEVERE SEPSIS WITH SEPTIC SHOCK (2) PNA (pneumonia) Code(s): J18.9 - PNEUMONIA, UNSPECIFIED ORGANISM (3) Influenza A Code(s): J10.1 - FLU DUE TO OTH IDENT INFLUENZA VIRUS W OTH RESP MANIFEST (4) Elevated LFTs Code(s): R94.5 - ABNORMAL RESULTS OF LIVER FUNCTION STUDIES (5) CAD (coronary artery disease) Code(s): I25.10 - ATHSCL HEART DISEASE OF [place] CORONARY ARTERY W/O ANG PCTRS (6) Hx of CABG Code(s): Z95.1 - PRESENCE OF AORTOCORONARY BYPASS GRAFT (7) IDDM (insulin dependent diabetes mellitus) Code(s): E11.9 - TYPE 2 DIABETES MELLITUS WITHOUT COMPLICATIONS; Z79.4 - APPLICATIONS CONSULTANT (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 OF INSULIN (8) Impaired gait Code(s): R26.9 - UNSPECIFIED ABNORMALITIES OF GAIT AND MOBILITY (9) Weakness Code(s): R53.1 - WEAKNESS (10) Humeral head fracture Code(s): S42.293A - OTH DISP FX OF UPPER END OF UNSP HUMERUS, INIT FOR CLOS FX (11) Knee fracture, left Code(s): [id number] - (12) Wound infection complicating hardware Code(s): T84.7XXA - INFECT/INFLM REACT DUE TO OTH INT ORTH PROSTH DEV/GRFT, INIT Qualifiers: Encounter type: initial encounter Qualified Code(s): T84.7XXA - Infection and inflammatory reaction due to other internal orthopedic prosthetic devices, implants and grafts, initial encounter (13) Essential tremor Code(s): G25.0 - ESSENTIAL TREMOR (14) Asthma Code(s): J45.909 - UNSPECIFIED ASTHMA, UNCOMPLICATED (15) COPD (chronic obstructive pulmonary disease) Code(s): J44.9 - CHRONIC OBSTRUCTIVE PULMONARY DISEASE, UNSPECIFIED Assessment/Plan Pt with hypotension, failed fluid resuscitation, Central line was placed in ER and pt to be started on Levophed and admitted to ICU. Pt's BP improved; I spoke with pt's ICU nurse to abilio down Levophed (target MAP 65 or above). CCM consult. IV abtx IVF Tamiflu ID consult is appreciated, case was reviewed with Dr Plummer GI consult; LFT's are improving (probable in the setting of sepsis). Cardio consult is appreciated. AM labs Case was d/w pt's ER nurse. Prognosis: reserved. Time spent for managing pt's care: over 40 minutes
[2018-04-23] MEDS ORDERED: PIPERACILLIN/TAZOBACTAM 3.375 GM VIAL IVPB ONE ×2 (09:53→16:43)
[2018-04-23] MEDS ORDERED: DEXTROSE 5%-WATER - 50 ML IVPB ONE ×2 (09:53→16:43)
[2018-04-23] MEDS ORDERED: PT OWN MED DRAWER 7, Y5N ONE ×3 (09:54→16:43)
[2018-04-23] MEDS: PIPERACILLIN/TAZOB 3.375 GM 3.375 GM in DEXTROSE 5%-WATER - 50 ML IVPB SCH ×2 (10:06→17:47)
--- NOTE | 2018-04-23 10:06 | PN ---
Physical Exam: SUBJECTIVE: Patient seen and examined this AM in ICU. Mentions that She fell the day prior to admission in the presence of her SPOOLER but was able to get up and ambulate after. She comes to [facility] due to the increased coughing and some SOB. Continues to have nonproductive cough; Patient become febrile overnight. Denies chest pain, nausea vomiting, diarrhea, constipation. OBJECTIVE: Vital Signs Period Temp Pulse Resp BP Sys/Chen Pulse Ox Last 24 Hr 97.7 F-104.5 F 61-120 15-101 79-157/39-134 88-100 GENERAL: A&Ox3, NAD HEAD: Right Temporal healing laceration with surrounding ecchymosis, No active bleeding or drainage, No Tenderness to palpation EYES: PERRL, EOMI ENT: Moist mucous membranes. NECK: Supple LUNGS: Bibasalar rales HEART: Regular rate and rhythm, S1, S2 without murmur, rub or gallop. ABDOMEN: Soft, nontender, nondistended, + bowel sounds, no guarding EXTREMITIES: No edema. NEUROLOGICAL: Cranial nerves II through XII grossly intact. Normal speech. Chronic Resting tremor of the upper extremities, Head PSYCH: Normal mood, normal affect. SKIN: Warm, dry. Laboratory Last Values WBC 5.1 K/mm3 (4.0-10.0) 04/23/18 05:30 RBC 2.77 M/mm3 (3.60-5.2) L 04/23/18 05:30 Hgb 9.9 GM/dL (10.7-15.3) L 04/23/18 05:30 Hct 28.7 % (32.4-45.2) L 04/23/18 05:30 MCV 103.5 fl (80-96) H 04/23/18 05:30 MCH 35.8 pg (25.7-33.7) H 04/23/18 05:30 MCHC 34.6 g/dl (32.0-36.0) 04/23/18 05:30 RDW 12.7 % (11.6-15.6) 04/23/18 05:30 Plt Count 202 K/MM3 (134-434) 04/23/18 05:30 MPV 8.8 fl (7.5-11.1) 04/23/18 05:30 Absolute Neuts (auto) 4.3 K/mm3 (1.5-8.0) 04/23/18 05:30 Total Counted 100 04/22/18 12:00 Neutrophils % 84.5 % (42.8-82.8) H 04/23/18 05:30 Neutrophils % (Manual) 79.0 % (42.8-82.8) 04/22/18 12:00 Band Neutrophils % 7.0 % 04/22/18 12:00 Lymphocytes % 12.8 % (8-40) D 04/23/18 05:30 Lymphocytes % (Manual) 12.0 % (8-40) 04/22/18 12:00 Monocytes % 2.5 % (3.8-10.2) L 04/23/18 05:30 Monocytes % (Manual) 2 % (3.8-10.2) L 04/22/18 12:00 Eosinophils % 0.1 % (0-4.5) 04/23/18 05:30 Eosinophils % (Manual) 0.0 % (0-4.5) 04/22/18 12:00 Basophils % 0.1 % (0-2.0) 04/23/18 05:30 Basophils % (Manual) 0.0 % (0-2.0) 04/22/18 12:00 Nucleated RBC % 0 % (0-0) 04/23/18 05:30 Anisocytosis 1+ 04/22/18 12:00 Macrocytosis 1+ 04/22/18 12:00 ESR 48 mm/hr (0-30) H 04/23/18 05:30 PT with INR 14.90 SEC (9.7-13.0) H 04/22/18 12:00 INR 1.26 (0.83-1.09) H 04/22/18 12:00 PTT (Actin FS) 31.7 SECONDS (25.2-36.5) 04/22/18 12:00 VBG pH 7.43 (7.32-7.42) H D 04/22/18 12:00 POC VBG pCO2 37.4 mmHg (38-52) L D 04/22/18 12:00 POC VBG pO2 45.6 mmHg (28-48) D 04/22/18 12:00 Mixed VBG HCO3 24.2 meq/L (19-25) 04/22/18 12:00 Sodium 136 mmol/L (136-145) 04/23/18 05:30 Potassium 3.4 mmol/L (3.5-5.1) L 04/23/18 05:30 Chloride 106 mmol/L (98-107) 04/23/18 05:30 Carbon Dioxide 23 mmol/L (21-32) 04/23/18 05:30 Anion Gap 7 MMOL/L (8-16) L 04/23/18 05:30 BUN 17 mg/dL (7-18) 04/23/18 05:30 Creatinine 0.4 mg/dL (0.55-1.3) L 04/23/18 05:30 Creat Clearance w eGFR > 60 (>60) 04/23/18 05:30 POC Glucometer 131 UNITS (80-120) 04/23/18 05:53 Random Glucose 77 mg/dL (74-106) 04/23/18 05:30 Lactic Acid 1.0 mmol/L (0.4-2.0) 04/23/18 05:30 Calcium 7.0 mg/dL (8.5-10.1) L 04/23/18 05:30 Total Bilirubin 0.7 mg/dL (0.2-1) 04/23/18 05:30 GGT 923 U/L (5-85) H 04/23/18 05:30 AST 207 U/L (15-37) H 04/23/18 05:30 ALT 283 U/L (13-61) H 04/23/18 05:30 Alkaline Phosphatase 265 U/L (45-117) H 04/23/18 05:30 Creatine Kinase 40 U/L (26-192) 04/22/18 12:00 CK-MB (CK-2) < 1.0 ng/mL (0.5-3.6) 04/22/18 12:00 Troponin I < 0.02 ng/ml (0.00-0.05) 04/22/18 12:00 C-Reactive Protein 21.3 MG/DL (0.00-0.3) H 04/23/18 05:30 Total Protein 5.0 g/dl (6.4-8.2) L 04/23/18 05:30 Albumin 2.0 g/dl (3.4-5.0) L 04/23/18 05:30 TSH 3.91 uIU/ml (0.358-3.74) H 04/22/18 19:00 Urine Color Ree 04/22/18 12:23 Urine Appearance Cloudy 04/22/18 12:23 Urine pH 5.0 (5.0-8.0) 04/22/18 12:23 Ur Specific Crosby 1.021 (1.010-1.035) 04/22/18 12:23 Urine Protein 1+ (NEGATIVE) H 04/22/18 12:23 Urine Glucose (UA) 3+ (NEGATIVE) H 04/22/18 12:23 Urine Ketones Negative (NEGATIVE) 04/22/18 12:23 Urine Blood Negative (NEGATIVE) 04/22/18 12:23 Urine Nitrite Negative (NEGATIVE) 04/22/18 12:23 Urine Bilirubin Negative (<2.0 mg/dL) 04/22/18 12:23 Urine Urobilinogen 2.0 mg/dL (0.2-1.0) H 04/22/18 12:23 Ur Leukocyte Esterase Negative (NEGATIVE) 04/22/18 12:23 Urine WBC (Auto) 3 /hpf (3-5) 04/22/18 12:23 Urine RBC (Auto) 3 /hpf (0-3) 04/22/18 12:23 Ur Epithelial Cells Rare /HPF (FEW) 04/22/18 12:23 Hyaline Casts 4 /lpf 04/22/18 12:23 Urine Mucus Rare 04/22/18 12:23 Acetone, Qual Negative (NEGATIVE) L 04/22/18 12:50 Influenza A (Rapid) Positive A 04/22/18 16:39 Influenza B (Rapid) Negative 04/22/18 16:39 Blood Type AB POSITIVE 04/22/18 14:30 Antibody Screen Positive H 04/22/18 14:30 Antibody Identification Inconclusi 04/22/18 14:30 Antigen Identification No Result Required. 04/22/18 14:30 Active Medications Aspirin (Asa -) 81 mg PO DAILY [facility] Clopidogrel Bisulfate (Plavix -) 75 mg PO DAILY [facility]1983 Norepinephrine Bitartrate 4, (000 mcg/ Dextrose) 500 mls @ 22.5 mls/hr IV TITR TAYLA; Protocol Last Admin: 04/23/18 07:40 Dose: 6 mcg/min, 45 mls/hr Sodium Chloride (Normal Saline -) 1,000 mls @ 50 mls/hr IV ASDIR TAYLA Last Admin: 04/23/18 09:20 Dose: 50 mls/hr Vancomycin HCl 750 mg/ (Dextrose) 250 mls @ 250 mls/hr IVPB Q12H TAYLA; Protocol Piperacillin Sod/Tazobactam (Sod 3.375 gm/ Dextrose) 50 mls @ 100 mls/hr IVPB Q8H-IV TAYLA; Protocol Insulin Aspart (Novolog Vial Sliding Scale -) 1 vial SQ ACHS TAYLA; Protocol Last Admin: 04/23/18 06:02 Dose: Not Given Oseltamivir Phosphate (Tamiflu -) 75 mg PO BID TAYLA Stop: 04/27/18 21:59 Last Admin: 04/22/18 23:48 Dose: 75 mg Pantoprazole Sodium (Protonix -) 40 mg PO DAILY [facility] Primidone (Mysoline -) 250 mg PO BID [facility] Last Admin: 04/22/18 23:48 Dose: 250 mg Senna (Senna -) 2 tab PO DAILY [facility] Silver Sulfadiazine (Silvadene -) 1 applic TP DAILY [facility] ASSESSMENT/PLAN: 58 y/o F with PMHx of IDDM, COPD, CAD s/p PCI, TBI w/ resultant tremor, prior admissions for DKA, found to be in septic shock likely due to Influenza and will be monitored in ICU. #Neuro Hx of TBI with resultant Tremor -A&Ox3, NAD -Continue home dose Primidone #Cardio Hx of CAD s/p PCI -Trop < 0.02 -EKG: NSR, VR 84, QTc 404 -Continue home dose with ASA, Clopidogrel -Started on Norepinephrine Drip; Titrate for MAP > 65 -Dr. Tubbs consulted #Pulm Hx of COPD -Not on Home O2 -Supplemental O2 to maintain Sats 88-95% #GI Transaminitis, Improving -Likely due to Septic Shock -CT A/P: No discrete noncontrast hepatic pathology is identified. Slightly distended fluid-filled small bowel loop and probably less likely a pathologic cystic structure. -Continue Pantoprazole, Senna -Will need two-week follow-up CT with oral contrast for the above CT Finding -Dr. Graff consulted -Trend LFTs #Renal Hypokalemia -Repleted -Monitor Urine Output #Heme Macrocytosis -Anemia possibly dilutional -B12, Folate Pending -No active signs of bleeding at this time #Endo Hx of IDDM, DKA -ISS BGMs ACHS -TSH 3.91; Would recheck once acute process resolves #MSK S/P Fall -CT Head, CT C-Spine No Fx -Pelvis XRay: Deformities of the right superior and inferior pubic rami to suggest fractures of unclear age. -Left Should XRay: Old proximal left humeral fracture is noted from 03/06/2017 with degenerative changes and slight deformity. An acute process is not seen. -Currently not in pain, Continue to monitor #ID Septic Shock Lactic Acidosis, Resolved -Likely due to Influenza (Positive serology) and LLL PNA -Febrile to 104 on admission, Has continued to spike temps -Elevated ESR, CRP likely acute phase reactant -CT A/P: Bibasilar pulmonary infiltrates, left more prominent than right. Minimal to mild right posterior basilar bronchiectasis. -CXR: New infiltrate with some questionable fluid on the left. There may be some atelectasis at the right base. -S/P 2L NS; Continue NS @ 50 mls/hr -Continue Vancomycin 750mg Q12H, Piperacillin/Tazobactam 3.375gm Q8H (Started on 04/22) -Continue Oseltamivir 75mg BID (Started on 04/22) -Started on Norepinephrine Drip; Titrate for MAP > 65 -Tylenol PRN -UA Negative for UTI -Urine/Blood/Sputum cx, Legionella ag, Strep Pneumo Ag, MRSA Screen pending -Dr. Plummer consulted #FEN -Continue NS @ 50 mls/hr -Lytes WNL -Diabetic, Na Controlled diet #PPx -DVT: SCDs -GI: Pantoprazole #LTD -RIJ Placed on 04/22 -Jaramillo Catheter placed on 04/22 Code Status: Full Code Dispo: Continue to monitor in ICU Visit type - Emergency Visit Emergency Visit: Yes ED Registration Date: 04/22/18 Care time: The patient presented to the Emergency Department on the above date and was hospitalized for further evaluation of their emergent condition. - New Patient This patient is new to me today: Yes Date on this admission: 04/23/18 - Critical Care Critical Care patient: Yes Total Critical Care Time (in minutes): 40 Critical Care Statement: The care of this patient involved high complexity decision making to prevent further life threatening deterioration of the patient 's condition and/or to evaluate & treat vital organ system(s) failure or risk of failure.
[2018-04-23] MEDS: CLOPIDOGREL BISULFATE 75 MG TABLET (FP) PO SCH (10:10)
[2018-04-23] MEDS: ASPIRIN 81 MG CHEWABLE TABLETS PO SCH (10:10)
[2018-04-23] MEDS: PANTOPRAZOLE 40 MG TABLET (FP) PO SCH (10:10)
[2018-04-23] MEDS: VANCOMYCIN 750 MG in DEXTROSE 5%-WATER - 250 ML IVPB SCH ×2 (10:56→22:59)
[2018-04-23] MEDS: PRIMIDONE 250 MG TABLET PO SCH ×2 (10:57→22:00)
[2018-04-23] MEDS: OSELTAMIVIR PHOSPHATE 75 MG CAPSULE PO SCH ×2 (10:57→22:59)
[2018-04-23 11:36] LABS: ANISOCYTOSIS 1+; MACROCYTOSIS 1+; PLATELET ESTIMATE NORMAL
[2018-04-23] MEDS: ACETAMINOPHEN 325 MG TABLET (FP) PO PRN (12:31)
[2018-04-23] MEDS: SENNOSIDES 8.6MG TABLET (FP) PO SCH (12:31)
--- NOTE | 2018-04-23 12:42 | PN ---
Teaching Attending Note Name of Resident: Tyesha Garza ATTENDING PHYSICIAN STATEMENT I saw and evaluated the patient. I reviewed the resident's note and discussed the case with the resident. I agree with the resident's findings and plan as documented. SUBJECTIVE: Patient seen and examined in the ICU. Awake and responsive. Remains on NE @ 6 mcq for hemodynamic support. Denies CP or SOB. Intake & Output 04/20/18 04/21/18 04/22/18 04/23/18 23:59 23:59 23:59 23:59 Intake Total 2400 2279 Output Total 200 Balance 2200 2279 Weight 97 lb 9.6 oz Last Vital Signs Temp Pulse Resp BP Pulse Ox 102.6 F H 91 H 22 H 129/67 100 04/23/18 11:27 04/23/18 11:27 04/23/18 11:27 04/23/18 11:32 04/23/18 08:04 Active Medications Acetaminophen (Tylenol -) 650 mg PO Q8H PRN PRN Reason: FEVER Last Admin: 04/23/18 12:31 Dose: 650 mg Aspirin (Asa -) 81 mg PO DAILY TAYLA Last Admin: 04/23/18 10:10 Dose: 81 mg Clopidogrel Bisulfate (Plavix -) 75 mg PO DAILY ATYLA Last Admin: 04/23/18 10:10 Dose: 75 mg Norepinephrine Bitartrate 4, (000 mcg/ Dextrose) 500 mls @ 22.5 mls/hr IV TITR TAYLA; Protocol Last Titration: 04/23/18 11:32 Dose: 2 mcg/min, 15 mls/hr Sodium Chloride (Normal Saline -) 1,000 mls @ 50 mls/hr IV ASDIR TAYLA Last Admin: 04/23/18 09:20 Dose: 50 mls/hr Vancomycin HCl 750 mg/ (Dextrose) 250 mls @ 250 mls/hr IVPB Q12H TAYLA; Protocol Last Admin: 04/23/18 10:56 Dose: 250 mls/hr Piperacillin Sod/Tazobactam (Sod 3.375 gm/ Dextrose) 50 mls @ 100 mls/hr IVPB Q8H-IV TAYLA; Protocol Last Admin: 04/23/18 10:06 Dose: 100 mls/hr Insulin Aspart (Novolog Vial Sliding Scale -) 1 vial SQ ACHS TAYLA; Protocol Last Admin: 04/23/18 06:02 Dose: Not Given Oseltamivir Phosphate (Tamiflu -) 75 mg PO BID [facility] Stop: 04/27/18 21:59 Last Admin: 04/23/18 10:57 Dose: 75 mg Pantoprazole Sodium (Protonix -) 40 mg PO DAILY [facility] Last Admin: 04/23/18 10:10 Dose: 40 mg Primidone (Mysoline -) 250 mg PO BID [facility] Last Admin: 04/23/18 10:57 Dose: 250 mg Senna (Senna -) 2 tab PO DAILY [facility] Last Admin: 04/23/18 12:31 Dose: 2 tab Silver Sulfadiazine (Silvadene -) 1 applic TP DAILY [facility] Constitutional: Yes: NAD, awake and alert Eyes: Yes: Conjunctiva Clear, EOM Intact, PERRL HENT: Yes: Other (right lateral lower temperol area with healing laceration surrounding by 2-3cm of ecchymosis, without tenderness/bleeding/erythema/ swelling or discharge. dried blood in hair.). No: Epistaxis, Pharyngeal Erythema, Thrush Neck: Yes: Supple, Trachea Midline. No: Lymphadenopathy, Rigid, Tenderness, Thyromegaly Cardiovascular: Yes: Regular Rate and Rhythm, S1, S2. 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), LLE (3/5 hip extension), RUE (2/5 hand office machine mechanic, unable to fully extend shoulder), RLE (3/5 hip extension) Labs: Laboratory Results - last 24 hr 04/22/18 04/22/18 04/22/18 12:00 12:00 12:00 WBC 7.6 RBC 3.27 L Hgb 11.6 Hct 33.6 MCV 103.0 H MCH 35.6 H MCHC 34.6 RDW 13.2 D Plt Count 225 D MPV 9.2 D Absolute Neuts (auto) 5.9 Total Counted 100 Neutrophils % 78.4 Neutrophils % (Manual) 79.0 Band Neutrophils % 7.0 Lymphocytes % 16.4 D Lymphocytes % (Manual) 12.0 Monocytes % 4.9 Monocytes % (Manual) 2 L Eosinophils % 0.1 D Eosinophils % (Manual) 0.0 Basophils % 0.2 Basophils % (Manual) 0.0 Myelocytes % (Man) Promyelocytes % (Man) Blast Cells % (Manual) Nucleated RBC % 0 Metamyelocytes Hypochromia Platelet Estimate Polychromasia Poikilocytosis Anisocytosis 1+ Microcytosis Macrocytosis 1+ ESR PT with INR 14.90 H INR 1.26 H PTT (Actin FS) 31.7 VBG pH 7.43 H D POC VBG pCO2 37.4 L D POC VBG pO2 45.6 D Mixed VBG HCO3 24.2 Sodium Potassium Chloride Carbon Dioxide Anion Gap BUN Creatinine Creat Clearance w eGFR POC Glucometer Random Glucose Lactic Acid Calcium Total Bilirubin GGT AST ALT Alkaline Phosphatase Creatine Kinase CK-MB (CK-2) Troponin I C-Reactive Protein Total Protein Albumin TSH Urine Color Urine Appearance Urine pH Ur Specific Carter Urine Protein Urine Glucose (UA) Urine Ketones Urine Blood Urine Nitrite Urine Bilirubin Urine Urobilinogen Ur Leukocyte Esterase Urine WBC (Auto) Urine RBC (Auto) Ur Epithelial Cells Hyaline Casts Urine Mucus Acetone, Qual Influenza A (Rapid) Influenza B (Rapid) Blood Type Antibody Screen Antibody Identification Antigen Identification 04/22/18 04/22/18 04/22/18 12:00 12:00 12:23 WBC RBC Hgb Hct MCV MCH MCHC RDW Plt Count MPV Absolute Neuts (auto) Total Counted Neutrophils % Neutrophils % (Manual) Band Neutrophils % Lymphocytes % Lymphocytes % (Manual) Monocytes % Monocytes % (Manual) Eosinophils % Eosinophils % (Manual) Basophils % Basophils % (Manual) Myelocytes % (Man) Promyelocytes % (Man) Blast Cells % (Manual) Nucleated RBC % Metamyelocytes Hypochromia Platelet Estimate Polychromasia Poikilocytosis Anisocytosis Microcytosis Macrocytosis ESR PT with INR INR PTT (Actin FS) VBG pH POC VBG pCO2 POC VBG pO2 Mixed VBG HCO3 Sodium 136 Potassium 3.9 Chloride 100 Carbon Dioxide 26 Anion Gap 10 BUN 28 H Creatinine 0.8 Creat Clearance w eGFR > 60 POC Glucometer Random Glucose 290 H Lactic Acid 2.4 H* Calcium 7.7 L Total Bilirubin 0.7 GGT AST 464 H ALT 480 H Alkaline Phosphatase 372 H Creatine Kinase 40 CK-MB (CK-2) < 1.0 Troponin I < 0.02 C-Reactive Protein Total Protein 6.2 L Albumin 2.5 L TSH Urine Color Ree Urine Appearance Cloudy Urine pH 5.0 Ur Specific Carter 1.021 Urine Protein 1+ H Urine Glucose (UA) 3+ H Urine Ketones Negative Urine Blood Negative Urine Nitrite Negative Urine Bilirubin Negative Urine Urobilinogen 2.0 H Ur Leukocyte Esterase Negative Urine WBC (Auto) 3 Urine RBC (Auto) 3 Ur Epithelial Cells Rare Hyaline Casts 4 Urine Mucus Rare Acetone, Qual Influenza A (Rapid) Influenza B (Rapid) Blood Type Antibody Screen Antibody Identification Antigen Identification 04/22/18 04/22/18 04/22/18 12:50 14:30 16:39 WBC RBC Hgb Hct MCV MCH MCHC RDW Plt Count MPV Absolute Neuts (auto) Total Counted Neutrophils % Neutrophils % (Manual) Band Neutrophils % Lymphocytes % Lymphocytes % (Manual) Monocytes % Monocytes % (Manual) Eosinophils % Eosinophils % (Manual) Basophils % Basophils % (Manual) Myelocytes % (Man) Promyelocytes % (Man) Blast Cells % (Manual) Nucleated RBC % Metamyelocytes Hypochromia Platelet Estimate Polychromasia Poikilocytosis Anisocytosis Microcytosis Macrocytosis ESR PT with INR INR PTT (Actin FS) VBG pH POC VBG pCO2 POC VBG pO2 Mixed VBG HCO3 Sodium Potassium Chloride Carbon Dioxide Anion Gap BUN Creatinine Creat Clearance w eGFR POC Glucometer Random Glucose Lactic Acid Calcium Total Bilirubin GGT AST ALT Alkaline Phosphatase Creatine Kinase CK-MB (CK-2) Troponin I C-Reactive Protein Total Protein Albumin TSH Urine Color Urine Appearance Urine pH Ur Specific Carter Urine Protein Urine Glucose (UA) Urine Ketones Urine Blood Urine Nitrite Urine Bilirubin Urine Urobilinogen Ur Leukocyte Esterase Urine WBC (Auto) Urine RBC (Auto) Ur Epithelial Cells Hyaline Casts Urine Mucus Acetone, Qual Negative L Influenza A (Rapid) Positive A Influenza B (Rapid) Negative Blood Type AB POSITIVE Antibody Screen Positive H Antibody Identification Cold auto Antigen Identification No Result Required. 04/22/18 04/22/18 04/22/18 19:00 19:00 23:33 WBC RBC Hgb Hct MCV MCH MCHC RDW Plt Count MPV Absolute Neuts (auto) Total Counted Neutrophils % Neutrophils % (Manual) Band Neutrophils % Lymphocytes % Lymphocytes % (Manual) Monocytes % Monocytes % (Manual) Eosinophils % Eosinophils % (Manual) Basophils % Basophils % (Manual) Myelocytes % (Man) Promyelocytes % (Man) Blast Cells % (Manual) Nucleated RBC % Metamyelocytes Hypochromia Platelet Estimate Polychromasia Poikilocytosis Anisocytosis Microcytosis Macrocytosis ESR PT with INR INR PTT (Actin FS) VBG pH POC VBG pCO2 POC VBG pO2 Mixed VBG HCO3 Sodium Potassium Chloride Carbon Dioxide Anion Gap BUN Creatinine Creat Clearance w eGFR POC Glucometer 39 Random Glucose Lactic Acid 0.9 Calcium Total Bilirubin GGT AST ALT Alkaline Phosphatase Creatine Kinase CK-MB (CK-2) Troponin I C-Reactive Protein Total Protein Albumin TSH 3.91 H Urine Color Urine Appearance Urine pH Ur Specific Carter Urine Protein Urine Glucose (UA) Urine Ketones Urine Blood Urine Nitrite Urine Bilirubin Urine Urobilinogen Ur Leukocyte Esterase Urine WBC (Auto) Urine RBC (Auto) Ur Epithelial Cells Hyaline Casts Urine Mucus Acetone, Qual Influenza A (Rapid) Influenza B (Rapid) Blood Type Antibody Screen Antibody Identification Antigen Identification 04/23/18 04/23/18 04/23/18 00:27 05:30 05:30 WBC 5.1 RBC 2.77 L Hgb 9.9 L Hct 28.7 L MCV 103.5 H MCH 35.8 H MCHC 34.6 RDW 12.7 Plt Count 202 MPV 8.8 Absolute Neuts (auto) 4.3 Total Counted Neutrophils % 84.5 H Neutrophils % (Manual) 67.0 Band Neutrophils % 13.4 Lymphocytes % 12.8 D Lymphocytes % (Manual) 15.5 Monocytes % 2.5 L Monocytes % (Manual) 3 L Eosinophils % 0.1 Eosinophils % (Manual) 0.0 Basophils % 0.1 Basophils % (Manual) 0.0 Myelocytes % (Man) 0 Promyelocytes % (Man) 0 Blast Cells % (Manual) 0 Nucleated RBC % 0 Metamyelocytes 0 Hypochromia 0 Platelet Estimate Normal Polychromasia 0 Poikilocytosis 0 Anisocytosis 1+ Microcytosis 0 Macrocytosis 1+ ESR 48 H PT with INR INR PTT (Actin FS) VBG pH POC VBG pCO2 POC VBG pO2 Mixed VBG HCO3 Sodium 136 Potassium 3.4 L Chloride 106 Carbon Dioxide 23 Anion Gap 7 L BUN 17 Creatinine 0.4 L Creat Clearance w eGFR > 60 POC Glucometer 95 Random Glucose 77 Lactic Acid Calcium 7.0 L Total Bilirubin 0.7 GGT 923 H AST 207 H ALT 283 H Alkaline Phosphatase 265 H Creatine Kinase CK-MB (CK-2) Troponin I C-Reactive Protein 21.3 H Total Protein 5.0 L Albumin 2.0 L TSH Urine Color Urine Appearance Urine pH Ur Specific Carter Urine Protein Urine Glucose (UA) Urine Ketones Urine Blood Urine Nitrite Urine Bilirubin Urine Urobilinogen Ur Leukocyte Esterase Urine WBC (Auto) Urine RBC (Auto) Ur Epithelial Cells Hyaline Casts Urine Mucus Acetone, Qual Influenza A (Rapid) Influenza B (Rapid) Blood Type Antibody Screen Antibody Identification Antigen Identification 04/23/18 04/23/18 04/23/18 05:30 05:53 12:05 WBC RBC Hgb Hct MCV MCH MCHC RDW Plt Count MPV Absolute Neuts (auto) Total Counted Neutrophils % Neutrophils % (Manual) Band Neutrophils % Lymphocytes % Lymphocytes % (Manual) Monocytes % Monocytes % (Manual) Eosinophils % Eosinophils % (Manual) Basophils % Basophils % (Manual) Myelocytes % (Man) Promyelocytes % (Man) Blast Cells % (Manual) Nucleated RBC % Metamyelocytes Hypochromia Platelet Estimate Polychromasia Poikilocytosis Anisocytosis Microcytosis Macrocytosis ESR PT with INR INR PTT (Actin FS) VBG pH POC VBG pCO2 POC VBG pO2 Mixed VBG HCO3 Sodium Potassium Chloride Carbon Dioxide Anion Gap BUN Creatinine Creat Clearance w eGFR POC Glucometer 131 207 Random Glucose Lactic Acid 1.0 Calcium Total Bilirubin GGT AST ALT Alkaline Phosphatase Creatine Kinase CK-MB (CK-2) Troponin I C-Reactive Protein Total Protein Albumin TSH Urine Color Urine Appearance Urine pH Ur Specific Carter Urine Protein Urine Glucose (UA) Urine Ketones Urine Blood Urine Nitrite Urine Bilirubin Urine Urobilinogen Ur Leukocyte Esterase Urine WBC (Auto) Urine RBC (Auto) Ur Epithelial Cells Hyaline Casts Urine Mucus Acetone, Qual Influenza A (Rapid) Influenza B (Rapid) Blood Type Antibody Screen Antibody Identification Antigen Identification Assessment/Plan Septic Shock due to Influenza / LLL PNA / R.O decubitus ulcers COPD Essential tremor Transminitis DM ABS per ID IVF Pressors to maintain MAP > 65 Follow cultures Trend LFTs Tamiflu PO as tolerated O2 as needed Plavix / ASA BD TX PRN Noted GI and Cardiology has been called for evaluation ICU monitoring Dr Pena Critical care time spent in reviewing chart, evaluating patient and formulating plan - 36 minutes.
--- NOTE | 2018-04-23 13:22 | EKG ---
Test Reason : Blood Pressure : / mmHG Vent. Rate : 084 BPM Atrial Rate : 084 BPM P-R Int : 138 ms QRS Dur : 080 ms QT Int : 342 ms P-R-T Axes : 078 072 049 degrees QTc Int : 404 ms NORMAL SINUS RHYTHM POSSIBLE LEFT ATRIAL ENLARGEMENT BORDERLINE ECG WHEN COMPARED WITH ECG OF 01-JAN-2018 10:03, NONSPECIFIC T WAVE ABNORMALITY NO LONGER EVIDENT IN LATERAL LEADS Confirmed by JOE HUTCHINS, DEENA ([id number] on 04/23/2018 1:21:53 PM Referred By: Confirmed By:DEENA DIAZ MD
[2018-04-23] MEDS ORDERED: IBUPROFEN 400 MG TABLET (FP) PO ONE (14:04)
[2018-04-23] MEDS ORDERED: POTASSIUM CHLORIDE TABS 20 MEQ TABLET.ER (FP) PO ONE (14:15)
[2018-04-23] MEDS ORDERED: SODIUM CHLORIDE 500 ML IV STA (14:28)
--- NOTE | 2018-04-23 16:31 | CON.GI ---
Consult Consult Specialty:: Gastroenterology Referred by:: Dr Starr Reason for Consultation:: Abnormal LFTs - History of Present Illness Chief Complaint: Fall at home History of Present Illness: 58F diabetic with neuropathy fell at home and presents with suspected sepsis and fever to 102. She had been found to have the flu and a LLL infiltrate. She has also been found to have elevated LFTs that are already resolving. She denies any abdominal pain, vomiting or diarrhea. CT scan reveals that a previous GB stone has passed. That stone was seen on an 01/29 CT scan. An ultrasound in 05/01 however revealed no gallstones. Donovan tells me that she has had abnormal LFTs in the past but no etiology has been found. Mangiatech reveals that she is negative for hepatitis A,B and C. Her iron indices argue against hemochromatosis. She tells me that she has been seen by Dr Hoang my associate in the past and told that she LFT abnormalities were attributed to medications. She last had a colonoscopy in 2011 when a tubular adenoma was removed. Dr. Hong did an EGD in 2013 that revealed a small hiatal hernia and duodenitis. 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 left hip fx ORIF. bilateral carpal tunnel surgeries. 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 Place of : [facility] History of Recent Travel: No Home Medications - Allergies Allergies/Adverse Reactions: Allergies Allergy/AdvReac Type Severity Reaction Status Date / Time No Known Drug Allergies Allergy Verified 04/22/18 12:24 - Home Medications Home Medications: Ambulatory Orders Aspirin 81 mg PO DAILY 03/12/17 Clopidogrel Bisulfate [Plavix] 75 mg PO DAILY 03/12/17 Primidone [Mysoline] 250 mg PO BID 03/12/17 Insulin (Levemir) [Levemir Vial] 7 units SQ BID@0700,2200 units 01/12/18 Insulin Sliding Scale [Novolog Vial Sliding Scale -] 0 - 10 vial SQ ACHS units 01/12/18 Silver Sulfadiazine 1% Top Cr [Silvadene -] 1 applic TP DAILY jar 01/12/18 Acetaminophen [Tylenol .Regular Strength -] 975 mg PO Q6H PRN 02/27/18 Ascorbate Calcium [Vitamin C] 500 mg PO DAILY 02/27/18 Atorvastatin Ca [Lipitor] 20 mg PO HS 02/27/18 Capsaicin/Menthol [Salonpas Gel-Patch Hot] 1 each TP DAILY 02/27/18 Nystatin Ointment [Mycostatin Ointment -] 1 applic TP TID 02/27/18 Oxycodone HCl 10 mg PO Q4H PRN 02/27/18 Pantoprazole Sodium 40 mg PO DAILY 02/27/18 Sennosides [Senna] 17.2 mg PO DAILY 02/27/18 Triamcinolone 0.1% Cream [Aristocort] 1 applic TP BID 02/27/18 Family Disease History - Family Disease History Family Disease History: Heart Disease: Mother ( [place] age 87), Respiratory: Sister (asthma), Other: Father (intestinal volvulus), Daughter (bipolar committed suicide) Review of Systems - Review of Systems Constitutional: reports: Malaise, Weakness Eyes: reports: Floaters HENT: reports: No Symptoms Neck: reports: Stiffness Cardiovascular: reports: Palpitations Respiratory: reports: Exercise Intolerance, SOB on Exertion Gastrointestinal: reports: No Symptoms Musculoskeletal: reports: Back Pain, Muscle Pain, Muscle Weakness Neurological: reports: Parasthesia, Tremors, Unsteady Gait, Weakness Physical Exam-GI Vital Signs: Vital Signs Temperature 100.6 F H 04/23/18 14:59 Pulse Rate 78 04/23/18 15:01 Respiratory Rate 20 04/23/18 14:59 Blood Pressure 88/39 L 04/23/18 15:01 O2 Sat by Pulse Oximetry (%) 100 04/23/18 08:04 CBC,CMP WBC 5.1 K/mm3 (4.0-10.0) 04/23/18 05:30 RBC 2.77 M/mm3 (3.60-5.2) L 04/23/18 05:30 Hgb 9.9 GM/dL (10.7-15.3) L 04/23/18 05:30 Hct 28.7 % (32.4-45.2) L 04/23/18 05:30 MCV 103.5 fl (80-96) H 04/23/18 05:30 MCH 35.8 pg (25.7-33.7) H 04/23/18 05:30 MCHC 34.6 g/dl (32.0-36.0) 04/23/18 05:30 RDW 12.7 % (11.6-15.6) 04/23/18 05:30 Plt Count 202 K/MM3 (134-434) 04/23/18 05:30 MPV 8.8 fl (7.5-11.1) 04/23/18 05:30 Absolute Neuts (auto) 4.3 K/mm3 (1.5-8.0) 04/23/18 05:30 Total Counted 100 04/22/18 12:00 Neutrophils % 84.5 % (42.8-82.8) H 04/23/18 05:30 Neutrophils % (Manual) 67.0 % (42.8-82.8) 04/23/18 05:30 Band Neutrophils % 13.4 % 04/23/18 05:30 Lymphocytes % 12.8 % (8-40) D 04/23/18 05:30 Lymphocytes % (Manual) 15.5 % (8-40) 04/23/18 05:30 Monocytes % 2.5 % (3.8-10.2) L 04/23/18 05:30 Monocytes % (Manual) 3 % (3.8-10.2) L 04/23/18 05:30 Eosinophils % 0.1 % (0-4.5) 04/23/18 05:30 Eosinophils % (Manual) 0.0 % (0-4.5) 04/23/18 05:30 Basophils % 0.1 % (0-2.0) 04/23/18 05:30 Basophils % (Manual) 0.0 % (0-2.0) 04/23/18 05:30 Myelocytes % (Man) 0 % (0-2) 04/23/18 05:30 Promyelocytes % (Man) 0 % (0-2) 04/23/18 05:30 Blast Cells % (Manual) 0 % (0-0) 04/23/18 05:30 Nucleated RBC % 0 % (0-0) 04/23/18 05:30 Metamyelocytes 0 % (0-2) 04/23/18 05:30 Hypochromia 0 04/23/18 05:30 Platelet Estimate Normal 04/23/18 05:30 Polychromasia 0 04/23/18 05:30 Poikilocytosis 0 04/23/18 05:30 Anisocytosis 1+ 04/23/18 05:30 Microcytosis 0 04/23/18 05:30 Macrocytosis 1+ 04/23/18 05:30 ESR 48 mm/hr (0-30) H 04/23/18 05:30 Sodium 136 mmol/L (136-145) 04/23/18 05:30 Potassium 3.4 mmol/L (3.5-5.1) L 04/23/18 05:30 Chloride 106 mmol/L (98-107) 04/23/18 05:30 Carbon Dioxide 23 mmol/L (21-32) 04/23/18 05:30 Anion Gap 7 MMOL/L (8-16) L 04/23/18 05:30 BUN 17 mg/dL (7-18) 04/23/18 05:30 Creatinine 0.4 mg/dL (0.55-1.3) L 04/23/18 05:30 Creat Clearance w eGFR > 60 (>60) 04/23/18 05:30 POC Glucometer 207 UNITS (80-120) 04/23/18 12:05 Random Glucose 77 mg/dL (74-106) 04/23/18 05:30 Lactic Acid 1.0 mmol/L (0.4-2.0) 04/23/18 05:30 Calcium 7.0 mg/dL (8.5-10.1) L 04/23/18 05:30 Total Bilirubin 0.7 mg/dL (0.2-1) 04/23/18 05:30 GGT 923 U/L (5-85) H 04/23/18 05:30 AST 207 U/L (15-37) H 04/23/18 05:30 ALT 283 U/L (13-61) H 04/23/18 05:30 Alkaline Phosphatase 265 U/L (45-117) H 04/23/18 05:30 Creatine Kinase 40 U/L (26-192) 04/22/18 12:00 CK-MB (CK-2) < 1.0 ng/mL (0.5-3.6) 04/22/18 12:00 Troponin I < 0.02 ng/ml (0.00-0.05) 04/22/18 12:00 C-Reactive Protein 21.3 MG/DL (0.00-0.3) H 04/23/18 05:30 Total Protein 5.0 g/dl (6.4-8.2) L 04/23/18 05:30 Albumin 2.0 g/dl (3.4-5.0) L 04/23/18 05:30 TSH 3.91 uIU/ml (0.358-3.74) H 04/22/18 19:00 Current Medications Generic Name Dose Route Start Last Admin Trade Name Freq PRN Reason Stop Dose Admin Acetaminophen 650 mg 04/23/18 12:25 04/23/18 12:31 Tylenol - PO 650 mg Q8H PRN Administration FEVER Aspirin 81 mg 04/23/18 10:00 04/23/18 10:10 Asa - PO 81 mg DAILY TAYLA Administration Clopidogrel Bisulfate 75 mg 04/23/18 10:00 04/23/18 10:10 Plavix - PO 75 mg DAILY TAYLA Administration Norepinephrine Bitartrate 4, 500 mls @ 22.5 mls/hr 04/22/18 18:45 04/23/18 16 :20 000 mcg/ Dextrose IV 5 mcg/min TITR TAYLA 37.5 mls/hr Titration Protocol 3 MCG/MIN Sodium Chloride 1,000 mls @ 50 mls/hr 04/23/18 08:50 04/23/18 09:20 Normal Saline - IV 50 mls/hr ASDIR TAYLA Administration Vancomycin HCl 750 mg/ 250 mls @ 250 mls/hr 04/23/18 10:00 04/23/18 10:56 Dextrose IVPB 250 mls/hr Q12H TAYLA Administration Protocol Piperacillin Sod/Tazobactam 50 mls @ 100 mls/hr 04/23/18 10:00 04/23/18 10:06 Sod 3.375 gm/ Dextrose IVPB 100 mls/hr Q8H-IV TAYLA Administration Protocol Insulin Aspart 1 vial 04/22/18 22:00 04/23/18 12:49 Novolog Vial Sliding Scale - SQ 4 units ACHS TAYLA Administration Protocol Oseltamivir Phosphate 75 mg 04/22/18 22:00 04/23/18 10:57 Tamiflu - PO 04/27/18 21:59 75 mg BID TAYLA Administration Pantoprazole Sodium 40 mg 04/23/18 10:00 04/23/18 10:10 Protonix - PO 40 mg DAILY TAYLA Administration Primidone 250 mg 04/22/18 22:00 04/23/18 10:57 Mysoline - PO 250 mg BID TAYLA Administration Senna 2 tab 04/23/18 10:00 04/23/18 12:31 Senna - PO 2 tab DAILY TAYLA Administration Silver Sulfadiazine 1 applic 04/23/18 10:00 Silvadene - TP DAILY TAYLA Constitutional: Yes: Other (lethargic) HENT: Yes: Other (right eye periorbital swelling and bruise) Neck: Yes: Supple Cardiovascular: Yes: Regular Rate and Rhythm Respiratory: Yes: Rhonchi (left side) Gastrointestinal Inspection: Yes: Scars (healed Pfannensteil incision) ...Auscultate: Yes: Normoactive Bowel Sounds ...Palpate: Yes: Soft, Other (nontender) ...Rectal Exam: Yes: Deferred (at patient's request) Extremities: Yes: Other (sausage shaped fingers ? scleroderma) Edema: No Neurological: Yes: Lethargy Labs: CBC, BMP 04/23/18 05:30 04/23/18 05:30 INR, PTT INR 1.26 (0.83-1.09) H 04/22/18 12:00 Laboratory Tests 08/24/10 02/17/13 07/16/13 16:42 05:15 05:45 Alkaline Phosphatase 72 82 GGT AST 15 D 32 D ALT 35 D 11/01/13 01/19/14 07/11/14 14:24 06:40 14:16 Alkaline Phosphatase 82 139 H D GGT AST 55 H 39 H D ALT 75 D 05/07/15 05/08/15 05/09/15 02:21 06:00 06:00 Alkaline Phosphatase 172 H D GGT AST 86 H D 108 H D 56 H D ALT 114 H D 136 H 114 H 05/10/15 06/07/15 06/11/15 06:25 19:24 07:23 Alkaline Phosphatase 155 H 138 H GGT AST 13 L D ALT 92 H 30 D 07/04/15 12/14/15 12/15/15 19:40 18:45 08:45 Alkaline Phosphatase GGT AST ALT 49 D 110 H D 97 H 12/16/15 08/30/16 01/23/17 07:20 06:30 06:10 Alkaline Phosphatase 112 GGT AST ALT 96 H 37 D 02/16/17 02/17/17 12/28/17 18:50 05:00 16:59 Alkaline Phosphatase 209 H D 144 H D 131 H GGT AST ALT 12/30/17 12/30/17 01/10/18 05:05 09:56 07:15 Alkaline Phosphatase 71 131 H 93 GGT AST ALT 01/12/18 02/26/18 04/22/18 07:40 20:39 12:00 Alkaline Phosphatase 122 H 124 H 372 H GGT AST 25 464 H ALT 18 480 H 04/23/18 05:30 Alkaline Phosphatase 265 H GGT 923 H AST 207 H ALT 283 H Imaging - Results Cat Scan: Report Reviewed (Delon Sifuentes Name: DONOVAN LEE DEPARTMENT OF RADIOLOGY Phys: Janusz Lux RESIDENT : 1960 Age: 58 Sex : F [facility] Acct: [id number] Loc: BOB [address] [facility] Exam Date: 04/22/18 Status: TUCKER Mckeon Unit Number: [id number] EXAM#: TYPE/EXAM : RESULT: [id number] CT/ABDOMEN PELVIS CT W/O CONTR Abdomen and pelvis CT ( without contrast) Clinical information: status post fall; elevated liver enzymes Multiplanar imaging was performed. As requested no intravenous or enteric contrast was administered. In comparison to an abdomen/pelvic CT study of 01/23/2016 the partially imaged lower chest demonstrates interval development of a left posterior basilar infiltrate as well as a very small right posterior basilar infiltrate. There is minimal to mild right posterior basilar bronchiectasis. No evidence of pneumoperitoneum, free intraperitoneal fluid or bowel obstruction. Atherosclerotic vascular calcifications are seen which appear more prominent than would be expected for the patient's chronologic age. A small gallbladder calculus noted on the previous exam exam is not visualized on the current study. There is no definite biliary tract dilatation. No gross CT evidence of choledocholithiasis. A 3.7 x 1.7 cm fluid focus is seen within the left upper quadrant ventral to the pancreas containing a 0.7 cm radiopaque density (transaxial images 39 - 46). The liver, spleen, pancreas, right adrenal gland and kidneys demonstrate no obvious noncontrast pathology. There is mild stable left adrenal gland thickening. No aortic aneurysm is noted. Several surgical clips are again seen within the lower abdomen ventrally. Diminished concentric subcutaneous fat since the previous exam. Mild bilateral flank subcutaneous edema. Status post hysterectomy as on the prior study. No gross CT evidence of acute appendicitis or diverticulitis allowing for a relative paucity of intra-abdominal fat and contiguous opacified bowels. Diffuse osteoporosis. There is partial imaging of a healed fracture of the right inferior pubic ramus. This fracture may been acute/subacute at the time of the prior CT exam. Status post interval left hip ORIF. IMPRESSION: Bibasilar pulmonary infiltrates, left more prominent than right. Minimal to mild right posterior basilar bronchiectasis. Prominent atherosclerotic thoracic calcifications. A small gallbladder calculus noted on a 2016 CT study is not definitely visualized on the current exam - ? possible interval passage. Correlate clinically. No discrete noncontrast hepatic pathology is identified. Mild stable left adrenal gland thickening which may be due to hyperplasia versus a subcentimeter adenoma. Biochemical evaluation is suggested. A 3.7 x 1.7 cm left upper quadrant fluid structure containing a small radiopaque density is seen ventral to the pancreas possibly representing a slightly distended fluid-filled small bowel loop and probably less likely a pathologic cystic structure. Correlate with two-week follow-up CT preferably with oral contrast. Postsurgical changes. Reported By: Jack Benz MD 04/22/181650 Janusz Lux Technologist: Estuardo Mercado Transcribed Date/Time: 04/22/181650 Racing Board Marker: Jack Benz Printed Date/Time: By: Signed by: Jack Benz Signed on: 16:51) Problem List - Problems (1) Elevated LFTs Assessment/Plan: Given the rapid resolution I agree that these LFT elevations more likely reflect a reactive hepatopathy than shock liver or cholangitis perhaps superimposed on diabetes associated BURNS. I trust the ultrasound more than the CT in 2015 and doubt that there was ever a gallstone. If LFTs begin to rise however an MRCP will need to be pursued. Code(s): R94.5 - ABNORMAL RESULTS OF LIVER FUNCTION STUDIES (2) Cystic mass of pancreas Assessment/Plan: It not not clear whether the CT abnormality is attached to the pancreas and will need a dedicated pancreatic MRI when she is healthy enough. She may ultimately need an EUS. Will order Ca 19.9. Code(s): K86.2 - CYST OF PANCREAS (3) Tubular adenoma of colon Assessment/Plan: Donovan will need surveillance colonoscopy when she is stable enough Code(s): D12.6 - BENIGN NEOPLASM OF COLON, UNSPECIFIED (4) History of cancer of vagina Code(s): Z85.44 - PERSONAL HISTORY OF MALIG NEOPLASM OF FEMALE GENITAL ORGANS (5) Septic shock Code(s): A41.9 - SEPSIS, UNSPECIFIED ORGANISM; R65.21 - SEVERE SEPSIS WITH SEPTIC SHOCK (6) Diabetes mellitus Code(s): E11.9 - TYPE 2 DIABETES MELLITUS WITHOUT COMPLICATIONS (7) Essential tremor Code(s): G25.0 - ESSENTIAL TREMOR (8) Facial contusion Code(s): S00.83XA - CONTUSION OF OTHER PART OF HEAD, INITIAL ENCOUNTER Qualifiers: Encounter type: initial encounter Qualified Code(s): S00.83XA - Contusion of other part of head, initial encounter (9) IDDM (insulin dependent diabetes mellitus) Code(s): E11.9 - TYPE 2 DIABETES MELLITUS WITHOUT COMPLICATIONS; Z79.4 - FDC (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 OF INSULIN (10) CAD (coronary artery disease) Code(s): I25.10 - ATHSCL HEART DISEASE OF [place] CORONARY ARTERY W/O ANG PCTRS (11) Influenza A Code(s): J10.1 - FLU DUE TO OTH IDENT INFLUENZA VIRUS W OTH RESP MANIFEST Assessment/Plan Impression: Reactive hepatopathy rather than shock liver or cholangitis Peripancreatic collection could be a mucinous pancreatic cyst or IPMN and needs further evaluation Plan: MRCP if LFTs rise or other signs of cholangitis ensue Pancreas protocol MRI and possibly EUS when healthy enough Ca 19.9 and IGG4 Ultimately will need tubular adenoma surveillance Dr. Hong will be covering this weekend
[2018-04-23] MEDS ORDERED: ALBUTEROL SO4 0.083% IH SOL 2.5 MG/3 ML VIAL.NEB. NEB PRN (17:59)
[2018-04-23] MEDS ORDERED: DEXTROSE 50%-WATER - 25 GM/50 ML VIAL IVPUSH PRN (18:02)
[2018-04-23] MEDS ORDERED: LACTATED RINGERS SOLUTION 1000 ML INFUS.BAG IV ONE (18:17)
[2018-04-23] MEDS: ALBUTEROL SO4 2.5/IPRATROPIUM 0.5 INH SOL 3 ML VIAL.NEB. NEB SCH (21:05)
[2018-04-23] MEDS: SILVER SULFADIAZINE 1% TOP CREAM 50 GM JAR TP SCH (21:40)
[2018-04-23] MEDS: SODIUM CHLORIDE 1,000 ML IV SCH (21:41)
--- NOTE | 2018-04-24 00:45 | CON.CARD ---
Consult Consult Specialty:: cardiology Reason for Consultation:: s/p fall; hx CAD - History of Present Illness Chief Complaint: Pt alert; denies chest pain History of Present Illness: The patient is a 58 year old white woman with a significant past medical history of IDDM, left tib/fib fracture s/p ORIF 2015, prior admission for DKA - sent to surgeon at [facility] where bone scan displayed left knee septic arthritis, resulting in removal of hardware; CAD-->coronary stents in ?2004, COPD, anxiety, tremors, who presents to the emergency department today complaining of a fall one day ago. The patient states she slipped in the bathtub a day ago and was there until her foreclosure home inspector came and found her there. She denies LOC. She reports pain to her left shoulder and that she hit her right side of her head, where there is now dry blood. The patient also explains that she has had a productive cough well before the fall. - History Source History Provided By: Patient, Medical Record Limitations to Obtaining History: Poor Historian - Past Medical History [employer]: Yes: Peripheral Neuropathy, Seizure, Other (Essential tremor) Cardio/Vascular: Yes: CAD (with stents and CABG), HTN, Hyperlipdemia, [place] Pulmonary: Yes: COPD Gastrointestinal: Yes: Hiatal Hernia, Other (tubular adenoma removed 2011) Hepatobiliary: Yes: Cholelithiasis (seen on 2016 CT but not on sonogram) Reproductive: Yes: Postmenopausal ...: No Musculoskeletal: Yes: Chronic low back pain (lumbar disc disease), Osteoarthritis Rheumatology: Yes: Other (Raynaud's) Endocrine: Yes: Diabetes Mellitus (since age 3), Other (DKA, Hypoglicemia) Dermatology: Yes: Other (sacral ulcer) Additional Medical History: neuropathy, tremors - Past Surgical History Past Surgical History: Yes: CABG (3 stents), Colonoscopy, (x 4), Hysterectomy (TAHBSO), Stent (coronary stents), Upper Endoscopy Additional Surgical History: left tib/fib fracture 2015 with plate that was removed 12/31 for MSSA infection. left hip fx ORIF. bilateral carpal tunnel surgeries. 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 History of Recent Travel: No Home Medications - Allergies Allergies/Adverse Reactions: Allergies Allergy/AdvReac Type Severity Reaction Status Date / Time No Known Drug Allergies Allergy Verified 04/22/18 12:24 - Home Medications Home Medications: Ambulatory Orders Aspirin 81 mg PO DAILY 03/12/17 Clopidogrel Bisulfate [Plavix] 75 mg PO DAILY 03/12/17 Primidone [Mysoline] 250 mg PO BID 03/12/17 Insulin (Levemir) [Levemir Vial] 7 units SQ BID@0700,2200 units 01/12/18 Insulin Sliding Scale [Novolog Vial Sliding Scale -] 0 - 10 vial SQ ACHS units 01/12/18 Silver Sulfadiazine 1% Top Cr [Silvadene -] 1 applic TP DAILY jar 01/12/18 Acetaminophen [Tylenol .Regular Strength -] 975 mg PO Q6H PRN 02/27/18 Ascorbate Calcium [Vitamin C] 500 mg PO DAILY 02/27/18 Atorvastatin Ca [Lipitor] 20 mg PO HS 02/27/18 Capsaicin/Menthol [Salonpas Gel-Patch Hot] 1 each TP DAILY 02/27/18 Nystatin Ointment [Mycostatin Ointment -] 1 applic TP TID 02/27/18 Oxycodone HCl 10 mg PO Q4H PRN 02/27/18 Pantoprazole Sodium 40 mg PO DAILY 02/27/18 Sennosides [Senna] 17.2 mg PO DAILY 02/27/18 Triamcinolone 0.1% Cream [Aristocort] 1 applic TP BID 02/27/18 Family Disease History - Family Disease History Family Disease History: Heart Disease: Mother ( [place] age 87), Respiratory: Sister (asthma), Other: Father (intestinal volvulus), Daughter (bipolar committed suicide) Review of Systems - Review of Systems Constitutional: reports: Fever, Weakness Eyes: reports: No Symptoms HENT: reports: No Symptoms Neck: reports: No Symptoms Cardiovascular: reports: Shortness of Breath Respiratory: reports: Exercise Intolerance, SOB Gastrointestinal: reports: No Symptoms Genitourinary: reports: No Symptoms Breasts: reports: No Symptoms Reported Musculoskeletal: reports: Muscle Weakness Integumentary: reports: No Symptoms Neurological: reports: Tremors, Weakness Endocrine: reports: No Symptoms Psychiatric: reports: Anxiety - Risk Factors Known Risk Factors: Yes: Age, Physical Inactivity, Smoking (former) Vital Signs: Vital Signs Temperature 98.8 F 04/23/18 22:00 Pulse Rate 64 04/24/18 00:00 Respiratory Rate 18 04/24/18 00:00 Blood Pressure 130/40 L 04/24/18 00:00 O2 Sat by Pulse Oximetry (%) 100 04/23/18 22:00 Constitutional: Yes: Calm, Cachectic Eyes: Yes: WNL HENT: Yes: WNL Neck: Yes: WNL Respiratory: Yes: Tachypnea Gastrointestinal: Yes: Soft Renal/: No: Anuria Cardiovascular: Yes: Tachycardia JVD: No Carotid Bruit: No PMI: Non-Displaced Heart Sounds: Yes: S1, S2 Musculoskeletal: Yes: Muscle Weakness Extremities: Yes: Cool Edema: No Peripheral Pulses WNL: No Peripheral Pulses: 1+ Left Doralis Pedis, 1+ Right Dorsalis Pedis Integumentary: Yes: Other Neurological: Yes: Alert, Oriented, Weakness Psychiatric: Yes: Alert, Oriented - Other Data Labs, Other Data: CBC, BMP 04/23/18 05:30 04/23/18 05:30 INR, PTT INR 1.26 (0.83-1.09) H 04/22/18 12:00 Abnormal Lab Results 04/22/18 04/23/18 04/23/18 14:30 05:30 05:30 RBC 2.77 L Hgb 9.9 L Hct 28.7 L MCV 103.5 H MCH 35.8 H Neutrophils % 84.5 H Monocytes % 2.5 L Monocytes % (Manual) 3 L ESR 48 H Potassium 3.4 L Anion Gap 7 L Creatinine 0.4 L Calcium 7.0 L GGT 923 H AST 207 H ALT 283 H Alkaline Phosphatase 265 H C-Reactive Protein 21.3 H Total Protein 5.0 L Albumin 2.0 L Antibody Screen Positive H Prior Cardiac Procedures: PTCA with Stent Ejection Fraction %: LVEF > or = 40 % Imaging - Results Chest X-ray: Image Reviewed EKG: Image Reviewed (NSR; LAE) Problem List - Problems (1) S/P coronary artery stent placement Code(s): Z95.5 - PRESENCE OF CORONARY ANGIOPLASTY IMPLANT AND GRAFT (2) Fall Code(s): W19.XXXA - UNSPECIFIED FALL, INITIAL ENCOUNTER (3) Hypokalemia Assessment/Plan: Replete K, and keep 4.0-4.5. F/u Mg and PO4. 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 On IVF; f/u BUN/Cr, Is and Os, daily weight. Antibiotics per ID. Code(s): A41.9 - SEPSIS, UNSPECIFIED ORGANISM; R65.21 - SEVERE SEPSIS WITH SEPTIC SHOCK (7) Dehydration Assessment/Plan: No JVD; no acute pathology on CXR; elevated BUN; hypotensive. IV fluids. F/u Is and Os Code(s): E86.0 - DEHYDRATION (8) Elevated LFTs Assessment/Plan: Acute elevation; likely due to hypotension. Code(s): R94.5 - ABNORMAL RESULTS OF LIVER FUNCTION STUDIES Assessment/Plan CCU time spent: 75 minutes.
[2018-04-24] MEDS ORDERED: PIPERACILLIN/TAZOBACTAM 3.375 GM VIAL IVPB ONE ×3 (02:36→17:45)
[2018-04-24] MEDS ORDERED: DEXTROSE 5%-WATER - 50 ML IVPB ONE ×2 (02:37→09:14)
[2018-04-24] MEDS: PIPERACILLIN/TAZOB 3.375 GM 3.375 GM in DEXTROSE 5%-WATER - 50 ML IVPB SCH ×3 (02:43→17:50)
[2018-04-24] MEDS: INSULIN SLIDING SCALE (NOVOLOG) 1 VIAL SQ SCH ×4 (06:38→21:28)
[2018-04-24 07:11] LABS: BASO % 0.3 % (0-2.0); EOS % 0.2 % (0-4.5); HEMATOCRIT 29.1 % (32.4-45.2); HEMOGLOBIN 9.9 GM/dL (10.7-15.3); LYMPH % 10.8 % (8-40); MCH 35.8 pg (25.7-33.7); MCHC 33.9 g/dl (32.0-36.0); MEAN CELL VOLUME 105.5 fl (80-96); MEAN PLT VOLUME 9.2 fl (7.5-11.1); MONO % 3.5 % (3.8-10.2); NEUT % 85.2 % (42.8-82.8); PLATELET COUNT 186 K/MM3 (134-434); RBC 2.76 M/mm3 (3.60-5.2); RDW 12.6 % (11.6-15.6); WHITE BLOOD COUNT 6.8 K/mm3 (4.0-10.0)
[2018-04-24 07:53] LABS: ALBUMIN 1.8 g/dl (3.4-5.0); ALK PHOS 309 U/L (45-117); ANION GAP 13 MMOL/L (8-16); BILIRUBIN,TOTAL 0.8 mg/dL (0.2-1); BLOOD UREA NITROGEN 13 mg/dL (7-18); CALCIUM 7.4 mg/dL (8.5-10.1); CHLORIDE 105 mmol/L (98-107); CO2 18 mmol/L (21-32); CREATININE 0.3 mg/dL (0.55-1.3); GLUCOSE,RANDOM 256 mg/dL (74-106); MAGNESIUM 1.8 mg/dL (1.8-2.4); PHOSPHOROUS 2.2 mg/dL (2.5-4.9); POTASSIUM 4.3 mmol/L (3.5-5.1); SGOT/AST 115 U/L (15-37); SGPT/ALT 197 U/L (13-61); SODIUM 135 mmol/L (136-145); TOT PROT 4.8 g/dl (6.4-8.2)
--- NOTE | 2018-04-24 08:16 | PN ---
Progress Note (short form) - Note Progress Note: PULM/CCM Pt Seen & Examined in the ICU. Defervesced. WBC normalized. CA+OX3. Marked improvement. Resting comfortable. No complaints Active Medications Acetaminophen (Tylenol -) 650 mg PO Q8H PRN PRN Reason: FEVER Last Admin: 04/24/18 21:19 Dose: 650 mg Albuterol Sulfate (Ventolin 0.083% Nebulizer Soln -) 1 amp NEB Q4H PRN PRN Reason: SHORT OF BREATH/WHEEZING Albuterol/Ipratropium (Duoneb -) 1 amp NEB RQID [facility] Last Admin: 04/24/18 20:20 Dose: 1 amp Aspirin (Asa -) 81 mg PO DAILY [facility] Last Admin: 04/24/18 09:19 Dose: 81 mg Clopidogrel Bisulfate (Plavix -) 75 mg PO DAILY [facility] Last Admin: 04/24/18 09:20 Dose: 75 mg Dextrose (D50w (Vial) -) 25 gm IVPUSH PRN PRN PRN Reason: Hypoglycemia BGM<70 Norepinephrine Bitartrate 4, (000 mcg/ Dextrose) 500 mls @ 22.5 mls/hr IV TITR [facility]; Protocol Last Admin: 04/23/18 21:41 Dose: Not Given Vancomycin HCl 750 mg/ (Dextrose) 250 mls @ 250 mls/hr IVPB Q12H [facility]; Protocol Last Admin: 04/24/18 21:17 Dose: 250 mls/hr Piperacillin Sod/Tazobactam (Sod 3.375 gm/ Dextrose) 50 mls @ 100 mls/hr IVPB Q8H-IV [facility]; Protocol Last Admin: 04/24/18 17:50 Dose: 100 mls/hr Sodium Chloride (Normal Saline -) 1,000 mls @ 100 mls/hr IV ASDIR [facility] Last Admin: 04/24/18 17:35 Dose: 100 mls/hr Insulin Aspart (Novolog Vial Sliding Scale -) 1 vial SQ ACHS [facility]; Protocol Last Admin: 04/24/18 21:28 Dose: 4 units Oseltamivir Phosphate (Tamiflu -) 75 mg PO BID [facility] Stop: 04/27/18 21:59 Last Admin: 04/24/18 21:19 Dose: 75 mg Pantoprazole Sodium (Protonix -) 40 mg PO DAILY [facility] Last Admin: 04/24/18 09:21 Dose: 40 mg Primidone (Mysoline -) 250 mg PO BID [facility] Last Admin: 04/24/18 21:19 Dose: 250 mg Senna (Senna -) 2 tab PO DAILY [facility] Last Admin: 04/24/18 09:21 Dose: 2 tab Silver Sulfadiazine (Silvadene -) 1 applic TP DAILY [facility] Last Admin: 04/24/18 09:21 Dose: 1 applic Vital Signs Period Temp Pulse Resp BP Sys/Chen Pulse Ox Last 24 Hr 98.2 F-102 F 70-97 18-23 101-132/38-81 100-100 Intake & Output 04/22/18 04/23/18 04/24/18 04/25/18 23:59 23:59 23:59 23:59 Intake Total 2400 4876 3925 Output Total 200 1500 2400 Balance 2200 3376 1525 Weight 44.271 kg 43.998 kg Constitutional: Yes: NAD, awake and alert Eyes: Yes: Conjunctiva Clear, EOM Intact, PERRL HENT: Yes: Other (right lateral lower temporal area with healing laceration surrounding by 2-3cm of ecchymosis, without tenderness/bleeding/erythema/ swelling or discharge. dried blood in hair.). No: Epistaxis, Pharyngeal Erythema, Thrush Neck: Yes: Supple, Trachea Midline. No: Lymphadenopathy, Rigid, Tenderness, Thyromegaly Cardiovascular: Yes: Regular Rate and Rhythm, S1, S2. No: Murmur Respiratory: Yes: Bibasilar rhonchi: Right > Left Gastrointestinal: Yes: Normal Bowel Sounds, Soft Edema: No Peripheral Pulses WNL: Yes Integumentary: Yes: Laceration, Pressure Ulcer (stage 1 pressure with [id number] ulcer on left upper buttocks and small ulcer at base of right shoulder and left knee with scab) Neurological: Yes: Alert, Oriented, Tremors (resting diffuse tremors in b/l UE and head) ...Motor Strength: LUE (3/5 hand precision lens polisher), LLE (3/5 hip extension), RUE (2/5 hand precision lens polisher, unable to fully extend shoulder), RLE (3/5 hip extension) Labs: CBC, BMP 04/24/18 05:05 04/24/18 05:05 INR, PTT INR 1.26 (0.83-1.09) H 04/22/18 12:00 CXR 04/23: A single view of the chest has been submitted. Since 1816 hours on 2018, there is a new infiltrate with some questionable fluid on the left. There may be some atelectasis at the right base. The right jugular line persists. Again noted are degenerative changes with old trauma involving the proximal left humerus. Correlation recommended. Septic Shock due to Influenza / LLL PNA / R.O decubitus ulcers COPD Essential tremor Transminitis DM ABX per ID IVF Pressors to maintain MAP > 65 Follow cultures Trend LFTs Tamiflu PO as tolerated O2 as needed Plavix / ASA BD TX PRN Noted GI and Cardiology has been called for evaluation D/c --> Home DGL, ACNP-BC [facility] ICU PULM/CCM 4434 Critical Care Total Critical Care Time (in minutes): 38 Critical Care Statement: The care of this patient involved high complexity decision making to prevent further life threatening deterioration of the patient 's condition and/or to evaluate & treat vital organ system(s) failure or risk of failure.
[2018-04-24] MEDS: ALBUTEROL SO4 2.5/IPRATROPIUM 0.5 INH SOL 3 ML VIAL.NEB. NEB SCH ×4 (08:38→20:20)
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
[2018-04-24] MEDS: ASPIRIN 81 MG CHEWABLE TABLETS PO SCH (09:19)
[2018-04-24] MEDS: CLOPIDOGREL BISULFATE 75 MG TABLET (FP) PO SCH (09:20)
[2018-04-24] MEDS: SENNOSIDES 8.6MG TABLET (FP) PO SCH (09:21)
[2018-04-24] MEDS: SILVER SULFADIAZINE 1% TOP CREAM 50 GM JAR TP SCH (09:21)
[2018-04-24] MEDS: PANTOPRAZOLE 40 MG TABLET (FP) PO SCH (09:21)
[2018-04-24] MEDS ORDERED: PT OWN MED DRAWER 7, Y5N ONE (09:34)
[2018-04-24] MEDS: OSELTAMIVIR PHOSPHATE 75 MG CAPSULE PO SCH ×2 (09:35→21:19)
[2018-04-24] MEDS: VANCOMYCIN 750 MG in DEXTROSE 5%-WATER - 250 ML IVPB SCH ×2 (09:35→21:17)
[2018-04-24] MEDS: PRIMIDONE 250 MG TABLET PO SCH ×2 (09:36→21:19)
[2018-04-24 10:18] LABS: ANISOCYTOSIS 1+; MACROCYTOSIS 1+; OVALOCYTE 1+; PLATELET ESTIMATE NORMAL
--- NOTE | 2018-04-24 10:25 | PN ---
Progress Note, Physician History of Present Illness: The patient is a 58 year old white woman with a significant past medical history of IDDM, left tib/fib fracture s/p ORIF 2015, prior admission for DKA - sent to surgeon at [facility] where bone scan displayed left knee septic arthritis, resulting in removal of hardware; CAD-->coronary stents in ?2004, COPD, anxiety, tremors, who presents to the emergency department today complaining of a fall one day ago. 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 She denies LOC. She reports pain to her left shoulder and that she hit her right side of her head, where there is now dry blood. The patient also explains that she has had a productive cough well before the fall. - Current Medication List Current Medications: Active Medications Acetaminophen (Tylenol -) 650 mg PO Q8H PRN PRN Reason: FEVER Last Admin: 04/23/18 12:31 Dose: 650 mg Albuterol Sulfate (Ventolin 0.083% Nebulizer Soln -) 1 amp NEB Q4H PRN PRN Reason: SHORT OF BREATH/WHEEZING Albuterol/Ipratropium (Duoneb -) 1 amp NEB RQID [facility] Last Admin: 04/24/18 08:38 Dose: Not Given Aspirin (Asa -) 81 mg PO DAILY [facility] Last Admin: 04/24/18 09:19 Dose: 81 mg Clopidogrel Bisulfate (Plavix -) 75 mg PO DAILY [facility] Last Admin: 04/24/18 09:20 Dose: 75 mg Dextrose (D50w (Vial) -) 25 gm IVPUSH PRN PRN PRN Reason: Hypoglycemia BGM<70 Norepinephrine Bitartrate 4, (000 mcg/ Dextrose) 500 mls @ 22.5 mls/hr IV TITR [facility]; Protocol Last Admin: 04/23/18 21:41 Dose: Not Given Vancomycin HCl 750 mg/ (Dextrose) 250 mls @ 250 mls/hr IVPB Q12H [facility]; Protocol Last Admin: 04/24/18 09:35 Dose: 250 mls/hr Piperacillin Sod/Tazobactam (Sod 3.375 gm/ Dextrose) 50 mls @ 100 mls/hr IVPB Q8H-IV [facility]; Protocol Last Admin: 04/24/18 09:36 Dose: 100 mls/hr Sodium Chloride (Normal Saline -) 1,000 mls @ 100 mls/hr IV ASDIR [facility] Last Admin: 04/23/18 21:41 Dose: 100 mls/hr Insulin Aspart (Novolog Vial Sliding Scale -) 1 vial SQ ACHS [facility]; Protocol Last Admin: 04/24/18 06:38 Dose: 4 units Oseltamivir Phosphate (Tamiflu -) 75 mg PO BID [facility] Stop: 04/27/18 21:59 Last Admin: 04/24/18 09:35 Dose: 75 mg Pantoprazole Sodium (Protonix -) 40 mg PO DAILY [facility] Last Admin: 04/24/18 09:21 Dose: 40 mg Primidone (Mysoline -) 250 mg PO BID [facility] Last Admin: 04/24/18 09:36 Dose: 250 mg Senna (Senna -) 2 tab PO DAILY [facility] Last Admin: 04/24/18 09:21 Dose: 2 tab Silver Sulfadiazine (Silvadene -) 1 applic TP DAILY [facility] Last Admin: 04/24/18 09:21 Dose: 1 applic - Objective Vital Signs: Vital Signs Temperature 98.2 F 04/24/18 02:00 Pulse Rate 85 04/24/18 08:00 Respiratory Rate 18 04/24/18 08:26 Blood Pressure 122/54 L 04/24/18 06:00 O2 Sat by Pulse Oximetry (%) 100 04/24/18 08:26 Eyes: Yes: WNL, Conjunctiva Clear, EOM Intact HENT: Yes: WNL, Atraumatic, Normocephalic Neck: Yes: WNL, Supple, Trachea Midline Cardiovascular: Yes: WNL, Regular Rate and Rhythm Respiratory: Yes: WNL, Regular, CTA Bilaterally Gastrointestinal: Yes: WNL, Normal Bowel Sounds Genitourinary: Yes: WNL Musculoskeletal: Yes: WNL Extremities: Yes: WNL Edema: No Integumentary: Yes: WNL Neurological: Yes: WNL, Alert, Oriented ...Motor Strength: WNL Psychiatric: Yes: WNL Labs: CBC, BMP 04/24/18 05:05 04/24/18 05:05 INR, PTT INR 1.26 (0.83-1.09) H 04/22/18 12:00 Assessment/Plan - Problems (1) S/P coronary artery stent placement Code(s): Z95.5 - PRESENCE OF CORONARY ANGIOPLASTY IMPLANT AND GRAFT (2) Fall Code(s): W19.XXXA - UNSPECIFIED FALL, INITIAL ENCOUNTER (3) Hypokalemia Assessment/Plan: Replete K, and keep 4.0-4.5. F/u Mg and PO4. 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 On IVF; f/u BUN/Cr, Is and Os, daily weight. Antibiotics per ID. Code(s): A41.9 - SEPSIS, UNSPECIFIED ORGANISM; R65.21 - SEVERE SEPSIS WITH SEPTIC SHOCK (7) Dehydration Assessment/Plan: No JVD; no acute pathology on CXR; elevated BUN; hypotensive. IV fluids. F/u Is and Os Code(s): E86.0 - DEHYDRATION (8) Elevated LFTs Assessment/Plan: Acute elevation; likely due to hypotension. Code(s): R94.5 - ABNORMAL RESULTS OF LIVER FUNCTION STUDIES Assessment/Plan cc time spent: 35 minutes.
--- NOTE | 2018-04-24 11:14 | PN ---
Progress Note, Physician History of Present Illness: AWAKE, ALERT NO COMPLAINTS + TREMORS DENIES CHEST PAIN/ DYSPNEA/ COUGH TEMPS DOWN AFEBRILE WBC WNL BC (-) LEGIONELLA/ PNEUMOCOCCAL AG (-) LFTS IMPROVED - Current Medication List Current Medications: Active Medications Acetaminophen (Tylenol -) 650 mg PO Q8H PRN PRN Reason: FEVER Last Admin: 04/23/18 12:31 Dose: 650 mg Albuterol Sulfate (Ventolin 0.083% Nebulizer Soln -) 1 amp NEB Q4H PRN PRN Reason: SHORT OF BREATH/WHEEZING Albuterol/Ipratropium (Duoneb -) 1 amp NEB RQID [facility] Last Admin: 04/24/18 08:38 Dose: Not Given Aspirin (Asa -) 81 mg PO DAILY [facility] Last Admin: 04/24/18 09:19 Dose: 81 mg Clopidogrel Bisulfate (Plavix -) 75 mg PO DAILY [facility] Last Admin: 04/24/18 09:20 Dose: 75 mg Dextrose (D50w (Vial) -) 25 gm IVPUSH PRN PRN PRN Reason: Hypoglycemia BGM<70 Norepinephrine Bitartrate 4, (000 mcg/ Dextrose) 500 mls @ 22.5 mls/hr IV TITR [facility]; Protocol Last Admin: 04/23/18 21:41 Dose: Not Given Vancomycin HCl 750 mg/ (Dextrose) 250 mls @ 250 mls/hr IVPB Q12H [facility]; Protocol Last Admin: 04/24/18 09:35 Dose: 250 mls/hr Piperacillin Sod/Tazobactam (Sod 3.375 gm/ Dextrose) 50 mls @ 100 mls/hr IVPB Q8H-IV [facility]; Protocol Last Admin: 04/24/18 09:36 Dose: 100 mls/hr Sodium Chloride (Normal Saline -) 1,000 mls @ 100 mls/hr IV ASDIR [facility] Last Admin: 04/23/18 21:41 Dose: 100 mls/hr Insulin Aspart (Novolog Vial Sliding Scale -) 1 vial SQ ACHS [facility]; Protocol Last Admin: 04/24/18 06:38 Dose: 4 units Oseltamivir Phosphate (Tamiflu -) 75 mg PO BID [facility] Stop: 04/27/18 21:59 Last Admin: 04/24/18 09:35 Dose: 75 mg Pantoprazole Sodium (Protonix -) 40 mg PO DAILY [facility] Last Admin: 04/24/18 09:21 Dose: 40 mg Primidone (Mysoline -) 250 mg PO BID [facility] Last Admin: 04/24/18 09:36 Dose: 250 mg Senna (Senna -) 2 tab PO DAILY [facility] Last Admin: 04/24/18 09:21 Dose: 2 tab Silver Sulfadiazine (Silvadene -) 1 applic TP DAILY [facility] Last Admin: 04/24/18 09:21 Dose: 1 applic - Objective Vital Signs: Vital Signs Temperature 98.2 F 04/24/18 02:00 Pulse Rate 85 04/24/18 08:00 Respiratory Rate 18 04/24/18 08:26 Blood Pressure 122/54 L 04/24/18 06:00 O2 Sat by Pulse Oximetry (%) 100 04/24/18 08:26 Constitutional: Yes: No Distress, Thin Cardiovascular: Yes: Regular Rate and Rhythm, S1, S2 Respiratory: Yes: Rhonchi Gastrointestinal: Yes: Normal Bowel Sounds, Soft. No: Tenderness Edema: No Labs: CBC, BMP 04/24/18 05:05 04/24/18 05:05 INR, PTT INR 1.26 (0.83-1.09) H 04/22/18 12:00 Assessment/Plan ACUTE INFLUENZA A ? PNEUMONIA (HCAP) SEPSIS/ SEPTIC SHOCK ELEVATED LFTS IMPROVED CONTINUE EMPIRIC ZOSYN/ VANCOMYCIN PRESSORS CONTINUE TAMIFLU ISOLATION
[2018-04-24 12:37] VITALS: BMI 16.1
[2018-04-24] MEDS ORDERED: IBUPROFEN 600 MG TABLET (FP) PO ONE (16:15)
[2018-04-24] MEDS: SODIUM CHLORIDE 1,000 ML IV SCH (17:35)
[2018-04-24] MEDS: ACETAMINOPHEN 325 MG TABLET (FP) PO PRN (21:19)
[2018-04-25] MEDS: PIPERACILLIN/TAZOB 3.375 GM 3.375 GM in DEXTROSE 5%-WATER - 50 ML IVPB SCH ×3 (01:12→17:15)
[2018-04-25] MEDS: NOREPINEPHRINE BITARTRATE 4,000 MCG in DEXTROSE 5%-WATER - 496 ML IV SCH ×2 (05:31→19:15)
[2018-04-25 05:56] LABS: BASO % 0.1 % (0-2.0); HEMATOCRIT 24.2 % (32.4-45.2); HEMOGLOBIN 8.3 GM/dL (10.7-15.3); LYMPH % 18.9 % (8-40); MCH 36.1 pg (25.7-33.7); MCHC 34.3 g/dl (32.0-36.0); MEAN CELL VOLUME 105.4 fl (80-96); MEAN PLT VOLUME 8.8 fl (7.5-11.1); MONO % 6.3 % (3.8-10.2); NEUT % 73.7 % (42.8-82.8); PLATELET COUNT 174 K/MM3 (134-434); RDW 12.9 % (11.6-15.6); WHITE BLOOD COUNT 5.4 K/mm3 (4.0-10.0)
[2018-04-25] MEDS: INSULIN SLIDING SCALE (NOVOLOG) 1 VIAL SQ SCH ×4 (06:23→22:03)
[2018-04-25 06:29] LABS: ALBUMIN 1.6 g/dl (3.4-5.0); ALK PHOS 302 U/L (45-117); ANION GAP 10 MMOL/L (8-16); BILIRUBIN,TOTAL 0.6 mg/dL (0.2-1); BLOOD UREA NITROGEN 13 mg/dL (7-18); CALCIUM 7.2 mg/dL (8.5-10.1); CHLORIDE 104 mmol/L (98-107); CO2 19 mmol/L (21-32); CREATININE 0.5 mg/dL (0.55-1.3); POTASSIUM 3.7 mmol/L (3.5-5.1); SGOT/AST 56 U/L (15-37); SGPT/ALT 132 U/L (13-61); SODIUM 133 mmol/L (136-145); TOT PROT 4.3 g/dl (6.4-8.2)
[2018-04-25 07:51] LABS: GLUCOSE,RANDOM 342 mg/dL (74-106)
[2018-04-25] MEDS: ALBUTEROL SO4 2.5/IPRATROPIUM 0.5 INH SOL 3 ML VIAL.NEB. NEB SCH ×4 (08:40→20:52)
[2018-04-25] MEDS ORDERED: PIPERACILLIN/TAZOBACTAM 3.375 GM VIAL IVPB ONE ×2 (08:55→17:08)
[2018-04-25] MEDS ORDERED: DEXTROSE 5%-WATER - 50 ML IVPB ONE ×2 (08:55→17:08)
[2018-04-25] MEDS ORDERED: PT OWN MED DRAWER 7, Y5N ONE ×2 (08:55→20:33)
[2018-04-25] MEDS: ASPIRIN 81 MG CHEWABLE TABLETS PO SCH (09:00)
[2018-04-25] MEDS: OSELTAMIVIR PHOSPHATE 75 MG CAPSULE PO SCH ×2 (09:01→23:02)
[2018-04-25] MEDS: PANTOPRAZOLE 40 MG TABLET (FP) PO SCH (09:01)
[2018-04-25] MEDS: CLOPIDOGREL BISULFATE 75 MG TABLET (FP) PO SCH (09:01)
[2018-04-25] MEDS: SILVER SULFADIAZINE 1% TOP CREAM 50 GM JAR TP SCH (09:02)
[2018-04-25] MEDS: SENNOSIDES 8.6MG TABLET (FP) PO SCH (09:02)
[2018-04-25] MEDS: PRIMIDONE 250 MG TABLET PO SCH ×2 (09:02→23:02)
[2018-04-25] MEDS: VANCOMYCIN 750 MG in DEXTROSE 5%-WATER - 250 ML IVPB SCH ×2 (09:03→22:13)
--- NOTE | 2018-04-25 10:27 | PN ---
Progress Note, Physician History of Present Illness: The patient is a 58 year old white woman with a significant past medical history of IDDM, left tib/fib fracture s/p ORIF 2015, prior admission for DKA - sent to surgeon at [facility] where bone scan displayed left knee septic arthritis, resulting in removal of hardware; CAD-->coronary stents in ?2004, COPD, anxiety, tremors, who presents to the emergency department today complaining of a fall one day ago. 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 She denies LOC. She reports pain to her left shoulder and that she hit her right side of her head, where there is now dry blood. The patient also explains that she has had a productive cough well before the fall. - Current Medication List Current Medications: Active Medications Acetaminophen (Tylenol -) 650 mg PO Q8H PRN PRN Reason: FEVER Last Admin: 04/24/18 21:19 Dose: 650 mg Albuterol Sulfate (Ventolin 0.083% Nebulizer Soln -) 1 amp NEB Q4H PRN PRN Reason: SHORT OF BREATH/WHEEZING Albuterol/Ipratropium (Duoneb -) 1 amp NEB RQID [facility] Last Admin: 04/25/18 08:40 Dose: Not Given Aspirin (Asa -) 81 mg PO DAILY [facility] Last Admin: 04/25/18 09:00 Dose: 81 mg Clopidogrel Bisulfate (Plavix -) 75 mg PO DAILY [facility] Last Admin: 04/25/18 09:01 Dose: 75 mg Dextrose (D50w (Vial) -) 25 gm IVPUSH PRN PRN PRN Reason: Hypoglycemia BGM<70 Norepinephrine Bitartrate 4, (000 mcg/ Dextrose) 500 mls @ 22.5 mls/hr IV TITR [facility]; Protocol Last Admin: 04/25/18 05:31 Dose: Not Given Vancomycin HCl 750 mg/ (Dextrose) 250 mls @ 250 mls/hr IVPB Q12H [facility]; Protocol Last Admin: 04/25/18 09:03 Dose: 250 mls/hr Piperacillin Sod/Tazobactam (Sod 3.375 gm/ Dextrose) 50 mls @ 100 mls/hr IVPB Q8H-IV [facility]; Protocol Last Admin: 04/25/18 09:03 Dose: 100 mls/hr Sodium Chloride (Normal Saline -) 1,000 mls @ 100 mls/hr IV ASDIR [facility] Last Admin: 04/24/18 17:35 Dose: 100 mls/hr Insulin Aspart (Novolog Vial Sliding Scale -) 1 vial SQ ACHS [facility]; Protocol Last Admin: 04/25/18 06:23 Dose: 8 units Oseltamivir Phosphate (Tamiflu -) 75 mg PO BID [facility] Stop: 04/27/18 21:59 Last Admin: 04/25/18 09:01 Dose: 75 mg Pantoprazole Sodium (Protonix -) 40 mg PO DAILY [facility] Last Admin: 04/25/18 09:01 Dose: 40 mg Primidone (Mysoline -) 250 mg PO BID [facility] Last Admin: 04/25/18 09:02 Dose: 250 mg Senna (Senna -) 2 tab PO DAILY [facility] Last Admin: 04/25/18 09:02 Dose: Not Given Silver Sulfadiazine (Silvadene -) 1 applic TP DAILY [facility] Last Admin: 04/25/18 09:02 Dose: 1 applic - Objective Vital Signs: Vital Signs Temperature 98 F 04/25/18 08:25 Pulse Rate 77 04/25/18 08:25 Respiratory Rate 19 04/25/18 08:27 Blood Pressure 117/54 L 04/25/18 08:25 O2 Sat by Pulse Oximetry (%) 99 04/25/18 08:27 Eyes: Yes: WNL, Conjunctiva Clear, EOM Intact HENT: Yes: WNL, Atraumatic, Normocephalic Neck: Yes: WNL, Supple, Trachea Midline Cardiovascular: Yes: WNL, Regular Rate and Rhythm Respiratory: Yes: WNL, Regular, CTA Bilaterally Gastrointestinal: Yes: WNL, Normal Bowel Sounds Genitourinary: Yes: WNL Musculoskeletal: Yes: WNL Extremities: Yes: WNL Edema: No Integumentary: Yes: WNL Neurological: Yes: WNL, Alert, Oriented ...Motor Strength: WNL Psychiatric: Yes: WNL Labs: CBC, BMP 04/25/18 05:30 04/25/18 05:30 INR, PTT INR 1.26 (0.83-1.09) H 04/22/18 12:00 Assessment/Plan - Problems (1) S/P coronary artery stent placement Code(s): Z95.5 - PRESENCE OF CORONARY ANGIOPLASTY IMPLANT AND GRAFT (2) Fall Code(s): W19.XXXA - UNSPECIFIED FALL, INITIAL ENCOUNTER (3) Hypokalemia Assessment/Plan: Replete K, and keep 4.0-4.5. F/u Mg and PO4. 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 On IVF; f/u BUN/Cr, Is and Os, daily weight. Antibiotics per ID. Code(s): A41.9 - SEPSIS, UNSPECIFIED ORGANISM; R65.21 - SEVERE SEPSIS WITH SEPTIC SHOCK (7) Dehydration Assessment/Plan: No JVD; no acute pathology on CXR; elevated BUN; hypotensive. IV fluids. F/u Is and Os Code(s): E86.0 - DEHYDRATION (8) Elevated LFTs Assessment/Plan: Acute elevation; likely due to hypotension. Code(s): R94.5 - ABNORMAL RESULTS OF LIVER FUNCTION STUDIES Assessment/Plan cc time spent: 35 minutes.
--- NOTE | 2018-04-25 11:55 | PN ---
Progress Note, Physician History of Present Illness: AWAKE, ALERT SPIKED TEMP 102 OVERNIGHT NO COMPLAINTS LESS TREMOR DENIES CHEST PAIN/ DYSPNEA/ COUGH WBC WNL BC (-) LEGIONELLA/ PNEUMOCOCCAL AG (-) LFTS IMPROVED - Current Medication List Current Medications: Active Medications Acetaminophen (Tylenol -) 650 mg PO Q8H PRN PRN Reason: FEVER Last Admin: 04/24/18 21:19 Dose: 650 mg Albuterol Sulfate (Ventolin 0.083% Nebulizer Soln -) 1 amp NEB Q4H PRN PRN Reason: SHORT OF BREATH/WHEEZING Albuterol/Ipratropium (Duoneb -) 1 amp NEB RQID [facility] Last Admin: 04/25/18 11:16 Dose: Not Given Aspirin (Asa -) 81 mg PO DAILY [facility] Last Admin: 04/25/18 09:00 Dose: 81 mg Clopidogrel Bisulfate (Plavix -) 75 mg PO DAILY [facility] Last Admin: 04/25/18 09:01 Dose: 75 mg Dextrose (D50w (Vial) -) 25 gm IVPUSH PRN PRN PRN Reason: Hypoglycemia BGM<70 Norepinephrine Bitartrate 4, (000 mcg/ Dextrose) 500 mls @ 22.5 mls/hr IV TITR [facility]; Protocol Last Admin: 04/25/18 05:31 Dose: Not Given Vancomycin HCl 750 mg/ (Dextrose) 250 mls @ 250 mls/hr IVPB Q12H [facility]; Protocol Last Admin: 04/25/18 09:03 Dose: 250 mls/hr Piperacillin Sod/Tazobactam (Sod 3.375 gm/ Dextrose) 50 mls @ 100 mls/hr IVPB Q8H-IV [facility]; Protocol Last Admin: 04/25/18 09:03 Dose: 100 mls/hr Sodium Chloride (Normal Saline -) 1,000 mls @ 100 mls/hr IV ASDIR [facility] Last Admin: 04/24/18 17:35 Dose: 100 mls/hr Insulin Aspart (Novolog Vial Sliding Scale -) 1 vial SQ ACHS [facility]; Protocol Last Admin: 04/25/18 11:47 Dose: 4 units Oseltamivir Phosphate (Tamiflu -) 75 mg PO BID [facility] Stop: 04/27/18 21:59 Last Admin: 04/25/18 09:01 Dose: 75 mg Pantoprazole Sodium (Protonix -) 40 mg PO DAILY [facility] Last Admin: 04/25/18 09:01 Dose: 40 mg Primidone (Mysoline -) 250 mg PO BID [facility] Last Admin: 04/25/18 09:02 Dose: 250 mg Senna (Senna -) 2 tab PO DAILY [facility] Last Admin: 04/25/18 09:02 Dose: Not Given Silver Sulfadiazine (Silvadene -) 1 applic TP DAILY [facility] Last Admin: 04/25/18 09:02 Dose: 1 applic - Objective Vital Signs: Vital Signs Temperature 98 F 04/25/18 08:25 Pulse Rate 77 04/25/18 08:25 Respiratory Rate 19 04/25/18 08:27 Blood Pressure 117/54 L 04/25/18 08:25 O2 Sat by Pulse Oximetry (%) 99 04/25/18 08:27 Constitutional: Yes: No Distress Eyes: Yes: Conjunctiva Clear Cardiovascular: Yes: Regular Rate and Rhythm, S1, S2 Respiratory: Yes: Rhonchi Gastrointestinal: Yes: Normal Bowel Sounds, Soft. No: Tenderness Extremities: Yes: Other (HEALED SURGICAL SCAR L LE) Edema: No Labs: CBC, BMP 04/25/18 05:30 04/25/18 05:30 INR, PTT INR 1.26 (0.83-1.09) H 04/22/18 12:00 Assessment/Plan ACUTE INFLUENZA A ? PNEUMONIA (HCAP) SEPSIS/ SEPTIC SHOCK ELEVATED LFTS IMPROVED CONTINUE EMPIRIC ZOSYN/ VANCOMYCIN PRESSORS CONTINUE TAMIFLU ISOLATION
--- NOTE | 2018-04-25 14:56 | PN ---
Progress Note, Physician History of Present Illness: Pt in ICU, still off Levophed. Pt on IVF ( secondary to dip in BP today). Pt is feeling better; no chills, fever, cough, CP, palpitations, nausea, vomiting, abd pain. Pt is tolerating PO well. - Current Medication List Current Medications: Active Medications Acetaminophen (Tylenol -) 650 mg PO Q8H PRN PRN Reason: FEVER Last Admin: 04/24/18 21:19 Dose: 650 mg Albuterol Sulfate (Ventolin 0.083% Nebulizer Soln -) 1 amp NEB Q4H PRN PRN Reason: SHORT OF BREATH/WHEEZING Albuterol/Ipratropium (Duoneb -) 1 amp NEB RQID [facility] Last Admin: 04/25/18 11:16 Dose: Not Given Aspirin (Asa -) 81 mg PO DAILY [facility] Last Admin: 04/25/18 09:00 Dose: 81 mg Clopidogrel Bisulfate (Plavix -) 75 mg PO DAILY [facility] Last Admin: 04/25/18 09:01 Dose: 75 mg Dextrose (D50w (Vial) -) 25 gm IVPUSH PRN PRN PRN Reason: Hypoglycemia BGM<70 Norepinephrine Bitartrate 4, (000 mcg/ Dextrose) 500 mls @ 22.5 mls/hr IV TITR [facility]; Protocol Last Admin: 04/25/18 05:31 Dose: Not Given Vancomycin HCl 750 mg/ (Dextrose) 250 mls @ 250 mls/hr IVPB Q12H [facility]; Protocol Last Admin: 04/25/18 09:03 Dose: 250 mls/hr Piperacillin Sod/Tazobactam (Sod 3.375 gm/ Dextrose) 50 mls @ 100 mls/hr IVPB Q8H-IV [facility]; Protocol Last Admin: 04/25/18 09:03 Dose: 100 mls/hr Sodium Chloride (Normal Saline -) 1,000 mls @ 100 mls/hr IV ASDIR [facility] Last Admin: 04/24/18 17:35 Dose: 100 mls/hr Insulin Aspart (Novolog Vial Sliding Scale -) 1 vial SQ ACHS [facility]; Protocol Last Admin: 04/25/18 11:47 Dose: 4 units Oseltamivir Phosphate (Tamiflu -) 75 mg PO BID [facility] Stop: 04/27/18 21:59 Last Admin: 04/25/18 09:01 Dose: 75 mg Pantoprazole Sodium (Protonix -) 40 mg PO DAILY [facility] Last Admin: 04/25/18 09:01 Dose: 40 mg Primidone (Mysoline -) 250 mg PO BID [facility] Last Admin: 04/25/18 09:02 Dose: 250 mg Senna (Senna -) 2 tab PO DAILY [facility] Last Admin: 04/25/18 09:02 Dose: Not Given Silver Sulfadiazine (Silvadene -) 1 applic TP DAILY [facility] Last Admin: 04/25/18 09:02 Dose: 1 applic - Objective Vital Signs: Vital Signs Temperature 98.6 F 04/25/18 12:52 Pulse Rate 77 04/25/18 08:25 Respiratory Rate 19 04/25/18 08:27 Blood Pressure 117/54 L 04/25/18 08:25 O2 Sat by Pulse Oximetry (%) 99 04/25/18 08:27 Constitutional: Yes: No Distress, Calm Cardiovascular: Yes: Regular Rate and Rhythm, S1, S2 Respiratory: Yes: Regular, Rales (at bases) Gastrointestinal: Yes: Normal Bowel Sounds, Soft. No: Tenderness Edema: No Neurological: Yes: Alert, Oriented Labs: CBC, BMP 04/25/18 05:30 04/25/18 05:30 INR, PTT INR 1.26 (0.83-1.09) H 04/22/18 12:00 Problem List - Problems (1) Septic shock Code(s): A41.9 - SEPSIS, UNSPECIFIED ORGANISM; R65.21 - SEVERE SEPSIS WITH SEPTIC SHOCK (2) PNA (pneumonia) Code(s): J18.9 - PNEUMONIA, UNSPECIFIED ORGANISM (3) Influenza A Code(s): J10.1 - FLU DUE TO OTH IDENT INFLUENZA VIRUS W OTH RESP MANIFEST (4) Elevated LFTs Code(s): R94.5 - ABNORMAL RESULTS OF LIVER FUNCTION STUDIES (5) CAD (coronary artery disease) Code(s): I25.10 - ATHSCL HEART DISEASE OF 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 (8) Impaired gait Code(s): R26.9 - UNSPECIFIED ABNORMALITIES OF GAIT AND MOBILITY (9) Weakness Code(s): R53.1 - WEAKNESS (10) Humeral head fracture Code(s): S42.293A - OTH DISP FX OF UPPER END OF UNSP HUMERUS, INIT FOR CLOS FX (11) Knee fracture, left Code(s): [id number] - (12) Wound infection complicating hardware Code(s): T84.7XXA - INFECT/INFLM REACT DUE TO OTH INT ORTH PROSTH DEV/GRFT, INIT Qualifiers: Encounter type: initial encounter Qualified Code(s): T84.7XXA - Infection and inflammatory reaction due to other internal orthopedic prosthetic devices, implants and grafts, initial encounter (13) Essential tremor Code(s): G25.0 - ESSENTIAL TREMOR (14) Asthma Code(s): J45.909 - UNSPECIFIED ASTHMA, UNCOMPLICATED (15) COPD (chronic obstructive pulmonary disease) Code(s): J44.9 - CHRONIC OBSTRUCTIVE PULMONARY DISEASE, UNSPECIFIED (16) Anemia Code(s): D64.9 - ANEMIA, UNSPECIFIED (17) Malnutrition Code(s): E46 - UNSPECIFIED PROTEIN-CALORIE MALNUTRITION (18) Hyponatremia Code(s): E87.1 - HYPO-OSMOLALITY AND HYPONATREMIA Assessment/Plan Pt presented with hypotension, failed fluid resuscitation, Central line was placed in ER and pt to be started on Levophed and admitted to ICU. Pt's BP improved; pt came off Levophed CCM, ID, Cardio,GI consults are appreciated. IV abtx IVF Tamiflu LFT's are improving (probable in the setting of sepsis). Add Levemirin ACBK;to monitor BGM (pt with HX/o hypoglicemia, now recovering from sepsis) AM labs; to monitor Na, H/H (is trending down). Case was d/w pt's ER nurse. Prognosis: reserved. Time spent for managing pt's care: over 45 minutes
--- NOTE | 2018-04-25 16:24 | PN ---
Progress Note (short form) - Note Progress Note: PULM/CCM Pt Seen & examined in the ICU, CA+OX3, breathing easy, off all pressors, ready for Xfer. Active Medications Acetaminophen (Tylenol -) 650 mg PO Q8H PRN PRN Reason: FEVER Last Admin: 04/24/18 21:19 Dose: 650 mg Albuterol Sulfate (Ventolin 0.083% Nebulizer Soln -) 1 amp NEB Q4H PRN PRN Reason: SHORT OF BREATH/WHEEZING Albuterol/Ipratropium (Duoneb -) 1 amp NEB RQID [facility] Last Admin: 04/25/18 15:41 Dose: 1 amp Aspirin (Asa -) 81 mg PO DAILY [facility] Last Admin: 04/25/18 09:00 Dose: 81 mg Clopidogrel Bisulfate (Plavix -) 75 mg PO DAILY [facility] Last Admin: 04/25/18 09:01 Dose: 75 mg Dextrose (D50w (Vial) -) 25 gm IVPUSH PRN PRN PRN Reason: Hypoglycemia BGM<70 Norepinephrine Bitartrate 4, (000 mcg/ Dextrose) 500 mls @ 22.5 mls/hr IV TITR [facility]; Protocol Last Admin: 04/25/18 05:31 Dose: Not Given Vancomycin HCl 750 mg/ (Dextrose) 250 mls @ 250 mls/hr IVPB Q12H [facility]; Protocol Last Admin: 04/25/18 09:03 Dose: 250 mls/hr Piperacillin Sod/Tazobactam (Sod 3.375 gm/ Dextrose) 50 mls @ 100 mls/hr IVPB Q8H-IV [facility]; Protocol Last Admin: 04/25/18 09:03 Dose: 100 mls/hr Sodium Chloride (Normal Saline -) 1,000 mls @ 100 mls/hr IV ASDIR [facility] Last Admin: 04/24/18 17:35 Dose: 100 mls/hr Insulin Aspart (Novolog Vial Sliding Scale -) 1 vial SQ ACHS [facility]; Protocol Last Admin: 04/25/18 11:47 Dose: 4 units Oseltamivir Phosphate (Tamiflu -) 75 mg PO BID [facility] Stop: 04/27/18 21:59 Last Admin: 04/25/18 09:01 Dose: 75 mg Pantoprazole Sodium (Protonix -) 40 mg PO DAILY [facility] Last Admin: 04/25/18 09:01 Dose: 40 mg Primidone (Mysoline -) 250 mg PO BID [facility] Last Admin: 04/25/18 09:02 Dose: 250 mg Senna (Senna -) 2 tab PO DAILY [facility] Last Admin: 04/25/18 09:02 Dose: Not Given Silver Sulfadiazine (Silvadene -) 1 applic TP DAILY [facility] Last Admin: 04/25/18 09:02 Dose: 1 applic Vital Signs Period Temp Pulse Resp BP Sys/Chen Pulse Ox Last 24 Hr 98 F-101 F 73-90 19- 104-140/38-97 99-100 Intake & Output 04/22/18 04/23/18 04/24/18 04/25/18 23:59 23:59 23:59 23:59 Intake Total 2400 4876 3925 3290 Output Total 200 1500 3200 1500 Balance 2200 3376 725 1790 Weight 44.271 kg 43.998 kg GEN: Middle aged woman in bed, CA+OX3, sig essential tremor, conversant, friendly HEENT: PERRL, an-cteric, Dry MMM PULM: CTAB CV: nml S1 S2, RR, unable to jameel any G/M/R ABD: + BS, S/S N/T, N/D X4Q EXT: + Pulses, WWPX4, (-) edema SKIN: stage 1 pressure with 4lin5dw ulcer on left upper buttocks and small ulcer at base of right shoulder and left knee with scab NEURO: Resting diffuse tremors in b/l UE and head CBC, BMP 04/25/18 05:30 04/25/18 05:30 STUDIES: NO NEED FOR CXR ASSESS: S/p Septic Shock due to Influenza / LLL PNA / R.O decubitus ulcers COPD Essential tremor Transminitis DM PLAN: O2 as needed Nebs Tamiflu ABX per ID IVFs Follow cultures D/c CVC Trend LFTs PO as tolerated FSs Cover prn Plavix / ASA BD TX PRN Multi-podus boots PT/OT D/c --> Home DGL, ACNP-BC [facility] ICU PULM/CCM 4417
[2018-04-25] MEDS: SODIUM CHLORIDE 1,000 ML IV SCH (17:20)
[2018-04-25] MEDS ORDERED: IBUPROFEN 600 MG TABLET (FP) PO PRN (19:10)
[2018-04-26] MEDS ORDERED: DEXTROSE 5%-WATER - 50 ML IVPB ONE ×2 (02:19→09:16)
[2018-04-26] MEDS ORDERED: PIPERACILLIN/TAZOBACTAM 3.375 GM VIAL IVPB ONE ×2 (02:19→09:16)
[2018-04-26] MEDS: PIPERACILLIN/TAZOB 3.375 GM 3.375 GM in DEXTROSE 5%-WATER - 50 ML IVPB SCH ×2 (02:26→09:36)
[2018-04-26 06:07] LABS: BASO % 0.2 % (0-2.0); EOS % 2.4 % (0-4.5); HEMATOCRIT 26.5 % (32.4-45.2); MCH 35.4 pg (25.7-33.7); MCHC 34.1 g/dl (32.0-36.0); MEAN CELL VOLUME 103.9 fl (80-96); MEAN PLT VOLUME 8.3 fl (7.5-11.1); MONO % 9.7 % (3.8-10.2); NEUT % 57.7 % (42.8-82.8); PLATELET COUNT 241 K/MM3 (134-434); RBC 2.55 M/mm3 (3.60-5.2); RDW 12.8 % (11.6-15.6); WHITE BLOOD COUNT 4.5 K/mm3 (4.0-10.0)
[2018-04-26] MEDS: INSULIN SLIDING SCALE (NOVOLOG) 1 VIAL SQ SCH ×4 (06:11→21:41)
[2018-04-26] MEDS: INSULIN (LEVEMIR) 100 UNITS/ML UNITS SQ SCH (06:12)
[2018-04-26 06:39] LABS: ALBUMIN 1.8 g/dl (3.4-5.0); ALK PHOS 317 U/L (45-117); ANION GAP 7 MMOL/L (8-16); BILIRUBIN,TOTAL 0.4 mg/dL (0.2-1); BLOOD UREA NITROGEN 7 mg/dL (7-18); CALCIUM 7.5 mg/dL (8.5-10.1); CHLORIDE 108 mmol/L (98-107); CO2 23 mmol/L (21-32); CREATININE 0.4 mg/dL (0.55-1.3); GLUCOSE,RANDOM 254 mg/dL (74-106); POTASSIUM 3.9 mmol/L (3.5-5.1); SGOT/AST 39 U/L (15-37); SGPT/ALT 117 U/L (13-61); SODIUM 138 mmol/L (136-145)
[2018-04-26] MEDS: ALBUTEROL SO4 2.5/IPRATROPIUM 0.5 INH SOL 3 ML VIAL.NEB. NEB SCH ×4 (07:15→20:52)
[2018-04-26] MEDS ORDERED: PT OWN MED DRAWER 7, Y5N ONE (09:17)
--- NOTE | 2018-04-26 09:30 | PN ---
Progress Note, Physician History of Present Illness: Pt is in ICU, off Levophed. Pt is feeling better, little cough; no chills, fever, cough, CP, palpitations, nausea, vomiting, abd pain. Pt is tolerating PO well. - Current Medication List Current Medications: Active Medications Acetaminophen (Tylenol -) 650 mg PO Q8H PRN PRN Reason: FEVER Last Admin: 04/24/18 21:19 Dose: 650 mg Albuterol Sulfate (Ventolin 0.083% Nebulizer Soln -) 1 amp NEB Q4H PRN PRN Reason: SHORT OF BREATH/WHEEZING Albuterol/Ipratropium (Duoneb -) 1 amp NEB RQID [facility] Last Admin: 04/26/18 07:15 Dose: 1 amp Aspirin (Asa -) 81 mg PO DAILY [facility] Last Admin: 04/25/18 09:00 Dose: 81 mg Clopidogrel Bisulfate (Plavix -) 75 mg PO DAILY [facility] Last Admin: 04/25/18 09:01 Dose: 75 mg Dextrose (D50w (Vial) -) 25 gm IVPUSH PRN PRN PRN Reason: Hypoglycemia BGM<70 Vancomycin HCl 750 mg/ (Dextrose) 250 mls @ 250 mls/hr IVPB Q12H [facility]; Protocol Last Admin: 04/25/18 22:13 Dose: 250 mls/hr Piperacillin Sod/Tazobactam (Sod 3.375 gm/ Dextrose) 50 mls @ 100 mls/hr IVPB Q8H-IV [facility]; Protocol Last Admin: 04/26/18 02:26 Dose: 100 mls/hr Sodium Chloride (Normal Saline -) 1,000 mls @ 100 mls/hr IV ASDIR [facility] Last Admin: 04/25/18 17:20 Dose: 100 mls/hr Ibuprofen (Motrin -) 600 mg PO Q8H PRN PRN Reason: PAIN LEVEL 1 - 3 Insulin Aspart (Novolog Vial Sliding Scale -) 1 vial SQ ACHS [facility]; Protocol Last Admin: 04/26/18 06:11 Dose: 10 units Insulin Detemir (Levemir Vial) 7 units SQ ACBK [facility] Last Admin: 04/26/18 06:12 Dose: 7 units Oseltamivir Phosphate (Tamiflu -) 75 mg PO BID [facility] Stop: 04/27/18 21:59 Last Admin: 04/25/18 23:02 Dose: 75 mg Pantoprazole Sodium (Protonix -) 40 mg PO DAILY [facility] Last Admin: 04/25/18 09:01 Dose: 40 mg Primidone (Mysoline -) 250 mg PO BID [facility] Last Admin: 04/25/18 23:02 Dose: 250 mg Senna (Senna -) 2 tab PO DAILY [facility] Last Admin: 04/25/18 09:02 Dose: Not Given Silver Sulfadiazine (Silvadene -) 1 applic TP DAILY [facility] Last Admin: 04/25/18 09:02 Dose: 1 applic - Objective Vital Signs: Vital Signs Temperature 98.8 F 04/26/18 04:00 Pulse Rate 83 04/26/18 09:28 Respiratory Rate 22 H 04/26/18 09:28 Blood Pressure 116/54 L 04/26/18 09:28 O2 Sat by Pulse Oximetry (%) 96 04/25/18 21:00 Constitutional: Yes: No Distress, Calm Cardiovascular: Yes: Regular Rate and Rhythm, S1, S2 Respiratory: Yes: Regular, Rhonchi Gastrointestinal: Yes: Normal Bowel Sounds, Soft. No: Tenderness Edema: No Neurological: Yes: Alert, Oriented, Other (symmetric motor and sensory examination) Labs: CBC, BMP 04/26/18 05:30 04/26/18 05:30 INR, PTT INR 1.26 (0.83-1.09) H 04/22/18 12:00 Problem List - Problems (1) Septic shock Code(s): A41.9 - SEPSIS, UNSPECIFIED ORGANISM; R65.21 - SEVERE SEPSIS WITH SEPTIC SHOCK (2) PNA (pneumonia) Code(s): J18.9 - PNEUMONIA, UNSPECIFIED ORGANISM (3) Influenza A Code(s): J10.1 - FLU DUE TO OTH IDENT INFLUENZA VIRUS W OTH RESP MANIFEST (4) Elevated LFTs Code(s): R94.5 - ABNORMAL RESULTS OF LIVER FUNCTION STUDIES (5) CAD (coronary artery disease) Code(s): I25.10 - ATHSCL HEART DISEASE OF [place] CORONARY ARTERY W/O ANG PCTRS (6) Hx of CABG Code(s): Z95.1 - PRESENCE OF AORTOCORONARY BYPASS GRAFT (7) IDDM (insulin dependent diabetes mellitus) Code(s): E11.9 - TYPE 2 DIABETES MELLITUS WITHOUT COMPLICATIONS; 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 (8) Impaired gait Code(s): R26.9 - UNSPECIFIED ABNORMALITIES OF GAIT AND MOBILITY (9) Weakness Code(s): R53.1 - WEAKNESS (10) Humeral head fracture Code(s): S42.293A - OTH DISP FX OF UPPER END OF UNSP HUMERUS, INIT FOR CLOS FX (11) Knee fracture, left Code(s): [id number] - (12) Wound infection complicating hardware Code(s): T84.7XXA - INFECT/INFLM REACT DUE TO OTH INT ORTH PROSTH DEV/GRFT, INIT Qualifiers: Encounter type: initial encounter Qualified Code(s): T84.7XXA - Infection and inflammatory reaction due to other internal orthopedic prosthetic devices, implants and grafts, initial encounter (13) Essential tremor Code(s): G25.0 - ESSENTIAL TREMOR (14) Asthma Code(s): J45.909 - UNSPECIFIED ASTHMA, UNCOMPLICATED (15) COPD (chronic obstructive pulmonary disease) Code(s): J44.9 - CHRONIC OBSTRUCTIVE PULMONARY DISEASE, UNSPECIFIED (16) Anemia Code(s): D64.9 - ANEMIA, UNSPECIFIED (17) Malnutrition Code(s): E46 - UNSPECIFIED PROTEIN-CALORIE MALNUTRITION (18) Hyponatremia Code(s): E87.1 - HYPO-OSMOLALITY AND HYPONATREMIA Assessment/Plan Pt presented with hypotension, failed fluid resuscitation, Central line was placed in ER and pt to be started on Levophed and admitted to ICU. Pt's BP improved; pt came off Levophed CCM, ID, Cardio, GI consults are appreciated. IV abtx Tamiflu LFT's are improving (probable in the setting of sepsis). Levemirin ACBK; to monitor BGM (pt with HX/o hypoglicemia, now recovering from sepsis). Na improved AM labs; Case was d/w pt's ER nurse. Prognosis: reserved. Time spent for managing pt's care: over 40 minutes
[2018-04-26] MEDS: OSELTAMIVIR PHOSPHATE 75 MG CAPSULE PO SCH ×2 (09:35→21:42)
[2018-04-26] MEDS: ASPIRIN 81 MG CHEWABLE TABLETS PO SCH (09:35)
[2018-04-26] MEDS: PRIMIDONE 250 MG TABLET PO SCH ×2 (09:35→21:42)
[2018-04-26] MEDS: SENNOSIDES 8.6MG TABLET (FP) PO SCH (09:35)
[2018-04-26] MEDS: VANCOMYCIN 750 MG in DEXTROSE 5%-WATER - 250 ML IVPB SCH (09:36)
[2018-04-26] MEDS: PANTOPRAZOLE 40 MG TABLET (FP) PO SCH (09:36)
[2018-04-26] MEDS: SILVER SULFADIAZINE 1% TOP CREAM 50 GM JAR TP SCH (11:48)
--- NOTE | 2018-04-26 12:24 | PN ---
GI Progress Note Subjective: GI NOte: Off pressors. NO GI complaints. LFTs slowly improving. NO signs of cholangitis - Objective Vital Signs: Vital Signs Temperature 99.3 F 04/26/18 10:00 Pulse Rate 84 04/26/18 11:58 Respiratory Rate 22 H 04/26/18 11:58 Blood Pressure 117/74 04/26/18 11:58 O2 Sat by Pulse Oximetry (%) 96 04/25/18 21:00 Laboratory Tests 04/22/18 04/23/18 04/24/18 12:00 05:30 05:05 Total Bilirubin AST 464 H 207 H 115 H ALT 480 H 283 H 197 H Alkaline Phosphatase 372 H 265 H 309 H 04/25/18 04/26/18 05:30 05:30 Total Bilirubin 0.4 AST 56 H 39 H ALT 132 H 117 H Alkaline Phosphatase 302 H 317 H Constitutional: No Distress ...Auscultate: Yes: Normoactive Bowel Sounds ...Palpate: Yes: Soft, Other (nontender) Neurological: Yes: Tremors Labs: CBC, BMP 04/26/18 05:30 04/26/18 05:30 INR, PTT INR 1.26 (0.83-1.09) H 04/22/18 12:00 Assessment/Plan Impression: Reactive hepatopathy rather than shock liver or cholangitis Peripancreatic collection could be a mucinous pancreatic cyst or IPMN and needs further evaluation Plan: MRCP when more stable and noninfectious using pancreas protocol MRI EUS as outpatient Ultimately will need tubular adenoma surveillance Problem List - Problems (1) Elevated LFTs Code(s): R94.5 - ABNORMAL RESULTS OF LIVER FUNCTION STUDIES (2) Cystic mass of pancreas Code(s): K86.2 - CYST OF PANCREAS (3) Tubular adenoma of colon Code(s): D12.6 - BENIGN NEOPLASM OF COLON, UNSPECIFIED (4) History of cancer of vagina Code(s): Z85.44 - PERSONAL HISTORY OF MALIG NEOPLASM OF FEMALE GENITAL ORGANS (5) Septic shock Code(s): A41.9 - SEPSIS, UNSPECIFIED ORGANISM; R65.21 - SEVERE SEPSIS WITH SEPTIC SHOCK (6) Diabetes mellitus Code(s): E11.9 - TYPE 2 DIABETES MELLITUS WITHOUT COMPLICATIONS (7) Essential tremor Code(s): G25.0 - ESSENTIAL TREMOR (8) Facial contusion Code(s): S00.83XA - CONTUSION OF OTHER PART OF HEAD, INITIAL ENCOUNTER Qualifiers: Qualified Code(s): S00.83XA - Contusion of other part of head, initial encounter (9) IDDM (insulin dependent diabetes mellitus) Code(s): E11.9 - TYPE 2 DIABETES MELLITUS WITHOUT COMPLICATIONS; Z79.4 - ASSISTED (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 OF INSULIN (10) CAD (coronary artery disease) Code(s): I25.10 - ATHSCL HEART DISEASE OF [place] CORONARY ARTERY W/O ANG PCTRS (11) Influenza A Code(s): J10.1 - FLU DUE TO OTH IDENT INFLUENZA VIRUS W OTH RESP MANIFEST
--- NOTE | 2018-04-26 12:24 | PN ---
Progress Note, Physician History of Present Illness: AWAKE, ALERT TEMPS DOWN AFEBRILE NO COMPLAINTS + TREMOR DENIES CHEST PAIN/ DYSPNEA/ COUGH WBC WNL BC (-) LEGIONELLA/ PNEUMOCOCCAL AG (-) SPUTUM GRP F STREP, YLO LFTS IMPROVED - Current Medication List Current Medications: Active Medications Acetaminophen (Tylenol -) 650 mg PO Q8H PRN PRN Reason: FEVER Last Admin: 04/24/18 21:19 Dose: 650 mg Albuterol Sulfate (Ventolin 0.083% Nebulizer Soln -) 1 amp NEB Q4H PRN PRN Reason: SHORT OF BREATH/WHEEZING Albuterol/Ipratropium (Duoneb -) 1 amp NEB RQID [facility] Last Admin: 04/26/18 11:38 Dose: 1 amp Aspirin (Asa -) 81 mg PO DAILY [facility] Last Admin: 04/26/18 09:35 Dose: 81 mg Clopidogrel Bisulfate (Plavix -) 75 mg PO DAILY [facility] Last Admin: 04/25/18 09:01 Dose: 75 mg Dextrose (D50w (Vial) -) 25 gm IVPUSH PRN PRN PRN Reason: Hypoglycemia BGM<70 Vancomycin HCl 750 mg/ (Dextrose) 250 mls @ 250 mls/hr IVPB Q12H [facility]; Protocol Last Admin: 04/26/18 09:36 Dose: 250 mls/hr Piperacillin Sod/Tazobactam (Sod 3.375 gm/ Dextrose) 50 mls @ 100 mls/hr IVPB Q8H-IV [facility]; Protocol Last Admin: 04/26/18 09:36 Dose: 100 mls/hr Sodium Chloride (Normal Saline -) 1,000 mls @ 100 mls/hr IV ASDIR [facility] Last Admin: 04/25/18 17:20 Dose: 100 mls/hr Ibuprofen (Motrin -) 600 mg PO Q8H PRN PRN Reason: PAIN LEVEL 1 - 3 Insulin Aspart (Novolog Vial Sliding Scale -) 1 vial SQ ACHS [facility]; Protocol Last Admin: 04/26/18 06:11 Dose: 10 units Insulin Detemir (Levemir Vial) 7 units SQ ACBK [facility] Last Admin: 04/26/18 06:12 Dose: 7 units Oseltamivir Phosphate (Tamiflu -) 75 mg PO BID [facility] Stop: 04/27/18 21:59 Last Admin: 04/26/18 09:35 Dose: 75 mg Pantoprazole Sodium (Protonix -) 40 mg PO DAILY [facility] Last Admin: 04/26/18 09:36 Dose: 40 mg Primidone (Mysoline -) 250 mg PO BID [facility] Last Admin: 04/26/18 09:35 Dose: 250 mg Senna (Senna -) 2 tab PO DAILY [facility] Last Admin: 04/26/18 09:35 Dose: 2 tab Silver Sulfadiazine (Silvadene -) 1 applic TP DAILY [facility] Last Admin: 04/25/18 09:02 Dose: 1 applic - Objective Vital Signs: Vital Signs Temperature 99.3 F 04/26/18 10:00 Pulse Rate 84 04/26/18 11:58 Respiratory Rate 22 H 04/26/18 11:58 Blood Pressure 117/74 04/26/18 11:58 O2 Sat by Pulse Oximetry (%) 96 04/25/18 21:00 Constitutional: Yes: No Distress Eyes: Yes: Conjunctiva Clear Cardiovascular: Yes: Regular Rate and Rhythm, S1, S2 Respiratory: Yes: Rhonchi Gastrointestinal: Yes: Normal Bowel Sounds, Soft. No: Tenderness Edema: No Labs: CBC, BMP 04/26/18 05:30 04/26/18 05:30 INR, PTT INR 1.26 (0.83-1.09) H 04/22/18 12:00 Assessment/Plan ACUTE INFLUENZA A ? PNEUMONIA (HCAP) SEPSIS/ SEPTIC SHOCK ELEVATED LFTS IMPROVED OFF PRESSORS CONTINUE TAMIFLU COMPLETE 5D COURSE SUBSTITUTE CEFTRIAXONE MAINTAIN ISOLATION X 48HR
--- NOTE | 2018-04-26 12:31 | PN ---
Teaching Attending Note Name of Resident: Talib Mo ATTENDING PHYSICIAN STATEMENT I saw and evaluated the patient. I reviewed the resident's note and discussed the case with the resident. I agree with the resident's findings and plan as documented. SUBJECTIVE: Patient seen and examined in the ICU. Awake and responsive. Remains off NE for hemodynamic support. Denies CP or SOB. Intake & Output 04/23/18 04/24/18 04/25/18 04/26/18 23:59 23:59 23:59 23:59 Intake Total 4876 3925 3290 1300 Output Total 1500 3200 1500 1100 Balance 3376 725 1790 200 Weight 97 lb Last Vital Signs Temp Pulse Resp BP Pulse Ox 99.3 F 84 22 H 117/74 96 04/26/18 10:00 04/26/18 11:58 04/26/18 11:58 04/26/18 11:58 04/25/18 21:00 Active Medications Acetaminophen (Tylenol -) 650 mg PO Q8H PRN PRN Reason: FEVER Last Admin: 04/24/18 21:19 Dose: 650 mg Albuterol Sulfate (Ventolin 0.083% Nebulizer Soln -) 1 amp NEB Q4H PRN PRN Reason: SHORT OF BREATH/WHEEZING Albuterol/Ipratropium (Duoneb -) 1 amp NEB RQID [facility] Last Admin: 04/26/18 11:38 Dose: 1 amp Aspirin (Asa -) 81 mg PO DAILY [facility] Last Admin: 04/26/18 09:35 Dose: 81 mg Clopidogrel Bisulfate (Plavix -) 75 mg PO DAILY [facility] Last Admin: 04/25/18 09:01 Dose: 75 mg Dextrose (D50w (Vial) -) 25 gm IVPUSH PRN PRN PRN Reason: Hypoglycemia BGM<70 Sodium Chloride (Normal Saline -) 1,000 mls @ 100 mls/hr IV ASDIR [facility] Last Admin: 04/25/18 17:20 Dose: 100 mls/hr Ceftriaxone Sodium 2 gm/ (Dextrose) 100 mls @ 200 mls/hr IVPB DAILY [facility]; Protocol Ibuprofen (Motrin -) 600 mg PO Q8H PRN PRN Reason: PAIN LEVEL 1 - 3 Insulin Aspart (Novolog Vial Sliding Scale -) 1 vial SQ ACHS [facility]; Protocol Last Admin: 04/26/18 06:11 Dose: 10 units Insulin Detemir (Levemir Vial) 7 units SQ ACBK [facility] Last Admin: 04/26/18 06:12 Dose: 7 units Oseltamivir Phosphate (Tamiflu -) 75 mg PO BID [facility] Stop: 04/27/18 21:59 Last Admin: 04/26/18 09:35 Dose: 75 mg Pantoprazole Sodium (Protonix -) 40 mg PO DAILY [facility] Last Admin: 04/26/18 09:36 Dose: 40 mg Primidone (Mysoline -) 250 mg PO BID [facility] Last Admin: 04/26/18 09:35 Dose: 250 mg Senna (Senna -) 2 tab PO DAILY [facility] Last Admin: 04/26/18 09:35 Dose: 2 tab Silver Sulfadiazine (Silvadene -) 1 applic TP DAILY [facility] Last Admin: 04/25/18 09:02 Dose: 1 applic Constitutional: Yes: NAD, awake and alert Eyes: Yes: Conjunctiva Clear, EOM Intact, PERRL HENT: Yes: healing laceration Neck: Yes: Supple, Trachea Midline. No: Lymphadenopathy, Rigid, Tenderness, Thyromegaly Cardiovascular: Yes: Regular Rate and Rhythm, S1, S2. 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), LLE (3/5 hip extension), RUE (2/5 hand telegraph repeater technician, unable to fully extend shoulder), RLE (3/5 hip extension) Labs: Laboratory Results - last 24 hr 04/25/18 04/25/18 04/25/18 17:16 21:15 21:59 WBC RBC Hgb Hct MCV MCH MCHC RDW Plt Count MPV Absolute Neuts (auto) Neutrophils % Lymphocytes % Monocytes % Eosinophils % Basophils % Nucleated RBC % Sodium Potassium Chloride Carbon Dioxide Anion Gap BUN Creatinine Creat Clearance w eGFR POC Glucometer 232 296 Random Glucose Calcium Total Bilirubin AST ALT Alkaline Phosphatase Total Protein Albumin Vancomycin Pre-Dose 9.8 L 04/26/18 04/26/18 04/26/18 05:30 05:30 05:56 WBC 4.5 RBC 2.55 L Hgb 9.0 L Hct 26.5 L MCV 103.9 H MCH 35.4 H MCHC 34.1 RDW 12.8 Plt Count 241 D MPV 8.3 Absolute Neuts (auto) 2.6 Neutrophils % 57.7 D Lymphocytes % 30.0 D Monocytes % 9.7 Eosinophils % 2.4 D Basophils % 0.2 Nucleated RBC % 0 Sodium 138 Potassium 3.9 Chloride 108 H Carbon Dioxide 23 Anion Gap 7 L BUN 7 Creatinine 0.4 L Creat Clearance w eGFR > 60 POC Glucometer 239 Random Glucose 254 H Calcium 7.5 L Total Bilirubin 0.4 AST 39 H ALT 117 H Alkaline Phosphatase 317 H Total Protein 5.0 L Albumin 1.8 L Vancomycin Pre-Dose 04/26/18 11:59 WBC RBC Hgb Hct MCV MCH MCHC RDW Plt Count MPV Absolute Neuts (auto) Neutrophils % Lymphocytes % Monocytes % Eosinophils % Basophils % Nucleated RBC % Sodium Potassium Chloride Carbon Dioxide Anion Gap BUN Creatinine Creat Clearance w eGFR POC Glucometer 163 Random Glucose Calcium Total Bilirubin AST ALT Alkaline Phosphatase Total Protein Albumin Vancomycin Pre-Dose Assessment/Plan Resolved Septic Shock due to Influenza / LLL PNA / R.O decubitus ulcers COPD Essential tremor Transminitis DM ABX per ID IVF Tamiflu to complete 5 days PO as tolerated O2 as needed Plavix / ASA BD [place] PRN Floor Dr Pena
--- NOTE | 2018-04-26 13:35 | PN ---
Progress Note, Physician History of Present Illness: The patient is a 58 year old white woman with a significant past medical history of IDDM, left tib/fib fracture s/p ORIF 2015, prior admission for DKA - sent to surgeon at [facility] where bone scan displayed left knee septic arthritis, resulting in removal of hardware; CAD-->coronary stents in ?2004, COPD, anxiety, tremors, who presents to the emergency department today complaining of a fall one day ago. The patient states she slipped in the bathtub a day ago and was there until her foreclosure home inspector came and found her there. She denies LOC. She reports pain to her left shoulder and that she hit her right side of her head, where there is now dry blood. The patient also explains that she has had a productive cough well before the fall. - Current Medication List Current Medications: Active Medications Acetaminophen (Tylenol -) 650 mg PO Q8H PRN PRN Reason: FEVER Last Admin: 04/24/18 21:19 Dose: 650 mg Albuterol Sulfate (Ventolin 0.083% Nebulizer Soln -) 1 amp NEB Q4H PRN PRN Reason: SHORT OF BREATH/WHEEZING Albuterol/Ipratropium (Duoneb -) 1 amp NEB RQID [facility] Last Admin: 04/26/18 11:38 Dose: 1 amp Aspirin (Asa -) 81 mg PO DAILY [facility] Last Admin: 04/26/18 09:35 Dose: 81 mg Clopidogrel Bisulfate (Plavix -) 75 mg PO DAILY [facility] Last Admin: 04/25/18 09:01 Dose: 75 mg Dextrose (D50w (Vial) -) 25 gm IVPUSH PRN PRN PRN Reason: Hypoglycemia BGM<70 Sodium Chloride (Normal Saline -) 1,000 mls @ 100 mls/hr IV ASDIR [facility] Last Admin: 04/25/18 17:20 Dose: 100 mls/hr Ceftriaxone Sodium 2 gm/ (Dextrose) 100 mls @ 200 mls/hr IVPB DAILY [facility]; Protocol Ibuprofen (Motrin -) 600 mg PO Q8H PRN PRN Reason: PAIN LEVEL 1 - 3 Insulin Aspart (Novolog Vial Sliding Scale -) 1 vial SQ ACHS [facility]; Protocol Last Admin: 04/26/18 06:11 Dose: 10 units Insulin Detemir (Levemir Vial) 7 units SQ ACBK [facility] Last Admin: 04/26/18 06:12 Dose: 7 units Oseltamivir Phosphate (Tamiflu -) 75 mg PO BID [facility] Stop: 04/27/18 21:59 Last Admin: 04/26/18 09:35 Dose: 75 mg Pantoprazole Sodium (Protonix -) 40 mg PO DAILY [facility] Last Admin: 04/26/18 09:36 Dose: 40 mg Primidone (Mysoline -) 250 mg PO BID [facility] Last Admin: 04/26/18 09:35 Dose: 250 mg Senna (Senna -) 2 tab PO DAILY [facility] Last Admin: 04/26/18 09:35 Dose: 2 tab Silver Sulfadiazine (Silvadene -) 1 applic TP DAILY [facility] Last Admin: 04/25/18 09:02 Dose: 1 applic - Objective Vital Signs: Vital Signs Temperature 99.3 F 04/26/18 10:00 Pulse Rate 84 04/26/18 11:58 Respiratory Rate 22 H 04/26/18 11:58 Blood Pressure 117/74 04/26/18 11:58 O2 Sat by Pulse Oximetry (%) 96 04/25/18 21:00 Eyes: Yes: WNL, Conjunctiva Clear, EOM Intact HENT: Yes: WNL, Atraumatic, Normocephalic Neck: Yes: WNL, Supple, Trachea Midline Cardiovascular: Yes: WNL, Regular Rate and Rhythm Respiratory: Yes: WNL, Regular, CTA Bilaterally Gastrointestinal: Yes: WNL, Normal Bowel Sounds Genitourinary: Yes: WNL Musculoskeletal: Yes: WNL Extremities: Yes: WNL Edema: No Integumentary: Yes: WNL Neurological: Yes: WNL, Alert, Oriented ...Motor Strength: WNL Psychiatric: Yes: WNL Labs: CBC, BMP 04/26/18 05:30 04/26/18 05:30 INR, PTT INR 1.26 (0.83-1.09) H 04/22/18 12:00 Assessment/Plan - Problems (1) S/P coronary artery stent placement Code(s): Z95.5 - PRESENCE OF CORONARY ANGIOPLASTY IMPLANT AND GRAFT (2) Fall Code(s): W19.XXXA - UNSPECIFIED FALL, INITIAL ENCOUNTER (3) Hypokalemia Assessment/Plan: Replete K, and keep 4.0-4.5. F/u Mg and PO4. 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 On IVF; f/u BUN/Cr, Is and Os, daily weight. Antibiotics per ID. Code(s): A41.9 - SEPSIS, UNSPECIFIED ORGANISM; R65.21 - SEVERE SEPSIS WITH SEPTIC SHOCK (7) Dehydration Assessment/Plan: No JVD; no acute pathology on CXR; elevated BUN; hypotensive. IV fluids. F/u Is and Os Code(s): E86.0 - DEHYDRATION (8) Elevated LFTs Assessment/Plan: GI f/u appreciated - MRCP when stable Code(s): R94.5 - ABNORMAL RESULTS OF LIVER FUNCTION STUDIES Assessment/Plan cc time spent: 35 minutes.
--- NOTE | 2018-04-26 14:30 | PN ---
Physical Exam: SUBJECTIVE: Patient seen and examined this AM in ICU. Feels her breathing and cough have improved. No new complaints. No acute overnight events. OBJECTIVE: Vital Signs Period Temp Pulse Resp BP Sys/Chen Pulse Ox Last 24 Hr 98.8 F-99.3 F 73-97 15-23 101-138/25-78 96 GENERAL: A&Ox3, NAD HEAD: Right Temporal healing laceration with surrounding ecchymosis, No active bleeding or drainage, No Tenderness to palpation EYES: PERRL, EOMI ENT: Moist mucous membranes. NECK: Supple LUNGS: Diminished breath sounds at the bases, No wheezes, No crackles HEART: Regular rate and rhythm, S1, S2 without murmur ABDOMEN: Soft, nontender, nondistended, + bowel sounds, no guarding EXTREMITIES: No edema. NEUROLOGICAL: Cranial nerves II through XII grossly intact. Normal speech. Chronic Resting tremor of the upper extremities, Head PSYCH: Normal mood, normal affect. SKIN: Warm, dry. Laboratory Last Values WBC 4.5 K/mm3 (4.0-10.0) 04/26/18 05:30 RBC 2.55 M/mm3 (3.60-5.2) L 04/26/18 05:30 Hgb 9.0 GM/dL (10.7-15.3) L 04/26/18 05:30 Hct 26.5 % (32.4-45.2) L 04/26/18 05:30 MCV 103.9 fl (80-96) H 04/26/18 05:30 MCH 35.4 pg (25.7-33.7) H 04/26/18 05:30 MCHC 34.1 g/dl (32.0-36.0) 04/26/18 05:30 RDW 12.8 % (11.6-15.6) 04/26/18 05:30 Plt Count 241 K/MM3 (134-434) D 04/26/18 05:30 MPV 8.3 fl (7.5-11.1) 04/26/18 05:30 Absolute Neuts (auto) 2.6 K/mm3 (1.5-8.0) 04/26/18 05:30 Total Counted 100 04/22/18 12:00 Neutrophils % 57.7 % (42.8-82.8) D 04/26/18 05:30 Neutrophils % (Manual) 67.0 % (42.8-82.8) 04/23/18 05:30 Band Neutrophils % 13.4 % 04/23/18 05:30 Lymphocytes % 30.0 % (8-40) D 04/26/18 05:30 Lymphocytes % (Manual) 15.5 % (8-40) 04/23/18 05:30 Monocytes % 9.7 % (3.8-10.2) 04/26/18 05:30 Monocytes % (Manual) 3 % (3.8-10.2) L 04/23/18 05:30 Eosinophils % 2.4 % (0-4.5) D 04/26/18 05:30 Eosinophils % (Manual) 0.0 % (0-4.5) 04/23/18 05:30 Basophils % 0.2 % (0-2.0) 04/26/18 05:30 Basophils % (Manual) 0.0 % (0-2.0) 04/23/18 05:30 Myelocytes % (Man) 0 % (0-2) 04/23/18 05:30 Promyelocytes % (Man) 0 % (0-2) 04/23/18 05:30 Blast Cells % (Manual) 0 % (0-0) 04/23/18 05:30 Nucleated RBC % 0 % (0-0) 04/26/18 05:30 Metamyelocytes 0 % (0-2) 04/23/18 05:30 Hypochromia 0 04/24/18 05:05 Platelet Estimate Normal 04/24/18 05:05 Polychromasia 0 04/24/18 05:05 Poikilocytosis 0 04/24/18 05:05 Anisocytosis 1+ 04/24/18 05:05 Microcytosis 0 04/24/18 05:05 Macrocytosis 1+ 04/24/18 05:05 Ovalocytes 1+ 04/24/18 05:05 ESR 48 mm/hr (0-30) H 04/23/18 05:30 PT with INR 14.90 SEC (9.7-13.0) H 04/22/18 12:00 INR 1.26 (0.83-1.09) H 04/22/18 12:00 PTT (Actin FS) 31.7 SECONDS (25.2-36.5) 04/22/18 12:00 VBG pH 7.43 (7.32-7.42) H D 04/22/18 12:00 POC VBG pCO2 37.4 mmHg (38-52) L D 04/22/18 12:00 POC VBG pO2 45.6 mmHg (28-48) D 04/22/18 12:00 Mixed VBG HCO3 24.2 meq/L (19-25) 04/22/18 12:00 Sodium 138 mmol/L (136-145) 04/26/18 05:30 Potassium 3.9 mmol/L (3.5-5.1) 04/26/18 05:30 Chloride 108 mmol/L (98-107) H 04/26/18 05:30 Carbon Dioxide 23 mmol/L (21-32) 04/26/18 05:30 Anion Gap 7 MMOL/L (8-16) L 04/26/18 05:30 BUN 7 mg/dL (7-18) 04/26/18 05:30 Creatinine 0.4 mg/dL (0.55-1.3) L 04/26/18 05:30 Creat Clearance w eGFR > 60 (>60) 04/26/18 05:30 POC Glucometer 163 UNITS (80-120) 04/26/18 11:59 Random Glucose 254 mg/dL (74-106) H 04/26/18 05:30 Lactic Acid 1.0 mmol/L (0.4-2.0) 04/23/18 05:30 Calcium 7.5 mg/dL (8.5-10.1) L 04/26/18 05:30 Phosphorus 2.2 mg/dL (2.5-4.9) L 04/24/18 05:05 Magnesium 1.8 mg/dL (1.8-2.4) 04/24/18 05:05 Total Bilirubin 0.4 mg/dL (0.2-1) 04/26/18 05:30 GGT 923 U/L (5-85) H 04/23/18 05:30 AST 39 U/L (15-37) H 04/26/18 05:30 ALT 117 U/L (13-61) H 04/26/18 05:30 Alkaline Phosphatase 317 U/L (45-117) H 04/26/18 05:30 Creatine Kinase 40 U/L (26-192) 04/22/18 12:00 CK-MB (CK-2) < 1.0 ng/mL (0.5-3.6) 04/22/18 12:00 Troponin I < 0.02 ng/ml (0.00-0.05) 04/22/18 12:00 C-Reactive Protein 21.3 MG/DL (0.00-0.3) H 04/23/18 05:30 Total Protein 5.0 g/dl (6.4-8.2) L 04/26/18 05:30 Albumin 1.8 g/dl (3.4-5.0) L 04/26/18 05:30 Vitamin B12 897 pg/ml (193-986) 04/24/18 05:05 Serum Folate 39 ng/mL (3.1-17.5) H 04/24/18 05:05 TSH 3.91 uIU/ml (0.358-3.74) H 04/22/18 19:00 Urine Color Ree 04/22/18 12:23 Urine Appearance Cloudy 04/22/18 12:23 Urine pH 5.0 (5.0-8.0) 04/22/18 12:23 Ur Specific [place] 1.021 (1.010-1.035) 04/22/18 12:23 Urine Protein 1+ (NEGATIVE) H 04/22/18 12:23 Urine Glucose (UA) 3+ (NEGATIVE) H 04/22/18 12:23 Urine Ketones Negative (NEGATIVE) 04/22/18 12:23 Urine Blood Negative (NEGATIVE) 04/22/18 12:23 Urine Nitrite Negative (NEGATIVE) 04/22/18 12:23 Urine Bilirubin Negative (<2.0 mg/dL) 04/22/18 12:23 Urine Urobilinogen 2.0 mg/dL (0.2-1.0) H 04/22/18 12:23 Ur Leukocyte Esterase Negative (NEGATIVE) 04/22/18 12:23 Urine WBC (Auto) 3 /hpf (3-5) 04/22/18 12:23 Urine RBC (Auto) 3 /hpf (0-3) 04/22/18 12:23 Ur Epithelial Cells Rare /HPF (FEW) 04/22/18 12:23 Hyaline Casts 4 /lpf 04/22/18 12:23 Urine Mucus Rare 04/22/18 12:23 Vancomycin Pre-Dose 9.8 ug/ml (18-26) L 04/25/18 21:15 Acetone, Qual Negative (NEGATIVE) L 04/22/18 12:50 Influenza A (Rapid) Positive A 04/22/18 16:39 Influenza B (Rapid) Negative 04/22/18 16:39 Blood Type AB POSITIVE 04/22/18 14:30 Antibody Screen Positive H 04/22/18 14:30 Antibody Identification Cold auto 04/22/18 14:30 Antigen Identification No Result Required. 04/22/18 14:30 Microbiology 04/22/18 12:23 Blood - Peripheral Venous Blood Culture - Preliminary NO GROWTH OBTAINED AFTER 96 HOURS, INCUBATION TO CONTINUE FOR 1 DAYS. 04/22/18 12:00 Blood - Peripheral Venous Blood Culture - Preliminary NO GROWTH OBTAINED AFTER 96 HOURS, INCUBATION TO CONTINUE FOR 1 DAYS. 04/23/18 11:30 Sputum - Expectorated Gram Stain - Final 04/23/18 11:30 Sputum - Expectorated Sputum Culture - Final Beta Hem Streptococcus Group F Yeast Like Organism 04/23/18 11:30 Nares - Right Nares MRSA Screen - Final NO MRSA ISOLATED 04/23/18 11:30 Nares - Mrsa Screen - Left MRSA Screen - Final NO MRSA ISOLATED 04/22/18 12:23 Urine - Urine Clean Catch Urine Culture - Final NO GROWTH OBTAINED 04/23/18 09:45 Urine For Antigen Detection Legionella Antigen - Final 04/23/18 09:45 Urine For Antigen Detection Streptococcus pneumoniae Antigen (M - Final Active Medications Acetaminophen (Tylenol -) 650 mg PO Q8H PRN PRN Reason: FEVER Last Admin: 04/24/18 21:19 Dose: 650 mg Albuterol Sulfate (Ventolin 0.083% Nebulizer Soln -) 1 amp NEB Q4H PRN PRN Reason: SHORT OF BREATH/WHEEZING Albuterol/Ipratropium (Duoneb -) 1 amp NEB RQID [facility] Last Admin: 04/26/18 11:38 Dose: 1 amp Aspirin (Asa -) 81 mg PO DAILY [facility] Last Admin: 04/26/18 09:35 Dose: 81 mg Clopidogrel Bisulfate (Plavix -) 75 mg PO DAILY [facility] Last Admin: 04/25/18 09:01 Dose: 75 mg Dextrose (D50w (Vial) -) 25 gm IVPUSH PRN PRN PRN Reason: Hypoglycemia BGM<70 Sodium Chloride (Normal Saline -) 1,000 mls @ 100 mls/hr IV ASDIR [facility] Last Admin: 04/25/18 17:20 Dose: 100 mls/hr Ceftriaxone Sodium 2 gm/ (Dextrose) 100 mls @ 200 mls/hr IVPB DAILY [facility]; Protocol Ibuprofen (Motrin -) 600 mg PO Q8H PRN PRN Reason: PAIN LEVEL 1 - 3 Insulin Aspart (Novolog Vial Sliding Scale -) 1 vial SQ ACHS [facility]; Protocol Last Admin: 04/26/18 06:11 Dose: 10 units Insulin Detemir (Levemir Vial) 7 units SQ ACBK [facility] Last Admin: 04/26/18 06:12 Dose: 7 units Oseltamivir Phosphate (Tamiflu -) 75 mg PO BID [facility] Stop: 04/27/18 21:59 Last Admin: 04/26/18 09:35 Dose: 75 mg Pantoprazole Sodium (Protonix -) 40 mg PO DAILY [facility] Last Admin: 04/26/18 09:36 Dose: 40 mg Primidone (Mysoline -) 250 mg PO BID [facility] Last Admin: 04/26/18 09:35 Dose: 250 mg Senna (Senna -) 2 tab PO DAILY [facility] Last Admin: 04/26/18 09:35 Dose: 2 tab Silver Sulfadiazine (Silvadene -) 1 applic TP DAILY [facility] Last Admin: 04/25/18 09:02 Dose: 1 applic ASSESSMENT/PLAN: 58 y/o F with PMHx of IDDM, COPD, CAD s/p PCI, TBI w/ resultant tremor, prior admissions for DKA, found to be in septic shock likely due to Influenza and will be monitored in ICU. #Neuro Hx of TBI with resultant Tremor -A&Ox3, NAD -Continue home dose Primidone #Cardio Hx of CAD s/p PCI -Trop < 0.02 -EKG: NSR, VR 84, QTc 404 -Continue home dose with ASA, Clopidogrel -No longer on Norepinephrine Drip -Dr. Tubbs consulted, appreciate rec's -Monitor daily weights -Monitor MAP to maintain > 65 #Pulm Hx of COPD -Not on Home O2 -Continue Albuterol Sulfate NEB Q4H PRN, Albuterol/Ipratropium NEB RQID -Supplemental O2 to maintain Sats 88-95% #GI Transaminitis, Improving -Likely due to Septic Shock -CT A/P: No discrete noncontrast hepatic pathology is identified. Slightly distended fluid-filled small bowel loop and probably less likely a pathologic cystic structure. -Continue Pantoprazole, Senna -Dr. Graff consulted, appreciate rec's -Trend LFTs -Will need two-week follow-up CT with oral contrast for the above CT Finding -MRCP, EUS as outpatient #Renal Hypokalemia -Repleted -Monitor Urine Output #Heme Macrocytosis -Anemia possibly dilutional -B12, Folate Pending -No active signs of bleeding at this time #Endo Hx of IDDM, DKA -ISS BGMs ACHS -Levemir 7U ACBK -TSH 3.91; Would recheck once acute process resolves #MSK S/P Fall -CT Head, CT C-Spine No Fx -Pelvis XRay: Deformities of the right superior and inferior pubic rami to suggest fractures of unclear age. -Left Should XRay: Old proximal left humeral fracture is noted from 03/06/2017 with degenerative changes and slight deformity. An acute process is not seen. -Currently not in pain, Continue to monitor #ID Septic Shock Lactic Acidosis, Resolved -Likely due to Influenza (Positive serology) and LLL PNA -Afebrile > 24 hours, Without elevated WBC count -Vancomycin, Piperacillin/Tazobactam course completed (04/22-04/26) -Started Ceftriaxone 2gm daily -Continue Oseltamivir 75mg BID (Started on 04/22) to complete 5 day course -Tylenol PRN -Urine/Blood/Sputum cx, Legionella ag, Strep Pneumo Ag, MRSA Screen pending -Dr. Plummer consulted #FEN -Continue NS @ 100 mls/hr -Lytes WNL -Diabetic, Na Controlled diet #PPx -DVT: SCDs -GI: Pantoprazole #LTD -RIJ Placed on 04/22 -Jaramillo Catheter placed on 04/22 Code Status: Full Code Dispo: Transfer to Med-Surg, isolation room Visit type - Emergency Visit Emergency Visit: Yes ED Registration Date: 04/22/18 Care time: The patient presented to the Emergency Department on the above date and was hospitalized for further evaluation of their emergent condition. - New Patient This patient is new to me today: No - Critical Care Critical Care patient: Yes Total Critical Care Time (in minutes): 36 Critical Care Statement: The care of this patient involved high complexity decision making to prevent further life threatening deterioration of the patient 's condition and/or to evaluate & treat vital organ system(s) failure or risk of failure.
[2018-04-26] MEDS: SODIUM CHLORIDE 1,000 ML IV SCH ×2 (15:43→18:40)
[2018-04-26] MEDS ORDERED: DEXTROSE 5%-WATER 100 ML IVPB ONE (15:47)
[2018-04-26] MEDS: CLOPIDOGREL BISULFATE 75 MG TABLET (FP) PO SCH (15:48)
[2018-04-26] MEDS: CEFTRIAXONE 2 GM in DEXTROSE 5%-WATER 100 ML IVPB SCH (15:48)
[2018-04-27] MEDS: INSULIN (LEVEMIR) 100 UNITS/ML UNITS SQ SCH ×2 (06:44→22:02)
[2018-04-27] MEDS: INSULIN SLIDING SCALE (NOVOLOG) 1 VIAL SQ SCH ×4 (06:44→22:01)
[2018-04-27] MEDS: ALBUTEROL SO4 2.5/IPRATROPIUM 0.5 INH SOL 3 ML VIAL.NEB. NEB SCH ×4 (08:02→20:45)
--- NOTE | 2018-04-27 08:23 | PN ---
Physical Exam: SUBJECTIVE: Patient seen and examined this AM in ICU. Says she feels much better ; breathing continues to improve. Tolertaing diet. No new complaints. OBJECTIVE: Vital Signs Period Temp Pulse Resp BP Sys/Chen Pulse Ox Last 24 Hr 98.5 F-99.3 F 77-89 12-22 107-148/41-93 GENERAL: A&Ox3, NAD HEAD: Right Temporal laceration continues to heal. EYES: PERRL, EOMI ENT: Moist mucous membranes. NECK: Supple LUNGS: Diminished breath sounds at the bases, No wheezes, No crackles HEART: Regular rate and rhythm, S1, S2 without murmur ABDOMEN: Soft, nontender, nondistended, + bowel sounds, no guarding EXTREMITIES: No edema NEUROLOGICAL: Cranial nerves II through XII grossly intact. Normal speech. Chronic Resting tremor of the upper extremities, Head SKIN: Warm, dry. Laboratory Results - last 24 hr 04/26/18 04/26/18 04/26/18 11:59 16:55 20:38 POC Glucometer 163 264 317 04/27/18 06:22 POC Glucometer 253 Microbiology 04/22/18 12:23 Blood - Peripheral Venous Blood Culture - Preliminary NO GROWTH OBTAINED AFTER 96 HOURS, INCUBATION TO CONTINUE FOR 1 DAYS. 04/22/18 12:00 Blood - Peripheral Venous Blood Culture - Preliminary NO GROWTH OBTAINED AFTER 96 HOURS, INCUBATION TO CONTINUE FOR 1 DAYS. 04/23/18 11:30 Sputum - Expectorated Gram Stain - Final 04/23/18 11:30 Sputum - Expectorated Sputum Culture - Final Beta Hem Streptococcus Group F Yeast Like Organism 04/23/18 11:30 Nares - Right Nares MRSA Screen - Final NO MRSA ISOLATED 04/23/18 11:30 Nares - Mrsa Screen - Left MRSA Screen - Final NO MRSA ISOLATED 04/22/18 12:23 Urine - Urine Clean Catch Urine Culture - Final NO GROWTH OBTAINED 04/23/18 09:45 Urine For Antigen Detection Legionella Antigen - Final 04/23/18 09:45 Urine For Antigen Detection Streptococcus pneumoniae Antigen (M - Final Active Medications Acetaminophen (Tylenol -) 650 mg PO Q8H PRN PRN Reason: FEVER Last Admin: 04/24/18 21:19 Dose: 650 mg Albuterol Sulfate (Ventolin 0.083% Nebulizer Soln -) 1 amp NEB Q4H PRN PRN Reason: SHORT OF BREATH/WHEEZING Albuterol/Ipratropium (Duoneb -) 1 amp NEB RQID [facility] Last Admin: 04/26/18 20:52 Dose: 1 amp Aspirin (Asa -) 81 mg PO DAILY [facility] Last Admin: 04/26/18 09:35 Dose: 81 mg Clopidogrel Bisulfate (Plavix -) 75 mg PO DAILY [facility] Last Admin: 04/26/18 15:48 Dose: 75 mg Dextrose (D50w (Vial) -) 25 gm IVPUSH PRN PRN PRN Reason: Hypoglycemia BGM<70 Sodium Chloride (Normal Saline -) 1,000 mls @ 100 mls/hr IV ASDIR [facility] Last Admin: 04/26/18 18:40 Dose: Not Given Ceftriaxone Sodium 2 gm/ (Dextrose) 100 mls @ 200 mls/hr IVPB DAILY [facility]; Protocol Last Admin: 04/26/18 15:48 Dose: 200 mls/hr Ibuprofen (Motrin -) 600 mg PO Q8H PRN PRN Reason: PAIN LEVEL 1 - 3 Last Admin: 04/26/18 21:41 Dose: 600 mg Insulin Aspart (Novolog Vial Sliding Scale -) 1 vial SQ ACHS [facility]; Protocol Last Admin: 04/27/18 06:44 Dose: 6 units Insulin Detemir (Levemir Vial) 7 units SQ ACBK [facility] Last Admin: 04/27/18 06:44 Dose: 7 units Oseltamivir Phosphate (Tamiflu -) 75 mg PO BID [facility] Stop: 04/27/18 21:59 Last Admin: 04/26/18 21:42 Dose: 75 mg Pantoprazole Sodium (Protonix -) 40 mg PO DAILY [facility] Last Admin: 04/26/18 09:36 Dose: 40 mg Primidone (Mysoline -) 250 mg PO BID [facility] Last Admin: 04/26/18 21:42 Dose: 250 mg Senna (Senna -) 2 tab PO DAILY [facility] Last Admin: 04/26/18 09:35 Dose: 2 tab Silver Sulfadiazine (Silvadene -) 1 applic TP DAILY [facility] Last Admin: 04/26/18 11:48 Dose: 1 applic ASSESSMENT/PLAN: 58 y/o F with PMHx of IDDM, COPD, CAD s/p PCI, TBI w/ resultant tremor, prior admissions for DKA, found to be in septic shock likely due to Influenza and will be monitored in ICU. #Neuro Hx of TBI with resultant Tremor -A&Ox3, NAD -Continue home dose Primidone #Cardio Hx of CAD s/p PCI -Trop < 0.02 -EKG: NSR, VR 84, QTc 404 -Continue home dose with ASA, Clopidogrel -Dr. Tubbs consulted, appreciate rec's -Monitor daily weights -Monitor MAP to maintain > 65 #Pulm Hx of COPD -Not on Home O2 -Continue Albuterol Sulfate NEB Q4H PRN, Albuterol/Ipratropium NEB RQID -Supplemental O2 to maintain Sats 88-95% #GI Transaminitis, Improving -Likely due to Septic Shock -CT A/P: No discrete noncontrast hepatic pathology is identified. Slightly distended fluid-filled small bowel loop and probably less likely a pathologic cystic structure. -Continue Pantoprazole, Senna -Dr. Graff consulted, appreciate rec's -LFTs trending down -Will need two-week follow-up CT with oral contrast for the above CT Finding -MRCP, EUS as outpatient #Renal Hypokalemia -Repleted -Monitor Urine Output #Heme Macrocytosis -Anemia possibly dilutional -No active signs of bleeding at this time #Endo Hx of IDDM, DKA -ISS BGMs ACHS -Levemir 7U ACBK -TSH 3.91; Would recheck once acute process resolves #MSK S/P Fall -CT Head, CT C-Spine No Fx -Pelvis XRay: Deformities of the right superior and inferior pubic rami to suggest fractures of unclear age. -Left Should XRay: Old proximal left humeral fracture is noted from 03/06/2017 with degenerative changes and slight deformity. An acute process is not seen. -Currently not in pain, Continue to monitor #ID Septic Shock Lactic Acidosis, Resolved -Likely due to Influenza (Positive serology) and LLL PNA -Afebrile > 24 hours, Without elevated WBC count -Vancomycin, Piperacillin/Tazobactam course completed (04/22-04/26) -Started Ceftriaxone 2gm daily -Oseltamivir 75mg BID (Completed 5 day course) -Tylenol PRN -Urine/Blood/Sputum cx, Legionella ag, Strep Pneumo Ag, MRSA Screen pending -Dr. Plummer consulted #FEN -Continue NS @ 100 mls/hr -Natacha WNL -Diabetic, Na Controlled diet #PPx -DVT: SCDs -GI: Pantoprazole #LTD -RIJ Placed on 04/22; Removed on 04/26 -Jaramillo Catheter placed on 04/22; Removed on 04/26 Code Status: Full Code Dispo: Transfer to [facility], isolation room Visit type - Emergency Visit Emergency Visit: Yes ED Registration Date: 04/22/18 Care time: The patient presented to the Emergency Department on the above date and was hospitalized for further evaluation of their emergent condition. - New Patient This patient is new to me today: No - Critical Care Critical Care patient: Yes Total Critical Care Time (in minutes): 36 Critical Care Statement: The care of this patient involved high complexity decision making to prevent further life threatening deterioration of the patient 's condition and/or to evaluate & treat vital organ system(s) failure or risk of failure.
[2018-04-27] MEDS ORDERED: PT OWN MED DRAWER 7, Y5N ONE ×2 (09:08→23:16)
[2018-04-27] MEDS ORDERED: DEXTROSE 5%-WATER 100 ML IVPB ONE (09:09)
[2018-04-27] MEDS: ASPIRIN 81 MG CHEWABLE TABLETS PO SCH (09:12)
[2018-04-27] MEDS: OSELTAMIVIR PHOSPHATE 75 MG CAPSULE PO SCH ×2 (09:13→22:01)
[2018-04-27] MEDS: CLOPIDOGREL BISULFATE 75 MG TABLET (FP) PO SCH (09:14)
[2018-04-27] MEDS: PANTOPRAZOLE 40 MG TABLET (FP) PO SCH (09:14)
[2018-04-27] MEDS: PRIMIDONE 250 MG TABLET PO SCH ×2 (09:14→22:00)
[2018-04-27] MEDS: CEFTRIAXONE 2 GM in DEXTROSE 5%-WATER 100 ML IVPB SCH (09:15)
[2018-04-27] MEDS: SENNOSIDES 8.6MG TABLET (FP) PO SCH (09:15)
[2018-04-27 10:27] LABS: BASO % 0.2 % (0-2.0); EOS % 2.9 % (0-4.5); HEMATOCRIT 27.1 % (32.4-45.2); HEMOGLOBIN 9.4 GM/dL (10.7-15.3); LYMPH % 34.1 % (8-40); MCH 36.3 pg (25.7-33.7); MCHC 34.7 g/dl (32.0-36.0); MEAN CELL VOLUME 104.6 fl (80-96); MEAN PLT VOLUME 8.1 fl (7.5-11.1); MONO % 12.5 % (3.8-10.2); NEUT % 50.3 % (42.8-82.8); PLATELET COUNT 287 K/MM3 (134-434); RDW 12.5 % (11.6-15.6); WHITE BLOOD COUNT 3.6 K/mm3 (4.0-10.0)
--- NOTE | 2018-04-27 10:59 | PN ---
Progress Note, Physician History of Present Illness: AWAKE, ALERT TEMPS DOWN AFEBRILE LEUKOPENIC NO COMPLAINTS + TREMOR DENIES CHEST PAIN/ DYSPNEA/ COUGH BC (-) LEGIONELLA/ PNEUMOCOCCAL AG (-) SPUTUM GRP F STREP, YLO LFTS IMPROVED - Current Medication List Current Medications: Active Medications Acetaminophen (Tylenol -) 650 mg PO Q8H PRN PRN Reason: FEVER Last Admin: 04/24/18 21:19 Dose: 650 mg Albuterol Sulfate (Ventolin 0.083% Nebulizer Soln -) 1 amp NEB Q4H PRN PRN Reason: SHORT OF BREATH/WHEEZING Albuterol/Ipratropium (Duoneb -) 1 amp NEB RQID [facility] Last Admin: 04/27/18 08:02 Dose: 1 amp Aspirin (Asa -) 81 mg PO DAILY [facility] Last Admin: 04/27/18 09:12 Dose: 81 mg Clopidogrel Bisulfate (Plavix -) 75 mg PO DAILY [facility] Last Admin: 04/27/18 09:14 Dose: 75 mg Dextrose (D50w (Vial) -) 25 gm IVPUSH PRN PRN PRN Reason: Hypoglycemia BGM<70 Sodium Chloride (Normal Saline -) 1,000 mls @ 100 mls/hr IV ASDIR [facility] Last Admin: 04/26/18 18:40 Dose: Not Given Ceftriaxone Sodium 2 gm/ (Dextrose) 100 mls @ 200 mls/hr IVPB DAILY [facility]; Protocol Last Admin: 04/27/18 09:15 Dose: 200 mls/hr Ibuprofen (Motrin -) 600 mg PO Q8H PRN PRN Reason: PAIN LEVEL 1 - 3 Last Admin: 04/26/18 21:41 Dose: 600 mg Insulin Aspart (Novolog Vial Sliding Scale -) 1 vial SQ ACHS [facility]; Protocol Last Admin: 04/27/18 06:44 Dose: 6 units Insulin Detemir (Levemir Vial) 7 units SQ ACBK [facility] Last Admin: 04/27/18 06:44 Dose: 7 units Oseltamivir Phosphate (Tamiflu -) 75 mg PO BID [facility] Stop: 04/27/18 21:59 Last Admin: 04/27/18 09:13 Dose: 75 mg Pantoprazole Sodium (Protonix -) 40 mg PO DAILY [facility] Last Admin: 04/27/18 09:14 Dose: 40 mg Primidone (Mysoline -) 250 mg PO BID [facility] Last Admin: 04/27/18 09:14 Dose: 250 mg Senna (Senna -) 2 tab PO DAILY [facility] Last Admin: 04/27/18 09:15 Dose: Not Given Silver Sulfadiazine (Silvadene -) 1 applic TP DAILY [facility] Last Admin: 04/26/18 11:48 Dose: 1 applic - Objective Vital Signs: Vital Signs Temperature 98.7 F 04/27/18 10:04 Pulse Rate 97 H 04/27/18 10:30 Respiratory Rate 17 04/27/18 10:30 Blood Pressure 119/56 L 04/27/18 10:30 O2 Sat by Pulse Oximetry (%) 96 04/25/18 21:00 Constitutional: Yes: No Distress Eyes: Yes: Conjunctiva Clear Cardiovascular: Yes: Regular Rate and Rhythm, S1, S2 Respiratory: Yes: CTA Bilaterally Gastrointestinal: Yes: Normal Bowel Sounds, Soft. No: Tenderness Edema: No Labs: CBC, BMP 04/27/18 09:56 INR, PTT INR 1.26 (0.83-1.09) H 04/22/18 12:00 Assessment/Plan ACUTE INFLUENZA A ? PNEUMONIA (HCAP) SEPSIS/ SEPTIC SHOCK ELEVATED LFTS IMPROVED OFF PRESSORS CONTINUE TAMIFLU COMPLETE 5D COURSE SUBSTITUTE CEFTRIAXONE MAINTAIN ISOLATION X 24HR
[2018-04-27 11:07] LABS: ALBUMIN 1.8 g/dl (3.4-5.0); ALK PHOS 276 U/L (45-117); ANION GAP 5 MMOL/L (8-16); BILIRUBIN,TOTAL 0.2 mg/dL (0.2-1); BLOOD UREA NITROGEN 6 mg/dL (7-18); CALCIUM 7.3 mg/dL (8.5-10.1); CHLORIDE 109 mmol/L (98-107); CO2 27 mmol/L (21-32); CREATININE 0.3 mg/dL (0.55-1.3); GLUCOSE,RANDOM 204 mg/dL (74-106); PHOSPHOROUS 1.7 mg/dL (2.5-4.9); POTASSIUM 3.7 mmol/L (3.5-5.1); SGOT/AST 34 U/L (15-37); SGPT/ALT 92 U/L (13-61); SODIUM 140 mmol/L (136-145); TOT PROT 4.8 g/dl (6.4-8.2)
[2018-04-27] MEDS: SODIUM CHLORIDE 1,000 ML IV SCH (12:22)
[2018-04-27] MEDS ORDERED: DEXTROSE 50%-WATER - 25 GM/50 ML VIAL IVPUSH PRN (13:13)
[2018-04-27] MEDS ORDERED: IBUPROFEN 600 MG TABLET (FP) PO PRN (13:13)
[2018-04-27] MEDS ORDERED: ALBUTEROL SO4 0.083% IH SOL 2.5 MG/3 ML VIAL.NEB. NEB PRN (13:13)
[2018-04-27] MEDS ORDERED: SODIUM CHLORIDE 1,000 ML IV SCH (13:13)
--- NOTE | 2018-04-27 15:00 | PN ---
Teaching Attending Note Name of Resident: Tyesha Garza ATTENDING PHYSICIAN STATEMENT I saw and evaluated the patient. I reviewed the resident's note and discussed the case with the resident. I agree with the resident's findings and plan as documented. SUBJECTIVE: Patient seen and examined in the ICU. Awake and responsive. Remains off NE for hemodynamic support. Denies CP or SOB. Intake & Output 04/24/18 04/25/18 04/26/18 04/27/18 23:59 23:59 23:59 23:59 Intake Total 3925 3290 2950 1520 Output Total 3200 1500 2900 Balance 725 1790 50 1520 Weight 97 lb Last Vital Signs Temp Pulse Resp BP Pulse Ox 98.7 F 99 H 22 H 140/64 94 L 04/27/18 13:21 04/27/18 13:21 04/27/18 13:21 04/27/18 13:21 04/27/18 09:00 Active Medications Acetaminophen (Tylenol -) 650 mg PO Q8H PRN PRN Reason: FEVER Albuterol Sulfate (Ventolin 0.083% Nebulizer Soln -) 1 amp NEB Q4H PRN PRN Reason: SHORT OF BREATH/WHEEZING Albuterol/Ipratropium (Duoneb -) 1 amp NEB RQID [facility] Aspirin (Asa -) 81 mg PO DAILY [facility] Clopidogrel Bisulfate (Plavix -) 75 mg PO DAILY [facility] Dextrose (D50w (Vial) -) 25 gm IVPUSH PRN PRN PRN Reason: Hypoglycemia BGM<70 Ceftriaxone Sodium 2 gm/ (Dextrose) 100 mls @ 200 mls/hr IVPB DAILY [facility]; Protocol Sodium Chloride (Normal Saline -) 1,000 mls @ 100 mls/hr IV ASDIR [facility] Ibuprofen (Motrin -) 600 mg PO Q8H PRN PRN Reason: PAIN LEVEL 1 - 3 Insulin Aspart (Novolog Vial Sliding Scale -) 1 vial SQ ACHS [facility]; Protocol Insulin Detemir (Levemir Vial) 7 units SQ ACBK [facility] Oseltamivir Phosphate (Tamiflu -) 75 mg PO BID [facility] Stop: 05/02/18 21:59 Pantoprazole Sodium (Protonix -) 40 mg PO DAILY [facility] Primidone (Mysoline -) 250 mg PO BID [facility] Senna (Senna -) 2 tab PO DAILY [facility] Silver Sulfadiazine (Silvadene -) 1 applic TP DAILY [facility] Constitutional: Yes: NAD, awake and alert Eyes: Yes: Conjunctiva Clear, EOM Intact, PERRL HENT: Yes: healing laceration Neck: Yes: Supple, Trachea Midline. No: Lymphadenopathy, Rigid, Tenderness, Thyromegaly Cardiovascular: Yes: Regular Rate and Rhythm, S1, S2. No: Murmur Respiratory: Yes: Bibasilar rhonchi: Right > Left Gastrointestinal: Yes: Normal Bowel Sounds, Soft Edema: No Peripheral Pulses WNL: Yes Integumentary: Yes: Laceration, Pressure Ulcer (stage 1 pressure with [id number] ulcer on left upper buttocks and small ulcer at base of right shoulder and left knee with scab) Neurological: Yes: Alert, Oriented, Tremors (resting diffuse tremors in b/l UE and head) ...Motor Strength: LUE (3/5 hand sales architect), LLE (3/5 hip extension), RUE (2/5 hand sales architect, unable to fully extend shoulder), RLE (3/5 hip extension) Labs: Assessment/Plan Resolved Septic Shock due to Influenza / LLL PNA / R.O decubitus ulcers COPD Essential tremor Transminitis DM ABX per ID IVF Tamiflu to complete 5 days PO as tolerated O2 as needed Plavix / ASA BD [place] PRN Floor Dr Pena
--- NOTE | 2018-04-27 15:21 | PN ---
Progress Note, Physician History of Present Illness: Pt is on medical floor. Pt w/o chills, fever, cough, CP, palpitations, nausea, vomiting, abd pain. - Current Medication List Current Medications: Active Medications Acetaminophen (Tylenol -) 650 mg PO Q8H PRN PRN Reason: FEVER Albuterol Sulfate (Ventolin 0.083% Nebulizer Soln -) 1 amp NEB Q4H PRN PRN Reason: SHORT OF BREATH/WHEEZING Albuterol/Ipratropium (Duoneb -) 1 amp NEB RQID [facility] Aspirin (Asa -) 81 mg PO DAILY [facility] Clopidogrel Bisulfate (Plavix -) 75 mg PO DAILY [facility] Dextrose (D50w (Vial) -) 25 gm IVPUSH PRN PRN PRN Reason: Hypoglycemia BGM<70 Ceftriaxone Sodium 2 gm/ (Dextrose) 100 mls @ 200 mls/hr IVPB DAILY [facility]; Protocol Sodium Chloride (Normal Saline -) 1,000 mls @ 100 mls/hr IV ASDIR [facility] Ibuprofen (Motrin -) 600 mg PO Q8H PRN PRN Reason: PAIN LEVEL 1 - 3 Insulin Aspart (Novolog Vial Sliding Scale -) 1 vial SQ ACHS [facility]; Protocol Insulin Detemir (Levemir Vial) 7 units SQ ACBK [facility] Oseltamivir Phosphate (Tamiflu -) 75 mg PO BID [facility] Stop: 05/02/18 21:59 Pantoprazole Sodium (Protonix -) 40 mg PO DAILY [facility] Primidone (Mysoline -) 250 mg PO BID [facility] Senna (Senna -) 2 tab PO DAILY [facility] Silver Sulfadiazine (Silvadene -) 1 applic TP DAILY [facility] - Objective Vital Signs: Vital Signs Temperature 98.7 F 04/27/18 13:21 Pulse Rate 99 H 04/27/18 13:21 Respiratory Rate 22 H 04/27/18 13:21 Blood Pressure 140/64 04/27/18 13:21 O2 Sat by Pulse Oximetry (%) 94 L 04/27/18 09:00 Constitutional: Yes: No Distress, Calm, Other (dry mucosa) Cardiovascular: Yes: Regular Rate and Rhythm, S1, S2 Respiratory: Yes: Regular, Rales (minimal at bases) Gastrointestinal: Yes: Normal Bowel Sounds, Soft. No: Tenderness Edema: No Neurological: Yes: Alert, Oriented Labs: CBC, BMP 04/27/18 09:56 04/27/18 09:56 INR, PTT INR 1.26 (0.83-1.09) H 04/22/18 12:00 Problem List - Problems (1) Septic shock Code(s): A41.9 - SEPSIS, UNSPECIFIED ORGANISM; R65.21 - SEVERE SEPSIS WITH SEPTIC SHOCK (2) PNA (pneumonia) Code(s): J18.9 - PNEUMONIA, UNSPECIFIED ORGANISM (3) Influenza A Code(s): J10.1 - FLU DUE TO OTH IDENT INFLUENZA VIRUS W OTH RESP MANIFEST (4) Elevated LFTs Code(s): R94.5 - ABNORMAL RESULTS OF LIVER FUNCTION STUDIES (5) CAD (coronary artery disease) Code(s): I25.10 - ATHSCL HEART DISEASE OF [place] CORONARY ARTERY W/O ANG PCTRS (6) Hx of CABG Code(s): Z95.1 - PRESENCE OF AORTOCORONARY BYPASS GRAFT (7) IDDM (insulin dependent diabetes mellitus) Code(s): E11.9 - TYPE 2 DIABETES MELLITUS WITHOUT COMPLICATIONS; Z79.4 - COMMERCIAL CONSTRUCTION SUPERINTENDENT (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 OF INSULIN (8) Impaired gait Code(s): R26.9 - UNSPECIFIED ABNORMALITIES OF GAIT AND MOBILITY (9) Weakness Code(s): R53.1 - WEAKNESS (10) Humeral head fracture Code(s): S42.293A - OTH DISP FX OF UPPER END OF UNSP HUMERUS, INIT FOR CLOS FX (11) Knee fracture, left Code(s): SED8559 - (12) Wound infection complicating hardware Code(s): T84.7XXA - INFECT/INFLM REACT DUE TO OTH INT ORTH PROSTH DEV/GRFT, INIT Qualifiers: Encounter type: initial encounter Qualified Code(s): T84.7XXA - Infection and inflammatory reaction due to other internal orthopedic prosthetic devices, implants and grafts, initial encounter (13) Essential tremor Code(s): G25.0 - ESSENTIAL TREMOR (14) Asthma Code(s): J45.909 - UNSPECIFIED ASTHMA, UNCOMPLICATED (15) COPD (chronic obstructive pulmonary disease) Code(s): J44.9 - CHRONIC OBSTRUCTIVE PULMONARY DISEASE, UNSPECIFIED (16) Anemia Code(s): D64.9 - ANEMIA, UNSPECIFIED (17) Malnutrition Code(s): E46 - UNSPECIFIED PROTEIN-CALORIE MALNUTRITION (18) Hyponatremia Code(s): E87.1 - HYPO-OSMOLALITY AND HYPONATREMIA Assessment/Plan Pt presented with hypotension, failed fluid resuscitation, Central line was placed in ER and pt to be started on Levophed and admitted to ICU. Pt's BP improved; pt came off Levophed; pt was transferred to medical floor CCM, ID, Cardio, GI consults are appreciated. IV abtx Tamiflu LFT's are improving (probable in the setting of sepsis). Levemiri ACBK; to add Levemir at night. Na improved AM labs; Case was d/w pt's ER nurse. Prognosis: improving.
--- NOTE | 2018-04-27 18:12 | PN ---
GI Progress Note Subjective: GI NOte: Feeling much better. Tolerating solid diet. LFTs are normalizing - Objective Vital Signs: Vital Signs Temperature 98.7 F 04/27/18 13:21 Pulse Rate 99 H 04/27/18 13:21 Respiratory Rate 22 H 04/27/18 13:21 Blood Pressure 140/64 04/27/18 13:21 O2 Sat by Pulse Oximetry (%) 94 L 04/27/18 09:00 Laboratory Tests 04/22/18 04/22/18 04/24/18 12:00 12:00 05:05 WBC 7.6 Hgb 11.6 Total Bilirubin AST ALT 480 H Alkaline Phosphatase 372 H 309 H 04/25/18 04/25/18 04/26/18 05:30 05:30 05:30 WBC Hgb 8.3 L Total Bilirubin AST ALT Alkaline Phosphatase 302 H 317 H 04/27/18 04/27/18 09:56 09:56 WBC 3.6 L Hgb 9.4 L Total Bilirubin 0.2 AST 34 ALT 92 H Alkaline Phosphatase 276 H Constitutional: Calm ...Auscultate: Yes: Normoactive Bowel Sounds ...Palpate: Yes: Soft, Other (nontender) Labs: CBC, BMP 04/27/18 09:56 04/27/18 09:56 INR, PTT INR 1.26 (0.83-1.09) H 04/22/18 12:00 Assessment/Plan Impression: Reactive hepatopathy rather than shock liver or cholangitis Peripancreatic collection could be a mucinous pancreatic cyst or IPMN and needs further evaluation Plan: Pancreas protocol MRI EUS as outpatient Ultimately will need tubular adenoma surveillance Problem List - Problems (1) Elevated LFTs Code(s): R94.5 - ABNORMAL RESULTS OF LIVER FUNCTION STUDIES (2) Cystic mass of pancreas Assessment/Plan: It not not clear whether the CT abnormality is attached to the pancreas. Will order dedicated pancreatic MRI. She may ultimately need an EUS. Will reorder Ca 19.9 and IGG4 Code(s): K86.2 - CYST OF PANCREAS (3) Tubular adenoma of colon Code(s): D12.6 - BENIGN NEOPLASM OF COLON, UNSPECIFIED (4) History of cancer of vagina Code(s): Z85.44 - PERSONAL HISTORY OF MALIG NEOPLASM OF FEMALE GENITAL ORGANS (5) Septic shock Code(s): A41.9 - SEPSIS, UNSPECIFIED ORGANISM; R65.21 - SEVERE SEPSIS WITH SEPTIC SHOCK (6) Diabetes mellitus Code(s): E11.9 - TYPE 2 DIABETES MELLITUS WITHOUT COMPLICATIONS (7) Essential tremor Code(s): G25.0 - ESSENTIAL TREMOR (8) Facial contusion Code(s): S00.83XA - CONTUSION OF OTHER PART OF HEAD, INITIAL ENCOUNTER Qualifiers: Encounter type: initial encounter Qualified Code(s): S00.83XA - Contusion of other part of head, initial encounter (9) IDDM (insulin dependent diabetes mellitus) Code(s): E11.9 - TYPE 2 DIABETES MELLITUS WITHOUT COMPLICATIONS; Z79.4 - RETIREMENT (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 OF INSULIN (10) CAD (coronary artery disease) Code(s): I25.10 - ATHSCL HEART DISEASE OF [place] CORONARY ARTERY W/O ANG PCTRS (11) Influenza A Code(s): J10.1 - FLU DUE TO OTH IDENT INFLUENZA VIRUS W OTH RESP MANIFEST
[2018-04-27] MEDS ORDERED: INSULIN (NOVOLOG) ASPART 100 UNITS/ML 10ML VIAL ONE (21:05)
[2018-04-27] MEDS ORDERED: POTASSIUM PHOSPHATE 15 MM in SODIUM CHLORIDE 250 ML IVPB ONE (22:58)
--- NOTE | 2018-04-28 04:43 | PN ---
Progress Note, Physician Chief Complaint: Pt A&Ox3; denies pain, dyspnea. History of Present Illness: The patient is a 58 year old white woman with a significant past medical history of IDDM, left tib/fib fracture s/p ORIF 2015, prior admission for DKA - sent to surgeon at [facility] where bone scan displayed left knee septic arthritis, resulting in removal of hardware; CAD-->coronary stents in ?2004, COPD, anxiety, tremors, who presents to the emergency department today complaining of a fall one day ago. The patient states she slipped in the bathtub a day ago and was there until her home economist consumer service came and found her there. She denies LOC. She reports pain to her left shoulder and that she hit her right side of her head, where there is now dry blood. The patient also explains that she has had a productive cough well before the fall. - Current Medication List Current Medications: Active Medications Acetaminophen (Tylenol -) 650 mg PO Q8H PRN PRN Reason: FEVER Albuterol Sulfate (Ventolin 0.083% Nebulizer Soln -) 1 amp NEB Q4H PRN PRN Reason: SHORT OF BREATH/WHEEZING Albuterol/Ipratropium (Duoneb -) 1 amp NEB RQID [facility] Last Admin: 04/27/18 20:45 Dose: 1 amp Aspirin (Asa -) 81 mg PO DAILY [facility] Clopidogrel Bisulfate (Plavix -) 75 mg PO DAILY [facility] Dextrose (D50w (Vial) -) 25 gm IVPUSH PRN PRN PRN Reason: Hypoglycemia BGM<70 Ceftriaxone Sodium 2 gm/ (Dextrose) 100 mls @ 200 mls/hr IVPB DAILY [facility]; Protocol Sodium Chloride (Normal Saline -) 1,000 mls @ 100 mls/hr IV ASDIR [facility] Last Admin: 04/27/18 22:03 Dose: 100 mls/hr Ibuprofen (Motrin -) 600 mg PO Q8H PRN PRN Reason: PAIN LEVEL 1 - 3 Insulin Aspart (Novolog Vial Sliding Scale -) 1 vial SQ ACHS [facility]; Protocol Last Admin: 04/27/18 22:01 Dose: 4 unit Insulin Detemir (Levemir Vial) 7 units SQ ACBK [facility] Insulin Detemir (Levemir Vial) 4 units SQ HS [facility] Last Admin: 04/27/18 22:02 Dose: 4 units Oseltamivir Phosphate (Tamiflu -) 75 mg PO BID [facility] Stop: 05/02/18 21:59 Last Admin: 04/27/18 22:01 Dose: 75 mg Pantoprazole Sodium (Protonix -) 40 mg PO DAILY [facility] Primidone (Mysoline -) 250 mg PO BID [facility] Last Admin: 04/27/18 22:00 Dose: 250 mg Senna (Senna -) 2 tab PO DAILY [facility] Silver Sulfadiazine (Silvadene -) 1 applic TP DAILY [facility] - Objective Vital Signs: Vital Signs Temperature 99.1 F 04/28/18 02:00 Pulse Rate 85 04/28/18 02:00 Respiratory Rate 20 04/28/18 02:00 Blood Pressure 129/96 04/28/18 02:00 O2 Sat by Pulse Oximetry (%) 95 04/27/18 21:00 Constitutional: Yes: No Distress, Thin Eyes: Yes: WNL HENT: Yes: WNL Neck: Yes: WNL Cardiovascular: Yes: S1, S2 Respiratory: Yes: Regular Gastrointestinal: Yes: Soft ...Rectal Exam: Yes: Deferred Genitourinary: Yes: Anuria Breast(s): Yes: WNL Musculoskeletal: Yes: Muscle Weakness Extremities: Yes: Cool Edema: No Peripheral Pulses WNL: No Peripheral Pulses: Left Doralis Pedis: 1+, Right Dorsalis Pedis: 1+ Integumentary: Yes: WNL Neurological: Yes: Alert, Oriented, Weakness Psychiatric: Yes: Alert, Oriented Labs: CBC, BMP 04/27/18 09:56 04/27/18 09:56 INR, PTT INR 1.26 (0.83-1.09) H 04/22/18 12:00 Abnormal Lab Results 04/27/18 04/27/18 09:56 09:56 WBC 3.6 L RBC 2.60 L Hgb 9.4 L Hct 27.1 L MCV 104.6 H MCH 36.3 H Monocytes % 12.5 H Chloride 109 H Anion Gap 5 L BUN 6 L Creatinine 0.3 L Random Glucose 204 H Calcium 7.3 L Phosphorus 1.7 L ALT 92 H Alkaline Phosphatase 276 H Total Protein 4.8 L Albumin 1.8 L Problem List - Problems (1) S/P coronary artery stent placement Code(s): Z95.5 - PRESENCE OF CORONARY ANGIOPLASTY IMPLANT AND GRAFT (2) Fall Code(s): W19.XXXA - UNSPECIFIED FALL, INITIAL ENCOUNTER (3) Hypokalemia Assessment/Plan: Repleted K; keep 4.0-4.5. F/u Mg (1.8 on 04/24/18): keep 2.0-2.4 Keep PO4 2.5-4.9. Code(s): E87.6 - HYPOKALEMIA (4) COPD (chronic obstructive pulmonary disease) Code(s): J44.9 - CHRONIC OBSTRUCTIVE PULMONARY DISEASE, UNSPECIFIED (5) Diabetic autonomic neuropathy associated with diabetes mellitus due to underlying condition Code(s): E08.43 - DIAB DUE TO UNDRL COND W DIABETIC AUTONM (POLY)NEUROPATHY (6) Dehydration Assessment/Plan: BUN/Cr improved. Off pressors. Reduce IV fluids. F/u Is and Os Code(s): E86.0 - DEHYDRATION (7) Elevated LFTs Assessment/Plan: Acute elevation; now decreasing; GI w/u in progress (r/o pancreatic source). Code(s): R94.5 - ABNORMAL RESULTS OF LIVER FUNCTION STUDIES Assessment/Plan CCU time spent: 35 minutes.
[2018-04-28] MEDS: INSULIN SLIDING SCALE (NOVOLOG) 1 VIAL SQ SCH ×4 (06:36→21:32)
[2018-04-28] MEDS: INSULIN (LEVEMIR) 100 UNITS/ML UNITS SQ SCH ×2 (06:37→21:32)
[2018-04-28] MEDS: ACETAMINOPHEN 325 MG TABLET (FP) PO PRN (06:38)
[2018-04-28 09:35] LABS: HEMATOCRIT 24.6 % (32.4-45.2); HEMOGLOBIN 8.5 GM/dL (10.7-15.3); MCH 35.9 pg (25.7-33.7); MCHC 34.7 g/dl (32.0-36.0); MEAN CELL VOLUME 103.4 fl (80-96); MEAN PLT VOLUME 7.6 fl (7.5-11.1); PLATELET COUNT 391 K/MM3 (134-434); RBC 2.38 M/mm3 (3.60-5.2); RDW 12.6 % (11.6-15.6); WHITE BLOOD COUNT 4.8 K/mm3 (4.0-10.0)
[2018-04-28] MEDS: ALBUTEROL SO4 2.5/IPRATROPIUM 0.5 INH SOL 3 ML VIAL.NEB. NEB SCH ×4 (09:41→20:50)
[2018-04-28 10:06] LABS: ANION GAP 5 MMOL/L (8-16); BLOOD UREA NITROGEN 4 mg/dL (7-18); CALCIUM 7.2 mg/dL (8.5-10.1); CHLORIDE 111 mmol/L (98-107); CO2 24 mmol/L (21-32); CREATININE 0.2 mg/dL (0.55-1.3); GLUCOSE,RANDOM 98 mg/dL (74-106); MAGNESIUM 1.6 mg/dL (1.8-2.4); PHOSPHOROUS 2.4 mg/dL (2.5-4.9); SODIUM 140 mmol/L (136-145)
[2018-04-28] MEDS ORDERED: PT OWN MED DRAWER 7, Y5N ONE ×2 (10:22→21:02)
[2018-04-28] MEDS ORDERED: DEXTROSE 5%-WATER 100 ML IVPB ONE (10:22)
[2018-04-28] MEDS: CEFTRIAXONE 2 GM in DEXTROSE 5%-WATER 100 ML IVPB SCH (10:39)
[2018-04-28] MEDS: OSELTAMIVIR PHOSPHATE 75 MG CAPSULE PO SCH (10:40)
[2018-04-28] MEDS: CLOPIDOGREL BISULFATE 75 MG TABLET (FP) PO SCH (10:40)
[2018-04-28] MEDS: ASPIRIN 81 MG CHEWABLE TABLETS PO SCH (10:40)
[2018-04-28] MEDS: PRIMIDONE 250 MG TABLET PO SCH ×2 (10:40→21:27)
[2018-04-28] MEDS: SENNOSIDES 8.6MG TABLET (FP) PO SCH (10:40)
[2018-04-28] MEDS: PANTOPRAZOLE 40 MG TABLET (FP) PO SCH (10:41)
[2018-04-28] MEDS: SILVER SULFADIAZINE 1% TOP CREAM 50 GM JAR TP SCH (10:48)
--- NOTE | 2018-04-28 10:52 | PN ---
GI Progress Note Subjective: GI NOte: Radha declined to have the MRI last night. I again explained that there is a cystic collection anterior to the pancreas which requires further definition to exclude a malignancy. She has told me that she does not want any further studies in this regard.She denies abdominal pain. No LFTs done today. - Objective Vital Signs: Vital Signs Temperature 100.7 F H 04/28/18 06:00 Pulse Rate 94 H 04/28/18 06:00 Respiratory Rate 20 04/28/18 06:00 Blood Pressure 147/71 04/28/18 06:00 O2 Sat by Pulse Oximetry (%) 95 04/27/18 21:00 Laboratory Tests 04/28/18 09:13 Tumor Marker AFP Pending CA 19-9 Antigen Pending Constitutional: Calm ...Auscultate: Yes: Normoactive Bowel Sounds ...Palpate: Yes: Soft, Other (nontender) Labs: CBC, BMP 04/28/18 09:13 04/28/18 09:13 INR, PTT INR 1.26 (0.83-1.09) H 04/22/18 12:00 Assessment/Plan Impression: Reactive hepatopathy Peripancreatic collection, Further evaluation declined Plan: Ultimately will need tubular adenoma surveillance. Please refer to followup with Viktor Short after discharge Repeat LFts Problem List - Problems (1) Elevated LFTs Code(s): R94.5 - ABNORMAL RESULTS OF LIVER FUNCTION STUDIES (2) Cystic mass of pancreas Code(s): K86.2 - CYST OF PANCREAS (3) Tubular adenoma of colon Code(s): D12.6 - BENIGN NEOPLASM OF COLON, UNSPECIFIED (4) History of cancer of vagina Code(s): Z85.44 - PERSONAL HISTORY OF MALIG NEOPLASM OF FEMALE GENITAL ORGANS (5) Septic shock Code(s): A41.9 - SEPSIS, UNSPECIFIED ORGANISM; R65.21 - SEVERE SEPSIS WITH SEPTIC SHOCK (6) Diabetes mellitus Code(s): E11.9 - TYPE 2 DIABETES MELLITUS WITHOUT COMPLICATIONS (7) Essential tremor Code(s): G25.0 - ESSENTIAL TREMOR (8) Facial contusion Code(s): S00.83XA - CONTUSION OF OTHER PART OF HEAD, INITIAL ENCOUNTER Qualifiers: Encounter type: initial encounter Qualified Code(s): S00.83XA - Contusion of other part of head, initial encounter (9) IDDM (insulin dependent diabetes mellitus) Code(s): E11.9 - TYPE 2 DIABETES MELLITUS WITHOUT COMPLICATIONS; Z79.4 - CERAMIC WORKER (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 OF INSULIN (10) CAD (coronary artery disease) Code(s): I25.10 - ATHSCL HEART DISEASE OF [place] CORONARY ARTERY W/O ANG PCTRS (11) Influenza A Code(s): J10.1 - FLU DUE TO OTH IDENT INFLUENZA VIRUS W OTH RESP MANIFEST
--- NOTE | 2018-04-28 12:10 | PN ---
Progress Note, Physician History of Present Illness: The patient is a 58 year old white woman with a significant past medical history of IDDM, left tib/fib fracture s/p ORIF 2015, prior admission for DKA - sent to surgeon at [facility] where bone scan displayed left knee septic arthritis, resulting in removal of hardware; CAD-->coronary stents in ?2004, COPD, anxiety, tremors, who presents to the emergency department today complaining of a fall one day ago. 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 She denies LOC. She reports pain to her left shoulder and that she hit her right side of her head, where there is now dry blood. The patient also explains that she has had a productive cough well before the fall. - Current Medication List Current Medications: Active Medications Acetaminophen (Tylenol -) 650 mg PO Q8H PRN PRN Reason: FEVER Last Admin: 04/28/18 06:38 Dose: 650 mg Albuterol Sulfate (Ventolin 0.083% Nebulizer Soln -) 1 amp NEB Q4H PRN PRN Reason: SHORT OF BREATH/WHEEZING Albuterol/Ipratropium (Duoneb -) 1 amp NEB RQID [facility] Last Admin: 04/28/18 09:41 Dose: 1 amp Aspirin (Asa -) 81 mg PO DAILY [facility] Last Admin: 04/28/18 10:40 Dose: 81 mg Clopidogrel Bisulfate (Plavix -) 75 mg PO DAILY [facility] Last Admin: 04/28/18 10:40 Dose: 75 mg Dextrose (D50w (Vial) -) 25 gm IVPUSH PRN PRN PRN Reason: Hypoglycemia BGM<70 Ceftriaxone Sodium 2 gm/ (Dextrose) 100 mls @ 200 mls/hr IVPB DAILY [facility]; Protocol Last Admin: 04/28/18 10:39 Dose: 200 mls/hr Sodium Chloride (Normal Saline -) 1,000 mls @ 100 mls/hr IV ASDIR [facility] Last Admin: 04/27/18 22:03 Dose: 100 mls/hr Ibuprofen (Motrin -) 600 mg PO Q8H PRN PRN Reason: PAIN LEVEL 1 - 3 Insulin Aspart (Novolog Vial Sliding Scale -) 1 vial SQ ACHS [facility]; Protocol Last Admin: 04/28/18 06:36 Dose: 2 unit Insulin Detemir (Levemir Vial) 7 units SQ ACBK [facility] Last Admin: 04/28/18 06:37 Dose: 7 units Insulin Detemir (Levemir Vial) 4 units SQ HS [facility] Last Admin: 04/27/18 22:02 Dose: 4 units Oseltamivir Phosphate (Tamiflu -) 75 mg PO BID [facility] Stop: 05/02/18 21:59 Last Admin: 04/28/18 10:40 Dose: 75 mg Pantoprazole Sodium (Protonix -) 40 mg PO DAILY [facility] Last Admin: 04/28/18 10:41 Dose: 40 mg Primidone (Mysoline -) 250 mg PO BID [facility] Last Admin: 04/28/18 10:40 Dose: 250 mg Senna (Senna -) 2 tab PO DAILY [facility] Last Admin: 04/28/18 10:40 Dose: 2 tab Silver Sulfadiazine (Silvadene -) 1 applic TP DAILY [facility] - Objective Vital Signs: Vital Signs Temperature 100.7 F H 04/28/18 06:00 Pulse Rate 94 H 04/28/18 06:00 Respiratory Rate 20 04/28/18 06:00 Blood Pressure 147/71 04/28/18 06:00 O2 Sat by Pulse Oximetry (%) 95 04/27/18 21:00 Eyes: Yes: WNL, Conjunctiva Clear, EOM Intact HENT: Yes: WNL, Atraumatic, Normocephalic Neck: Yes: WNL, Supple, Trachea Midline Cardiovascular: Yes: WNL, Regular Rate and Rhythm Respiratory: Yes: WNL, Regular, CTA Bilaterally Gastrointestinal: Yes: WNL, Normal Bowel Sounds Genitourinary: Yes: WNL Musculoskeletal: Yes: WNL Extremities: Yes: WNL Edema: No Integumentary: Yes: WNL ...Motor Strength: WNL Psychiatric: Yes: WNL Labs: CBC, BMP 04/28/18 09:13 04/28/18 09:13 INR, PTT INR 1.26 (0.83-1.09) H 04/22/18 12:00 Assessment/Plan - Problems (1) S/P coronary artery stent placement Code(s): Z95.5 - PRESENCE OF CORONARY ANGIOPLASTY IMPLANT AND GRAFT (2) Fall Code(s): W19.XXXA - UNSPECIFIED FALL, INITIAL ENCOUNTER (3) Hypokalemia Assessment/Plan: Repleted K; keep 4.0-4.5. F/u Mg (1.8 on 04/24/18): keep 2.0-2.4 Keep PO4 2.5-4.9. Code(s): E87.6 - HYPOKALEMIA (4) COPD (chronic obstructive pulmonary disease) Code(s): J44.9 - CHRONIC OBSTRUCTIVE PULMONARY DISEASE, UNSPECIFIED (5) Diabetic autonomic neuropathy associated with diabetes mellitus due to underlying condition Code(s): E08.43 - DIAB DUE TO UNDRL COND W DIABETIC AUTONM (POLY)NEUROPATHY (6) Dehydration Assessment/Plan: BUN/Cr improved. Off pressors. Reduce IV fluids. F/u Is and Os Code(s): E86.0 - DEHYDRATION (7) Elevated LFTs Assessment/Plan: Acute elevation; now decreasing; GI w/u in progress (r/o pancreatic source). Code(s): R94.5 - ABNORMAL RESULTS OF LIVER FUNCTION STUDIES
--- NOTE | 2018-04-28 12:13 | PN ---
Progress Note, Physician History of Present Illness: Pt w/o chills, fever, cough, CP, palpitations, nausea, vomiting, abd pain. - Current Medication List Current Medications: Active Medications Acetaminophen (Tylenol -) 650 mg PO Q8H PRN PRN Reason: FEVER Last Admin: 04/28/18 06:38 Dose: 650 mg Albuterol Sulfate (Ventolin 0.083% Nebulizer Soln -) 1 amp NEB Q4H PRN PRN Reason: SHORT OF BREATH/WHEEZING Albuterol/Ipratropium (Duoneb -) 1 amp NEB RQID [facility] Last Admin: 04/28/18 09:41 Dose: 1 amp Aspirin (Asa -) 81 mg PO DAILY [facility] Last Admin: 04/28/18 10:40 Dose: 81 mg Clopidogrel Bisulfate (Plavix -) 75 mg PO DAILY [facility] Last Admin: 04/28/18 10:40 Dose: 75 mg Dextrose (D50w (Vial) -) 25 gm IVPUSH PRN PRN PRN Reason: Hypoglycemia BGM<70 Ceftriaxone Sodium 2 gm/ (Dextrose) 100 mls @ 200 mls/hr IVPB DAILY [facility]; Protocol Last Admin: 04/28/18 10:39 Dose: 200 mls/hr Sodium Chloride (Normal Saline -) 1,000 mls @ 100 mls/hr IV ASDIR [facility] Last Admin: 04/27/18 22:03 Dose: 100 mls/hr Ibuprofen (Motrin -) 600 mg PO Q8H PRN PRN Reason: PAIN LEVEL 1 - 3 Insulin Aspart (Novolog Vial Sliding Scale -) 1 vial SQ ACHS [facility]; Protocol Last Admin: 04/28/18 06:36 Dose: 2 unit Insulin Detemir (Levemir Vial) 7 units SQ ACBK [facility] Last Admin: 04/28/18 06:37 Dose: 7 units Insulin Detemir (Levemir Vial) 4 units SQ HS [facility] Last Admin: 04/27/18 22:02 Dose: 4 units Magnesium Sulfate (Magnesium Sulfate) 2 gm IVPB ONCE ONE Stop: 04/28/18 12:12 Oseltamivir Phosphate (Tamiflu -) 75 mg PO BID [facility] Stop: 05/02/18 21:59 Last Admin: 04/28/18 10:40 Dose: 75 mg Pantoprazole Sodium (Protonix -) 40 mg PO DAILY [facility] Last Admin: 04/28/18 10:41 Dose: 40 mg Primidone (Mysoline -) 250 mg PO BID [facility] Last Admin: 04/28/18 10:40 Dose: 250 mg Senna (Senna -) 2 tab PO DAILY [facility] Last Admin: 04/28/18 10:40 Dose: 2 tab Silver Sulfadiazine (Silvadene -) 1 applic TP DAILY [facility] - Objective Vital Signs: Vital Signs Temperature 100.7 F H 04/28/18 06:00 Pulse Rate 94 H 04/28/18 06:00 Respiratory Rate 20 04/28/18 06:00 Blood Pressure 147/71 04/28/18 06:00 O2 Sat by Pulse Oximetry (%) 95 04/27/18 21:00 Constitutional: Yes: No Distress, Calm Cardiovascular: Yes: Regular Rate and Rhythm, S1, S2 Respiratory: Yes: Regular, Other (coarse BS bilat) Gastrointestinal: Yes: Normal Bowel Sounds, Soft. No: Tenderness Edema: No Neurological: Yes: Alert, Oriented Labs: CBC, BMP 04/28/18 09:13 04/28/18 09:13 INR, PTT INR 1.26 (0.83-1.09) H 04/22/18 12:00 Problem List - Problems (1) Septic shock Code(s): A41.9 - SEPSIS, UNSPECIFIED ORGANISM; R65.21 - SEVERE SEPSIS WITH SEPTIC SHOCK (2) PNA (pneumonia) Code(s): J18.9 - PNEUMONIA, UNSPECIFIED ORGANISM (3) Influenza A Code(s): J10.1 - FLU DUE TO OTH IDENT INFLUENZA VIRUS W OTH RESP MANIFEST (4) Elevated LFTs Code(s): R94.5 - ABNORMAL RESULTS OF LIVER FUNCTION STUDIES (5) CAD (coronary artery disease) Code(s): I25.10 - ATHSCL HEART DISEASE OF [place] CORONARY ARTERY W/O ANG PCTRS (6) Hx of CABG Code(s): Z95.1 - PRESENCE OF AORTOCORONARY BYPASS GRAFT (7) IDDM (insulin dependent diabetes mellitus) Code(s): E11.9 - TYPE 2 DIABETES MELLITUS WITHOUT COMPLICATIONS; Z79.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 OF 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 (8) Impaired gait Code(s): R26.9 - UNSPECIFIED ABNORMALITIES OF GAIT AND MOBILITY (9) Weakness Code(s): R53.1 - WEAKNESS (10) Humeral head fracture Code(s): S42.293A - OTH DISP FX OF UPPER END OF UNSP HUMERUS, INIT FOR CLOS FX (11) Knee fracture, left Code(s): [id number] - (12) Wound infection complicating hardware Code(s): T84.7XXA - INFECT/INFLM REACT DUE TO OTH INT ORTH PROSTH DEV/GRFT, INIT Qualifiers: Encounter type: initial encounter Qualified Code(s): T84.7XXA - Infection and inflammatory reaction due to other internal orthopedic prosthetic devices, implants and grafts, initial encounter (13) Essential tremor Code(s): G25.0 - ESSENTIAL TREMOR (14) Asthma Code(s): J45.909 - UNSPECIFIED ASTHMA, UNCOMPLICATED (15) COPD (chronic obstructive pulmonary disease) Code(s): J44.9 - CHRONIC OBSTRUCTIVE PULMONARY DISEASE, UNSPECIFIED (16) Anemia Code(s): D64.9 - ANEMIA, UNSPECIFIED (17) Malnutrition Code(s): E46 - UNSPECIFIED PROTEIN-CALORIE MALNUTRITION (18) Hyponatremia Code(s): E87.1 - HYPO-OSMOLALITY AND HYPONATREMIA Assessment/Plan Pt presented with hypotension, failed fluid resuscitation, Central line was placed in ER and pt to be started on Levophed and admitted to ICU. Pt's BP improved; pt came off Levophed; pt was transferred to medical floor CCM, ID, Cardio, GI consults are appreciated. IV abtx Tamiflu LFT's are improving (probable in the setting of sepsis). Pt refused abd MRI Levemir ACBK and HS AM labs. replete electrolytes; to f/u Case was d/w pt's ER nurse. Prognosis: improving.
[2018-04-28] MEDS ORDERED: MAGNESIUM SULF 50% (8.12 MEQ/2 ML-1 GM VIAL) IVPB ONE (12:30)
[2018-04-28] MEDS ORDERED: MAGNESIUM SULF 50% (8.12 MEQ/2 ML-1 GM VIAL) ONE (13:03)
[2018-04-28] MEDS: SODIUM CHLORIDE 1,000 ML IV SCH (13:36)
--- NOTE | 2018-04-28 14:50 | PN ---
Progress Note, Physician History of Present Illness: PULMONARY ALERT,NO DISTRESS,-C/O SOB - Current Medication List Current Medications: Active Medications Acetaminophen (Tylenol -) 650 mg PO Q8H PRN PRN Reason: FEVER Last Admin: 04/28/18 06:38 Dose: 650 mg Albuterol Sulfate (Ventolin 0.083% Nebulizer Soln -) 1 amp NEB Q4H PRN PRN Reason: SHORT OF BREATH/WHEEZING Albuterol/Ipratropium (Duoneb -) 1 amp NEB RQID [facility] Last Admin: 04/28/18 09:41 Dose: 1 amp Aspirin (Asa -) 81 mg PO DAILY [facility] Last Admin: 04/28/18 10:40 Dose: 81 mg Clopidogrel Bisulfate (Plavix -) 75 mg PO DAILY [facility] Last Admin: 04/28/18 10:40 Dose: 75 mg Dextrose (D50w (Vial) -) 25 gm IVPUSH PRN PRN PRN Reason: Hypoglycemia BGM<70 Ceftriaxone Sodium 2 gm/ (Dextrose) 100 mls @ 200 mls/hr IVPB DAILY [facility]; Protocol Last Admin: 04/28/18 10:39 Dose: 200 mls/hr Sodium Chloride (Normal Saline -) 1,000 mls @ 50 mls/hr IV ASDIR [facility] Last Admin: 04/28/18 13:36 Dose: 50 mls/hr Ibuprofen (Motrin -) 600 mg PO Q8H PRN PRN Reason: PAIN LEVEL 1 - 3 Insulin Aspart (Novolog Vial Sliding Scale -) 1 vial SQ ACHS [facility]; Protocol Last Admin: 04/28/18 12:21 Dose: Not Given Insulin Detemir (Levemir Vial) 7 units SQ ACBK [facility] Last Admin: 04/28/18 06:37 Dose: 7 units Insulin Detemir (Levemir Vial) 4 units SQ HS [facility] Last Admin: 04/27/18 22:02 Dose: 4 units Oseltamivir Phosphate (Tamiflu -) 75 mg PO BID [facility] Stop: 05/02/18 21:59 Last Admin: 04/28/18 10:40 Dose: 75 mg Pantoprazole Sodium (Protonix -) 40 mg PO DAILY [facility] Last Admin: 04/28/18 10:41 Dose: 40 mg Primidone (Mysoline -) 250 mg PO BID [facility] Last Admin: 04/28/18 10:40 Dose: 250 mg Senna (Senna -) 2 tab PO DAILY [facility] Last Admin: 04/28/18 10:40 Dose: 2 tab Silver Sulfadiazine (Silvadene -) 1 applic TP DAILY [facility] - Objective Vital Signs: Vital Signs Temperature 98.0 F 04/28/18 14:00 Pulse Rate 92 H 04/28/18 14:00 Respiratory Rate 18 04/28/18 14:00 Blood Pressure 128/53 L 04/28/18 14:00 O2 Sat by Pulse Oximetry (%) 95 04/27/18 21:00 Constitutional: Yes: Calm, Thin Eyes: Yes: WNL HENT: Yes: WNL Neck: Yes: WNL Cardiovascular: Yes: Regular Rate and Rhythm, S1, S2 Respiratory: Yes: Diminished Gastrointestinal: Yes: Normal Bowel Sounds, Soft Extremities: Yes: WNL Edema: No Labs: CBC, BMP 04/28/18 09:13 04/28/18 09:13 INR, PTT INR 1.26 (0.83-1.09) H 04/22/18 12:00 Problem List - Problems (1) Elevated LFTs Code(s): R94.5 - ABNORMAL RESULTS OF LIVER FUNCTION STUDIES (2) History of cancer of vagina Code(s): Z85.44 - PERSONAL HISTORY OF MALIG NEOPLASM OF FEMALE GENITAL ORGANS (3) Hx of CABG Code(s): Z95.1 - PRESENCE OF AORTOCORONARY BYPASS GRAFT (4) Hyponatremia Code(s): E87.1 - HYPO-OSMOLALITY AND HYPONATREMIA (5) Influenza A Code(s): J10.1 - FLU DUE TO OTH IDENT INFLUENZA VIRUS W OTH RESP MANIFEST (6) PNA (pneumonia) Code(s): J18.9 - PNEUMONIA, UNSPECIFIED ORGANISM (7) S/P coronary artery stent placement Code(s): Z95.5 - PRESENCE OF CORONARY ANGIOPLASTY IMPLANT AND GRAFT Assessment/Plan Assessment/Plan Resolved Septic Shock due to Influenza / LLL PNA / R.O decubitus ulcers COPD Essential tremor Transminitis DM ABX per ID IVF Tamiflu to complete 5 days PO as tolerated O2 as needed Plavix / ASA BD [place] PRN DR RICK
[2018-04-28] MEDS ORDERED: INSULIN (NOVOLOG) ASPART 100 UNITS/ML 10ML VIAL ONE (16:52)
[2018-04-29] MEDS: INSULIN SLIDING SCALE (NOVOLOG) 1 VIAL SQ SCH ×4 (06:28→21:17)
[2018-04-29] MEDS: INSULIN (LEVEMIR) 100 UNITS/ML UNITS SQ SCH ×2 (06:28→21:17)
[2018-04-29] MEDS: ALBUTEROL SO4 2.5/IPRATROPIUM 0.5 INH SOL 3 ML VIAL.NEB. NEB SCH ×4 (08:10→20:15)
[2018-04-29] MEDS ORDERED: DEXTROSE 5%-WATER 100 ML IVPB ONE (09:46)
[2018-04-29 10:03] LABS: ALBUMIN 1.8 g/dl (3.4-5.0); ALK PHOS 245 U/L (45-117); ANION GAP 5 MMOL/L (8-16); BILIRUBIN,DIRECT 0.1 mg/dL (0.0-0.2); BILIRUBIN,TOTAL 0.1 mg/dL (0.2-1); BLOOD UREA NITROGEN 6 mg/dL (7-18); CALCIUM 7.6 mg/dL (8.5-10.1); CHLORIDE 107 mmol/L (98-107); CO2 27 mmol/L (21-32); CREATININE 0.3 mg/dL (0.55-1.3); GLUCOSE,RANDOM 180 mg/dL (74-106); MAGNESIUM 2.1 mg/dL (1.8-2.4); PHOSPHOROUS 3.2 mg/dL (2.5-4.9); POTASSIUM 4.8 mmol/L (3.5-5.1); SGOT/AST 32 U/L (15-37); SGPT/ALT 71 U/L (13-61); SODIUM 139 mmol/L (136-145)
--- NOTE | 2018-04-29 11:11 | PN ---
Progress Note (short form) - Note Progress Note: PULMONARY Denies shortness of breath, cough or fevers. Vital Signs Period Temp Pulse Resp BP Sys/Chen Pulse Ox Last 24 Hr 97.6 F-98.6 F 81-92 17-18 128-156/53-73 96 Gen: NAD at rest, resting tremor Heart: RRR Lung: decreased breath sounds at the bases Abd: soft, nontender Ext: no edema CBC, BMP 04/28/18 09:13 04/29/18 09:22 Active Medications Acetaminophen (Tylenol -) 650 mg PO Q8H PRN PRN Reason: FEVER Last Admin: 04/28/18 06:38 Dose: 650 mg Albuterol Sulfate (Ventolin 0.083% Nebulizer Soln -) 1 amp NEB Q4H PRN PRN Reason: SHORT OF BREATH/WHEEZING Albuterol/Ipratropium (Duoneb -) 1 amp NEB RQID [facility] Last Admin: 04/29/18 08:10 Dose: 1 amp Aspirin (Asa -) 81 mg PO DAILY [facility] Last Admin: 04/28/18 10:40 Dose: 81 mg Clopidogrel Bisulfate (Plavix -) 75 mg PO DAILY [facility] Last Admin: 04/28/18 10:40 Dose: 75 mg Dextrose (D50w (Vial) -) 25 gm IVPUSH PRN PRN PRN Reason: Hypoglycemia BGM<70 Ceftriaxone Sodium 2 gm/ (Dextrose) 100 mls @ 200 mls/hr IVPB DAILY [facility]; Protocol Last Admin: 04/28/18 10:39 Dose: 200 mls/hr Sodium Chloride (Normal Saline -) 1,000 mls @ 50 mls/hr IV ASDIR [facility] Last Admin: 04/28/18 13:36 Dose: 50 mls/hr Ibuprofen (Motrin -) 600 mg PO Q8H PRN PRN Reason: PAIN LEVEL 1 - 3 Last Admin: 04/28/18 21:51 Dose: 600 mg Insulin Aspart (Novolog Vial Sliding Scale -) 1 vial SQ ACHS [facility]; Protocol Last Admin: 04/29/18 06:28 Dose: Not Given Insulin Detemir (Levemir Vial) 7 units SQ ACBK [facility] Last Admin: 04/29/18 06:28 Dose: Not Given Insulin Detemir (Levemir Vial) 4 units SQ HS [facility] Last Admin: 04/28/18 21:32 Dose: 4 units Pantoprazole Sodium (Protonix -) 40 mg PO DAILY [facility] Last Admin: 04/28/18 10:41 Dose: 40 mg Primidone (Mysoline -) 250 mg PO BID [facility] Last Admin: 04/28/18 21:27 Dose: 250 mg Senna (Senna -) 2 tab PO DAILY [facility] Last Admin: 04/28/18 10:40 Dose: 2 tab Silver Sulfadiazine (Silvadene -) 1 applic TP DAILY [facility] Last Admin: 04/28/18 10:48 Dose: 1 appful A/P Pneumonia Influenza A Septic Shock resolved COPD DM Decubitus Ulcer Essential Tremor - complete antibiotics - completed tamiflu - O2 as needed - inhaled bronchodilators as needed - DVT prophylaxis
[2018-04-29] MEDS: PANTOPRAZOLE 40 MG TABLET (FP) PO SCH (11:13)
[2018-04-29] MEDS: CLOPIDOGREL BISULFATE 75 MG TABLET (FP) PO SCH (11:13)
[2018-04-29] MEDS: SENNOSIDES 8.6MG TABLET (FP) PO SCH (11:13)
[2018-04-29] MEDS: ASPIRIN 81 MG CHEWABLE TABLETS PO SCH (11:13)
[2018-04-29] MEDS: PRIMIDONE 250 MG TABLET PO SCH ×2 (11:13→21:18)
[2018-04-29] MEDS: CEFTRIAXONE 2 GM in DEXTROSE 5%-WATER 100 ML IVPB SCH (11:14)
[2018-04-29] MEDS: SODIUM CHLORIDE 1,000 ML IV SCH (11:18)
[2018-04-29 11:21] LABS: TRANSGLUTAMINASE IGA < 2 U/mL (0-3); TRANSGLUTAMINASE IGG < 2 U/mL (0-5)
[2018-04-29] MEDS: SILVER SULFADIAZINE 1% TOP CREAM 50 GM JAR TP SCH (11:26)
[2018-04-29] MEDS ORDERED: INSULIN (NOVOLOG) ASPART 100 UNITS/ML 10ML VIAL ONE ×2 (11:28→17:13)
--- NOTE | 2018-04-29 14:47 | PN ---
Progress Note, Physician History of Present Illness: Pt w/o chills, fever, cough, CP, palpitations, nausea, vomiting, abd pain. - Current Medication List Current Medications: Active Medications Acetaminophen (Tylenol -) 650 mg PO Q8H PRN PRN Reason: FEVER Last Admin: 04/28/18 06:38 Dose: 650 mg Albuterol Sulfate (Ventolin 0.083% Nebulizer Soln -) 1 amp NEB Q4H PRN PRN Reason: SHORT OF BREATH/WHEEZING Albuterol/Ipratropium (Duoneb -) 1 amp NEB RQID [facility] Last Admin: 04/29/18 11:35 Dose: 1 amp Aspirin (Asa -) 81 mg PO DAILY [facility] Last Admin: 04/29/18 11:13 Dose: 81 mg Clopidogrel Bisulfate (Plavix -) 75 mg PO DAILY [facility] Last Admin: 04/29/18 11:13 Dose: 75 mg Dextrose (D50w (Vial) -) 25 gm IVPUSH PRN PRN PRN Reason: Hypoglycemia BGM<70 Ceftriaxone Sodium 2 gm/ (Dextrose) 100 mls @ 200 mls/hr IVPB DAILY [facility]; Protocol Last Admin: 04/29/18 11:14 Dose: Not Given Sodium Chloride (Normal Saline -) 1,000 mls @ 50 mls/hr IV ASDIR [facility] Last Admin: 04/29/18 11:18 Dose: 50 mls/hr Ibuprofen (Motrin -) 600 mg PO Q8H PRN PRN Reason: PAIN LEVEL 1 - 3 Last Admin: 04/28/18 21:51 Dose: 600 mg Insulin Aspart (Novolog Vial Sliding Scale -) 1 vial SQ ACHS [facility]; Protocol Last Admin: 04/29/18 11:37 Dose: 4 unit Insulin Detemir (Levemir Vial) 7 units SQ ACBK [facility] Last Admin: 04/29/18 06:28 Dose: Not Given Insulin Detemir (Levemir Vial) 4 units SQ HS [facility] Last Admin: 04/28/18 21:32 Dose: 4 units Pantoprazole Sodium (Protonix -) 40 mg PO DAILY [facility] Last Admin: 04/29/18 11:13 Dose: Not Given Primidone (Mysoline -) 250 mg PO BID [facility] Last Admin: 04/29/18 11:13 Dose: 250 mg Senna (Senna -) 2 tab PO DAILY [facility] Last Admin: 02/14/19 11:13 Dose: Not Given Silver Sulfadiazine (Silvadene -) 1 applic TP DAILY [facility] Last Admin: 04/29/18 11:26 Dose: 1 appful - Objective Vital Signs: Vital Signs Temperature 97.7 F 04/29/18 10:00 Pulse Rate 92 H 04/29/18 10:00 Respiratory Rate 18 04/29/18 10:00 Blood Pressure 139/68 04/29/18 10:00 O2 Sat by Pulse Oximetry (%) 96 04/29/18 09:00 Constitutional: Yes: No Distress, Calm Cardiovascular: Yes: Regular Rate and Rhythm, S1, S2 Respiratory: Yes: Regular, Rhonchi (minimal, scattered) Gastrointestinal: Yes: Normal Bowel Sounds, Soft. No: Tenderness Edema: No Neurological: Yes: Alert, Oriented Labs: CBC, BMP 04/28/18 09:13 04/29/18 09:22 INR, PTT INR 1.26 (0.83-1.09) H 04/22/18 12:00 Problem List - Problems (1) Septic shock Code(s): A41.9 - SEPSIS, UNSPECIFIED ORGANISM; R65.21 - SEVERE SEPSIS WITH SEPTIC SHOCK (2) PNA (pneumonia) Code(s): J18.9 - PNEUMONIA, UNSPECIFIED ORGANISM (3) Influenza A Code(s): J10.1 - FLU DUE TO OTH IDENT INFLUENZA VIRUS W OTH RESP MANIFEST (4) Elevated LFTs Code(s): R94.5 - ABNORMAL RESULTS OF LIVER FUNCTION STUDIES (5) CAD (coronary artery disease) Code(s): I25.10 - ATHSCL HEART DISEASE OF [place] CORONARY ARTERY W/O ANG PCTRS (6) Hx of CABG Code(s): Z95.1 - PRESENCE OF AORTOCORONARY BYPASS GRAFT (7) IDDM (insulin dependent diabetes mellitus) Code(s): E11.9 - TYPE 2 DIABETES MELLITUS WITHOUT COMPLICATIONS; Z79.4 - 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 HAND (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 OF INSULIN (8) Impaired gait Code(s): R26.9 - UNSPECIFIED ABNORMALITIES OF GAIT AND MOBILITY (9) Weakness Code(s): R53.1 - WEAKNESS (10) Humeral head fracture Code(s): S42.293A - OTH DISP FX OF UPPER END OF UNSP HUMERUS, INIT FOR CLOS FX (11) Knee fracture, left Code(s): [id number] - (12) Wound infection complicating hardware Code(s): T84.7XXA - INFECT/INFLM REACT DUE TO OTH INT ORTH PROSTH DEV/GRFT, INIT Qualifiers: Encounter type: initial encounter Qualified Code(s): T84.7XXA - Infection and inflammatory reaction due to other internal orthopedic prosthetic devices, implants and grafts, initial encounter (13) Essential tremor Code(s): G25.0 - ESSENTIAL TREMOR (14) Asthma Code(s): J45.909 - UNSPECIFIED ASTHMA, UNCOMPLICATED (15) COPD (chronic obstructive pulmonary disease) Code(s): J44.9 - CHRONIC OBSTRUCTIVE PULMONARY DISEASE, UNSPECIFIED (16) Anemia Code(s): D64.9 - ANEMIA, UNSPECIFIED (17) Malnutrition Code(s): E46 - UNSPECIFIED PROTEIN-CALORIE MALNUTRITION (18) Hyponatremia Code(s): E87.1 - HYPO-OSMOLALITY AND HYPONATREMIA Assessment/Plan Pt presented with hypotension, failed fluid resuscitation, Central line was placed in ER and pt to be started on Levophed and admitted to ICU. Pt's BP improved; pt came off Levophed; pt was transferred to medical floor CCM, ID, Cardio, GI consults are appreciated. IV abtx Pt finished Tamiflu LFT's are improving (probable in the setting of sepsis). Pt refused abd MRI Levemir ACBK and HS AM labs. PT eval for safe DC home (pt states that would sign out AMA today or tomorrow). Case was d/w pt's ER nurse. Prognosis: improving.
--- NOTE | 2018-04-29 16:17 | PN ---
Progress Note, Physician History of Present Illness: AWAKE, ALERT TEMPS DOWN AFEBRILE NO COMPLAINTS + TREMOR DENIES CHEST PAIN/ DYSPNEA/ COUGH BC (-) LEGIONELLA/ PNEUMOCOCCAL AG (-) SPUTUM GRP F STREP, YLO LFTS IMPROVED - Current Medication List Current Medications: Active Medications Acetaminophen (Tylenol -) 650 mg PO Q8H PRN PRN Reason: FEVER Last Admin: 04/28/18 06:38 Dose: 650 mg Albuterol Sulfate (Ventolin 0.083% Nebulizer Soln -) 1 amp NEB Q4H PRN PRN Reason: SHORT OF BREATH/WHEEZING Albuterol/Ipratropium (Duoneb -) 1 amp NEB RQID [facility] Last Admin: 04/29/18 15:35 Dose: 1 amp Aspirin (Asa -) 81 mg PO DAILY [facility] Last Admin: 04/29/18 11:13 Dose: 81 mg Clopidogrel Bisulfate (Plavix -) 75 mg PO DAILY [facility] Last Admin: 04/29/18 11:13 Dose: 75 mg Dextrose (D50w (Vial) -) 25 gm IVPUSH PRN PRN PRN Reason: Hypoglycemia BGM<70 Ceftriaxone Sodium 2 gm/ (Dextrose) 100 mls @ 200 mls/hr IVPB DAILY [facility]; Protocol Last Admin: 04/29/18 11:14 Dose: Not Given Ibuprofen (Motrin -) 600 mg PO Q8H PRN PRN Reason: PAIN LEVEL 1 - 3 Last Admin: 04/28/18 21:51 Dose: 600 mg Insulin Aspart (Novolog Vial Sliding Scale -) 1 vial SQ ACHS [facility]; Protocol Last Admin: 04/29/18 11:37 Dose: 4 unit Insulin Detemir (Levemir Vial) 7 units SQ ACBK [facility] Last Admin: 04/29/18 06:28 Dose: Not Given Insulin Detemir (Levemir Vial) 4 units SQ HS [facility] Last Admin: 04/28/18 21:32 Dose: 4 units Pantoprazole Sodium (Protonix -) 40 mg PO DAILY [facility] Last Admin: 04/29/18 11:13 Dose: Not Given Primidone (Mysoline -) 250 mg PO BID [facility] Last Admin: 04/29/18 11:13 Dose: 250 mg Senna (Senna -) 2 tab PO DAILY [facility] Last Admin: 04/29/18 11:13 Dose: Not Given Silver Sulfadiazine (Silvadene -) 1 applic TP DAILY [facility] Last Admin: 04/29/18 11:26 Dose: 1 appful - Objective Vital Signs: Vital Signs Temperature 97.7 F 04/29/18 10:00 Pulse Rate 92 H 04/29/18 10:00 Respiratory Rate 18 04/29/18 10:00 Blood Pressure 139/68 04/29/18 10:00 O2 Sat by Pulse Oximetry (%) 96 04/29/18 09:00 Constitutional: Yes: No Distress Eyes: Yes: Conjunctiva Clear Cardiovascular: Yes: Regular Rate and Rhythm, S1, S2 Respiratory: Yes: CTA Bilaterally Gastrointestinal: Yes: Normal Bowel Sounds, Soft. No: Tenderness Edema: No Labs: CBC, BMP 04/28/18 09:13 04/29/18 09:22 INR, PTT INR 1.26 (0.83-1.09) H 04/22/18 12:00 Assessment/Plan ACUTE INFLUENZA A ? PNEUMONIA (HCAP) SEPSIS/ SEPTIC SHOCK ELEVATED LFTS IMPROVED OFF PRESSORS COMPLETED TAMIFLU CONTINUE CEFTRIAXONE
[2018-04-29] MEDS: ACETAMINOPHEN 325 MG TABLET (FP) PO PRN (18:39)
[2018-04-29] MEDS ORDERED: PT OWN MED DRAWER 7, Y5N ONE (21:03)
[2018-04-30] MEDS: INSULIN SLIDING SCALE (NOVOLOG) 1 VIAL SQ SCH ×4 (06:31→21:52)
[2018-04-30] MEDS: INSULIN (LEVEMIR) 100 UNITS/ML UNITS SQ SCH ×2 (06:34→21:52)
[2018-04-30 07:40] LABS: HEMATOCRIT 28.7 % (32.4-45.2); HEMOGLOBIN 9.8 GM/dL (10.7-15.3); MCH 35.5 pg (25.7-33.7); MCHC 34.1 g/dl (32.0-36.0); MEAN PLT VOLUME 7.2 fl (7.5-11.1); PLATELET COUNT 595 K/MM3 (134-434); RBC 2.76 M/mm3 (3.60-5.2); RDW 12.8 % (11.6-15.6); WHITE BLOOD COUNT 5.5 K/mm3 (4.0-10.0)
[2018-04-30] MEDS: ALBUTEROL SO4 2.5/IPRATROPIUM 0.5 INH SOL 3 ML VIAL.NEB. NEB SCH ×4 (08:00→20:21)
[2018-04-30 08:31] LABS: ALK PHOS 270 U/L (45-117); ANION GAP 6 MMOL/L (8-16); BILIRUBIN,TOTAL < 0.1 mg/dL (0.2-1); BLOOD UREA NITROGEN 9 mg/dL (7-18); CALCIUM 8.2 mg/dL (8.5-10.1); CHLORIDE 105 mmol/L (98-107); CO2 25 mmol/L (21-32); CREATININE 0.3 mg/dL (0.55-1.3); GLUCOSE,RANDOM 75 mg/dL (74-106); POTASSIUM 4.9 mmol/L (3.5-5.1); SGOT/AST 26 U/L (15-37); SGPT/ALT 65 U/L (13-61); SODIUM 137 mmol/L (136-145); TOT PROT 5.6 g/dl (6.4-8.2)
[2018-04-30] MEDS ORDERED: DEXTROSE 5%-WATER 100 ML IVPB ONE (09:11)
[2018-04-30] MEDS: ASPIRIN 81 MG CHEWABLE TABLETS PO SCH (09:50)
[2018-04-30] MEDS: CLOPIDOGREL BISULFATE 75 MG TABLET (FP) PO SCH (09:50)
[2018-04-30] MEDS: PANTOPRAZOLE 40 MG TABLET (FP) PO SCH (09:50)
[2018-04-30] MEDS: SENNOSIDES 8.6MG TABLET (FP) PO SCH (09:50)
[2018-04-30] MEDS: PRIMIDONE 250 MG TABLET PO SCH ×2 (10:10→21:53)
--- NOTE | 2018-04-30 10:47 | PN ---
Progress Note, Physician History of Present Illness: Pt w/o chills, fever, CP, palpitations, nausea, vomiting, abd pain. Pt coughs occasionally, no sputum. Pt has shoes to walk better.[email or web address] Pt's dg (in wheelchair) is at bed side; I asked her if can help her mother to stand up, walk and says that cannot. - Current Medication List Current Medications: Active Medications Acetaminophen (Tylenol -) 650 mg PO Q8H PRN PRN Reason: FEVER Last Admin: 04/29/18 18:39 Dose: 650 mg Albuterol Sulfate (Ventolin 0.083% Nebulizer Soln -) 1 amp NEB Q4H PRN PRN Reason: SHORT OF BREATH/WHEEZING Albuterol/Ipratropium (Duoneb -) 1 amp NEB RQID [facility] Last Admin: 04/30/18 08:00 Dose: 1 amp Aspirin (Asa -) 81 mg PO DAILY [facility] Last Admin: 04/30/18 09:50 Dose: 81 mg Clopidogrel Bisulfate (Plavix -) 75 mg PO DAILY [facility] Last Admin: 04/30/18 09:50 Dose: 75 mg Dextrose (D50w (Vial) -) 25 gm IVPUSH PRN PRN PRN Reason: Hypoglycemia BGM<70 Ceftriaxone Sodium 2 gm/ (Dextrose) 100 mls @ 200 mls/hr IVPB DAILY [facility]; Protocol Last Admin: 04/29/18 11:14 Dose: Not Given Ibuprofen (Motrin -) 600 mg PO Q8H PRN PRN Reason: PAIN LEVEL 1 - 3 Last Admin: 04/28/18 21:51 Dose: 600 mg Insulin Aspart (Novolog Vial Sliding Scale -) 1 vial SQ ACHS [facility]; Protocol Last Admin: 04/30/18 06:31 Dose: Not Given Insulin Detemir (Levemir Vial) 7 units SQ ACBK [facility] Last Admin: 04/30/18 06:34 Dose: 7 units Insulin Detemir (Levemir Vial) 4 units SQ HS [facility] Last Admin: 04/29/18 21:17 Dose: 4 units Pantoprazole Sodium (Protonix -) 40 mg PO DAILY [facility] Last Admin: 04/30/18 09:50 Dose: 40 mg Primidone (Mysoline -) 250 mg PO BID [facility] Last Admin: 04/29/18 21:18 Dose: 250 mg Senna (Senna -) 2 tab PO DAILY [facility] Last Admin: 04/30/18 09:50 Dose: Not Given Silver Sulfadiazine (Silvadene -) 1 applic TP DAILY [facility] Last Admin: 04/29/18 11:26 Dose: 1 appful - Objective Vital Signs: Vital Signs Temperature 98.1 F 04/30/18 09:00 Pulse Rate 95 H 04/30/18 09:00 Respiratory Rate 19 04/30/18 09:00 Blood Pressure 136/72 04/30/18 09:00 O2 Sat by Pulse Oximetry (%) 95 04/30/18 09:00 Constitutional: Yes: No Distress, Calm Cardiovascular: Yes: Regular Rate and Rhythm, S1, S2 Respiratory: Yes: Regular, CTA Bilaterally Gastrointestinal: Yes: Normal Bowel Sounds, Soft. No: Tenderness Edema: No Neurological: Yes: Alert, Oriented Labs: CBC, BMP 04/30/18 07:00 04/30/18 07:00 INR, PTT INR 1.26 (0.83-1.09) H 04/22/18 12:00 Problem List - Problems (1) Septic shock Code(s): A41.9 - SEPSIS, UNSPECIFIED ORGANISM; R65.21 - SEVERE SEPSIS WITH SEPTIC SHOCK (2) PNA (pneumonia) Code(s): J18.9 - PNEUMONIA, UNSPECIFIED ORGANISM (3) Influenza A Code(s): J10.1 - FLU DUE TO OTH IDENT INFLUENZA VIRUS W OTH RESP MANIFEST (4) Elevated LFTs Code(s): R94.5 - ABNORMAL RESULTS OF LIVER FUNCTION STUDIES (5) CAD (coronary artery disease) Code(s): I25.10 - ATHSCL HEART DISEASE OF [place] CORONARY ARTERY W/O ANG PCTRS (6) Hx of CABG Code(s): Z95.1 - PRESENCE OF AORTOCORONARY BYPASS GRAFT (7) IDDM (insulin dependent diabetes mellitus) Code(s): E11.9 - TYPE 2 DIABETES MELLITUS WITHOUT COMPLICATIONS; Z79.4 - NURSING HOME (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 OF INSULIN (8) Impaired gait Code(s): R26.9 - UNSPECIFIED ABNORMALITIES OF GAIT AND MOBILITY (9) Weakness Code(s): R53.1 - WEAKNESS (10) Humeral head fracture Code(s): S42.293A - OTH DISP FX OF UPPER END OF UNSP HUMERUS, INIT FOR CLOS FX (11) Knee fracture, left Code(s): BLM3120 - (12) Wound infection complicating hardware Code(s): T84.7XXA - INFECT/INFLM REACT DUE TO OTH INT ORTH PROSTH DEV/GRFT, INIT Qualifiers: Encounter type: initial encounter Qualified Code(s): T84.7XXA - Infection and inflammatory reaction due to other internal orthopedic prosthetic devices, implants and grafts, initial encounter (13) Essential tremor Code(s): G25.0 - ESSENTIAL TREMOR (14) Asthma Code(s): J45.909 - UNSPECIFIED ASTHMA, UNCOMPLICATED (15) COPD (chronic obstructive pulmonary disease) Code(s): J44.9 - CHRONIC OBSTRUCTIVE PULMONARY DISEASE, UNSPECIFIED (16) Anemia Code(s): D64.9 - ANEMIA, UNSPECIFIED (17) Malnutrition Code(s): E46 - UNSPECIFIED PROTEIN-CALORIE MALNUTRITION (18) Hyponatremia Code(s): E87.1 - HYPO-OSMOLALITY AND HYPONATREMIA (19) Impaired gait Code(s): R26.9 - UNSPECIFIED ABNORMALITIES OF GAIT AND MOBILITY Assessment/Plan Pt presented with hypotension, failed fluid resuscitation, Central line was placed in ER and pt to be started on Levophed and admitted to ICU. Pt's BP improved; pt came off Levophed; pt was transferred to medical floor CCM, ID, Cardio, GI consults are appreciated. IV abtx Pt finished Tamiflu LFT's are improving (probable in the setting of sepsis). Pt refused abd MRI Levemir ACBK and HS AM labs. PT evaluated pt today (with shoes) and pt cannot stand up without assist on two ; pt needs Rehab; this was d/w pt's nurse and I asked her to call SW for Rehab placement. Pt is aware of my recommendation.
[2018-04-30] MEDS: SILVER SULFADIAZINE 1% TOP CREAM 50 GM JAR TP SCH (10:55)
[2018-04-30] MEDS: ACETAMINOPHEN 325 MG TABLET (FP) PO PRN ×2 (11:37→21:57)
[2018-04-30] MEDS ORDERED: INSULIN (NOVOLOG) ASPART 100 UNITS/ML 10ML VIAL ONE ×2 (11:41→21:42)
--- NOTE | 2018-04-30 12:11 | DS ---
Physical Examination Vital Signs: Vital Signs Temperature 98.1 F 04/30/18 09:00 Pulse Rate 95 H 04/30/18 09:00 Respiratory Rate 19 04/30/18 09:00 Blood Pressure 136/72 04/30/18 09:00 O2 Sat by Pulse Oximetry (%) 95 04/30/18 09:00 Findings/Remarks: See Progress note for ROS, PE, assessment. Labs: CBC, BMP 04/30/18 07:00 04/30/18 07:00 Discharge Summary Reason For Visit: SEPSIS Current Active Problems Cystic mass of pancreas (Acute) Elevated LFTs (Acute) History of cancer of vagina (Acute) Hx of CABG (Acute) Hyponatremia (Acute) Impaired gait (Acute) Impaired gait (Acute) Influenza A (Acute) PNA (pneumonia) (Acute) S/P coronary artery stent placement (Acute) Tubular adenoma of colon (Acute) Procedures: Principal: Head CT scan. Hip/Pelvis, Shoulder XR. CXR Hospital Course: Pt came to ER by EMS after fall at home. In ER she was found to be hypotensive, in septic Shock, required Levophed drip and admission to ICU; pt received Tamiflu, IV Unasyn and Vanco. Pt also with elevated LFTs, allegra-pancreatic fluid collection. Pt was seen by CCM/ Pulmonary (Dr. Licea/ Becky), ID (Dr. Rodriguez), Cardiology( Blanche), GI (Dr. Graff). Pt recovered slowly, finished Tamiflu, abtx was changed, LFT's improved. Pt refused abdominal MRI for further evalauation of allegra-pancreatic fluid. Condition: Improved - Instructions Diet, Activity, Other Instructions: ADA, Low salt Disposition: CARE HOME FACILITY - Home Medications Comprehensive Discharge Medication List: Ambulatory Orders See DC instructions
--- NOTE | 2018-04-30 14:33 | PN ---
Progress Note, Physician History of Present Illness: AWAKE, ALERT TEMPS DOWN AFEBRILE NO COMPLAINTS DENIES CHEST PAIN/ DYSPNEA/ COUGH BC (-) LEGIONELLA/ PNEUMOCOCCAL AG (-) SPUTUM GRP F STREP, YLO - Current Medication List Current Medications: Active Medications Acetaminophen (Tylenol -) 650 mg PO Q8H PRN PRN Reason: FEVER Last Admin: 04/30/18 11:37 Dose: 650 mg Albuterol Sulfate (Ventolin 0.083% Nebulizer Soln -) 1 amp NEB Q4H PRN PRN Reason: SHORT OF BREATH/WHEEZING Albuterol/Ipratropium (Duoneb -) 1 amp NEB RQID [facility] Last Admin: 04/30/18 08:00 Dose: 1 amp Aspirin (Asa -) 81 mg PO DAILY [facility] Last Admin: 04/30/18 09:50 Dose: 81 mg Clopidogrel Bisulfate (Plavix -) 75 mg PO DAILY [facility] Last Admin: 04/30/18 09:50 Dose: 75 mg Dextrose (D50w (Vial) -) 25 gm IVPUSH PRN PRN PRN Reason: Hypoglycemia BGM<70 Ceftriaxone Sodium 2 gm/ (Dextrose) 100 mls @ 200 mls/hr IVPB DAILY [facility]; Protocol Last Admin: 04/29/18 11:14 Dose: Not Given Ibuprofen (Motrin -) 600 mg PO Q8H PRN PRN Reason: PAIN LEVEL 1 - 3 Last Admin: 04/28/18 21:51 Dose: 600 mg Insulin Aspart (Novolog Vial Sliding Scale -) 1 vial SQ ACHS [facility]; Protocol Last Admin: 04/30/18 06:31 Dose: Not Given Insulin Detemir (Levemir Vial) 7 units SQ ACBK [facility] Last Admin: 04/30/18 06:34 Dose: 7 units Insulin Detemir (Levemir Vial) 4 units SQ HS [facility] Last Admin: 04/29/18 21:17 Dose: 4 units Pantoprazole Sodium (Protonix -) 40 mg PO DAILY [facility] Last Admin: 04/30/18 09:50 Dose: 40 mg Primidone (Mysoline -) 250 mg PO BID [facility] Last Admin: 04/29/18 21:18 Dose: 250 mg Senna (Senna -) 2 tab PO DAILY [facility] Last Admin: 04/30/18 09:50 Dose: Not Given Silver Sulfadiazine (Silvadene -) 1 applic TP DAILY [facility] Last Admin: 04/29/18 11:26 Dose: 1 appful - Objective Vital Signs: Vital Signs Temperature 98.4 F 04/30/18 13:34 Pulse Rate 91 H 04/30/18 13:34 Respiratory Rate 20 04/30/18 13:34 Blood Pressure 117/55 L 04/30/18 13:34 O2 Sat by Pulse Oximetry (%) 95 04/30/18 09:00 Constitutional: Yes: No Distress Eyes: Yes: Conjunctiva Clear Cardiovascular: Yes: Regular Rate and Rhythm, S1, S2 Respiratory: Yes: Diminished Gastrointestinal: Yes: Normal Bowel Sounds, Soft. No: Tenderness Edema: No Labs: CBC, BMP 04/30/18 07:00 04/30/18 07:00 INR, PTT INR 1.26 (0.83-1.09) H 04/22/18 12:00 Assessment/Plan ACUTE INFLUENZA A ? PNEUMONIA (HCAP) SEPSIS/ SEPTIC SHOCK ELEVATED LFTS COMPLETED TAMIFLU SUBSTITUTE CEFTIN 500MG PO BID X 3D
[2018-04-30] MEDS ORDERED: PT OWN MED DRAWER 7, Y5N ONE ×2 (14:54→21:43)
[2018-04-30] MEDS: CEFTRIAXONE 2 GM in DEXTROSE 5%-WATER 100 ML IVPB SCH (17:04)
[2018-04-30] MEDS: CEFUROXIME AXETIL 500 MG TABLET PO SCH (21:52)
[2018-05-01] MEDS: INSULIN SLIDING SCALE (NOVOLOG) 1 VIAL SQ SCH ×4 (06:22→21:36)
[2018-05-01] MEDS: INSULIN (LEVEMIR) 100 UNITS/ML UNITS SQ SCH ×2 (06:22→21:35)
[2018-05-01] MEDS ORDERED: INSULIN (NOVOLOG) ASPART 100 UNITS/ML 10ML VIAL ONE ×2 (06:31→10:52)
[2018-05-01] MEDS: ALBUTEROL SO4 2.5/IPRATROPIUM 0.5 INH SOL 3 ML VIAL.NEB. NEB SCH ×4 (08:45→20:45)
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
--- NOTE | 2018-05-01 09:12 | PN ---
Progress Note, Physician Chief Complaint: Pt A&Ox3; weak, but no other complaints. History of Present Illness: The patient is a 58 year old white woman with a significant past medical history of IDDM, left tib/fib fracture s/p ORIF 2015, prior admission for DKA - sent to surgeon at [facility] where bone scan displayed left knee septic arthritis, resulting in removal of hardware; CAD-->coronary stents in ?2004, COPD, anxiety, tremors, who presents to the emergency department today complaining of a fall one day ago. The patient states she slipped in the bathtub a day ago and was there until her home supervisor came and found her there. She denies LOC. She reports pain to her left shoulder and that she hit her right side of her head, where there is now dry blood. The patient also explains that she has had a productive cough well before the fall. - Current Medication List Current Medications: Active Medications Acetaminophen (Tylenol -) 650 mg PO Q8H PRN PRN Reason: FEVER Last Admin: 04/30/18 21:57 Dose: 650 mg Albuterol Sulfate (Ventolin 0.083% Nebulizer Soln -) 1 amp NEB Q4H PRN PRN Reason: SHORT OF BREATH/WHEEZING Albuterol/Ipratropium (Duoneb -) 1 amp NEB RQID [facility] Last Admin: 05/01/18 08:45 Dose: 1 amp Aspirin (Asa -) 81 mg PO DAILY [facility] Last Admin: 04/30/18 09:50 Dose: 81 mg Cefuroxime Axetil (Ceftin -) 500 mg PO BID [facility] Last Admin: 04/30/18 21:52 Dose: 500 mg Clopidogrel Bisulfate (Plavix -) 75 mg PO DAILY [facility] Last Admin: 04/30/18 09:50 Dose: 75 mg Dextrose (D50w (Vial) -) 25 gm IVPUSH PRN PRN PRN Reason: Hypoglycemia BGM<70 Ibuprofen (Motrin -) 600 mg PO Q8H PRN PRN Reason: PAIN LEVEL 1 - 3 Last Admin: 04/28/18 21:51 Dose: 600 mg Insulin Aspart (Novolog Vial Sliding Scale -) 1 vial SQ ACHS [facility]; Protocol Last Admin: 05/01/18 06:22 Dose: 4 unit Insulin Detemir (Levemir Vial) 7 units SQ ACBK [facility] Last Admin: 05/01/18 06:22 Dose: 7 units Insulin Detemir (Levemir Vial) 4 units SQ HS [facility] Last Admin: 04/30/18 21:52 Dose: 4 units Pantoprazole Sodium (Protonix -) 40 mg PO DAILY [facility] Last Admin: 04/30/18 09:50 Dose: 40 mg Primidone (Mysoline -) 250 mg PO BID [facility] Last Admin: 04/30/18 21:53 Dose: 250 mg Senna (Senna -) 2 tab PO DAILY [facility] Last Admin: 04/30/18 09:50 Dose: Not Given Silver Sulfadiazine (Silvadene -) 1 applic TP DAILY [facility] Last Admin: 04/30/18 10:55 Dose: 1 appful - Objective Vital Signs: Vital Signs Temperature 98.1 F 05/01/18 08:17 Pulse Rate 86 05/01/18 08:17 Respiratory Rate 20 05/01/18 08:17 Blood Pressure 129/66 05/01/18 08:17 O2 Sat by Pulse Oximetry (%) 98 05/01/18 08:57 Constitutional: Yes: Calm, Cachectic Eyes: Yes: WNL HENT: Yes: WNL Neck: Yes: WNL Cardiovascular: Yes: Regular Rate and Rhythm, S1, S2 Respiratory: Yes: Regular Gastrointestinal: Yes: Soft ...Rectal Exam: Yes: Deferred Genitourinary: Yes: Anuria Breast(s): Yes: WNL Musculoskeletal: Yes: Muscle Weakness Extremities: Yes: Cool Edema: No Peripheral Pulses WNL: No Peripheral Pulses: Left Doralis Pedis: 1+, Right Dorsalis Pedis: 1+ Integumentary: Yes: WNL Neurological: Yes: Alert, Oriented, Weakness Psychiatric: Yes: Alert, Oriented Labs: CBC, BMP 04/30/18 07:00 04/30/18 07:00 INR, PTT INR 1.26 (0.83-1.09) H 04/22/18 12:00 Problem List - Problems (1) S/P coronary artery stent placement Code(s): Z95.5 - PRESENCE OF CORONARY ANGIOPLASTY IMPLANT AND GRAFT (2) Fall Code(s): W19.XXXA - UNSPECIFIED FALL, INITIAL ENCOUNTER (3) Hypokalemia Assessment/Plan: Repleted K; keep 4.0-4.5. F/u Mg (1.8 on 04/24/18): keep 2.0-2.4 Keep PO4 2.5-4.9. 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 Code(s): E86.0 - DEHYDRATION (7) Elevated LFTs Assessment/Plan: Acute elevation; now decreasing (AST now WNL); Code(s): R94.5 - ABNORMAL RESULTS OF LIVER FUNCTION STUDIES
[2018-05-01] MEDS ORDERED: PT OWN MED DRAWER 7, Y5N ONE (09:37)
[2018-05-01] MEDS: ASPIRIN 81 MG CHEWABLE TABLETS PO SCH (09:46)
[2018-05-01] MEDS: SENNOSIDES 8.6MG TABLET (FP) PO SCH (09:46)
[2018-05-01] MEDS: PANTOPRAZOLE 40 MG TABLET (FP) PO SCH (09:46)
[2018-05-01] MEDS: CLOPIDOGREL BISULFATE 75 MG TABLET (FP) PO SCH (09:46)
[2018-05-01] MEDS: PRIMIDONE 250 MG TABLET PO SCH ×2 (09:47→21:34)
[2018-05-01] MEDS: CEFUROXIME AXETIL 500 MG TABLET PO SCH ×2 (09:47→21:34)
[2018-05-01] MEDS: SILVER SULFADIAZINE 1% TOP CREAM 50 GM JAR TP SCH (09:48)
[2018-05-01] MEDS: ACETAMINOPHEN 325 MG TABLET (FP) PO PRN (11:04)
--- NOTE | 2018-05-01 13:07 | PN ---
Progress Note (short form) - Note Progress Note: PULMONARY Denies shortness of breath, cough or fevers. Vital Signs Period Temp Pulse Resp BP Sys/Chen Pulse Ox Last 24 Hr 97.9 F-98.7 F 86-92 20-20 116-129/55-68 94-98 Gen: NAD at rest, resting tremor Heart: RRR Lung: decreased breath sounds at the bases Abd: soft, nontender Ext: no edema CBC, BMP 04/30/18 07:00 04/30/18 07:00 Active Medications Acetaminophen (Tylenol -) 650 mg PO Q8H PRN PRN Reason: FEVER Last Admin: 05/01/18 11:04 Dose: 650 mg Albuterol Sulfate (Ventolin 0.083% Nebulizer Soln -) 1 amp NEB Q4H PRN PRN Reason: SHORT OF BREATH/WHEEZING Albuterol/Ipratropium (Duoneb -) 1 amp NEB RQID [facility] Last Admin: 05/01/18 11:41 Dose: 1 amp Aspirin (Asa -) 81 mg PO DAILY [facility] Last Admin: 05/01/18 09:46 Dose: 81 mg Cefuroxime Axetil (Ceftin -) 500 mg PO BID [facility] Last Admin: 05/01/18 09:47 Dose: 500 mg Clopidogrel Bisulfate (Plavix -) 75 mg PO DAILY [facility] Last Admin: 05/01/18 09:46 Dose: 75 mg Dextrose (D50w (Vial) -) 25 gm IVPUSH PRN PRN PRN Reason: Hypoglycemia BGM<70 Ibuprofen (Motrin -) 600 mg PO Q8H PRN PRN Reason: PAIN LEVEL 1 - 3 Last Admin: 04/28/18 21:51 Dose: 600 mg Insulin Aspart (Novolog Vial Sliding Scale -) 1 vial SQ ACHS [facility]; Protocol Last Admin: 05/01/18 11:23 Dose: 6 unit Insulin Detemir (Levemir Vial) 7 units SQ ACBK [facility] Last Admin: 05/01/18 06:22 Dose: 7 units Insulin Detemir (Levemir Vial) 4 units SQ HS [facility] Last Admin: 04/30/18 21:52 Dose: 4 units Pantoprazole Sodium (Protonix -) 40 mg PO DAILY [facility] Last Admin: 05/01/18 09:46 Dose: 40 mg Primidone (Mysoline -) 250 mg PO BID [facility] Last Admin: 05/01/18 09:47 Dose: 250 mg Senna (Senna -) 2 tab PO DAILY [facility] Last Admin: 05/01/18 09:46 Dose: Not Given Silver Sulfadiazine (Silvadene -) 1 applic TP DAILY [facility] Last Admin: 05/01/18 09:48 Dose: 1 appful A/P Pneumonia Influenza A Septic Shock resolved COPD DM Decubitus Ulcer Essential Tremor - complete antibiotics - completed tamiflu - O2 as needed - inhaled bronchodilators as needed - DVT prophylaxis - d/c planning
[2018-05-02] MEDS: INSULIN (LEVEMIR) 100 UNITS/ML UNITS SQ SCH ×2 (06:09→22:43)
[2018-05-02] MEDS: INSULIN SLIDING SCALE (NOVOLOG) 1 VIAL SQ SCH ×4 (06:09→22:42)
[2018-05-02] MEDS: ALBUTEROL SO4 2.5/IPRATROPIUM 0.5 INH SOL 3 ML VIAL.NEB. NEB SCH ×4 (07:30→20:30)
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
[2018-05-02] MEDS: PRIMIDONE 250 MG TABLET PO SCH ×2 (10:24→23:53)
[2018-05-02] MEDS: CLOPIDOGREL BISULFATE 75 MG TABLET (FP) PO SCH (10:24)
[2018-05-02] MEDS: ASPIRIN 81 MG CHEWABLE TABLETS PO SCH (10:24)
[2018-05-02] MEDS: PANTOPRAZOLE 40 MG TABLET (FP) PO SCH (10:25)
[2018-05-02] MEDS: SENNOSIDES 8.6MG TABLET (FP) PO SCH (10:25)
[2018-05-02] MEDS: SILVER SULFADIAZINE 1% TOP CREAM 50 GM JAR TP SCH (10:25)
--- NOTE | 2018-05-02 11:39 | PN ---
Progress Note (short form) - Note Progress Note: PULMONARY Denies shortness of breath, cough or fevers. Vital Signs Period Temp Pulse Resp BP Sys/Chen Pulse Ox Last 24 Hr 98.2 F-98.3 F 83-93 18-20 117-139/42-74 98 Gen: NAD at rest, resting tremor Heart: RRR Lung: decreased breath sounds at the bases Abd: soft, nontender Ext: no edema CBC, BMP 04/30/18 07:00 04/30/18 07:00 Active Medications Acetaminophen (Tylenol -) 650 mg PO Q8H PRN PRN Reason: FEVER Last Admin: 05/01/18 11:04 Dose: 650 mg Albuterol Sulfate (Ventolin 0.083% Nebulizer Soln -) 1 amp NEB Q4H PRN PRN Reason: SHORT OF BREATH/WHEEZING Albuterol/Ipratropium (Duoneb -) 1 amp NEB RQID [facility] Last Admin: 05/01/18 20:45 Dose: 1 amp Aspirin (Asa -) 81 mg PO DAILY [facility] Last Admin: 05/02/18 10:24 Dose: 81 mg Clopidogrel Bisulfate (Plavix -) 75 mg PO DAILY [facility] Last Admin: 05/02/18 10:24 Dose: 75 mg Dextrose (D50w (Vial) -) 25 gm IVPUSH PRN PRN PRN Reason: Hypoglycemia BGM<70 Ibuprofen (Motrin -) 600 mg PO Q8H PRN PRN Reason: PAIN LEVEL 1 - 3 Last Admin: 04/28/18 21:51 Dose: 600 mg Insulin Aspart (Novolog Vial Sliding Scale -) 1 vial SQ ACHS [facility]; Protocol Last Admin: 05/02/18 11:35 Dose: 4 unit Insulin Detemir (Levemir Vial) 7 units SQ ACBK [facility] Last Admin: 05/02/18 06:09 Dose: 7 units Insulin Detemir (Levemir Vial) 4 units SQ HS [facility] Last Admin: 05/01/18 21:35 Dose: 4 units Pantoprazole Sodium (Protonix -) 40 mg PO DAILY [facility] Last Admin: 05/02/18 10:25 Dose: 40 mg Primidone (Mysoline -) 250 mg PO BID [facility] Last Admin: 05/02/18 10:24 Dose: 250 mg Senna (Senna -) 2 tab PO DAILY [facility] Last Admin: 05/02/18 10:25 Dose: 2 tab Silver Sulfadiazine (Silvadene -) 1 applic TP DAILY [facility] Last Admin: 05/02/18 10:25 Dose: Not Given A/P Pneumonia Influenza A Septic Shock resolved COPD DM Decubitus Ulcer Essential Tremor - completed antibiotics - completed tamiflu - O2 as needed - inhaled bronchodilators as needed - DVT prophylaxis - d/c planning
[2018-05-02] MEDS ORDERED: INSULIN (NOVOLOG) ASPART 100 UNITS/ML 10ML VIAL ONE ×2 (17:19→21:52)
[2018-05-02] MEDS ORDERED: INSULIN (LEVEMIR) 100 UNITS/ML UNITS SQ ONE (21:52)
[2018-05-02] MEDS ORDERED: PT OWN MED DRAWER 7, Y5N ONE (21:53)
[2018-05-03] MEDS: INSULIN SLIDING SCALE (NOVOLOG) 1 VIAL SQ SCH ×2 (06:33→11:43)
[2018-05-03] MEDS: INSULIN (LEVEMIR) 100 UNITS/ML UNITS SQ SCH (06:36)
[2018-05-03] MEDS ORDERED: INSULIN (LEVEMIR) 100 UNITS/ML UNITS SQ ONE (06:44)
[2018-05-03] MEDS ORDERED: INSULIN (NOVOLOG) ASPART 100 UNITS/ML 10ML VIAL ONE ×2 (06:44→11:32)
[2018-05-03] MEDS: ALBUTEROL SO4 2.5/IPRATROPIUM 0.5 INH SOL 3 ML VIAL.NEB. NEB SCH ×2 (07:15→11:00)
[2018-05-03 10:00] VITALS: BP 117/53; PULSE 94; TEMP 98.1
[2018-05-03] MEDS ORDERED: PT OWN MED DRAWER 7, Y5N ONE (10:10)
[2018-05-03] MEDS: SILVER SULFADIAZINE 1% TOP CREAM 50 GM JAR TP SCH (10:11)
[2018-05-03] MEDS: ASPIRIN 81 MG CHEWABLE TABLETS PO SCH (10:11)
[2018-05-03] MEDS: SENNOSIDES 8.6MG TABLET (FP) PO SCH (10:11)
[2018-05-03] MEDS: CLOPIDOGREL BISULFATE 75 MG TABLET (FP) PO SCH (10:11)
[2018-05-03] MEDS: PANTOPRAZOLE 40 MG TABLET (FP) PO SCH (10:11)
[2018-05-03] MEDS: PRIMIDONE 250 MG TABLET PO SCH (10:11)
[2018-05-03] MEDS: ACETAMINOPHEN 325 MG TABLET (FP) PO PRN (11:18)
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
--- NOTE | 2018-05-03 13:35 | PN ---
Progress Note (short form) - Note Progress Note: PULMONARY Denies shortness of breath, cough or fevers. VSS Gen: NAD at rest, resting tremor Heart: RRR Lung: decreased breath sounds at the bases Abd: soft, nontender Ext: no edema LABS/MEDS/NOTES REVIEWED A/P Pneumonia Influenza A Septic Shock resolved COPD DM Decubitus Ulcer Essential Tremor - completed antibiotics - completed tamiflu - O2 as needed - inhaled bronchodilators as needed - DVT prophylaxis - d/c planning Nikhil QUEVEDO MD
== END 2018-05-03 14:02 | DRG 871 ==
LOC: JER 12:03 → JERBED 17:06 → JICU 20:01 → J6S 04-27 13:06
PROVIDERS: ADMIT Specialist; ATTEND Specialist
PROC: 05HM33Z Insertion of Infusion Device into Right Internal Jugular Vein, Percutaneous Approach (ICD-10-PCS; principal; 2018-04-22)
PROC: B513ZZA Fluoroscopy of Right Jugular Veins, Guidance (ICD-10-PCS; 2018-04-22)
DX: A41.9 Sepsis, unspecified organism (principal); E11.10 Type 2 diabetes mellitus with ketoacidosis without coma; J98.11 Atelectasis; K86.2 Cyst of pancreas; E87.2 Acidosis; E87.1 Hypo-osmolality and hyponatremia; E46 Unspecified protein-calorie malnutrition; Z68.1 Body mass index [BMI] 19.9 or less, adult; J10.1 Influenza due to other identified influenza virus with other respiratory manifestations; I25.10 Atherosclerotic heart disease of native coronary artery without angina pectoris; R65.20 Severe sepsis without septic shock; S01.01XA Laceration without foreign body of scalp, initial encounter; J44.9 Chronic obstructive pulmonary disease, unspecified; I25.2 Old myocardial infarction; E86.0 Dehydration; R50.9 Fever, unspecified; R94.5 Abnormal results of liver function studies; D12.6 Benign neoplasm of colon, unspecified; K44.9 Diaphragmatic hernia without obstruction or gangrene; E11.65 Type 2 diabetes mellitus with hyperglycemia; E03.9 Hypothyroidism, unspecified; R26.9 Unspecified abnormalities of gait and mobility; M51.36 Other intervertebral disc degeneration, lumbar region; D64.9 Anemia, unspecified; M54.5 Low back pain; M25.519 Pain in unspecified shoulder; R56.9 Unspecified convulsions; S00.83XA Contusion of other part of head, initial encounter; W18.30XA Fall on same level, unspecified, initial encounter; Y92.091 Bathroom in other non-institutional residence as the place of occurrence of the external cause; E87.6 Hypokalemia; E11.42 Type 2 diabetes mellitus with diabetic polyneuropathy; L89.152 Pressure ulcer of sacral region, stage 2; F32.9 Major depressive disorder, single episode, unspecified; Z85.41 Personal history of malignant neoplasm of cervix uteri; Z95.1 Presence of aortocoronary bypass graft; Z87.891 Personal history of nicotine dependence; Z78.0 Asymptomatic menopausal state
CPT/HCPCS: 36415; 70450-TC; 71045-TC-FY; 72125-TC; 72170-TC-FY; 73030-TC-LT-FY; 74176-TC; 80048; 80053; 80076; 81003; 81015; 82009; 82105; 82550; 82553; 82607; 82746; 82787; 82803; 82962; 82977; 83516; 83605; 83735; 84100; 84443; 84484; 85025; 85027; 85610; 85651; 85730; 86038; 86140; 86301; 86850; 86870; 86900; 86901; 86902; 87040; 87070; 87081; 87086; 87205; 87804; 87899; 93005; 93010; 94640; 97116-GP; 97161-GP; 99285-25; G0480; J0131; J7030